=== PATIENT | female | born 1985 | race Caucasian/White ===

== ENCOUNTER 2017-11-14 22:22 | Emergency (ER) | payer MEDICAID, SELFPAY ==
[2017-11-14 22:23] VITALS: BP 112/62; PULSE 97; RESP 15; TEMP 37.1; BMI 22.1
--- NOTE | 2017-11-14 22:36 | RAD_ITS ---
STUDY: X-RAY - LEFT RADIUS AND ULNA REASON FOR EXAM: Female, 32 years old. Possible foreign body. TECHNIQUE: 2 view(s) of the forearm. COMPARISON: None. FINDINGS: There is a linear 6 mm foreign body in the dorsal soft tissues at approximately the level of the distal third of the ulna. Normal visualized radius. Normal visualized ulna. RAD/Forearm 2 Views IMPRESSION: 6 mm foreign body consistent with a broken needle in the dorsal distal soft tissues. Electronically Signed: Alejandro Carlos MD at 23:27 EDT , Service support ,
--- NOTE | 2017-11-14 22:44 | ED.VISSUMM ---
- ER Visit Summary Date of Service: 11/14/17 Chief Complaint: Metallic foreign body left forearm History of Present Illness: The patient is a 32 F who is right-hand dominant presents because of concern for metallic foreign body left forearm. She states she was injecting methamphetamine yesterday. She believes the needle broke. She complains of pain and swelling. She denies fever, chills night sweats. Denies a traumatic fever, murmur, SPE or being immune suppressed. She states she does not have HIV. Patient states she has hepatitis C. Mother states she was in a six-month rehab program. She is only been out for a couple of weeks. Physical Examination: Vital signs are unremarkable. He is afebrile. There is slight erythema and fluctuance mid dorsal ulnar side left forearm. There is no lymphangitis. There is no epitrochlear extra lymphadenopathy. Heart is regular without murmur, gallop or rub. Lungs are clear auscultation. There is no splinter hemorrhages noted. No Janeway or Osler nodes noted. Test Results: Two-view x-ray of the left forearm was obtained. There is no metallic foreign body noted. Emergency Department Course and Treatment: X-ray of the left forearm was obtained to evaluate for retained metallic foreign body. Patient will need I&D of subcutaneous abscess. Patient was prepped in sterile manner. The area was anesthetized 1% lidocaine. Incision was made. There is purulent material freely flowed from the incision. Blunt dissection was undertaken. Wick was placed. Since there is mild erythema of the skin and she admits to IV drug use she was prescribed cephalexin and Bactrim. She received first dose in the emergency department. Treatment Plan: Since she has no Dr. she was referred to [facility] [address] [place], [place] [address] for follow-up in 2 days for wound check and removal of wick Disposition: Discharged home in stable and improved condition Impression: 1. Subcutaneous left forearm abscess with cellulitis 2. IV drug use 3. History of hepatitis C This note was generated with [employer] dictation software. It may contain incorrect words, spelling, and punctuation that were not noted in review of the chart prior to signing ED Disposition - Plan for ED Patient: Disposition: Home or Assisted Living Chief Complaint: Upper Extremity Injury Instructions: ED Abscess IandD Prescriptions: Smz/Tmp Ds [Bactrim Ds] 1 tab PO BID #14 tab Cephalexin 500 mg PO 4X/DAY #28 cap Referrals: Care Physician,No Primary [Primary Care Provider] - Gracie Medina [NON-STAFF] - 2 Days for wound check
--- NOTE | 2017-11-14 22:47 | ED.DCSUM_ITS ---
- ER Visit Summary Date of Service: 11/14/17 Chief Complaint: Metallic foreign body left forearm History of Present Illness: The patient is a 32 F who is right-hand dominant presents because of concern for metallic foreign body left forearm. She states she was injecting methamphetamine yesterday. She believes the needle broke. She complains of pain and swelling. She denies fever, chills night sweats. Denies a traumatic fever, murmur, SPE or being immune suppressed. She states she does not have HIV. Patient states she has hepatitis C. Mother states she was in a six-month rehab program. She is only been out for a couple of weeks. Physical Examination: Vital signs are unremarkable. He is afebrile. There is slight erythema and fluctuance mid dorsal ulnar side left forearm. There is no lymphangitis. There is no epitrochlear extra lymphadenopathy. Heart is regular without murmur, gallop or rub. Lungs are clear auscultation. There is no splinter hemorrhages noted. No Janeway or Osler nodes noted. Test Results: Two-view x-ray of the left forearm was obtained. There is no metallic foreign body noted. Emergency Department Course and Treatment: X-ray of the left forearm was obtained to evaluate for retained metallic foreign body. Patient will need I&D of subcutaneous abscess. Patient was prepped in sterile manner. The area was anesthetized 1% lidocaine. Incision was made. There is purulent material freely flowed from the incision. Blunt dissection was undertaken. Wick was placed. Since there is mild erythema of the skin and she admits to IV drug use she was prescribed cephalexin and Bactrim. She received first dose in the emergency department. Treatment Plan: Since she has no Dr. she was referred to [facility] [address] [place], [place] [id number] for follow-up in 2 days for wound check and removal of wick Disposition: Discharged home in stable and improved condition Impression: 1. Subcutaneous left forearm abscess with cellulitis 2. IV drug use 3. History of hepatitis C This note was generated with [employer] dictation software. It may contain incorrect words, spelling, and punctuation that were not noted in review of the chart prior to signing ED Disposition - Plan for ED Patient: Disposition: Home or Assisted Living Chief Complaint: Upper Extremity Injury Instructions: ED Abscess IandD Prescriptions: Smz/Tmp Ds [Bactrim Ds] 1 tab PO BID #14 tab Cephalexin 500 mg PO 4X/DAY #28 cap Referrals: Care Physician,No Primary [Primary Care Provider] - Gracie Medina [NON-STAFF] - 2 Days for wound check
[2017-11-14] MEDS: Diphth,Pertuss(Acell),Tet Vac 0.5 ML Vial IM (22:56)
[2017-11-14 23:39] VITALS: RESP 18
[2017-11-14] MEDS: Cephalexin 500 MG Capsule PO (23:39)
[2017-11-14] MEDS: Smz/Tmp Ds Tablet 1 TABLET PO (23:39)
== END 2017-11-14 23:40 | disposition home or self-care (01) ==
PROVIDERS: Emergency Provider Emergency Medicine
DX: L02.414 Cutaneous abscess of left upper limb (principal); L03.114 Cellulitis of left upper limb; B96.89 Other specified bacterial agents as the cause of diseases classified elsewhere; B19.20 Unspecified viral hepatitis C without hepatic coma; F15.90 Other stimulant use, unspecified, uncomplicated; Z72.0 Tobacco use
CPT/HCPCS: 10061; 10060; 73090; 90471; 90715; 99283

== ENCOUNTER 2018-04-24 03:47 | Emergency (ER) | payer MEDICAID, SELFPAY ==
[2018-04-24 03:48] VITALS: BP 117/80; PULSE 98; RESP 12; TEMP 35.9; O2SAT 100; BMI 22.6
[2018-04-24 03:57] VITALS: BP 122/88; RESP 14
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
[2018-04-24 04:57] VITALS: BP 122/88; PULSE 91; RESP 14; O2SAT 98
[2018-04-24 05:00] VITALS: RESP 16
[2018-04-24 06:00] VITALS: RESP 14
[2018-04-24 07:17] VITALS: BP 125/80; PULSE 110; RESP 16; O2SAT 100
== END 2018-04-24 07:18 | disposition home or self-care (01) ==
PROVIDERS: Emergency Provider Emergency Medicine
DX: S06.0X0A Concussion without loss of consciousness, initial encounter (principal); S16.1XXA Strain of muscle, fascia and tendon at neck level, initial encounter; R40.2410 Glasgow coma scale score 13-15, unspecified time; V47.6XXA Car passenger injured in collision with fixed or stationary object in traffic accident, initial encounter; Y93.9 Activity, unspecified; Y92.9 Unspecified place or not applicable; F17.200 Nicotine dependence, unspecified, uncomplicated
CPT/HCPCS: 70450; 72125; 99284

== ENCOUNTER 2018-05-01 06:42 | Emergency (ER) | payer MEDICAID, SELFPAY ==
[2018-05-01 06:43] VITALS: BP 118/68; PULSE 120; RESP 16; TEMP 37.1; O2SAT 97; BMI 22.8
[2018-05-01] MEDS: morphine 8 MG/ML Syringe IM (07:32)
--- NOTE | 2018-05-01 07:33 | ED.VISSUMM ---
- ER Visit Summary Date of Service: 05/01/18 Chief Complaint: Abscess History of Present Illness: The patient is a 32 F with no primary care physician. She has an abscess to the right side of her face that she states began approximately a week ago. She states that she believes that this is due to picking on it while I was taking meth. States the area feels tight and she has pain is 510 when she touches it. She denies any pain otherwise. No constitutional symptoms. No fever, chills, nausea, or vomiting. She denies any dental pain. No sensitivity to hot or cold temperatures. Physical Examination: Vitals: 98.7, 118/68, 120, 16, 98% on room air which is not hypoxic. General: Well-nourished and well-developed. Patient appears to be under the influence of methamphetamine at this time. Head: Normocephalic atraumatic. Neck: Supple, no lymphadenopathy. No JVD. Nontender. Cardiovascular: Regular rate and rhythm. No murmurs. Respiratory: No respiratory distress. Clear to auscultation bilaterally. Abdominal: Soft, nontender, nondistended, normal bowel sounds. No guarding, rebound, or peritoneal signs. Back: Nontender. Extremities: Nontender, no edema. Track zavala to her antecubital fossa and forearms bilaterally. There is no evidence of infection. No erythema or abscess. Skin: 3 cm x 2 cm abscess at the angle of her mandible on the right. There is minimal overlying erythema. Neurologic: Alert and oriented ?3. Cranial nerves II through XII are intact. Normal strength and sensation. Psych: Normal affect. Emergency Department Course and Treatment: Patient was given a dose of morphine IM. She is given doxycycline p.o. She had an I&D performed. She tolerated this well. Treatment Plan: Patient will be discharged on doxycycline. She reports that she has a long-standing relationship with Dr. Kilo Olivas. She will be discharged instructions to follow-up with them in 2 days for a wound check. Return to the emergency department for any worsening symptoms. Disposition: To home in improved and stable condition. Impression: 1. Abscess to right mandible. 2. Incision and drainage. Procedure Note: Abscess was cleansed with chlorhexidine soap. Anesthetized with 1% lidocaine without epinephrine. An incision was made with an 11 scalpel blade. A moderate amount of pus was drained. Curved hemostats were used to break up loculations. The wound was copiously irrigated with normal saline. The patient tolerated it well. This note was generated with [employer] dictation software. It may contain incorrect words, spelling, and punctuation that were not noted in review of the chart prior to signing ED Disposition - Plan for ED Patient: Disposition: Home or Assisted Living Chief Complaint: Abscess Instructions: ED Abscess IandD Prescriptions: Doxycycline 100 mg PO BID #20 capsule Ibuprofen [Motrin] 400 mg PO Q6H PRN #30 tablet PRN Reason: Pain Mupirocin [Bactroban] 1 applic TOPICAL TID #1 tube Referrals: Kilo Olivas MD [STAFF PHYSICIAN] - 2 Days for wound check
[2018-05-01] MEDS: Doxycycline 100 MG CAPSULE PO (08:30)
[2018-05-01 08:31] VITALS: PULSE 115; RESP 17; O2SAT 95
== END 2018-05-01 08:33 | disposition home or self-care (01) ==
PROVIDERS: Emergency Provider Emergency Medicine
DX: L02.01 Cutaneous abscess of face (principal); J45.909 Unspecified asthma, uncomplicated; Z72.0 Tobacco use; Z86.19 Personal history of other infectious and parasitic diseases
CPT/HCPCS: 10060; 96372; 99283

== ENCOUNTER 2018-06-13 20:13 | Emergency (ER) | payer MEDICAID, SELFPAY ==
[2018-06-13 20:13] VITALS: BP 112/75; PULSE 115; RESP 14; TEMP 36.7; O2SAT 98; BMI 20.3
[2018-06-13] MEDS: Smz/Tmp Ds Tablet 1 TABLET PO (20:48)
--- NOTE | 2018-06-13 20:56 | ED.DCSUM_ITS ---
- ER Visit Summary Date of Service: 06/13/18 Chief Complaint: Abscess History of Present Illness: The patient is a 32 F presents to the emergency department with abscess. The patient has a history of MRSA. She has a history of methamphetamine and heroin abuse. She states over the past 4 days, she had an area of redness in the upper outer aspect of her labia. She states that she thought was an ingrown hair and pulled 2 hairs out but it did not drain. She states she tried to squeeze it and it seemed to make it worse. She denies any fevers or chills. She has not tried anything else for it. Physical Examination: Exam is relatively unremarkable. The patient does have a 1 cm ovoid area of abscess with mild surrounding cellulitis in the upper outer aspect of the upper portion of the right labia. It is not a Bartholin's gland cyst. It does not communicate with the introitus. Test Results: [] Emergency Department Course and Treatment: Exam was done with female nurse manufacturing engineer automotive. I do feel the patient is going require incision and drainage. The area was prepped. It was anesthetized with lidocaine with epinephrine. Small incision was made and loculations were expressed. The pocket was shallow and would not tolerate packing. Patient will continue warm compresses. She will be placed on Bactrim. She was counseled concerning symptoms and reasons to return. I do want her to follow-up in 48 hours for wound check. She is comfortable with this plan of care. Treatment Plan: [] Disposition: Discharge Impression: Pelvic abscess with incision and drainage This note was generated with [employer] dictation software. It may contain incorrect words, spelling, and punctuation that were not noted in review of the chart prior to signing ED Disposition - Plan for ED Patient: Chief Complaint: Abscess Instructions: ED Abscess IandD Prescriptions: Smz/Tmp Ds [Bactrim Ds] 1 tab PO BID #14 tab Referrals: Gracie Medina [NON-STAFF] - 2 Days for wound check
[2018-06-13 21:29] VITALS: PULSE 80; RESP 15; O2SAT 95
== END 2018-06-13 21:29 | disposition home or self-care (01) ==
LOC: ED 20:40
PROVIDERS: Emergency Provider Emergency Medicine
DX: N76.4 Abscess of vulva (principal); Z86.14 Personal history of Methicillin resistant Staphylococcus aureus infection
CPT/HCPCS: 56405; 99282

== ENCOUNTER 2018-07-12 10:34 | Day surgery (SDC) | payer MEDICAID, SELFPAY ==
[2018-07-12 10:54] VITALS: BP 110/70; PULSE 108; RESP 18; TEMP 36.9; O2SAT 100; BMI 21.7
--- NOTE | 2018-07-12 12:05 | PCM.DC ---
You will use the following diet at home:: Regular Discharge Activity: Return to Normal Activity, - - Keep dressing dry Additional Activity Instructions:: Call [facility] to make an appointment for dressing removal Allergies/Adverse Reactions: Allergies No Known Allergies Allergy (Verified 06/13/18 20:16) Medications to take at Discharge Smz/Tmp Ds [Bactrim Ds] 1 tab PO BID #14 tab 06/13/18 Primary Care Physician: Care Physician,No Primary [Primary Care Provider] - Test Results: Test results from this visit will be discussed in further detail at your follow-up appointment, if applicable.
--- NOTE | 2018-07-12 12:48 | OP.PCM_ITS ---
Report of Operation Date of Procedure: 07/12/18 Pre-Operative Diagnosis: left auricular hematoma Post-Operative Diagnosis: same Surgery/Procedure Performed:: incision and drainage left auricular hematoma with bolster placement Type of Anesthesia:: Local Specimen's removed: none Estimated Blood Loss (mL): minimal Description of Procedure: The patient was taken to the OR on 05/11/19. She was placed in the supine position on the OR table. The left ear was prepped and draped steriley. I injected 1% lidocaine into the skin medially and laterally in the ear. I then made a stab incision in the conchal bowl skin with a 15 blade. An iris scissors was placed into the hematoma cavity and the hematoma was then evacuated with suction and pressure. Next, I closed the incision with 6-0 fast absorbing gut. A bolster was created with dental rolls. A roll was placed in the conchal bowl and another was placed posteriorly. This was sewn through and through with 3-0 Prolene. A Graham dressing was then applied. She was removed from the OR and brought to the holding area in stable condition. Blood loss minimal, replacement none. Sponge, needle and instrument count were correct at the end of the procedure.
[2018-07-12] MEDS: Acetaminophen 325 MG Tablet 650 MG PO (13:01)
[2018-07-12 13:02] VITALS: BP 104/78; BP 110/70; PULSE 70; RESP 18; TEMP 37.1; O2SAT 99
== END 2018-07-12 13:08 | disposition home or self-care (01) ==
LOC: SDC 10:36 → AC 10:37
PROVIDERS: Referring Provider Otolaryngology; Visit Provider Otolaryngology
PROC: (CPT 120; principal; 2018-07-12 11:40)
DX: H61.122 Hematoma of pinna, left ear (principal); F17.210 Nicotine dependence, cigarettes, uncomplicated
CPT/HCPCS: 69000

== ENCOUNTER 2018-07-26 22:23 | Emergency (ER) | payer MEDICAID, SELFPAY ==
[2018-07-26 22:24] VITALS: BP 153/60; PULSE 63; RESP 14; TEMP 36.4; O2SAT 93; BMI 21.5
--- NOTE | 2018-07-26 23:46 | ED.DCSUM_ITS ---
History of Present Illness Chief Complaint: Ear Problem Informant: Patient Narrative: Patient presenting for evaluation of her left ear, which is sore and swollen. She had a cauliflower ear and had surgical drainage [address] Olivas. She states that after half a week or so, she decided to cut out the sutures holding the bolsters herself, and removed everything. Subsequently, her auricular hematoma recurred. She went to an emergency department in [place] 4-5 days ago, had it aspirated and wrapped with gauze, and placed on Cipro, but subsequently it gradually became worse again. She saw ENT earlier today, Dr. Vincent covering for Dr. Olivas in the office, who advised her to return tomorrow morning to see her doctor and that she could come to the ER if it got worse. She states it is a little more swollen now than it was earlier today, but admits that it has been swollen for about a week as it is now, to some degree or another. She denies any fevers, drainage, or significant increase in her pain. Past Medical History - Allergies and Home Meds Allergies/Adverse Reactions: Allergies No Known Allergies Allergy (Verified 07/26/18 22:24) Primary Care Physician: Omkar Olivas MD [STAFF PHYSICIAN] - 07/27/18 (as scheduled) Care Physician,No Primary [Primary Care Provider] - Lives: Spouse/ Significant Other Smoking Status: Current every day smoker Drugs: - - frequent methamphetamine use Review of Systems General: Denies: Chills, Fever ENT: Reports: Left ear pain Physical Exam Vital Signs/Narrative: Vital Signs Temp Pulse Resp BP Pulse Ox 07/26/18 22:24 97.5 F L 63 14 153/60 H 93 Inital Vital Signs reviewed: Yes General: Well nourished, Well developed, No Acute Distress - Sitting in the bed, using nail georgian, painting her nails Head: Normocephalic, Atraumatic Eyes: Perrl, EOMI ENT: No rhinorrhea, TM's clear, - - large, mildly tender, auricular hematoma left pinna. no erythema/cellulitis. no discharge expressible from otherwise unremarkable recent aspiration site anteriorly. not fluctuant. no mastoid swelling/tenderness/erythema.. Negative for: Nasal congestion, Sinus tenderness Neck: Supple, Nontender, No lymphadenopathy Respiratory: No distress Skin: Normal color, No rash Neurological: Alert, Oriented x3, Cranial nerves II-XII grossly intact, Normal Strength, Normal Sensation Psychological: Normal affect, Normal Mood Diagnostic/Tx/Re-eval - Medical Decision Making I discussed with Dr. Olivas, who happened to be on-call for ENT tonight. He knows the patient, and states she will need the surgery repeated, in the operating room. He states it will not be harmful for the patient to wait to have this done. I discussed with the patient that she presents when the emergency department is full, and I am the only physician here. I offered to open her auricle and drain the hematoma, but there is no point in doing that at this time, given her recent history, unless I am able to suture bolsters in. That will take some time, I offered to do it for her. I advised her that there may be a wait before I am able to perform the procedure. She states she does not want to wait, states she has an appointment at 0945 with ENT, and prefers to do that. Given her recent history, I do not think that simply aspirating the blood and having it recur again would be helpful here, although it would be faster and less complicated, since it would increase the risk for infection. ED Disposition - Plan for ED Patient: Disposition: Home or Assisted Living Diagnosis: Hematoma of auricle Instructions: ED Wound Check Post Op No Infec Referrals: Care Physician,No Primary [Primary Care Provider] - Omkar Olivas MD [STAFF PHYSICIAN] - 07/27/18 (as scheduled) Additional Instructions: Continue taking your Cipro.
== END 2018-07-26 23:56 | disposition home or self-care (01) ==
PROVIDERS: Emergency Provider Emergency Medicine
DX: H61.122 Hematoma of pinna, left ear (principal); F15.90 Other stimulant use, unspecified, uncomplicated; F17.200 Nicotine dependence, unspecified, uncomplicated
CPT/HCPCS: 99282

== ENCOUNTER 2018-08-04 20:24 | Emergency (ER) | payer MEDICAID, SELFPAY ==
[2018-08-04 20:25] VITALS: BP 120/84; PULSE 120; RESP 16; TEMP 36.7; O2SAT 98; BMI 21.4
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
== END 2018-08-04 21:38 | disposition left against medical advice (07) ==
LOC: ED 21:53
PROVIDERS: Emergency Provider Emergency Medicine
DX: R69 Illness, unspecified (principal); Z53.21 Procedure and treatment not carried out due to patient leaving prior to being seen by health care provider

== ENCOUNTER 2018-10-28 01:20 | Emergency (ER) | payer MEDICAID, SELFPAY ==
[2018-10-28 01:22] VITALS: BP 119/82; PULSE 108; RESP 16; TEMP 37.1; O2SAT 97; BMI 21.9
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
== END 2018-10-28 02:11 | disposition home or self-care (01) ==
LOC: ED 02:02
PROVIDERS: Emergency Provider Emergency Medicine
DX: S09.90XA Unspecified injury of head, initial encounter (principal); Y04.2XXA Assault by strike against or bumped into by another person, initial encounter; Y93.89 Activity, other specified; Y92.9 Unspecified place or not applicable; F17.200 Nicotine dependence, unspecified, uncomplicated
CPT/HCPCS: 99284

== ENCOUNTER 2018-11-25 13:56 | Emergency (ER) | payer MEDICAID, SELFPAY ==
[2018-11-25 13:57] VITALS: BP 137/68; PULSE 105; RESP 16; TEMP 36.7; O2SAT 99; BMI 21.3
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
[2018-11-25 16:10] VITALS: BP 113/70; PULSE 83; RESP 15
== END 2018-11-25 16:16 | disposition home or self-care (01) ==
PROVIDERS: Emergency Provider Emergency Medicine
DX: S00.431A Contusion of right ear, initial encounter (principal); Y04.0XXA Assault by unarmed brawl or fight, initial encounter; Y93.89 Activity, other specified; Y92.9 Unspecified place or not applicable; F17.200 Nicotine dependence, unspecified, uncomplicated
CPT/HCPCS: 70450; 99284

== ENCOUNTER 2019-02-18 21:17 | Emergency (ER) | payer MEDICAID, SELFPAY ==
[2019-02-18 21:18] VITALS: BP 128/80; PULSE 120; RESP 16; TEMP 36.8; O2SAT 98; BMI 21.3
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
[2019-02-18 21:27] VITALS: BP 130/85; PULSE 116; RESP 18; O2SAT 99
[2019-02-18 22:06] VITALS: BP 127/85; PULSE 111; RESP 18; O2SAT 100
== END 2019-02-18 22:07 | disposition home or self-care (01) ==
PROVIDERS: Emergency Provider Emergency Medicine
DX: T40.1X1A Poisoning by heroin, accidental (unintentional), initial encounter (principal); J96.90 Respiratory failure, unspecified, unspecified whether with hypoxia or hypercapnia; Y92.009 Unspecified place in unspecified non-institutional (private) residence as the place of occurrence of the external cause; F15.10 Other stimulant abuse, uncomplicated; F17.200 Nicotine dependence, unspecified, uncomplicated
CPT/HCPCS: 99285

== ENCOUNTER 2019-03-15 19:01 | Inpatient (IN) | payer MEDICAID, SELFPAY ==
[2019-03-10 00:11] VITALS: BMI 20.6
[2019-03-15 19:01] VITALS: BP 100/78; PULSE 109; RESP 16; TEMP 36.6; O2SAT 96; BMI 19.8
[2019-03-15] MEDS: 0.9% Normal Saline 1,000 ML 1000 ML IV (19:40)
[2019-03-15] MEDS: Ondansetron 4 MG/2 ML Vial IV (19:41)
--- NOTE | 2019-03-15 19:49 | ED.DCSUM_ITS ---
- ER Visit Summary Date of Service: 03/15/19 Chief Complaint: Vomiting and diarrhea History of Present Illness: The patient is a 33 F presenting with vomiting and diarrhea. She states this started yesterday. She states she is trying to stop using heroin and fentanyl. She is transitioning to methamphetamine in attempt to stop heroin and fentanyl. Today she thought she may be in withdrawal from heroin and used again this afternoon. She states her symptoms improved but did not resolve. She continued to have vomiting and diarrhea. Denies abdominal pain. Denies fever. Denies other complaints. Physical Examination: Vitals are stable. Patient is afebrile. Alert no acute distress. HEENT exam is unremarkable. Multiple abrasions Neck is supple. Lungs are clear and equal bilaterally. Heart is regular rate and rhythm. Abdomen is soft nontender nondistended. No guarding or rebound Extremities are unremarkable. Skin is warm and dry. No focal neurologic deficit. Remainder of exam is unremarkable. Emergency Department Course and Treatment: Patient was given IV fluids, Zofran. CBC shows white count 11.5. Chemistries show sodium 131, potassium 5.3, BUN 24, creatinine 1.88. Total bili 3.4, alk phos 413, ALT 1760, AST 1771, lipase is normal. Urinalysis shows 0-5 white blood cells, 0 red blood cells. hCG negative. Gallbladder ultrasound shows normal right upper quadrant ultrasound examination. Due to elevated liver enzymes, discussed with the hospitalist for admission. Disposition: Admission Impression: Elevated liver enzymes, opiate withdrawal, vomiting and diarrhea This note was generated with [employer] dictation software. It may contain incorrect words, spelling, and punctuation that were not noted in review of the chart prior to signing ED Disposition - Plan for ED Patient: Referrals: Care Physician,No Primary [Primary Care Provider] -
[2019-03-15 19:53] LABS: Absolute Lymphocyte Count 2.43 X10^3/uL (0.83-4.51); Absolute Neutrophil Count 8.1 X10^3/uL (2.0-7.7); Basophil# 0.06 X10^3/uL; Basophil% 0.5 % (0-1); Hematocrit 48.1 % (37-47); Hemoglobin 14.7 g/dL (12.0-15.0); Lymphocyte # 2.43 X10^3/ul (4.0); Lymphocyte % 21.1 % (19-41); Mean Corp Hgb Conc 30.6 g/dL (32-36); Mean Corpuscular Hgb 26.2 pg (27.0-32.0); Mean Corpuscular Volume 85.7 fL (81-99); Mean Platelet Vol. 10.8 fl (6.2-12.0); Monocyte# 0.87 X10^3/uL; Monocyte% 7.6 % (0-10); NRBC Flagged by Analyzer 0 % (0-5); Neutrophil # 8.07 X10^3/uL (2.7-7.7); Neutrophil % 70.3 % (47-70); POSITIVE MORPHOLOGY YES; Platelet Count 337 K/mm3 (150-450); RBC Distribution Width CV 14.9 % (11.6-14.6); Red Blood Count 5.61 M/mm3 (4.2-5.4); White Blood Count 11.5 K/mm3 (4.4-11.0)
[2019-03-15 19:54] LABS: Differential Indicated SCAN CRITERIA MET
[2019-03-15 20:00] LABS: Internal QC Validated? YES +Cl - CLEAR BKGD
[2019-03-15 20:02] LABS: Pregnancy, Serum, hCG Quali. NEGATIVE Negative
[2019-03-15 20:06] LABS: Color, Urine Amber (Yellow); Glucose, Dipstick Normal (Normal); Ketone-Dipstick 5 mg/dl (Negative); Leukocyte Esterase-Dipstick 100 /ul (Negative); Nitrite-Dipstick Positive (Negative); Occult Blood-Urine 25 /ul (Negative); Protein-Dipstick 100 mg/dl (Negative); Red Blood Cells-Urine 0 SEEN /hpf (0-5); Specific Gravity, Urine 1.025 (1.002-1.030); Urine Clarity Cloudy (Clear); Urine Urobilinogen 8 mg/dl (Normal)
[2019-03-15 20:11] LABS: Urine Bilirubin Dipstick 6 mg/dL (Negative)
[2019-03-15 20:14] LABS: Bacteria 4+ /hpf (None Seen)
[2019-03-15 20:16] LABS: Calcium Oxalate Crystals Ur 1+ /hpf (<or=2+); Squamous Epithelial Cells - UA 0-5 SEEN /hpf (5-10); White Blood Cells 0-5 SEEN /hpf (0-5)
[2019-03-15 20:17] LABS: Renal Epithelial Cells 0-5 SEEN /hpf (0-5)
[2019-03-15 20:20] LABS: Fine Granular Cast- Urine 0-5 SEEN /lpf (0-5); Mucous, Urine 1+ /hpf (<or=2+)
[2019-03-15 20:24] LABS: Hyaline Cast 5-10 SEEN /lpf (0-5)
[2019-03-15 20:32] LABS: ALB/GLOB Ratio 0.6 RATIO (0.9-2.4); AST(SGOT) 1771 U/L (15-37); Alanine Aminotransfer ALT/SGPT 1760 U/L (13-56); Albumin, Serum 3.8 g/dL (3.2-5.0); Alkaline Phosphatase 413 U/L (45-117); Anion Gap 10 (5-15); BUN 24 mg/dL (7-18); BUN/Creat Ratio 12.8 RATIO (10-20); Calcium,Total 9.7 mg/dL (8.5-10.1); Chloride 100 mmol/L (98-107); Creatinine, Serum 1.88 mg/dL (0.55-1.02); EST Glomerular Filtration Rate 32 mL/min (>60); Est Glom Filt Rate - Afr Amer 39 mL/min (>60); Globulin 6.2 g/dL (2.2-4.2); Glucose 97 mg/dL (74-106); Lipase 199 U/L (73-393); Potassium 5.3 mmol/L (3.5-5.1); Sodium Level 131 mmol/L (136-145)
[2019-03-15 20:33] LABS: Transitional Epithelial - Ur 5-10 SEEN /hpf (0-5)
[2019-03-15 20:34] LABS: Amorphous Sediment 1+
[2019-03-15 20:41] LABS: Platelet Estimate ADEQUATE (ADEQ)
[2019-03-15 20:42] LABS: Red Cell Morphology NORM C+C NORMAL (NORM C&C)
[2019-03-15] MEDS: 0.9% Normal Saline 1,000 ML 999 ML IV (21:02)
--- NOTE | 2019-03-15 21:19 | US_ITS ---
STUDY: ABDOMINAL ULTRASOUND - RIGHT UPPER QUADRANT REASON FOR VISIT: Female, 33 years old abdominal pain. TECHNIQUE: Ultrasound evaluation of the right upper quadrant was performed with real-time and static plascencia-scale imaging. TECHNICAL QUALITY: Adequate. COMPARISON: None. FINDINGS: Liver: The liver measures 16.2 cm. There is normal echogenicity of the liver. The bile ducts are within normal limits. There is hepatic color flow. The direction of portal flow is hepatopetal. There is no demonstrated mass lesion. Gallbladder: Contracted. The gallbladder wall measures 2 mm. There is a negative sonographic Montero's sign. There is no pericholecystic fluid. There are no gallstones. Common Bile Duct (C.B.D.): The common bile duct measures 3 mm. Pancreas: Normal size of the head, body and tail of the pancreas. There is normal echogenicity of the pancreas. There is no demonstrated pancreatic mass or cyst. Right Kidney: Normal size of the right kidney. The right kidney measures 10.4 x 4.7 x 5.2 cm. Normal renal cortex. The right cortex measures 1.6 cm. There is no demonstrated renal mass or cyst. There is no right hydronephrosis. US/Gallbladder IMPRESSION: Normal right upper quadrant ultrasound examination. Electronically Signed: Anh Mcmullen MD at 22:16 EDT Tel , Service support ,
--- NOTE | 2019-03-15 23:06 | HP.PCM_ITS ---
Problem List (1) History of hepatitis C Status: Chronic (2) History of heroin use Status: Chronic (3) History of methamphetamine use Status: Chronic (4) Hepatitis Status: Acute History of Present Illness Date of Admission: 03/15/19 Chief Complaint: NAUSEA; VOMITING AND DIARRHEA The patient is a 33 year old F with a significant history of hepatitis; tobacco abuse and drug use (heroin; fentanyl and methamphetamine) who presented to the emergency department with nausea; vomiting and diarrhea. Her symptoms started a day before presentation. She reports about 8 loose stools in the past 24 hours. At times her stool looked greenish. Patient thought she was withdrawing from heroin and fentanyl since she was trying to quit these medications by increasing her intake of methamphetamine. Accordingly, she resumed shooting heroin and fentanyl. Although her symptoms of nausea; vomiting and diarrhea improved with going back to heroin and fentanyl use her symptoms did not completely resolve. Also she reports heartburn that started about 3 days prior to presentation. At the emergency department she was found to have severely elevated liver enzymes as well as creatinine. Past Medical History Past Medical History (Chronic Problems): Chronic Problems History of hepatitis C (Chronic) History of heroin use (Chronic) History of methamphetamine use (Chronic) Allergies No Known Allergies Allergy (Verified 03/15/19 19:05) Home Medications: Ambulatory Orders Medication Instructions Recorded NK 02/18/19 Surgical History: - - Right ear hematoma drained 3 days ago. Lives: With Family Smoking Status: Current every day smoker Tobacco Use: Cigarettes Alcohol: None - *Family History Maternal History Items: Cancer - Lung cancer, Diabetes, Heart Disease, Hypertension, Renal Disease Paternal History Items: Cancer - colon; and lung, Diabetes, Heart Disease Review of Systems Constitutional: Denies: Chills, Fever, Weight Change HEENT: Denies: Head Aches, Sinus Congestion, Sinus Drainage Cardiovascular: Denies: Chest Pain, Palpitations Respiratory: Denies: Cough, Shortness of breath at rest, Sputum production Gastrointestinal: Reports: Abdominal Pain, Diarrhea, Nausea, Vomiting Genitourinary: Reports: Dysuria Musculoskeletal: Denies: Joint Pain, Joint Tenderness Skin: Reports: - - Diffuse excoriations Neurological: Denies: Numbness, Tingling, Focal weakness Psychiatric: Reports: Anxiety, Depression. Denies: Homicidal Ideations, Suicidal Ideations Hematologic/ Lymphatic: Denies: Easy Bruising, Easy Bleeding VTE Information - Inpt Only VTE Present on Admission: No VTE Mechan Device Prophylaxis: None VTE Pharm Prophylaxis ordered?: No Reason prophylaxis not ordered:: Treatment Not Indicated - Low risk Patient Problems: Active and Suspected Problems Hepatitis (Acute) - Physical Exam Vitals/I&O's: Vital Signs Temp Pulse Resp BP Pulse Ox 98 F 109 H 16 100/78 96 03/15/19 19:01 03/15/19 19:01 03/15/19 19:01 03/15/19 19:01 03/15/19 19:01 Oxygen Delivery Method Room Air Weight: 47.627 kg Body Mass Index (BMI) 19.8 Intake and Output for Last 24 Hours 03/13/19 03/14/19 03/15/19 23:59 23:59 23:59 Intake Total 1000 / 1000 Balance 1000 / 1000 General: Alert, Oriented x3, Cooperative HEENT: Atraumatic, PERRLA, EOMI, Normocephalic Neck: Supple, No JVD, Negative Carotid Bruits Lungs: Clear to auscultation, Normal air movement Cardiovascular: Regular rate, No murmurs Abdomen: Bowel Sounds Present, Soft, - - Mildly tender suprapubic area. Extremities: No edema, Capillary Refill Less than 3 Seconds Skin: - - Diffuse excoriations on nasal bridge and rest of body. Musculoskeletal: No Tenderness to Palpation of Joints or Extremities Neurological: Cranial nerves II-XII grossly intact Psych/Mental Status: Normal Affect, Appropriate Laboratory Results 03/15/19 19:45: WBC 11.5 H, RBC 5.61 H, Hgb 14.7, Hct 48.1 H, MCV 85.7, MCH 26.2 L, MCHC 30.6 L, RDW Std Deviation 47.0 H, RDW Coeff of Owen 14.9 H, Plt Count 337, MPV 10.8, Immature Gran % (Auto) 0.500, Neut % (Auto) 70.3 H, Lymph % (Auto) 21.1, [place] % (Auto) 7.6, Eos % (Auto) 0.0, Baso % (Auto) 0.5, Absolute Neuts (auto) 8.1 H, Absolute Lymphs (auto) 2.43, Nucleated RBC % 0, Diff Path Review May , Platelet Estimate ADEQUATE, RBC Morphology NORM C+C 03/15/19 19:45: Sodium 131 L, Potassium 5.3 H, Chloride 100, Carbon Dioxide 21.0, Anion Gap 10, BUN 24 H, Creatinine 1.88 H, Estim Creat Clear Calc 31.70, Est GFR (MDRD) Af Amer 39 L, Est GFR (MDRD) Non-Af 32 L, BUN/Creatinine Ratio 12.8, Glucose 97, Calcium 9.7, Total Bilirubin 3.40 H, AST 1771 H, ALT 1760 H, Alkaline Phosphatase 413 H, Total Protein 10.0 H, Albumin 3.8, Globulin 6.2 H, Albumin/Globulin Ratio 0.6 L, Lipase 199 03/15/19 19:45: Serum , Qual NEGATIVE 03/15/19 19:50: Urine Color [place], Urine Clarity Cloudy, Urine pH 5.0, Ur Specific [place] 1.025, Urine Protein 100 H, Urine Glucose (UA) Normal, Urine Ketones 5 H, Urine Occult Blood 25 H, Urine Nitrite Positive H, Urine Bilirubin 6 H, Urine Urobilinogen 8 H, Ur Leukocyte Esterase 100 H, Urine RBC 0 SEEN, Urine WBC 0-5 SEEN, Ur Squamous Epith Cells 0-5 SEEN, Ur Transition Epith Cell 5-10 SEEN, Ur Renal Epithelial Cell 0-5 SEEN, Calcium Oxalate Crystal 1+, Amorphous Sediment 1+, Urine Bacteria 4+, Hyaline Casts 5-10 SEEN, Fine Granular Casts 0-5 SEEN, Urine Mucus 1+ Assessment/Plan All Active Problems Hepatitis (Acute) The patient is a 33 year old F with a significant history of hepatitis; tobacco abuse and drug use (heroin; fentanyl and methamphetamine) who presented to the emergency department with nausea; vomiting and diarrhea; and found to have severely elevated liver enzymes and creatinine consistent with acute on chronic hepatitis. Acute on chronic hepatitis Ultrasound of the gallbladder emergency department was unremarkable. Noted to have severely elevated liver enzymes. Her AST was 1771; her ALT was 1760; her alkaline phosphatase was 413. She reports that she was diagnosed with hepatitis C around 2015 but she has to be 6 months clean before she can begin therapy for hepatitis C. On 09/17/2016 her AST was 68;and her ALT was 31. Will check acute hepatitis panel. Check Tylenol level. Check PT/INR. Trend CMP. Zofran as needed for nausea and vomiting. Supportive treatment with IV fluids. FAWN Patient's creatinine was 1.88 Review of records shows highest creatinine in 2017 was 1.11. All other creatinine level was less than 1. BUN is 24. BUN over creatinine is 12.8. Likely intrinsic renal from progression of prerenal FAWN. IV hydration. Avoid nephrotoxins. Trend BMP. Probable acute cystitis Patient can complain of suprapubic pain Her urine looks grossly brown. Her urinalysis is abnormal. Will start patient on ceftriaxone. Neutrophilic leukocytosis This could be due to hepatitis; cystitis; or other Trend CBC. Opiate dependence with risk of withdrawal We will put on buprenorphine taper Hyperkalemia On presentation her potassium was 5.3. Likely due to FAWN. IV fluids as above. Trend CMP Hyponatremia Likely secondary to vomiting. IV hydration as above Trend CMP DVT Prophylaxis Low risk; ambulate. Code Visit Inpatient E&M: 94517 Init Hosp L3
[2019-03-15 23:07] VITALS: BP 103/64; PULSE 88; RESP 16; O2SAT 99
[2019-03-15 23:46] VITALS: BP 103/64; PULSE 88; RESP 15; O2SAT 98
[2019-03-15 23:52] VITALS: BMI 19.5
[2019-03-15 23:56] VITALS: BP 112/69; PULSE 76; RESP 18; TEMP 36.7; O2SAT 99
[2019-03-15 23:57] VITALS: BP 108/62
[2019-03-16] VITALS: BMI 19.5
[2019-03-16] MEDS: 0.9% Normal Saline 1,000 ML 100 ML IV ×2 (00:38→10:08)
[2019-03-16] MEDS: Dicyclomine 10 MG Capsule 20 MG PO ×2 (00:38→08:32)
[2019-03-16] MEDS: Ceftriaxone 1 GM/50 ML BAG IV ×2 (01:03→22:45)
[2019-03-16] MEDS: Buprenorphine HCl 2 MG TAB.SUBL SL ×2 (01:03→08:32)
[2019-03-16] MEDS: 0.9% Saline Lock 10 ML Syringe IV ×2 (01:11→22:44)
[2019-03-16 01:40] LABS: Acetaminophen (Tylenol) Level < 2.0 ug/mL (10.0-30.0)
[2019-03-16 05:00] VITALS: BP 93/53; PULSE 81; RESP 16; TEMP 37.6; O2SAT 98
[2019-03-16 05:57] LABS: Absolute Lymphocyte Count 1.98 X10^3/uL (0.83-4.51); Basophil# 0.02 X10^3/uL; Basophil% 0.3 % (0-1); Eosinophil# 0.07 X10^3/uL; Hematocrit 34.6 % (37-47); Hemoglobin 10.8 g/dL (12.0-15.0); Lymphocyte # 1.98 X10^3/ul (4.0); Lymphocyte % 29.2 % (19-41); Mean Corp Hgb Conc 31.2 g/dL (32-36); Mean Corpuscular Hgb 26.6 pg (27.0-32.0); Mean Corpuscular Volume 85.2 fL (81-99); Mean Platelet Vol. 10.9 fl (6.2-12.0); Monocyte# 0.66 X10^3/uL; Monocyte% 9.7 % (0-10); NRBC Flagged by Analyzer 0 % (0-5); Neutrophil # 4.03 X10^3/uL (2.7-7.7); Neutrophil % 59.5 % (47-70); POSITIVE MORPHOLOGY YES; Platelet Count 264 K/mm3 (150-450); RBC Distribution Width CV 14.8 % (11.6-14.6); RBC Distribution Width SD 46.2 fl (35.1-43.9); Red Blood Count 4.06 M/mm3 (4.2-5.4); White Blood Count 6.8 K/mm3 (4.4-11.0)
[2019-03-16 05:59] LABS: International Normalized Ratio 1.2; Prothrombin Time (Protime)PT. 14.5 SECONDS (11.7-14.9)
[2019-03-16 06:13] LABS: Differential Indicated SCAN CRITERIA MET
[2019-03-16 06:38] LABS: ALB/GLOB Ratio 0.6 RATIO (0.9-2.4); AST(SGOT) 1365 U/L (15-37); Alanine Aminotransfer ALT/SGPT 1275 U/L (13-56); Albumin, Serum 2.5 g/dL (3.2-5.0); Alkaline Phosphatase 294 U/L (45-117); Anion Gap 5 (5-15); BUN 16 mg/dL (7-18); BUN/Creat Ratio 19.4 RATIO (10-20); Calcium,Total 8.1 mg/dL (8.5-10.1); Chloride 108 mmol/L (98-107); Creatinine, Serum 0.83 mg/dL (0.55-1.02); EST Glomerular Filtration Rate 84 mL/min (>60); Est Glom Filt Rate - Afr Amer 101 mL/min (>60); Estimated Creatinine Clearance 70.71 ml/min; Globulin 4.3 g/dL (2.2-4.2); Glucose 105 mg/dL (74-106); Potassium 3.7 mmol/L (3.5-5.1); Protein, Total 6.8 g/dL (6.4-8.2); Sodium Level 138 mmol/L (136-145)
[2019-03-16 06:41] LABS: Differential Comment SCANNED; Reactive Lymphocyte 1+
[2019-03-16 07:50] VITALS: O2SAT 94
[2019-03-16 08:24] VITALS: BP 100/50; PULSE 78; RESP 16; TEMP 36.9; O2SAT 95
--- NOTE | 2019-03-16 10:28 | CASEMGMT ---
JULIEN met with patient per her request. Introduced self and role at [facility]. She said she has a child support hearing today at 1030 and she is not going to be able to make it. She called her mom who is at the Child Support Agency and obtained a fax number for a letter. JULIEN faxed a letter indicating patient is a patient here at the hospital and d/c is unknown at this time. JULIEN faxed this letter to the number patient gave to JULIEN. (fax [phone]). Nataliia HOWE MSW
--- NOTE | 2019-03-16 10:59 | CASEMGMT ---
SW spoke with patient and asked if she would like resources for substance abuse treatment. She was dozing off and on during conversation. She said she had tried going to [facility] a few times, but ended up not going, because she was not ready. She said she does have an appt at [facility] next Thursday. JULIEN also gave her a list of primary care doctors. Nataliia HOWE MSW
[2019-03-16] MEDS: Mag Hydrox/Al Hydrox/Simeth 30 ML UDC PO (12:00)
[2019-03-16 12:50] LABS: Pathologist Review Reviewed
[2019-03-16] MEDS: hydrOXYzine PAM 25 MG Capsule 50 MG PO (13:28)
[2019-03-16] MEDS: Pramipexole Di-HCl 0.25 MG Tablet PO (13:28)
--- NOTE | 2019-03-16 14:20 | PCM.PROGNOTE ---
<Simba Almonte - Last Filed: 03/16/19 14:20> Patient Problems: Active and Suspected Problems Hepatitis (Acute) Subjective: Nausea and vomiting resolved. Has suprapubic pain. Denies dysuria. No fever/chills. No LLYOD/Dizziness/LH. Also complains of heartburn and requesting medication. Worse after eating and laying down. Denies bloody or coffee ground emesis. - Physical Exam Vitals/I&O's: Vital Signs Temp Pulse Resp BP Pulse Ox 98.4 F 78 16 100/50 L 95 03/16/19 08:24 03/16/19 08:24 03/16/19 08:24 03/16/19 08:24 03/16/19 08:24 Oxygen Delivery Method Room Air Weight: 103 lb 6.349 oz Body Mass Index (BMI) 19.5 Intake and Output for Last 24 Hours 03/14/19 03/15/19 03/16/19 23:59 23:59 23:59 Intake Total 1999 1641.75 / 1641.75 Balance 1999 1641.75 / 1641.75 General: Alert, Oriented x3, Cooperative HEENT: Atraumatic, PERRLA, EOMI, Normocephalic, - - nasal abrasion. nonbleeding noninfected. Neck: Supple, No JVD, Negative Carotid Bruits Lungs: Clear to auscultation, Normal air movement Cardiovascular: Regular rate, No murmurs Abdomen: Bowel Sounds Present, Soft, Non Tender Extremities: No edema, Capillary Refill Less than 3 Seconds Skin: No rashes, No breakdown, - - track zavala BL arms. No evidence of cellulitis or abscess. Musculoskeletal: No Tenderness to Palpation of Joints or Extremities Neurological: Cranial nerves II-XII grossly intact Psych/Mental Status: Normal Affect, Appropriate, Alert and oriented to time, place, person, mood and affect Laboratory Results 03/15/19 19:45: WBC 11.5 H, RBC 5.61 H, Hgb 14.7, Hct 48.1 H, MCV 85.7, MCH 26.2 L, MCHC 30.6 L, RDW Std Deviation 47.0 H, RDW Coeff of Owen 14.9 H, Plt Count 337, MPV 10.8, Immature Gran % (Auto) 0.500, Neut % (Auto) 70.3 H, Lymph % (Auto) 21.1, [place] % (Auto) 7.6, Eos % (Auto) 0.0, Baso % (Auto) 0.5, Absolute Neuts (auto) 8.1 H, Absolute Lymphs (auto) 2.43, Nucleated RBC % 0, Diff Path Review Reviewed, Platelet Estimate ADEQUATE, RBC Morphology NORM C+C 03/15/19 19:45: Sodium 131 L, Potassium 5.3 H, Chloride 100, Carbon Dioxide 21.0, Anion Gap 10, BUN 24 H, Creatinine 1.88 H, Estim Creat Clear Calc 31.70, Est GFR (MDRD) Af Amer 39 L, Est GFR (MDRD) Non-Af 32 L, BUN/Creatinine Ratio 12.8, Glucose 97, Calcium 9.7, Total Bilirubin 3.40 H, AST 1771 H, ALT 1760 H, Alkaline Phosphatase 413 H, Total Protein 10.0 H, Albumin 3.8, Globulin 6.2 H, Albumin/Globulin Ratio 0.6 L, Lipase 199 03/15/19 19:45: Serum , Qual NEGATIVE 03/15/19 19:50: Urine Color [place], Urine Clarity Cloudy, Urine pH 5.0, Ur Specific [place] 1.025, Urine Protein 100 H, Urine Glucose (UA) Normal, Urine Ketones 5 H, Urine Occult Blood 25 H, Urine Nitrite Positive H, Urine Bilirubin 6 H, Urine Urobilinogen 8 H, Ur Leukocyte Esterase 100 H, Urine RBC 0 SEEN, Urine WBC 0-5 SEEN, Ur Squamous Epith Cells 0-5 SEEN, Ur Transition Epith Cell 5-10 SEEN, Ur Renal Epithelial Cell 0-5 SEEN, Calcium Oxalate Crystal 1+, Amorphous Sediment 1+, Urine Bacteria 4+, Hyaline Casts 5-10 SEEN, Fine Granular Casts 0-5 SEEN, Urine Mucus 1+ 03/16/19 00:43: Acetaminophen < 2.0 L 03/16/19 05:20: Hepatitis A IgM Ab Pending, Hep Bs Antigen Pending, Hep B Core IgM Ab Pending, Hepatitis C Ab (EIA) Pending 03/16/19 05:20: WBC 6.8, RBC 4.06 L, Hgb 10.8 L, Hct 34.6 L, MCV 85.2, MCH 26.6 L, MCHC 31.2 L, RDW Std Deviation 46.2 H, RDW Coeff of Owen 14.8 H, Plt Count 264, MPV 10.9, Immature Gran % (Auto) 0.300, Neut % (Auto) 59.5, Lymph % (Auto) 29.2, [place] % (Auto) 9.7, Eos % (Auto) 1.0, Baso % (Auto) 0.3, Absolute Neuts (auto) 4.0, Absolute Lymphs (auto) 1.98, Nucleated RBC % 0, Differential Comment SCANNED, Reactive Lymphocytes 1+ 03/16/19 05:20: PT 14.5, INR 1.2 03/16/19 05:20: Sodium 138, Potassium 3.7, Chloride 108 H, Carbon Dioxide 25.0, Anion Gap 5, BUN 16, Creatinine 0.83, Estim Creat Clear Calc 70.71, Est GFR (MDRD) Af Amer 101, Est GFR (MDRD) Non-Af 84, BUN/Creatinine Ratio 19.4, Glucose 105, Calcium 8.1 L, Total Bilirubin 2.50 H, AST 1365 H, ALT 1275 H, Alkaline Phosphatase 294 H, Total Protein 6.8, Albumin 2.5 L, Globulin 4.3 H, Albumin/Globulin Ratio 0.6 L Current Medications Buprenorphine HCl (Buprenorphine Hcl) 4 mg SL Q8H GWEN; Taper Stop: 03/19/19 04:59 Last Admin: 03/16/19 08:32 Dose: 4 mg Documented by: Clonidine (Catapres) 0.1 mg PO Q2H PRN PRN PRN Reason: Hot/Cold Sweats or Anxiety Dextrose (D50w Syringe) 0 gm IV X1 PRN; Protocol PRN Reason: Hypoglycemia Dicyclomine HCl (Bentyl) 20 mg PO Q6H PRN PRN PRN Reason: Abdomnial Discomfort Last Admin: 03/16/19 08:32 Dose: 20 mg Documented by: Glucagon () 1 mg IM .X1 PRN PRN Reason: Hypoglycemia Hydroxyzine HCl (Vistaril Vial) 50 mg IM Q6H PRN PRN PRN Reason: Breakthrough Anxiety Hydroxyzine Pamoate (Vistaril Pamoate Capsule) 50 mg PO Q6H PRN PRN PRN Reason: Mild Anxiety Last Admin: 03/16/19 13:28 Dose: 50 mg Documented by: Sodium Chloride () 1,000 mls @ 100 mls/hr IV .Q10H GWEN Stop: 03/16/19 20:14 Last Admin: 03/16/19 10:08 Dose: 100 mls/hr Documented by: Ceftriaxone Sodium (Rocephin) 1 gm in 50 mls @ 100 mls/hr IV Q24@2200 GWEN Last Infusion: 03/16/19 01:33 Dose: Infused Documented by: Sodium Chloride () 250 mls @ 15 mls/hr IV .[id number] PRN PRN Reason: Saline Flush Last Infusion: 03/16/19 04:59 Dose: 0 mls/hr Documented by: Methocarbamol (Methocarbamol) 750 mg PO Q6H PRN PRN PRN Reason: Muscle Aches Ondansetron HCl (Zofran) 4 mg IV Q8H PRN PRN PRN Reason: NAUSEA/VOMITING Pramipexole Dihydrochloride (Mirapex) 0.25 mg PO Q12H PRN PRN PRN Reason: Restless Legs Last Admin: 03/16/19 13:28 Dose: 0.25 mg Documented by: Sodium Chloride () 10 ml IV UD PRN PRN Reason: SALINE FLUSH Last Admin: 03/16/19 01:11 Dose: 10 ml Documented by: Medical Necessity - Tobacco Use Smoking Status: Current every day smoker Tobacco Use: Cigarettes Assessment/Plan All Active Problems Hepatitis (Acute) 1. Acute hepatitis - hx Hep C. Hep panel pending. IV drug abuser - meth/heroin. LFTs/Bili improved. RUQ US negative. Tylenol level negative. HCG neg. 2. Acute UTI - suprapubic pain. + UA. Cultures sent. WBC improved. Continue rocephin. 3. FAWN - resolved. 4. Polysubstance abuse - IV meth, IV heroin, nicotine abuse. No alcohol use at all. 5. GERD - PPI, GI cocktail. 6. hyponatremia/hyperkalemia - resolved. DVT ppx: early ambulation DC planning: await Hep panel. Outpatient referral to ID. This patient was seen by Simba Almonte PA-C under the supervision of Doctor Julian. <Jarocho Jordan - Last Filed: 03/16/19 15:34> - Physical Exam Vitals/I&O's: Vital Signs Temp Pulse Resp BP Pulse Ox 98.4 F 78 16 100/50 L 95 03/16/19 08:24 03/16/19 08:24 03/16/19 08:24 03/16/19 08:24 03/16/19 08:24 Oxygen Delivery Method Room Air Weight: 46.9 kg Body Mass Index (BMI) 19.5 Intake and Output for Last 24 Hours 03/14/19 03/15/19 03/16/19 23:59 23:59 23:59 Intake Total 1999.75 / 2120.75 Balance 1999 / Laboratory Results 03/15/19 19:45: WBC 11.5 H, RBC 5.61 H, Hgb 14.7, Hct 48.1 H, MCV 85.7, MCH 26.2 L, MCHC 30.6 L, RDW Std Deviation 47.0 H, RDW Coeff of Owen 14.9 H, Plt Count 337, MPV 10.8, Immature Gran % (Auto) 0.500, Neut % (Auto) 70.3 H, Lymph % (Auto) 21.1, [place] % (Auto) 7.6, Eos % (Auto) 0.0, Baso % (Auto) 0.5, Absolute Neuts (auto) 8.1 H, Absolute Lymphs (auto) 2.43, Nucleated RBC % 0, Diff Path Review Reviewed, Platelet Estimate ADEQUATE, RBC Morphology NORM C+C 03/15/19 19:45: Sodium 131 L, Potassium 5.3 H, Chloride 100, Carbon Dioxide 21.0, Anion Gap 10, BUN 24 H, Creatinine 1.88 H, Estim Creat Clear Calc 31.70, Est GFR (MDRD) Af Amer 39 L, Est GFR (MDRD) Non-Af 32 L, BUN/Creatinine Ratio 12.8, Glucose 97, Calcium 9.7, Total Bilirubin 3.40 H, AST 1771 H, ALT 1760 H, Alkaline Phosphatase 413 H, Total Protein 10.0 H, Albumin 3.8, Globulin 6.2 H, Albumin/Globulin Ratio 0.6 L, Lipase 199 03/15/19 19:45: Serum , Qual NEGATIVE 03/15/19 19:50: Urine Color [place], Urine Clarity Cloudy, Urine pH 5.0, Ur Specific [place] 1.025, Urine Protein 100 H, Urine Glucose (UA) Normal, Urine Ketones 5 H, Urine Occult Blood 25 H, Urine Nitrite Positive H, Urine Bilirubin 6 H, Urine Urobilinogen 8 H, Ur Leukocyte Esterase 100 H, Urine RBC 0 SEEN, Urine WBC 0-5 SEEN, Ur Squamous Epith Cells 0-5 SEEN, Ur Transition Epith Cell 5-10 SEEN, Ur Renal Epithelial Cell 0-5 SEEN, Calcium Oxalate Crystal 1+, Amorphous Sediment 1+, Urine Bacteria 4+, Hyaline Casts 5-10 SEEN, Fine Granular Casts 0-5 SEEN, Urine Mucus 1+ 03/16/19 00:43: Acetaminophen < 2.0 L 03/16/19 05:20: Hepatitis A IgM Ab Pending, Hep Bs Antigen Pending, Hep B Core IgM Ab Pending, Hepatitis C Ab (EIA) Pending 03/16/19 05:20: WBC 6.8, RBC 4.06 L, Hgb 10.8 L, Hct 34.6 L, MCV 85.2, MCH 26.6 L, MCHC 31.2 L, RDW Std Deviation 46.2 H, RDW Coeff of Owen 14.8 H, Plt Count 264, MPV 10.9, Immature Gran % (Auto) 0.300, Neut % (Auto) 59.5, Lymph % (Auto) 29.2, [place] % (Auto) 9.7, Eos % (Auto) 1.0, Baso % (Auto) 0.3, Absolute Neuts (auto) 4.0, Absolute Lymphs (auto) 1.98, Nucleated RBC % 0, Differential Comment SCANNED, Reactive Lymphocytes 1+ 03/16/19 05:20: PT 14.5, INR 1.2 03/16/19 05:20: Sodium 138, Potassium 3.7, Chloride 108 H, Carbon Dioxide 25.0, Anion Gap 5, BUN 16, Creatinine 0.83, Estim Creat Clear Calc 70.71, Est GFR (MDRD) Af Amer 101, Est GFR (MDRD) Non-Af 84, BUN/Creatinine Ratio 19.4, Glucose 105, Calcium 8.1 L, Total Bilirubin 2.50 H, AST 1365 H, ALT 1275 H, Alkaline Phosphatase 294 H, Total Protein 6.8, Albumin 2.5 L, Globulin 4.3 H, Albumin/Globulin Ratio 0.6 L Current Medications Buprenorphine HCl (Buprenorphine Hcl) 4 mg SL Q8H GWEN; Taper Stop: 03/19/19 04:59 Last Admin: 03/16/19 08:32 Dose: 4 mg Documented by: Clonidine (Catapres) 0.1 mg PO Q2H PRN PRN PRN Reason: Hot/Cold Sweats or Anxiety Dextrose (D50w Syringe) 0 gm IV X1 PRN; Protocol PRN Reason: Hypoglycemia Dicyclomine HCl (Bentyl) 20 mg PO Q6H PRN PRN PRN Reason: Abdomnial Discomfort Last Admin: 03/16/19 08:32 Dose: 20 mg Documented by: Glucagon () 1 mg IM .X1 PRN PRN Reason: Hypoglycemia Hydroxyzine HCl (Vistaril Vial) 50 mg IM Q6H PRN PRN PRN Reason: Breakthrough Anxiety Hydroxyzine Pamoate (Vistaril Pamoate Capsule) 50 mg PO Q6H PRN PRN PRN Reason: Mild Anxiety Last Admin: 03/16/19 13:28 Dose: 50 mg Documented by: Sodium Chloride () 1,000 mls @ 100 mls/hr IV .Q10H GWEN Stop: 03/16/19 20:14 Last Infusion: 03/16/19 14:56 Dose: 100 mls/hr Documented by: Ceftriaxone Sodium (Rocephin) 1 gm in 50 mls @ 100 mls/hr IV Q24@2200 GWEN Last Infusion: 03/16/19 01:33 Dose: Infused Documented by: Sodium Chloride () 250 mls @ 15 mls/hr IV .[id number] PRN PRN Reason: Saline Flush Last Infusion: 03/16/19 04:59 Dose: 0 mls/hr Documented by: Methocarbamol (Methocarbamol) 750 mg PO Q6H PRN PRN PRN Reason: Muscle Aches Nutritional Formula (Lactose Free) (Ensure Enlive) 120 ml PO 4X/DAY GWEN Ondansetron HCl (Zofran) 4 mg IV Q8H PRN PRN PRN Reason: NAUSEA/VOMITING Pramipexole Dihydrochloride (Mirapex) 0.25 mg PO Q12H PRN PRN PRN Reason: Restless Legs Last Admin: 03/16/19 13:28 Dose: 0.25 mg Documented by: Sodium Chloride () 10 ml IV UD PRN PRN Reason: SALINE FLUSH Last Admin: 03/16/19 01:11 Dose: 10 ml Documented by: Assessment/Plan This patient was seen in conjunction with Simba Almonte PA-C . I have independently interviewed and examined the patient and reviewed pertinent historical, laboratory, and other data. Please refer to Simba Almonte PA-C note for details of this patient's presentation, findings, and recommendations. I have reviewed Simba Almonte PA-C note and concur with documented findings. In brief, patient is a 33-year-old lady with history of polysubstance abuse who presented with nausea vomiting and diarrhea patient was found to have markedly elevated liver function tests consistent with hepatitis admitted to regular nursing floor for further management after an acute hepatitis panel have been sent Physical Examination: GENERAL: restless HEENT: Atraumatic; EYES;Icteric, NECK; supple, normal thyroid, RESPIRATORY: Diminished to auscultation CARDIOVASCULAR: Regular S1 S2, GI: soft, normoactive bowel sounds, : No Renal angle tenderness; NEURO: Awake; no lateralizing signs. PSYCH; Flat affect Assessment: 1. Acute hepatitis 2. Chronic hep C 3. Acute kidney injury resolved 4. Polysubstance abuse including IV meth and heroin counseled on cessation 5. Hyperkalemia resolved 6. Hyponatremia resolved Recommendations: 1. I have discussed the results of my overview and impressions with the patient 2. Options for management were reviewed Code Visit Inpatient E&M: 21950 Subs Hosp L2
[2019-03-16 14:30] VITALS: BP 113/70; PULSE 88; RESP 16; TEMP 36.7; O2SAT 97
[2019-03-16] MEDS: Pantoprazole Sodium 40 MG Tablet PO (14:55)
--- NOTE | 2019-03-16 15:04 | CASEMGMT ---
Patient asked the RN to have SW fax the letter to [employer]. (with Child Support?) JULIEN faxed the letter to [phone] per patient's request. Nataliia HOWE MSW
[2019-03-16 20:30] VITALS: BP 108/61; PULSE 94; RESP 16; TEMP 37.6; O2SAT 97
[2019-03-16 22:48] VITALS: BP 123/61; PULSE 96; RESP 16; TEMP 37; O2SAT 96
--- NOTE | 2019-03-17 04:03 | NURSING ---
Report given to Amanda RICHMOND RN
[2019-03-17 04:26] VITALS: BP 119/73; PULSE 83; RESP 18; TEMP 36.7; O2SAT 96
[2019-03-17 05:06] LABS: HEPATITIS B SURFACE AG Negative (Negative); Hepatitis A IgM Antibody Positive (Negative); Hepatitis B Core AB IgM Negative (Negative)
[2019-03-17 06:16] LABS: Absolute Lymphocyte Count 2.45 X10^3/uL (0.83-4.51); Absolute Neutrophil Count 3.8 X10^3/uL (2.0-7.7); Basophil# 0.02 X10^3/uL; Basophil% 0.3 % (0-1); Eosinophil# 0.13 X10^3/uL; Eosinophils% 1.8 % (0-5); Hematocrit 35.7 % (37-47); Hemoglobin 11.3 g/dL (12.0-15.0); Lymphocyte # 2.45 X10^3/ul (4.0); Lymphocyte % 33.4 % (19-41); Mean Corp Hgb Conc 31.7 g/dL (32-36); Mean Corpuscular Hgb 26.4 pg (27.0-32.0); Mean Corpuscular Volume 83.4 fL (81-99); Mean Platelet Vol. 10.8 fl (6.2-12.0); Monocyte# 0.95 X10^3/uL; Monocyte% 12.9 % (0-10); NRBC Flagged by Analyzer 0 % (0-5); Neutrophil # 3.77 X10^3/uL (2.7-7.7); Neutrophil % 51.3 % (47-70); POSITIVE MORPHOLOGY YES; Platelet Count 264 K/mm3 (150-450); RBC Distribution Width CV 15.2 % (11.6-14.6); RBC Distribution Width SD 45.6 fl (35.1-43.9); Red Blood Count 4.28 M/mm3 (4.2-5.4); White Blood Count 7.3 K/mm3 (4.4-11.0)
[2019-03-17 06:30] LABS: Differential Indicated SCAN CRITERIA MET
[2019-03-17 06:49] LABS: ALB/GLOB Ratio 0.5 RATIO (0.9-2.4); AST(SGOT) 1968 U/L (15-37); Alanine Aminotransfer ALT/SGPT 1667 U/L (13-56); Albumin, Serum 2.4 g/dL (3.2-5.0); Alkaline Phosphatase 312 U/L (45-117); Anion Gap 7 (5-15); BUN 10 mg/dL (7-18); BUN/Creat Ratio 16.5 RATIO (10-20); Calcium,Total 7.8 mg/dL (8.5-10.1); Chloride 104 mmol/L (98-107); Creatinine, Serum 0.61 mg/dL (0.55-1.02); EST Glomerular Filtration Rate 120 mL/min (>60); Est Glom Filt Rate - Afr Amer 145 mL/min (>60); Estimated Creatinine Clearance 96.21 ml/min; Globulin 4.4 g/dL (2.2-4.2); Glucose 80 mg/dL (74-106); Potassium 3.9 mmol/L (3.5-5.1); Protein, Total 6.8 g/dL (6.4-8.2); Sodium Level 135 mmol/L (136-145)
[2019-03-17 07:12] LABS: Atypical Lymphocyte 2+ %; Differential Comment SCANNED
[2019-03-17 07:40] VITALS: O2SAT 97
[2019-03-17] MEDS: Buprenorphine HCl 2 MG TAB.SUBL SL ×2 (10:03→16:34)
[2019-03-17 10:04] VITALS: BP 116/68; PULSE 83; RESP 18; TEMP 36.6; O2SAT 98
--- NOTE | 2019-03-17 11:01 | PN_ITS ---
<Aruna García - Last Filed: 03/17/19 11:25> Patient Problems: Active and Suspected Problems Hepatitis (Acute) Subjective: Patient seen and examined. Drowsy during assessment. Denies current complaints. Hepatitis panel still pending. - Physical Exam Vitals/I&O's: Vital Signs Temp Pulse Resp BP Pulse Ox 98 F 83 18 116/68 98 03/17/19 10:04 03/17/19 10:04 03/17/19 10:04 03/17/19 10:04 03/17/19 10:04 Oxygen Delivery Method Room Air Weight: 103 lb 6.349 oz Body Mass Index (BMI) 19.5 Intake and Output for Last 24 Hours 03/15/19 03/16/19 03/17/19 23:59 23:59 23:59 Intake Total 1999 2691.75 / 2691.75 60 / 60 Balance 1999 2691.75 / 2691.75 60 / 60 General: Oriented x3, Cooperative, No apparent distress HEENT: Atraumatic, PERRLA, EOMI, Normocephalic Oral: Moist Mucosa Neck: Supple, No JVD, Negative Carotid Bruits Lungs: Clear to auscultation, Normal air movement Cardiovascular: Regular rate, No murmurs Abdomen: Bowel Sounds Present, Soft, Non Tender, Non-Distended Extremities: No clubbing, No cyanosis, No edema, Capillary Refill Less than 3 Seconds Skin: - - Facial/nasal abrasions, scabbed. Musculoskeletal: No Tenderness to Palpation of Joints or Extremities Neurological: Cranial nerves II-XII grossly intact, Neuro grossly intact Psych/Mental Status: Flat Affect Laboratory Results 03/15/19 19:45: Diff Path Review Reviewed 03/17/19 05:40: WBC 7.3, RBC 4.28, Hgb 11.3 L, Hct 35.7 L, MCV 83.4, MCH 26.4 L, MCHC 31.7 L, RDW Std Deviation 45.6 H, RDW Coeff of Owen 15.2 H, Plt Count 264, MPV 10.8, Immature Gran % (Auto) 0.300, Neut % (Auto) 51.3, Lymph % (Auto) 33.4, [place] % (Auto) 12.9 H, Eos % (Auto) 1.8, Baso % (Auto) 0.3, Absolute Neuts (auto) 3.8, Absolute Lymphs (auto) 2.45, Nucleated RBC % 0, Differential Comment SCANNED, Atypical Lymphocytes 2+ 03/17/19 05:40: Sodium 135 L, Potassium 3.9, Chloride 104, Carbon Dioxide 24.0, Anion Gap 7, BUN 10, Creatinine 0.61, Estim Creat Clear Calc 96.21, Est GFR (MDRD) Af Amer 145, Est GFR (MDRD) Non-Af 120, BUN/Creatinine Ratio 16.5, Glucose 80, Calcium 7.8 L, Total Bilirubin 3.90 H, AST 1968 H, ALT 1667 H, Alkaline Phosphatase 312 H, Total Protein 6.8, Albumin 2.4 L, Globulin 4.4 H, Albumin/Globulin Ratio 0.5 L Current Medications Buprenorphine HCl (Buprenorphine Hcl) 2 mg SL Q8H GWEN; Taper Stop: 03/19/19 04:59 Last Admin: 03/17/19 10:03 Dose: 2 mg Documented by: Clonidine (Catapres) 0.1 mg PO Q2H PRN PRN PRN Reason: Hot/Cold Sweats or Anxiety Dextrose (D50w Syringe) 0 gm IV X1 PRN; Protocol PRN Reason: Hypoglycemia Dicyclomine HCl (Bentyl) 20 mg PO Q6H PRN PRN PRN Reason: Abdomnial Discomfort Last Admin: 03/16/19 08:32 Dose: 20 mg Documented by: Glucagon () 1 mg IM .X1 PRN PRN Reason: Hypoglycemia Hydroxyzine HCl (Vistaril Vial) 50 mg IM Q6H PRN PRN PRN Reason: Breakthrough Anxiety Hydroxyzine Pamoate (Vistaril Pamoate Capsule) 50 mg PO Q6H PRN PRN PRN Reason: Mild Anxiety Last Admin: 03/16/19 13:28 Dose: 50 mg Documented by: Ceftriaxone Sodium (Rocephin) 1 gm in 50 mls @ 100 mls/hr IV Q24@2200 GWEN Last Infusion: 03/16/19 23:15 Dose: Infused Documented by: Sodium Chloride () 250 mls @ 15 mls/hr IV .[id number] PRN PRN Reason: Saline Flush Last Infusion: 03/16/19 04:59 Dose: 0 mls/hr Documented by: Methocarbamol (Methocarbamol) 750 mg PO Q6H PRN PRN PRN Reason: Muscle Aches Nutritional Formula (Lactose Free) (Ensure Enlive) 120 ml PO 4X/DAY GWEN Last Admin: 03/17/19 10:03 Dose: Not Given Documented by: Ondansetron HCl (Zofran) 4 mg IV Q8H PRN PRN PRN Reason: NAUSEA/VOMITING Pramipexole Dihydrochloride (Mirapex) 0.25 mg PO Q12H PRN PRN PRN Reason: Restless Legs Last Admin: 03/16/19 13:28 Dose: 0.25 mg Documented by: Sodium Chloride () 10 ml IV UD PRN PRN Reason: SALINE FLUSH Last Admin: 03/16/19 22:44 Dose: 10 ml Documented by: Medical Necessity - Tobacco Use Smoking Status: Current every day smoker Tobacco Use: Cigarettes Assessment/Plan All Active Problems Hepatitis (Acute) 1. Acute hepatitis, unclear etiology-history of hepatitis C. Hep panel pending. Known IV drug user. Right upper quadrant ultrasound unremarkable. Awaiting hep panel, plan for ID referral as outpatient. Repeat CMP in a.m. 2. Acute UTI-positive UA. Urine culture ordered. Continue IV Rocephin. 3. Acute kidney injury, secondary to dehydration from GI losses-resolved. 4. Hyponatremia/hyperkalemia-resolved. 5. Polysubstance abuse-admits to IV heroin and IV methamphetamine. Denies alcohol use. Continue Subutex taper and PRN regimen for somatic complaints. Add on tox screen to prior UA. 6. GERD-continue PPI. 7. Tobacco dependence-encourage cessation. DVT prophylaxis-not indicated, early ambulation. This patient was seen by JAREN Terry under the supervision of Dr. Jordan. <Jarocho Jordan - Last Filed: 03/17/19 12:59> - Physical Exam Vitals/I&O's: Vital Signs Temp Pulse Resp BP Pulse Ox 98 F 83 18 116/68 98 03/17/19 10:04 03/17/19 10:04 03/17/19 10:04 03/17/19 10:04 03/17/19 10:04 Oxygen Delivery Method Room Air Weight: 46.9 kg Body Mass Index (BMI) 19.5 Intake and Output for Last 24 Hours 03/15/19 03/16/19 03/17/19 23:59 23:59 23:59 Intake Total 1999 2691.75 / 2691.75 260 / 260 Balance 1999 2691.75 / 2691.75 260 / 260 Laboratory Results 03/16/19 05:20: Hepatitis A IgM Ab Positive H, Hep Bs Antigen Negative, Hep B Core IgM Ab Negative, Hepatitis C Ab (EIA) >11.0 H 03/17/19 05:40: WBC 7.3, RBC 4.28, Hgb 11.3 L, Hct 35.7 L, MCV 83.4, MCH 26.4 L, MCHC 31.7 L, RDW Std Deviation 45.6 H, RDW Coeff of Owen 15.2 H, Plt Count 264, MPV 10.8, Immature Gran % (Auto) 0.300, Neut % (Auto) 51.3, Lymph % (Auto) 33.4, [place] % (Auto) 12.9 H, Eos % (Auto) 1.8, Baso % (Auto) 0.3, Absolute Neuts (auto) 3.8, Absolute Lymphs (auto) 2.45, Nucleated RBC % 0, Differential Comment SCANNED, Atypical Lymphocytes 2+ 03/17/19 05:40: Sodium 135 L, Potassium 3.9, Chloride 104, Carbon Dioxide 24.0, Anion Gap 7, BUN 10, Creatinine 0.61, Estim Creat Clear Calc 96.21, Est GFR (MDRD) Af Amer 145, Est GFR (MDRD) Non-Af 120, BUN/Creatinine Ratio 16.5, Glucose 80, Calcium 7.8 L, Total Bilirubin 3.90 H, AST 1968 H, ALT 1667 H, Alkaline Phosphatase 312 H, Total Protein 6.8, Albumin 2.4 L, Globulin 4.4 H, Albumin/Globulin Ratio 0.5 L Current Medications Buprenorphine HCl (Buprenorphine Hcl) 2 mg SL Q8H GWEN; Taper Stop: 03/19/19 04:59 Last Admin: 03/17/19 10:03 Dose: 2 mg Documented by: Clonidine (Catapres) 0.1 mg PO Q2H PRN PRN PRN Reason: Hot/Cold Sweats or Anxiety Dextrose (D50w Syringe) 0 gm IV X1 PRN; Protocol PRN Reason: Hypoglycemia Dicyclomine HCl (Bentyl) 20 mg PO Q6H PRN PRN PRN Reason: Abdomnial Discomfort Last Admin: 03/16/19 08:32 Dose: 20 mg Documented by: Glucagon () 1 mg IM .X1 PRN PRN Reason: Hypoglycemia Hydroxyzine HCl (Vistaril Vial) 50 mg IM Q6H PRN PRN PRN Reason: Breakthrough Anxiety Hydroxyzine Pamoate (Vistaril Pamoate Capsule) 50 mg PO Q6H PRN PRN PRN Reason: Mild Anxiety Last Admin: 03/16/19 13:28 Dose: 50 mg Documented by: Ceftriaxone Sodium (Rocephin) 1 gm in 50 mls @ 100 mls/hr IV Q24@2200 GWEN Last Infusion: 03/16/19 23:15 Dose: Infused Documented by: Sodium Chloride () 250 mls @ 15 mls/hr IV .[id number] PRN PRN Reason: Saline Flush Last Infusion: 03/16/19 04:59 Dose: 0 mls/hr Documented by: Methocarbamol (Methocarbamol) 750 mg PO Q6H PRN PRN PRN Reason: Muscle Aches Nutritional Formula (Lactose Free) (Ensure Enlive) 120 ml PO 4X/DAY GWEN Last Admin: 03/17/19 10:03 Dose: Not Given Documented by: Ondansetron HCl (Zofran) 4 mg IV Q8H PRN PRN PRN Reason: NAUSEA/VOMITING Pramipexole Dihydrochloride (Mirapex) 0.25 mg PO Q12H PRN PRN PRN Reason: Restless Legs Last Admin: 03/16/19 13:28 Dose: 0.25 mg Documented by: Sodium Chloride () 10 ml IV UD PRN PRN Reason: SALINE FLUSH Last Admin: 03/16/19 22:44 Dose: 10 ml Documented by: Assessment/Plan This patient was seen in conjunction with JAREN Terry . I have independently interviewed and examined the patient and reviewed pertinent historical, laboratory, and other data. Please refer to JAREN Terry note for details of this patient's presentation, findings, and recommendations. I have reviewed JAREN Terry note and concur with documented findings. In brief, patient is a 33-year-old lady with history of polysubstance abuse who presented with nausea vomiting and diarrhea patient was found to have markedly elevated liver function tests consistent with hepatitis admitted to regular nursing floor for further management after an acute hepatitis panel have been sent 03/17/2019: Patient seen denies any back pain. Less anxious compared to the day prior. Her liver function tests however did worsen. Still awaiting results of acute hepatitis panel. She is tolerated the medical stabilization protocol using Subutex so far Physical Examination: GENERAL: restless HEENT: Atraumatic; EYES;Icteric, NECK; supple, normal thyroid, RESPIRATORY: Diminished to auscultation CARDIOVASCULAR: Regular S1 S2, GI: soft, normoactive bowel sounds, : No Renal angle tenderness; NEURO: Awake; no lateralizing signs. PSYCH; Flat affect Assessment: 1. Acute hepatitis 2. Chronic hep C 3. Acute kidney injury resolved 4. Polysubstance abuse including IV meth and heroin counseled on cessation 5. Hyperkalemia resolved 6. Hyponatremia resolved Recommendations: 1. I have discussed the results of my overview and impressions with the patient 2. Options for management were reviewed Code Visit Inpatient E&M: 77855 Subs Hosp L2
--- NOTE | 2019-03-17 11:22 | NURSING ---
Patient verbalizes understanding of need for urine sample. Patient states she does not need to void at this time, will monitor.
[2019-03-17 11:41] LABS: Hep C Antibodies >11.0 s/co ratio (0.0-0.9)
[2019-03-17 14:22] LABS: Amphetamine Urine VISTA NEGATIVE (<1000 ng/mL); Barbiturate Urine VISTA NEGATIVE (< 200 ng/mL); Benzodiazepine Urine VISTA NEGATIVE (< 200 ng/mL); Cocaine Urine VISTA NEGATIVE (< 300 ng/mL); Ecstacy Urine VISTA NEGATIVE (< 500 ng/mL); Methadone Urine VISTA NEGATIVE (< 300 ng/mL); PCP Urine VISTA NEGATIVE (< 25 ng/mL); THC Urine VISTA NEGATIVE (< 50 ng/mL); Vista UDS pH Range 6
--- NOTE | 2019-03-17 16:08 | CHAPLAIN ---
Type of Pastoral Visit _x__ Initial Visit ___ Follow-up Visit ___ On-call Visit ___ General Patient Visit ___ Spiritual Assessment ___ Family Conference ___ Bereavement ___ Rapid Response ___ Code Blue ___ Other (describe below) Pastoral Care Referral From _x__ Patient ___ Family ___ Nurse ___ Physician ___ Senior Analytical Chemist ___ Lining Closer ___ Other (describe below) Sacrament/Intervention ___ Active listening ___ Anointing ___ Caodaism ___ Bereavement ___ Communion ___ Thuy exploration ___ ___ Life review _x__ Prayer ___ Reconciliation ___ Sacrament of Sick _x__ Supportive presence ___ Wedding ___ Other (describe below) Pastoral Comments
[2019-03-17 16:24] VITALS: BP 101/65; PULSE 70; RESP 16; TEMP 36.6; O2SAT 95
[2019-03-17] MEDS: Ceftriaxone 1 GM/50 ML BAG IV (20:49)
[2019-03-17] MEDS: 0.9% Saline Lock 10 ML Syringe IV (20:50)
--- NOTE | 2019-03-17 20:59 | NURSING ---
pt expressed anger about where her boyfriend has been all day and why he didnt call her, boyfriend had been in room with another male and is now in kitchen area getting food. asked pt if she would like her boyfriend to leave pt states no. finished assessment and boyfriend and other male returned to room, pt and boyfriend are arguing and swearing loudly asked them to quiet down or visitors would need to leave. security and zinc furnace charger notified.
[2019-03-17 21:02] VITALS: BP 116/58; PULSE 77; RESP 16; TEMP 36.6; O2SAT 96
--- NOTE | 2019-03-17 23:40 | NURSING ---
pt sleeping no further incidents of arguing with boyfriend
[2019-03-18] MEDS: Buprenorphine HCl 2 MG TAB.SUBL SL (04:31)
[2019-03-18 04:33] VITALS: BP 100/55; PULSE 74; RESP 16; TEMP 36.8; O2SAT 94
[2019-03-18 06:55] LABS: ALB/GLOB Ratio 0.5 RATIO (0.9-2.4); AST(SGOT) 1104 U/L (15-37); Alanine Aminotransfer ALT/SGPT 1253 U/L (13-56); Albumin, Serum 2.3 g/dL (3.2-5.0); Alkaline Phosphatase 312 U/L (45-117); Anion Gap 2 (5-15); BUN 9 mg/dL (7-18); BUN/Creat Ratio 15.1 RATIO (10-20); Calcium,Total 8.1 mg/dL (8.5-10.1); Chloride 103 mmol/L (98-107); EST Glomerular Filtration Rate 122 mL/min (>60); Est Glom Filt Rate - Afr Amer 147 mL/min (>60); Estimated Creatinine Clearance 97.82 ml/min; Globulin 4.5 g/dL (2.2-4.2); Glucose 100 mg/dL (74-106); Potassium 3.5 mmol/L (3.5-5.1); Protein, Total 6.8 g/dL (6.4-8.2); Sodium Level 137 mmol/L (136-145)
[2019-03-18 07:53] VITALS: BP 115/67; PULSE 82; RESP 18; TEMP 36.6; O2SAT 99
--- NOTE | 2019-03-18 09:57 | DCINST_ITS ---
- Discharge Diagnoses Current Active Problems: Current Active and Chronic Problems Acute hepatitis A Chronic hepatitis C Polysubstance abuse You will use the following diet at home:: No restrictions Discharge Activity: Return to Normal Activity Call your doctor if you observe: Fever of 101 or Higher, - - Increased nausea, vomiting. Allergies/Adverse Reactions: Allergies No Known Allergies Allergy (Verified 03/15/19 19:05) Medications to take at Discharge NK 02/18/19 Primary Care Physician: Care Physician,No Primary [Primary Care Provider] - Please follow up with your Primary Care Physician in: 1 Week Test Results: Test results from this visit will be discussed in further detail at your follow- up appointment, if applicable. [facility]2 We[facility] to establish Proposed Discharge Date: 03/18/19
--- NOTE | 2019-03-18 10:00 | DS.PCM_ITS ---
<Aruna García - Last Filed: 03/18/19 10:08> Discharge Date and Diagnosis Date of Admission: 03/15/19 Date of Discharge: 03/18/19 - Primary Discharge Diagnosis Active and Suspected Problems 1. Acute hepatitis A 2. Chronic hepatitis C 3. Acute UTI 4. Acute kidney injury, resolved 5. Hyponatremia/hyperkalemia, resolved 6. Polysubstance abuse 7. GERD 8. Tobacco dependence - Secondary Discharge Diagnosis Chronic Problems History of hepatitis C (Chronic) History of heroin use (Chronic) History of methamphetamine use (Chronic) Hospital Course and Treatment Imaging Results: Diagnostic Data Gallbladder Ultrasound 03/15/19 21:19 IMPRESSION: Normal right upper quadrant ultrasound examination. Electronically Signed: Anh Mcmullen MD at 22:16 EDT Tel , Service support , Operations: None Procedures: None Summary of Care Provided: The patient is a 33 year old F admitted 03/15/2019 due to nausea, vomiting and diarrhea. 1. Acute hepatitis A, chronic hepatitis C. Known IV drug user. Right upper quadrant ultrasound unremarkable. Liver enzymes trending down. Discussed with patient she may receive treatment for hepatitis C if she continues sobriety for 6 months. Follow-up with Dr. jones, infectious disease at [facility] in 1-2 Weeks to establish. Follow-up with primary care provider 1 week. 2. Acute UTI-positive UA. Patient received IV Rocephin x4 doses. 3. Acute kidney injury, secondary to dehydration from GI losses-resolved. 4. Hyponatremia/hyperkalemia-resolved. 5. Polysubstance abuse-admits to IV heroin and IV methamphetamine. Denies alcohol use. Patient received Subutex taper and PRN regimen for somatic complaints. Recommend outpatient counseling/follow-up. 6. GERD-resolved. 7. Tobacco dependence-encourage cessation. General: Oriented x3, Cooperative, No apparent distress HEENT: Atraumatic, PERRLA, EOMI, Normocephalic Oral: Moist Mucosa Neck: Supple, No JVD, Negative Carotid Bruits Lungs: Clear to auscultation, Normal air movement Cardiovascular: Regular rate, No murmurs Abdomen: Bowel Sounds Present, Soft, Non Tender, Non-Distended Extremities: No clubbing, No cyanosis, No edema, Capillary Refill Less than 3 Seconds Skin: - - Facial/nasal abrasions, scabbed. Musculoskeletal: No Tenderness to Palpation of Joints or Extremities Neurological: Cranial nerves II-XII grossly intact, Neuro grossly intact Psych/Mental Status: Flat Affect Patient seen and examined prior to discharge. Physical assessment as noted above. Patient is stable for discharge with follow up recommendations as noted above. This patient was seen by JAREN Terry under the supervision of Dr. Jordan. - Physical Exam Vitals/I&O's: Vital Signs Temp Pulse Resp BP Pulse Ox 97.9 F 82 18 115/67 99 03/18/19 07:53 03/18/19 07:53 03/18/19 07:53 03/18/19 07:53 03/18/19 07:53 Oxygen Delivery Method Room Air Weight: 103 lb 6.349 oz Body Mass Index (BMI) 19.5 Intake and Output for Last 24 Hours 03/16/19 03/17/19 03/18/19 23:59 23:59 23:59 Intake Total 2691.75 / 2691.75 978.25 / 978.25 Balance 2691.75 / 2691.75 978.25 / 978.25 Laboratory Results 03/16/19 05:20: Hepatitis A IgM Ab Positive H, Hep Bs Antigen Negative, Hep B Core IgM Ab Negative, Hepatitis C Ab (EIA) >11.0 H 03/17/19 13:47: Urine Opiates Screen NEGATIVE, Urine Methadone Screen NEGATIVE, Ur Barbiturates Screen NEGATIVE, Ur Phencyclidine Scrn NEGATIVE, Ur Amphetamines Screen NEGATIVE, U Methamphetamin-MDMA NEGATIVE, U Benzodiazepines Scrn NEGATIVE, Urine Cocaine Screen NEGATIVE, U Cannabinoids Screen NEGATIVE, Ur Drug Screen Comment 03/18/19 06:00: Sodium 137, Potassium 3.5, Chloride 103, Carbon Dioxide 32.0, Anion Gap 2 L, BUN 9, Creatinine 0.60, Estim Creat Clear Calc 97.82, Est GFR (MDRD) Af Amer 147, Est GFR (MDRD) Non-Af 122, BUN/Creatinine Ratio 15.1, Glucose 100, Calcium 8.1 L, Total Bilirubin 2.90 H, AST 1104 H, ALT 1253 H, Alkaline Phosphatase 312 H, Total Protein 6.8, Albumin 2.3 L, Globulin 4.5 H, Albumin/Globulin Ratio 0.5 L Current Medications Buprenorphine HCl (Buprenorphine Hcl) 2 mg SL Q12H GWEN; Taper Stop: 03/19/19 04:59 Last Admin: 03/18/19 04:31 Dose: 2 mg Documented by: Clonidine (Catapres) 0.1 mg PO Q2H PRN PRN PRN Reason: Hot/Cold Sweats or Anxiety Dextrose (D50w Syringe) 0 gm IV X1 PRN; Protocol PRN Reason: Hypoglycemia Dicyclomine HCl (Bentyl) 20 mg PO Q6H PRN PRN PRN Reason: Abdomnial Discomfort Last Admin: 03/16/19 08:32 Dose: 20 mg Documented by: Glucagon () 1 mg IM .X1 PRN PRN Reason: Hypoglycemia Hydroxyzine HCl (Vistaril Vial) 50 mg IM Q6H PRN PRN PRN Reason: Breakthrough Anxiety Hydroxyzine Pamoate (Vistaril Pamoate Capsule) 50 mg PO Q6H PRN PRN PRN Reason: Mild Anxiety Last Admin: 03/16/19 13:28 Dose: 50 mg Documented by: Ceftriaxone Sodium (Rocephin) 1 gm in 50 mls @ 100 mls/hr IV Q24@2200 GWEN Last Infusion: 03/17/19 21:19 Dose: Infused Documented by: Sodium Chloride () 250 mls @ 15 mls/hr IV .[id number] PRN PRN Reason: Saline Flush Last Infusion: 03/17/19 22:32 Dose: 0 mls/hr Documented by: Methocarbamol (Methocarbamol) 750 mg PO Q6H PRN PRN PRN Reason: Muscle Aches Nutritional Formula (Lactose Free) (Ensure Enlive) 120 ml PO 4X/DAY [facility] Last Admin: 03/17/19 21:17 Dose: Not Given Documented by: Ondansetron HCl (Zofran) 4 mg IV Q8H PRN PRN PRN Reason: NAUSEA/VOMITING Pramipexole Dihydrochloride (Mirapex) 0.25 mg PO Q12H PRN PRN PRN Reason: Restless Legs Last Admin: 03/16/19 13:28 Dose: 0.25 mg Documented by: Sodium Chloride () 10 ml IV UD PRN PRN Reason: SALINE FLUSH Last Admin: 03/17/19 20:50 Dose: 10 ml Documented by: Discharge Diet: No Restrictions Discharge Activity: Return to Normal Activity Call your doctor if you observe: Fever of 101 or Higher, - - Increased nausea, vomiting. Home Medications: Medications to take at Discharge NK 02/18/19 Primary Care Physician: Care Physician,No Primary [Primary Care Provider] - Please follow up with your Primary Care Physician in: 1 Week Please Follow Up With: Melinda Jones MD - [facility] When: 1-2 Weeks to establish Disposition: Home Minutes spent on discharge:: 35 Patient Condition:: Stable Medical Necessity - Tobacco Use Smoking Status: Current every day smoker Tobacco Use: Cigarettes Meaningful Use Info Meaningful Use Diagnoses (Choose all that apply): None applicable <Jarocho Jordan - Last Filed: 03/18/19 13:04> Discharge Date and Diagnosis - Secondary Discharge Diagnosis Chronic Problems History of hepatitis C (Chronic) History of heroin use (Chronic) History of methamphetamine use (Chronic) Hospital Course and Treatment Summary of Care Provided: This patient was seen in conjunction with JAREN Terry . I have independently interviewed and examined the patient and reviewed pertinent histor ical, laboratory, and other data. Please refer to JAREN Terry note for details of this patient's presentation, findings, and recommendations. I have reviewed JAREN Terry note and concur with documented findings. In brief, patient is a 33-year-old lady with history of polysubstance abuse who presented with nausea vomiting and diarrhea patient was found to have markedly elevated liver function tests consistent with hepatitis admitted to regular nursing floor for further management after an acute hepatitis panel have been sent Assessment: 1. Acute hepatitis A 2. Chronic hep C 3. Acute kidney injury resolved 4. Polysubstance abuse including IV meth and heroin counseled on cessation 5. Hyperkalemia resolved 6. Hyponatremia resolved Hospital course: As documented above - Physical Exam Vitals/I&O's: Vital Signs Temp Pulse Resp BP Pulse Ox 97.9 F 82 18 115/67 99 03/18/19 10:45 03/18/19 10:45 03/18/19 10:45 03/18/19 10:45 03/18/19 10:45 Oxygen Delivery Method Room Air Weight: 46.9 kg Body Mass Index (BMI) 19.5 Intake and Output for Last 24 Hours 03/16/19 03/17/19 03/18/19 23:59 23:59 23:59 Intake Total 2691.75 / 2691.75 978.25 / 978.25 Balance 2691.75 / 2691.75 978.25 / 978.25 Laboratory Results 03/17/19 13:47: Urine Opiates Screen NEGATIVE, Urine Methadone Screen NEGATIVE, Ur Barbiturates Screen NEGATIVE, Ur Phencyclidine Scrn NEGATIVE, Ur Amphetamines Screen NEGATIVE, U Methamphetamin-MDMA NEGATIVE, U Benzodiazepines Scrn NEGAT KORI, Urine Cocaine Screen NEGATIVE, U Cannabinoids Screen NEGATIVE, Ur Drug Screen Comment 03/18/19 06:00: Sodium 137, Potassium 3.5, Chloride 103, Carbon Dioxide 32.0, Anion Gap 2 L, BUN 9, Creatinine 0.60, Estim Creat Clear Calc 97.82, Est GFR (MDRD) Af Amer 147, Est GFR (MDRD) Non-Af 122, BUN/Creatinine Ratio 15.1, Glucose 100, Calcium 8.1 L, Total Bilirubin 2.90 H, AST 1104 H, ALT 1253 H, Alkaline Phosphatase 312 H, Total Protein 6.8, Albumin 2.3 L, Globulin 4.5 H, Albumin/Globulin Ratio 0.5 L Code Visit Inpatient E&M: 91531 Disch Hosp
[2019-03-18 10:45] VITALS: BP 115/67; PULSE 82; RESP 18; TEMP 36.6; O2SAT 99
--- NOTE | 2019-03-18 11:05 | CASEMGMT ---
JULIEN faxed a letter to Bakari at [facility] per patient's request. The letter indicated when patient came to [facility] and her d/c date. RN passed this message along to JULIEN. Nataliia HOWE MSW
== END 2019-03-18 10:38 | disposition home or self-care (01) ==
LOC: ED 19:29 → PCU 23:44
PROVIDERS: Nurse Practitioner Family; Physician Assistant; Admitting Provider Hospitalist; Emergency Provider Emergency Medicine; Visit Provider Internal Medicine
DX: B15.9 Hepatitis A without hepatic coma (principal); N17.9 Acute kidney failure, unspecified; E87.5 Hyperkalemia; E87.1 Hypo-osmolality and hyponatremia; F11.10 Opioid abuse, uncomplicated; F15.10 Other stimulant abuse, uncomplicated; F17.210 Nicotine dependence, cigarettes, uncomplicated; B18.2 Chronic viral hepatitis C; K21.9 Gastro-esophageal reflux disease without esophagitis; N39.0 Urinary tract infection, site not specified
CPT/HCPCS: 36415; 76705; 80053; 80074; 80307; 80329; 81001; 83690; 84703; 85025; 85610; 87086; 87088; 99284; 99406; J7030; J7050; A4216; G0480; J2405

== ENCOUNTER 2019-04-20 10:47 | Emergency (ER) | payer MEDICAID, SELFPAY ==
[2019-04-20 10:48] VITALS: BP 135/73; PULSE 134; RESP 16; TEMP 36.7; O2SAT 96; BMI 21.6
--- NOTE | 2019-04-20 10:50 | ED.DCSUM_ITS ---
- ER Visit Summary Date of Service: 04/20/19 Chief Complaint: Overdose History of Present Illness: The patient is a 33 F who was brought in by EMS after an apparent opioid overdose. She is accompanied by her significant other who is also a patient. She was noted to have decreased level of consciousness, pinpoint pupils. She was treated with Narcan 2 mg intranasal. She woke up and her symptoms improved. No other complaints. Physical Examination: Vitals reviewed. Patient has multiple abrasions to her face and arms. Head and neck atraumatic. Heart regular. Lungs clear. Abdomen soft. Extremities otherwise unremarkable. Test Results: None indicated Emergency Department Course and Treatment: Patient was placed on a equipment monitor phototypesetting. Will monitor for rebound symptoms. After observation, the patient will be discharged home. Treatment Plan: As above Disposition: Discharge Impression: 1. Opioid overdose This note was generated with [employer] dictation software. It may contain incorrect words, spelling, and punctuation that were not noted in review of the chart prior to signing ED Disposition - Plan for ED Patient: Referrals: Care Physician,No Primary [Primary Care Provider] -
--- NOTE | 2019-04-20 10:53 | ED.DEP ---
ED Disposition - Plan for ED Patient: Instructions: OVERDOSE, Opiate Referrals: [facility] [NON-STAFF] -
[2019-04-20 11:55] VITALS: BP 128/72; PULSE 124; RESP 18; O2SAT 97
== END 2019-04-20 11:56 | disposition home or self-care (01) ==
LOC: ED 11:44
PROVIDERS: Emergency Provider Emergency Medicine
DX: T40.2X1A Poisoning by other opioids, accidental (unintentional), initial encounter (principal); R41.82 Altered mental status, unspecified; Y92.9 Unspecified place or not applicable; F11.90 Opioid use, unspecified, uncomplicated
CPT/HCPCS: 99285

== ENCOUNTER 2019-04-24 22:09 | Emergency (ER) | payer MEDICAID, SELFPAY ==
[2019-04-24 22:10] VITALS: BP 126/80; PULSE 136; RESP 18; TEMP 36.7; O2SAT 94; BMI 22.6
[2019-04-24 22:15] VITALS: RESP 18
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
[2019-04-24 22:58] VITALS: PULSE 124; RESP 16; O2SAT 96
[2019-04-25] MEDS: Smz/Tmp Ds Tablet 1 TABLET PO (00:06)
[2019-04-25 00:07] VITALS: PULSE 118; RESP 16; O2SAT 98
== END 2019-04-25 00:10 | disposition home or self-care (01) ==
PROVIDERS: Emergency Provider Emergency Medicine
DX: T40.1X1A Poisoning by heroin, accidental (unintentional), initial encounter (principal); F11.90 Opioid use, unspecified, uncomplicated; Y92.511 Restaurant or cafe as the place of occurrence of the external cause; L02.412 Cutaneous abscess of left axilla; B18.2 Chronic viral hepatitis C; F15.90 Other stimulant use, unspecified, uncomplicated; F17.200 Nicotine dependence, unspecified, uncomplicated
CPT/HCPCS: 10060; 99284

== ENCOUNTER 2019-08-02 03:48 | Emergency (ER) | payer MEDICAID, SELFPAY ==
[2019-08-02 03:55] VITALS: BP 136/84; PULSE 72; RESP 18; TEMP 36.8; O2SAT 95; BMI 20.3
[2019-08-02 04:36] LABS: Absolute Lymphocyte Count 2.75 X10^3/uL (0.83-4.51); Absolute Neutrophil Count 8.7 X10^3/uL (2.0-7.7); Basophil# 0.06 X10^3/uL; Basophil% 0.5 % (0-1); Eosinophil# 0.06 X10^3/uL; Eosinophils% 0.5 % (0-5); Hemoglobin 9.9 g/dL (12.0-15.0); Lymphocyte # 2.75 X10^3/ul (4.0); Lymphocyte % 21.9 % (19-41); Mean Corp Hgb Conc 30.9 g/dL (32-36); Mean Corpuscular Hgb 24.9 pg (27.0-32.0); Mean Corpuscular Volume 80.6 fL (81-99); Mean Platelet Vol. 9.1 fl (6.2-12.0); Monocyte# 0.89 X10^3/uL; Monocyte% 7.1 % (0-10); NRBC Flagged by Analyzer 0 % (0-5); Neutrophil # 8.73 X10^3/uL (2.7-7.7); Neutrophil % 69.6 % (47-70); Platelet Count 364 K/mm3 (150-450); RBC Distribution Width CV 14.4 % (11.6-14.6); RBC Distribution Width SD 41.8 fl (35.1-43.9); Red Blood Count 3.97 M/mm3 (4.2-5.4); White Blood Count 12.5 K/mm3 (4.4-11.0)
[2019-08-02 04:48] LABS: Internal QC Validated? YES +Cl - CLEAR BKGD; Pregnancy, Serum, hCG Quali. NEGATIVE Negative
[2019-08-02 04:51] LABS: Anion Gap 7 (5-15); BUN 16 mg/dL (7-18); BUN/Creat Ratio 18.8 RATIO (10-20); Calcium,Total 8.6 mg/dL (8.5-10.1); Chloride 108 mmol/L (98-107); Creatinine, Serum 0.85 mg/dL (0.55-1.02); EST Glomerular Filtration Rate 81 mL/min (>60); Est Glom Filt Rate - Afr Amer 98 mL/min (>60); Estimated Creatinine Clearance 70.37 ml/min; Glucose 90 mg/dL (74-106); Sodium Level 139 mmol/L (136-145)
[2019-08-02 04:55] LABS: Alcohol, Blood (Medical)-Serum < 3.0 mg/dL
[2019-08-02 05:00] LABS: CPK Total, Creatine Kinase 594 U/L (26-192)
[2019-08-02 05:09] LABS: Amphetamine Urine VISTA POSITIVE (<1000 ng/mL); Barbiturate Urine VISTA NEGATIVE (< 200 ng/mL); Benzodiazepine Urine VISTA NEGATIVE (< 200 ng/mL); Cocaine Urine VISTA NEGATIVE (< 300 ng/mL); Ecstacy Urine VISTA POSITIVE (< 500 ng/mL); Methadone Urine VISTA NEGATIVE (< 300 ng/mL); PCP Urine VISTA NEGATIVE (< 25 ng/mL); THC Urine VISTA NEGATIVE (< 50 ng/mL); Vista UDS pH Range 5
--- NOTE | 2019-08-02 05:17 | ED.RN ---
CALLED CRISIS PER REQUEST OF TI [place] [employer]
--- NOTE | 2019-08-02 05:18 | ED.DCSUM_ITS ---
History of Present Illness Chief Complaint: Substance Abuse Narrative: Patient presenting because I want to talk to crisis. Patient has a underlying history of polysubstance abuse. Patient reports that she last used methamphetamine at 10 AM, but did use some stimulants at 10 PM that she states are like water. Patient denies being suicidal homicidal or hallucinating but with much coaching is able to say that she wants to talk to crisis because she was kicked out of her house because my mom thinks I am crazy additional history was really unable to be obtained as the patient was speaking with pressured speech and flight of ideas. Past Medical History - Allergies and Home Meds Allergies/Adverse Reactions: Allergies No Known Allergies Allergy (Verified 08/02/19 03:50) Primary Care Physician: Care Physician,No Primary [Primary Care Provider] - Past Medical History: - - Polysubstance abuse Surgical History: - - Right ear hematoma drained 3 days ago. Lives: With Family Smoking Status: Current every day smoker Alcohol: None Drugs: - - Methamphetamine - Family History Maternal Family History: Reports: Cancer - Lung cancer, Diabetes, Heart Disease, Hypertension, Renal Disease Paternal Family History: Reports: Cancer - colon; and lung, Diabetes, Heart Disease Review of Systems ROS: Unable to Obtain Physical Exam Vital Signs/Narrative: Vital Signs Temp Pulse Resp BP Pulse Ox 08/02/19 03:55 98.3 F 72 18 136/84 H 95 General: Unkempt Head: Normocephalic, Atraumatic Eyes: Perrl, EOMI, - - Dilated pupils ENT: - - Dry cracked lips Neck: Supple Cardiovascular: Regular rate, Regular rhythm, No murmurs Respiratory: No distress, CTA bilaterally, Chest nontender Abdomen: Soft, Nontender, Nondistended, Normal bowel sounds Extremities: Nontender, No Edema Skin: Normal color Neurological: Alert, Normal Strength, Normal Sensation Psych: Pressured Speech, Flight of Ideas, Incoherent thoughts, Poor Insight, Limited Judgement. Negative for: Suicidal thoughts, Homicidal thoughts, Hallucinations Diagnostic/Tx/Re-eval Laboratory Data 08/02/19 08/02/19 08/02/19 04:30 04:30 04:30 WBC 12.5 H RBC 3.97 L Hgb 9.9 L Hct 32.0 L MCV 80.6 L MCH 24.9 L MCHC 30.9 L RDW Std Deviation 41.8 RDW Coeff of Owen 14.4 Plt Count 364 MPV 9.1 Immature Gran % (Auto) 0.400 Neut % (Auto) 69.6 Lymph % (Auto) 21.9 Mitchell % (Auto) 7.1 Eos % (Auto) 0.5 Baso % (Auto) 0.5 Absolute Neuts (auto) 8.7 H Absolute Lymphs (auto) 2.75 Nucleated RBC % 0 Sodium 139 Potassium 4.0 Chloride 108 H Carbon Dioxide 24.0 Anion Gap 7 BUN 16 Creatinine 0.85 Estim Creat Clear Calc 70.37 Est GFR (MDRD) Af Amer 98 Est GFR (MDRD) Non-Af 81 BUN/Creatinine Ratio 18.8 Glucose 90 Calcium 8.6 Total Creatine Kinase Serum , Qual Urine Opiates Screen Urine Methadone Screen Ur Barbiturates Screen Ur Phencyclidine Scrn Ur Amphetamines Screen U Methamphetamin-MDMA U Benzodiazepines Scrn Urine Cocaine Screen U Cannabinoids Screen Ur Drug Screen Comment Ethyl Alcohol < 3.0 08/02/19 08/02/19 08/02/19 04:30 04:30 04:45 WBC RBC Hgb Hct MCV MCH MCHC RDW Std Deviation RDW Coeff of Owen Plt Count MPV Immature Gran % (Auto) Neut % (Auto) Lymph % (Auto) Mitchell % (Auto) Eos % (Auto) Baso % (Auto) Absolute Neuts (auto) Absolute Lymphs (auto) Nucleated RBC % Sodium Potassium Chloride Carbon Dioxide Anion Gap BUN Creatinine Estim Creat Clear Calc Est GFR (MDRD) Af Amer Est GFR (MDRD) Non-Af BUN/Creatinine Ratio Glucose Calcium Total Creatine Kinase 594 H Serum , Qual NEGATIVE Urine Opiates Screen NEGATIVE Urine Methadone Screen NEGATIVE Ur Barbiturates Screen NEGATIVE Ur Phencyclidine Scrn NEGATIVE Ur Amphetamines Screen POSITIVE H U Methamphetamin-MDMA POSITIVE H U Benzodiazepines Scrn NEGATIVE Urine Cocaine Screen NEGATIVE U Cannabinoids Screen NEGATIVE Ur Drug Screen Comment Ethyl Alcohol Patient presented for evaluation for psych. Patient is very clearly hyper stimulated, either potentially from a manic episode or from drugs. Screening labs were obtained, patient's creatinine kinase was found to be indeterminately elevated I do not feel that this is a presentation of rhabdomyolysis secondary to stimulant use. Patient's toxicology screen was positive for amphetamines and MDMA. Crisis was contacted for evaluation. Crisis evaluated the patient, and she was actually resting much more comfortably and no longer had pressured speech. She likely is no longer intoxicated by stimulants at this point. She is not suicidal homicidal hallucinating or having any signs of bipolar or navarro. Patient was recommended to discontinue use of methamphetamine. She was discharged in improved condition. ED Disposition - Plan for ED Patient: Disposition: Home or Assisted Living Diagnosis: Methamphetamine abuse Referrals: Counseling,Center [GROUP OF PHYSICIANS] - As soon as possible
--- NOTE | 2019-08-02 06:25 | ED.RN ---
CRISIS ON SITE
[2019-08-02 06:46] VITALS: RESP 16
--- NOTE | 2019-08-02 06:54 | ED.DEP ---
ED Disposition - Plan for ED Patient: Disposition: Home or Assisted Living Diagnosis: Methamphetamine abuse Instructions: Understanding Methamphetamine Abuse and Addiction Referrals: Counseling,Center [GROUP OF PHYSICIANS] - As soon as possible
== END 2019-08-02 10:38 | disposition home or self-care (01) ==
PROVIDERS: Emergency Provider Emergency Medicine
DX: F15.10 Other stimulant abuse, uncomplicated (principal); Z72.0 Tobacco use
CPT/HCPCS: 36415; 80048; 80307; 80320; 82550; 84703; 85025; 99285; G0480

== ENCOUNTER 2019-08-03 19:02 | Emergency (ER) | payer MEDICAID, SELFPAY ==
[2019-08-02 03:55] VITALS: BMI 20.3
[2019-08-03 19:02] VITALS: BP 116/72; PULSE 103; RESP 20; TEMP 37.2; O2SAT 95; BMI 20.3
--- NOTE | 2019-08-03 20:30 | ED.RN ---
PT REPORTS THAT SHE DOES NOT WANT TO WAIT TO BE SEEN. LWBS AT 1925. AMBULATES OUT OF DEPT WITH BOYFRIEND.
== END 2019-08-03 19:25 | disposition left against medical advice (07) ==
LOC: ED 19:44
PROVIDERS: Emergency Provider Emergency Medicine
DX: Z53.21 Procedure and treatment not carried out due to patient leaving prior to being seen by health care provider (principal)
CPT/HCPCS: 99281

== ENCOUNTER 2019-10-05 18:49 | Emergency (ER) | payer MEDICAID, SELFPAY ==
[2019-10-05 18:50] VITALS: BP 131/113; PULSE 134; RESP 20; TEMP 38.2; O2SAT 92; BMI 20.3
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
[2019-10-05] MEDS: 0.9% Normal Saline 1,000 ML 150 ML IV (19:23)
[2019-10-05] MEDS: Acetaminophen 325 MG Tablet 650 MG PO (19:23)
[2019-10-05 19:35] LABS: Absolute Lymphocyte Count 1.48 X10^3/uL (0.83-4.51); Absolute Neutrophil Count 11.5 X10^3/uL (2.0-7.7); Basophil# 0.03 X10^3/uL; Basophil% 0.2 % (0-1); Eosinophil# 0.21 X10^3/uL; Eosinophils% 1.5 % (0-5); Hematocrit 33.5 % (37-47); Hemoglobin 10.4 g/dL (12.0-15.0); Lymphocyte # 1.48 X10^3/ul (4.0); Lymphocyte % 10.3 % (19-41); Mean Corpuscular Hgb 25.1 pg (27.0-32.0); Mean Corpuscular Volume 80.9 fL (81-99); Mean Platelet Vol. 9.2 fl (6.2-12.0); Monocyte% 6.3 % (0-10); NRBC Flagged by Analyzer 0 % (0-5); Neutrophil # 11.53 X10^3/uL (2.7-7.7); Neutrophil % 80.3 % (47-70); Platelet Count 398 K/mm3 (150-450); RBC Distribution Width CV 15.4 % (11.6-14.6); RBC Distribution Width SD 44.6 fl (35.1-43.9); Red Blood Count 4.14 M/mm3 (4.2-5.4); White Blood Count 14.4 K/mm3 (4.4-11.0)
[2019-10-05 19:51] LABS: Mucous, Urine 0 SEEN /hpf (<or=2+)
[2019-10-05 20:00] LABS: Color, Urine Yellow (Yellow); Glucose, Dipstick Normal (Normal); Ketone-Dipstick 5 mg/dl (Negative); Leukocyte Esterase-Dipstick 25 /ul (Negative); Nitrite-Dipstick Negative (Negative); Occult Blood-Urine 150 /ul (Negative); Protein-Dipstick 100 mg/dl (Negative); Urine Bilirubin Dipstick Negative (Negative); Urine Clarity Sl. Cloudy (Clear); Urine Urobilinogen Normal (Normal)
[2019-10-05 20:00] LABS: Alcohol, Blood (Medical)-Serum < 3.0 mg/dL
[2019-10-05 20:01] VITALS: BP 102/70; PULSE 117; RESP 16; TEMP 36.8; O2SAT 100
[2019-10-05 20:01] LABS: Internal QC Validated? YES +Cl - CLEAR BKGD; Pregnancy, Serum, hCG Quali. NEGATIVE Negative
[2019-10-05 20:06] LABS: AST(SGOT) 93 U/L (15-37); Alanine Aminotransfer ALT/SGPT 99 U/L (13-56); Albumin, Serum 3.5 g/dL (3.2-5.0); Alkaline Phosphatase 117 U/L (45-117); Anion Gap 9 (5-15); BUN 15 mg/dL (7-18); BUN/Creat Ratio 13.8 RATIO (10-20); Bilirubin, Direct 0.11 mg/dL (0.00-0.30); Calcium,Total 8.6 mg/dL (8.5-10.1); Chloride 107 mmol/L (98-107); Creatinine, Serum 1.09 mg/dL (0.55-1.02); EST Glomerular Filtration Rate 61 mL/min (>60); Est Glom Filt Rate - Afr Amer 73 mL/min (>60); Estimated Creatinine Clearance 54.36 ml/min; Globulin 4.4 g/dL (2.2-4.2); Glucose 92 mg/dL (74-106); Protein, Total 7.9 g/dL (6.4-8.2); Sodium Level 140 mmol/L (136-145)
[2019-10-05 20:15] LABS: Red Blood Cells-Urine 5-10 SEEN /hpf (0-5)
[2019-10-05 20:16] LABS: Bacteria RARE /hpf (None Seen); Squamous Epithelial Cells - UA 0-5 SEEN /hpf (5-10); White Blood Cells 0-5 SEEN /hpf (0-5)
[2019-10-05 20:18] LABS: Amphetamine Urine VISTA POSITIVE (<1000 ng/mL); Barbiturate Urine VISTA NEGATIVE (< 200 ng/mL); Benzodiazepine Urine VISTA NEGATIVE (< 200 ng/mL); Cocaine Urine VISTA NEGATIVE (< 300 ng/mL); Ecstacy Urine VISTA POSITIVE (< 500 ng/mL); Methadone Urine VISTA NEGATIVE (< 300 ng/mL); PCP Urine VISTA NEGATIVE (< 25 ng/mL); THC Urine VISTA NEGATIVE (< 50 ng/mL); Vista UDS pH Range 6
[2019-10-05 20:41] VITALS: BP 101/68; PULSE 117; RESP 16; O2SAT 99
== END 2019-10-05 20:59 | disposition home or self-care (01) ==
PROVIDERS: Emergency Provider Emergency Medicine
DX: F15.10 Other stimulant abuse, uncomplicated (principal)
CPT/HCPCS: 70450; 80048; 80076; 80307; 80320; 81001; 84703; 85025; 96360; 99285; J7030; A4216; G0480

== ENCOUNTER 2019-10-17 11:09 | Emergency (ER) | payer MEDICAID, SELFPAY ==
[2019-10-17 11:10] VITALS: BP 143/102; PULSE 133; RESP 19; TEMP 38; O2SAT 95; BMI 19.4
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
[2019-10-17] MEDS: Acetaminophen 500 MG Tablet 1000 MG PO (11:38)
--- NOTE | 2019-10-17 12:00 | RAD_ITS ---
STUDY: X-RAY CHEST REASON FOR EXAM: Female, 34 years old. COMPLAINS OF DRY COUGH AND SORE THROAT FOR THE LAST COUPLE OF DAYS. TECHNIQUE: Single AP portable upright view of the chest. COMPARISON: Portable AP upright chest x-ray September 17, 2016. FINDINGS: The lungs are clear and expanded. There is no demonstrated pleural abnormality. Normal size heart. Normal mediastinum and elijah. Normal visualized pulmonary arteries. Normal visualized aortic arch and descending thoracic aorta. Normal visualized thoracic spine. Normal visualized ribs, clavicles, and shoulders. There is no demonstrated abnormality of the visualized soft tissue structures of the upper abdomen. RAD/Chest 1 View (Portable) IMPRESSION: Normal x-ray examination of the chest, unchanged. Electronically Signed: Nathaniel Garner MD at 13:22 EDT , Service support ,
[2019-10-17 12:06] LABS: Red Blood Cells-Urine 0 SEEN /hpf (0-5)
[2019-10-17 12:24] LABS: Color, Urine Yellow (Yellow); Glucose, Dipstick Normal (Normal); Ketone-Dipstick Negative (Negative); Leukocyte Esterase-Dipstick 100 /ul (Negative); Nitrite-Dipstick Negative (Negative); Occult Blood-Urine 25 /ul (Negative); Protein-Dipstick 100 mg/dl (Negative); Specific Gravity, Urine 1.025 (1.002-1.030); Urine Bilirubin Dipstick Negative (Negative); Urine Clarity Cloudy (Clear); Urine Urobilinogen Normal (Normal)
[2019-10-17 12:32] LABS: Bacteria 1+ /hpf (None Seen); Hyaline Cast 0-5 SEEN /lpf (0-5); Mucous, Urine RARE /hpf (<or=2+); Squamous Epithelial Cells - UA 0-5 SEEN /hpf (5-10); White Blood Cells 5-10 SEEN /hpf (0-5)
[2019-10-17] MEDS: Smz/Tmp Ds Tablet 1 TABLET PO (13:49)
[2019-10-17 13:51] VITALS: BP 113/80; PULSE 103; RESP 19; O2SAT 100
== END 2019-10-17 13:52 | disposition home or self-care (01) ==
PROVIDERS: Emergency Provider Emergency Medicine
DX: S09.90XA Unspecified injury of head, initial encounter (principal); N39.0 Urinary tract infection, site not specified; Y09 Assault by unspecified means
CPT/HCPCS: 70450; 71045; 81001

== ENCOUNTER 2019-10-17 19:37 | Emergency (ER) | payer MEDICAID, SELFPAY ==
[2019-10-17 11:10] VITALS: BMI 19.4
[2019-10-17 19:38] VITALS: BP 167/87; PULSE 152; RESP 16; TEMP 37.4; O2SAT 100; BMI 18.8
[2019-10-17 19:49] VITALS: BP 137/120; PULSE 149; RESP 31; TEMP 37.3; O2SAT 100
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
--- NOTE | 2019-10-17 19:50 | EKG12_ITS ---
Test Reason : DYSRHYTHMIA Blood Pressure : / mmHG Vent. Rate : 133 BPM Atrial Rate : 133 BPM P-R Int : 112 ms QRS Dur : 070 ms QT Int : 292 ms P-R-T Axes : 077 089 022 degrees QTc Int : 434 ms Sinus tachycardia Otherwise normal ECG Confirmed by JIMENA AUSTIN ([id number]), map editor PAULO GOFF ([id number]) on 10/20/2019 2:33:45 PM Referred By: TL Confirmed By:JIMENA AUSTIN
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
[2019-10-17] MEDS: LORazepam 2 MG/ML Syringe IM (20:12)
[2019-10-17 20:17] LABS: Internal QC Validated? YES +Cl - CLEAR BKGD; Pregnancy, Urine Negative Negative
[2019-10-17 20:47] LABS: Absolute Lymphocyte Count 1.76 X10^3/uL (0.83-4.51); Basophil# 0.08 X10^3/uL; Basophil% 0.5 % (0-1); Eosinophil# 0.05 X10^3/uL; Eosinophils% 0.3 % (0-5); Hematocrit 34.4 % (37-47); Hemoglobin 10.5 g/dL (12.0-15.0); Lymphocyte # 1.76 X10^3/ul (4.0); Lymphocyte % 10.3 % (19-41); Mean Corp Hgb Conc 30.5 g/dL (32-36); Mean Corpuscular Hgb 24.2 pg (27.0-32.0); Mean Corpuscular Volume 79.4 fL (81-99); Mean Platelet Vol. 9.5 fl (6.2-12.0); Monocyte# 0.44 X10^3/uL; Monocyte% 2.6 % (0-10); NRBC Flagged by Analyzer 0 % (0-5); Neutrophil # 13.97 X10^3/uL (2.7-7.7); Platelet Count 340 K/mm3 (150-450); RBC Distribution Width CV 15.2 % (11.6-14.6); RBC Distribution Width SD 43.8 fl (35.1-43.9); Red Blood Count 4.33 M/mm3 (4.2-5.4)
[2019-10-17 20:56] VITALS: BP 116/74; PULSE 123; RESP 20; O2SAT 97
[2019-10-17 21:02] LABS: International Normalized Ratio 1.3; Prothrombin Time (Protime)PT. 15.5 SECONDS (11.7-14.9)
[2019-10-17 21:03] LABS: Partial Thromboplast Time 32.3 Seconds (24.1-36.2)
[2019-10-17 21:05] LABS: ALB/GLOB Ratio 0.6 RATIO (0.9-2.4); AST(SGOT) 179 U/L (15-37); Alanine Aminotransfer ALT/SGPT 77 U/L (13-56); Albumin, Serum 3.3 g/dL (3.2-5.0); Alkaline Phosphatase 170 U/L (45-117); Anion Gap 13 (5-15); BUN 21 mg/dL (7-18); BUN/Creat Ratio 13.7 RATIO (10-20); Calcium,Total 8.6 mg/dL (8.5-10.1); Chloride 107 mmol/L (98-107); Creatinine, Serum 1.53 mg/dL (0.55-1.02); EST Glomerular Filtration Rate 41 mL/min (>60); Est Glom Filt Rate - Afr Amer 50 mL/min (>60); Globulin 5.4 g/dL (2.2-4.2); Glucose 76 mg/dL (74-106); Lipase 134 U/L (73-393); Potassium 3.2 mmol/L (3.5-5.1); Protein, Total 8.7 g/dL (6.4-8.2); Sodium Level 138 mmol/L (136-145)
[2019-10-17 21:11] VITALS: BP 134/74; PULSE 121; RESP 28; TEMP 37.1; O2SAT 98
[2019-10-17] MEDS: 0.9% Normal Saline 1,000 ML 1000 ML IV (21:12)
[2019-10-17 21:28] LABS: Alcohol, Blood (Medical)-Serum < 3.0 mg/dL
[2019-10-17 22:02] VITALS: BP 128/73; PULSE 119; RESP 20; TEMP 37.1; O2SAT 98
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
[2019-10-17 22:32] LABS: Amphetamine Urine VISTA POSITIVE (<1000 ng/mL); Barbiturate Urine VISTA NEGATIVE (< 200 ng/mL); Benzodiazepine Urine VISTA NEGATIVE (< 200 ng/mL); Cocaine Urine VISTA NEGATIVE (< 300 ng/mL); Ecstacy Urine VISTA POSITIVE (< 500 ng/mL); Methadone Urine VISTA NEGATIVE (< 300 ng/mL); PCP Urine VISTA NEGATIVE (< 25 ng/mL); THC Urine VISTA NEGATIVE (< 50 ng/mL); Vista UDS pH Range 6
[2019-10-17 23:38] VITALS: BP 113/70; PULSE 116; RESP 18; O2SAT 98
[2019-10-18] VITALS (8 sets, daily range): BP systolic 111–122; BP diastolic 68–83; PULSE 87–114; RESP 16–18; O2SAT 98–100
--- NOTE | 2019-10-18 20:52 | DCINST.ED_ITS ---
ED Disposition - Plan for ED Patient: Disposition: Home or Assisted Living Prescriptions: Smz/Tmp Ds [Bactrim Ds] 1 tab PO BID #10 tab Transmission Status: Pending to [facility] #30 Referrals: Care Physician,No Primary [Primary Care Provider] - Additional Instructions: Patient apparently lost her prescription for Bactrim from previous visits. I am going to send it electronically to her pharmacy
--- NOTE | 2019-10-18 20:59 | ED.RN ---
pt called into er today to report that their prescription for bactrim was missing and they needed a new one. dr osman sent an electronic prescription to [facility] in [place]. i attempted to call pt and inform them but was unable to talk to them and left a message to call back.
== END 2019-10-18 09:09 | disposition home or self-care (01) ==
LOC: ED 20:55
PROVIDERS: Emergency Provider Emergency Medicine
DX: F15.20 Other stimulant dependence, uncomplicated (principal); F17.200 Nicotine dependence, unspecified, uncomplicated; N39.0 Urinary tract infection, site not specified; H92.01 Otalgia, right ear; S09.90XA Unspecified injury of head, initial encounter; Y09 Assault by unspecified means
CPT/HCPCS: 70450; 71045; 71260; 72125; 74177; 80053; 80307; 80320; 81001; 81025; 83690; 85025; 85610; 85730; 93005; 99285; J7030; P9612; Q9967; A4216; G0480

== ENCOUNTER 2019-10-23 21:46 | Emergency (ER) | payer MEDICAID, SELFPAY ==
[2019-10-23 21:48] VITALS: BP 129/90; PULSE 112; RESP 15; TEMP 36.9; O2SAT 98; BMI 19.8
--- NOTE | 2019-10-23 22:15 | ED.DCSUM_ITS ---
History of Present Illness Chief Complaint: Substance Abuse Informant: Patient Narrative: Patient presents with open sores. She stated she is hoping to get some antibiotic ointment for her open sores. She is a methamphetamine user and frequently picks at her wounds. She has had multiple visits here. Recently diagnosed with urinary tract infection. She has had some injuries in the past with negative CAT scans. Patient also stated she lost her antibiotic for Bactrim for her UTI. She is requesting a new prescription for this. She does not have any urinary symptoms however. Denies any other problems at this time - Past Medical History (1) Hepatitis Status: Chronic (2) History of hepatitis C Status: Chronic (3) History of heroin use Status: Chronic (4) History of methamphetamine use Status: Chronic (5) Ear hematoma, right Status: Inactive Past Medical History - Allergies and Home Meds Allergies/Adverse Reactions: Allergies No Known Allergies Allergy (Verified 10/23/19 21:53) Primary Care Physician: Care Physician,No Primary [Primary Care Provider] - Prior records reviewed: Yes Past Medical History: - - See problem list Surgical History: - - Right ear hematoma drained 3 days ago. Lives: With Family Smoking Status: Current every day smoker Drugs: - - Heroin and methamphetamines - Family History Maternal Family History: Reports: Cancer - Lung cancer, Diabetes, Heart Disease, Hypertension, Renal Disease Paternal Family History: Reports: Cancer - colon; and lung, Diabetes, Heart Disease Review of Systems General: Denies: Chills, Fever, Sweats Eyes: Denies: Visual changes - bilaterally, Diplopia ENT: Denies: Rhinorrhea, Sore throat Cardiovascular: Denies: Chest pain, Palpitations Respiratory: Denies: Dyspnea, Cough, Dyspnea on exertion Gastrointestinal: Denies: Abdominal pain, Nausea, Vomiting, Diarrhea, Melena, Hematochezia Genitourinary: Denies: Dysuria, Hematuria, Frequency Musculoskeletal: Denies: Back pain, Extremity Pain Skin: Reports: Wounds. Denies: Rash Neurological: Denies: Headache, Weakness, Numbness Physical Exam Vital Signs/Narrative: Vital Signs Temp Pulse Resp BP Pulse Ox 10/23/19 21:48 98.4 F 112 H 15 129/90 H 98 General: Well nourished, Well developed, No Acute Distress Head: Normocephalic, Atraumatic Eyes: Perrl, EOMI ENT: Moist mucous membranes, No rhinorrhea Neck: Supple, Nontender Cardiovascular: Regular rate, Regular rhythm, No murmurs Respiratory: No distress, CTA bilaterally, Chest nontender Abdomen: Soft, Nontender, Nondistended, Normal bowel sounds Back: Nontender, Normal Inspection Extremities: Nontender, No edema Skin: No rash, - - Patient has multiple open sores throughout her whole body. They are on her face extremities chest and back. There is no evidence of cellulitis or infection of the sores. She gets these from picking Neurological: Alert, Oriented x3, Cranial nerves II-XII grossly intact, Normal Strength, Normal Sensation Psychological: Normal affect, Normal Mood Diagnostic/Tx/Re-eval - Medical Decision Making Her sores are not infected at this time. Given bacitracin and told to try to stop picking. Will be given a follow-up with 180 as well as a family doctor. I will rewrite her for Bactrim antibiotic for her urinary tract infection she will follow-up as an outpatient ED Disposition - Plan for ED Patient: Disposition: Home or Assisted Living Diagnosis: Skin sore Instructions: ED AMPHETAMINE ABUSE Prescriptions: Smz/Tmp Ds [Bactrim Ds] 1 tab PO BID #14 tab Transmission Status: Pending to [facility] #30 Referrals: [facility] [STAFF PHYSICIAN] - Angel Damon MD [STAFF PHYSICIAN] -
== END 2019-10-23 22:40 | disposition home or self-care (01) ==
LOC: ED 22:29
PROVIDERS: Emergency Provider Emergency Medicine
DX: L98.9 Disorder of the skin and subcutaneous tissue, unspecified (principal); F17.200 Nicotine dependence, unspecified, uncomplicated; F19.10 Other psychoactive substance abuse, uncomplicated
CPT/HCPCS: 99282

== ENCOUNTER 2020-07-22 16:42 | Emergency (ER) | payer MEDICAID, SELFPAY ==
[2020-07-22 16:43] VITALS: BP 178/103; PULSE 144; RESP 21; TEMP 36.3; O2SAT 95; BMI 23.7
--- NOTE | 2020-07-22 17:09 | ED.VISSUMM ---
- ER Visit Summary Date of Service: 07/22/20 Chief Complaint: Overdose on methamphetamine and heroin History of Present Illness: The patient is a 34 F who presents after an overdose on methamphetamine and heroin. Patient is very agitated. Patient has pressured speech. Patient has tangential thoughts. Patient admits to having some scratching of her face and chest. Patient denies any fevers or chills. Patient denies any chest pain or shortness of breath. Patient denies any nausea or vomiting. Patient is a very poor historian. Physical Examination: Vital signs are stable except for tachycardia of 144. Patient is afebrile. Patient is in no acute distress but is agitated on examination. Oral mucosa is pink and moist. Neck is supple. Trachea is midline. There is no JVD. Heart was regular and tachycardic. Lungs are clear and equal bilaterally. Abdomen is soft. Bowel sounds are normal. There is no tenderness. Cranial nerves II through XII are grossly intact. There are no focal motor or sensory deficits. Remedies are intact. There is no calf tenderness or edema. Emergency Department Course and Treatment: Patient was given a dose of IM Ativan and Benadryl. Patient is somewhat more calm and cooperative on reevaluation. Patient was instructed to follow-up with 180 in 3 to 5 days. Patient was instructed return if worse in any way. Patient understood and was agreeable with the plan. All questions were answered. Disposition: Discharge home Impression: 1. Methamphetamine abuse 2. Opiate abuse This note was generated with PreViser dictation software. It may contain incorrect words, spelling, and punctuation that were not noted in review of the chart prior to signing ED Disposition - Plan for ED Patient: Disposition: Home or Assisted Living Diagnosis: History of heroin use, History of methamphetamine use Instructions: ED Drug Abuse, ED Opiate Abuse Referrals: Care Physician,No Primary [NON-STAFF] - [facility] [STAFF PHYSICIAN] - 1-2 Days if not improving
[2020-07-22] MEDS: DiphenhydrAMINE 50 MG/ML Syringe IM (17:15)
[2020-07-22] MEDS: LORazepam 2 MG/ML Syringe IM (17:15)
--- NOTE | 2020-07-22 18:33 | ED.RN ---
Pt was trying to insert handle in her vagina when this nurse entered the room. pt was dressed and escorted out of department
== END 2020-07-22 18:34 | disposition home or self-care (01) ==
PROVIDERS: Emergency Provider Emergency Medicine; PCP Nurse Practitioner Family
DX: F15.10 Other stimulant abuse, uncomplicated (principal); F11.10 Opioid abuse, uncomplicated; F17.200 Nicotine dependence, unspecified, uncomplicated
CPT/HCPCS: 96372; 99284

== ENCOUNTER 2020-08-29 11:56 | Observation (INO) | payer MEDICAID, SELFPAY ==
[2020-08-29 11:57] VITALS: BP 149/98; PULSE 148; RESP 16; TEMP 36.6; O2SAT 97; BMI 17.7
[2020-08-29 12:39] LABS: Absolute Lymphocyte Count 7.04 X10^3/uL (0.83-4.51); Basophil# 0.07 X10^3/uL; Basophil% 0.5 % (0-1); Eosinophil# 0.49 X10^3/uL; Eosinophils% 3.4 % (0-5); Hematocrit 32.9 % (37-47); Hemoglobin 9.8 g/dL (12.0-15.0); Lymphocyte # 7.04 X10^3/ul (4.0); Lymphocyte % 49.1 % (19-41); Mean Corp Hgb Conc 29.8 g/dL (32-36); Mean Corpuscular Hgb 23.8 pg (27.0-32.0); Mean Platelet Vol. 9.4 fl (6.2-12.0); Monocyte% 11.2 % (0-10); NRBC Flagged by Analyzer 0 % (0-5); Neutrophil # 5.03 X10^3/uL (2.7-7.7); POSITIVE DIFFERENTIAL YES; POSITIVE MORPHOLOGY YES; Platelet Count 557 K/mm3 (150-450); RBC Distribution Width CV 14.9 % (11.6-14.6); RBC Distribution Width SD 43.6 fl (35.1-43.9); Red Blood Count 4.11 M/mm3 (4.2-5.4); White Blood Count 14.3 K/mm3 (4.4-11.0)
[2020-08-29 12:41] LABS: Differential Indicated SCAN CRITERIA MET
[2020-08-29 12:49] LABS: ALB/GLOB Ratio 0.7 RATIO (0.9-2.4); AST(SGOT) 148 U/L (15-37); Alanine Aminotransfer ALT/SGPT 184 U/L (13-56); Albumin, Serum 3.4 g/dL (3.2-5.0); Alkaline Phosphatase 116 U/L (45-117); Anion Gap 9 (5-15); BUN 14 mg/dL (7-18); BUN/Creat Ratio 12.3 RATIO (10-20); Chloride 103 mmol/L (98-107); Creatinine, Serum 1.14 mg/dL (0.55-1.02); EST Glomerular Filtration Rate 57 mL/min (>60); Est Glom Filt Rate - Afr Amer 69 mL/min (>60); Estimated Creatinine Clearance 53.74 ml/min; Globulin 4.7 g/dL (2.2-4.2); Glucose 120 mg/dL (74-106); Potassium 3.4 mmol/L (3.5-5.1); Protein, Total 8.1 g/dL (6.4-8.2); Sodium Level 136 mmol/L (136-145)
[2020-08-29 13:33] LABS: Amphetamine Urine VISTA POSITIVE (<1000 ng/mL); Barbiturate Urine VISTA NEGATIVE (< 200 ng/mL); Benzodiazepine Urine VISTA NEGATIVE (< 200 ng/mL); Cocaine Urine VISTA NEGATIVE (< 300 ng/mL); Ecstacy Urine VISTA POSITIVE (< 500 ng/mL); Methadone Urine VISTA NEGATIVE (< 300 ng/mL); PCP Urine VISTA NEGATIVE (< 25 ng/mL); THC Urine VISTA POSITIVE (< 50 ng/mL); Vista UDS pH Range 5
--- NOTE | 2020-08-29 14:15 | ED.VIS.GEN ---
History of Present Illness Chief Complaint: Substance Abuse Detail of Chief Complaint: Requesting detox from heroin Informant: Patient Narrative: Patient presents stating that she has a history of drug abuse and is requesting detox. She states she uses meth and heroin every day. I did advise her that we do not have a detox program available for meth, however detox program from heroin is available. Patient is very animated and anxious but does reiterate to me multiple times that she wishes to get help and get off of drugs. - Past Medical History (1) Hepatitis Status: Chronic (2) History of heroin use Status: Chronic (3) History of methamphetamine use Status: Chronic Past Medical History - Allergies and Home Meds Allergies/Adverse Reactions: Allergies No Known Allergies Allergy (Verified 08/29/20 12:01) Primary Care Physician: Melinda Monge NP, MEDICAL CLAIMS ASSISTANT-C [Primary Care Provider] - Prior records reviewed: Yes Surgical History: - - Right ear hematoma drained 3 days ago. Smoking Status: Never smoker - Family History Maternal Family History: Reports: Cancer - Lung cancer, Diabetes, Heart Disease, Hypertension, Renal Disease Paternal Family History: Reports: Cancer - colon; and lung, Diabetes, Heart Disease Review of Systems General: Denies: Chills, Fever Eyes: Denies: Visual changes - bilaterally ENT: Denies: Bilateral ear pain Cardiovascular: Denies: Chest pain Respiratory: Denies: Dyspnea Musculoskeletal: Denies: Extremity Pain Skin: Reports: Abrasions, Wounds Psych: Reports: Anxiety Hematologic: Denies: Easy bruising, Easy bleeding Allergy: Denies: Uticaria Physical Exam Vital Signs/Narrative: Vital Signs Temp Pulse Resp BP Pulse Ox 08/29/20 11:57 97.8 F 148 H 16 149/98 H 97 Inital Vital Signs reviewed: Yes General: Well nourished, Well developed Head: Normocephalic ENT: Moist mucous membranes Cardiovascular: Tachycardia Respiratory: No distress, CTA bilaterally Abdomen: Soft, Nontender Skin: Pallor, - - Patient has multiple scabs over her face, extremities. No sign of secondary infection at this time. Neurological: Alert, Hyperalert Psychological: - - Anxious Diagnostic/Tx/Re-eval Laboratory Results 08/29/20 08/29/20 08/29/20 12:20 12:20 12:20 WBC 14.3 H RBC 4.11 L Hgb 9.8 L Hct 32.9 L MCV 80.0 L MCH 23.8 L MCHC 29.8 L RDW Std Deviation 43.6 RDW Coeff of Owen 14.9 H Plt Count 557 H MPV 9.4 Immature Gran % (Auto) 0.800 Neut % (Auto) 35.0 L Lymph % (Auto) 49.1 H [place] % (Auto) 11.2 H Eos % (Auto) 3.4 Baso % (Auto) 0.5 Absolute Neuts (auto) 5.0 Absolute Lymphs (auto) 7.04 H Nucleated RBC % 0 Differential Comment COMMENT Diff Path Review May foll Sodium 136 Potassium 3.4 L Chloride 103 Carbon Dioxide 24.0 Anion Gap 9 BUN 14 Creatinine 1.14 H Estim Creat Clear Calc 53.74 Est GFR (MDRD) Af Amer 69 Est GFR (MDRD) Non-Af 57 L BUN/Creatinine Ratio 12.3 Glucose 120 H Calcium 9.0 Total Bilirubin 0.40 AST 148 H ALT 184 H Alkaline Phosphatase 116 Total Protein 8.1 Albumin 3.4 Globulin 4.7 H Albumin/Globulin Ratio 0.7 L Urine Opiates Screen Urine Methadone Screen Ur Barbiturates Screen Ur Phencyclidine Scrn Ur Amphetamines Screen U Methamphetamin-MDMA U Benzodiazepines Scrn Urine Cocaine Screen U Cannabinoids Screen Ur Drug Screen Comment Ethyl Alcohol 4.0 08/29/20 12:45 WBC RBC Hgb Hct MCV MCH MCHC RDW Std Deviation RDW Coeff of Owen Plt Count MPV Immature Gran % (Auto) Neut % (Auto) Lymph % (Auto) [place] % (Auto) Eos % (Auto) Baso % (Auto) Absolute Neuts (auto) Absolute Lymphs (auto) Nucleated RBC % Differential Comment Diff Path Review Sodium Potassium Chloride Carbon Dioxide Anion Gap BUN Creatinine Estim Creat Clear Calc Est GFR (MDRD) Af Amer Est GFR (MDRD) Non-Af BUN/Creatinine Ratio Glucose Calcium Total Bilirubin AST ALT Alkaline Phosphatase Total Protein Albumin Globulin Albumin/Globulin Ratio Urine Opiates Screen NEGATIVE Urine Methadone Screen NEGATIVE Ur Barbiturates Screen NEGATIVE Ur Phencyclidine Scrn NEGATIVE Ur Amphetamines Screen POSITIVE H U Methamphetamin-MDMA POSITIVE H U Benzodiazepines Scrn NEGATIVE Urine Cocaine Screen NEGATIVE U Cannabinoids Screen POSITIVE H Ur Drug Screen Comment Ethyl Alcohol - Medical Decision Making Patient was observed on sales operations manager secondary to her tachycardia. Blood work is largely unremarkable. Tox screen is positive for meth and marijuana. Patient continues to voice desire for detox. I spoke with hospitalist and patient will be admitted. ED Disposition - Plan for ED Patient: Disposition[facility] Diagnosis: Desire for detoxification Referrals: Melinda Monge NP, MEDICAL CLAIMS ASSISTANT-C [Primary Care Provider] -
[2020-08-29 14:32] LABS: Internal QC Validated? YES +Cl - CLEAR BKGD; Pregnancy, Serum, hCG Quali. NEGATIVE Negative
--- NOTE | 2020-08-29 14:32 | HP.PCM_ITS ---
Problem List (1) Desire for detoxification Status: Acute (2) Opiate withdrawal Status: Chronic (3) Tobacco use Status: Chronic (4) Elevated LFTs Status: Chronic (5) Anemia Status: Chronic Qualifiers: Anemia type: unspecified type Qualified Code(s): D64.9 - Anemia, unspecified (6) Severe protein-calorie malnutrition Status: Chronic (7) History of hepatitis C Status: Chronic History of Present Illness Date of Admission: 08/29/20 Chief Complaint: Acute Opiate Withdrawal The patient is a 35 y/o F w/ PMHx: Tobacco use, Anxiety and Depression, Polysubstance abuse (Heroin, Meth, Cocaine, Cannabis, currently using IV, usually 1.5-2 gm heroin daily), Known Hepatitis C who presents to the [facility] ED on 08/29/20, noted to be homeless, warrants for her arrest current per discussion with her both locally and out of state w/ noted acute opiate withdrawal onset starting prior to ED arrival following last dose IV heroin earlier in the day with abdominal pain/cramping, generalized body aches and pains, fatigue, restless leg, sweating. Patient interested in attaining clean status noting she can longer live like this. She also discussed having 3 children, 17, 15 and 13, all in their father's custody. She notes having missed a recent birthday secondary to her abuse. Work-up in the ED included T 97.8, heart rate 148, BP 149/98, respiratory rate 16, 97% room air, CBC with WC 14.3, hemoglobin 9.8, platelet 557 with elevated lymphs CMP with potassium 3.4, BUN/creatinine 14/1.14, glucose 120, elevated AST/LT 148/184, negative urine testing, UDS with positive amphetamine, methamphetamine, cannabis, ethyl alcohol level 4. Past Medical History Past Medical History (Chronic Problems): Chronic Problems Opiate withdrawal (Chronic) Tobacco use (Chronic) Elevated LFTs (Chronic) Anemia (Chronic) Severe protein-calorie malnutrition (Chronic) History of hepatitis C (Chronic) History of heroin use (Chronic) History of methamphetamine use (Chronic) Hepatitis (Chronic) Allergies No Known Allergies Allergy (Verified 08/29/20 12:01) Home Medications: Ambulatory Orders Medication Instructions Recorded NK 08/29/20 Surgical History: - - Intervention for right ear hematoma, x3, tonsillectomy, x1, bilateral tubal ligation. Psychiatric History: Anxiety, Depression COLLECTIONS CURATOR History: No pertinent COLLECTIONS CURATOR history Lives: Homeless Smoking Status: Current every day smoker - Patient has ongoing 1/2 pack to 1 pack/day cigarette tobacco usage since youth. Tobacco Use: Cigarettes Alcohol: None Drugs: Cocaine, Heroin, Marijuana - *Family History Maternal History Items: Cancer - Lung cancer, Diabetes, Heart Disease, Hypertension, Renal Disease Paternal History Items: Cancer - colon; and lung, Diabetes, Heart Disease Review of Systems Constitutional: Reports: Anorexia, Malaise, Weakness, Weight Change, Fatigue. Denies: Chills, Fever HEENT: Reports: Nasal Congestion, Post Nasal Drip. Denies: Head Aches, Sinus Congestion, Sinus Drainage Cardiovascular: Denies: Chest Pain, Palpitations Respiratory: Denies: Cough, Shortness of Breath, Shortness of breath at rest, Shortness of breath upon exertion, Sputum production Gastrointestinal: Reports: Abdominal Pain, Nausea. Denies: Vomiting Genitourinary: Denies: Dysuria Musculoskeletal: Reports: Back Pain, Joint Pain, Muscle pain. Denies: Joint Tenderness Skin: Reports: Skin Changes, Wounds. Denies: Rash Neurological: Denies: Focal weakness, Numbness, Tingling Psychiatric: Reports: Anxiety, Depression. Denies: Homicidal Ideations, Suicidal Ideations Hematologic/ Lymphatic: Reports: Anemia. Denies: Easy Bruising, Easy Bleeding VTE Information - Inpt Only VTE Present on Admission: No VTE Mechan Device Prophylaxis: None VTE Pharm Prophylaxis ordered?: No Reason prophylaxis not ordered:: Treatment Not Indicated Patient Problems: Active and Suspected Problems Desire for detoxification (Acute) Subjective: Patient laying in the ED bed, very restless, moving frequently, complaining of back pain, generalized body aches. Objective: Physical Examination: General: awake, alert, oriented x 3 and cooperative, laying in the ED bed, frequently moving, noting generalized body aches, restless. Skin: normal color, turgor, no icterus, cyanosis except significant various staged ecchymoses, track zavala, diffuse excoriations and PICC skin regions no obvious infection. HEENT: AT/NC, EOMI, PERRLA, dry MM, no carotid bruits or JVD noted, mild rhinorrhea evident. Lungs: Diminished breath sounds, greater bases, no obvious evidence of any respiratory distress, no rales, ronchi or wheezing. Heart: Tachycardic with regular rhythm; no gallop, rub audible. Abdomen: soft, thin cachectic habitus, NTTP, ND, normal BS, mild HM. Extremities: no cyanosis, clubbing, or edema. See skin. Neurological: patient awake, alert, oriented as noted; cognitive function intact; pupils equally reactive to light and accomodation; cranial nerves II-XII grossly normal, moving all 4 extremities, no focal deficits, strength preserved, extremely restless, moving frequently, complaining of generalized body aches. Psychiatric: affect appears restless, anxious, no acute evidence of depressive feelings. - Physical Exam Vitals/I&O's: Vital Signs Temp Pulse Resp BP Pulse Ox 97.8 F 148 H 16 149/98 H 97 08/29/20 11:57 08/29/20 11:57 08/29/20 11:57 08/29/20 11:57 08/29/20 11:57 Weight: 110 lb Body Mass Index (BMI) 17.7 Laboratory Results 08/29/20 12:20: WBC 14.3 H, RBC 4.11 L, Hgb 9.8 L, Hct 32.9 L, MCV 80.0 L, MCH 23.8 L, MCHC 29.8 L, RDW Std Deviation 43.6, RDW Coeff of Owen 14.9 H, Plt Count 557 H, MPV 9.4, Immature Gran % (Auto) 0.800, Neut % (Auto) 35.0 L, Lymph % (Auto) 49.1 H, [place] % (Auto) 11.2 H, Eos % (Auto) 3.4, Baso % (Auto) 0.5, Absolute Neuts (auto) 5.0, Absolute Lymphs (auto) 7.04 H, Nucleated RBC % 0, Differential Comment COMMENT, Diff Path Review September08/29/20 12:20: Sodium 136, Potassium 3.4 L, Chloride 103, Carbon Dioxide 24.0, Anion Gap 9, BUN 14, Creatinine 1.14 H, Estim Creat Clear Calc 53.74, Est GFR (MDRD) Af Amer 69, Est GFR (MDRD) Non-Af 57 L, BUN/Creatinine Ratio 12.3, Glucose 120 H, Calcium 9.0, Total Bilirubin 0.40, AST 148 H, ALT 184 H, Alkaline Phosphatase 116, Total Protein 8.1, Albumin 3.4, Globulin 4.7 H, Albumin/Globulin Ratio 0.7 L 08/29/20 12:20: Ethyl Alcohol 4.0 08/29/20 12:20: Serum , Qual Pending 08/29/20 12:45: Urine Opiates Screen NEGATIVE, Urine Methadone Screen NEGATIVE, Ur Barbiturates Screen NEGATIVE, Ur Phencyclidine Scrn NEGATIVE, Ur Amphetamines Screen POSITIVE H, U Methamphetamin-MDMA POSITIVE H, U Benzodiazepines Scrn NEGATIVE, Urine Cocaine Screen NEGATIVE, U Cannabinoids Screen POSITIVE H, Ur Drug Screen Comment Assessment/Plan All Active Problems Desire for detoxification (Acute) The patient is a 35 y/o F w/ PMHx: Tobacco use, Anxiety and Depression, Polysubstance abuse (Heroin, Meth, Cocaine, Cannabis, currently using IV, usually 1.5-2 gm heroin daily), Known Hepatitis C who presents to the [facility] ED on 08/29/20, noted to be homeless, warrants for her arrest current per discussion with her both locally and out of state w/ noted acute opiate withdrawal onset starting prior to ED arrival following last dose IV heroin earlier in the day. 1. Acute Opiate Withdrawal: Will admit to [facility], routine labs including CBC, CMP, urine for drug screen obtained in the ED, will initiate and continue on protocol with tapering course of Subutex, as needed tylenol, ibuprofen, bowel regimen, gabapentin, Bentyl, Vistaril, methocarbamol, clonidine, PRN nightly trazodone for insomnia, IV fluids, IV antiemetics. Once patient clinically improved and completion of taper nearing will plan consultation with case management for transition to next level of rehabilitation care. 2. Polysubstance Abuse, IVDA Hx, History of Hepatitis C, Chronic: Patient currently not candidate for hep C treatment currently as needs to be clean, sober x 6 months, documented attendance NA or AA meetings, counseling and ongoing negative drug screens. Once appropriate GI, ID to initiate. HIV, hepatitis panel to assess for co-infection pending. 3. Hypokalemia: Admission K+ 3.4, magnesium level pending, supplementation given, repeat level in AM. 4. Chronic microcytic anemia: Admission hemoglobin 9.8, similar to prior, MCV 80, iron panel, ferritin, vitamin B12 and folic acid pending given poor follow- up likelihood. 5. Chronic LFT elevations: Admission AST/LT 148/184, alk phos 116, total bilirubin 0.40, this elevations noted in [facility] 08/11/2018, likely secondary to underlying history of hepatitis C, hepatitis panel pending for co-infection, repeat CMP in AM. 6. Protein calorie malnutrition: Evidenced by habitus, reduced BMI, obvious muscle and fat loss, nutrition consulted. 7. Diffuse extremity excoriations, picked regions: We will utilize mupirocin 3 times daily application to these regions, strongly encouraged picking avoidance, as needed Vistaril if itching. 8. Tobacco Abuse: Encouraged cessation, inpatient consultation per RT, NR if desired. 9. DVT prophylaxis: Low risk, encourage ambulation. Inpatient E&M: 88896 Init Hosp L3
--- NOTE | 2020-08-29 14:33 | NURSING ---
MED SURG WHITE DETOX HEROIN
[2020-08-29 15:09] VITALS: BP 135/82; PULSE 75; RESP 16; TEMP 36.6; O2SAT 98
--- NOTE | 2020-08-29 15:17 | CM.ED ---
Social Work Consult: Substance Abuse Referral source: Self referral due to reason for visit Met with patient in room. Introduced self and social service liaison role. Patient agreeable to speaking with this social service liaison. Patient seeking medical management of withdrawal symptoms, [facility] ([facility] Patient reports substance of choice as meth and heroin. Patient verbally agreeing to [facility] contract while speaking with this social service liaison. Patient unsure of follow up plans after completion of [facility], history of [facility] updated on patient [facility]. Esha VILLASEÑOR, SHYAM-Danyell
[2020-08-29 15:22] LABS: Magnesium 2.1 mg/dL (1.6-2.6)
[2020-08-29 15:28] VITALS: BP 133/80; PULSE 114; RESP 18; TEMP 36.7; O2SAT 100
[2020-08-29 15:30] VITALS: BMI 18.5
[2020-08-29 15:37] VITALS: BMI 18.5
--- NOTE | 2020-08-29 15:44 | NURSING ---
pt with extensive scabs, various sizes all over body/face/extremities- pt will be placed in contact precautions. bottom of her feet are very dirty, pt agreeable to shower.
[2020-08-29 16:20] LABS: HIV - WCH Non-Reactive (Nonreactive)
[2020-08-29] MEDS: cloNIDine HCl 0.1 MG Tablet PO (17:01)
[2020-08-29] MEDS: hydrOXYzine PAM 25 MG Capsule 50 MG PO (17:01)
[2020-08-29] MEDS: Potassium Chloride Oral Tablet 20 MEQ 40 MEQ PO (17:02)
[2020-08-29] MEDS: Dicyclomine 10 MG Capsule 20 MG PO (17:02)
[2020-08-29] MEDS: Buprenorphine HCl 2 MG TAB.SUBL SL (17:02)
[2020-08-29] MEDS: Methocarbamol 750 MG Tablet 1500 MG PO (17:02)
[2020-08-29 18:35] VITALS: BP 118/68; PULSE 103; RESP 16; TEMP 36.8; O2SAT 100
[2020-08-29] MEDS: FLUCONAZOLE 150 MG TABLET PO (18:38)
[2020-08-29 21:27] VITALS: BP 127/89; PULSE 80; RESP 16; TEMP 37; O2SAT 100
[2020-08-29] MEDS: Mupirocin Ointment 22gm Tube 1 APPLIC TOPICAL (21:30)
[2020-08-29] MEDS: Gabapentin 300 MG Capsule PO (21:32)
[2020-08-30] MEDS: hydrOXYzine PAM 25 MG Capsule 50 MG PO (00:06)
[2020-08-30] MEDS: Buprenorphine HCl 2 MG TAB.SUBL SL ×2 (00:07→15:47)
[2020-08-30] MEDS: traZODone 100 MG Tablet PO (00:07)
[2020-08-30 04:51] VITALS: BP 101/40; PULSE 110; RESP 16; TEMP 36.2; O2SAT 100
[2020-08-30] MEDS: Mupirocin Ointment 22gm Tube 1 APPLIC TOPICAL ×3 (04:54→20:42)
[2020-08-30 07:34] VITALS: O2SAT 96
[2020-08-30 07:36] LABS: ALB/GLOB Ratio 0.7 RATIO (0.9-2.4); AST(SGOT) 139 U/L (15-37); Alanine Aminotransfer ALT/SGPT 159 U/L (13-56); Alkaline Phosphatase 105 U/L (45-117); Anion Gap 2 (5-15); BUN 11 mg/dL (7-18); BUN/Creat Ratio 17.8 RATIO (10-20); Calcium,Total 8.8 mg/dL (8.5-10.1); Chloride 104 mmol/L (98-107); Creatinine, Serum 0.62 mg/dL (0.55-1.02); EST Glomerular Filtration Rate 116 mL/min (>60); Est Glom Filt Rate - Afr Amer 141 mL/min (>60); Estimated Creatinine Clearance 103.03 ml/min; Ferritin 15 ng/mL (8-252); Globulin 4.4 g/dL (2.2-4.2); Glucose 89 mg/dL (74-106); Iron 34 ug/dL (50-170); Iron Binding Capacity,Total 536 ug/dL (250-450); PERCENT IRON SATURATION 6.3 % (15.0-55.0); Protein, Total 7.4 g/dL (6.4-8.2); Sodium Level 135 mmol/L (136-145)
[2020-08-30 08:30] LABS: Vitamin B12 1053 pg/mL (211-911)
[2020-08-30 09:53] VITALS: BP 95/51; PULSE 108; RESP 16; TEMP 37.3; O2SAT 100
--- NOTE | 2020-08-30 10:54 | CASEMGMT ---
Social Work Note SW reviewed chart, pt is homeless. SW in to speak with pt. Pt soundly sleeping. SW placed housing resources on pt's table. Ngozi Ram ASSISTANT WOMEN'S TENNIS COACH, CAPABILITY LEAD
--- NOTE | 2020-08-30 10:57 | PCM.PROGNOTE ---
Patient Problems: Active and Suspected Problems Desire for detoxification (Acute) Subjective: Patient seen and examined. Lethargic during assessment. Resting comfortably in bed. - Physical Exam Vitals/I&O's: Vital Signs Temp Pulse Resp BP Pulse Ox 99.1 F 108 H 16 95/51 L 100 08/30/20 09:53 08/30/20 09:53 08/30/20 09:53 08/30/20 09:53 08/30/20 09:53 Oxygen Delivery Method Room Air Weight: 114 lb 11.2 oz Body Mass Index (BMI) 18.5 General: No apparent distress, Lethargic, - - Unkempt HEENT: Atraumatic, PERRLA, EOMI, Normocephalic Neck: Supple, No JVD, Negative Carotid Bruits Lungs: Clear to auscultation, Normal air movement Cardiovascular: Regular rate, No murmurs Abdomen: Bowel Sounds Present, Soft, Non Tender, Non-Distended Extremities: No clubbing, No cyanosis, No edema, Capillary Refill Less than 3 Seconds Skin: No rashes, No breakdown, - - Diffuse scabbing and excoriations, picking behavior. Musculoskeletal: No Tenderness to Palpation of Joints or Extremities Neurological: Cranial nerves II-XII grossly intact, Neuro grossly intact Psych/Mental Status: - - Unable to assess due to lethargy Laboratory Results 08/29/20 12:20: WBC 14.3 H, RBC 4.11 L, Hgb 9.8 L, Hct 32.9 L, MCV 80.0 L, MCH 23.8 L, MCHC 29.8 L, RDW Std Deviation 43.6, RDW Coeff of Owen 14.9 H, Plt Count 557 H, MPV 9.4, Immature Gran % (Auto) 0.800, Neut % (Auto) 35.0 L, Lymph % (Auto) 49.1 H, [place] % (Auto) 11.2 H, Eos % (Auto) 3.4, Baso % (Auto) 0.5, Absolute Neuts (auto) 5.0, Absolute Lymphs (auto) 7.04 H, Nucleated RBC % 0, Differential Comment COMMENT, Diff Path Review September08/29/20 12:20: Sodium 136, Potassium 3.4 L, Chloride 103, Carbon Dioxide 24.0, Anion Gap 9, BUN 14, Creatinine 1.14 H, Estim Creat Clear Calc 53.74, Est GFR (MDRD) Af Amer 69, Est GFR (MDRD) Non-Af 57 L, BUN/Creatinine Ratio 12.3, Glucose 120 H, Calcium 9.0, Total Bilirubin 0.40, AST 148 H, ALT 184 H, Alkaline Phosphatase 116, Total Protein 8.1, Albumin 3.4, Globulin 4.7 H, Albumin/Globulin Ratio 0.7 L 08/29/20 12:20: Ethyl Alcohol 4.0 08/29/20 12:20: Serum , Qual NEGATIVE 08/29/20 12:20: Magnesium 2.1 08/29/20 12:20: Hepatitis A IgM Ab Pending, Hepatitis A Ab Total Pending, Hep Bs Antigen Pending, Hep B Core Total Ab Pending, Hep B Core IgM Ab Pending 08/29/20 12:20: HIV 1&2 Antibody Non-Reactive 08/29/20 12:45: Urine Opiates Screen NEGATIVE, Urine Methadone Screen NEGATIVE, Ur Barbiturates Screen NEGATIVE, Ur Phencyclidine Scrn NEGATIVE, Ur Amphetamines Screen POSITIVE H, U Methamphetamin-MDMA POSITIVE H, U Benzodiazepines Scrn NEGATIVE, Urine Cocaine Screen NEGATIVE, U Cannabinoids Screen POSITIVE H, Ur Drug Screen Comment 08/30/20 06:26: Sodium 135 L, Potassium 4.0, Chloride 104, Carbon Dioxide 29.0, Anion Gap 2 L, BUN 11, Creatinine 0.62, Estim Creat Clear Calc 103.03, Est GFR (MDRD) Af Amer 141, Est GFR (MDRD) Non-Af 116, BUN/Creatinine Ratio 17.8, Glucose 89, Calcium 8.8, Iron 34 L, TIBC 536 H, Iron Saturation 6.3 L, Ferritin 15, Total Bilirubin 0.70, AST 139 H, ALT 159 H, Alkaline Phosphatase 105, Total Protein 7.4, Albumin 3.0 L, Globulin 4.4 H, Albumin/Globulin Ratio 0.7 L, Folate 19.60 08/30/20 06:26: Vitamin B12 1053 H Current Medications Acetaminophen (Acetaminophen 500 Mg Tablet) 500 mg PO Q4H PRN PRN PRN Reason: Temp > 100.4 F, pain 1-10/10 Al Hydroxide/Mg Hydroxide (Mag Hydrox/Al Hydrox/Simeth 30 Ml Udc) 30 ml PO Q6H PRN PRN PRN Reason: dyspesia Albuterol Sulfate (Albuterol 2.5 Mg/3 Ml Vial.Neb.) 2.5 mg INHALATION Q2H PRN PRN PRN Reason: Dyspnea, wheezing Bisacodyl (Bisacodyl 10 Mg Suppository) 10 mg RC DAILY PRN PRN Reason: Constipation Buprenorphine HCl (Buprenorphine Hcl 2 Mg Tab.Subl) 4 mg SL Q8H GWEN; Taper Stop: 09/01/20 15:59 Last Admin: 08/30/20 09:18 Dose: Not Given Documented by: Clonidine (Clonidine Hcl 0.1 Mg Tablet) 0.1 mg PO Q8H PRN PRN PRN Reason: RESTLESSNESS Last Admin: 08/29/20 17:01 Dose: 0.1 mg Documented by: Dicyclomine HCl (Dicyclomine 10 Mg Capsule) 20 mg PO Q6H PRN PRN PRN Reason: Abdominal Discomfort Last Admin: 08/29/20 17:02 Dose: 20 mg Documented by: Gabapentin (Gabapentin 300 Mg Capsule) 300 mg PO Q8H PRN PRN PRN Reason: moderate to severe anxiety Last Admin: 08/29/20 21:32 Dose: 300 mg Documented by: Hydralazine HCl (Hydralazine 20 Mg/Ml Vial) 10 mg IV Q4H PRN PRN PRN Reason: SBP > 160 Hydroxyzine Pamoate (Hydroxyzine Jaymie 25 Mg Capsule) 50 mg PO Q6H PRN PRN PRN Reason: mild anxiety Last Admin: 08/30/20 00:06 Dose: 50 mg Documented by: Ibuprofen (Ibuprofen 600 Mg Tablet) 600 mg PO Q8H PRN PRN PRN Reason: PAIN 1-10 Loperamide HCl (Loperamide 2 Mg Capsule) 2 mg PO Q4H PRN PRN PRN Reason: LOOSE STOOLS Methocarbamol (Methocarbamol 750 Mg Tablet) 1,500 mg PO Q6H PRN PRN PRN Reason: MUSCLE SPASM Last Admin: 08/29/20 17:02 Dose: 1,500 mg Documented by: Mupirocin (Mupirocin Ointment 22gm Tube) 1 applic TOPICAL TID GWEN; Protocol Last Admin: 08/30/20 04:54 Dose: 1 applic Documented by: Nicotine (Nicotine 21 Mg Patch) 21 mg TD DAILY [facility] Last Admin: 08/30/20 10:19 Dose: 21 mg Documented by: Nutritional Formula (Lactose Free) (Ensure Enlive 120 Ml Liquid) 120 ml PO 4X/DAY [facility] Last Admin: 08/30/20 09:20 Dose: Not Given Documented by: Ondansetron HCl (Ondansetron 8 Mg Tablet) 8 mg PO Q8H PRN PRN PRN Reason: NAUSEA Senna (Senna Tablet) 2 tablet PO QHS PRN PRN Reason: Constipation Sodium Chloride (0.9% Saline Lock 10 Ml Syringe) 10 - 40 ml IV UD PRN PRN Reason: SALINE FLUSH Trazodone HCl (Trazodone 100 Mg Tablet) 100 mg PO QHS PRN PRN PRN Reason: INSOMNIA Last Admin: 08/30/20 00:07 Dose: 100 mg Documented by: Medical Necessity - Tobacco Use Smoking Status: Current every day smoker Tobacco Use: Cigarettes Assessment/Plan All Active Problems Desire for detoxification (Acute) 1. Acute opioid withdrawal-medical stabilization per protocol. Buprenorphine taper. As needed regimen for somatic complaints. [employer] consult. 2. Polysubstance abuse with history of IV drug use-tox screen positive for amphetamines, methamphetamine and cannabinoids. Plan per above. 3. History of hepatitis C, chronic-outpatient follow-up following 6 months sobriety. 4. Chronic microcytic anemia, iron deficiency-stable. Begin oral iron supplementation. 5. Chronic elevated LFT- trending down. Hep panel pending. History of hep A and hep C. 6. Moderate protein calorie malnutrition-dietitian consult. 7. Picking behavior, diffuse scabbing/excoriation-Bactroban to affected areas. Wound RN consulted for right hand skin tear. 8. Tobacco dependence-encouraged cessation. Nicotine replacement patch. DVT prophylaxis-low risk, not indicated This patient was seen by AJREN Terry under the supervision of Dr. Jain.
[2020-08-30] MEDS: Ferrous Sulfate 325 MG Tablet PO ×2 (12:23→15:55)
[2020-08-30] MEDS: Methocarbamol 750 MG Tablet 1500 MG PO (12:41)
[2020-08-30 14:15] LABS: Pathologist Review Reviewed
--- NOTE | 2020-08-30 14:59 | NT.THERAPY_ITS ---
Nutrition Therapy Report - History Nutrition Services has been consulted to:: Manage nutrient details of diet order Current diet / nutrition support order:: Regular diet. Ensure Enlive w/ meals and medpass - Anthropometric Measurements Height:: 5 ft 2 in Weight:: 52 kg Body Mass Index (BMI):: 20.9 - Relevant Labs Relevant Labs:: WBC 14.3 K/mm3 (4.4-11.0) H 08/29/20 12:20 RBC 4.11 M/mm3 (4.2-5.4) L 08/29/20 12:20 Hgb 9.8 g/dL (12.0-15.0) L 08/29/20 12:20 Hct 32.9 % (37-47) L 08/29/20 12:20 MCV 80.0 fL (81-99) L 08/29/20 12:20 MCH 23.8 pg (27.0-32.0) L 08/29/20 12:20 MCHC 29.8 g/dL (32-36) L 08/29/20 12:20 RDW Coeff of Owen 14.9 % (11.6-14.6) H 08/29/20 12:20 Plt Count 557 K/mm3 (150-450) H 08/29/20 12:20 Neut % (Auto) 35.0 % (47-70) L 08/29/20 12:20 Lymph % (Auto) 49.1 % (19-41) H 08/29/20 12:20 [place] % (Auto) 11.2 % (0-10) H 08/29/20 12:20 Absolute Lymphs (auto) 7.04 X10^3/uL (0.83-4.51) H 08/29/20 12:20 Sodium 135 mmol/L (136-145) L 08/30/20 06:26 Potassium 3.4 mmol/L (3.5-5.1) L 08/29/20 12:20 Anion Gap 2 (5-15) L 08/30/20 06:26 Creatinine 1.14 mg/dL (0.55-1.02) H 08/29/20 12:20 Est GFR (MDRD) Non-Af 57 mL/min (>60) L 08/29/20 12:20 Glucose 120 mg/dL (74-106) H 08/29/20 12:20 Iron 34 ug/dL (50-170) L 08/30/20 06:26 TIBC 536 ug/dL (250-450) H 08/30/20 06:26 Iron Saturation 6.3 % (15.0-55.0) L 08/30/20 06:26 AST 139 U/L (15-37) H 08/30/20 06:26 ALT 159 U/L (13-56) H 08/30/20 06:26 Albumin 3.0 g/dL (3.2-5.0) L 08/30/20 06:26 Globulin 4.4 g/dL (2.2-4.2) H 08/30/20 06:26 Albumin/Globulin Ratio 0.7 RATIO (0.9-2.4) L 08/30/20 06:26 Vitamin B12 1053 pg/mL (211-911) H 08/30/20 06:26 - Assessment Food / Nutrition-Related History:: Pt very difficult to awaken but, noted breakfast and lunch tray in room untouched. Pt reports UBW~130 lbs and verified in EMR with wt about 5-6 weeks ago 59 Kg, calculated~10-12% wt loss which is significant for severe malnutrition especially given poor PO and +NFPA with obvious muscle and fat wasting in the face, clavicle and upper body. Very poor appetite and intake x past 1-2 months--meeting less than 50% of estimated nutrition needs, muscle/fat wasting evident. Pt has not consumed anything since admit. Will adjust ONS to help optimize intake when pt more awake and starts taking PO. - Nutrition Diagnosis Problem / Etiology / Signs & Symptoms (PES):: Severe pro/anita malnutrition in the context of social circumstance related to drug abuse and inadequate energy intake as evidenced by as evidenced by ~12% wt loss x past 4-6 weeks, severe muscle/fat wasting in clavicle, face, arms and upper body in addition to ongoing poor PO/inadequate PO meeting less than 50% estimated nutrition needs. Evidence of Malnutrition Exists:: Yes Severe PCM:: Social & Environmental circumstances - Nutrition Intervention Nutrition Prescription:: Estimated nutrition needs for repletion~9378-5601 kcal (35 kcal/Kg) and ~60-70 gm pro (1.3 gm pro/kg) per day. Estimated fluid needs~6105-3527 ml/day (36 ml/Kg). - Food / Nutrient Delivery Interventions Summary of nutrition intervention:: Will continue regular diet. Will continue 120ml ensure enlive w/ medpass 4 times per day to provide. 700 kcal & 40 gm protein. Will change ONS w/ meals from ensure enlive to carnation instant breakfast and magic cup BID to provide 820 kcal & 28 gm protein. Nutrition education provided?: No - MNT Monitoring Further MNT monitoring and evaluation required?: Yes MNT Follow-up in:: 3-5 days
[2020-08-30 15:01] VITALS: BMI 20.9
[2020-08-30] MEDS: Ibuprofen 600 MG Tablet PO (15:55)
[2020-08-30 16:14] VITALS: BP 97/55; PULSE 105; RESP 18; TEMP 37.2; O2SAT 99
--- NOTE | 2020-08-30 16:42 | CHAPLAIN ---
Type of Pastoral Visit _x__ Initial Visit ___ Follow-up Visit ___ On-call Visit ___ General Patient Visit ___ Spiritual Assessment ___ Family Conference ___ Bereavement ___ Rapid Response ___ Code Blue ___ Other (describe below) Pastoral Care Referral From _x__ Patient ___ Family ___ Nurse ___ Physician ___ Doper ___ Spike Machine Heater ___ Other (describe below) Sacrament/Intervention _x__ Active listening ___ Anointing ___ Restorationism ___ Bereavement ___ Communion _x__ Thuy exploration ___ _x__ Life review _x__ Prayer ___ Reconciliation ___ Sacrament of Sick _x__ Supportive presence ___ Wedding ___ Other (describe below) Pastoral Comments patient is willing to talk about her life; pt says she is really tired but would like prayer for her addictions and for her family; pt states she knows Home Comfort Advisor Juaquin of the local [facility] and of [facility] [employer] and would like phone numbers; pt says her parents knows about them too and has their information; phone numbers given
[2020-08-30 20:40] VITALS: BP 112/68; PULSE 101; RESP 16; TEMP 37.1; O2SAT 96
[2020-08-31] MEDS: Buprenorphine HCl 2 MG TAB.SUBL SL ×3 (00:20→17:39)
[2020-08-31 02:33] VITALS: BP 99/52; PULSE 88; RESP 16; TEMP 36.9; O2SAT 95
[2020-08-31] MEDS: Mupirocin Ointment 22gm Tube 1 APPLIC TOPICAL ×3 (05:13→21:58)
[2020-08-31 06:48] LABS: Hematocrit 34.3 % (37-47); Hemoglobin 10.1 g/dL (12.0-15.0); Mean Corp Hgb Conc 29.4 g/dL (32-36); Mean Corpuscular Hgb 23.7 pg (27.0-32.0); Mean Corpuscular Volume 80.3 fL (81-99); Mean Platelet Vol. 9.7 fl (6.2-12.0); Platelet Count 437 K/mm3 (150-450); RBC Distribution Width CV 15.1 % (11.6-14.6); RBC Distribution Width SD 44.3 fl (35.1-43.9); Red Blood Count 4.27 M/mm3 (4.2-5.4); White Blood Count 7.3 K/mm3 (4.4-11.0)
[2020-08-31 07:07] LABS: HEPATITIS B SURFACE AG Negative (Negative); Hepatitis A AB, Total Positive (Negative); Hepatitis A IgM Antibody Negative (Negative); Hepatitis B Core AB IgM Negative (Negative); Hepatitis B Core Ab Total Positive (Negative); Hepatitis C Ab >11.0 s/co ratio (0.0-0.9)
[2020-08-31 07:16] LABS: ALB/GLOB Ratio 0.6 RATIO (0.9-2.4); AST(SGOT) 118 U/L (15-37); Alanine Aminotransfer ALT/SGPT 134 U/L (13-56); Albumin, Serum 2.5 g/dL (3.2-5.0); Alkaline Phosphatase 92 U/L (45-117); Anion Gap 5 (5-15); BUN 15 mg/dL (7-18); BUN/Creat Ratio 25.8 RATIO (10-20); Calcium,Total 8.5 mg/dL (8.5-10.1); Chloride 103 mmol/L (98-107); Creatinine, Serum 0.58 mg/dL (0.55-1.02); EST Glomerular Filtration Rate 125 mL/min (>60); Est Glom Filt Rate - Afr Amer 151 mL/min (>60); Estimated Creatinine Clearance 106.05 ml/min; Globulin 4.4 g/dL (2.2-4.2); Glucose 120 mg/dL (74-106); Potassium 4.1 mmol/L (3.5-5.1); Protein, Total 6.9 g/dL (6.4-8.2); Sodium Level 135 mmol/L (136-145)
[2020-08-31 07:41] VITALS: O2SAT 95
[2020-08-31 08:25] VITALS: BP 111/61; PULSE 89; RESP 18; TEMP 36.5; O2SAT 98
[2020-08-31] MEDS: Gabapentin 300 MG Capsule PO (08:35)
[2020-08-31] MEDS: Acetaminophen 500 MG Tablet PO (08:36)
[2020-08-31] MEDS: Methocarbamol 750 MG Tablet 1500 MG PO ×2 (08:36→21:52)
[2020-08-31] MEDS: Ferrous Sulfate 325 MG Tablet PO ×2 (11:36→17:41)
--- NOTE | 2020-08-31 12:34 | PCM.PROGNOTE ---
Patient Problems: Active and Suspected Problems Desire for detoxification (Acute) Subjective: Patient more alert today. Reports pressure feeling with urination and urinary urgency. Reports some dysuria. Denies other symptoms or complaints. - Physical Exam Vitals/I&O's: Vital Signs Temp Pulse Resp BP Pulse Ox 97.7 F L 89 18 111/61 98 08/31/20 08:25 08/31/20 08:25 08/31/20 08:25 08/31/20 08:25 08/31/20 08:25 Oxygen Delivery Method Room Air Weight: 114 lb 10.246 oz Body Mass Index (BMI) 20.9 General: Alert, Oriented x3, Cooperative HEENT: Atraumatic, PERRLA, EOMI, Normocephalic Neck: Supple, No JVD, Negative Carotid Bruits Lungs: Clear to auscultation, Normal air movement Cardiovascular: Regular rate, No murmurs Abdomen: Bowel Sounds Present, Soft, Non Tender Extremities: No clubbing, No cyanosis, No edema, Capillary Refill Less than 3 Seconds Skin: No rashes, No breakdown, - - Diffuse scabbing and excoriations, picking behavior. Musculoskeletal: No Tenderness to Palpation of Joints or Extremities Neurological: Cranial nerves II-XII grossly intact, Neuro grossly intact Psych/Mental Status: Normal Affect, Appropriate Laboratory Results 08/29/20 12:20: Diff Path Review Reviewed 08/31/20 06:01: WBC 7.3, RBC 4.27, Hgb 10.1 L, Hct 34.3 L, MCV 80.3 L, MCH 23.7 L, MCHC 29.4 L, RDW Std Deviation 44.3 H, RDW Coeff of Owen 15.1 H, Plt Count 437, MPV 9.7 08/31/20 06:01: Sodium 135 L, Potassium 4.1, Chloride 103, Carbon Dioxide 27.0, Anion Gap 5, BUN 15, Creatinine 0.58, Estim Creat Clear Calc 106.05, Est GFR (MDRD) Af Amer 151, Est GFR (MDRD) Non-Af 125, BUN/Creatinine Ratio 25.8 H, Glucose 120 H, Calcium 8.5, Total Bilirubin 0.20, AST 118 H, ALT 134 H, Alkaline Phosphatase 92, Total Protein 6.9, Albumin 2.5 L, Globulin 4.4 H, Albumin/Globulin Ratio 0.6 L Current Medications Acetaminophen (Acetaminophen 500 Mg Tablet) 500 mg PO Q4H PRN PRN PRN Reason: Temp > 100.4 F, pain 1-03/03 Last Admin: 08/31/20 08:36 Dose: 500 mg Documented by: Al Hydroxide/Mg Hydroxide (Mag Hydrox/Al Hydrox/Simeth 30 Ml Udc) 30 ml PO Q6H PRN PRN PRN Reason: dyspesia Albuterol Sulfate (Albuterol 2.5 Mg/3 Ml Vial.Neb.) 2.5 mg INHALATION Q2H PRN PRN PRN Reason: Dyspnea, wheezing Aripiprazole (Aripiprazole 10 Mg Tablet) 10 mg PO DAILY GWEN Bisacodyl (Bisacodyl 10 Mg Suppository) 10 mg RC DAILY PRN PRN Reason: Constipation Buprenorphine HCl (Buprenorphine Hcl 2 Mg Tab.Subl) 2 mg SL Q8H GWEN; Taper Stop: 09/01/20 15:59 Last Admin: 08/31/20 08:35 Dose: 2 mg Documented by: Clonidine (Clonidine Hcl 0.1 Mg Tablet) 0.1 mg PO Q8H PRN PRN PRN Reason: RESTLESSNESS Last Admin: 08/29/20 17:01 Dose: 0.1 mg Documented by: Dicyclomine HCl (Dicyclomine 10 Mg Capsule) 20 mg PO Q6H PRN PRN PRN Reason: Abdominal Discomfort Last Admin: 08/29/20 17:02 Dose: 20 mg Documented by: Ferrous Sulfate (Ferrous Sulfate 325 Mg Tablet) 325 mg PO 1200,1700 GWEN Last Admin: 08/31/20 11:36 Dose: 325 mg Documented by: Hydralazine HCl (Hydralazine 20 Mg/Ml Vial) 10 mg IV Q4H PRN PRN PRN Reason: SBP > 160 Hydroxyzine Pamoate (Hydroxyzine Jaymie 25 Mg Capsule) 50 mg PO Q6H PRN PRN PRN Reason: mild anxiety Last Admin: 08/30/20 00:06 Dose: 50 mg Documented by: Ibuprofen (Ibuprofen 600 Mg Tablet) 600 mg PO Q8H PRN PRN PRN Reason: PAIN 1-10 Last Admin: 08/30/20 15:55 Dose: 600 mg Documented by: Loperamide HCl (Loperamide 2 Mg Capsule) 2 mg PO Q4H PRN PRN PRN Reason: LOOSE STOOLS Methocarbamol (Methocarbamol 750 Mg Tablet) 1,500 mg PO Q6H PRN PRN PRN Reason: MUSCLE SPASM Last Admin: 08/31/20 08:36 Dose: 1,500 mg Documented by: Mupirocin (Mupirocin Ointment 22gm Tube) 1 applic TOPICAL TID [facility]; Protocol Last Admin: 08/31/20 05:13 Dose: 1 applic Documented by: Nicotine (Nicotine 21 Mg Patch) 21 mg TD DAILY [facility] Last Admin: 08/31/20 08:37 Dose: 21 mg Documented by: Nutritional Formula (Lactose Free) (Ensure Enlive 120 Ml Liquid) 120 ml PO 4X/DAY [facility] Last Admin: 08/31/20 08:30 Dose: 120 ml Documented by: Ondansetron HCl (Ondansetron 8 Mg Tablet) 8 mg PO Q8H PRN PRN PRN Reason: NAUSEA Senna (Senna Tablet) 2 tablet PO QHS PRN PRN Reason: Constipation Sodium Chloride (0.9% Saline Lock 10 Ml Syringe) 10 - 40 ml IV UD PRN PRN Reason: SALINE FLUSH Trazodone HCl (Trazodone 100 Mg Tablet) 100 mg PO QHS PRN PRN PRN Reason: INSOMNIA Last Admin: 08/30/20 00:07 Dose: 100 mg Documented by: Medical Necessity - Tobacco Use Smoking Status: Current every day smoker Tobacco Use: Cigarettes Assessment/Plan All Active Problems Desire for detoxification (Acute) 1. Acute opioid withdrawal-medical stabilization per protocol. Buprenorphine taper. As needed regimen for somatic complaints. [facility] consult. 2. Polysubstance abuse with history of IV drug use-tox screen positive for amphetamines, methamphetamine and cannabinoids. Plan per above. 3. History of hepatitis C, chronic-outpatient follow-up following 6 months sobriety. 4. Chronic microcytic anemia, iron deficiency-stable. Begin oral iron supplementation. 5. Chronic elevated LFT- trending down. Hep panel pending. History of hep A and hep C. 6. Moderate protein calorie malnutrition-dietitian consult. 7. Picking behavior, diffuse scabbing/excoriation-Bactroban to affected areas. Wound RN consulted for right hand skin tear. 8. Tobacco dependence-encouraged cessation. Nicotine replacement patch. DVT prophylaxis-low risk, not indicated This patient was seen by JAREN Terry under the supervision of Dr. Jain.
[2020-08-31 14:40] VITALS: BP 111/67; PULSE 91; RESP 16; TEMP 36.5; O2SAT 98
[2020-08-31] MEDS: ARIPiprazole 5 MG Tablet 10 MG PO (14:40)
[2020-08-31 15:27] LABS: Hep B Surface Antibodies Reactive (.)
[2020-08-31 18:18] LABS: Mucous, Urine 0 SEEN /hpf (<or=2+)
[2020-08-31 18:51] LABS: Color, Urine Straw (Yellow); Glucose, Dipstick Normal (Normal); Ketone-Dipstick Negative (Negative); Leukocyte Esterase-Dipstick 500 /ul (Negative); Nitrite-Dipstick Negative (Negative); Occult Blood-Urine 10 /ul (Negative); Protein-Dipstick Negative (Negative); Specific Gravity, Urine 1.015 (1.002-1.030); Urine Bilirubin Dipstick Negative (Negative); Urine Clarity Cloudy (Clear); Urine Urobilinogen Normal (Normal)
[2020-08-31 19:14] LABS: Bacteria 2+ /hpf (None Seen); Red Blood Cells-Urine 0-5 SEEN /hpf (0-5); Renal Epithelial Cells 0-5 SEEN /hpf (0-5); Squamous Epithelial Cells - UA 5-10 SEEN /hpf (5-10); White Blood Cells >100 SEEN /hpf (0-5)
[2020-08-31 19:15] LABS: Calcium Oxalate Crystals Ur RARE /hpf (<or=2+)
[2020-08-31 21:05] VITALS: BP 115/73; PULSE 101; RESP 16; TEMP 36.6; O2SAT 98
[2020-08-31] MEDS: Ibuprofen 600 MG Tablet PO (21:52)
[2020-08-31] MEDS: hydrOXYzine PAM 25 MG Capsule 50 MG PO (21:52)
[2020-08-31] MEDS: Ceftriaxone 1 GM/50 ML BAG IV (21:52)
[2020-09-01 03:18] VITALS: BP 109/75; PULSE 93; RESP 16; TEMP 36.6; O2SAT 99
[2020-09-01] MEDS: Acetaminophen 500 MG Tablet PO (03:27)
[2020-09-01] MEDS: Buprenorphine HCl 2 MG TAB.SUBL SL (03:27)
[2020-09-01] MEDS: 0.9% Saline Lock 10 ML Syringe IV (05:48)
[2020-09-01] MEDS: Mupirocin Ointment 22gm Tube 1 APPLIC TOPICAL (05:49)
[2020-09-01 07:43] VITALS: O2SAT 98
[2020-09-01 09:24] VITALS: BP 118/69; PULSE 89; RESP 16; TEMP 36.5; O2SAT 95
--- NOTE | 2020-09-01 10:10 | DCINST_ITS ---
- Discharge Diagnoses Current Active Problems: Current Active and Chronic Problems Desire for detoxification (Acute) Opiate withdrawal (Chronic) Tobacco use (Chronic) Elevated LFTs (Chronic) Anemia (Chronic) Severe protein-calorie malnutrition (Chronic) History of hepatitis C (Chronic) History of heroin use (Chronic) History of methamphetamine use (Chronic) Hepatitis (Chronic) You will use the following diet at home:: No restrictions Discharge Activity: Return to Normal Activity Allergies/Adverse Reactions: Allergies No Known Allergies Allergy (Verified 08/29/20 12:01) Medications to take at Discharge Aripiprazole [Abilify] 10 mg PO DAILY #30 tablet 09/01/20 Cephalexin [Keflex] 500 mg PO Q8 #21 capsule 09/01/20 Ferrous Sulfate 325 mg PO 1200,1700 #60 tablet 09/01/20 The following prescriptions were given: Aripiprazole [Abilify] 10 mg PO DAILY #30 tablet Transmission Status: Pending to [employer] #30 Ferrous Sulfate 325 mg PO 1200,1700 #60 tablet Transmission Status: Pending to [employer] #30 Cephalexin [Keflex] 500 mg PO Q8 #21 capsule Transmission Status: Pending to [employer] #30 Primary Care Physician: Melinda Monge NP, RO[employer] GENERAL MANAGER-C [Primary Care Provider] - Please follow up with your Primary Care Physician in: 1 Week Test Results: Test results from this visit will be discussed in further detail at your follow- up appointment, if applicable. Proposed Discharge Date: 09/01/20
--- NOTE | 2020-09-01 10:12 | DS.PCM_ITS ---
Discharge Date and Diagnosis - Problem List Patient Problems: Active and Suspected Problems Desire for detoxification (Acute) Date of Admission: 08/29/20 Date of Discharge: 09/01/20 - Primary Discharge Diagnosis Acute Problems: Active Problems 1. Acute opioid withdrawal 2. Polysubstance abuse with history of IV drug use 3. Acute UTI 4. History of hepatitis C, chronic-outpatient follow 5. Chronic microcytic anemia, iron deficiency 6. Chronic elevated LFT 7. Severe protein calorie malnutrition 8. Picking behavior, diffuse scabbing/excoriation 9. Tobacco dependence 10. Bipolar disorder - Secondary Discharge Diagnosis Chronic Problems: Chronic Problems Opiate withdrawal (Chronic) Tobacco use (Chronic) Elevated LFTs (Chronic) Anemia (Chronic) Severe protein-calorie malnutrition (Chronic) History of hepatitis C (Chronic) History of heroin use (Chronic) History of methamphetamine use (Chronic) Hepatitis (Chronic) [facility] None Procedures: None Summary of Care Provided: The patient is a 35 year old F admitted 08/29/20 due to acute opioid withdrawal. 1. Acute opioid withdrawal-medical stabilization per protocol. Completed Buprenorphine taper. [facility] consulted. Patient currently has a warrant out for her arrest and therefore unable to admit to [facility] for residential treatment. Outpatient follow up. 2. Polysubstance abuse with history of IV drug use-tox screen positive for amphetamines, methamphetamine and cannabinoids. Plan per above. 3. Acute UTI-discharged on Keflex to complete course. 4. History of hepatitis C, chronic-outpatient follow-up following 6 months sobriety. 5. Chronic microcytic anemia, iron deficiency-stable. Continue iron supplementation. 6. Chronic elevated LFT-trended down. Hepatitis panel completed. Hepatitis a and B antibody positive indicating prior infection, IgM negative. Hepatitis C Ab elevated indicating chronic hep C. Outpatient follow-up as noted above. 7. Severe protein calorie malnutrition-dietitian consulted during admission, continue dietary supplement per dietitian recommendation. 8. Picking behavior, diffuse scabbing/excoriation-Bactroban to affected areas. 9. Tobacco dependence-encouraged cessation. 10. Bipolar disorder-discharged on Abilify with further outpatient follow-up. General: Alert, Oriented x3, Cooperative HEENT: Atraumatic, PERRLA, EOMI, Normocephalic Neck: Supple, No JVD, Negative Carotid Bruits Lungs: Clear to auscultation, Normal air movement Cardiovascular: Regular rate, No murmurs Abdomen: Bowel Sounds Present, Soft, Non Tender Extremities: No clubbing, No cyanosis, No edema, Capillary Refill Less than 3 Seconds Skin: No rashes, No breakdown, - - Diffuse scabbing and excoriations, picking behavior. Musculoskeletal: No Tenderness to Palpation of Joints or Extremities Neurological: Cranial nerves II-XII grossly intact, Neuro grossly intact Psych/Mental Status: Normal Affect, Appropriate Patient seen and examined prior to discharge. Physical assessment as noted above. Patient is stable for discharge with follow up recommendations as noted above. This patient was seen by JAREN Terry under the supervision of Dr. Jain. Patient Problems: Active and Suspected Problems Desire for detoxification (Acute) - Physical Exam Vitals/I&O's: Vital Signs Temp Pulse Resp BP Pulse Ox 97.7 F L 89 16 118/69 95 09/01/20 09:24 09/01/20 09:24 09/01/20 09:24 09/01/20 09:24 09/01/20 09:24 Oxygen Delivery Method Room Air Weight: 114 lb 10.246 oz Body Mass Index (BMI) 20.9 Intake and Output for Last 24 Hours 08/30/20 08/31/20 09/01/20 23:59 23:59 23:59 Intake Total 50 / 50 Balance 50 / 50 Laboratory Results 08/29/20 12:20: Hepatitis A IgM Ab Negative, Hepatitis A Ab Total Positive H, Hep Bs Antigen Negative, Hep B Core Total Ab Positive H, Hep B Core IgM Ab Negative, Hepatitis C Ab Confirm >11.0 H 08/31/20 18:05: Urine Color Straw, Urine Clarity Cloudy, Urine pH 7.0, Ur Specific [place] 1.015, Urine Protein Negative, Urine Glucose (UA) Normal, Urine Ketones Negative, Urine Occult Blood 10 H, Urine Nitrite Negative, Urine Bilirubin Negative, Urine Urobilinogen Normal, Ur Leukocyte Esterase 500 H, Urine RBC 0-5 SEEN, Urine WBC >100 SEEN, Ur Squamous Epith Cells 5-10 SEEN, Ur Renal Epithelial Cell 0-5 SEEN, Calcium Oxalate Crystal RARE, Urine Bacteria 2+, Urine Mucus 0 SEEN Current Medications Acetaminophen (Acetaminophen 500 Mg Tablet) 500 mg PO Q4H PRN PRN PRN Reason: Temp > 100.4 F, pain -03/03 Last Admin: 09/01/20 03:27 Dose: 500 mg Documented by: Al Hydroxide/Mg Hydroxide (Mag Hydrox/Al Hydrox/Simeth 30 Ml Udc) 30 ml PO Q6H PRN PRN PRN Reason: dyspesia Albuterol Sulfate (Albuterol 2.5 Mg/3 Ml Vial.Neb.) 2.5 mg INHALATION Q2H PRN PRN PRN Reason: Dyspnea, wheezing Aripiprazole (Aripiprazole 10 Mg Tablet) 10 mg PO DAILY GWEN Bisacodyl (Bisacodyl 10 Mg Suppository) 10 mg RC DAILY PRN PRN Reason: Constipation Buprenorphine HCl (Buprenorphine Hcl 2 Mg Tab.Subl) 2 mg SL Q12H GWEN; Taper Stop: 09/01/20 15:59 Last Admin: 09/01/20 03:27 Dose: 2 mg Documented by: Clonidine (Clonidine Hcl 0.1 Mg Tablet) 0.1 mg PO Q8H PRN PRN PRN Reason: RESTLESSNESS Last Admin: 08/29/20 17:01 Dose: 0.1 mg Documented by: Dicyclomine HCl (Dicyclomine 10 Mg Capsule) 20 mg PO Q6H PRN PRN PRN Reason: Abdominal Discomfort Last Admin: 08/29/20 17:02 Dose: 20 mg Documented by: Ferrous Sulfate (Ferrous Sulfate 325 Mg Tablet) 325 mg PO 1200,1700 [facility] Last Admin: 08/31/20 17:41 Dose: 325 mg Documented by: Hydralazine HCl (Hydralazine 20 Mg/Ml Vial) 10 mg IV Q4H PRN PRN PRN Reason: SBP > 160 Hydroxyzine Pamoate (Hydroxyzine Jaymie 25 Mg Capsule) 50 mg PO Q6H PRN PRN PRN Reason: mild anxiety Last Admin: 08/31/20 21:52 Dose: 50 mg Documented by: Ceftriaxone Sodium (Rocephin) 1 gm in 50 mls @ 100 mls/hr IV Q24H [facility] Last Infusion: 08/31/20 22:35 Dose: Infused Documented by: Sodium Chloride () 250 mls @ 15 mls/hr IV .[id number] PRN PRN Reason: Saline Flush Last Admin: 09/01/20 05:48 Dose: 15 mls/hr Documented by: Sodium Chloride () 250 mls @ 15 mls/hr IV .[id number] PRN PRN Reason: Additional IVPB Infusion Ibuprofen (Ibuprofen 600 Mg Tablet) 600 mg PO Q8H PRN PRN PRN Reason: PAIN 1-10 Last Admin: 08/31/20 21:52 Dose: 600 mg Documented by: Loperamide HCl (Loperamide 2 Mg Capsule) 2 mg PO Q4H PRN PRN PRN Reason: LOOSE STOOLS Methocarbamol (Methocarbamol 750 Mg Tablet) 1,500 mg PO Q6H PRN PRN PRN Reason: MUSCLE SPASM Last Admin: 08/31/20 21:52 Dose: 1,500 mg Documented by: Mupirocin (Mupirocin Ointment 22gm Tube) 1 applic TOPICAL TID [facility]; Protocol Last Admin: 09/01/20 05:49 Dose: 1 applic Documented by: Nicotine (Nicotine 21 Mg Patch) 21 mg TD DAILY [facility] Last Admin: 09/01/20 09:41 Dose: 21 mg Documented by: Nutritional Formula (Lactose Free) (Ensure Enlive 120 Ml Liquid) 120 ml PO 4X/DAY [facility] Last Admin: 09/01/20 09:40 Dose: 120 ml Documented by: Ondansetron HCl (Ondansetron 8 Mg Tablet) 8 mg PO Q8H PRN PRN PRN Reason: NAUSEA Senna (Senna Tablet) 2 tablet PO QHS PRN PRN Reason: Constipation Sodium Chloride (0.9% Saline Lock 10 Ml Syringe) 10 - 40 ml IV UD PRN PRN Reason: SALINE FLUSH Last Admin: 09/01/20 05:48 Dose: 20 ml Documented by: Sodium Chloride (0.9% Saline Lock 10 Ml Syringe) 10 - 40 ml IV UD PRN PRN Reason: SALINE FLUSH Trazodone HCl (Trazodone 100 Mg Tablet) 100 mg PO QHS PRN PRN PRN Reason: INSOMNIA Last Admin: 08/30/20 00:07 Dose: 100 mg Documented by: Discharge Diet: No Restrictions Discharge Activity: Return to Normal Activity Home Medications: Medications to take at Discharge Aripiprazole [Abilify] 10 mg PO DAILY #30 tablet 09/01/20 Cephalexin [Keflex] 500 mg PO Q8 #21 capsule 09/01/20 Ferrous Sulfate 325 mg PO 1200,1700 #60 tablet 09/01/20 Following Prescriptions Were Given to Patient: Aripiprazole [Abilify] 10 mg PO DAILY #30 tablet Transmission Status: Pending to [facility] #30 Ferrous Sulfate 325 mg PO 1200,1700 #60 tablet Transmission Status: Pending to [facility] #30 Cephalexin [Keflex] 500 mg PO Q8 #21 capsule Transmission Status: Pending to [facility] #30 Primary Care Physician: Melinda Monge NP, VIS[employer] MERCHANDISING MANAGER-C [Primary Care Provider] - Please follow up with your Primary Care Physician in: 1 Week Disposition: Home Minutes spent on discharge:: 35 Patient Condition:: Stable Medical Necessity - Tobacco Use Smoking Status: Current every day smoker Tobacco Use: Cigarettes Meaningful Use Info Meaningful Use Diagnoses (Choose all that apply): None applicable
[2020-09-01] MEDS: ARIPiprazole 10 MG Tablet PO (11:06)
[2020-09-01] MEDS: Ferrous Sulfate 325 MG Tablet PO (11:07)
--- NOTE | 2020-09-03 14:31 | CASEMGMT ---
Social Work Note SW received message from Vikki at [facility] requesting H+P and Discharge instructions be faxed to [facility]. JULIEN faxed requested documents to [facility]. Ngozi Ram [employer], [employer]
== END 2020-09-01 11:20 | disposition home or self-care (01) ==
LOC: ED 14:27 → MS3 08-30 07:15
PROVIDERS: Nurse Practitioner Family; Admitting Provider Family Medicine; Emergency Provider Emergency Medicine; PCP Nurse Practitioner Family; Visit Provider Internal Medicine
DX: F11.23 Opioid dependence with withdrawal (principal); E43 Unspecified severe protein-calorie malnutrition; F14.10 Cocaine abuse, uncomplicated; F15.90 Other stimulant use, unspecified, uncomplicated; F12.90 Cannabis use, unspecified, uncomplicated; F17.210 Nicotine dependence, cigarettes, uncomplicated; D50.9 Iron deficiency anemia, unspecified; E87.6 Hypokalemia; F31.9 Bipolar disorder, unspecified; R79.89 Other specified abnormal findings of blood chemistry; N39.0 Urinary tract infection, site not specified; Z68.21 Body mass index [BMI] 21.0-21.9, adult; Z86.19 Personal history of other infectious and parasitic diseases; Z59.0 Homelessness; F42.4 Excoriation (skin-picking) disorder
CPT/HCPCS: 36415; 80053; 80307; 81001; 82077; 82607; 82728; 82746; 83540; 83550; 83735; 84703; 85025; 85027; 86703; 86704; 86705; 86706; 86708; 86709; 86803; 87077; 87086; 87088; 87186; 87340; 97802; 99283; H0012; J7050; A4216

== ENCOUNTER 2020-10-27 14:10 | Emergency (ER) | payer MEDICAID, SELFPAY ==
[2020-10-27 14:12] VITALS: BP 134/85; PULSE 136; RESP 20; TEMP 36; O2SAT 96; BMI 20.7
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
[2020-10-27] MEDS: Cefazolin 1 GM/5 ML Vial IM (15:13)
--- NOTE | 2020-10-27 19:25 | ED.RN ---
PATIENT CALLED IN STAYING THAT SHE LEFT HER PRESCRIPTION IN A FRIENDS CAR AND NOT ABLE TO GET THEM BACK. SPOKE TO DR. KEYS NEW ORDER TO BE GIVEN AT THIS TIME [facility] TO [facility] TO BE F[facility]
== END 2020-10-27 15:45 | disposition home or self-care (01) ==
LOC: ED 14:46
PROVIDERS: Emergency Provider Emergency Medicine
DX: L30.9 Dermatitis, unspecified (principal); F17.200 Nicotine dependence, unspecified, uncomplicated
CPT/HCPCS: 96372; 99282

== ENCOUNTER 2020-12-09 01:19 | Observation (INO) | payer MEDICAID, SELFPAY ==
[2020-12-09] VITALS (11 sets, daily range): BP systolic 98–147; BP diastolic 54–85; PULSE 79–148; RESP 16–18; TEMP 36.6–37.3; O2SAT 98; BMI 20.2; BMI 19.3
--- NOTE | 2020-12-09 01:34 | EX.ED.SAOD ---
HPI History of Present Illness Chief Complaint: Substance Abuse Detail of Chief Complaint: Requesting detox Informant: patient Onset/Context/Timing Onset: Month(s) Context: Gradual Onset Timing: Continuous Narrative Narrative: 35-year-old female history of drug abuse including methamphetamines and heroin. She does shoot up heroin. And did tonight. She also has a history hepatitis C. She has been through detox within the last 6 months. Tonight police and paramedics were called to a reported drug house on the patient. She did not need Narcan. She is requesting detox. She denies any complaints. Prior similar symptoms: Yes Recent Illness/Hospitalization: No [facility] Medical History Anemia History of hepatitis C History of heroin use History of methamphetamine use Severe protein-calorie malnutrition Home Medications aripiprazole 10 mg PO DAILY #30 tablet 09/01/20 [Rx Last Taken Unknown] cephalexin 500 mg PO Q8 #21 capsule 09/01/20 [Rx Last Taken Unknown] ferrous sulfate 325 mg PO 1200,1700 #60 tablet 09/01/20 [Rx Last Taken Unknown] cephalexin 500 mg PO Q6 #40 capsule 10/27/20 [Rx Last Taken Unknown] cephalexin 500 mg PO Q6H 10 Days #40 cap 10/27/20 [Rx Last Taken Unknown] mupirocin 1 applic TOPICAL TID PRN 10 Days #1 tube 10/27/20 [Rx Last Taken Unknown] sulfamethoxazole-trimethoprim 1 tab PO BID #20 tablet 10/27/20 [Rx Last Taken Unknown] sulfamethoxazole-trimethoprim [Bactrim] 1 tab PO BID 10 Days #20 tab 10/27/20 [Rx Last Taken Unknown] Allergy/AdvReac Type Severity Reaction Status Date / Time No Known Allergies Allergy Verified 12/09/20 01:28 no surgical history Social History Smoking Status: Current every day smoker tobacco type: cigarettes substance use type: crack/cocaine, IV drugs and methamphetamine ROS ROS ED ROS Narrative Denies recent illness. Review of Systems ROS Unobtainable: Denies due to encephalopathy Constitutional Constitutional ED: Denies chills or fever(s) Eyes Eyes: Denies change in vision ENT ENT ED: Denies ear pain or sore throat Cardiovascular Cardiovascular: Denies chest pain Respiratory/Chest Respiratory/Chest: Denies dyspnea Gastrointestinal Gastrointestinal: Denies abdominal pain, diarrhea, nausea or vomiting Genitourinary Genitourinary ED: Denies dysuria Musculoskeletal Musculoskeletal: Denies myalgias Integumentary Denies rash Neurologic Neurologic: Denies headache(s) Psychiatric Psychiatric: Denies depression Endocrine Endocrinology: Denies polyuria Hematologic/Lymphatic Hematologic/Lymphatic: Denies easy bruising Allergic/Immunologic Allergic/Immunologic ED: Denies urticaria EXAM Physical Exam Narrative Exam Narrative: Vital signs stable afebrile. Patient is crying and emotionally upset. She is in no distress. H EENT exam unremarkable. Poor dentition. Neck nontender no lymphadenopathy. Lungs clear to auscultation bilaterally. Heart regular rhythm no murmur appreciated. Abdomen soft nontender normal bowel sounds no peritoneal signs. Moving all four extremities. Nontender. No edema. Track zavala both upper extremities. No cellulitis. No abscess. Back nontender. Neurologically she is awake alert with no focal motor deficits. Const Vital Signs: 12/09/20 01:21 Temperature 99.1 F Temperature Source Oral Pulse Rate 148 H Respiratory Rate 18 Blood Pressure 147/85 H Blood Pressure Mean 105 Pulse Ox 98 Oxygen Delivery Method Room Air Positive well nourished and well developed General Appearance ED: well developed and NAD HEENT Denies moist mucous membranes atraumatic; Negative for trauma or tenderness Eyes PERRL and EOMs intact bilaterally Neck no lymphadenopathy, supple and no JVD Thyroid: Negative for tender Lymph Lymphatic: no lymphadenopathy noted Chest Wall inspection of chest normal and palpation of chest normal Resp normal respiratory effort and clear to auscultation bilaterally Cardio regular rhythm, S1 normal heart sound, S2 normal heart sound and no murmurs Rate: tachycardic GI soft to palpation, non-tender, non-distended and no masses Inspection: Negative for abdominal distention Palpation: Negative for tender, guarding or rigid Back/Spine no CVA tenderness Extremity Extremity Narrative: Bilateral upper extremity track zavala but no acute infection. Moving all four extremities. No edema. General Extremety ED: Negative for edema, tenderness or other findings General Extremity: Negative for edema or other findings Neuro oriented x3 and CN's II-XII intact bilaterally Sensorium / Orientation: alert, oriented to person, oriented to place and oriented to time Motor Exam: strength 5/5 throughout Psych Mood & Affect: depressed, anxious and tearful Skin Skin Narrative: Track zavala. Lesions: no lesions Rashes: no rashes MDM MDM MDM Narrative Medical decision making narrative: 35-year-old female history of drug abuse. Requesting detox. Exam unremarkable. Discharge Plan Triage Chief Complaint: Substance Abuse ED Provider: Shaheen Rapp Dx/Rx/DC Orders Clinical Impression: Desire for detoxification, Active intravenous drug use Instructions: ED Drug Abuse, ED Opiate Abuse Prescriptions: No Action ferrous sulfate 325 MG tablet 325 mg PO 1200,1700 Qty: 60 RF: 0 aripiprazole 10 MG tablet 10 mg PO DAILY Qty: 30 RF: 0 cephalexin 500 MG capsule 500 mg PO Q8 Qty: 21 RF: 0 sulfamethoxazole-trimethoprim 800-160 mg tablet 1 tab PO BID Qty: 20 RF: 0 cephalexin 500 mg capsule 500 mg PO Q6 Qty: 40 RF: 0 mupirocin 2 % ointment 1 applic topical TID PRN (Reason: rash) 10 Days Qty: 1 RF: 0 cephalexin 500 mg capsule 500 mg PO Q6H 10 Days Qty: 40 RF: 0 sulfamethoxazole-trimethoprim [Bactrim] 400-80 mg tablet 1 tab PO BID 10 Days Qty: 20 RF: 0 Primary Care Provider: Care Physician,No Primary Referrals: Care Physician,No Primary [Primary Care Provider] - Disposition Disposition: Acute Care [facility]
--- NOTE | 2020-12-09 01:40 | HP.PCM.HOS_ITS ---
HPI - General General Date of Admission: 12/09/20 HPI Narrative SACHI BRADFORD, is a 35 F with a PMH as outlined who presents via the ED on 12/09/2020 for acute heroin withdrawal. She uses methamphetamines and heroin and uses it IV. She last used it the night before admission. She also a history of hepatitis C. She had no active complaints and denied any fever, chills, cough, chest pain, nausea, vomiting or diarrhea. Review of systems is otherwise negative. Vitals in the ED were BP of 147/85, HI of148, RR of 18 and temperature of 99.1F. No labs were ordered in the ED. She is being admitted to be managed for acute opioid withdrawal. [facility] Medical History Anemia History of hepatitis C History of heroin use History of methamphetamine use Severe protein-calorie malnutrition Home Medications aripiprazole 10 mg PO DAILY #30 tablet 09/01/20 [Rx Last Taken Unknown] cephalexin 500 mg PO Q8 #21 capsule 09/01/20 [Rx Last Taken Unknown] ferrous sulfate 325 mg PO 1200,1700 #60 tablet 09/01/20 [Rx Last Taken Unknown] cephalexin 500 mg PO Q6 #40 capsule 10/27/20 [Rx Last Taken Unknown] cephalexin 500 mg PO Q6H 10 Days #40 cap 10/27/20 [Rx Last Taken Unknown] mupirocin 1 applic TOPICAL TID PRN 10 Days #1 tube 10/27/20 [Rx Last Taken Unknown] sulfamethoxazole-trimethoprim 1 tab PO BID #20 tablet 10/27/20 [Rx Last Taken Unknown] sulfamethoxazole-trimethoprim [Bactrim] 1 tab PO BID 10 Days #20 tab 10/27/20 [Rx Last Taken Unknown] Allergy/AdvReac Type Severity Reaction Status Date / Time No Known Allergies Allergy Verified 12/09/20 01:28 Social History Smoking Status: Current every day smoker tobacco type: cigarettes substance use type: crack/cocaine, IV drugs and methamphetamine ROS Constitutional Constitutional: Denies anorexia, chills, fatigue, malaise or weakness Eyes Eyes: Denies blurry vision or double vision ENT HEENT: Denies headache(s) or sore throat Cardiovascular Cardiovascular: Denies chest pain, dyspnea on exertion, edema, lightheadedness, orthopnea or palpitations Respiratory/Chest Respiratory/Chest: Denies cough, dyspnea, productive cough or shortness of breath at rest Gastrointestinal Gastrointestinal: Denies abdominal pain, constipation, diarrhea, nausea or vomiting Genitourinary Genitourinary: Denies burning urination, nocturia or urinary incontinence Musculoskeletal Musculoskeletal: Denies arthralgias or joint stiffness Neurologic Neurologic: Denies confusion, dizziness, focal weakness, numbness, seizures or syncope Psychiatric Psychiatric: Denies anxiety Endocrine Endocrinology: Denies change in body appearance Hematologic/Lymphatic Hematologic/Lymphatic: Denies anemia Vital Signs Vital Signs Vital Signs: 12/09/20 01:21 Temperature 99.1 F Temperature Source Oral Pulse Rate 148 H Respiratory Rate 18 Blood Pressure 147/85 H Blood Pressure Mean 105 Pulse Ox 98 Oxygen Delivery Method Room Air Weight Weight: 110 lb 7.225 oz Body Mass Index (BMI) 20.2 Physical Exam Const alert and oriented x3 General Appearance: cooperative Orientation / Consciousness: lethargic HEENT normocephalic, head/scalp atraumatic, hearing grossly normal bilaterally and moist oral mucous membranes Eyes PERRL, EOMs intact bilaterally and conjunctivae normal Neck no lymphadenopathy and supple Resp normal respiratory effort, no retractions, no use of accessory muscles and clear to auscultation bilaterally Cardio regular rhythm, S1 normal heart sound, S2 normal heart sound and no murmurs Cardio Narrative: tachycardic GI normal to inspection, nondistended, normoactive bowel sounds, soft to palpation, non-tender and non-distended Extremity normal to inspection, full ROM and no clubbing, cyanosis or edema Peripheral Pulses: Yes pulses 2+ throughout Skin Skin Narrative: has multiple healing superficial ulcerations over her face, ears and upper as well as lower extremities Neuro oriented x3 Neuro Narrative: lethargic Sensorium / Orientation: awake and alert Psych affect normal Results Lab / Micro Data Result Diagrams: 12/09/20 01:56 12/09/20 01:56 Assessment & Plan Assessment/Plan (1) Opiate withdrawal: (2) Desire for detoxification: PLAN: #Acute opioid withdrawal * admit to med surg * CBC, CMP and urine tox are pending * start on opiate withdrawal protocol with buprenorphine * monitor CINA score * adjunctive medication for symptomatic relief * #Sinus tachycardia * this is likely due to methamphetamine intake. Patient says she took IV methamphetamine just before coming to e ED * will get EKG * IV labetalol prn for tachycardia; this will also help with elevated BP as her BP was up at 147/85 * #Nicotine dependence: counseled to quit #History of hepatitis C: treatment naive. Counseled that she would need to be clean for at least 6 months to qualify for treatment DVT prophylaxis: low risk. encourage to ambulate Charges/Coding Visit Charges Inpatient E&M: 68756 Init Hosp L3
[2020-12-09 02:03] LABS: Absolute Lymphocyte Count 2.92 X10^3/uL (0.83-4.51); Absolute Neutrophil Count 10.1 X10^3/uL (2.0-7.7); Basophil# 0.06 X10^3/uL; Basophil% 0.4 % (0-1); Differential Indicated SCAN CRITERIA MET; Eosinophil# 0.11 X10^3/uL; Eosinophils% 0.7 % (0-5); Hematocrit 33.3 % (37-47); Hemoglobin 10.6 g/dL (12.0-15.0); Lymphocyte # 2.92 X10^3/ul (0.83-4.51); Lymphocyte % 19.6 % (19-41); Mean Corp Hgb Conc 31.8 g/dL (32-36); Mean Corpuscular Hgb 26.5 pg (27.0-32.0); Mean Corpuscular Volume 83.3 fL (81-99); Mean Platelet Vol. 9.3 fl (6.2-12.0); Monocyte# 1.49 X10^3/uL; NRBC Flagged by Analyzer 0 % (0-5); Neutrophil # 10.12 X10^3/uL (2.7-7.7); POSITIVE MORPHOLOGY YES; Platelet Count 347 K/mm3 (150-450); RBC Distribution Width CV 15.3 % (11.6-14.6); RBC Distribution Width SD 46.9 fl (35.1-43.9); White Blood Count 14.9 K/mm3 (4.4-11.0)
--- NOTE | 2020-12-09 02:17 | EKG12_ITS ---
Test Reason : SUBSTANCE ABUSE Blood Pressure : / mmHG Vent. Rate : 110 BPM Atrial Rate : 110 BPM P-R Int : 128 ms QRS Dur : 074 ms QT Int : 318 ms P-R-T Axes : 056 076 038 degrees QTc Int : 430 ms Sinus tachycardia Possible Left atrial enlargement Borderline ECG When compared with ECG of 17-OCT-2019 20:08, Nonspecific T wave abnormality has replaced inverted T waves in Inferior leads Confirmed by BILL SEVERINO, DEBORA ([id number]), editor school photograph BERNICE STOVALL ([id number]) on 12/14/2020 10:35:36 AM Referred By: YADIEL Confirmed By:DEBORA KHAN MD
[2020-12-09 02:19] LABS: ALB/GLOB Ratio 0.5 RATIO (0.9-2.4); AST(SGOT) 42 U/L (15-37); Alanine Aminotransfer ALT/SGPT 53 U/L (13-56); Albumin, Serum 2.7 g/dL (3.2-5.0); Alkaline Phosphatase 112 U/L (45-117); Anion Gap 8 (5-15); BUN 11 mg/dL (7-18); BUN/Creat Ratio 12.9 RATIO (10-20); Calcium,Total 8.3 mg/dL (8.5-10.1); Chloride 103 mmol/L (98-107); Creatinine, Serum 0.85 mg/dL (0.55-1.02); EST Glomerular Filtration Rate 80 mL/min (>60); Est Glom Filt Rate - Afr Amer 97 mL/min (>60); Estimated Creatinine Clearance 72.37 ml/min; Globulin 5.3 g/dL (2.2-4.2); Glucose 127 mg/dL (74-106); Potassium 3.5 mmol/L (3.5-5.1); Sodium Level 135 mmol/L (136-145)
[2020-12-09] MEDS: Buprenorphine HCl 2 MG TAB.SUBL SL ×3 (04:36→20:21)
[2020-12-09] MEDS: Dicyclomine 10 MG Capsule 20 MG PO ×2 (04:36→20:21)
--- NOTE | 2020-12-09 13:10 | PN.HOSP_ITS ---
Hospitalist Note Patient is a 35-year-old female who presented to the emergency department [facility] on the a.m. of 12/09/2020 requesting detox for opiate abuse. She admitted to a history of heroin and methamphetamine use. She states that her last use was the night before admission and her use is typically IV. She has known history of hepatitis C. She was admitted and placed on a Suboxone taper. HIV status is pending. 180 to evaluate.
[2020-12-09] MEDS: Ondansetron 8 MG Tablet PO (17:30)
[2020-12-09] MEDS: Acetaminophen 325 MG Tablet 650 MG PO (20:21)
[2020-12-09] MEDS: Gabapentin 300 MG Capsule PO (20:22)
[2020-12-10] VITALS (9 sets, daily range): BP systolic 98–110; BP diastolic 49–76; PULSE 73–99; RESP 12–18; TEMP 36.4–36.8; O2SAT 95–97
[2020-12-10] MEDS: Ondansetron 8 MG Tablet PO (04:13)
[2020-12-10] MEDS: Buprenorphine HCl 2 MG TAB.SUBL SL ×3 (04:13→20:40)
[2020-12-10 08:17] LABS: HIV - WCH Non-Reactive (Nonreactive)
--- NOTE | 2020-12-10 09:23 | ADDICTION ---
This report writer met with PT to conduct ASAM, MSE, DUDIT assessments and to plan for d/c. All assessments completed. PT plans to d/c to a friends house who is taking her to a treatment facility called [facility] in [place]. No transportation needs identified.
--- NOTE | 2020-12-10 12:34 | PN.HOSP_ITS ---
Documented by User: Aruna García GAS DISTRIBUTION SUPERVISOR, GAS DISTRIBUTION SUPERVISOR-C 12/10/20 12:46 Subjective Subjective Patient seen and examined. Drowsy during exam however awakens briefly, asking for pain medication. Denies withdrawal symptoms or other complaints. Objective Data Objective Data Vital Signs: Vital Signs Temp Pulse Resp BP Pulse Ox 97.6 F L 99 18 101/64 97 12/10/20 08:10 12/10/20 11:00 12/10/20 08:10 12/10/20 08:10 12/10/20 08:10 Oxygen Delivery Method Room Air Weight: 105 lb 13.15 oz Body Mass Index (BMI) 19.3 Intake & Output: Intake and Output for Last 24 Hours 12/08/20 12/09/20 12/10/20 23:59 23:59 23:59 Intake Total 600 / 600 240 / 240 Output Total 0 / 0 Balance 600 / 600 240 / 240 Lab / Micro Data Result Diagrams: 12/09/20 01:56 12/09/20 01:56 Labs: Laboratory Results - last 24 hr 12/09/20 01:56: HIV 1&2 Antibody Non-Reactive Physical Exam Const Constitutional Narrative: Drowsy, unkempt HEENT normocephalic and moist oral mucous membranes Eyes PERRL, EOMs intact bilaterally and conjunctivae normal Neck no lymphadenopathy Resp normal respiratory effort and clear to auscultation bilaterally Cardio regular rate, regular rhythm and no murmurs Peripheral Pulses: pulses 2+ throughout GI normal to inspection, nondistended, normoactive bowel sounds, non-tender and non-distended Extremity normal to inspection Skin no rashes or lesions noted Skin Narrative: Diffuse scabbing and excoriations, picking behavior. Lesions: no lesions Rashes: no rashes Trauma: no lacerations or abrasions Neuro CN's II-XII intact bilaterally, no focal motor deficits, no sensory deficits noted and deep tendon reflexes 2+ bilaterally Psych mental status grossly normal and affect normal Assessment & Plan Assessment/Plan (1) Opiate withdrawal: PLAN: 1. Acute opioid withdrawal-medical stabilization per protocol. Buprenorphine taper. [employer] consulted. Per [employer] personal financial representative, plan for discharge to friend's house who is taking her to a treatment facility in [place] at discharge. 2. Polysubstance abuse with history of IV drug use- Plan per above. 3. Bipolar disorder-on Abilify, needs further outpatient follow up. 4. History of hepatitis C, chronic-outpatient follow-up following 6 months sobriety. 5. Chronic microcytic anemia, iron deficiency-stable. Continue iron supplementation. 6. Chronic elevated LFT-trended down. Hepatitis panel completed during recent admission. Hepatitis a and B antibody positive indicating prior infection, IgM negative. Hepatitis C Ab elevated indicating chronic hep C. Outpatient follow- up as noted above. 7. Severe protein calorie malnutrition-dietitian consulted. 8. Picking behavior, diffuse scabbing/excoriation-no evidence of infection, may apply Bactroban to areas of concern. 9. Tobacco dependence-encouraged cessation. DVT prophylaxis- low risk, not indicated This patient was seen by JAREN Terry under the supervision of Dr. Lizarraga. Documented by User: Dr. Jaimee Lizarraga MD 12/10/20 18:02 Objective Data Lab / Micro Data Result Diagrams: 12/09/20 01:56 12/09/20 01:56 Charges/Coding Addendum Addendum: This patient was seen in conjunction with Aruna García. I have independently interviewed and examined the patient and reviewed pertinent historical, laboratory, and other data. I have reviewed her note and concur with her documentation Patient was seen and examined. No new complaints. Physical Exam: Gen: Appears unkempt, not pale, not jaundiced, diffuse scabbing and excoriations CVS:HS I +II, regular, no murmurs RESP: Diminished at lung bases GI: BS present and normal, soft, nontender, no palpable organs EXT:No edema ASSESSMENT: 1. Acute opioid withdrawal 2. Polysubstance abuse 3. Bipolar disorder 4. Chronic hep C 5. Chronic anemia 6. Severe protein Calorie malnutrition Plan: Continue on buprenorphine withdrawal protocol Visit Charges Inpatient E&M: 31108 Subs Hosp L2
[2020-12-10] MEDS: Dicyclomine 10 MG Capsule 20 MG PO (12:46)
--- NOTE | 2020-12-10 15:01 | CHAPLAIN ---
Type of Pastoral Visit _x__ Initial Visit ___ Follow-up Visit ___ On-call Visit ___ General Patient Visit ___ Spiritual Assessment ___ Family Conference ___ Bereavement ___ Rapid Response ___ Code Blue ___ Other (describe below) Pastoral Care Referral From _x__ Patient ___ Family ___ Nurse ___ Physician ___ Clinical Outcomes Manager ___ Inclusion Teacher ___ Other (describe below) Sacrament/Intervention _x__ Active listening ___ Anointing ___ Anabaptism ___ Bereavement ___ Communion ___ Thuy exploration ___ ___ Life review _x__ Prayer ___ Reconciliation ___ Sacrament of Sick _x__ Supportive presence ___ Wedding ___ Other (describe below) Pastoral Comments patient requests support for necessary life changes; prayer welcomed;
[2020-12-10] MEDS: Acetaminophen 325 MG Tablet 650 MG PO (20:40)
[2020-12-10 21:44] LABS: Mucous, Urine 0 SEEN /hpf (<or=2+)
[2020-12-10 21:46] LABS: Color, Urine Yellow (Yellow); Glucose, Dipstick Normal (Normal); Ketone-Dipstick Negative (Negative); Leukocyte Esterase-Dipstick 500 /ul (Negative); Nitrite-Dipstick Positive (Negative); Occult Blood-Urine 10 /ul (Negative); Protein-Dipstick 15 mg/dl (Negative); Urine Bilirubin Dipstick Negative (Negative); Urine Clarity Sl. Cloudy (Clear); Urine Urobilinogen Normal (Normal)
[2020-12-10 21:52] LABS: Amorphous Sediment 2+ PHOS; Bacteria 2+ /hpf (None Seen); Red Blood Cells-Urine 0-5 SEEN /hpf (0-5); Squamous Epithelial Cells - UA 0-5 SEEN /hpf (5-10); White Blood Cells 50-100 SEEN /hpf (0-5)
[2020-12-10] MEDS: Cephalexin 500 MG Capsule PO (21:57)
[2020-12-11 02:35] VITALS: BP 94/57; PULSE 75; RESP 12; TEMP 37.1; O2SAT 98
[2020-12-11 02:58] VITALS: PULSE 79
[2020-12-11] MEDS: Buprenorphine HCl 2 MG TAB.SUBL SL ×2 (04:45→17:18)
[2020-12-11] MEDS: Cephalexin 500 MG Capsule PO (06:23)
[2020-12-11 07:15] VITALS: PULSE 86
[2020-12-11 08:40] VITALS: BP 109/62; PULSE 93; RESP 18; TEMP 36.6; O2SAT 97
[2020-12-11] MEDS: Ondansetron 8 MG Tablet PO (10:13)
--- NOTE | 2020-12-11 11:04 | PN.HOSP_ITS ---
Documented by User: Aruna García NP, RUBBER CURER-C 12/11/20 11:33 Subjective Subjective Patient seen and examined. Reports dysuria is improved. Remains drowsy however answers questions during assessment. Objective Data Objective Data Vital Signs: Vital Signs Temp Pulse Resp BP Pulse Ox 97.9 F 93 18 109/62 97 12/11/20 08:40 12/11/20 08:40 12/11/20 08:40 12/11/20 08:40 12/11/20 08:40 Oxygen Delivery Method Room Air Weight: 105 lb 13.15 oz Body Mass Index (BMI) 19.3 Intake & Output: Intake and Output for Last 24 Hours 12/09/20 12/10/20 12/11/20 23:59 23:59 23:59 Intake Total 600 / 600 720 / 720 Output Total 0 / 0 Balance 600 / 600 720 / 720 Lab / Micro Data Result Diagrams: 12/09/20 01:56 12/09/20 01:56 Labs: Laboratory Results - last 24 hr 12/10/20 21:36: Urine Color Yellow, Urine Clarity Sl. Cloudy, Urine pH 7.0, Ur Specific [place] 1.010, Urine Protein 15 H, Urine Glucose (UA) Normal, Urine Ketones Negative, Urine Occult Blood 10 H, Urine Nitrite Positive H, Urine Bilirubin Negative, Urine Urobilinogen Normal, Ur Leukocyte Esterase 500 H, Urine RBC 0-5 SEEN, Urine WBC 50-100 SEEN, Ur Squamous Epith Cells 0-5 SEEN, Amorphous Sediment 2+ PHOS, Urine Bacteria 2+, Urine Mucus 0 SEEN Physical Exam Const oriented x3 and no apparent distress Constitutional Narrative: Drowsy Orientation / Consciousness: oriented to person, oriented to place and oriented to time HEENT normocephalic and moist oral mucous membranes Eyes PERRL, EOMs intact bilaterally and conjunctivae normal Neck no lymphadenopathy Resp normal respiratory effort and clear to auscultation bilaterally Cardio regular rate, regular rhythm and no murmurs Peripheral Pulses: pulses 2+ throughout GI normal to inspection, nondistended, normoactive bowel sounds, non-tender and non-distended Extremity normal to inspection Skin no rashes or lesions noted Skin Narrative: Diffuse scabbing and excoriations, picking behavior. Lesions: no lesions Rashes: no rashes Trauma: no lacerations or abrasions Neuro CN's II-XII intact bilaterally, no focal motor deficits, no sensory deficits noted and deep tendon reflexes 2+ bilaterally Psych mental status grossly normal and affect normal Assessment & Plan Assessment/Plan (1) Opiate withdrawal: PLAN: 1. Acute opioid withdrawal-medical stabilization per protocol. Buprenorphine taper. [employer] [facility], plan for discharge to friend's house who is taking her to a treatment facility in [place] at discharge. 2. Polysubstance abuse with history of IV drug use- Plan per above. 3. Acute UTI-prior urine culture grew staph aureus. Nitrofurantoin based on pr ior cultures, repeat culture pending. 4. Bipolar disorder-on Abilify, needs further outpatient follow up. 5. History of hepatitis C, chronic-outpatient follow-up following 6 months sobriety. 6. Chronic microcytic anemia, iron deficiency-stable. Continue iron supplementation. 7. Chronic elevated LFT-trended down. Hepatitis panel completed during recent admission. Hepatitis a and B antibody positive indicating prior infection, IgM negative. Hepatitis C Ab elevated indicating chronic hep C. Outpatient follow- up as noted above. 8. Severe protein calorie malnutrition-dietitian consulted. 9. Picking behavior, diffuse scabbing/excoriation-no evidence of infection, may apply Bactroban to areas of concern. 10. Tobacco dependence-encouraged cessation. DVT prophylaxis- low risk, not indicated This patient was seen by JAREN Terry under the supervision of Dr. Lizarraga. Documented by User: Dr. Jaimee Lizarraga MD 12/11/20 16:26 Objective Data Lab / Micro Data Result Diagrams: 12/09/20 01:56 12/09/20 01:56
[2020-12-11 14:44] VITALS: BP 103/59; PULSE 92; RESP 16; TEMP 36.1; O2SAT 98
--- NOTE | 2020-12-11 15:48 | PCM.DC ---
Discharge Instructions Diet Discharge Diet: No restrictions Activity Discharge Activity: Return to Normal Activity Dressing / Incision Call your doctor if you observe: Shortness of breath, Dizziness and Chest pain Follow Up Care Test Results: Test results from this visit will be discussed in further detail at your follow-up appointment, if applicable. Discharge Plan Admission Admit Date/Time: 12/09/20 01:51 Primary Reason for Your Visit: Opioid detox Attending Provider: Jaimee Lizarraga Primary Care Provider: Care Physician,No Primary Instructions Additional Instructions / Restrictions: Patient Problems: Altered Health Status related to Hospitalization Patient Goals: *Optimal Level of Health *Keep Appointments *Medication Compliance *Remain Safe Discharge Orders/Prescriptions Prescriptions: New cephalexin 500 mg capsule 500 mg PO Q8H Qty: 15 RF: 0 Continued ferrous sulfate 325 MG tablet 325 mg PO 1200,1700 Qty: 60 RF: 0 aripiprazole 10 MG tablet 10 mg PO DAILY Qty: 30 RF: 0 mupirocin 2 % ointment 1 applic topical TID PRN (Reason: rash) 10 Days Qty: 1 RF: 0 Discontinued cephalexin 500 MG capsule 500 mg PO Q8 Qty: 21 RF: 0 sulfamethoxazole-trimethoprim 800-160 mg tablet 1 tab PO BID Qty: 20 RF: 0 cephalexin 500 mg capsule 500 mg PO Q6 Qty: 40 RF: 0 cephalexin 500 mg capsule 500 mg PO Q6H 10 Days Qty: 40 RF: 0 sulfamethoxazole-trimethoprim [Bactrim] 400-80 mg tablet 1 tab PO BID 10 Days Qty: 20 RF: 0 Referrals / Follow Up: Care Physician,No Primary [Primary Care Provider] - In 1 Week Disposition Disposition (needs filled in before D/C Order can be placed): Home, Self Care
--- NOTE | 2020-12-11 16:04 | PCM.DC.SUM ---
Documented by User: Aruna García NP, PRIMING MACHINE OPERATOR-C 12/11/20 16:08 Providers Date of Admission: 12/09/20 Date of Discharge: 12/11/20 Primary Care Physician: No Primary Care Phys Reason For Visit: ACUTE OPIOID WITHDRAWL Diagnosis Discharge Diagnosis (1) Opiate withdrawal: Status: Chronic Code(s): F11.23 - Opioid dependence with withdrawal Medications at Discharge Home Medications aripiprazole 10 mg PO DAILY #30 tablet 09/01/20 ferrous sulfate 325 mg PO 1200,1700 #60 tablet 09/01/20 mupirocin 1 applic TOPICAL TID PRN 10 Days #1 tube 10/27/20 cephalexin 500 mg PO Q8H #15 cap 12/11/20 Hospital Course Operations None Summary of Care Provided Minutes Spent on Discharge: 35 Hospital Course: Patient is a 35-year-old female admitted 12/09/2020 requesting opioid detox. 1. Acute opioid withdrawal-medical stabilization per protocol. Buprenorphine taper completed. [facility], plan for discharge to friend's house who is taking her to a treatment facility in [place] at discharge. 2. Polysubstance abuse with history of IV drug use- Plan per above. 3. Acute E.coli UTI-discharged on Keflex to complete course. 4. Bipolar disorder-on Abilify, needs further outpatient follow up. 5. History of hepatitis C, chronic-outpatient follow-up following 6 months sobriety. 6. Chronic microcytic anemia, iron deficiency-stable. Continue iron supplementation. 7. Chronic elevated LFT-trended down. Hepatitis panel completed during recent admission. Hepatitis a and B antibody positive indicating prior infection, IgM negative. Hepatitis C Ab elevated indicating chronic hep C. Outpatient follow-up as noted above. 8. Severe protein calorie malnutrition-dietitian consulted. Evident by muscle and fat loss, recent significant weight loss, poor oral intake and cachectic appearance. 9. Picking behavior, diffuse scabbing/excoriation-no evidence of infection, may apply Bactroban to areas of concern. 10. Tobacco dependence-encouraged cessation. Physical Exam Const oriented x3 and no apparent distress Constitutional Narrative: Drowsy Orientation / Consciousness: oriented to person, oriented to place and oriented to time HEENT normocephalic and moist oral mucous membranes Eyes PERRL, EOMs intact bilaterally and conjunctivae normal Neck no lymphadenopathy Resp normal respiratory effort and clear to auscultation bilaterally Cardio regular rate, regular rhythm and no murmurs Peripheral Pulses: pulses 2+ throughout GI normal to inspection, nondistended, normoactive bowel sounds, non-tender and non-distended Extremity normal to inspection Skin no rashes or lesions noted Skin Narrative: Diffuse scabbing and excoriations, picking behavior. Lesions: no lesions Rashes: no rashes Trauma: no lacerations or abrasions Neuro CN's II-XII intact bilaterally, no focal motor deficits, no sensory deficits noted and deep tendon reflexes 2+ bilaterally Psych mental status grossly normal and affect normal Patient seen and examined prior to discharge. Physical assessment as noted above. Patient is stable for discharge with follow up recommendations as noted above. This patient was seen by JAREN Terry under the supervision of Dr. Lizarraga. Weight / BMI Weight Weight: 105 lb 13.15 oz Body Mass Index (BMI) 19.3 ABG / Lab / Microbiology Data Result Diagrams: 12/09/20 01:56 12/09/20 01:56 Laboratory: Laboratory Results - last 24 hr 12/10/20 21:36: Urine Color Yellow, Urine Clarity Sl. Cloudy, Urine pH 7.0, Ur Specific [place] 1.010, Urine Protein 15 H, Urine Glucose (UA) Normal, Urine Ketones Negative, Urine Occult Blood 10 H, Urine Nitrite Positive H, Urine Bilirubin Negative, Urine Urobilinogen Normal, Ur Leukocyte Esterase 500 H, Urine RBC 0-5 SEEN, Urine WBC 50-100 SEEN, Ur Squamous Epith Cells 0-5 SEEN, Amorphous Sediment 2+ PHOS, Urine Bacteria 2+, Urine Mucus 0 SEEN Microbiology: Microbiology 12/10/20 21:36 Urine, Clean Catch Urine Culture - Preliminary Presumptive E. coli D/C Instructions Discharge Diet: No restrictions Call your doctor if you observe: Shortness of breath, Dizziness and Chest pain Meaningful Use Info Meaningful Use Diagnoses (Choose all that apply): None applicable Discharge Plan Admission Admit Date/Time: 12/09/20 01:51 Primary Reason for Your Visit: Opioid detox Attending Provider: Jaimee Lizarraga Primary Care Provider: Care Physician,No Primary Instructions Additional Instructions / Restrictions: Patient Problems: Altered Health Status related to Hospitalization Patient Goals: *Optimal Level of Health *Keep Appointments *Medication Compliance *Remain Safe Discharge Orders/Prescriptions Prescriptions: New cephalexin 500 mg capsule 500 mg PO Q8H Qty: 15 RF: 0 Continued ferrous sulfate 325 MG tablet 325 mg PO 1200,1700 Qty: 60 RF: 0 aripiprazole 10 MG tablet 10 mg PO DAILY Qty: 30 RF: 0 mupirocin 2 % ointment 1 applic topical TID PRN (Reason: rash) 10 Days Qty: 1 RF: 0 Discontinued cephalexin 500 MG capsule 500 mg PO Q8 Qty: 21 RF: 0 sulfamethoxazole-trimethoprim 800-160 mg tablet 1 tab PO BID Qty: 20 RF: 0 cephalexin 500 mg capsule 500 mg PO Q6 Qty: 40 RF: 0 cephalexin 500 mg capsule 500 mg PO Q6H 10 Days Qty: 40 RF: 0 sulfamethoxazole-trimethoprim [Bactrim] 400-80 mg tablet 1 tab PO BID 10 Days Qty: 20 RF: 0 Referrals / Follow Up: Care Physician,No Primary [Primary Care Provider] - In 1 Week Disposition Disposition (needs filled in before D/C Order can be placed): Home, Self Care Documented by User: Dr. Jaimee Lizarraga MD 12/11/20 16:24 Providers Date of Admission: 12/09/20 Reason For Visit: ACUTE OPIOID WITHDRAWL Medications at Discharge Home Medications aripiprazole 10 mg PO DAILY #30 tablet 09/01/20 ferrous sulfate 325 mg PO 1200,1700 #60 tablet 09/01/20 mupirocin 1 applic TOPICAL TID PRN 10 Days #1 tube 10/27/20 cephalexin 500 mg PO Q8H #15 cap 12/11/20 ABG / Lab / Microbiology Data Result Diagrams: 12/09/20 01:56 12/09/20 01:56 Discharge Plan Admission Admit Date/Time: 12/09/20 01:51 Primary Reason for Your Visit: Opioid detox Attending Provider: Jaimee Lizarraga Primary Care Provider: Care Physician,No Primary Instructions Additional Instructions / Restrictions: Patient Problems: Altered Health Status related to Hospitalization Patient Goals: *Optimal Level of Health *Keep Appointments *Medication Compliance *Remain Safe Discharge Orders/Prescriptions Prescriptions: New cephalexin 500 mg capsule 500 mg PO Q8H Qty: 15 RF: 0 Continued ferrous sulfate 325 MG tablet 325 mg PO 1200,1700 Qty: 60 RF: 0 aripiprazole 10 MG tablet 10 mg PO DAILY Qty: 30 RF: 0 mupirocin 2 % ointment 1 applic topical TID PRN (Reason: rash) 10 Days Qty: 1 RF: 0 Discontinued cephalexin 500 MG capsule 500 mg PO Q8 Qty: 21 RF: 0 sulfamethoxazole-trimethoprim 800-160 mg tablet 1 tab PO BID Qty: 20 RF: 0 cephalexin 500 mg capsule 500 mg PO Q6 Qty: 40 RF: 0 cephalexin 500 mg capsule 500 mg PO Q6H 10 Days Qty: 40 RF: 0 sulfamethoxazole-trimethoprim [Bactrim] 400-80 mg tablet 1 tab PO BID 10 Days Qty: 20 RF: 0 Referrals / Follow Up: Care Physician,No Primary [Primary Care Provider] - In 1 Week Disposition Disposition (needs filled in before D/C Order can be placed): Home, Self Care Charges/Coding Addendum Addendum: This patient was seen in conjunction with Aruna García. I have independently interviewed and examined the patient and reviewed pertinent historical, laboratory, and other data. I have reviewed her note and concur with her documentation 35-year-old female who was admitted for acute opioid withdrawal and managed on the buprenorphine withdrawal protocol with improvement. Patient was seen and examined day of discharge. No acute events overnight. Physical Exam: Gen: Appears unkempt, not pale, not jaundiced, diffuse scabbing and excoriations CVS:HS I +II, regular, no murmurs RESP: Diminished at lung bases GI: BS present and normal, soft, nontender, no palpable organs EXT:No edema Visit Charges Inpatient E&M: 38460 Disch Hosp
--- NOTE | 2020-12-11 16:08 | PHA.DC.MR ---
Pharmacy Service has performed discharge medication reconciliation for this patient. The patient's discharge medication list was reviewed for discrepancies and discrepancies were resolved. Home Medications aripiprazole 10 mg PO DAILY #30 tablet 09/01/20 ferrous sulfate 325 mg PO 1200,1700 #60 tablet 09/01/20 mupirocin 1 applic TOPICAL TID PRN 10 Days #1 tube 10/27/20 cephalexin 500 mg PO Q8H #15 cap 12/11/20
== END 2020-12-11 17:40 | disposition home or self-care (01) ==
LOC: ED 01:39 → PCU 06:58
PROVIDERS: Internal Medicine; Nurse Practitioner Family; Admitting Provider Student in an Organized Health Care Education/Training Program; Emergency Provider Emergency Medicine; Visit Provider Internal Medicine
DX: F11.23 Opioid dependence with withdrawal (principal); B96.20 Unspecified Escherichia coli [E. coli] as the cause of diseases classified elsewhere; F31.9 Bipolar disorder, unspecified; B18.2 Chronic viral hepatitis C; D50.9 Iron deficiency anemia, unspecified; E43 Unspecified severe protein-calorie malnutrition; Z68.1 Body mass index [BMI] 19.9 or less, adult; R79.89 Other specified abnormal findings of blood chemistry; Z79.899 Other long term (current) drug therapy; F15.10 Other stimulant abuse, uncomplicated; F17.210 Nicotine dependence, cigarettes, uncomplicated; F14.90 Cocaine use, unspecified, uncomplicated; R23.4 Changes in skin texture
CPT/HCPCS: 80053; 81001; 85025; 86703; 87086; 87088; 87186; 93005; 97802; 99285; H0012; J2405

== ENCOUNTER 2020-12-30 01:20 | Emergency (ER) | payer MEDICAID, SELFPAY ==
[2020-12-09 03:54] VITALS: BMI 19.3
[2020-12-30 01:21] VITALS: BP 145/83; PULSE 131; RESP 16; TEMP 36.7; O2SAT 97; BMI 19.1
--- NOTE | 2020-12-30 01:31 | EKG12_ITS ---
Test Reason : SUBSTANCE Blood Pressure : / mmHG Vent. Rate : 127 BPM Atrial Rate : 127 BPM P-R Int : 132 ms QRS Dur : 074 ms QT Int : 296 ms P-R-T Axes : 071 087 057 degrees QTc Int : 430 ms Sinus tachycardia Otherwise normal ECG Confirmed by STEVAN SEVERINO, EMANUEL ([id number]), book or script editor BERNICE STOVALL ([id number]) on 01/02/2021 9:47:41 AM Referred By: HEIKE Confirmed By:EMANUEL CALLES MD
--- NOTE | 2020-12-30 01:32 | EDS_ITS ---
HPI History of Present Illness Chief Complaint: Substance Abuse Informant: patient and EMS Narrative Narrative: I talked to EMS and the patient. Evidently she was using heroin and methamphetamines which are common for her. In some fashion the police got involved. They called EMS to check her out and she was brought in. No Narcan was given. Patient tells me she wants to sleep. I cannot get any real details from her. I have no report of her being suicidal. She has been through detox including recently. I cannot get from her if she is interested in this now. History is very limited. [facility] Medical History Active intravenous drug use Anemia History of hepatitis C History of heroin use History of methamphetamine use Opiate withdrawal Severe protein-calorie malnutrition Home Medications NK 12/30/20 [History Last Taken Unknown] Allergy/AdvReac Type Severity Reaction Status Date / Time No Known Allergies Allergy Verified 12/09/20 01:28 Social History Smoking Status: Current every day smoker tobacco type: cigarettes substance use type: crack/cocaine, IV drugs and methamphetamine ROS ROS ED ROS Narrative Unable to really obtain a review of systems. Patient mumbles. She is very hard to understand. I will asked her to speak clearly and she will say 1 or 2 words clearly and then her voice mumbles again. Some of this may be due to a dry mouth. I get no indication of expressive aphasia. But I am not able to get what I would feel is a consistent good review of systems. EXAM Physical Exam Const Vital Signs: 12/30/20 01:21 Temperature 98.1 F Temperature Source Oral Pulse Rate 131 H Respiratory Rate 16 Blood Pressure 145/83 H Blood Pressure Mean 103 Pulse Ox 97 Oxygen Delivery Method Room Air Constitutional Narrative: Patient is thin. She has multiple excoriations all over her body. None of these look to be acutely infected. HEENT HEENT Narrative: I see no sign of trauma to her head or face but she does have excoriations diffusely. Negative for trauma Eyes EOMs intact bilaterally General Eye ED: Negative for scleral icterus Resp normal respiratory effort and clear to auscultation bilaterally Cardio regular rhythm Rate: tachycardic GI normal to inspection, nondistended, normoactive bowel sounds and non-tender Palpation: soft Back/Spine no CVA tenderness Extremity Extremity Narrative: Excoriations and track zavala. No sign of acute abscess. Neuro Neuro Narrative: Patient is awake and alert. She talks to me when I ask her questions. She will tell me 1 or 2 words clearly and then she starts mumbling is very hard to understand her. Each time I correct her she will say a few words again clear. Sensorium / Orientation: alert Skin Skin Narrative: Diffuse excoriations. MDM MDM MDM Narrative Medical decision making narrative: Patient's been watched during the night. There have been no issues. She is more awake alert. She states she does not know who called the police or EMS. She thinks they called because she was on the sidewalk. She denies hurting herself. She admits to doing both meth and heroin last night. Her only complaint is that she is tired. I discussed options. She is comfortable going home. She has to sort out how to get a ride. It sounds like at this time she is not interested in detox. EKG Initial EKG: Comments: EKG done for tachycardia and read by me showed sinus rhythm with tachycardic rate of 127. No ventricular ectopy. No acute ST elevation or depression. VA interval, QRS duration and QTc are normal. Discharge Plan Triage Chief Complaint: Substance Abuse ED Provider: Dionicio Gimenez Dx/Rx/DC Orders Clinical Impression: Drug abuse Instructions: ED Drug Abuse Prescriptions: No Action NK RF: 0 Primary Care Provider: Care Physician,No Primary Referrals: Juan Alberto Wu DO [STAFF PHYSICIAN] - 3-5 Days Care Physician,No Primary [Primary Care Provider] - Disposition Disposition: Home, Self Care
[2020-12-30 06:17] VITALS: RESP 14
== END 2020-12-30 07:50 | disposition home or self-care (01) ==
PROVIDERS: Emergency Provider Emergency Medicine
DX: F11.10 Opioid abuse, uncomplicated (principal); F17.210 Nicotine dependence, cigarettes, uncomplicated
CPT/HCPCS: 93005; 99283

== ENCOUNTER 2021-01-22 10:30 | Observation (INO) | payer MEDICAID, SELFPAY ==
[2021-01-22 10:32] VITALS: BP 132/90; PULSE 117; RESP 18; TEMP 35; O2SAT 98; BMI 19.6
--- NOTE | 2021-01-22 10:48 | EX.ED.DYSGE1 ---
HPI History of Present Illness Chief Complaint: Overdose Informant: patient Narrative Narrative: Patient is a 35-year-old female with a past medical history of drug abuse, hepatitis who presents to the emergency department for overdose. She states that she did use fentanyl this morning. She also used methamphetamine. She did receive Narcan and became more responsive. Upon arrival to the emergency department she is sleeping but is easily arousable. She has no complaints. She does want to detox at this time. Patient states she does inject the methamphetamine and snorts the fentanyl. She denies any alcohol use or other drug use. She does not take medications on a regular basis. She has any chest pain, shortness of breath or heart palpitations. No headache or neck pain. [facility] Medical History Active intravenous drug use Anemia History of hepatitis C History of heroin use History of methamphetamine use Opiate withdrawal Severe protein-calorie malnutrition Home Medications NK 12/30/20 [History Last Taken Unknown] Allergy/AdvReac Type Severity Reaction Status Date / Time No Known Allergies Allergy Verified 12/09/20 01:28 Social History Smoking Status: Current every day smoker tobacco type: cigarettes substance use type: crack/cocaine, IV drugs and methamphetamine ROS ROS ED Constitutional Constitutional ED: Denies chills or fever(s) Eyes Eyes: Denies change in vision ENT ENT ED: Denies epistaxis or rhinorrhea Cardiovascular Cardiovascular: Denies chest pain or palpitations Respiratory/Chest Respiratory/Chest: Denies cough or dyspnea Gastrointestinal Gastrointestinal: Denies abdominal pain, diarrhea, nausea or vomiting Genitourinary Genitourinary ED: Denies dysuria, hematuria or urinary frequency Musculoskeletal Musculoskeletal: Denies back pain or neck pain Integumentary Denies rash Neurologic Neurologic: Denies dizziness, headache(s) or weakness EXAM Physical Exam Const Vital Signs: 01/22/21 10:32 01/22/21 12:24 Temperature 95.0 F L Temperature Source Temporal Pulse Rate 117 H 81 Respiratory Rate 18 14 Blood Pressure 132/90 H 116/91 H Blood Pressure Mean 104 99 Pulse Ox 98 98 Oxygen Delivery Method Room Air Room Air Positive well nourished and well developed Constitutional Narrative: Patient is sleeping but easily arousable. She does answer questions appropriately. General Appearance ED: well developed and NAD HEENT Reports normocephalic, head/scalp atraumatic and moist mucous membranes Eyes PERRL and EOMs intact bilaterally Neck supple General: Negative for tenderness Chest Wall inspection of chest normal Resp normal respiratory effort and clear to auscultation bilaterally Auscultation: Negative for rales, rhonchi or wheezes Cardio regular rhythm and no murmurs Rate: tachycardic GI normal to inspection, nondistended, normoactive bowel sounds and non-tender Palpation: soft; Negative for guarding or rebound tenderness present Extremity normal to inspection General Extremety ED: Negative for edema or tenderness General Extremity: Negative for edema Neuro Sensorium / Orientation: alert Motor Exam: strength 5/5 throughout Psych mental status grossly normal Skin no rashes or lesions noted MDM MDM MDM Narrative Medical decision making narrative: Patient presents the ED after overdosing on fentanyl. She did respond to Narcan given by EMS. On arrival to the ED she is mildly tachycardic and hypothermic. She otherwise has no complaints. She is requesting to detox at this time. Will check basic lab work. On reexamination patient is more difficult to arouse so she is given a dose of Narcan. She is arousable now but very sleepy. Patient still wants to detox at this time so will be brought in the hospital for further evaluation and management. Her lab work did not reveal significant acute abnormality. Alcohol level is negative. Case was discussed with the hospitalist who is going to admit her. Lab Data Labs: Laboratory Results - last 24 hr 01/22/21 01/22/21 01/22/21 10:50 10:50 10:50 WBC 6.1 RBC 4.13 L Hgb 11.0 L Hct 35.0 L MCV 84.7 MCH 26.6 L MCHC 31.4 L RDW Std Deviation 42.9 RDW Coeff of Owen 13.7 Plt Count 306 MPV 9.7 Immature Gran % (Auto) 0.300 Neut % (Auto) 39.5 L Lymph % (Auto) 49.5 H Teller % (Auto) 8.7 Eos % (Auto) 1.8 Baso % (Auto) 0.2 Absolute Neuts (auto) 2.4 Absolute Lymphs (auto) 3.00 Nucleated RBC % 0 Reactive Lymphocytes RARE Sodium 140 Potassium 3.4 L Chloride 108 H Carbon Dioxide 28.0 Anion Gap 4 L BUN 12 Creatinine 0.74 Estim Creat Clear Calc 80.97 Est GFR (MDRD) Af Amer 115 Est GFR (MDRD) Non-Af 95 BUN/Creatinine Ratio 16.3 Glucose 98 Calcium 8.9 Total Bilirubin 0.20 AST 26 ALT 35 Alkaline Phosphatase 94 Total Protein 8.3 H Albumin 3.2 Globulin 5.1 H Albumin/Globulin Ratio 0.6 L Serum , Qual Ethyl Alcohol 5.0 01/22/21 10:50 WBC RBC Hgb Hct MCV MCH MCHC RDW Std Deviation RDW Coeff of [place] Plt Count MPV Immature Gran % (Auto) Neut % (Auto) Lymph % (Auto) Teller % (Auto) Eos % (Auto) Baso % (Auto) Absolute Neuts (auto) Absolute Lymphs (auto) Nucleated RBC % Reactive Lymphocytes Sodium Potassium Chloride Carbon Dioxide Anion Gap BUN Creatinine Estim Creat Clear Calc Est GFR (MDRD) Af Amer Est GFR (MDRD) Non-Af BUN/Creatinine Ratio Glucose Calcium Total Bilirubin AST ALT Alkaline Phosphatase Total Protein Albumin Globulin Albumin/Globulin Ratio Serum , Qual NEGATIVE Ethyl Alcohol Discharge Plan Dx/Rx/DC Orders Clinical Impression: Drug abuse, Accidental overdose Disposition Disposition: Acute Care Hospital [facility] Discharge Date/Time: 01/22/21 13:25
[2021-01-22 11:03] LABS: Absolute Neutrophil Count 2.4 X10^3/uL (2.0-7.7); Basophil# 0.01 X10^3/uL; Basophil% 0.2 % (0-1); Eosinophil# 0.11 X10^3/uL; Eosinophils% 1.8 % (0-5); Lymphocyte % 49.5 % (19-41); Mean Corp Hgb Conc 31.4 g/dL (32-36); Mean Corpuscular Hgb 26.6 pg (27.0-32.0); Mean Corpuscular Volume 84.7 fL (81-99); Mean Platelet Vol. 9.7 fl (6.2-12.0); Monocyte# 0.53 X10^3/uL; Monocyte% 8.7 % (0-10); NRBC Flagged by Analyzer 0 % (0-5); Neutrophil # 2.39 X10^3/uL (2.7-7.7); Neutrophil % 39.5 % (47-70); POSITIVE MORPHOLOGY YES; Platelet Count 306 K/mm3 (150-450); RBC Distribution Width CV 13.7 % (11.6-14.6); RBC Distribution Width SD 42.9 fl (35.1-43.9); Red Blood Count 4.13 M/mm3 (4.2-5.4); White Blood Count 6.1 K/mm3 (4.4-11.0)
[2021-01-22 11:05] LABS: Differential Indicated SCAN CRITERIA MET
[2021-01-22 11:06] LABS: Internal QC Validated? YES +Cl - CLEAR BKGD; Pregnancy, Serum, hCG Quali. NEGATIVE Negative
[2021-01-22 11:14] LABS: ALB/GLOB Ratio 0.6 RATIO (0.9-2.4); AST(SGOT) 26 U/L (15-37); Alanine Aminotransfer ALT/SGPT 35 U/L (13-56); Albumin, Serum 3.2 g/dL (3.2-5.0); Alkaline Phosphatase 94 U/L (45-117); Anion Gap 4 (5-15); BUN 12 mg/dL (7-18); BUN/Creat Ratio 16.3 RATIO (10-20); Calcium,Total 8.9 mg/dL (8.5-10.1); Chloride 108 mmol/L (98-107); Creatinine, Serum 0.74 mg/dL (0.55-1.02); EST Glomerular Filtration Rate 95 mL/min (>60); Est Glom Filt Rate - Afr Amer 115 mL/min (>60); Estimated Creatinine Clearance 80.97 ml/min; Globulin 5.1 g/dL (2.2-4.2); Glucose 98 mg/dL (74-106); Potassium 3.4 mmol/L (3.5-5.1); Protein, Total 8.3 g/dL (6.4-8.2); Sodium Level 140 mmol/L (136-145)
[2021-01-22 11:47] LABS: Reactive Lymphocyte RARE
[2021-01-22 12:24] VITALS: BP 116/91; PULSE 81; RESP 14; O2SAT 98
[2021-01-22] MEDS: Naloxone 2 MG/2 ML Syringe 1 MG IV (12:40)
--- NOTE | 2021-01-22 13:01 | CM.ED ---
JULIEN Note Referral Source: Case Find Referral Reason: No primary care doctor, Drug detox JULIEN reviewed patient's chart. Patient as no listed PCP. SW provided patient with PCP list but patient was asleep so SW put it in her belongings. Per CHRISTI Negron patient wants [facility]. JULIEN called [facility] and spoke to Harshil. Harshil reports she is familiar with patient and needs no other information. Harshil will follow up with patient. No further ED social work services needed at this time. Plan: [facility] admit and patient provided with PCP list. Jennifer DELVALLE
[2021-01-22 13:17] VITALS: BP 153/104; PULSE 83; RESP 18; TEMP 36.9; O2SAT 97
--- NOTE | 2021-01-22 13:44 | PCS.PANDOC ---
PANDEMIC DOCUMENTATION INITIATED: Date: 01/07/2021 Time: 190
[2021-01-22 13:48] VITALS: BMI 19.4
[2021-01-22 13:49] VITALS: BP 121/89; PULSE 77; RESP 18; TEMP 36.6; O2SAT 99
--- NOTE | 2021-01-22 18:11 | HP.PCM.HOS_ITS ---
HPI - General General Date of Admission: 01/22/21 HPI Narrative SACHI BRADFORD, is a 35 F who presents to the ED after an overdose. She used fentanyl this morning was also methamphetamines and became unresponsive. EMS was called and gave her a dose of Narcan which made her more responsive. She is still very lethargic the risk for a rate is adequate. She did express to the ED physician that she wants detox and that she injects amphetamines and snorts fentanyl. She denies any alcohol or other drug use. FOR[facility]LY [facility] Medical History (Updated 01/23/21 @ 13:[address] Solo Petty MD) Active intravenous drug use Anemia History of hepatitis C History of heroin use History of methamphetamine use Opiate withdrawal Severe protein-calorie malnutrition Status post elective Home Medications NK 12/30/20 [History Last Taken Unknown] Allergy/AdvReac Type Severity Reaction Status Date / Time No Known Allergies Allergy Verified 12/09/20 01:28 Family History (Updated 01/23/21 @ 13:[address] Solo Petty MD) Other Cancer Colon cancer Diabetes Heart disease Surgical History (Updated 01/23/21 @ 13:[address] Solo Petty MD) Status post Status post tonsillectomy Status post tubal ligation Social History Smoking Status: Current every day smoker tobacco type: cigarettes substance use type: crack/cocaine, IV drugs and methamphetamine ROS Constitutional Constitutional: Denies chills, fatigue, fever(s) or malaise Eyes Eyes: Denies blurry vision ENT HEENT: Denies headache(s) or nasal discharge Cardiovascular Cardiovascular: Denies chest pain, dyspnea on exertion or syncope Respiratory/Chest Respiratory/Chest: Denies cough, shortness of breath at rest or shortness of breath with exertion Gastrointestinal Gastrointestinal: Denies constipation, diarrhea, nausea or vomiting Genitourinary Genitourinary: Denies dysuria Neurologic Neurologic: Denies focal weakness, numbness or tremor(s) Psychiatric Psychiatric: Denies anxiety or depression Vital Signs Vital Signs Vital Signs: 01/22/21 10:32 01/22/21 12:24 01/22/21 13:17 Temperature 95.0 F L 98.5 F Temperature Source Temporal Oral Pulse Rate 117 H 81 83 Respiratory Rate 18 14 18 Respiratory Effort Respiratory Depth Respiratory Pattern Blood Pressure 132/90 H 116/91 H 153/104 H Blood Pressure Mean 104 99 120 Blood Pressure Source Blood Pressure Position Blood Pressure Location Pulse Ox 98 98 97 Oxygen Delivery Method Room Air Room Air Room Air 01/22/21 13:49 01/22/21 13:58 Temperature 97.8 F Temperature Source Oral Pulse Rate 77 Respiratory Rate 18 Respiratory Effort Normal Non-Labored Respiratory Depth Normal Respiratory Pattern Normal Blood Pressure 121/89 H Blood Pressure Mean 99 Blood Pressure Source Monitor Blood Pressure Position Semi-Fowlers Blood Pressure Location Right Arm Pulse Ox 99 Oxygen Delivery Method Room Air Room Air Weight Weight: 106 lb 4.205 oz Body Mass Index (BMI) 19.4 Physical Exam Const oriented x3 and no apparent distress Constitutional Narrative: Sleeping but easily arousable General Appearance: cooperative HEENT normocephalic Mouth: dry mucous membranes Eyes PERRL, EOMs intact bilaterally and conjunctivae normal Neck supple and no JVD Resp normal respiratory effort, no retractions, no use of accessory muscles and clear to auscultation bilaterally Auscultation: Negative for crackles, rales, rhonchi or wheezes Cardio regular rate, regular rhythm, S1 normal heart sound, S2 normal heart sound and no murmurs GI soft to palpation, non-tender and non-distended; Negative for hepatosplenomegaly Extremity no clubbing, cyanosis or edema Skin no rashes or lesions noted Neuro no focal motor deficits and no sensory deficits noted Psych affect normal Appearance: appropriate Results Lab / Micro Data Result Diagrams: 01/22/21 10:50 01/22/21 10:50 Labs: Laboratory Results - last 24 hr 01/22/21 10:50: WBC 6.1, RBC 4.13 L, Hgb 11.0 L, Hct 35.0 L, MCV 84.7, MCH 26.6 L, MCHC 31.4 L, RDW Std Deviation 42.9, RDW Coeff of Owen 13.7, Plt Count 306, MPV 9.7, Immature Gran % (Auto) 0.300, Neut % (Auto) 39.5 L, Lymph % (Auto) 49.5 H, [place] % (Auto) 8.7, Eos % (Auto) 1.8, Baso % (Auto) 0.2, Absolute Neuts (auto) 2.4, Absolute Lymphs (auto) 3.00, Nucleated RBC % 0, Reactive Lymphocytes RARE 01/22/21 10:50: Sodium 140, Potassium 3.4 L, Chloride 108 H, Carbon Dioxide 28.0, Anion Gap 4 L, BUN 12, Creatinine 0.74, Estim Creat Clear Calc 80.97, Est GFR (MDRD) Af Amer 115, Est GFR (MDRD) Non-Af 95, BUN/Creatinine Ratio 16.3, Glucose 98, Calcium 8.9, Total Bilirubin 0.20, AST 26, ALT 35, Alkaline Phospha tase 94, Total Protein 8.3 H, Albumin 3.2, Globulin 5.1 H, Albumin/Globulin Ratio 0.6 L 01/22/21 10:50: Ethyl Alcohol 5.0 01/22/21 10:50: Serum , Qual NEGATIVE Assessment & Plan Assessment/Plan (1) Drug abuse: PLAN: 1. Acute opiate overdose requesting detox/hepatitis C -Continue with the opiate withdrawal protocol -We will have her follow-up with [facility] as an outpatient -Discussed that she cannot receive treatment for hepatitis C until she undergoes detox and stays clean -She was tested for HIV in November and this was negative will not retest at this time DVT: Ambulation Charges/Coding Visit Charges Inpatient E&M: 55678 Init Hosp L2
[2021-01-22 18:43] VITALS: BP 120/76; PULSE 80; RESP 18; TEMP 36.4; O2SAT 97
[2021-01-22] MEDS: Buprenorphine HCl 2 MG TAB.SUBL SL (20:15)
[2021-01-23 00:18] VITALS: BP 128/89; PULSE 87; RESP 18; TEMP 36.4; O2SAT 99
[2021-01-23 00:35] LABS: Amphetamine Urine VISTA POSITIVE (<1000 ng/mL); Barbiturate Urine VISTA NEGATIVE (< 200 ng/mL); Benzodiazepine Urine VISTA NEGATIVE (< 200 ng/mL); Cocaine Urine VISTA NEGATIVE (< 300 ng/mL); Ecstacy Urine VISTA POSITIVE (< 500 ng/mL); Methadone Urine VISTA NEGATIVE (< 300 ng/mL); PCP Urine VISTA NEGATIVE (< 25 ng/mL); THC Urine VISTA NEGATIVE (< 50 ng/mL); Vista UDS pH Range 6
[2021-01-23 04:11] VITALS: BP 142/85; PULSE 78; RESP 18; TEMP 36.5; O2SAT 97
[2021-01-23] MEDS: Buprenorphine HCl 2 MG TAB.SUBL SL ×3 (04:14→20:05)
--- NOTE | 2021-01-23 06:00 | NURSING ---
Mother called this am looking for her daughter. She is aware that she is an addict and has been here several times for it in the past. I told her yes she is here and she has been sleeping and vitals are stable. Mother just asked that we tell her that she called and she is aware that pt is not able to call her until she has been released.
[2021-01-23 07:44] VITALS: BP 121/81; PULSE 100; RESP 16; TEMP 36.9; O2SAT 95
--- NOTE | 2021-01-23 11:15 | ADDICTION ---
TW met with pt to complete ASAM, AUDIT, DUDIT, and MSE. PT was asleep and answered questions when asked but was not alert and oriented. TW will need to return 01/24/21 to complete further documentation and work on discharge planning with pt.
[2021-01-23 11:35] VITALS: BP 116/68
[2021-01-23] MEDS: Gabapentin 300 MG Capsule PO (11:38)
[2021-01-23] MEDS: cloNIDine HCl 0.1 MG Tablet PO (11:38)
[2021-01-23] MEDS: hydrOXYzine PAM 25 MG Capsule 50 MG PO (11:38)
--- NOTE | 2021-01-23 13:13 | PCM.PN.HOSP ---
Subjective Subjective Doing well, no issues overnight. Sleeping Objective Data Objective Data Vital Signs: Vital Signs Temp Pulse Resp BP Pulse Ox 98.5 F 100 16 116/68 95 01/23/21 07:44 01/23/21 07:44 01/23/21 07:44 01/23/21 11:35 01/23/21 07:44 Oxygen Delivery Method Room Air Weight: 106 lb 4.205 oz Body Mass Index (BMI) 19.4 Intake & Output: Intake and Output for Last 24 Hours 01/22/21 01/23/21 01/24/21 03:59 03:59 03:59 Intake Total 0 / 0 0 / 0 Output Total 900 / 900 0 / 0 Balance -900 / -900 0 / 0 Lab / Micro Data Result Diagrams: 01/22/21 10:50 01/22/21 10:50 Labs: Laboratory Results - last 24 hr 01/22/21 20:30: Urine Opiates Screen NEGATIVE, Urine Methadone Screen NEGATIVE, Ur Barbiturates Screen NEGATIVE, Ur Phencyclidine Scrn NEGATIVE, Ur Amphetamines Screen POSITIVE H, U Methamphetamin-MDMA POSITIVE H, U Benzodiazepines Scrn NEGATIVE, Urine Cocaine Screen NEGATIVE, U Cannabinoids Screen NEGATIVE, Ur Drug Screen Comment Physical Exam Const oriented x3 and no apparent distress Constitutional Narrative: Sleeping but easily arousable General Appearance: cooperative HEENT normocephalic Eyes PERRL, EOMs intact bilaterally and conjunctivae normal Neck supple and no JVD Resp normal respiratory effort, no retractions, no use of accessory muscles and clear to auscultation bilaterally Auscultation: Negative for crackles, rales, rhonchi or wheezes Cardio regular rate, regular rhythm, S1 normal heart sound, S2 normal heart sound and no murmurs GI soft to palpation, non-tender and non-distended; Negative for hepatosplenomegaly Extremity no clubbing, cyanosis or edema Skin no rashes or lesions noted Neuro no focal motor deficits and no sensory deficits noted Psych affect normal Appearance: appropriate Assessment & Plan Assessment/Plan (1) Drug abuse: PLAN: 1. Acute opiate overdose requesting detox/hepatitis C -Continue with the opiate withdrawal protocol -We will have her follow-up with [facility] as an outpatient -Discussed that she cannot receive treatment for hepatitis C until she undergoes detox and stays clean -She was tested for HIV in November and this was negative will not retest at this time DVT: Ambulation Charges/Coding Visit Charges Inpatient E&M: 10018 Subs Hosp L2
[2021-01-23 14:46] VITALS: BP 119/73; PULSE 95; RESP 18; TEMP 37.1; O2SAT 95
[2021-01-23 19:54] VITALS: BP 122/83; PULSE 102; RESP 18; TEMP 36.8; O2SAT 95
[2021-01-24 02:00] VITALS: BP 116/76; PULSE 115; RESP 20; TEMP 36.9; O2SAT 94
[2021-01-24] MEDS: Buprenorphine HCl 2 MG TAB.SUBL SL ×3 (04:18→20:05)
[2021-01-24 08:15] VITALS: BP 116/69; PULSE 120; RESP 16; TEMP 37.3; O2SAT 93
--- NOTE | 2021-01-24 10:07 | PCM.PN.HOSP ---
Subjective Subjective Resting comfortably, no issues overnight Objective Data Objective Data Vital Signs: Vital Signs Temp Pulse Resp BP Pulse Ox 99.1 F 120 H 16 116/69 93 01/24/21 08:15 01/24/21 08:15 01/24/21 08:15 01/24/21 08:15 01/24/21 08:15 Oxygen Delivery Method Room Air Weight: 106 lb 4.205 oz Body Mass Index (BMI) 19.4 Intake & Output: Intake and Output for Last 24 Hours 01/23/21 01/24/21 01/25/21 03:59 03:59 03:59 Intake Total 0 / 0 220 / 220 50 / 50 Output Total 900 / 900 0 / 0 Balance -900 / -900 220 / 220 50 / 50 Lab / Micro Data Result Diagrams: 01/22/21 10:50 01/22/21 10:50 Physical Exam Const oriented x3 and no apparent distress Constitutional Narrative: Sleeping but easily arousable General Appearance: cooperative HEENT normocephalic Eyes PERRL, EOMs intact bilaterally and conjunctivae normal Neck supple and no JVD Resp normal respiratory effort, no retractions, no use of accessory muscles and clear to auscultation bilaterally Auscultation: Negative for crackles, rales, rhonchi or wheezes Cardio regular rate, regular rhythm, S1 normal heart sound, S2 normal heart sound and no murmurs GI soft to palpation, non-tender and non-distended; Negative for hepatosplenomegaly Extremity no clubbing, cyanosis or edema Skin no rashes or lesions noted Neuro no focal motor deficits and no sensory deficits noted Psych affect normal Appearance: appropriate Assessment & Plan Assessment/Plan (1) Drug abuse: PLAN: 1. Acute opiate overdose requesting detox/hepatitis C -Continue with the opiate withdrawal protocol -We will have her follow-up with [facility] as an outpatient -Discussed that she cannot receive treatment for hepatitis C until she undergoes detox and stays clean -She was tested for HIV in November and this was negative will not retest at this time DVT: Ambulation Charges/Coding Visit Charges Inpatient E&M: 26286 Subs Hosp L2
--- NOTE | 2021-01-24 11:49 | ADDICTION ---
TW met with PT to discuss discharge planning. PT was requesting an assessment appointment at [facility] upon discharge. TW discussed d/c with nurse Zuleyka Silver who stated she would be d/c on Thursday. TW set up assessment appointment with PT for 1PM 01/25/21 at [facility]. Pt was informed. PT still had difficulty staying awake during the meeting and often fell asleep mid-sentence.
[2021-01-24 12:10] VITALS: BP 122/72; PULSE 117; RESP 16; TEMP 36.7; O2SAT 94
[2021-01-24 16:39] VITALS: BP 112/63; PULSE 120; RESP 18; TEMP 37; O2SAT 94
[2021-01-24] MEDS: cloNIDine HCl 0.1 MG Tablet PO (17:18)
[2021-01-24 20:00] VITALS: BP 114/68; PULSE 124; RESP 18; TEMP 37.6; O2SAT 94
[2021-01-24 23:13] VITALS: BP 109/72; PULSE 112; RESP 18; TEMP 37; O2SAT 95
[2021-01-25] VITALS (8 sets, daily range): BP systolic 103–142; BP diastolic 61–72; PULSE 111–124; RESP 16–18; TEMP 36.8–38.3; O2SAT 94–97
[2021-01-25] MEDS: Buprenorphine HCl 2 MG TAB.SUBL SL (07:42)
[2021-01-25] MEDS: 0.9% Normal Saline 1,000 ML 500 ML IV (11:07)
[2021-01-25] MEDS: 0.9% Normal Saline 1,000 ML 100 ML IV ×2 (14:53→22:57)
--- NOTE | 2021-01-25 14:55 | NURSING ---
Pt is lethargic and sleeping through assessment. New orders per Dr. Petty to continue IV hydration and pt will nt be discharged today. Message left for [facility] personnel that Pt will not be coming to meeting today. Pt mom is also updated.
--- NOTE | 2021-01-25 15:09 | PCM.PN.HOSP ---
Subjective Subjective Still very lethargic, did not want to go anywhere today. In discussing with nursing, they state that she is not eating or drinking anything. Objective Data Objective Data Vital Signs: Vital Signs Temp Pulse Resp BP Pulse Ox 98.9 F 113 H 16 116/69 97 01/25/21 13:15 01/25/21 13:15 01/25/21 13:15 01/25/21 13:15 01/25/21 13:15 Oxygen Delivery Method Room Air Weight: 106 lb 4.205 oz Body Mass Index (BMI) 19.4 Intake & Output: Intake and Output for Last 24 Hours 01/24/21 01/25/21 01/26/21 03:59 03:59 03:59 Intake Total 220 / 220 410 / 410 1350 / 1350 Output Total 0 / 0 Balance 220 / 220 410 / 410 1350 / 1350 Medical Nutrition Assessment Dietitian: Malnutrition Criteria Met Start: 01/25/21 13:30 Freq: Status: Active Protocol: Document 01/25/21 13:30 AG (Rec: 01/25/21 13:30 [id number]) Nutrition Malnutrition Evidence of Malnutrition Exists Yes Malnutrition (moderate): Social/Behavioral/ Environmental Evidenced By Suboptimal Energy Intake ( Moderate),Weight Loss ( Moderate),Physical Changes ( Mild) Clinical Problem Chronic Disease or Condition Related Malnutrition Etiology moderate malnutrition in context of social/ environmental circumstances r/ t inadequate energy intake d/t drug abuse Signs/Symptoms as evidenced by unintentional wt loss of 23.7#/18% x 9 months, estimated PO intake meeting <75% of estimated energy requirements >3 months, mild muscle wasting/fat loss per physical exam Status Active Problem Recommendation Dietitian Recommendations/Changes continue regular diet; will add 120mL ensure enlive w/ meals d/t signs/symptoms of malnutrition. Recommend close monitoring of electrolytes when pt resumes PO diet- suspect risk for refeeding syndrome. Lab / Micro Data Result Diagrams: 01/22/21 10:50 01/22/21 10:50 Physical Exam Const oriented x3 and no apparent distress Constitutional Narrative: Sleeping but easily arousable General Appearance: cooperative HEENT normocephalic Eyes PERRL, EOMs intact bilaterally and conjunctivae normal Neck supple and no JVD Resp normal respiratory effort, no retractions, no use of accessory muscles and clear to auscultation bilaterally Auscultation: Negative for crackles, rales, rhonchi or wheezes Cardio regular rate, regular rhythm, S1 normal heart sound, S2 normal heart sound and no murmurs GI soft to palpation, non-tender and non-distended; Negative for hepatosplenomegaly Extremity no clubbing, cyanosis or edema Skin no rashes or lesions noted Neuro no focal motor deficits and no sensory deficits noted Psych affect normal Appearance: appropriate Assessment & Plan Assessment/Plan (1) Drug abuse: PLAN: 1. Acute opiate overdose requesting detox/hepatitis C -Continue with the opiate withdrawal protocol -We will have her follow-up with [facility] as an outpatient -Discussed that she cannot receive treatment for hepatitis C until she undergoes detox and stays clean -She was tested for HIV in November and this was negative will not retest at this time 2. Dehydrated -Not sure why she is refusing to take any p.o. intake, she denies any abdominal pain, or nausea. -She has completed her opiate withdrawal protocol -She got a 1 L bolus today and will start her on IV fluids and check labs in the morning hopefully with hydration she will feel better DVT: Ambulation Charges/Coding Visit Charges Inpatient E&M: 38733 Subs Hosp L2
[2021-01-25 20:15] LABS: Absolute Lymphocyte Count 2.37 X10^3/uL (0.83-4.51); Absolute Neutrophil Count 13.3 X10^3/uL (2.0-7.7); Basophil# 0.04 X10^3/uL; Basophil% 0.2 % (0-1); Eosinophil# 0.03 X10^3/uL; Eosinophils% 0.2 % (0-5); Hematocrit 36.9 % (37-47); Hemoglobin 11.7 g/dL (12.0-15.0); Lymphocyte # 2.37 X10^3/ul (0.83-4.51); Lymphocyte % 13.9 % (19-41); Mean Corp Hgb Conc 31.7 g/dL (32-36); Mean Corpuscular Hgb 26.7 pg (27.0-32.0); Mean Corpuscular Volume 84.2 fL (81-99); Mean Platelet Vol. 9.6 fl (6.2-12.0); NRBC Flagged by Analyzer 0 % (0-5); Neutrophil # 13.33 X10^3/uL (2.7-7.7); Neutrophil % 78.1 % (47-70); Platelet Count 349 K/mm3 (150-450); RBC Distribution Width CV 13.6 % (11.6-14.6); RBC Distribution Width SD 42.3 fl (35.1-43.9); Red Blood Count 4.38 M/mm3 (4.2-5.4); White Blood Count 17.1 K/mm3 (4.4-11.0)
--- NOTE | 2021-01-25 20:53 | RAD_ITS ---
EXAM: XR CHEST, 1 VIEW : 1985 CLINICAL INDICATION: malaise TECHNIQUE: Frontal view of the chest. This report was created using [employer] report generation technology. COMPARISON: 10/16/20 FINDINGS: LUNGS AND PLEURAL SPACES: Mild retrocardiac opacity in the left lower lobe. No pneumothorax. No effusion. HEART: Unremarkable. Cardiac silhouette not enlarged. MEDIASTINUM: Central airways and mediastinal contour are unremarkable. BONES/JOINTS: Unremarkable. SOFT TISSUES: Unremarkable. RAD/Chest 1 View (Portable) IMPRESSION: Mild retrocardiac opacity in the left lower lobe. This could indicate atelectasis or a focal pneumonia. at 2331 Reported and signed by: Yamil Stevens MD Electronically Signed: Yamil Stevens MD at 23:30 EDT Tel , Service support ,
--- NOTE | 2021-01-25 21:44 | PCM.PN.BLA ---
Progress Note Patient has a fever. Her temp is 100.9F. Also patient with tachycardia with heart rate 110-120s. CBC showed leukocytosis. Reports dark urine which is clearing. Reportedly there is a question of patient reporting that previously she had endocarditis. Now patient states that she does not know why she told provider that she had endocarditis since she never had endocarditis. Denies dental pain. Patient was seen at the bedside. Alert and oriented x3. Poor dentition. Heart sounds S1-S2 with no murmur gallop or rub. Lungs with faint Rales at left base. Abdomen bowel sounds present soft nontender nondistended Integumentary: Face with open areas. Also abdomen with open areas. Extremities edema SIRS check Covid screen Check lactic acid. Blood culture x2 ordered. Chest x-ray ordered. Urine culture ordered.
--- NOTE | 2021-01-25 21:59 | PN.HOSP_ITS ---
Hospitalist Note Notified by Yisel BARRAZA at 752 patient had elevated temperature was tachycardic and still very lethargic. CBC ordered at that time which showed a white blood cell count 17.1, elevated from 6.1 on admission 01/22/2021. Upon discussion with Dr. Rowe chest x-ray, blood cultures x2, urine culture, lactic acid, Covid antigen ordered. Upon evaluation of patient patient is noted to be diaphoretic, tachycardic, lethargic. Patient unable to stay awake to answer multiple questions in a row. Covid positive, remaining test pending. Patient not c urrently hypoxic. Discussed with Dr. Rowe, will not start remdesivir or Decadron at this time.
[2021-01-25 22:28] LABS: Lactic Acid 0.8 mmol/L (0.4-1.9)
[2021-01-26 03:04] VITALS: BP 107/57; PULSE 100; RESP 18; TEMP 36.8; O2SAT 97
[2021-01-26 03:06] VITALS: RESP 18
[2021-01-26 06:57] LABS: Absolute Lymphocyte Count 2.99 X10^3/uL (0.83-4.51); Absolute Neutrophil Count 8.7 X10^3/uL (2.0-7.7); Basophil# 0.02 X10^3/uL; Basophil% 0.2 % (0-1); Eosinophil# 0.08 X10^3/uL; Eosinophils% 0.6 % (0-5); Hematocrit 34.9 % (37-47); Hemoglobin 10.8 g/dL (12.0-15.0); Lymphocyte # 2.99 X10^3/ul (0.83-4.51); Lymphocyte % 22.7 % (19-41); Mean Corp Hgb Conc 30.9 g/dL (32-36); Mean Corpuscular Hgb 26.7 pg (27.0-32.0); Mean Corpuscular Volume 86.4 fL (81-99); Mean Platelet Vol. 9.9 fl (6.2-12.0); Monocyte# 1.28 X10^3/uL; Monocyte% 9.7 % (0-10); NRBC Flagged by Analyzer 0 % (0-5); Neutrophil # 8.71 X10^3/uL (2.7-7.7); Neutrophil % 66.2 % (47-70); Platelet Count 319 K/mm3 (150-450); RBC Distribution Width CV 13.8 % (11.6-14.6); RBC Distribution Width SD 43.7 fl (35.1-43.9); Red Blood Count 4.04 M/mm3 (4.2-5.4); White Blood Count 13.2 K/mm3 (4.4-11.0)
[2021-01-26 07:35] LABS: Anion Gap 5 (5-15); BUN 10 mg/dL (7-18); BUN/Creat Ratio 20.4 RATIO (10-20); Calcium,Total 8.1 mg/dL (8.5-10.1); Chloride 102 mmol/L (98-107); Creatinine, Serum 0.49 mg/dL (0.55-1.02); EST Glomerular Filtration Rate 152 mL/min (>60); Est Glom Filt Rate - Afr Amer 183 mL/min (>60); Estimated Creatinine Clearance 120.77 ml/min; Glucose 92 mg/dL (74-106); Magnesium 1.9 mg/dL (1.6-2.6); Potassium 3.8 mmol/L (3.5-5.1); Sodium Level 134 mmol/L (136-145)
[2021-01-26 07:37] LABS: Phosphorus 3.2 mg/dL (2.5-4.9)
[2021-01-26] MEDS: 0.9% Normal Saline 1,000 ML 100 ML IV ×2 (09:37→16:39)
[2021-01-26 09:38] VITALS: BP 116/59; PULSE 101; RESP 18; TEMP 37; O2SAT 95
--- NOTE | 2021-01-26 14:09 | PN.HOSP_ITS ---
Subjective Subjective More alert today, less fatigued. She still states that she feels tired. Denies any hypoxia or shortness of breath. No chest pain or signs of Covid however overnight she did strike fever and therefore they tested her and she came back positive with the antigen. Will confirm with the PCR Objective Data Objective Data Vital Signs: Vital Signs Temp Pulse Resp BP Pulse Ox 98.6 F 101 H 18 116/59 L 95 01/26/21 09:38 01/26/21 09:38 01/26/21 09:38 01/26/21 09:38 01/26/21 09:38 Oxygen Delivery Method Room Air Weight: 106 lb 4.205 oz Body Mass Index (BMI) 19.4 Intake & Output: Intake and Output for Last 24 Hours 01/25/21 01/26/21 01/27/21 03:59 03:59 03:59 Intake Total 410 / 410 2875 / 2875 1610 / 1610 Balance 410 / 410 2875 / 2875 1610 / 1610 Medical Nutrition Assessment Dietitian: Malnutrition Criteria Met Start: 01/25/21 13:30 Freq: Status: Active Protocol: Document 01/25/21 13:30 AG (Rec: 01/25/21 13:30 AG [id number]) Nutrition Malnutrition Evidence of Malnutrition Exists Yes Malnutrition (moderate): Social/Behavioral/ Environmental Evidenced By Suboptimal Energy Intake ( Moderate),Weight Loss ( Moderate),Physical Changes ( Mild) Clinical Problem Chronic Disease or Condition Related Malnutrition Etiology moderate malnutrition in context of social/ environmental circumstances r/ t inadequate energy intake d/t drug abuse Signs/Symptoms as evidenced by unintentional wt loss of 23.7#/18% x 9 months, estimated PO intake meeting <75% of estimated energy requirements >3 months, mild muscle wasting/fat loss per physical exam Status Active Problem Recommendation Dietitian Recommendations/Changes continue regular diet; will add 120mL ensure enlive w/ meals d/t signs/symptoms of malnutrition. Recommend close monitoring of electrolytes when pt resumes PO diet- suspect risk for refeeding syndrome. Lab / Micro Data Result Diagrams: 01/26/21 06:16 01/26/21 06:16 Labs: Laboratory Results - last 24 hr 01/25/21 20:10: WBC 17.1 H, RBC 4.38, Hgb 11.7 L, Hct 36.9 L, MCV 84.2, MCH 26.7 L, MCHC 31.7 L, RDW Std Deviation 42.3, RDW Coeff of [place] 13.6, Plt Count 349, MPV 9.6, Immature Gran % (Auto) 0.600, Neut % (Auto) 78.1 H, Lymph % (Auto) 13.9 L, [place] % (Auto) 7.0, Eos % (Auto) 0.2, Baso % (Auto) 0.2, Absolute Neuts (auto) 13.3 H, Absolute Lymphs (auto) 2.37, Nucleated RBC % 0 01/25/21 21:15: Lactic Acid 0.8 01/26/21 06:16: WBC 13.2 H, RBC 4.04 L, Hgb 10.8 L, Hct 34.9 L, MCV 86.4, MCH 26.7 L, MCHC 30.9 L, RDW Std Deviation 43.7, RDW Coeff of [place] 13.8, Plt Count 319, MPV 9.9, Immature Gran % (Auto) 0.600, Neut % (Auto) 66.2, Lymph % (Auto) 22.7, [place] % (Auto) 9.7, Eos % (Auto) 0.6, Baso % (Auto) 0.2, Absolute Neuts (auto) 8.7 H, Absolute Lymphs (auto) 2.99, Nucleated RBC % 0 01/26/21 06:16: Sodium 134 L, Potassium 3.8, Chloride 102, Carbon Dioxide 27.0, Anion Gap 5, BUN 10, Creatinine 0.49 L, Estim Creat Clear Calc 120.77, Est GFR (MDRD) Af Amer 183, Est GFR (MDRD) Non-Af 152, BUN/Creatinine Ratio 20.4 H, Glucose 92, Calcium 8.1 L, Magnesium 1.9 01/26/21 06:16: Phosphorus 3.2 Micro: Microbiology 01/25/21 21:55 Urine, Clean Catch 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 This could indicate atelectasis or a focal pneumonia. at 2331 Reported and signed by: Yamil Stevens MD Electronically Signed: Yamil Stevens MD at 23:30 EDT Tel , Service support , Physical Exam Const alert, oriented x3 and no apparent distress Constitutional Narrative: Sleeping but easily arousable General Appearance: cooperative HEENT normocephalic and moist oral mucous membranes Eyes PERRL, EOMs intact bilaterally and conjunctivae normal Neck supple and no JVD Resp normal respiratory effort, no retractions, no use of accessory muscles and clear to auscultation bilaterally Auscultation: Negative for crackles, rales, rhonchi or wheezes Cardio regular rate, regular rhythm, S1 normal heart sound, S2 normal heart sound and no murmurs GI soft to palpation, non-tender and non-distended; Negative for hepatosplenomegaly Extremity no clubbing, cyanosis or edema Skin no rashes or lesions noted Neuro no focal motor deficits and no sensory deficits noted Psych affect normal Appearance: appropriate Assessment & Plan Assessment/Plan (1) Drug abuse: PLAN: 1. Acute opiate overdose requesting detox/hepatitis C -Continue with the opiate withdrawal protocol -We will have her follow-up with [facility] as an outpatient -Discussed that she cannot receive treatment for hepatitis C until she undergoes detox and stays clean -She was tested for HIV in November and this was negative will not retest at this time 2. Dehydrated/COVID-19 -Not sure why she is refusing to take any p.o. intake, she denies any abdominal pain, or nausea. -She has completed her opiate withdrawal protocol -She got a 1 L bolus today and will start her on IV fluids and check labs in the morning hopefully with hydration she will feel better -Cultures are pending, antigen was positive for COVID-19 will confirm with the PCR. She is not hypoxic or symptomatic therefore no need for remdesivir or Decadron at this time leukocytosis has resolved with no intervention DVT: Ambulation Charges/Coding Visit Charges Inpatient E&M: 07568 Subs Hosp L2
--- NOTE | 2021-01-26 14:38 | CM.ED ---
Addendum entered by Jennifer Benavides 01/26/21 17:07: SW called Treatment Navigator and she said that patient is still on [facility] caseload. JULIEN is unaware of any resources for covid + housing placements . Original Note: JULIEN Note Referral Source: Director Speech And Hearing Referral Reason: opiate OD, + covid and homeless SW called patient 4 times ( 11:54am, 12:18am, 1:43 pm and 2:10pm) and went to voice mail. SW spoke to [place]. He said that patients phone might not be in the room as patient was a [facility] patient. Plan: To be determined Jennifer DELVALLE
[2021-01-26 16:42] VITALS: BP 118/66; PULSE 100; RESP 18; TEMP 37.5; O2SAT 97
--- NOTE | 2021-01-26 17:23 | CASEMGMT ---
SW Note JULIEN spoke to Mikki, patient's RN. She said that patient has been sleeping. Mikki said that patient's plan is to follow up with [facility] at discharge. Mikki said that they are doing the PCR to ensure the accuracy of the rapid test. Patient's mother is unable to have patient stay there as patient's mother cares for 6 grandchildren and does not allow patient there when using. Waiting on the PCR test result to confirm the accuracy of covid test. Plan: To be determined Jennifer DELVALLE
[2021-01-26 21:18] VITALS: BP 113/63; PULSE 93; RESP 18; TEMP 37.2; O2SAT 95
[2021-01-27] MEDS: 0.9% Normal Saline 1,000 ML 100 ML IV ×2 (02:11→15:02)
[2021-01-27 02:15] VITALS: BP 118/68; PULSE 80; RESP 14; TEMP 36.7; O2SAT 98
[2021-01-27 06:37] LABS: Absolute Lymphocyte Count 2.79 X10^3/uL (0.83-4.51); Absolute Neutrophil Count 4.4 X10^3/uL (2.0-7.7); Basophil# 0.02 X10^3/uL; Basophil% 0.2 % (0-1); Eosinophil# 0.19 X10^3/uL; Eosinophils% 2.3 % (0-5); Hematocrit 34.6 % (37-47); Hemoglobin 10.7 g/dL (12.0-15.0); Lymphocyte # 2.79 X10^3/ul (0.83-4.51); Lymphocyte % 33.5 % (19-41); Mean Corp Hgb Conc 30.9 g/dL (32-36); Mean Corpuscular Hgb 26.4 pg (27.0-32.0); Mean Corpuscular Volume 85.4 fL (81-99); Mean Platelet Vol. 9.7 fl (6.2-12.0); Monocyte# 0.93 X10^3/uL; Monocyte% 11.2 % (0-10); NRBC Flagged by Analyzer 0 % (0-5); Neutrophil # 4.36 X10^3/uL (2.7-7.7); Neutrophil % 52.2 % (47-70); Platelet Count 375 K/mm3 (150-450); RBC Distribution Width CV 13.5 % (11.6-14.6); RBC Distribution Width SD 42.7 fl (35.1-43.9); Red Blood Count 4.05 M/mm3 (4.2-5.4); White Blood Count 8.3 K/mm3 (4.4-11.0)
[2021-01-27 07:10] LABS: Anion Gap 2 (5-15); BUN 9 mg/dL (7-18); Calcium,Total 8.7 mg/dL (8.5-10.1); Chloride 107 mmol/L (98-107); Creatinine, Serum 0.45 mg/dL (0.55-1.02); EST Glomerular Filtration Rate 167 mL/min (>60); Est Glom Filt Rate - Afr Amer 202 mL/min (>60); Estimated Creatinine Clearance 131.51 ml/min; Glucose 87 mg/dL (74-106); Potassium 4.3 mmol/L (3.5-5.1); Sodium Level 137 mmol/L (136-145)
[2021-01-27 08:15] VITALS: BP 122/73; PULSE 86; RESP 16; TEMP 36.2; O2SAT 98
[2021-01-27] MEDS: Cephalexin 500 MG Capsule PO ×3 (10:23→21:49)
--- NOTE | 2021-01-27 12:55 | PCM.PN.HOSP ---
Subjective Subjective Much better today, more alert. Confirmatory PCR did come back positive we will have to discuss with 180 discharge plan given that she is homeless and still needs outpatient rehab. Objective Data Objective Data Vital Signs: Vital Signs Temp Pulse Resp BP Pulse Ox 97.1 F L 86 16 122/73 H 98 01/27/21 08:15 01/27/21 08:15 01/27/21 08:15 01/27/21 08:15 01/27/21 08:15 Oxygen Delivery Method Room Air Weight: 106 lb 4.205 oz Body Mass Index (BMI) 19.4 Intake & Output: Intake and Output for Last 24 Hours 01/26/21 01/27/21 01/28/21 03:59 03:59 03:59 Intake Total 2875 / 2875 4266.66 / 4266.66 Balance 2875 / 2875 4266.66 / 4266.66 Medical Nutrition Assessment Dietitian: Malnutrition Criteria Met Start: 01/25/21 13:30 Freq: Status: Active Protocol: Document 01/25/21 13:30 AG (Rec: 01/25/21 13:30 AG [id number]) Nutrition Malnutrition Evidence of Malnutrition Exists Yes Malnutrition (moderate): Social/Behavioral/ Environmental Evidenced By Suboptimal Energy Intake ( Moderate),Weight Loss ( Moderate),Physical Changes ( Mild) Clinical Problem Chronic Disease or Condition Related Malnutrition Etiology moderate malnutrition in context of social/ environmental circumstances r/ t inadequate energy intake d/t drug abuse Signs/Symptoms as evidenced by unintentional wt loss of 23.7#/18% x 9 months, estimated PO intake meeting <75% of estimated energy requirements >3 months, mild muscle wasting/fat loss per physical exam Status Active Problem Recommendation Dietitian Recommendations/Changes continue regular diet; will add 120mL ensure enlive w/ meals d/t signs/symptoms of malnutrition. Recommend close monitoring of electrolytes when pt resumes PO diet- suspect risk for refeeding syndrome. Lab / Micro Data Result Diagrams: 01/27/21 06:24 01/27/21 06:24 Labs: Laboratory Results - last 24 hr 01/26/21 15:31: COVID-19 ([facility]) Detected 01/27/21 06:24: WBC 8.3, RBC 4.05 L, Hgb 10.7 L, Hct 34.6 L, MCV 85.4, MCH 26.4 L, MCHC 30.9 L, RDW Std Deviation 42.7, RDW Coeff of Owen 13.5, Plt Count 375, MPV 9.7, Immature Gran % (Auto) 0.600, Neut % (Auto) 52.2, Lymph % (Auto) 33.5, [place] % (Auto) 11.2 H, Eos % (Auto) 2.3, Baso % (Auto) 0.2, Absolute Neuts (auto) 4.4, Absolute Lymphs (auto) 2.79, Nucleated RBC % 0 01/27/21 06:24: Sodium 137, Potassium 4.3, Chloride 107, Carbon Dioxide 28.0, Anion Gap 2 L, BUN 9, Creatinine 0.45 L, Estim Creat Clear Calc 131.51, Est GFR (MDRD) Af Amer 202, Est GFR (MDRD) Non-Af 167, BUN/Creatinine Ratio 20.0, Glucose 87, Calcium 8.7 Micro: Microbiology 01/25/21 21:55 Urine, Clean Catch Urine Culture - Final Escherichia coli 01/25/21 21:25 Nasal Secretion SARS-CoV-2 Antigen (Rapid) - Final SARS-CoV-2 (COVID 19) Physical Exam Const alert, oriented x3 and no apparent distress General Appearance: cooperative HEENT normocephalic and moist oral mucous membranes Eyes PERRL, EOMs intact bilaterally and conjunctivae normal Neck supple and no JVD Resp normal respiratory effort, no retractions, no use of accessory muscles and clear to auscultation bilaterally Auscultation: Negative for crackles, rales, rhonchi or wheezes Cardio regular rate, regular rhythm, S1 normal heart sound, S2 normal heart sound and no murmurs GI soft to palpation, non-tender and non-distended; Negative for hepatosplenomegaly Extremity no clubbing, cyanosis or edema Skin no rashes or lesions noted Neuro no focal motor deficits and no sensory deficits noted Psych affect normal Appearance: appropriate Assessment & Plan Assessment/Plan (1) Drug abuse: PLAN: 1. Acute opiate overdose requesting detox/hepatitis C -Continue with the opiate withdrawal protocol -We will have her follow-up with 180 as an outpatient -Discussed that she cannot receive treatment for hepatitis C until she undergoes detox and stays clean -She was tested for HIV in November and this was negative will not retest at this time -Trying to decide on disposition secondary to her positive PCR test for outpatient rehab 2. Dehydrated/COVID-19/UTI -Not sure why she is refusing to take any p.o. intake, she denies any abdominal pain, or nausea. -She has completed her opiate withdrawal protocol -She got a 1 L bolus today and will start her on IV fluids and check labs in the morning hopefully with hydration she will feel better -Covid antigen and PCR positive, she remains asymptomatic from the standpoint therefore we will hold off on any remdesivir Decadron. Urine culture shows E. coli that is pansensitive, will continue with Keflex. DVT: Ambulation Charges/Coding Visit Charges Inpatient E&M: 42600 Subs Hosp L2
[2021-01-27 14:15] VITALS: BP 130/62; PULSE 80; RESP 16; TEMP 36.1; O2SAT 100
[2021-01-27 21:52] VITALS: BP 130/75; PULSE 89; RESP 15; TEMP 37.3; O2SAT 100
[2021-01-28] MEDS: 0.9% Normal Saline 1,000 ML 100 ML IV ×2 (01:05→08:43)
[2021-01-28 03:58] VITALS: BP 123/66; PULSE 86; RESP 15; TEMP 37.2; O2SAT 97
[2021-01-28] MEDS: Cephalexin 500 MG Capsule PO ×2 (06:22→13:34)
[2021-01-28 08:45] VITALS: BP 116/71; PULSE 85; RESP 14; TEMP 36.9; O2SAT 98
--- NOTE | 2021-01-28 12:20 | DS.PCM_ITS ---
Providers Date of Admission: 01/22/21 Primary Care Physician: No Primary Care Phys Reason For Visit: OPIATE OVERDOSE Diagnosis Discharge Diagnosis (1) Drug abuse: Status: Acute Code(s): F19.10 - Other psychoactive substance abuse, uncomplicated Medications at Discharge Home Medications cephalexin 500 mg PO Q8 #6 cap 01/28/21 Hospital Course Operations None Summary of Care Provided Minutes Spent on Discharge: 38 Hospital Course: Genesis Diaz is a 35-year-old female who presented to the emergency department on 01/22/2021 after an opiate overdose. She was evidently using fentanyl on the morning of admission in combination with methamphetamines and became unresponsive. The EMS was called and gave her a dose of Narcan which did improve her responsiveness but she remained lethargic. She expressed to the emergency department physician that she wanted detox. She was admitted to the hospitalist service and placed on buprenorphine as a taper with supportive medications for symptoms. She had a negative HIV test in November of this year. She was doing well with her taper but ended up with a fever of 100.9 on the evening of 01/25/2021 and blood cultures were obtained which were negative, a Covid test was performed which was positive, and a urine culture was performed and showed a sensitive E. coli urinary tract infection. She was placed on Keflex and has had 1 day of antibiotics at the time of discharge. She was discharged to continue a 3-day course of antibiotics for urinary tract infection. She is to follow-up with 180. She had an appointment on the third but given her fever was not discharged. Per discussion with case management she is to call tomorrow morning and make an appointment. She will require 14 days of isolation for Covid after discharge. This was discussed with the patient. The patient acknowledged the fact that she had 180s phone number and will call tomorrow and that she is aware she may not be able to follow-up immediately give n her Covid positivity status. Discharge diagnoses: Acute opiate overdose Opiate abuse Methamphetamine abuse COVID-19 infection Urinary tract infection-E. coli Chronic hepatitis C Active IVDU Tobacco abuse Physical Exam Narrative Patient states her abdominal pain is improved and she is eating and drinking well. Const alert, oriented x3, no apparent distress and average body habitus Constitutional Narrative: Thin white middle-aged female, lying in bed, appears much older than stated age, appears nontoxic, on room air General Appearance: cooperative, comfortable, well developed and disheveled Orientation / Consciousness: awake Exam Limitations: no limitations HEENT normocephalic, head/scalp atraumatic, hearing grossly normal bilaterally and moist oral mucous membranes Eyes PERRL, EOMs intact bilaterally and conjunctivae normal Neck no lymphadenopathy, supple and no JVD Neck Narrative: Trachea midline, no thyroid enlargement noted Resp normal respiratory effort, no retractions, no use of accessory muscles and clear to auscultation bilaterally Auscultation: Negative for crackles, rales, rhonchi or wheezes Cardio regular rate, regular rhythm, S1 normal heart sound, S2 normal heart sound, no murmurs, no rub, no gallops, no clicks and no JVD GI normal to inspection, nondistended, normoactive bowel sounds, soft to palpation, non-tender and non-distended Extremity no clubbing, cyanosis or edema Skin no rashes or lesions noted, skin turgor normal and no jaundice Skin Narrative: Few scattered lesions from picking but no signs of infection Neuro oriented x3, CN's II-XII intact bilaterally, moves all extremities and no focal motor deficits Sensorium / Orientation: awake, alert, oriented to person, oriented to place and oriented to time Speech: speech normal Psych Psych Narrative: Affect is flat eye contact is fair Medical Records Data Medical Nutrition Assessment Dietitian: Malnutrition Criteria Met Start: 01/25/21 13:30 Freq: Status: Active Protocol: Document 01/25/21 13:30 (Rec: 01/25/21 13:30 [id number]) Nutrition Malnutrition Evidence of Malnutrition Exists Yes Malnutrition (moderate): Social/Behavioral/ Environmental Evidenced By Suboptimal Energy Intake ( Moderate),Weight Loss ( Moderate),Physical Changes ( Mild) Clinical Problem Chronic Disease or Condition Related Malnutrition Etiology moderate malnutrition in context of social/ environmental circumstances r/ t inadequate energy intake d/t drug abuse Signs/Symptoms as evidenced by unintentional wt loss of 23.7#/18% x 9 months, estimated PO intake meeting <75% of estimated energy requirements >3 months, mild muscle wasting/fat loss per physical exam Status Active Problem Recommendation Dietitian Recommendations/Changes continue regular diet; will add 120mL ensure enlive w/ meals d/t signs/symptoms of malnutrition. Recommend close monitoring of electrolytes when pt resumes PO diet- suspect risk for refeeding syndrome. Weight / BMI Weight Weight: 48.2 kg Body Mass Index (BMI) 19.4 ABG / Lab / Microbiology Data Result Diagrams: 01/27/21 06:24 01/27/21 06:24 Microbiology: Microbiology 01/25/21 21:32 Blood Culture (Wb) - Left Hand Blood Culture - Preliminary No growth in 48 hours. 01/25/21 21:15 Blood Culture (Wb) - Anticubital Right Blood Culture - Preliminary No growth in 48 hours. 01/25/21 21:55 Urine, Clean Catch Urine Culture - Final Escherichia coli 01/25/21 21:25 Nasal Secretion SARS-CoV-2 Antigen (Rapid) - Final SARS-CoV-2 (COVID 19) D/C Instructions Discharge Diet: No restrictions Discharge Activity: Return to Normal Activity Meaningful Use Info Meaningful Use Diagnoses (Choose all that apply): None applicable Discharge Plan Admission Admit Date/Time: 01/22/21 12:57 Primary Reason for Your Visit: Opiate overdose Attending Provider: Leida Ellis Primary Care Provider: Care Physician,No Primary Instructions Additional Instructions / Restrictions: 1.Please call 180 tomorrow morning for a follow-up appointment as directed per our conversation on the day of discharge 01/28/2021 2. Please self quarantine for total of 14 days from diagnosis--> quarantine stop date 02/07/2021 Discharge Orders/Prescriptions Prescriptions: New cephalexin 500 mg Capsule 500 mg PO Q8 Qty: 6 RF: 0 Referrals / Follow Up: Gracie Medina [NON-STAFF] - Within 2 Weeks Care Physician,No Primary [Primary Care Provider] - Disposition Disposition (needs filled in before D/C Order can be placed): Home, Self Care Charges/Coding Visit Charges Inpatient E&M: 81108 Disch Hosp
--- NOTE | 2021-01-28 12:40 | PCM.DC ---
Discharge Instructions Diet Discharge Diet: No restrictions Follow Up Care Test Results: Test results from this visit will be discussed in further detail at your follow-up appointment, if applicable. Discharge Plan Admission Admit Date/Time: 01/22/21 12:57 Primary Reason for Your Visit: Opiate overdose Attending Provider: Leida Ellis Primary Care Provider: Care Physician,No Primary Instructions Additional Instructions / Restrictions: 1.Please call 180 tomorrow morning for a follow-up appointment as directed per our conversation on the day of discharge 01/28/2021 2. Please self quarantine for total of 14 days from diagnosis--> quarantine stop date 02/07/2021 Discharge Orders/Prescriptions Prescriptions: New cephalexin 500 mg Capsule 500 mg PO Q8 Qty: 6 RF: 0 Referrals / Follow Up: Gracie Medina [NON-STAFF] - Within 2 Weeks Care Physician,No Primary [Primary Care Provider] - Disposition Disposition (needs filled in before D/C Order can be placed): Home, Self Care
[2021-01-28 13:39] VITALS: BP 110/70; PULSE 98; RESP 16; O2SAT 100
--- NOTE | 2021-01-29 14:31 | CASEMGMT ---
CHRISTI STOCKTON Discharge Follow-up Phone Call: SUDHAKAR: Baudilio Strata: 3 Call Date: 01/29/21 Discharge Date: 01/28/21 Time of Call: 1430 Duration:4 Admitting Diagnosis: Covid, Opiate overdose CHRISTI STOCKTON completed follow-up phone call after recent hospitalization. Number listed on chart is for patient's mother. Mother states that patient is being setup with [facility] through [facility]. Mother filled patient's prescriptions without any issues. Mother had no further questions or concerns at this time.
== END 2021-01-28 14:45 | disposition home or self-care (01) | DRG 812 ==
LOC: ED 11:19 → PCU 01-23 08:06
PROVIDERS: Nurse Practitioner Family; Admitting Provider Family Medicine; Emergency Provider Emergency Medicine; Visit Provider Internal Medicine
DX: T40.411A Poisoning by fentanyl or fentanyl analogs, accidental (unintentional), initial encounter (principal); T43.621A Poisoning by amphetamines, accidental (unintentional), initial encounter; U07.1 COVID-19; Z68.1 Body mass index [BMI] 19.9 or less, adult; F17.210 Nicotine dependence, cigarettes, uncomplicated; F11.23 Opioid dependence with withdrawal; F15.10 Other stimulant abuse, uncomplicated; B18.2 Chronic viral hepatitis C; N39.0 Urinary tract infection, site not specified; B96.20 Unspecified Escherichia coli [E. coli] as the cause of diseases classified elsewhere; F14.90 Cocaine use, unspecified, uncomplicated; E86.0 Dehydration
CPT/HCPCS: 36415; 71045; 80048; 80053; 80307; 82077; 83605; 83735; 84100; 84703; 85025; 87040; 87077; 87086; 87088; 87186; 87426; 87635; 99285; H0012; J7030; U0005; A4216; U0003

== ENCOUNTER 2021-03-12 13:05 | Emergency (ER) | payer MEDICAID, SELFPAY ==
[2021-03-12 13:11] VITALS: BP 125/76; PULSE 126; RESP 20; TEMP 36.1; O2SAT 100; BMI 19.8
--- NOTE | 2021-03-12 13:40 | ED.RN ---
PATIENT REQUESTING TO LEAVE. PATIENT IS ALERT, ORIENTED AND ACTING APPROPRIATELY.
== END 2021-03-12 13:35 | disposition left against medical advice (07) ==
LOC: ED 14:12
DX: Z53.21 Procedure and treatment not carried out due to patient leaving prior to being seen by health care provider (principal)

== ENCOUNTER 2021-03-18 22:13 | Observation (INO) | payer MEDICAID, SELFPAY ==
[2021-03-18 22:14] VITALS: BP 115/72; PULSE 125; RESP 12; TEMP 36.2; O2SAT 97
[2021-03-18 22:18] VITALS: BP 115/72; PULSE 121; PULSE 125; RESP 12; TEMP 36.2; O2SAT 96; O2SAT 97
[2021-03-18 22:40] VITALS: RESP 10; O2SAT 92
--- NOTE | 2021-03-18 22:40 | EX.ED.SAOD ---
HPI History of Present Illness Chief Complaint: Overdose Narrative Narrative: Patient presenting for evaluation secondary to an overdose. Patient has an underlying history of polysubstance abuse. Patient was injecting methamphetamine and fentanyl tonight and suffered an overdose situation. Patient was administered Narcan by a friend, EMS was contacted the patient was brought to the emergency department. Patient states that she was just trying to get high, she denies any self injury. She denies any other complaints at this time. [facility] Medical History Accidental overdose Active intravenous drug use Anemia History of hepatitis C History of heroin use History of methamphetamine use Opiate withdrawal Severe protein-calorie malnutrition Status post elective Substance abuse Home Medications NK 03/18/21 [History Last Taken Unknown] Allergy/AdvReac Type Severity Reaction Status Date / Time No Known Allergies Allergy Verified 03/12/21 13:22 Family History Other Cancer Colon cancer Diabetes Heart disease Surgical History Status post Status post tonsillectomy Status post tubal ligation Social History Smoking Status: Current every day smoker tobacco type: cigarettes substance use type: crack/cocaine, IV drugs and methamphetamine ROS ROS ED Constitutional Constitutional ED: Denies chills, fever(s) or weight loss Eyes Eyes: Denies change in vision ENT ENT ED: Denies rhinorrhea or sore throat Cardiovascular Cardiovascular: Denies chest pain Respiratory/Chest Respiratory/Chest: Denies cough Gastrointestinal Gastrointestinal: Denies abdominal pain, constipation, diarrhea, nausea or vomiting Genitourinary Genitourinary ED: Denies dysuria Musculoskeletal Musculoskeletal: Denies myalgias Integumentary Denies rash Neurologic Neurologic: Denies paresthesias or weakness Psychiatric Psychiatric: Denies suicidal ideation Endocrine Endocrinology: Denies polydipsia or polyuria Hematologic/Lymphatic Hematologic/Lymphatic: Denies easy bleeding or easy bruising Allergic/Immunologic Allergic/Immunologic ED: Denies urticaria EXAM Physical Exam Const Vital Signs: 03/18/21 22:14 03/18/21 22:18 03/18/21 22:40 Temperature 97.1 F L 97.1 F L Temperature Source Temporal Temporal Pulse Rate 125 H 125 H Respiratory Rate 12 12 10 L Blood Pressure 115/72 115/72 Blood Pressure Mean 86 86 Pulse Ox 97 97 92 Oxygen Delivery Method Room Air Room Air Room Air 03/18/21 22:48 03/18/21 23:11 03/19/21 00:03 Temperature Temperature Source Pulse Rate 120 H Respiratory Rate 12 18 Blood Pressure 115/64 113/57 L Blood Pressure Mean 81 75 Pulse Ox 95 97 Oxygen Delivery Method Room Air Room Air Positive well nourished and well developed Constitutional Narrative: Patient is thin in build, not acutely distressed General Appearance ED: well developed HEENT atraumatic; Negative for tenderness Eyes EOMs intact bilaterally Eyes Narrative: Pupils are pinpoint bilaterally General Eye ED: Negative for pale conjunctiva or scleral icterus Neck no lymphadenopathy and supple Chest Wall inspection of chest normal Resp normal respiratory effort and clear to auscultation bilaterally Cardio regular rhythm, no murmurs and peripheral pulses 2+ throughout Rate: tachycardic GI soft to palpation, non-tender, non-distended and no masses Extremity General Extremety ED: Negative for edema or tenderness General Extremity: Negative for edema Neuro oriented x3 and no sensory deficits noted Sensorium / Orientation: alert Motor Exam: strength 5/5 throughout Psych Psych Narrative: No suicidal homicidal ideations, no signs of hallucinations Patient is mildly somnolent but easily aroused, follows commands Skin Lesions: no lesions Rashes: no rashes MDM MDM MDM Narrative Medical decision making narrative: Patient presented secondary to an accidental opiate and methamphetamine overdose. She received Narcan prior to arrival. In the emergency department she became somnolent and required a subsequent intranasal dose of Narcan. She was placed on continuous monitoring Repeat evaluation of the patient at 0115 shows her to continue to be resting comfortably. She arouses to stimuli, is not hypoxic, but does still seem somewhat somnolent. We will continue to observe the patient until morning until she is more clinically awake. I do not believe that further work-up or intervention is indicated currently. Patient will be discharged when she is more sober in the later morning hours. Discharge Plan Triage Chief Complaint: Overdose ED Provider: Omero Herndon Dx/Rx/DC Orders Clinical Impression: Opiate overdose Instructions: ED Overdose, Opiate Prescriptions: No Action NK RF: 0 Primary Care Provider: Care Physician,No Primary Referrals: Gracie Medina [NON-STAFF] - Care Physician,No Primary [Primary Care Provider] - Disposition Disposition: Home, Self Care
[2021-03-18] MEDS: Naloxone 2 MG/2 ML Syringe NASAL (22:46)
[2021-03-18 22:48] VITALS: RESP 12; O2SAT 95
[2021-03-18 23:11] VITALS: BP 115/64; PULSE 120; RESP 18; O2SAT 97
[2021-03-19] VITALS (12 sets, daily range): BP systolic 103–114; BP diastolic 57–82; PULSE 72–107; RESP 14–18; TEMP 36.2–36.9; O2SAT 97–100; BMI 19.5
--- NOTE | 2021-03-19 07:05 | NURSING ---
DR LISA FOR DR ALVARADO
[2021-03-19 07:07] LABS: Amphetamine Urine VISTA POSITIVE (<1000 ng/mL); Barbiturate Urine VISTA NEGATIVE (< 200 ng/mL); Benzodiazepine Urine VISTA NEGATIVE (< 200 ng/mL); Cocaine Urine VISTA POSITIVE (< 300 ng/mL); Ecstacy Urine VISTA POSITIVE (< 500 ng/mL); Methadone Urine VISTA NEGATIVE (< 300 ng/mL); PCP Urine VISTA NEGATIVE (< 25 ng/mL); THC Urine VISTA NEGATIVE (< 50 ng/mL); Vista UDS pH Range 5
--- NOTE | 2021-03-19 07:10 | NURSING ---
MED SURG [place]OT[place]IS OPIATE AND AMPHETAMINE DEPENDENCE
[2021-03-19 07:11] LABS: Absolute Lymphocyte Count 3.61 X10^3/uL (0.83-4.51); Absolute Neutrophil Count 7.9 X10^3/uL (2.0-7.7); Basophil# 0.06 X10^3/uL; Basophil% 0.5 % (0-1); Eosinophil# 0.23 X10^3/uL; Eosinophils% 1.8 % (0-5); Hematocrit 37.6 % (37-47); Hemoglobin 11.7 g/dL (12.0-15.0); Lymphocyte # 3.61 X10^3/ul (0.83-4.51); Lymphocyte % 27.9 % (19-41); Mean Corp Hgb Conc 31.1 g/dL (32-36); Mean Corpuscular Hgb 25.8 pg (27.0-32.0); Mean Corpuscular Volume 82.8 fL (81-99); Mean Platelet Vol. 9.1 fl (6.2-12.0); Monocyte# 1.12 X10^3/uL; Monocyte% 8.7 % (0-10); NRBC Flagged by Analyzer 0 % (0-5); Neutrophil # 7.88 X10^3/uL (2.7-7.7); Neutrophil % 60.8 % (47-70); Platelet Count 405 K/mm3 (150-450); RBC Distribution Width CV 13.3 % (11.6-14.6); RBC Distribution Width SD 40.4 fl (35.1-43.9); Red Blood Count 4.54 M/mm3 (4.2-5.4); White Blood Count 12.9 K/mm3 (4.4-11.0)
[2021-03-19 07:28] LABS: ALB/GLOB Ratio 0.6 RATIO (0.9-2.4); AST(SGOT) 34 U/L (15-37); Alanine Aminotransfer ALT/SGPT 44 U/L (13-56); Albumin, Serum 3.1 g/dL (3.2-5.0); Alkaline Phosphatase 99 U/L (45-117); Anion Gap 9 (5-15); BUN 14 mg/dL (7-18); BUN/Creat Ratio 21.5 RATIO (10-20); Chloride 102 mmol/L (98-107); Creatinine, Serum 0.65 mg/dL (0.55-1.02); EST Glomerular Filtration Rate 109 mL/min (>60); Est Glom Filt Rate - Afr Amer 132 mL/min (>60); Estimated Creatinine Clearance 90.29 ml/min; Globulin 5.2 g/dL (2.2-4.2); Glucose 88 mg/dL (74-106); Potassium 3.9 mmol/L (3.5-5.1); Protein, Total 8.3 g/dL (6.4-8.2); Sodium Level 136 mmol/L (136-145)
[2021-03-19 07:41] LABS: Internal QC Validated? YES +Cl - CLEAR BKGD; Pregnancy, Serum, hCG Quali. NEGATIVE Negative
[2021-03-19 07:46] LABS: Alcohol, Blood (Medical)-Serum < 3.0 mg/dL
--- NOTE | 2021-03-19 13:36 | NURSING ---
Pandemic Documentation Initiated Emergency Documentation Start: 03/19/21 0740 Freq: ONCE Status: Active Protocol:
--- NOTE | 2021-03-19 13:53 | ADDICTION ---
This fiction and nonfiction prose writer attempted to meet with PT. PT was asleep and did not rouse to verbal queuing. This fiction and nonfiction prose writer will attempt to meet with PT at next visit on 03/20/21.
--- NOTE | 2021-03-19 18:25 | HP.PCM.HOS_ITS ---
HPI - General General Date of Admission: 03/19/21 HPI Narrative SACHI BRADFORD, is a 35 F who presents to the hospital with an overdose. She became alert enough and requesting detox though it is difficult to evaluate her intent to actually complete rehab. She does have a very cavalier attitude as to her overdose and also how many times she has gone through withdrawal in rehab and also how helpful she finds rehab. She seems to say the right answers to stay in the hospital. When asked her directly how much heroin she used she stated apparently enough to overdose. [facility] Medical History (Updated 03/20/21 @ 10:[address] Solo Petty MD) Accidental overdose Active intravenous drug use Anemia Elevated LFTs History of hepatitis C History of heroin use History of methamphetamine use Opiate withdrawal Severe protein-calorie malnutrition Status post elective Substance abuse Home Medications NK 03/18/21 [History Last Taken Unknown] Allergy/AdvReac Type Severity Reaction Status Date / Time No Known Allergies Allergy Verified 03/12/21 13:22 Family History Other Cancer Colon cancer Diabetes Heart disease Surgical History Status post Status post tonsillectomy Status post tubal ligation Social History Smoking Status: Current every day smoker tobacco type: cigarettes substance use type: crack/cocaine, IV drugs and methamphetamine ROS Constitutional Constitutional: Denies chills, fatigue, fever(s) or malaise Eyes Eyes: Denies blurry vision ENT HEENT: Denies headache(s) or nasal discharge Cardiovascular Cardiovascular: Denies chest pain, dyspnea on exertion or syncope Respiratory/Chest Respiratory/Chest: Denies cough, shortness of breath at rest or shortness of breath with exertion Gastrointestinal Gastrointestinal: Denies constipation, diarrhea, nausea or vomiting Genitourinary Genitourinary: Denies dysuria Neurologic Neurologic: Denies focal weakness, numbness or tremor(s) Psychiatric Psychiatric: Denies anxiety or depression Vital Signs Vital Signs Vital Signs: 03/18/21 22:14 03/18/21 22:18 03/18/21 22:40 Temperature 97.1 F L 97.1 F L Temperature Source Temporal Temporal Pulse Rate 125 H 125 H Respiratory Rate 12 12 10 L Blood Pressure 115/72 115/72 Blood Pressure [BP] Blood Pressure Mean 86 86 Blood Pressure Mean [BP] Blood Pressure Source Blood Pressure Source [BP] Blood Pressure Position Blood Pressure Position [BP] Blood Pressure Location Blood Pressure Location [BP] Pulse Ox 97 97 92 Oxygen Delivery Method Room Air Room Air Room Air 03/18/21 22:48 03/18/21 23:11 03/19/21 00:03 Temperature Temperature Source Pulse Rate 120 H Respiratory Rate 12 18 Blood Pressure 115/64 113/57 L Blood Pressure [BP] Blood Pressure Mean 81 75 Blood Pressure Mean [BP] Blood Pressure Source Blood Pressure Source [BP] Blood Pressure Position Blood Pressure Position [BP] Blood Pressure Location Blood Pressure Location [BP] Pulse Ox 95 97 Oxygen Delivery Method Room Air Room Air 03/19/21 02:22 03/19/21 03:15 03/19/21 04:25 Temperature Temperature Source Pulse Rate 97 107 H Respiratory Rate 18 18 Blood Pressure 107/70 107/72 107/76 Blood Pressure [BP] Blood Pressure Mean 82 83 86 Blood Pressure Mean [BP] Blood Pressure Source Blood Pressure Source [BP] Blood Pressure Position Blood Pressure Position [BP] Blood Pressure Location Blood Pressure Location [BP] Pulse Ox 97 97 Oxygen Delivery Method Room Air Room Air 03/19/21 05:14 03/19/21 06:05 03/19/21 07:06 Temperature Temperature Source Pulse Rate 95 97 97 Respiratory Rate 16 18 18 Blood Pressure 111/78 103/80 111/82 H Blood Pressure [BP] Blood Pressure Mean 89 87 91 Blood Pressure Mean [BP] Blood Pressure Source Blood Pressure Source [BP] Blood Pressure Position Blood Pressure Position [BP] Blood Pressure Location Blood Pressure Location [BP] Pulse Ox 97 97 Oxygen Delivery Method Room Air Room Air 03/19/21 07:13 03/19/21 08:10 03/19/21 13:16 Temperature 97.1 F L 97.5 F L 98.4 F Temperature Source Temporal Oral Temporal Pulse Rate 72 80 84 Respiratory Rate 14 16 16 Blood Pressure 111/82 H 107/68 114/67 Blood Pressure [BP] Blood Pressure Mean 91 81 82 Blood Pressure Mean [BP] Blood Pressure Source Monitor Monitor Blood Pressure Source [BP] Blood Pressure Position Semi-Fowlers Semi-Fowlers Blood Pressure Position [BP] Blood Pressure Location Left Arm Right Arm Blood Pressure Location [BP] Pulse Ox 100 97 99 Oxygen Delivery Method Room Air Room Air Room Air 03/19/21 18:09 Temperature 97.7 F L Temperature Source Oral Pulse Rate 100 Respiratory Rate 14 Blood Pressure Blood Pressure [BP] 106/62 Blood Pressure Mean Blood Pressure Mean [BP] 76 Blood Pressure Source Blood Pressure Source [BP] Monitor Blood Pressure Position Blood Pressure Position [BP] Left Lateral Blood Pressure Location Blood Pressure Location [BP] Right Arm Pulse Ox 99 Oxygen Delivery Method Room Air Weight Weight: 103 lb 9.876 oz Body Mass Index (BMI) 19.5 Physical Exam Const alert, oriented x3 and no apparent distress General Appearance: cooperative HEENT normocephalic and moist oral mucous membranes Eyes PERRL, EOMs intact bilaterally and conjunctivae normal Neck supple and no JVD Resp normal respiratory effort, no retractions, no use of accessory muscles and clear to auscultation bilaterally Auscultation: Negative for crackles, rales, rhonchi or wheezes Cardio regular rate, regular rhythm, S1 normal heart sound, S2 normal heart sound and no murmurs GI soft to palpation, non-tender and non-distended; Negative for hepatosplenomegaly Extremity no clubbing, cyanosis or edema Skin Skin Narrative: Multiple track zavala present Neuro no focal motor deficits and no sensory deficits noted Psych affect normal Appearance: appropriate Results Lab / Micro Data Result Diagrams: 03/19/21 07:05 03/19/21 07:05 Labs: Laboratory Results - last 24 hr 03/19/21 06:45: Urine Opiates Screen NEGATIVE, Urine Methadone Screen NEGATIVE, Ur Barbiturates Screen NEGATIVE, Ur Phencyclidine Scrn NEGATIVE, Ur Amphetamines Screen POSITIVE H, U Methamphetamin-MDMA POSITIVE H, U Benzodiazepines Scrn NEGATIVE, Urine Cocaine Screen POSITIVE H, U Cannabinoids Screen NEGATIVE, Ur Drug Screen Comment 03/19/21 07:05: WBC 12.9 H, RBC 4.54, Hgb 11.7 L, Hct 37.6, MCV 82.8, MCH 25.8 L , MCHC 31.1 L, RDW Std Deviation 40.4, RDW Coeff of Owen 13.3, Plt Count 405, MPV 9.1, Immature Gran % (Auto) 0.300, Neut % (Auto) 60.8, Lymph % (Auto) 27.9, [place] % (Auto) 8.7, Eos % (Auto) 1.8, Baso % (Auto) 0.5, Absolute Neuts (auto) 7.9 H, Absolute Lymphs (auto) 3.61, Nucleated RBC % 0 03/19/21 07:05: Serum , Qual NEGATIVE 03/19/21 07:05: Sodium 136, Potassium 3.9, Chloride 102, Carbon Dioxide 25.0, Anion Gap 9, BUN 14, Creatinine 0.65, Estim Creat Clear Calc 90.29, Est GFR (MDRD) Af Amer 132, Est GFR (MDRD) Non-Af 109, BUN/Creatinine Ratio 21.5 H, Glucose 88, Calcium 9.0, Total Bilirubin 0.30, AST 34, ALT 44, Alkaline Mendez sphatase 99, Total Protein 8.3 H, Albumin 3.1 L, Globulin 5.2 H, Albumin/Globulin Ratio 0.6 L 03/19/21 07:05: Ethyl Alcohol < 3.0 Assessment & Plan Assessment/Plan (1) Opiate overdose: (2) Desire for detoxification: PLAN: 1. Acute opiate overdose requesting detox/hepatitis C -Continue with the opiate withdrawal protocol -We will have her follow-up with 180 as an outpatient -Discussed that she cannot receive treatment for hepatitis C until she undergoes detox and stays clean -She was tested for HIV in November and this was negative will not retest at this time DVT: Ambulation Charges/Coding Visit Charges Inpatient E&M: 76476 Init Hosp L2
[2021-03-19] MEDS: cloNIDine HCl 0.1 MG Tablet PO (20:20)
[2021-03-19] MEDS: Gabapentin 300 MG Capsule PO (20:20)
[2021-03-19] MEDS: Buprenorphine HCl 2 MG TAB.SUBL SL (20:49)
[2021-03-20 00:39] VITALS: BP 100/63; PULSE 82; RESP 15; TEMP 36.6; O2SAT 97
[2021-03-20 04:00] VITALS: O2SAT 96
[2021-03-20 04:39] VITALS: BP 111/62; PULSE 78; RESP 16; TEMP 36.7; O2SAT 96
--- NOTE | 2021-03-20 10:46 | PCM.PN.HOSP ---
Subjective Subjective No issues overnight Objective Data Objective Data Vital Signs: Vital Signs Temp Pulse Resp BP Pulse Ox 98.0 F 78 16 111/62 96 03/20/21 04:39 03/20/21 04:39 03/20/21 04:39 03/20/21 04:39 03/20/21 04:39 Oxygen Flow Rate (L/min) 2 Oxygen Delivery Method Nasal Cannula Weight: 103 lb 9.876 oz Body Mass Index (BMI) 19.5 Lab / Micro Data Result Diagrams: 03/19/21 07:05 03/19/21 07:05 Physical Exam Const alert, oriented x3 and no apparent distress General Appearance: cooperative HEENT normocephalic and moist oral mucous membranes Eyes PERRL, EOMs intact bilaterally and conjunctivae normal Neck supple and no JVD Resp normal respiratory effort, no retractions, no use of accessory muscles and clear to auscultation bilaterally Auscultation: Negative for crackles, rales, rhonchi or wheezes Cardio regular rate, regular rhythm, S1 normal heart sound, S2 normal heart sound and no murmurs GI soft to palpation, non-tender and non-distended; Negative for hepatosplenomegaly Extremity no clubbing, cyanosis or edema Skin Skin Narrative: Multiple track zavala present Neuro no focal motor deficits and no sensory deficits noted Psych affect normal Appearance: appropriate Assessment & Plan Assessment/Plan (1) Opiate overdose: (2) Desire for detoxification: PLAN: 1. Acute opiate overdose requesting detox/hepatitis C -Continue with the opiate withdrawal protocol -We will have her follow-up with 180 as an outpatient -Discussed that she cannot receive treatment for hepatitis C until she undergoes detox and stays clean -She was tested for HIV in November and this was negative will not retest at this time DVT: Ambulation Charges/Coding Visit Charges Inpatient E&M: 94611 Subs Hosp L2
--- NOTE | 2021-03-20 11:17 | ADDICTION ---
This publicity writer met with PT to conduct ASAM, MSE, DUDIT assessments and to plan for d/c. PT A+Ox4 and participated actively. All assessments completed, faxed to [facility] and placed in PT's chart. PT plans to f/u with individual counselor at [facility] for follow-up counseling services. PT did not indicate a need for transportation post d/c from [facility].
[2021-03-20] MEDS: Buprenorphine HCl 2 MG TAB.SUBL SL ×2 (12:22→20:24)
[2021-03-20 12:23] VITALS: BP 101/65; PULSE 81; RESP 16; TEMP 36.7; O2SAT 97
[2021-03-20 16:56] VITALS: BP 102/57; PULSE 92; RESP 14; TEMP 36.5; O2SAT 94
[2021-03-20] MEDS: hydrOXYzine PAM 25 MG Capsule 50 MG PO (20:25)
[2021-03-20] MEDS: traZODone 100 MG Tablet PO (20:25)
[2021-03-20 20:33] VITALS: BP 115/72; PULSE 92; RESP 16; TEMP 36.4; O2SAT 95
[2021-03-21] MEDS: Buprenorphine HCl 2 MG TAB.SUBL SL ×3 (05:00→20:43)
[2021-03-21 05:05] VITALS: BP 114/73; PULSE 85; RESP 16; TEMP 36.3; O2SAT 93
--- NOTE | 2021-03-21 11:15 | PCM.PN.HOSP ---
Subjective Subjective No issues overnight. Continue with opiate withdrawal protocol Objective Data Objective Data Vital Signs: Vital Signs Temp Pulse Resp BP Pulse Ox 97.3 F L 85 16 114/73 93 03/21/21 05:05 03/21/21 05:05 03/21/21 05:05 03/21/21 05:05 03/21/21 05:05 Oxygen Flow Rate (L/min) 2 Oxygen Delivery Method Room Air Weight: 103 lb 9.876 oz Body Mass Index (BMI) 19.5 Medical Nutrition Assessment Dietitian: Malnutrition Criteria Met Start: 03/20/21 14:22 Freq: Status: Active Protocol: Document 03/20/21 14:22 FOUZIA (Rec: 03/20/21 14:22 [facility] [id number]) Nutrition Malnutrition Evidence of Malnutrition Exists Yes Malnutrition (severe): Social/Behavioral/ Environmental Evidenced By Weight Loss (Severe),Physical Changes (Severe) Clinical Problem Chronic Disease or Condition Related Malnutrition Etiology related to drug abuse and inability to consume adequate nutrition to meet estimated nutritional needs Signs/Symptoms as evidenced by 23.5% wt loss in 6 mo and fat/muscle loss in arms/legs/clavicle/orbitals/ temporal areas Status Active Problem Recommendation Dietitian Recommendations/Changes Will continue Regular diet Will provide 8 oz strawberry ensure enlive w/ meals for increased nutrition if consumed. Lab / Micro Data Result Diagrams: 03/19/21 07:05 03/19/21 07:05 Physical Exam Const alert, oriented x3 and no apparent distress General Appearance: cooperative HEENT normocephalic and moist oral mucous membranes Eyes PERRL, EOMs intact bilaterally and conjunctivae normal Neck supple and no JVD Resp normal respiratory effort, no retractions, no use of accessory muscles and clear to auscultation bilaterally Auscultation: Negative for crackles, rales, rhonchi or wheezes Cardio regular rate, regular rhythm, S1 normal heart sound, S2 normal heart sound and no murmurs GI soft to palpation, non-tender and non-distended; Negative for hepatosplenomegaly Extremity no clubbing, cyanosis or edema Skin Skin Narrative: Multiple track zavala present Neuro no focal motor deficits and no sensory deficits noted Psych affect normal Appearance: appropriate Assessment & Plan Assessment/Plan (1) Opiate overdose: (2) Desire for detoxification: PLAN: 1. Acute opiate overdose requesting detox/hepatitis C -Continue with the opiate withdrawal protocol -We will have her follow-up with 180 as an outpatient -Discussed that she cannot receive treatment for hepatitis C until she undergoes detox and stays clean -She was tested for HIV in November and this was negative will not retest at this time DVT: Ambulation Charges/Coding Visit Charges Inpatient E&M: 10341 Subs Hosp L2
[2021-03-21 12:36] VITALS: BP 98/59; PULSE 54; RESP 14; TEMP 36.6; O2SAT 92
--- NOTE | 2021-03-21 12:38 | CASEMGMT ---
Social Work Note SW updated that pt is homeless. SW in to speak with pt. Pt sleeping. SW left housing resources in pt's room. Ngozi Ram ROOF FOREMAN, TRANSPORTATION LOGISTICS [employer]
[2021-03-21 17:54] VITALS: BP 109/74; PULSE 100; RESP 16; TEMP 36.7; O2SAT 98
[2021-03-21] MEDS: Gabapentin 300 MG Capsule PO (18:02)
--- NOTE | 2021-03-21 18:48 | NURSING ---
PER PTS REQUEST, CALLED HER MOM, ERNST, AND REQUESTED HER TO BRING CLOTHES. ERNST WOULD LIKE TO TALK W/CORINE FIRST
[2021-03-21] MEDS: traZODone 100 MG Tablet PO (20:43)
[2021-03-21 20:50] VITALS: BP 119/67; PULSE 100; RESP 18; TEMP 36.1; O2SAT 96
[2021-03-22 08:04] VITALS: BP 106/57; PULSE 95; RESP 18; TEMP 36.5; O2SAT 98
[2021-03-22] MEDS: Buprenorphine HCl 2 MG TAB.SUBL SL (08:23)
--- NOTE | 2021-03-22 11:18 | PCM.DC ---
Discharge Instructions Diet Discharge Diet: No restrictions Activity Discharge Activity: Return to Normal Activity Dressing / Incision Call your doctor if you observe: Fever of 101 or Higher, Shortness of breath, Dizziness, Fainting spells, Swelling in the ankles, Chest pain and Increased palpitations (irregular heartbeat) Follow Up Care Test Results: Test results from this visit will be discussed in further detail at your follow-up appointment, if applicable. Discharge Plan Admission Admit Date/Time: 03/19/21 07:07 Attending Provider: Solo Petty Primary Care Provider: Care Physician,No Primary Discharge Orders/Prescriptions Prescriptions: No Action NK RF: 0 Referrals / Follow Up: Gracie Medina [NON-STAFF] - Care Physician,No Primary [Primary Care Provider] - Disposition Disposition (needs filled in before D/C Order can be placed): Home, Self Care
--- NOTE | 2021-03-22 11:20 | DS.PCM_ITS ---
Providers Date of Admission: 03/19/21 Primary Care Physician: No Primary Care Phys Reason For Visit: OPIATE OVERDOSE Diagnosis Discharge Diagnosis (1) Opiate overdose: Status: Acute Code(s): T40.601A - Poisoning by unspecified narcotics, accidental (unintentional), initial encounter (2) Desire for detoxification: Status: Acute Medications at Discharge Home Medications NK 03/18/21 Hospital Course Operations None Procedures None Summary of Care Provided Minutes Spent on Discharge: 35 Hospital Course: Per HPI: SACHI BRADFORD, is a 35 F who presents to the hospital with an overdose. She became alert enough and requesting detox though it is difficult to evaluate her intent to actually complete rehab. She does have a very cavalier attitude as to her overdose and also how many times she has gone through withdrawal in rehab and also how helpful she finds rehab. She seems to say the right answers to stay in the hospital. When asked her directly how much heroin she used she stated apparently enough to overdose. Hospital Course: 1. Acute opiate overdose requesting detox/hepatitis C -Continue with the opiate withdrawal protocol -We will have her follow-up with 180 as an outpatient -Discussed that she cannot receive treatment for hepatitis C until she undergoes detox and stays clean -She was tested for HIV in November and this was negative will not retest at this time -She completed the opiate withdrawal protocol, I discussed with her the plan for discharge and she expressed understanding of this benefits going home and would like to go home today. Physical Exam Const alert, oriented x3 and no apparent distress General Appearance: cooperative HEENT normocephalic and moist oral mucous membranes Eyes PERRL, EOMs intact bilaterally and conjunctivae normal Neck supple and no JVD Resp normal respiratory effort, no retractions, no use of accessory muscles and clear to auscultation bilaterally Auscultation: Negative for crackles, rales, rhonchi or wheezes Cardio regular rate, regular rhythm, S1 normal heart sound, S2 normal heart sound and no murmurs GI soft to palpation, non-tender and non-distended; Negative for hepatosplenomegaly Extremity no clubbing, cyanosis or edema Skin Skin Narrative: Multiple track zavala present Neuro no focal motor deficits and no sensory deficits noted Psych affect normal Appearance: appropriate Medical Records Data Medical Nutrition Assessment Dietitian: Malnutrition Criteria Met Start: 03/20/21 14:22 Freq: Status: Active Protocol: Document 03/20/21 14:22 FOUZIA (Rec: 03/20/21 14:22 [facility] [id number]) Nutrition Malnutrition Evidence of Malnutrition Exists Yes Malnutrition (severe): Social/Behavioral/ Environmental Evidenced By Weight Loss (Severe),Physical Changes (Severe) Clinical Problem Chronic Disease or Condition Related Malnutrition Etiology related to drug abuse and inability to consume adequate nutrition to meet estimated nutritional needs Signs/Symptoms as evidenced by 23.5% wt loss in 6 mo and fat/muscle loss in arms/legs/clavicle/orbitals/ temporal areas Status Active Problem Recommendation Dietitian Recommendations/Changes Will continue Regular diet Will provide 8 oz strawberry ensure enlive w/ meals for increased nutrition if consumed. Weight / BMI Weight Weight: 103 lb 9.876 oz Body Mass Index (BMI) 19.5 ABG / Lab / Microbiology Data Result Diagrams: 03/19/21 07:05 03/19/21 07:05 D/C Instructions Discharge Diet: No restrictions Call your doctor if you observe: Fever of 101 or Higher, Shortness of breath, Dizziness, Fainting spells, Swelling in the ankles, Chest pain and Increased palpitations (irregular heartbeat) Meaningful Use Info Meaningful Use Diagnoses (Choose all that apply): None applicable Discharge Plan Admission Admit Date/Time: 03/19/21 07:07 Attending Provider: Solo Petty Primary Care Provider: Care Physician,No Primary Discharge Orders/Prescriptions Prescriptions: No Action NK RF: 0 Referrals / Follow Up: Gracie Medina [NON-STAFF] - Care Physician,No Primary [Primary Care Provider] - Disposition Disposition (needs filled in before D/C Order can be placed): Home, Self Care Charges/Coding Visit Charges Inpatient E&M: 27369 Disch Hosp
--- NOTE | 2021-03-22 12:08 | CASEMGMT ---
Social Work Note JULIEN spoke with [place], Addiction Therapist. Pt's mom is picking pt up from [facility]. JULIEN updated RN. Ngozi Ram TOUR BUS DRIVER/GUIDE, SECURITY SYSTEMS INTEGRATOR
[2021-03-22 15:00] VITALS: BP 130/71; PULSE 105; RESP 18; TEMP 36.8; O2SAT 98
== END 2021-03-22 15:04 | disposition home or self-care (01) | DRG 816 ==
LOC: ED 03-19 06:40 → MS3 03-20 07:23
PROVIDERS: Admitting Provider Family Medicine; Emergency Provider Emergency Medicine; Visit Provider Family Medicine
DX: T40.1X1A Poisoning by heroin, accidental (unintentional), initial encounter (principal); T43.621A Poisoning by amphetamines, accidental (unintentional), initial encounter; F11.23 Opioid dependence with withdrawal; B19.20 Unspecified viral hepatitis C without hepatic coma; F17.210 Nicotine dependence, cigarettes, uncomplicated; F14.10 Cocaine abuse, uncomplicated; F15.10 Other stimulant abuse, uncomplicated
CPT/HCPCS: 36415; 80053; 80307; 82077; 84703; 85025; 99285; H0012

== ENCOUNTER 2021-04-06 03:24 | Emergency (ER) | payer MEDICAID, SELFPAY ==
[2021-04-06 03:25] VITALS: PULSE 83; RESP 20; TEMP 36.4; O2SAT 95; BMI 20.7
[2021-04-06 03:30] VITALS: BP 132/103
--- NOTE | 2021-04-06 03:39 | EX.ED.SAOD ---
HPI History of Present Illness Chief Complaint: Substance Abuse Informant: parent Limited: intoxicated and uncooperative Onset/Context/Timing Onset: Today Narrative Narrative: Patient presents after using methamphetamine and heroin tonight. Patient is sleeping on exam and will not give any further history. Patient was found in an alley tonight. Mother brought the patient to the emergency department because she is high. [facility] Medical History Accidental overdose Active intravenous drug use Anemia Elevated LFTs History of hepatitis C History of heroin use History of methamphetamine use Methamphetamine dependence Opiate withdrawal Severe protein-calorie malnutrition Status post elective Substance abuse Home Medications NK 03/18/21 [History Last Taken Unknown] Allergy/AdvReac Type Severity Reaction Status Date / Time No Known Allergies Allergy Verified 04/06/21 03:28 Family History Other Cancer Colon cancer Diabetes Heart disease Surgical History Status post Status post tonsillectomy Status post tubal ligation Social History Smoking Status: Current every day smoker tobacco type: cigarettes substance use type: crack/cocaine, IV drugs and methamphetamine ROS ROS ED Review of Systems ROS Unobtainable: due to mental status EXAM Physical Exam Const Vital Signs: 04/06/21 03:25 04/06/21 03:30 Temperature 97.6 F L Temperature Source Temporal Pulse Rate 83 Respiratory Rate 20 H Blood Pressure 132/103 H Blood Pressure Mean 112 Pulse Ox 95 Positive unkempt General Appearance ED: unkempt and NAD HEENT Reports moist mucous membranes atraumatic Eyes PERRL Eyes Narrative: Pupils are 2 mm bilaterally but reactive. Neck supple and no JVD Resp normal respiratory effort Auscultation: diminished lung sounds Cardio regular rate and regular rhythm GI soft to palpation and non-distended Neuro Neuro Narrative: Patient is sleeping on exam but moves all extremities. There are no apparent sensory deficits. Motor Exam: strength 5/5 throughout Psych Appearance: unkempt MDM MDM MDM Narrative Medical decision making narrative: Patient was given a dose of naloxone intranasally here. Patient is awake and alert. Patient is eating a sandwich. Patient was given a referral for 180. Patient was instructed to follow-up in 3 to 5 days. Patient was instructed to return if worse in any way. Patient understood and was agreeable with the plan. All questions were answered. Discharge Plan Triage Chief Complaint: Substance Abuse ED Provider: Jerry Albright Dx/Rx/DC Orders Clinical Impression: Opiate overdose, Drug abuse Instructions: ED Drug Abuse, ED Opiate Abuse Prescriptions: No Action NK RF: 0 Primary Care Provider: Care Physician,No Primary Referrals: Care Physician,No Primary [Primary Care Provider] - [facility] [STAFF PHYSICIAN] - 3-5 Days Disposition Disposition: Home, Self Care
[2021-04-06] MEDS: Naloxone 2 MG/2 ML Syringe NASAL (03:48)
--- NOTE | 2021-04-06 04:15 | ED.RN ---
DURING VISIT, PT WAS AWAKE AND TALKING TO STAFF. SHE ASKED FOR CRACKERS AND WATER, GIVEN. PT EATS AND DRINKS WITHOUT DIFFICULTY. CALLED MOM, SHE WILL COME TO GET. MOM UPSET ER IS NOT DOING MORE. ADVISED NARCAN WAS GIVEN AND PT WAS ALERT AND EATING. ENCOURAGED PT TO GET DRESSED HER MOTHER WAS COMING TO PICK HER UP. PT IS REFUSING TO GET UP. INFORMED PT AGAIN THAT HER MOTHER WAS COMING AND THAT SHE NEEDED TO GET UP. OFFERED ASSISTANCE AND SHE DECLINED. SHE IS LEAVING DEPARTMENT, SHE BEGINS YELLING AND CUSSING AT STAFF, UPSET SHE DID NOT GET A DRUG TEST, AFTER SHE ADMITTED SHE TOOK HEROIN AND METH. AFTER PT LEAVES, HER MOTHER CALLS BACK IN UPSET THAT ER DID NOT KEEP AND HELP HER. VERBALIZES SHE THINKS THE ER SHOULD HELP HER CURE HER ADDICTION. ENCOURAGED PT WAS ALERT, EATING AND DRINKING. MOM REPORTS SHE IS GOING TO CALL ADMINISTRATION THURSDAY MORNING AND SEE WHAT HER OPTIONS ARE FOR MAKING THE HOSPITAL HELP HER DAUGHTER. INFORMED MOTHER PT DID NOT WANT HELP FOR ADDICTION. PT CAN BE HEARD YELLING IN THE BACKGROUND. MOM THANKS NURSE FOR TIME AND HANGS UP.
== END 2021-04-06 03:56 | disposition home or self-care (01) ==
LOC: ED 03:54
PROVIDERS: Emergency Provider Emergency Medicine
DX: T40.601A Poisoning by unspecified narcotics, accidental (unintentional), initial encounter (principal); F17.210 Nicotine dependence, cigarettes, uncomplicated
CPT/HCPCS: 96374; 99283

== ENCOUNTER → 2022-03-04 | Outpatient (CLI) | payer MEDICAID, SELFPAY ==
[2022-03-04 13:37] LABS: Hematocrit 37.7 % (37-47); Hemoglobin 11.6 g/dL (12.0-15.0); Mean Corp Hgb Conc 30.8 g/dL (32-36); Mean Corpuscular Hgb 25.4 pg (27.0-32.0); Mean Corpuscular Volume 82.7 fL (81-99); Mean Platelet Vol. 10.1 fl (6.2-12.0); Platelet Count 339 K/mm3 (150-450); RBC Distribution Width CV 15.2 % (11.6-14.6); RBC Distribution Width SD 46.1 fl (35.1-43.9); Red Blood Count 4.56 M/mm3 (4.2-5.4); White Blood Count 8.7 K/mm3 (4.4-11.0)
== END | disposition home or self-care (01) ==
LOC: LAB 12:12
PROVIDERS: Referring Provider Family Medicine; Visit Provider Family Medicine
DX: B18.2 Chronic viral hepatitis C (principal)
CPT/HCPCS: 36415; 85027

== ENCOUNTER → 2022-04-07 | Outpatient (CLI) | payer MEDICAID, SELFPAY | END | disposition home or self-care (01) | PROVIDERS: Visit Provider Family Medicine | DX: B18.2 Chronic viral hepatitis C (principal) | CPT/HCPCS: 36415 ==

== ENCOUNTER → 2022-06-09 | Outpatient (CLI) | payer MEDICAID, SELFPAY ==
[2022-06-09 13:38] LABS: Absolute Lymphocyte Count 3.63 X10^3/uL (0.83-4.51); Basophil# 0.08 X10^3/uL; Basophil% 0.9 % (0-1); Eosinophil# 0.53 X10^3/uL; Eosinophils% 5.9 % (0-5); Hematocrit 41.1 % (37-47); Hemoglobin 12.5 g/dL (12.0-15.0); Lymphocyte # 3.63 X10^3/ul (0.83-4.51); Lymphocyte % 40.3 % (19-41); Mean Corp Hgb Conc 30.4 g/dL (32-36); Mean Corpuscular Volume 82.2 fL (81-99); Mean Platelet Vol. 10.3 fl (6.2-12.0); Monocyte# 0.76 X10^3/uL; Monocyte% 8.4 % (0-10); NRBC Flagged by Analyzer 0 % (0-5); Neutrophil # 3.98 X10^3/uL (2.7-7.7); Neutrophil % 44.3 % (47-70); Platelet Count 443 K/mm3 (150-450); RBC Distribution Width CV 13.3 % (11.6-14.6); RBC Distribution Width SD 39.7 fl (35.1-43.9)
[2022-06-09 14:11] LABS: Vitamin B12 749 pg/mL (211-911); Vitamin D,25 Hydroxy 18.1 ng/mL
[2022-06-09 14:16] LABS: Hemoglobin A1c 5.6 % (3.8-5.6)
[2022-06-09 14:24] LABS: ALB/GLOB Ratio 0.9 RATIO (0.9-2.4); AST(SGOT) 19 U/L (15-37); Alanine Aminotransfer ALT/SGPT 21 U/L (13-56); Alkaline Phosphatase 69 U/L (45-117); Anion Gap 9 (5-15); BUN 11 mg/dL (7-18); BUN/Creat Ratio 13.8 RATIO (10-20); Calcium,Total 8.9 mg/dL (8.5-10.1); Chloride 101 mmol/L (98-107); Cholesterol 230 mg/dL (200); EST Glomerular Filtration Rate 86 mL/min (>60); Est Glom Filt Rate - Afr Amer 104 mL/min (>60); Globulin 4.5 g/dL (2.2-4.2); Glucose 82 mg/dL (74-106); High Density Lipoprotein 86 mg/dL; Potassium 4.4 mmol/L (3.5-5.1); Protein, Total 8.5 g/dL (6.4-8.2); Sodium Level 135 mmol/L (136-145); T4 Free Direct 1.08 ng/dL (0.76-1.46); Thyroid Stim Hormone (TSH) 1.59 uIU/mL (0.358-3.74); Triglycerides 88 mg/dL; Very Low Density Lipoprotein 18 mg/dL (5-40)
[2022-06-11 22:18] LABS: HCV Quant. RNA PCR <15 IU/mL (.)
== END | disposition home or self-care (01) ==
LOC: LAB 12:16
PROVIDERS: Referring Provider Registered Nurse; Visit Provider Registered Nurse
DX: F41.1 Generalized anxiety disorder (principal); B18.2 Chronic viral hepatitis C; F43.12 Post-traumatic stress disorder, chronic
CPT/HCPCS: 36415; 80053; 80061; 82306; 82607; 82746; 83036; 84439; 84443; 85025; 87522

== ENCOUNTER 2022-10-27 22:39 | Emergency (ER) | payer MEDICAID, SELFPAY ==
[2022-10-27 22:40] VITALS: BP 142/105; PULSE 124; RESP 15; TEMP 36.4; O2SAT 98; BMI 24.4
--- NOTE | 2022-10-27 23:00 | EKG12_ITS ---
Test Reason : DYSRHYTHMIA Blood Pressure : / mmHG Vent. Rate : 093 BPM Atrial Rate : 093 BPM P-R Int : 154 ms QRS Dur : 072 ms QT Int : 344 ms P-R-T Axes : 061 074 040 degrees QTc Int : 427 ms Normal sinus rhythm Normal ECG Confirmed by BILL SEVERINO, DEBORA ([id number]), writer editor BERNICE STOVALL ([id number]) on 10/29/2022 9:04:19 AM Referred By: MINERVA Confirmed By:DEBORA KHAN MD
[2022-10-27 23:25] LABS: Internal QC Validated? YES +Cl - CLEAR BKGD; Pregnancy, Serum, hCG Quali. NEGATIVE Negative
[2022-10-27 23:33] LABS: AST(SGOT) 47 U/L (15-37); Alanine Aminotransfer ALT/SGPT 32 U/L (13-56); Albumin, Serum 4.2 g/dL (3.2-5.0); Alkaline Phosphatase 62 U/L (45-117); Anion Gap 7 (5-15); BUN 16 mg/dL (7-18); BUN/Creat Ratio 19.1 RATIO (10-20); Calcium,Total 9.2 mg/dL (8.5-10.1); Chloride 107 mmol/L (98-107); Creatinine, Serum 0.84 mg/dL (0.55-1.02); EST Glomerular Filtration Rate 81 mL/min (>60); Est Glom Filt Rate - Afr Amer 98 mL/min (>60); Estimated Creatinine Clearance 71.82 ml/min; Glucose 87 mg/dL (74-106); Potassium 3.5 mmol/L (3.5-5.1); Protein, Total 8.2 g/dL (6.4-8.2); Sodium Level 139 mmol/L (136-145)
[2022-10-27 23:40] LABS: Amphetamine Urine VISTA POSITIVE (<1000 ng/mL); Barbiturate Urine VISTA NEGATIVE (< 200 ng/mL); Benzodiazepine Urine VISTA NEGATIVE (< 200 ng/mL); Cocaine Urine VISTA NEGATIVE (< 300 ng/mL); Ecstacy Urine VISTA POSITIVE (< 500 ng/mL); Methadone Urine VISTA NEGATIVE (< 300 ng/mL); PCP Urine VISTA NEGATIVE (< 25 ng/mL); THC Urine VISTA NEGATIVE (< 50 ng/mL); Vista UDS pH Range 4
[2022-10-27 23:57] LABS: White Blood Cells 0 SEEN /hpf (0-5)
[2022-10-28] LABS: Color, Urine Yellow (Yellow); Glucose, Dipstick Normal (Normal); Ketone-Dipstick 15 mg/dl (Negative); Leukocyte Esterase-Dipstick Negative /ul (Negative); Nitrite-Dipstick Negative (Negative); Occult Blood-Urine 150 /ul (Negative); Protein-Dipstick 15 mg/dl (Negative); Urine Bilirubin Dipstick Negative (Negative); Urine Clarity Clear (Clear); Urine Urobilinogen Normal (Normal)
[2022-10-28] MEDS: FLUCONAZOLE 150 MG TABLET PO (00:17)
[2022-10-28 00:33] LABS: CPK Total, Creatine Kinase 1150 U/L (26-192)
[2022-10-28 00:47] LABS: Bacteria 2+ /hpf (None Seen); Mucous, Urine 2+ /hpf (<or=2+); Red Blood Cells-Urine 10-25 SEEN /hpf (0-5); Squamous Epithelial Cells - UA 5-10 SEEN /hpf (5-10)
--- NOTE | 2022-10-28 01:04 | EDS_ITS ---
HPI History of Present Illness
--- NOTE | 2022-10-28 01:04 | EX.ED.SAOD ---
HPI History of Present Illness Chief Complaint: Substance Abuse Informant: patient Narrative Narrative: Patient is a 37-year-old female with history of polysubstance abuse presenting for detox. Patient initially told triage that she was presenting for heroin detox. She tells me that she has not used heroin in months if not a year and did recently relapse with methamphetamine. She states she first used on , 5 days ago. Patient states she spoke with [facility] as she is also trying to get help with housing she is currently with her parents. Her parents want her to detox. [facility] is not able to help her with housing because she does have a job. Patient states that she is following regularly with her motorcycle police officer and is in an IOP which she has not missed any meetings where. She does not think she needs inpatient detox from meth. She denies any other complaints at this time. She notes she does feel safe at home. Denies any suicidal homicidal ideations. Patient states she was triggered by her cousin who overdosed Patient does mention to me that she is worried she has yeast infection [facility] Medical History Accidental overdose Active intravenous drug use Anemia Elevated LFTs History of hepatitis C History of heroin use History of methamphetamine use Methamphetamine dependence Opiate withdrawal Severe protein-calorie malnutrition Status post elective Substance abuse Home Medications NK 03/18/21 [History Last Taken Unknown] Allergy/AdvReac Type Severity Reaction Status Date / Time No Known Allergies Allergy Verified 10/27/22 22:43 Family History Other Cancer Colon cancer Diabetes Heart disease Surgical History Status post Status post tonsillectomy Status post tubal ligation Social History Smoking Status: Current every day smoker tobacco type: cigarettes substance use type: crack/cocaine, IV drugs and methamphetamine ROS ROS ED Constitutional Constitutional ED: Denies chills or fever(s) Cardiovascular Cardiovascular: Denies chest pain or palpitations Respiratory/Chest Respiratory/Chest: Denies cough Gastrointestinal Gastrointestinal: Denies abdominal pain, nausea or vomiting Genitourinary Genitourinary ED: Reports other Details: concern for yeast infection ; Denies dysuria Musculoskeletal Musculoskeletal: Denies arthralgias or myalgias Integumentary Denies abscess Neurologic Neurologic: Denies headache(s) or weakness Psychiatric Psychiatric: Reports anxiety; Denies suicidal ideation or suicidal thoughts Hematologic/Lymphatic Hematologic/Lymphatic: Denies easy bleeding or easy bruising EXAM Physical Exam Const Vital Signs: 10/27/22 22:40 10/28/22 01:09 10/28/22 02:28 Temperature 97.6 F L Temperature Source Temporal Pulse Rate 124 H 103 H 85 Respiratory Rate 15 15 15 Blood Pressure 142/105 H 129/89 H 112/44 L Blood Pressure Mean 117 102 66 Pulse Ox 98 98 96 Oxygen Delivery Method Room Air Room Air Room Air 10/28/22 04:44 10/28/22 05:01 Temperature Temperature Source Pulse Rate 85 Respiratory Rate 15 Blood Pressure 118/54 L 118/54 L Blood Pressure Mean 75 Pulse Ox 96 Oxygen Delivery Method Positive well nourished and well developed General Appearance ED: well developed and NAD HEENT Reports dry mucous membranes Mouth ED: Yes dry mucous membranes Mouth: dry mucous membranes Eyes PERRL and EOMs intact bilaterally Neck supple Chest Wall inspection of chest normal and palpation of chest normal Resp normal respiratory effort and clear to auscultation bilaterally Cardio regular rate, regular rhythm and no murmurs GI non-distended Extremity General Extremety ED: Negative for edema or tenderness General Extremity: Negative for edema Neuro oriented x3 Sensorium / Orientation: alert Psych Psych Narrative: Patient is internally stimulated and has rapid speech. Skin Skin Narrative: Some healing scabbed over abrasions of the right latter-day and face present MDM MDM MDM Narrative Medical decision making narrative: Patient checked in for request of heroin detox. Protocol orders were placed for heroin detox however it turns out patient is not using heroin she has been using methamphetamines. Patient's physical exam is more consistent with methamphetamine intoxication she is internally stimulated. She has rapid speech. She is otherwise acting appropriately. She was tachycardic upon arrival but this has improved. Because of report of methamphetamine use I did check a CK level which is elevated. Decision is made to give patient IV fluids to help the patient cleared. She has normal kidney function. I do not think she has true rhabdomyolysis at this time. Patient denies any homicidal suicidal ideations. Patient counseled that at this time the rehab program does not provide inpatient methamphetamine detox and patient states she does not think she needs it anyway. Patient is discharged home. Patient encouraged to abstain from illicit drug use, continue to follow-up with her IOP and with her motorcycle police officer. Patient did voice concern she had a yeast infection. She was treated with a dose of Diflucan in the emergency room. Lab Data Attestation: I reviewed the patient's lab results. Labs: Laboratory Results - last 24 hr 10/27/22 10/27/22 10/27/22 23:05 23:05 23:05 Sodium 139 Potassium 3.5 Chloride 107 Carbon Dioxide 25.0 Anion Gap 7 BUN 16 Creatinine 0.84 Estim Creat Clear Calc 71.82 Est GFR (MDRD) Af Amer 98 Est GFR (MDRD) Non-Af 81 BUN/Creatinine Ratio 19.1 Glucose 87 Calcium 9.2 Total Bilirubin 0.40 AST 47 H ALT 32 Alkaline Phosphatase 62 Total Creatine Kinase Total Protein 8.2 Albumin 4.2 Globulin 4.0 Albumin/Globulin Ratio 1.0 Serum , Qual NEGATIVE Urine Color Urine Clarity Urine pH Ur Specific [place] Urine Protein Urine Glucose (UA) Urine Ketones Urine Occult Blood Urine Nitrite Urine Bilirubin Urine Urobilinogen Ur Leukocyte Esterase Urine RBC Urine WBC Ur Squamous Epith Cells Urine Bacteria Urine Mucus Urine Opiates Screen Urine Methadone Screen Ur Barbiturates Screen Ur Phencyclidine Scrn Ur Amphetamines Screen MDMA (Ecstasy) Screen U Benzodiazepines Scrn Urine Cocaine Screen U Cannabinoids Screen Ur Drug Screen Comment Ethyl Alcohol 4.0 10/27/22 10/27/22 10/27/22 23:15 23:15 23:25 Sodium Potassium Chloride Carbon Dioxide Anion Gap BUN Creatinine Estim Creat Clear Calc Est GFR (MDRD) Af Amer Est GFR (MDRD) Non-Af BUN/Creatinine Ratio Glucose Calcium Total Bilirubin AST ALT Alkaline Phosphatase Total Creatine Kinase 1150 H Total Protein Albumin Globulin Albumin/Globulin Ratio Serum , Qual Urine Color Yellow Urine Clarity Clear Urine pH 5.0 Ur Specific [place] 1.030 Urine Protein 15 H Urine Glucose (UA) Normal Urine Ketones 15 H Urine Occult Blood 150 H Urine Nitrite Negative Urine Bilirubin Negative Urine Urobilinogen Normal Ur Leukocyte Esterase Negative Urine RBC 10-25 SEEN Urine WBC 0 SEEN Ur Squamous Epith Cells 5-10 SEEN Urine Bacteria 2+ Urine Mucus 2+ Urine Opiates Screen NEGATIVE Urine Methadone Screen NEGATIVE Ur Barbiturates Screen NEGATIVE Ur Phencyclidine Scrn NEGATIVE Ur Amphetamines Screen POSITIVE H MDMA (Ecstasy) Screen POSITIVE H U Benzodiazepines Scrn NEGATIVE Urine Cocaine Screen NEGATIVE U Cannabinoids Screen NEGATIVE Ur Drug Screen Comment Ethyl Alcohol Rhythm Strip Rhythm Strip: Sinus Rhythm Rate: 93 Ectopy: None EKG Initial EKG: Attestation: I personally reviewed and interpreted this EKG as follows: Interpretation: Sinus Rhythm Comments: Normal sinus rhythm at a rate of 93 bpm Normal axis Normal intervals Normal ST segments Discharge Plan Triage Chief Complaint: Substance Abuse ED Provider: Carmen Fletcher Dx/Rx/DC Orders Clinical Impression: Drug abuse, Elevated CPK Instructions: CK, ED Drug Abuse Prescriptions: No Action NK Stand Alone Forms: ED Work / School Excuse Primary Care Provider: Care Physician,No Primary Referrals: Care Physician,No Primary [Primary Care Provider] - [facility] [Non-Staff] - As soon as possible Disposition Disposition: Home, Self Care Discharge Date/Time: 10/28/22 05:03
[2022-10-28] MEDS: 0.9% Normal Saline 1,000 ML 999 ML IV (01:07)
[2022-10-28 01:09] VITALS: BP 129/89; PULSE 103; RESP 15; O2SAT 98
[2022-10-28 02:28] VITALS: BP 112/44; PULSE 85; RESP 15; O2SAT 96
[2022-10-28 04:44] VITALS: BP 118/54
[2022-10-28 05:01] VITALS: BP 118/54; PULSE 85; RESP 15; O2SAT 96
== END 2022-10-28 05:03 | disposition home or self-care (01) ==
PROVIDERS: Emergency Provider Emergency Medicine; Visit Provider Emergency Medicine
DX: F11.10 Opioid abuse, uncomplicated (principal); F17.210 Nicotine dependence, cigarettes, uncomplicated; R74.8 Abnormal levels of other serum enzymes
CPT/HCPCS: 80053; 80307; 81001; 82077; 82550; 84703; 93005; 96360; 99283; J7030

== ENCOUNTER → 2022-11-04 | Outpatient (CLI) | payer MEDICAID, SELFPAY ==
[2022-11-05 15:08] LABS: HCV Quant. RNA PCR HCV Not Detected IU/mL (.)
== END | disposition home or self-care (01) ==
LOC: LAB 12:05
PROVIDERS: Referring Provider Family Medicine; Visit Provider Family Medicine
DX: B19.20 Unspecified viral hepatitis C without hepatic coma (principal)
CPT/HCPCS: 36415; 87522

== ENCOUNTER 2023-03-10 14:08 | Emergency (ER) | payer MEDICAID, SELFPAY ==
[2023-03-10 14:09] VITALS: BP 96/70; PULSE 85; RESP 18; TEMP -12.4; TEMP 9.6; O2SAT 100; BMI 25.2
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
[2023-03-10 16:02] VITALS: O2SAT 99
== END 2023-03-10 17:00 | disposition home or self-care (01) ==
PROVIDERS: Emergency Provider Emergency Medicine; Visit Provider Emergency Medicine
DX: M79.651 Pain in right thigh (principal); M25.521 Pain in right elbow; F17.210 Nicotine dependence, cigarettes, uncomplicated; V49.9XXA Car occupant (driver) (passenger) injured in unspecified traffic accident, initial encounter
CPT/HCPCS: 72100; 73080; 99282

== ENCOUNTER → 2024-07-07 | Outpatient (CLI) | payer MEDICAID, SELFPAY ==
[2024-07-07 16:46] LABS: Absolute Lymphocyte Count 1.88 X10^3/uL (0.83-4.51); Absolute Neutrophil Count 3.5 X10^3/uL (2.0-7.7); Basophil# 0.08 X10^3/uL; Basophil% 1.1 % (0-1); Eosinophil# 0.61 X10^3/uL; Eosinophils% 8.7 % (0-5); Hematocrit 36.8 % (37-47); Hemoglobin 11.5 g/dL (12.0-15.0); Lymphocyte # 1.88 X10^3/ul (0.83-4.51); Lymphocyte % 26.9 % (19-41); Mean Corp Hgb Conc 31.3 g/dL (32-36); Mean Corpuscular Hgb 25.5 pg (27.0-32.0); Mean Corpuscular Volume 81.6 fL (81-99); Mean Platelet Vol. 9.3 fl (6.2-12.0); Monocyte# 0.92 X10^3/uL; Monocyte% 13.1 % (0-10); NRBC Flagged by Analyzer 0 % (0-5); Neutrophil # 3.49 X10^3/uL (2.7-7.7); Neutrophil % 49.9 % (47-70); Platelet Count 371 K/mm3 (150-450); RBC Distribution Width CV 14.9 % (11.6-14.6); RBC Distribution Width SD 44.6 fl (35.1-43.9); Red Blood Count 4.51 M/mm3 (4.2-5.4)
[2024-07-07 17:16] LABS: ALB/GLOB Ratio 0.9 RATIO (0.9-2.4); AST(SGOT) 26 U/L (15-37); Alanine Aminotransfer ALT/SGPT 25 U/L (13-56); Albumin, Serum 3.7 g/dL (3.2-5.0); Alkaline Phosphatase 65 U/L (45-117); Anion Gap 6 (5-15); BUN 10 mg/dL (7-18); BUN/Creat Ratio 11.6 RATIO (10-20); Calcium,Total 8.9 mg/dL (8.5-10.1); Chloride 106 mmol/L (98-107); Cholesterol 172 mg/dL (200); Creatinine, Serum 0.86 mg/dL (0.55-1.02); EST Glomerular Filtration Rate 78 mL/min (>60); Est Glom Filt Rate - Afr Amer 94 mL/min (>60); Globulin 4.1 g/dL (2.2-4.2); Glucose 85 mg/dL (74-106); High Density Lipoprotein 79 mg/dL; Potassium 4.4 mmol/L (3.5-5.1); Protein, Total 7.8 g/dL (6.4-8.2); Sodium Level 138 mmol/L (136-145); Triglycerides 99 mg/dL; Very Low Density Lipoprotein 20 mg/dL (5-40)
[2024-07-07 18:20] LABS: Hemoglobin A1c 5.7 % (3.8-5.6)
[2024-07-11 18:08] LABS: HEPATITIS B SURFACE AG Negative (Negative); Hep B Surface Antibodies Reactive (.); Hepatitis B Core Ab Total Positive (Negative); Hepatitis C Ab Reactive (Non Reactive)
[2024-07-12 14:42] LABS: HIV - WCH Non-Reactive (Nonreactive); Syphilis Antibodies Non-reactive
== END | disposition home or self-care (01) ==
LOC: VSLAB 14:26
PROVIDERS: PCP Nurse Practitioner Family; Visit Provider Nurse Practitioner Family
DX: F19.10 Other psychoactive substance abuse, uncomplicated (principal); Z11.3 Encounter for screening for infections with a predominantly sexual mode of transmission; Z13.6 Encounter for screening for cardiovascular disorders; Z13.228 Encounter for screening for other metabolic disorders
CPT/HCPCS: 36415; 80053; 80061; 83036; 84443; 85025; 86703; 86704; 86705; 86706; 86707; 86780; 86803; 87340; 87350; 87491; 87591

== ENCOUNTER → 2024-08-11 | Outpatient (CLI) | payer MEDICAID, SELFPAY ==
--- NOTE | 2024-08-11 14:08 | BI_ITS ---
EXAM: SCRN MAMM (CAD)W/ESTEVAN BILAT DATE: 08/11/2024 CLINICAL HISTORY: F, Age 39 y/o , SCREENING. BREAST CANCER RISK ASSESSMENT: Not assessed TECHNIQUE: Bilateral screening digital breast tomosynthesis with 2D and 3D images. Computer aided detection. COMPARISON: Baseline study FINDINGS: TISSUE DENSITY: The breast tissue is extremely dense which lowers the sensitivity of mammography. Bilateral Breast Mammographic Findings: No significant masses, calcifications or other abnormalities are identified. BI/SCRN MAMM (CAD)W/ESTEVAN BILAT IMPRESSION: Right Breast: BIRADS 1 NEGATIVE. Left Breast: BIRADS 1 NEGATIVE. OVERALL FINAL ASSESSMENT: BIRADS 1 NEGATIVE RECOMMENDATION: Routine annual follow-up in 1 Year A letter with findings and recommendations will be mailed to the patient. Reading Location: [place] [id number]
[2024-08-13 20:07] LABS: HCV Quant. RNA PCR HCV Not Detected IU/mL (.)
== END | disposition home or self-care (01) ==
PROVIDERS: PCP Nurse Practitioner Family; Referring Provider Nurse Practitioner Family; Visit Provider Nurse Practitioner Family
DX: Z12.31 Encounter for screening mammogram for malignant neoplasm of breast (principal)
CPT/HCPCS: 36415; 77063; 77067; 87522

== ENCOUNTER 2024-11-07 21:32 | Emergency (ER) | payer MEDICAID, SELFPAY ==
[2024-11-07 21:34] VITALS: BP 108/63; PULSE 91; RESP 18; TEMP 36.2; O2SAT 98; BMI 27.9
[2024-11-07] MEDS: 0.9% Normal Saline (1000mL) 1,000 ML 999 ML IV (23:40)
[2024-11-07] MEDS: Ketorolac 30 MG/ML Syringe IV (23:40)
[2024-11-07] MEDS: Metoclopramide 10 MG/2 ML Vial IV (23:40)
[2024-11-07] MEDS: DiphenhydrAMINE 50 MG/ML Syringe 25 MG IV (23:40)
--- OUTSIDE RECORDS SUMMARY | 2024-11-07 23:52 | XMS RPT_ITS | CCD ---
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 complication] Onset: 09-17-2006 Resolved: 03-01-2012 03-01-2012 Episodic Hepatitis (18 sources) Viral hepatitis C; Translations: [Unspecified viral hepatitis C without hepatic coma] Onset: 08-06-2021 08-06-2021 Episodic Other connective tissue disease (18 sources) Non-traumatic rhabdomyolysis; Translations: [Rhabdomyolysis] Onset: 09-13-2021 Episodic Other connective tissue disease (18 sources) Rhabdomyolysis; Translations: [Rhabdomyolysis] Onset: 09-13-2021 Episodic Other and delivery including normal (12 sources) Normal ; Translations: [Encounter for supervision of other normal , unspecified trimester] Onset: 03-02-2006 Resolved: 03-01-2012 03-01-2012 Episodic Residual codes; unclassified (2 sources) History of uterine cervix surgery; Translations: [Other specified postprocedural states] Onset: 03-01-2012 03-01-2012 Episodic Residual codes; unclassified (16 sources) History of loop electrosurgical excision procedure; Translations: [Other specified postprocedural states] Onset: 03-01-2012 03-01-2012 Episodic Unclassified (7 sources) Readiness finding; Translations: [Desire for detoxification] 03-30-2021 Results Test Name Value Interpretation Reference Range Facility [facility] 09-03-2024 CNOV Office Visit (UCWSTR ) GENESIS BRADFORD ([id number]) 1985 F Date Time Provider Department 09/03/24 2:45 PM MARCO ANTONIO ARDON [facility] During your visit today, we recorded the following information about you: Temperature Pulse Respiration Blood pressure 98.5 degrees 87/minute 16/minute 102/68 Weight 65.1 kg Marco Antonio Ardon, WARREN.SCANNER OPERATOR 09/03/2024 3:30 PM Signed Subjective HPI Nontoxic-appearing 39-year-old female presents urgent care chief complaint cough chest congestion sinus pressure fatigue. Duration of symptoms 1 week. Associated symptoms listed above. Presents today for evaluation. OTC medications none. Sick contact similar signs symptoms. Denies any chest pain hemoptysis or pleuritic pain. No high fevers. Past medical history prescription medications and allergies reviewed. .Patient presents with: Cough: With chest congestion AND SOB with wheeze x1 week PAST MEDICAL HISTORY Diagnosis Date Abnormal glandular Papanicolaou smear of cervix Abn. Pap smear (cervix) Allergic rhinitis, cause unspecified Allergy, airborne subst Generalized anxiety disorder Anxiety, Generalized Hepatitis C PAST SURGICAL HISTORY Procedure Laterality Date DELIVERY ONLY , low cervical COLPOSCOPY CERVIX UPPER/ADJACENT VAGINA Colposcopy CONIZATION CERVIX W/WO DANDC RPR ELTRD EXC LEEP-Cervix DILATION AND CURETTAGE DXAND/THER NONOBSTETRIC Dilation AND curettage INDUCED HX TONSILLECTOMY PRIMARY/SECONDARY Tonsillectomy ALLERGIES Patient has no known allergies. MEDICATIONS hydrOXYzine pamoate (VISTARIL) 50 mg capsule Take 50 mg by mouth. rOPINIRole (REQUIP) 1 mg tablet Take 1 mg by mouth once daily. multivitamin tablet Take 1 tablet by mouth once daily. SUBOXONE 8-2 mg film 2 Film once daily. (Patient not taking: Reported on 09/03/2024) citalopram (CELEXA) 20 mg tablet Take 1 tablet by mouth every morning. (Patient not taking: Reported on 09/03/2024) pantoprazole DR (PROTONIX) 40 mg tablet Take 1 tablet by mouth once daily. (Patient not taking: Reported on 09/03/2024) FAMILY HISTORY Problem Relation Age of Onset Hypertension Mother Thyroid Mother Hypothyroid Diabetes Mother GI Father GB Hypertension Father Lipids Father GI Sister GB No Known Problems Brother Arthritis Maternal Grandmother Heart Maternal Grandmother BYPASS SURGERY Lipids Maternal Grandmother Thyroid Maternal Grandmother Hypothyroid Diabetes Maternal Grandmother COPD Maternal Grandmother Lung Cancer Maternal Grandmother Lipids Maternal Grandfather Heart Paternal Grandmother ID Lung Cancer Paternal Grandmother Colon Cancer Paternal Grandfather Prostate Cancer Paternal Grandfather Thyroid Other MATERNAL 1ST COUSIN BORN WITHOUT THYROID Social History Tobacco Use Smoking status: Every Day Current packs/day: 1.00 Types: Cigarettes Smokeless tobacco: Never Vaping Use Vaping status: current everyday user Substance Use Topics Alcohol use: Not Currently Comment: Occasionally Drug use: Not Currently Types: Cocaine, Crystal Meth, Heroin, IV, Marijuana, Opiates Review of Systems Constitutional: Positive for malaise/fatigue. Negative for chills and fever. HENT: Positive for congestion and sinus pain. Negative for ear discharge, ear pain and sore throat. Eyes: Negative for blurred vision, pain, discharge and redness. Respiratory: Positive for cough and wheezing. Negative for hemoptysis, sputum production, shortness of breath and stridor. Cardiovascular: Negative for chest pain. Gastrointestinal: Negative for abdominal pain, diarrhea, nausea and vomiting. Musculoskeletal: Positive for myalgias. Skin: Negative for itching and rash. Neurological: Positive for headaches. Negative for dizziness. Objective Physical Exam Constitutional: General: She is not in acute distress. Appearance: She is not diaphoretic. HENT: Head: Normocephalic. Jaw: No trismus, tenderness, swelling or pain on movement. Nose: No congestion. Mouth/Throat: Mouth: Mucous membranes are moist. Pharynx: Oropharynx is clear. Uvula midline. No pharyngeal swelling, oropharyngeal exudate, posterior oropharyngeal erythema or uvula swelling. Eyes: Conjunctiva/sclera: Conjunctivae normal. Pupils: Pupils are equal, round, and reactive to light. Cardiovascular: Rate and Rhythm: Normal rate and regular rhythm. Heart sounds: Normal heart sounds. Pulmonary: Effort: Pulmonary effort is normal. No tachypnea, accessory muscle usage or respiratory distress. Breath sounds: No stridor. Wheezing present. No rhonchi or rales. Abdominal: General: There is no distension. Palpations: Abdomen is soft. Tenderness: There is no abdominal tenderness. There is no guarding or rebound. Musculoskeletal: Cervical back: Normal range of motion and neck supple. No edema, erythema, ri (more content not included)... 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 [facility] Comment on above: Performed By: #### L 7000.7000 #### [facility] [address] [place], [address] HCV QT RNA PCR Not detected Normal . [facility] Comment on above: Performed By: #### L 7000.7000 #### [facility] [address] [place], [place], [address] TEST INFO: Comment Normal . [facility] Comment on above: Result Comment: The quantitative range of this assay is 15 IU/mL to 100 million IU/mL. Performed at: [address] [id number] Integrity Analyst: Coby De Los Santos MD, Phone: [phone] Performed By: #### L 7000.7000 #### [facility] [address] [place], [place], [address] Breast imaging reportOrdered By: Keith Chow on 08-12-2024 Study report [facility] Imaging Services [address] [place], [place] [address] SCRN MAMM (CAD)W/ESTEVAN BILAT MR#: [id number] Acct: [id number] Name: GENESIS BRADFORD Rep #: [id number] : 1985 F 39 From: Jassi Chow MD PCP: JEANETTE Terry, AUTOCUTTER-C Status: [facility] Study:SCRN MAMM (CAD)W/ESTEVAN BILAT Date of Exa m: 08/11/24 Exam# [id number] Ordering Dr: Aruna García AUTOCUTTER-C EXAM: SCRN MAMM (CAD)W/ESTEVAN BILAT DATE: 08/11/2024 CLINICAL HISTORY: F, Age 39 y/o , SCREENING. BREAST CANCER RISK ASSESSMENT: Not assessed TECHNIQUE: Bilateral screening digital breast tomosynthesis with 2D and 3D images. Computeraided detection. COMPARISON: Baseline study FINDINGS: TISSUE DENSITY: The breast tissue is extremely dense which lowers the sensitivity of mammography. Bilateral Breast Mammographic Findings: No significant masses, calcifications or other abnormalities are identified. BI/SCRN MAMM (CAD)W/ESTEVAN BILAT IMPRESSION: Right Breast: BIRADS 1 NEGATIVE. Left Breast: BIRADS 1 NEGATIVE. OVERALL FINAL ASSESSMENT: BIRADS 1 NEGATIVE RECOMMENDATION: Routine annual follow-up in 1 Year A letter with findings and recommendations will be mailed to the patient. Reading [facility] CC: [facility] AUTOCUTTER-C Aruna García ~ Membership Correspondent: Signed [facility] Addendum DocumentOrdered By: [facility] Aruna García on 08-11-2024 Hepatitis C RNA Qnt (PCR) Test Info Comment . [facility] Comment on above: The quantitative ran ge of this assay is 15 IU/mL to 100million IU/mL.Performed at: [address] [id number] Director: Coby De Los Santos MD, Phone: [phone] HCV RNA DARIO+probe QnOrdered By: [facility] Aruna García on 08-11-2024 Hepatitis C RNA Quantitative (PCR) Not detected . [facility] Hepatitis C viral load measu rementOrdered By: [facility] Aruna García on 08-11-2024 Hepatitis C RNA (PCR) IU log10 TNP [facility] Comment on above: Test not performed SCRN MAMM (CAD)W/ESTEVAN BILATo n 08-11-2024 SCRN MAMM (CAD)W/ESTEVAN BILAT [facility] Imaging Services [address] [place] [id number] SCRN MAMM (CAD)W/ESTEVAN BILAT MR#: [id number] Acct: [id number] Name: GENESIS BRADFORD Rep #: [id number] : 1985 F 39 From: Keith wakefield MD PCP: JEANETTE Terry, AUTOCUTTER-C Status: [facility] Study: SCRN MAMM (CAD)W/ESTEVAN BILAT Date of Exam: 07/24 Exam# [id number] Ordering Dr: Aruna García AUTOCUTTER-C EXAM: SCRN MAMM (CAD)W/ESTEVAN BILAT DATE: 08/11/2024 CLINICAL HISTORY: F, Age 39 y/o , SCREENING. BREAST CANCER RISK ASSESSMENT: Not assessed TECHNIQUE: Bilateral screening digital breast tomosynthesis with 2D and 3D images. Computer aided detection. COMPARISON: Baseline study FINDINGS: TISSUE DENSITY: The breast tissue is extremely dense which lowers the sensitivity of mammography. Bilateral Breast Mammographic Findings: No significant masses, calcifications or other abnormalities are identified. BI/SCRN MAMM (CAD)W/ESTEVAN BILAT IMPRESSION: Right Breast: BIRADS 1 NEGATIVE. Left Breast: BIRADS 1 NEGATIVE. OVERALL FINAL ASSESSMENT: BIRADS 1 NEGATIVE RECOMMENDATION: Routine annual follow-up in 1 Year A letter with findings and recommendations will be mailed to the patient. Reading Location: [place] [address] CC: [facility] JAREN Garíca Membership Correspondent: Signed Normal [facility] HIV - WCHon 07-12-2024 HIV Non-Reactive Normal Nonreactive [facility] Comment on above: Performed By: #### L 3890.6005, L509.8000 #### [facility] [address] [place], [address] L509.8000on 07-12-2024 Syphilis Abs Non-Reactive Normal [facility] Comment on above: Performed By: #### L 3890.6005, L509.8000 #### [facility] [address] [place], [address] Hepatitis B/C Profile VIIIon 07-11-2024 HEP B CORE,TOT Positive Abnormal Negative [facility] Comment on above: Performed By: #### L 500.4100, L100.0100, L501.9520, L501.9985, L500.4050, L3000.0800, M8200.2203 #### [facility] [address] [place], [address] Hep B Madelin AB Reactive Normal . [facility] Comment on above: Result Comment: Non Reactive: Not immune to HBV infection. Equivocal: Unable to determine if anti-HBs is present at levels consistent with immunity. Reactive: Anti-HBs concentration detected at greater than 10 mIU/mL. Individual is considered to be immune to infection with HBV. Performed By: #### L 500.4100, L100.0100, L501.9520, L501.9985, L500.4050, L3000.0800, M8200.2203 #### [facility] [address] [place], [place], [id number] HEP B SURF AG Negative Normal Negative [facility] Comment on above: Performed By: #### L 500.4100, L100.0100, L501.9520, L501.9985, L500.4050, L3000.0800, M8200.2203 #### [facility] [address] [place], [place], [address] HEP C Antibody Reactive Abnormal Non Reactive [facility] Comment on above: Performed By: #### L 500.4100, L100.0100, L501.9520, L501.9985, L500.4050, L3000.0800, M8200.2203 #### [facility] [address] [place], [place], [address] Absolute neutrophil countOrd ered By: [facility] Ricky on 07-07-2024 Neutrophils (Bld) [#/Vol] 3.5 10*3/uL 2.0-7.7 [facility] Albumin to globulin ratioOrd ered By: [facility] Ricky on 07-07-2024 Albumin/Globulin [Mass ratio] 0.9 {ratio} 0.9-2.4 [facility] Basophil percentageOrdered B y: [facility] Ricky on 07-07-2024 Basophils/100 WBC (Bld) 1.1 % High 0-1 [facility] Bilirubin, totalOrdered By: [facility] Ricky on 07-07-2024 Bilirubin [Mass/Vol] 0.10 mg/dL Low 0.20-1.00 [facility] Comment on above: For patients on eltr ombopag therapy, use of Dimension [place] TBIL is not recommended. Blood urea nitrogen (BUN)/cr eatinine ratioOrdered By: [facility]una[facility] Garc[facility] on 07-07-2024 Urea nitrogen/Creatinine [Mass ratio] 11.6 mg/mg 10-20 [facility] CBC W/Diff, Automatedon 02- Absolute Lymph 1.88 X10 3/uL Normal 0.83-4.51 [facility] Comment on above: Performed By: #### L 500.4100, L100.0100, L501.9520, L501.9985, L500.4050, L3000.0800, M8200.2203 #### [facility] [address] [place], [address] Absolute Neut 3.5 X10 3/uL Normal 2.0-7.7 [facility] Comment on above: Performed By: #### L 500.4100, L100.0100, L501.9520, L501.9985, L500.4050, L3000.0800, M8200.3 #### [facility] [address] [place], [address] Basophils/100 WBC (Bld) 1.1 % High 0-1 [facility] Comment on above: Performed By: #### L 500.4100, L100.0100, L501.9520, L501.9985, L500.4050, L3000.0800, M8200.3 #### [facility] [address] [place], [address] Eosinophils/100 WBC (Bld) 8.7 % High 0-5 [facility] Comment on above: Performed By: #### L 500.4100, L100.0100, L501.9520, L501.9985, L500.4050, L3000.0800, M8200.2203 #### [facility] [address] [place], [address] Erythrocyte distribution width (RBC) [Ratio] 14.9 % High 11.6-14.6 [facility] Comment on above: Performed By: #### L 500.4100, L100.0100, L501.9520, L501.9985, L500.4050, L3000.0800, M8200.2203 #### [facility] [address] [place], [address] Hematocrit (Bld) [Volume fraction] 36.8 % Low 37-47 [facility] Comment on above: Performed By: #### L 500.4100, L100.0100, L501.9520, L501.9985, L500.4050, L3000.0800, M8200.2203 #### [facility] [address] [place], [address] Hemoglobin (Bld) [Mass/Vol] 11.5 g/dL Low 12.0-15.0 [facility] Comment on above: Performed By: #### L 500.4100, L100.0100, L501.9520, L501.9985, L500.4050, L3000.0800, M8200.2203 #### [facility] [address] [place], [address] IG% 0.300 Normal 0.0-0.9 [facility] Comment on above: Result Comment: IG% - Immature Granulocytes (promyelocytes, myelocytes and metamyelocytes) > 1% indicates that a LEFT SHIFT is Present. Performed By: #### L 500.4100, L100.0100, L501.9520, L501.9985, L500.4050, L3000.0800, M8200.2203 #### [facility] [address] [place], [address] Lymphocytes/100 WBC (Bld) 26.9 % Normal 19-41 [facility] Comment on above: Performed By: #### L 500.4100, L100.0100, L501.9520, L501.9985, L500.4050, L3000.0800, M8200.2203 #### [facility] [address] [place], [address] MCH (RBC) [Entitic mass] 25.5 pg Low 27.0-32.0 [facility] Comment on above: Performed By: #### L 500.4100, L100.0100, L501.9520, L501.9985, L500.4050, L3000.0800, M8200.2203 #### [facility] [address] [place], [address] MCHC (RBC) [Mass/Vol] 31.3 g/dL Low 32-36 [facility] Comment on above: Performed By: #### L 500.4100, L100.0100, L501.9520, L501.9985, L500.4050, L3000.0800, M8200.2203 #### [facility] [address] [place], [address] MCV (RBC) [Entitic vol] 81.6 fL Normal 81-99 [facility] Comment on above: Performed By: #### L 500.4100, L100.0100, L501.9520, L501.9985, L500.4050, L3000.0800, M8200.2203 #### [facility] [address] [place], [address] Monocytes/100 WBC (Bld) 13.1 % High 0-10 [facility] Comment on above: Performed By: #### L 500.4100, L100.0100, L501.9520, L501.9985, L500.4050, L3000.0800, M8200.2203 #### [facility] [address] [place], [address] Neutrophils/100 WBC (Bld) 49.9 % Normal 47-70 [facility] Comment on above: Performed By: #### L 500.4100, L100.0100, L501.9520, L501.9985, L500.4050, L3000.0800, M8200.2203 #### [facility] [address] [place], [address] Nucleated RBC (Bld) [#/Vol] 0 10*3/uL Normal 0-5 [facility] Comment on above: Performed By: #### L 500.4100, L100.0100, L501.9520, L501.9985, L500.4050, L3000.0800, M8200.3 #### [facility] [address] [place], [address] Platelet mean volume (Bld) [Entitic vol] 9.3 fL Normal 6.2-12.0 [facility] Comment on above: Performed By: #### L 500.4100, L100.0100, L501.9520, L501.9985, L500.4050, L3000.0800, M8200.2202 #### [facility] [address] [place], [address] Platelets (Bld) [#/Vol] 371 10*3/uL Normal 150-450 [facility] Comment on above: Performed By: #### L 500.4100, L100.0100, L501.9520, L501.9985, L500.4050, L3000.0800, M8200.2202 #### [facility] [address] [place], [address] RBC (Bld) [#/Vol] 4.51 10*6/uL Normal 4.2-5.4 [facility] Comment on above: Performed By: #### L 500.4100, L100.0100, L501.9520, L501.9985, L500.4050, L3000.0800, M8200.2202 #### [facility] [address] [place], [address] RDW SD 44.6 fl High 35.1-43.9 [facility] Comment on above: Performed By: #### L 500.4100, L100.0100, L501.9520, L501.9985, L500.4050, L3000.0800, M8200.3 #### [facility] [address] [place], [place], [address] WBC (Bld) [#/Vol] 7.0 10*3/uL Normal 4.4-11.0 [facility] Comment on above: Performed By: #### L 500.4100, L100.0100, L501.9520, L501.9985, L500.4050, L3000.0800, M8200.2202 #### [facility] [address] [place], [address] Carbon dioxide measurementOr dered By: [facility] Aruna García on 07-07-2024 CO2 [Moles/Vol] 25.0 mmol/L 21.0-32.0 [facility] Chlamydia and Neisseria gono rrhoeae detection by PCROrdered By: [facility] Aruna García on 07-07-2024 Chlamydia/Neisseria (PCR) [facility] Chloride measurementOrdered By: [facility] Aruna García on 07-07-2024 Chloride [Moles/Vol] 106 mmol/L 98-107 [facility] Comprehensive Metabolic Prof ilon 07-07-2024 Albumin [Mass/Vol] 3.7 g/dL Normal 3.2-5.0 [facility] Comment on above: Performed By: #### L 500.4100, L100.0100, L501.9520, L501.9985, L500.4050, L3000.0800, M8200.3 #### [facility] [address] [place], [address] Albumin/Globulin [Mass ratio] 0.9 {ratio} Normal 0.9-2.4 [facility] Comment on above: Performed By: #### L 500.4100, L100.0100, L501.9520, L501.9985, L500.4050, L3000.0800, M8200.2203 #### [facility] [address] [place], [address] ALK P 65 U/L Normal 45-117 [facility] Comment on above: Performed By: #### L 500.4100, L100.0100, L501.9520, L501.9985, L500.4050, L3000.0800, M8200.2203 #### [facility] [address] [place], [address] ALT [Catalytic activity/Vol] 25 U/L Normal 13-56 [facility] Comment on above: Performed By: #### L 500.4100, L100.0100, L501.9520, L501.9985, L500.4050, L3000.0800, M8200.2203 #### [facility] [address] [place], [address] AST [Catalytic activity/Vol] 26 U/L Normal 15-37 [facility] Comment on above: Performed By: #### L 500.4100, L100.0100, L501.9520, L501.9985, L500.4050, L3000.0800, M8200.2203 #### [facility] [address] [place], [address] Bilirubin [Mass/Vol] 0.10 mg/dL Low 0.20-1.00 [facility] Comment on above: Result Comment: For patients on eltrombopag therapy, use of Dimension [place] TBIL is not recommended. Performed By: #### L 500.4100, L100.0100, L501.9520, L501.9985, L500.4050, L3000.0800, M8200.2203 #### [facility] [address] [place], [address] BUN/CRE 11.6 RATIO Normal 10-20 [facility] Comment on above: Performed By: #### L 500.4100, L100.0100, L501.9520, L501.9985, L500.4050, L3000.0800, M8200.2203 #### [facility] [address] [place], [address] CA,Total 8.9 mg/dL Normal 8.5-10.1 [facility] Comment on above: Performed By: #### L 500.4100, L100.0100, L501.9520, L501.9985, L500.4050, L3000.0800, M8200.2203 #### [facility] [address] [place], [address] Chloride [Moles/Vol] 106 mmol/L Normal 98-107 [facility] Comment on above: Performed By: #### L 500.4100, L100.0100, L501.9520, L501.9985, L500.4050, L3000.0800, M8200.3 #### [facility] [address] [place], [address] CO2 [Moles/Vol] 25.0 mmol/L Normal 21.0-32.0 [facility] Comment on above: Performed By: #### L 500.4100, L100.0100, L501.9520, L501.9985, L500.4050, L3000.0800, M8200.2203 #### [facility] [address] [place], [address] Creatinine [Mass/Vol] 0.86 mg/dL Normal 0.55-1.02 [facility] Comment on above: Result Comment: The validity of the calculated GFR GFRAA in patients over 70 years has not been determined. Clinical correlation is essential. Performed By: #### L 500.4100, L100.0100, L501.9520, L501.9985, L500.4050, L3000.0800, M8200.2203 #### [facility] [address] [place], [address] EST GFR - AA 94 mL/min Normal >60 [facility] Comment on above: Result Comment: Afri can [place] GFR Calc Performed By: #### L 500.4100, L100.0100, L501.9520, L501.9985, L500.4050, L3000.0800, M8200.2203 #### [facility] [address] [place], [address] GAP 6 Normal 5-15 [facility] Comment on above: Performed By: #### L 500.4100, L100.0100, L501.9520, L501.9985, L500.4050, L3000.0800, M8200.2203 #### [facility] [address] [place], [address] GFR/1.73 sq M.predicted among non-blacks MDRD (S/P/Bld) [Vol rate/Area] 78 mL/min/{1.73_m2} Normal >60 [facility] Comment on above: Result Comment: Non- GFR Calc Performed By: #### L 500.4100, L100.0100, L501.9520, L501.9985, L500.4050, L3000.0800, M8200.2203 #### [facility] [address] [place], [address] Globulin (S) [Mass/Vol] 4.1 g/dL Normal 2.2-4.2 [facility] Comment on above: Performed By: #### L 500.4100, L100.0100, L501.9520, L501.9985, L500.4050, L3000.0800, M8200.2203 #### [facility] [address] [place], [address] Glucose [Mass/Vol] 85 mg/dL Normal 74-106 [facility] Comment on above: Performed By: #### L 500.4100, L100.0100, L501.9520, L501.9985, L500.4050, L3000.0800, M8200.2203 #### [facility] [address] [place], [address] Potassium [Moles/Vol] 4.4 mmol/L Normal 3.5-5.1 [facility] Comment on above: Performed By: #### L 500.4100, L100.0100, L501.9520, L501.9985, L500.4050, L3000.0800, M8200.2203 #### [facility] [address] [place], [address] Sodium [Moles/Vol] 138 mmol/L Normal 136-145 [facility] Comment on above: Performed By: #### L 500.4100, L100.0100, L501.9520, L501.9985, L500.4050, L3000.0800, M8200.2203 #### [facility] [address] [place], [address] T PROT 7.8 g/dL Normal 6.4-8.2 [facility] Comment on above: Performed By: #### L 500.4100, L100.0100, L501.9520, L501.9985, L500.4050, L3000.0800, M8200.2203 #### [facility] [address] [place], [address] Urea nitrogen [Mass/Vol] 10 mg/dL Normal 7-18 [facility] Comment on above: Performed By: #### L 500.4100, L100.0100, L501.9520, L501.9985, L500.4050, L3000.0800, M8200.2203 #### [facility] [address] [place], [address] Eosinophil percentageOrdered By: [facility] Aruna García on 07-07-2024 Eosinophils/100 WBC (Bld) 8.7 % High 0-5 [facility] Erythrocyte distribution wid th ratioOrdered By: [facility] on 07-07-2024 Erythrocyte distribution width (RBC) [Ratio] 14.9 % High 11.6-14.6 [facility] Erythrocyte distribution wid th standard deviationOrdered By: [facility] on 07-07-2024 Erythrocyte distribution width (RBC) [Entitic vol] 44.6 fL High 35.1-43.9 [facility] Estimated glomerular filtrat ion rate (GFR) AmericanOrdered By: [facility] Aruna García on 07-07-2024 Estimated GFR (MDRD) Amer 94 mL/min >60 [facility] Comment on above: GFR Calc Glomerular filtration rate ( GFR) estimationOrdered By: [facility] Aruna García on 07-07-2024 Estimated GFR (MDRD) Non-Af Amer 78 mL/min >60 [facility] Comment on above: Non- GFR Calc Glucose measurementOrdered B y: [facility] Aruna García on 07-07-2024 Glucose [Mass/Vol] 85 mg/dL 74-106 [facility] HBV core Ab Ql (S)Ordered By : [facility] Aruna García on 07-07-2024 Hepatitis B Core Total Antibody Positive High Negative [facility] HBV surface Ag IA QlOrdered By: [facility] Aruna García on 07-07-2024 Hepatitis B Surface Antigen Negative Negative [facility] HIV 1+2 Ab+HIV1 p24 Ag IA Ql Ordered By: [facility] Aruna García on 07-07-2024 HIV (1&2) Antibody Non-Reactive Nonreactive [facility] Hematocrit Auto (Bld) [Volum e fraction]Ordered By: [facility] Aruna García on 07-07-2024 Hematocrit (Bld) [Volume fraction] 36.8 % Low 37-47 [facility] Hemoglobin A1con 07-07-2024 HbA1c (Bld) [Mass fraction] 5.7 % High 3.8-5.6 [facility] Comment on above: Result Comment: Norm al < 5.7 % Prediabetic 5.7 - 6.4 % Diabetic >or= 6.5 % Please note range changes. Performed By: #### L 500.4100, L100.0100, L501.9520, L501.9985, L500.4050, L3000.0800, M8200.2203 #### [facility] [address] [place], [address] Hemoglobin A1c percentageOrd ered By: [facility] Aruna García on 07-07-2024 HbA1c (Bld) [Mass fraction] 5.7 % High 3.8-5.6 [facility] Comment on above: Normal < 5.7 % Predi abetic 5.7 - 6.4 % Diabetic >or= 6.5 % Please note range changes. Hemoglobin measurementOrdere d By: [facility] Aruna García on 07-07-2024 Hemoglobin (Bld) [Mass/Vol] 11.5 g/dL Low 12.0-15.0 [facility] Hepatitis B surface antibody Ordered By: [facility] on 07-07-2024 Hepatitis B Surface Antibody Reactive . [facility] Comment on above: Non Reactive: Not im mune to HBV infection. Equivocal: Unable to determine if anti-HBs is present at levels consistent with immunity. Reactive: Anti-HBs concentration detected at greater than 10 mIU/mL. Individual is considered to be immune to infection with HBV. Hepatitis C virus antibody a ssay by recombinant immunoblot assayOrdered By: [facility] Aruna García on 07-07-2024 Hepatitis C Antibody Reactive High Non Reactive [facility] High density lipoprotein (HD L) measurementOrdered By: [facility] Aruna García on 07-07-2024 Cholesterol in HDL [Mass/Vol] 79 mg/dL >40 [facility] Comment on above: The drugs N-Acetylcy steine and Metamizole may falsely depress this assay. Reference Range HDL <40 mg/dL Low HDL Cholesterol HDL >or= 60 mg/dL High HDL Cholesterol Immature granulocytes/100 WB C Auto (Bld)Ordered By: [facility] Aruna García on 07-07-2024 Immature granulocytes/100 WBC (Bld) 0.300 % 0.0-0.9 [facility] Comment on above: IG% - Immature Granu locytes (promyelocytes, myelocytes and metamyelocytes) > 1% indicates that a LEFT SHIFT is Present. Laboratory - Chemistry and C hemistry - challengeOrdered By: [facility] Aruna García on 07-07-2024 AST [Catalytic activity/Vol] 26 U/L 15-37 [facility] Lipid Profileon 07-07-2024 Cholesterol [Mass/Vol] 172 mg/dL Normal 200 [facility] Comment on above: Result Comment: <200 mg/dL Desirable 200-240 mg/dL Borderline >240 mg/dL High Risk Performed By: #### L 500.4100, L100.0100, L501.9520, L501.9985, L500.4050, L3000.0800, M8200.2203 #### [facility] [address] [place], [address] Cholesterol in HDL [Mass/Vol] 79 mg/dL Normal [facility] Comment on above: Result Comment: The drugs N-Acetylcysteine and Metamizole may falsely depress this assay. Reference Range HDL <40 mg/dL Low HDL Cholesterol HDL >or= 60 mg/dL High HDL Cholesterol Performed By: #### L 500.4100, L100.0100, L501.9520, L501.9985, L500.4050, L3000.0800, M8200.2203 #### [facility] [address] [place], [address] Cholesterol in LDL [Mass/Vol] 73 mg/dL Normal 0-130 [facility] Comment on above: Performed By: #### L 500.4100, L100.0100, L501.9520, L501.9985, L500.4050, L3000.0800, M8200.2203 #### [facility] [address] [place], [address] Cholesterol in VLDL [Mass/Vol] 20 mg/dL Normal 5-40 [facility] Comment on above: Performed By: #### L 500.4100, L100.0100, L501.9520, L501.9985, L500.4050, L3000.0800, M8200.2203 #### [facility] [address] [place], [place], [address] Triglyceride [Mass/Vol] 99 mg/dL Normal [facility] Comment on above: Result Comment: The drugs N-Acetylcysteine and Metamizole may falsely depress this assay. Serum Triglycerides Reference Interval Normal <150 mg/dL Borderline high 150 - 199 mg/dL High 200 - 499 mg/dL Very High > or = 500 mg/dL Performed By: #### L 500.4100, L100.0100, L501.9520, L501.9985, L500.4050, L3000.0800, M8200.3 #### [facility] [address] [place], [address] Low density lipoprotein (LDL ) cholesterol measurementOrdered By: [facility] Aruna García on 07-07-2024 Cholesterol in LDL [Mass/Vol] 73 mg/dL 0-130 [facility] Lymphocytes Auto (Unsp spec) [#/Vol]Ordered By: [facility] Aruna García on 07-07-2024 Lymphocytes (Bld) [#/Vol] 1.88 10*3/uL 0.83-4.51 [facility] Lymphocytes/100 WBC Auto (Un sp spec)Ordered By: [facility] Aruna García on 07-07-2024 Lymphocytes/100 WBC (Bld) 26.9 % 19-41 [facility] [id number] 07-07-2024 M8200.2203 Chlamydia Trachomati s PCR NEGATIVE for Chlamydia trachomatis N. gonorrhoeae PCR Negative for N. gonorrhoeae Normal [facility] Comment on above: Performed By: #### L 500.4100, L100.0100, L501.9520, L501.9985, L500.4050, L3000.0800, M8200.2203 #### [facility] [address] [place], [address] MCV (mean corpuscular volume ) determinationOrdered By: [facility] Aruna García on 07-07-2024 MCV (RBC) [Entitic vol] 81.6 fL 81-99 [facility] Mean corpuscular hemoglobin (MCH) determinationOrdered By: [facility] Aruna García on 07-07-2024 MCH (RBC) [Entitic mass] 25.5 pg Low 27.0-32.0 [facility] Mean corpuscular hemoglobin concentration (MCHC) determinationOrdered By: [facility] Aruna García on 07-07-2024 MCHC (RBC) [Mass/Vol] 31.3 g/dL Low 32-36 [facility] Mean platelet volume determi nationOrdered By: [facility] Aruna García on 07-07-2024 Platelet mean volume (Bld) [Entitic vol] 9.3 fL 6.2-12.0 [facility] Monocyte percentageOrdered B y: [facility] Aruna García on 07-07-2024 Monocytes/100 WBC (Bld) 13.1 % High 0-10 [facility] Neutrophil percentageOrdered By: [facility] Aruna García on 07-07-2024 Neutrophils/100 WBC (Bld) 49.9 % 47-70 [facility] Nucleated red blood cell per centageOrdered By: [facility] Aruna García on 07-07-2024 Nucleated RBC/100 WBC (Bld) [Ratio] 0 % 0-5 [facility] Platelet countOrdered By: [facility] Aruna García on 07-07-2024 Platelets (Bld) [#/Vol] 371 10*3/uL 150-450 [facility] Potassium measurementOrdered By: [facility] Aruna García on 07-07-2024 Potassium [Moles/Vol] 4.4 mmol/L 3.5-5.1 [facility] RBC Auto (Bld) [#/Vol]Ordere d By: [facility] Aruna García on 07-07-2024 RBC (Bld) [#/Vol] 4.51 10*6/uL 4.2-5.4 [facility] Serum anion gap measurementO rdered By: [facility] Aruna García on 07-07-2024 Anion gap [Moles/Vol] 6 mmol/L 5-15 [facility] Serum globulin measurementOr dered By: VIKKI Aruna García on 07-07-2024 Globulin (S) [Mass/Vol] 4.1 g/dL 2.2-4.2 [facility] Serum or plasma alanine browning otransferase (ALT) measurementOrdered By: [facility] Aruna García on 07-07-2024 ALT [Catalytic activity/Vol] 25 U/L 13-56 [facility] Serum or plasma albumin vanessa urement (mass/volume)Ordered By: [facility] Aruna García on 07-07-2024 Albumin [Mass/Vol] 3.7 g/dL 3.2-5.0 [facility] Serum or plasma alkaline calli sphatase measurementOrdered By: VIKKI Aruna García on 07-07-2024 ALP [Catalytic activity/Vol] 65 U/L 45-117 [facility] Serum or plasma calcium vanessa urement (mass/volume)Ordered By: VIKKI Aruna García on 07-07-2024 Calcium [Mass/Vol] 8.9 mg/dL 8.5-10.1 [facility] Serum or plasma cholesterol measurement (mass/volume)Ordered By: [facility] Aruna García on 07-07-2024 Cholesterol [Mass/Vol] 172 mg/dL <200 [facility] Comment on above: <200 mg/dL Desirable 200-240 mg/dL Borderline >240 mg/dL High Risk Serum or plasma creatinine m easurement (mass/volume)Ordered By: JEANETTE García on 07-07-2024 Creatinine [Mass/Vol] 0.86 mg/dL 0.55-1.02 [facility] Comment on above: The validity of the calculated GFR & GFRAA in patients over 70 years has not been determined. Clinical correlation is essential. Serum or plasma urea nitroge n measurement (mass/volume)Ordered By: JEANETTE García on 07-07-2024 Urea nitrogen [Mass/Vol] 10 mg/dL 7-18 [facility] Sodium levelOrdered By: JEANETTE García on 07-07-2024 Sodium [Moles/Vol] 138 mmol/L 136-145 [facility] TSH QnOrdered By: [facility] Ethan García on 07-07-2024 Thyroid Stimulating Hormone (TSH) 1.370 uIU/mL 0.358-3.740 [facility] Thyroid Stim Hormone (TSH)on 07-07-2024 TSH 1.370 uIU/mL Normal 0.358-3.740 [facility] Comment on above: Performed By: #### L 500.4100, L100.0100, L501.9520, L501.9985, L500.4050, L3000.0800, M8200.2203 #### [facility] [address] [place], [address] Total proteinOrdered By: [facility] Aruna García on 07-07-2024 Protein [Mass/Vol] 7.8 g/dL 6.4-8.2 [facility] Treponema sp Ab Ql (S)Ordere d By: [facility] Aruna García on 07-07-2024 Syphilis Total Antibody Non-Reactive [facility] Triglycerides measurementOrd ered By: [facility] Aruna García on 07-07-2024 Triglyceride [Mass/Vol] 99 mg/dL <199 [facility] Comment on above: The drugs N-Acetylcy steine and Metamizole may falsely depress this assay.Serum Triglycerides Reference Interval Normal <150 mg/dL Borderline high 150 - 199 mg/dL High 200 - 499 mg/dL Very High > or = 500 mg/dL Very low density lipoprotein (VLDL) cholesterol measurementOrdered By: [facility] Aruna García on 07-07-2024 VLDL Cholesterol 20 mg/dL 5-40 [facility] White blood cell (WBC) count Ordered By: [facility] Aruna García on 07-07-2024 WBC (Bld) [#/Vol] 7.0 10*3/uL 4.4-11.0 [facility] Progress Noteon 06-07-2024 Progress Note Chief Complaint Patient presents with Drug / Alcohol Assessment I did spend --- minutes preparing for visit, counseling, providing discussion on recovery progress and treatment plan of patient, and management of prescription medications and future scheduling. Patient was seen today via Telehealth by agreement and consent. I used the following Telehealth technology: Audio and video capabilities. Patient location: [place] Patient Location: Home. This patient encounter is appropriate and reasonable under the circumstances: Behavioral Health . The patient has been advised of the potential risks and limitations of this mode of treatment (including but not limited to the absence of in-person examination) and has agreed to be treated in a remote fashion in spite of them. Any and all of the patient's/patient's family's questions on this issue have been answered and I have made no promises or guarantees to the patient. The patient has also been advised to contact this office for worsening conditions or problems, and seek emergency medical treatment and/or call 911 if the patient deems either necessary. The patient stated that they are currently in the [facility]. If the patient is a minor, permission has been obtained by the parent or guardian for the patient to receive medical care at this visit. HPI: Genesis Bradford, a 38 y.o. female, who returns for a follow-up MAT appointment. UDS 04/27 ok [facility] rx 05/14 Cravings : denied Sleep: denied Anxiety: denied Side effects: denied New medications : denied Recovery status Maintaining sobriety: yes Treatment status: Completed treatment Past Medical History: Diagnosis Date Hepatitis C Current Outpatient Medications on File Prior to Visit Medication Sig Dispense Refill buprenorphine-naloxone (Suboxone) 8-2 MG [address] film [address] 1 Film under the tongue 2 times daily. Do not start before May 14, 2024. 60 Film 0 No current facility-administered medications on file prior to visit. No Known Allergies Social History Socioeconomic History Marital status: Significant Other Spouse name: Not on file Number of children: Not on file Years of education: Not on file Highest education level: Not on file Occupational History Not on file Tobacco Use Smoking status: Every Day Smokeless tobacco: Not on file Substance and Sexual Activity Alcohol use: Not Currently Drug use: Yes Types: Methamphetamines Sexual activity: Not on file Other Topics Concern Not on file Social History Narrative Not on file Social Drivers of Health Financial Resource Strain: Not on File (05/14/2023) Received from [facility] Financial Resource Strain Financial Resource Strain: 0 Food Insecurity: Not on File (02/18/2024) Received from [facility] Food Insecurity Food: 0 Transportation Needs: Not on File (05/14/2023) Received from [facility] Transportation Needs Transportation: 0 Physical Activity: Not on File (05/14/2023) Received from [facility] Physical Activity Physical Activity: 0 Stress: Not on File (05/14/2023) Received from [facility] Stress Stress: 0 Social Connections: Not on File (02/17/2024) Received from [facility] Social Connections Connectedness: 0 Intimate Partner Violence: Not on file Housing Stability: Not on File (05/14/2023) Received from [facility] Housing Stability Housin No family history on file. Objective There were no vitals taken for this visit. Mental status Attitude: cooperative Orientation: oriented X 3 Mood: normal Affect: reactive, mood congruent, normal range Speech: clear, normal R/V/R Thought process: unremarkable Association: no loose associations Thought content: normal Psychotic thoughts: No hallucinations or suicidal ideation Impulse control: good Judgement and insight: good Memory recent, remote within normal limits Assessment: Opiate dependence in remission Plan Patient Goals: 1. Continue 12-step meeting attendance (goal of 2 per week). 2. Actively communicate with sponsor. 3. Take medication as directed and report any negative side effects or missed doses. 4. Report any illicit drug use to either the briefcase sewer or myself/my staff. 5. Keep medicine out of the reach of children. 6. Follow-up with recommended level of care. Interventions in Session: 1. Discussed patient's progress in their 12-step program. 2. Discussed progress in recovery and overall well-being. 3. Discussed stressors/triggers for a potential relapse & related coping mechanisms. Medication Management: Patient stable on current dose, will continue 16 mg Suboxone daily, reassess in 4 weeks. [] Suboxone film [] Buprenorphine/naloxone tabs [] Subutex No orders of the defined types were placed in this encounter. No orders of the defined types were placed in this encounter. No follow-ups on file. [facility] Progress Note This encounter was created in error - please disregard. [facility] 36on 05-12-2024 36 Name of caller: Genesis Frederick Contact phone number: [phone] Relationship to Patient: patient Provider: Dr. Miya Oconnell Practice: [facility] A[facility] Chief Complaint/Reason for Call: Pt request a return call. Pt. states she has to work the next two days and wanted to see if this script for Suboxone can be filled today so she is not sick at work. 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 Best time of day caller can be reached: any Patient advised that office/PCP has 24-48 business hours to return their call: Yes Normal [facility] Progress Noteon 05-11-2024 Progress Note Chief Complaint Patient presents with Drug / Alcohol Assessment I did spend ---31 minutes preparing for visit, counseling, providing discussion on recovery progress and treatment plan of patient, and management of prescription medications and future scheduling. Patient was seen today via Telehealth by agreement and consent. I used the following Telehealth technology: Audio and video capabilities. Patient location: Patient Location: Home. This patient encounter is appropriate and reasonable under the circumstances: Behavioral Health . The patient has been advised of the potential risks and limitations of this mode of treatment (including but not limited to the absence of in-person examination) and has agreed to be treated in a remote fashion in spite of them. Any and all of the patient's/patient's family's questions on this issue have been answered and I have made no promises or guarantees to the patient. The patient has also been advised to contact this office for worsening conditions or problems, and seek emergency medical treatment and/or call 911 if the patient deems either necessary. The patient stated that they are currently in the [facility]. If the patient is a minor, permission has been obtained by the parent or guardian for the patient to receive medical care at this visit. HPI: Lucitacherry Kathia Bradford, a 38 y.o. female, who returns for a follow-up MAT appointment. UDS 04/27 ok [facility] ok Tx pneumonia--on doxycyline Started on steroids Starting to feel better Picking up son First day back to work Cravings : denied Sleep: denied Anxiety: denied Side effects: denied New medications : denied Recovery status Maintaining sobriety: yes Treatment status: Completed treatment Past Medical History: Diagnosis Date Hepatitis C Current Outpatient Medications on File Prior to Visit Medication Sig Dispense Refill [DISCONTINUED] buprenorphine-naloxone (Suboxone) 8-[address] 1 Film under the tongue 2 times daily. 60 Film 0 No current facility-administered medications on file prior to visit. No Known Allergies Social History Socioeconomic History Marital status: Significant Other Spouse name: Not on file Number of children: Not on file Years of education: Not on file Highest education level: Not on file Occupational History Not on file Tobacco Use Smoking status: Every Day Smokeless tobacco: Not on file Substance and Sexual Activity Alcohol use: Not Currently Drug use: Yes Types: Methamphetamines Sexual activity: Not on file Other Topics Concern Not on file Social History Narrative Not on file Social Drivers of Health Financial Resource Strain: Not on File (05/14/2023) Received from [facility] Financial Resource Strain Financial Resource Strain: 0 Food Insecurity: Not on File (02/18/2024) Received from [facility] Food Insecurity Food: 0 Transportation Needs: Not on File (05/14/2023) Received from [facility] Transportation Needs Transportation: 0 Physical Activity: Not on File (05/14/2023) Received from [facility] Physical Activity Physical Activity: 0 Stress: Not on File (05/14/2023) Received from [facility] Stress Stress: 0 Social Connections: Not on File (02/17/2024) Received from [facility] Social Connections Connectedness: 0 Intimate Partner Violence: Not on file Housing Stability: Not on File (05/14/2023) Received from [facility] Housing Stability Housin No family history on file. Objective There were no vitals taken for this visit. Mental status Attitude: cooperative Orientation: oriented X 3 Mood: normal Affect: reactive, mood congruent, normal range Speech: clear, normal R/V/R Thought process: unremarkable Association: no loose associations Thought content: normal Psychotic thoughts: No hallucinations or suicidal ideation Impulse control: good Judgement and insight: good Memory recent, remote within normal limits Assessment: Opiate dependence in remission Plan Patient Goals: 1. Continue 12-step meeting attendance (goal of 2 per week). 2. Actively communicate with sponsor. 3. Take medication as directed and report any negative side effects or missed doses. 4. Report any illicit drug use to either the briefcase sewer or myself/my staff. 5. Keep medicine out of the reach of children. 6. Follow-up with recommended level of care. Interventions in Session: 1. Discussed patient's progress in their 12-step program. 2. Discussed progress in recovery and overall well-being. 3. Discussed stressors/triggers for a potential relapse & related coping mechanisms. Medication Management: Patient stable on current dose, will continue 16 mg Suboxone daily, reassess in 4 weeks. [x] Suboxone film [] Buprenorphine/naloxone tabs [] Subutex No orders of the defined types were placed in this encounter. New Medications Ordered This Visit Medications buprenorphine-naloxone (Suboxone) (more content not included)... [facility] CNOVon 05-10-2024 [facility] Office Visit (UCWSTR ) GENESIS BRADFORD ([id number]) 1985 F Date Time Provider Department 05/10/24 2:45 PM ARUNA SMILEY [facility] During your visit today, we recorded the following information about you: Temperature Pulse Respiration Blood pressure 97.9 degrees 79/minute 18/minute 110/72 Weight 58.6 kg Maura Harry APRN.SCANNER OPERATOR 05/10/2024 3:33 PM Signed CC: Patient presents with: Cough: Coughing x 4-5 days now and vomiting and not getting any better HPI: Genesis Bradford is a 38 year old female who presents to the office with complaint of respiratory symptoms and head congestion for a few days. Symptoms are worsening Associated symptoms includes vomiting . Denies fever, dyspnea, and diarrhea. Treatments tried include nothing so far. with no relief of symptoms. Sick contacts: unknown. History of asthma, frequent episodes of bronchitis, chronic bronchitis, bronchiectasis or COPD: No Smoker: smoker Seasonal/environmental allergies: No The ROS is otherwise negative. The patient's pmh, medications, allergies, and past visits are reviewed. PHYSICAL EXAM: BP 110/72 Pulse 79 Temp 36.6 ?C (97.9 ?F) (Tympanic) Resp 18 Wt 58.6 kg (129 lb 3 oz) LMP 12/17/2023 SpO2 96% BMI 22.89 kg/m? General appearance: alert, cooperative, pleasant, in no acute distress Head: Normocephalic Eyes: EOM's intact, conjunctiva pink and moist, no icterus, sclera white, non-injected Heart: Negative. RRR without obvious murmur, gallop, or rubs. No ectopy. Lungs: clear to auscultation, without rales or wheeze, good air exchange Abdomen: soft non tender PAST MEDICAL HISTORY Diagnosis Date Abnormal glandular Papanicolaou smear of cervix Abn. Pap smear (cervix) Allergic rhinitis, cause unspecified Allergy, airborne subst Generalized anxiety disorder Anxiety, Generalized Hepatitis C PAST SURGICAL HISTORY Procedure Laterality Date DELIVERY ONLY , low cervical COLPOSCOPY CERVIX UPPER/ADJACENT VAGINA Colposcopy CONIZATION CERVIX W/WO DANDC RPR ELTRD EXC LEEP-Cervix DILATION AND CURETTAGE DXAND/THER NONOBSTETRIC Dilation AND curettage INDUCED HX TONSILLECTOMY PRIMARY/SECONDARY Tonsillectomy ALLERGIES Patient has no known allergies. MEDICATIONS doxycycline (VIBRA-TABS) 100 mg tablet Take 1 tablet by mouth two times a day for 7 days. SUBOXONE 8-2 mg film 2 Film once daily. multivitamin tablet Take 1 tablet by mouth once daily. citalopram (CELEXA) 20 mg tablet Take 1 tablet by mouth every morning. pantoprazole DR (PROTONIX) 40 mg tablet Take 1 tablet by mouth once daily. FAMILY HISTORY Problem Relation Age of Onset Hypertension Mother Thyroid Mother Hypothyroid Diabetes Mother GI Father GB Hypertension Father Lipids Father GI Sister GB No Known Problems Brother Arthritis Maternal Grandmother Heart Maternal Grandmother BYPASS SURGERY Lipids Maternal Grandmother Thyroid Maternal Grandmother Hypothyroid Diabetes Maternal Grandmother COPD Maternal Grandmother Lung Cancer Maternal Grandmother Lipids Maternal Grandfather Heart Paternal Grandmother ID Lung Cancer Paternal Grandmother Colon Cancer Paternal Grandfather Prostate Cancer Paternal Grandfather Thyroid Other MATERNAL 1ST COUSIN BORN WITHOUT THYROID Social History Tobacco Use Smoking status: Every Day Current packs/day: 1.00 Types: Cigarettes Smokeless tobacco: Never Vaping Use Vaping status: current everyday user Substance Use Topics Alcohol use: Not Currently Comment: Occasionally Drug use: Not Currently Types: Cocaine, Crystal Meth, Heroin, IV, Marijuana, Opiates ASSESSMENT/PLAN: 1. Nausea - ICD9: 787.02, ICD10: R11.0 (primary diagnosis) 2. URI, acute - ICD9: 465.9, ICD10: J06.9 - COVID AND INFLUENZA A/B AND RSV PCR, ROUTINE 3. Acute cough - ICD9: 786.2, ICD10: R05.1 - XR CHEST 2V FRONTAL/LAT * * * * Physician Interpretation * * * * EXAMINATION: CHEST RADIOGRAPH (2 VIEW FRONTAL AND LATERAL) CLINICAL HISTORY: Acute cough MQ: XC2_6 EXAM DATE/TIME: 05/10/2024 3:24 PM COMPARISON: Chest x-ray dated 07/01/2013 RESULT: Lines, tubes, and devices: None. Lungs and pleura: No consolidation. No lung mass. No pleural effusion. No pneumothorax. Cardiomediastinal silhouette: Normal cardiomediastinal silhouette. Bones and soft tissues: Unremarkable. IMPRESSION IMPRESSION: No acute radiographic abnormality. Membership Correspondent: LINNETTE Transcribe Date/Time: May 10 2024 3:24P Dictated by : SALMA SINCLAIR MD Medrol dose pack for the cough . Potential red flag symptoms discussed with the patient. Reviewed appropriate action plan to take if red flag symptoms occur. Patient agreeable to treatment plan. Maura Harry APRN.SCANNER OPERATOR Allergies As of Date: 05/10/2024 (No Known Allergies) Date Reviewed: 05/10/2024 Reviewed by: Sa Lexy (more content not included)... Normal [facility] XR CHEST 2V FRONTAL/LATon XR CHEST 2V FRONTAL/LAT * * *Final Report* * * DATE OF EXAM: May 10 2024 3:24PM WOX [id number] - XR CHEST 2V FRONTAL/LAT / PROCEDURE REASON: Acute cough * * * * Physician Interpretation * * * * EXAMINATION: CHEST RADIOGRAPH (2 VIEW FRONTAL and LATERAL) CLINICAL HISTORY: Acute cough MQ: XC2_6 EXAM DATE/TIME: 05/10/2024 3:24 PM COMPARISON: Chest x-ray dated 07/01/2013 RESULT: Lines, tubes, and devices: None. Lungs and pleura: No consolidation. No lung mass. No pleural effusion. No pneumothorax. Cardiomediastinal silhouette: Normal cardiomediastinal silhouette. Bones and soft tissues: Unremarkable. IMPRESSION: No acute radiographic abnormality. Membership Correspondent: [facility]ITAL[facility]-Ann Transcribe Date/Time: May 10 2024 3:24P Dictated by : SALMA SINCLAIR MD This examination was interpreted and the report reviewed and electronically signed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 Mother GI Father GB Hypertension Father Lipids Father GI Sister GB No Known Problems Brother Arthritis Maternal Grandmother Heart Maternal Grandmother BYPASS SURGERY Lipids Maternal Grandmother Thyroid Maternal Grandmother Hypothyroid Diabetes Maternal Grandmother COPD Maternal Grandmother Lung Cancer Maternal Grandmother Lipids Maternal Grandfather Heart Paternal Grandmother ID Lung Cancer Paternal Grandmother Colon Cancer Paternal Grandfather Prostate Cancer Paternal Grandfather Thyroid Other MATERNAL 1ST COUSIN BORN WITHOUT THYROID Social History Tobacco Use Smoking status: Every Day Current packs/day: 1.00 Types: Cigarettes Smokeless tobacco: Never Vaping Use Vaping status: current everyday user Substance Use Topics Alcohol use: Not Currently Comment: Occasionally Drug use: Not Currently Types: Cocaine, Crystal Meth, Heroin, IV, Marijuana, Opiates Review of Systems Constitutional: Negative for chills and fever. HENT: Negative for congestion, ear pain and sore throat. Respiratory: Negative for cough and shortness of breath. Cardiovascular: Negative for chest pain. Gastrointestinal: Positive for diarrhea, nausea and vomiting. Negative for abdominal pain. Genitourinary: Negative for pelvic pain, urgency, vaginal bleeding, vaginal discharge and vaginal pain. Objective BP (!) 139/49 Pulse 110 Temp 36.4 ?C (97.6 ?F) Resp 18 Wt 58 kg (127 lb 13.9 oz) LMP 12/17/2023 SpO2 99% BMI 22.66 kg/m? Physical Exam Vitals and nursing note reviewed. Exam conducted with a launch operator present. Constitutional: General: She is not in acute distress. Appearance: Normal appearance. She is not toxic-appearing. HENT: Nose: Nose normal. Mouth/Throat: Mouth: Mucous membranes are moist. Eyes: Conjunctiva/sclera: Conjunctivae normal. Cardiovascular: Rate and Rhythm: Normal rate and regular rhythm. Pulmonary: Effort: Pulmonary effort is normal. Breath sounds: Normal breath sounds. Abdominal: General: Abdomen is flat. Palpations: Abdomen is soft. Tenderness: There is no abdominal tenderness. There is no guarding or rebound. Genitourinary: Pubic Area: No rash. Vagina: Vaginal discharge present. Cervix: No friability or erythema. Adnexa: Right: No tenderness. Left: No tenderness. Comments: Small amount of physiologic discharge in vaginal vault. No cervical erythema. No adnexal tenderness. Skin: General: Skin is warm and dry. Neurological: Mental Status: She is alert. Assessment and Plan ASSESSMENT/PLAN: 1. Screening for STD (sexually transmitted disease) - ICD9: V74.5, ICD10: Z11.3 (pr (more content not included)... Normal [facility] Progress Noteon 03-16-2024 Progress Note Chief Complaint Patient presents with Drug / Alcohol Assessment I did spend --31- minutes preparing for visit, counseling, providing discussion on recovery progress and treatment plan of patient, and management of prescription medications and future scheduling. Patient was seen today via Telehealth by agreement and consent. I used the following Telehealth technology: Audio and video capabilities. Patient location: Patient Location: Home. This patient encounter is appropriate and reasonable under the circumstances: Behavioral Health . The patient has been advised of the potential risks and limitations of this mode of treatment (including but not limited to the absence of in-person examination) and has agreed to be treated in a remote fashion in spite of them. Any and all of the patient's/patient's family's questions on this issue have been answered and I have made no promises or guarantees to the patient. The patient has also been advised to contact this office for worsening conditions or problems, and seek emergency medical treatment and/or call 911 if the patient deems either necessary. The patient stated that they are currently in the state [facility]. If the patient is a minor, permission has been obtained by the parent or guardian for the patient to receive medical care at this visit. HPI: Genesis Bradford, a 38 y.o. female, who returns for a follow-up MAT appointment. UDS 01/31 ok OARRS ok rx 02/27--03/30 RX 03/29-04/13 provided Busy at work--doing some overtime--did limit her overime hours Also going to school Seeing POs on regular basis Cravings : denied Sleep: denied Anxiety: denied Side effects: denied New medications : denied Recovery status Maintaining sobriety: yes Treatment status: Completed treatment Past Medical History: Diagnosis Date Hepatitis C Current Outpatient Medications on File Prior to Visit Medication Sig Dispense Refill [DISCONTINUED] buprenorphine-naloxone (Suboxone) 8-2 MG per sublingual film Place 1 Film under the tongue 2 times daily. 60 Film 0 No current facility-administered medications on file prior to visit. No Known Allergies Social History Socioeconomic History Marital status: Significant Other Spouse name: Not on file Number of children: Not on file Years of education: Not on file Highest education level: Not on file Occupational History Not on file Tobacco Use Smoking status: Every Day Smokeless tobacco: Not on file Substance and Sexual Activity Alcohol use: Not Currently Drug use: Yes Types: Methamphetamines Sexual activity: Not on file Other Topics Concern Not on file Social History Narrative Not on file Social Drivers of Health Financial Resource Strain: Not on File (05/14/2023) Received from [facility] Financial Resource Strain Financial Resource Strain: 0 Food Insecurity: Not on File (02/18/2024) Received from [facility] Food Insecurity Food: 0 Transportation Needs: Not on File (05/14/2023) Received from [facility] Transportation Needs Transportation: 0 Physical Activity: Not on File (05/14/2023) Received from [facility] Physical Activity Physical Activity: 0 Stress: Not on File (05/14/2023) Received from [facility] Stress Stress: 0 Social Connections: Not on File (02/17/2024) Received from [facility] Social Optimitive Connectedness: 0 Intimate Partner Violence: Not on file Housing Stability: Not on File (05/14/2023) Received from [facility] Housing Stability Housin No family history on file. Objective There were no vitals taken for this visit. Mental status Attitude: cooperative Orientation: oriented X 3 Mood: normal Affect: reactive, mood congruent, normal range Speech: clear, normal R/V/R Thought process: unremarkable Association: no loose associations Thought content: normal Psychotic thoughts: No hallucinations or suicidal ideation Impulse control: good Judgement and insight: good Memory recent, remote within normal limits Assessment: Opiate dependence in remission Plan Patient Goals: 1. Continue 12-step meeting attendance (goal of 2 per week). 2. Actively communicate with sponsor. 3. Take medication as directed and report any negative side effects or missed doses. 4. Report any illicit drug use to either the briefcase sewer or myself/my staff. 5. Keep medicine out of the reach of children. 6. Follow-up with recommended level of care. Interventions in Session: 1. Discussed patient's progress in their 12-step program. 2. Discussed progress in recovery and overall well-being. 3. Discussed stressors/triggers for a potential relapse & related coping mechanisms. Medication Management: Patient stable on current dose, will continue 16 mg Suboxone daily, reassess in 4 weeks. [x] Suboxone film [] Buprenorphine/naloxone tabs [] Subutex No orders of the defined types were placed in this encounter. New Medications Ordered This Visit Medications (more content not included)... Normal [facility] Progress Noteon 02-17-2024 Progress Note Chief Complaint Patient presents with Drug / Alcohol Assessment I did spend -31 minutes preparing for visit, counseling, providing discussion on recovery progress and treatment plan of patient, and management of prescription medications and future scheduling. Patient was seen today via Telehealth by agreement and consent. I used the following Telehealth technology: Audio and video capabilities. Patient location: work. This patient encounter is appropriate and reasonable under the circumstances: Behavioral Health . The patient has been advised of the potential risks and limitations of this mode of treatment (including but not limited to the absence of in-person examination) and has agreed to be treated in a remote fashion in spite of them. Any and all of the patient's/patient's family's questions on this issue have been answered and I have made no promises or guarantees to the patient. The patient has also been advised to contact this office for worsening conditions or problems, and seek emergency medical treatment and/or call 911 if the patient deems either necessary. The patient stated that they are currently in the state [facility]. If the patient is a minor, permission has been obtained by the parent or guardian for the patient to receive medical care at this visit. HPI: Genesis Bradford, a 38 y.o. female, who returns for a follow-up MAT appointment. 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 30 Film 0 No current facility-administered medications on file prior to visit. No Known Allergies Social History Socioeconomic History Marital status: Significant Other Spouse name: Not on file Number of children: Not on file Years of education: Not on file Highest education level: Not on file Occupational History Not on file Tobacco Use Smoking status: Every Day Smokeless tobacco: Not on file Substance and Sexual Activity Alcohol use: Not Currently Drug use: Yes Types: Methamphetamines Sexual activity: Not on file Other Topics Concern Not on file Social History Narrative Not on file Social Determinants of Health Financial Resource Strain: Not on File (05/14/2023) Received from [facility] Financial Resource Strain Financial Resource Strain: 0 Food Insecurity: Not on file (02/01/2024) Transportation Needs: Not on File (05/14/2023) Received from [facility] Transportation Needs Transportation: 0 Physical Activity: Not on File (05/14/2023) Received from [facility] Physical Activity Physical Activity: 0 Stress: Not on File (05/14/2023) Received from [facility] Stress Stress: 0 Social Connections: Not on File (05/14/2023) Received from [facility] Social Connections Social Connections and Isolation: 0 Intimate Partner Violence: Not on file Housing Stability: Not on File (05/14/2023) Received from [employer] Hous[place] No family history on file. Objective There were no vitals taken for this visit. Mental status Attitude: cooperative Orientation: oriented X 3 Mood: normal Affect: reactive, mood congruent, normal range Speech: clear, normal R/V/R Thought process: unremarkable Association: no loose associations Thought content: normal Psychotic thoughts: No hallucinations or suicidal ideation Impulse control: good Judgement and insight: good Memory recent, remote within normal limits Assessment: Opiate dependence in remission Plan Patient Goals: 1. Continue 12-step meeting attendance (goal of 2 per week). 2. Actively communicate with sponsor. 3. Take medication as directed and report any negative side effects or missed doses. 4. Report any illicit drug use to either the briefcase sewer or myself/my staff. 5. Keep medicine out of the reach of children. 6. Follow-up with recommended level of care. Interventions in Session: 1. Discussed patient's progress in their 12-step program. 2. Discussed progress in recovery and overall well-being. 3. Discussed stressors/triggers for a potential relapse & related coping mechanisms. Medication Management: Patient stable on current dose, will continue 16 mg Suboxone daily, reassess in 2 weeks. [x] Suboxone film [] Buprenorphine/naloxone tabs [] Subutex No orders of the defined types were placed in this encounter. New Medications Ordered This Visit Medications buprenorphine-naloxone (Suboxone) 8-2 MG per sublingual film Sig: Place 1 Film under the tongue (more content not included)... Normal [facility] Progress Noteon 02-02-2024 Progress Note Chief Complaint Patient presents with Drug / Alcohol Assessment I did spend --31- minutes preparing for visit, counseling, providing discussion on recovery progress and treatment plan of patient, and management of prescription medications and future scheduling. Patient was seen today via Telehealth by agreement and consent. I used the following Telehealth technology: Audio and video capabilities. Patient location: Patient Location: Home. This patient encounter is appropriate and reasonable under the circumstances: Behavioral Health . The patient has been advised of the potential risks and limitations of this mode of treatment (including but not limited to the absence of in-person examination) and has agreed to be treated in a remote fashion in spite of them. Any and all of the patient's/patient's family's questions on this issue have been answered and I have made no promises or guarantees to the patient. The patient has also been advised to contact this office for worsening conditions or problems, and seek emergency medical treatment and/or call 911 if the patient deems either necessary. The patient stated that they are currently in the state [facility]. If the patient is a minor, permission has been obtained by the parent or guardian for the patient to receive medical care at this visit. HPI: Genesis Bradford, a 38 y.o. female, who returns for a follow-up MAT appointment. 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 28 Film 0 No current facility-administered medications on file prior to visit. No Known Allergies Social History Socioeconomic History Marital status: Significant Other Spouse name: Not on file Number of children: Not on file Years of education: Not on file Highest education level: Not on file Occupational History Not on file Tobacco Use Smoking status: Every Day Smokeless tobacco: Not on file Substance and Sexual Activity Alcohol use: Not Currently Drug use: Yes Types: Methamphetamines Sexual activity: Not on file Other Topics Concern Not on file Social History Narrative Not on file Social Determinants of Health Financial Resource Strain: Not on File (05/14/2023) Received from [facility] Financial Resource Strain Financial Resource Strain: 0 Food Insecurity: Not on file (02/01/2024) Transportation Needs: Not on File (05/14/2023) Received from [facility] Transportation Needs Transportation: 0 Physical Activity: Not on File (05/14/2023) Received from [facility] Physical Activity Physical Activity: 0 Stress: Not on File (05/14/2023) Received from [facility] Stress Stress: 0 Social Connections: Not on File (05/14/2023) Received from [facility] Social Connections Social Connections and Isolation: 0 Intimate Partner Violence: Not on file Housing Stability: Not on File (05/14/2023) Received from [employer] [facility] [place] No family history on file. Objective There were no vitals taken for this visit. Mental status Attitude: cooperative Orientation: oriented X 3 Mood: normal Affect: reactive, mood congruent, normal range Speech: clear, normal R/V/R Thought process: unremarkable Association: no loose associations Thought content: normal Psychotic thoughts: No hallucinations or suicidal ideation Impulse control: good Judgement and insight: good Memory recent, remote within normal limits Assessment: Opiate dependence in remission Plan Patient Goals: 1. Continue 12-step meeting attendance (goal of 2 per week). 2. Actively communicate with sponsor. 3. Take medication as directed and report any negative side effects or missed doses. 4. Report any illicit drug use to either the briefcase sewer or myself/my staff. 5. Keep medicine out of the reach of children. 6. Follow-up with recommended level of care. Interventions in Session: 1. Discussed patient's progress in their 12-step program. 2. Discussed progress in recovery and overall well-being. 3. Discussed stressors/triggers for a potential relapse & related coping mechanisms. Medication Management: Patient stable on current dose, will continue 16 mg Suboxone daily, reassess in 2 weeks. [x] Suboxone film [] Buprenorphine/naloxone tabs [] Subutex No orders of the defined types were placed in this encounter. New Medications Ordered This Visit Medications buprenorphine-naloxone (Suboxone) 8-2 MG per subli (more content not included)... Normal [facility] MEDICATION ASSISTED TREATMEN T PANELOrdered By: Gwen Vigil on 02-01-2024 Amphetamines Ql (U) Negative Negative [facility] Barbiturates screen method Nom (U) Negative Negative [facility] Benzodiazepines screen method Nom (U) Negative Negative [facility] BUPRENORPHINE SCREEN Positive Negative [facility] Cocaine Ql (U) Negative Negative [facility] Ethanol [Mass/Vol] Negative Negative [facility] FENTANYL Negative Negative [facility] Methadone Ql (U) Negative Negative [facility] Opiates Screen Ql (U) Negative [facility] OXYCODONE/OXYMORPHONE Negative [facility] PCP Negative Negative [facility] THC Negative Negative [facility] The expected value f or the drugs listed above is Negative. The following drugs or drug groups have been screened for by Immunoassay at the following thresholds: Amphetamine class(1000ng/mL) Barbituates(200ng/mL) Benzodiazepines(200ng/m L) Cocaine(300ng/mL) Ethanol (50 ng/mL) Methadone(300ng/mL) Opiates(300ng/mL) Oxycodone(100ng/mL) PCP(25ng/mL) Buprenorphine(5ng/mL) THC(50ng/mL) Fentanyl(1ng/mL) Positive results are NOT confirmed by a more specific alternative method unless requested. If confirmation is needed, request confirmation under separate order. NOTE: These results are for medical treatment only. Analysis performed using non-forensic procedures. [facility] MEDICATION ASSISTED TREATMEN T PANELon 02-01-2024 Amphetamines Ql (U) Negative Normal Negative [facility] Comment on above: Performed By: #### L [id number] ####Consulting Manager: AMANDA PAK ([phone])[facility])[address] [place] [address] BARBITURATES Negative Normal Negative [facility] Comment on above: Performed By: #### L [id number] ####Consulting Manager: AMANDA PAK ([phone])[facility])[address] [place] [address] Benzodiazepines Ql (U) Negative Normal Negative [facility] Comment on above: Performed By: #### L [id number] ####Consulting Manager: AMANDA [phone])[facility])[address] [place] [address] BUPRENORPHINE SCREEN Positive Normal Negative [facility] Comment on above: Performed By: #### L [id number] ####Consulting Manager: AMANDA PAK ([phone])[facility])[address] [place] [address] Cocaine Ql (U) Negative Normal Negative [facility] Comment on above: Performed By: #### L [id number] ####Consulting Manager: AMANDA PAK ([phone])[facility])[address] [place] [address] ETHANOL-ETOHO Negative Normal Negative [facility] Comment on above: Result Comment: JOHNY David COMMENTS: The expected value for the drugs listed above is Negative. The following drugs or drug groups have been screened for by Immunoassay at the following thresholds: Amphetamine class(1000ng/mL) Barbituates(200ng/mL) Benzodiazepines(200ng/mL) Cocaine(300ng/mL) Ethanol (50 ng/mL) Methadone(300ng/mL) Opiates(300ng/mL) Oxycodone(100ng/mL) PCP(25ng/mL) Buprenorphine(5ng/mL) THC(50ng/mL) Fentanyl(1ng/mL) Positive results are NOT confirmed by a more specific alternative method unless requested. If confirmation is needed, request confirmation under separate order. NOTE: These results are for medical treatment only. Analysis performed using non-forensic procedures. Performed By: #### L [id number] ####Consulting Manager: AMANDA APK ([phone])[address] FENTANYL Negative Normal Negative [facility] Comment on above: Performed By: #### L [id number] ####Consulting Manager: AMANDA PAK ([phone])[address] Methadone Ql (U) Negative Normal Negative [facility] Comment on above: Performed By: #### L [id number] ####Consulting Manager: AMANDA PAK ([phone])[facility])[address] [place] [address] Opiates Ql (U) Negative Normal Negative [facility] Comment on above: Performed By: #### L [id number] ####Consulting Manager: AMANDA PAK ([phone])[facility])[address] [place] [address] OXYCODONE/OXYMORPHONE Negative Normal Negative [facility] Comment on above: Performed By: #### L [id number] ####Consulting Manager: AMANDA PAK ([phone])[facility])[address] [place] [address] PCP Negative Normal Negative [facility] Comment on above: Performed By: #### L [id number] ####Consulting Manager: AMANDA PAK ([phone])[facility])[address] [place] [address] THC-MTTHC Negative Normal Negative [facility] Comment on above: Performed By: #### L [id number] ####Consulting Manager: AMANDA PAK ([phone])[facility])[address] [place] [address] 36on 01-19-2024 36 Recent results, rout ed to you Normal [facility] Progress Noteon 01-19-2024 Progress Note Chief Complaint Patient presents with Drug / Alcohol Assessment I did spend --24- minutes preparing for visit, counseling, providing discussion on recovery progress and treatment plan of patient, and management of prescription medications and future scheduling. Patient was seen today via Telehealth by agreement and consent. I used the following Telehealth technology: Audio and video capabilities. Patient location: car. This patient encounter is appropriate and reasonable under the circumstances: Behavioral Health . The patient has been advised of the potential risks and limitations of this mode of treatment (including but not limited to the absence of in-person examination) and has agreed to be treated in a remote fashion in spite of them. Any and all of the patient's/patient's family's questions on this issue have been answered and I have made no promises or guarantees to the patient. The patient has also been advised to contact this office for worsening conditions or problems, and seek emergency medical treatment and/or call 911 if the patient deems either necessary. The patient stated that they are currently in the [facility]. If the patient is a minor, permission has been obtained by the parent or guardian for the patient to receive medical care at this visit. HPI: Genesis Bradford, a 38 y.o. female, who returns for a follow-up MAT appointment. UDS 12/07 ok--UDS 01/17 Buprenorphine negative OARRS ok In good spirits Staying clean Going to work Started another job at [employer] Cravings : denied Sleep: denied Anxiety: denied Side effects: denied New medications : denied Recovery status Maintaining sobriety: yes Treatment status: Completed treatment Past Medical History: Diagnosis Date Hepatitis C Current Outpatient Medications on File Prior to Visit Medication Sig Dispense Refill [DISCONTINUED] buprenorphine-naloxone (Suboxone) 8-2 MG per sublingual film Place 1 Film under the tongue 2 times daily for 14 days. 28 Film 0 No current facility-administered medications on file prior to visit. No Known Allergies Social History Socioeconomic History Marital status: Significant Other Spouse name: Not on file Number of children: Not on file Years of education: Not on file Highest education level: Not on file Occupational History Not on file Tobacco Use Smoking status: Every Day Smokeless tobacco: Not on file Substance and Sexual Activity Alcohol use: Not Currently Drug use: Yes Types: Methamphetamines Sexual activity: Not on file Other Topics Concern Not on file Social History Narrative Not on file Social Determinants of Health Financial Resource Strain: Not on File (05/14/2023) Received from [facility] Financial Resource Strain Financial Resource Strain: 0 Food Insecurity: Not on File (05/14/2023) Received from [facility] Food Insecurity Food: 0 Transportation Needs: Not on File (05/14/2023) Received from [facility] Transportation Needs Transportation: 0 Physical Activity: Not on File (05/14/2023) Received from [facility] Physical Activity Physical Activity: 0 Stress: Not on File (05/14/2023) Received from [facility] Stress Stress: 0 Social Connections: Not on File (05/14/2023) Received from [facility] Social Connections Social Connections and Isolation: 0 Intimate Partner Violence: Not on file Housing Stability: Not on File (05/14/2023) Received from [facility] Housing Stability Housin No family history on file. Objective There were no vitals taken for this visit. Mental status Attitude: cooperative Orientation: oriented X 3 Mood: normal Affect: reactive, mood congruent, normal range Speech: clear, normal R/V/R Thought process: unremarkable Association: no loose associations Thought content: normal Psychotic thoughts: No hallucinations or suicidal ideation Impulse control: good Judgement and insight: good Memory recent, remote within normal limits Assessment: Opiate dependence in remission Plan Patient Goals: 1. Continue 12-step meeting attendance (goal of 2 per week). 2. Actively communicate with sponsor. 3. Take medication as directed and report any negative side effects or missed doses. 4. Report any illicit drug use to either the briefcase sewer or myself/my staff. 5. Keep medicine out of the reach of children. 6. Follow-up with recommended level of care. Interventions in Session: 1. Discussed patient's progress in their 12-step program. 2. Discussed progress in recovery and overall well-being. 3. Discussed stressors/triggers for a potential relapse & related coping mechanisms. Medication Management: Patient stable on current dose, will continue 16 mg Suboxone daily, reassess in 2 weeks. [x] Suboxone film [] Buprenorphine/naloxone tabs [] Subutex Orders Placed This Encounter Procedures MEDICATION ASSISTED TREATMENT PANEL New Medications Ordered This Visit Medications (more content not included)... [facility] 36on 01-18-2024 36 Name of caller: Shey gusman Contact phone number: [phone] Relationship to Patient: patient Provider: Dr Oconnell Practice: Health Chief Complaint/Reason for Call: pt is calling in regards to her urine sample and is not able to come this week to leave a urine sample due to her finances and school. Her first paycheck is Thursday. She dropped a urine on with her PO. She is going this to leave a drop. She is asking if Dr Oconnell would like these results, before she is able to get to the office please advise. Best time of day caller can be reached: AM Patient advised that office/PCP has 24-48 business hours to return their call: Yes [facility] Progress Noteon 01-05-2024 Progress Note Chief Complaint Patient presents with Drug / Alcohol Assessment I did spend -31-- minutes preparing for visit, counseling, providing discussion on recovery progress and treatment plan of patient, and management of prescription medications and future scheduling. Patient was seen today via Telehealth by agreement and consent. I used the following Telehealth technology: Audio and video capabilities. Patient location: Patient Location: Home. This patient encounter is appropriate and reasonable under the circumstances: Behavioral Health . The patient has been advised of the potential risks and limitations of this mode of treatment (including but not limited to the absence of in-person examination) and has agreed to be treated in a remote fashion in spite of them. Any and all of the patient's/patient's family's questions on this issue have been answered and I have made no promises or guarantees to the patient. The patient has also been advised to contact this office for worsening conditions or problems, and seek emergency medical treatment and/or call 911 if the patient deems either necessary. The patient stated that they are currently in the state [facility]. If the patient is a minor, permission has been obtained by the parent or guardian for the patient to receive medical care at this visit. HPI: Genesis Bradford, a 38 y.o. female, who returns for a follow-up MAT appointment. 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 28 Film 0 No current facility-administered medications on file prior to visit. No Known Allergies Social History Socioeconomic History Marital status: Significant Other Spouse name: Not on file Number of children: Not on file Years of education: Not on file Highest education level: Not on file Occupational History Not on file Tobacco Use Smoking status: Every Day Smokeless tobacco: Not on file Substance and Sexual Activity Alcohol use: Not Currently Drug use: Yes Types: Methamphetamines Sexual activity: Not on file Other Topics Concern Not on file Social History Narrative Not on file Social Determinants of Health Financial Resource Strain: Not on File (05/14/2023) Received from [facility] Financial Resource Strain Financial Resource Strain: 0 Food Insecurity: Not on File (05/14/2023) Received from [facility] Food Insecurity Food: 0 Transportation Needs: Not on File (05/14/2023) Received from [facility] Transportation Needs Transportation: 0 Physical Activity: Not on File (05/14/2023) Received from [facility] Physical Activity Physical Activity: 0 Stress: Not on File (05/14/2023) Received from [facility] Stress Stress: 0 Social Connections: Not on File (05/14/2023) Received from [facility] Social Connections Social Connections and Isolation: 0 Intimate Partner Violence: Not on file Housing Stability: Not on File (05/14/2023) Received from [facility] Housing Stability Housin No family history on file. Objective There were no vitals taken for this visit. Mental status Attitude: cooperative Orientation: oriented X 3 Mood: normal Affect: reactive, mood congruent, normal range Speech: clear, normal R/V/R Thought process: unremarkable Association: no loose associations Thought content: normal Psychotic thoughts: No hallucinations or suicidal ideation Impulse control: good Judgement and insight: good Memory recent, remote within normal limits Assessment: Opiate dependence in remission Plan Patient Goals: 1. Continue 12-step meeting attendance (goal of 2 per week). 2. Actively communicate with sponsor. 3. Take medication as directed and report any negative side effects or missed doses. 4. Report any illicit drug use to either the briefcase sewer or myself/my staff. 5. Keep medicine out of the reach of children. 6. Follow-up with recommended level of care. Interventions in Session: 1. Discussed patient's progress in their 12-step program. 2. Discussed progress in recovery and overall well-being. 3. Discussed stressors/triggers for a potential relapse & related coping mechanisms. Medication Management: Patient stable on current dose, will continue 16 mg Suboxone daily, reassess in 2 weeks. [x] Suboxone film [] Buprenorphine/naloxone tabs [] Subutex Orders Placed This Encounter Procedures MEDICATION ASSISTED TREATMENT PANEL New Medications (more content not included)... Normal [facility] C. trachomatis+N. gonorrhoea e DNA DARIO+probe Ql (Unsp spec)on 01-04-2024 C. trachomatis rRNA DARIO+probe Ql (Unsp spec) Negative Normal Negative for Chlamydia trachomatis by amplificaton [facility] Comment on above: Order Comment: Speci men Type: SWABOrdering Facility: [facility] Address: [address] [place] [address] Performed By: #### 3 [id number] ####[facility] [id number] [place] [address] [place] N. gonorrhoeae rRNA DARIO+probe Ql (Unsp spec) Negative Normal Negative for Neisseria gonorrhoeae by amplification [facility] Comment on above: Order Comment: Speci men Type: SWABOrdering Facility: [facility] Address: [address] [place] [address] Performed By: #### 3 [id number] ####[facility] [id number] [address] [place] CNOVon 01-04-2024 CNOV Office Visit (OBGYWM ) GENESIS BRADFORD ([id number]) 1985 F Date Time Provider Department 01/04/24 2:00 PM RENA DOWNEY OBGYWM During your visit today, we recorded the following information about you: Blood pressure Weight Last Period 120/74 57.4 kg 12/17/23 Rena Downey MD 01/04/2024 1:53 PM Signed Genesis is a 38 year old Female who presents today for a colposcopy. The patient's last pap smear was ASCUS with positive HPV from October 2023. Patient has a history of abnormal pap: Yes. The patient has had prior treatment: LEEP. test: negative UNIVERSAL PROTOCOL / SAFETY CHECKLIST Procedure to be Performed: Colposcopy with Possible Biopsies Sign In: A Moment of CARE was completed. Personnel directly involved with the procedure wore the appropriate PPE (Personal Protective Equipment). Patient/Surrogate Stated/Verified: PATIENT VERIFIED(optional for EMERGENT procedures): Patient name, Date of , Relevant allergies, and The intended procedure Time Out Communication: Intended patient and procedure match the source documents. Consent documented and matches the intended procedure. Relevant labs, photos, and/or imaging studies have been reviewed. No implant(s) inserted. Sign Out: SIGN OUT (optional for EMERGENT procedures): All specimen containers correctly labeled. All instruments, equipment, possible retained foreign bodies accounted for. Post-procedure follow-up management communicated and Plan of Care Visit completed when applicable. PROCEDURE: EXTERNAL GENITALIA: Normal in appearance without lesions VAGINA: Normal in appearance without lesions CERVIX: Speculum placed in vagina and excellent visualization of cervix achieved. Cervix swabbed x 3 with 3% acetic acid solution. Cervix grossly normal. Squamocolumnar junction visualized. acetowhite changes noted -diffusely, punctations noted -none, whorled mosaicism (HPV changes) noted -none, mosaicism noted -none, and atypical vasculature noted -none. BIOPSY: Done at 6:00 and 12:00 ECC: done HEMOSTASIS: Obtained with silver nitrate and pressure Procedure Summary: Patient tolerated procedure well and colposcopy was adequate. ASSESSMENT: SCUS + HRHPV PLAN: Specimens labeled and sent to Pathology. Will notify patient of results in 1-2 weeks. Post-procedure instructions reviewed and written material given to the patient. patient prefers hyst if needs repeat excision and cervix is flush, would be concerned about being able to visualize cervix in future if repeat excisional procedure recommend HPV vaccines, she will consider requests STi screen MD Kaden Frazier, Rena Encinas MD 01/04/2024 1:42 PM Addendum Gardasil Gardasil is a vaccine to protect against Human Papillomavirus (HPV) types 6, 11, 16, 18, 31,33,45, 52, 58. These viruses cause cancer and precancerous lesions on the cervix (opening between vagina and uterus), in the vagina and on the vulva (skin around the outside of the vagina) as well as genital warts. The vaccine cannot cause these diseases and cannot treat them if already present. Gardasil works best if given before contact with HPV. Most people are exposed to HPV soon after starting sexual activity. The vaccine is recommended between the ages of 9 and 45. Gardasil does not protect against all strains of HPV. Women who receive the vaccine still need to have regular pelvic exams and cervical cancer screening with the pap smear. You should ask your doctor if Gardasil is right for you if you have a weakened immune system, a bleeding disorder, plan to become soon or have a current illness causing fever. Gardasil is not recommended for women. You should be sure your doctor is aware of any allergies you have and all medications and herbal supplements you take. Gardasil is given to those ages 9-14 in 2 doses at 0 and 8 months. In ages 15-45, three injections are given at 0,2,6 months. Common side effects include pain, redness, itching and swelling at the injection site, nausea, fever, dizziness and fainting. Rare but potentially serious reactions have been reported. These include allergic reaction, swollen glands, joint and muscle pain, weakness and Guillain-Trion syndrome. YOUR RECOVERY It may take a few weeks for your cervix to heal. While your cervix heals, you may have: - Vaginal bleeding (less than a normal menstrual period) - Mild cramping - A brown-black vaginal discharge (similar to coffee grounds) which is a result of the paste used to help stop bleeding from the procedure Do NOT put anything in the vagina for 1 week after your colposcopy if your doctor does a biopsy of your cervix. This includes sex, tampons, and douches. If you have any discomfort, you may take an over the counter pain medication (motrin, advil, ibuprofen, tylenol, etc). If this do (more content not included)... Normal [facility] SURGICAL PATHOLOGYon 024 CASE REPORT Normal [facility] Comment on above: Order Comment: Speci men Type: TISSUE SPECIMENOrdering Facility: [facility] Address: [address] [place] [address] Result Comment: Surg [facility] Pathology Report Case: [id number] Authorizing Provider: Rena Downey MD Collected: 01/04/2024 02:00 PM Ordering Location: OB/Gynecology Received: 01/04/2024 04:07 PM Pathologist: Amanda Ruiz MD Specimens: A) - Endocervix, Curettings B) - Cervix, Biopsy, 6 and 12 oclock Performed By: #### S ####[facility] [id number] [place] [address] [place] CLINICAL HISTORY ascus Normal [facility] Comment on above: Order Comment: Speci men Type: TISSUE SPECIMENOrdering Facility: [facility] Address: [address] [place] [address] Performed By: #### S ####[facility] [id number] [place] [address] [place] FINAL DIAGNOSIS Normal [facility] Comment on above: Order Comment: Speci men Type: TISSUE SPECIMENOrdering Facility: [facility] Address: [address] [place] [address] Result Comment: A. E ndocervix, curettage: -Predominantly squamous mucosa with inflammation and reactive changes. -Minute fragment of endocervical mucosa with no significant pathologic abnormality. B. Cervix, 6 o'clock and 12 o'clock, biopsies: -Squamous mucosa with inflammation and reactive changes. Performed By: #### S ####[facility] [id number] [address] [place] FINAL PERFORMING LAB Normal [facility] Comment on above: Order Comment: Speci men Type: TISSUE SPECIMENOrdering Facility: [facility] Address: [address] [place] [address] Result Comment: Diag nostic interpretation performed at [facility], [address] [place] [address] CLIA# [id number] Athletic Equipment Custodian: Gio Richardson M.D. Performed By: #### S ####[facility] [id number] [address] [facility] GROSS DESCRIPTION Normal [facility] Comment on above: Order Comment: Speci men Type: TISSUE SPECIMENOrdering Facility: [facility] Address: [address] [place] [address] Result Comment: A. E ndocervix, Curettings Received in formalin are multiple morgan-brown, soft feathery segments of tissue admixed with mucinous material aggregating to 0.7 x 0.2 x 0.1 cm. Totally submitted in one cassette. B. Cervix, Biopsy Received in formalin are two pieces of morgan-white to red, soft tissue aggregating to 1.0 x 0.2 x 0.2 cm. Totally submitted in one cassette. Gross examination performed at [facility], [address] [place] [address] January 04, 2024 9:51 PM Performed By: #### S ####[facility] [id number] [place] [address] [place] TRICHOMONAS VAGINALIS NAATon 01-04-2024 T. vaginalis DNA DARIO+probe Ql (Unsp spec) Negative Normal Negative for Trichomonas vaginalis by amplification [facility] Comment on above: Order Comment: Speci men Type: SWABOrdering Facility: [facility] Address: [address] [place] [address] Performed By: #### T RVAMP ####[facility] [id number] [place] [address] [place] UA DIP, URINE (POC)on 2023 BILIRUBIN UA (POCT) Negative Negative [facility] CLARITY UA (POCT) Clear [facility] COLOR UA (POCT) Yellow [facility] GLUCOSE UA (POCT) Negative Negative mg/dL [facility] Hemoglobin Ql (U) Negative Negative [facility] Interpretation and review of laboratory results Abnormal [facility] KETONE UA (POCT) Negative Negative mg/dL [facility] LEUKOCYTES UA (POCT) Moderate Abnormal Negative [facility] NITRITE UA (POCT) Negative Negative [facility] PH UA (POCT) 5.5 4.5 - 8.0 [facility] Protein Ql (U) Negative Negative mg/dL [facility] SPECIFIC GRAVITY UA (POCT) >=1.030 1.005 - 1.030 [facility] UROBILINOGEN UA (POCT) 0.2 Normal E.U./d L [facility] Location:[facility], [address], [place], [address] [facility] POINT OF CARE [facility] UA DIP,URINE HCG (POC)on Beta HCG ( test) Ql (U) Negative Negative [facility] Comment on above: Location:[facility], [address], [place], [address] Construction Executive (POCT) Internal QC OK [facility] Location:[facility], [address], [place], [address] [facility] POINT OF CARE [facility] Progress Noteon 12-22-2023 Progress Note Chief Complaint Patient presents with Drug / Alcohol Assessment I did spend --24- minutes preparing for visit, counseling, providing discussion on recovery progress and treatment plan of patient, and management of prescription medications and future scheduling. Patient was seen today via Telehealth by agreement and consent. I used the following Telehealth technology: Audio and video capabilities. Patient location: Patient Location: Home. This patient encounter is appropriate and reasonable under the circumstances: Behavioral Health . The patient has been advised of the potential risks and limitations of this mode of treatment (including but not limited to the absence of in-person examination) and has agreed to be treated in a remote fashion in spite of them. Any and all of the patient's/patient's family's questions on this issue have been answered and I have made no promises or guarantees to the patient. The patient has also been advised to contact this office for worsening conditions or problems, and seek emergency medical treatment and/or call 911 if the patient deems either necessary. The patient stated that they are currently in the [facility]. If the patient is a minor, permission has been obtained by the parent or guardian for the patient to receive medical care at this visit. HPI: Genesis Bradford, a 38 y.o. female, who returns for a follow-up MAT appointment. UDS 12/07 ok OARRS ok Looking for job Will start school in month Seeing PO on regular basis Cravings : denied Sleep: denied Anxiety: denied Side effects: denied New medications : denied Recovery status Maintaining sobriety: yes Treatment status: Completed treatment Past Medical History: Diagnosis Date Hepatitis C Current Outpatient Medications on File Prior to Visit Medication Sig Dispense Refill [DISCONTINUED] buprenorphine-naloxone (Suboxone) 8-2 MG per sublingual film Place 1 Film under the tongue 2 times daily for 14 days. 28 Film 0 No current facility-administered medications on file prior to visit. No Known Allergies Social History Socioeconomic History Marital status: Significant Other Spouse name: Not on file Number of children: Not on file Years of education: Not on file Highest education level: Not on file Occupational History Not on file Tobacco Use Smoking status: Every Day Smokeless tobacco: Not on file Substance and Sexual Activity Alcohol use: Not Currently Drug use: Yes Types: Methamphetamines Sexual activity: Not on file Other Topics Concern Not on file Social History Narrative Not on file Social Determinants of Health Financial Resource Strain: Not on File (05/14/2023) Received from [facility] Financial Resource Strain Financial Resource Strain: 0 Food Insecurity: Not on File (05/14/2023) Received from [facility] Food Insecurity Food: 0 Transportation Needs: Not on File (05/14/2023) Received from [employer] [facility] Transportation Needs Transportation: 0 Physical Activity: Not on File (05/14/2023) Received from [employer] [facility] [employer] Physical Activity Physical Activity: 0 Stress: Not on File (05/14/2023) Received from [facility] Stress Stress: 0 Social Connections: Not on File (05/14/2023) Received from [facility] Social Connections Social Connections and Isolation: 0 Intimate Partner Violence: Not on file Housing Stability: Not on File (05/14/2023) Received from [employer] Housing Stability Housin No family history on file. Objective There were no vitals taken for this visit. Mental status Attitude: cooperative Orientation: oriented X 3 Mood: normal Affect: reactive, mood congruent, normal range Speech: clear, normal R/V/R Thought process: unremarkable Association: no loose associations Thought content: normal Psychotic thoughts: No hallucinations or suicidal ideation Impulse control: good Judgement and insight: good Memory recent, remote within normal limits Assessment: Opiate dependence in remission Plan Patient Goals: 1. Continue 12-step meeting attendance (goal of 2 per week). 2. Actively communicate with sponsor. 3. Take medication as directed and report any negative side effects or missed doses. 4. Report any illicit drug use to either the briefcase sewer or myself/my staff. 5. Keep medicine out of the reach of children. 6. Follow-up with recommended level of care. Interventions in Session: 1. Discussed patient's progress in their 12-step program. 2. Discussed progress in recovery and overall well-being. 3. Discussed stressors/triggers for a potential relapse & related coping mechanisms. Medication Management: Patient stable on current dose, will continue 16 mg Suboxone daily, reassess in 2 weeks. [x] Suboxone film [] Buprenorphine/naloxone tabs [] Subutex No orders of the defined types were placed in this encounter. New Medications Ordered This Visit Medications buprenorphine-naloxone (Suboxone) 8-2 MG (more content not included)... Normal [facility] MEDICATION ASSISTED TREATMEN T PANELon 12-08-2023 Amphetamines Ql (U) Negative Normal Negative [facility] Comment on above: Performed By: #### L [id number] ####Consulting Manager: AMANDA PAK ([phone])[facility])[address] [place] [address] BARBITURATES Negative Normal Negative [facility] Comment on above: Performed By: #### L [id number] ####Consulting Manager: AMANDA PAK ([phone])[address] Benzodiazepines Ql (U) Negative Normal Negative [facility] Comment on above: Performed By: #### L [id number] ####Consulting Manager: AMANDA PAK ([phone])[facility])[address] [place] [address] BUPRENORPHINE SCREEN Positive Normal Negative [facility] Comment on above: Performed By: #### L [id number] ####Consulting Manager: AMANDA PAK ([phone])[facility])[address] [place] [address] Cocaine Ql (U) Negative Normal Negative [facility] Comment on above: Performed By: #### L [id number] ####Consulting Manager: AMANDA PAK ([phone])[address] ETHANOL-ETOHO Negative Normal Negative [facility] Comment on above: Result Comment: JOHNY Hernandez COMMENTS: The expected value for the drugs listed above is Negative. The following drugs or drug groups have been screened for by Immunoassay at the following thresholds: Amphetamine class(1000ng/mL) Barbituates(200ng/mL) Benzodiazepines(200ng/mL) Cocaine(300ng/mL) Ethanol (50 ng/mL) Methadone(300ng/mL) Opiates(300ng/mL) Oxycodone(100ng/mL) PCP(25ng/mL) Buprenorphine(5ng/mL) THC(50ng/mL) Fentanyl(1ng/mL) Positive results are NOT confirmed by a more specific alternative method unless requested. If confirmation is needed, request confirmation under separate order. NOTE: These results are for medical treatment only. Analysis performed using non-forensic procedures. Performed By: #### L [id number] ####Consulting Manager: AMANDA PAK ([phone])[facility] [place] [address] FENTANYL Negative Normal Negative [facility] Comment on above: Performed By: #### L [id number] ####Consulting Manager: AMANDA PAK ([phone])[facility] [place] [address] Methadone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 Reviewed by: Talia Landry APRN.SCANNER OPERATOR - Fully Assessed Reason for Visit: Well Woman [1463] (more content not included)... Normal [facility] HIGH RISK HUMAN PAPILLOMA BHARTI (HPV), PCR FOR DETECTION AND GENOTYPINGon 11-12-2023 HPV 16 Ag Ql (Unsp spec) Not detected Normal Not detected [facility] Comment on above: Order Comment: Speci men Type: FLUID SPECIMENOrdering Facility: [facility] Address: [address] [place] [address] Performed By: #### L [id number], HPVHRT ####[facility] [id number] [place] [address] [place] HPV 18 Ag Ql (Unsp spec) Not detected Normal Not detected [facility] Comment on above: Order Comment: Speci men Type: FLUID SPECIMENOrdering Facility: [facility] Address: [address] [place] [address] Performed By: #### L [id number], HPVHRT ####[facility] [id number] [place] [address] [place] HPV 31+33+35+39+45+51+52+5 6+58+59+66+68 DNA DARIO+probe Ql (Cvx) Detected Abnormal Not detected [facility] Comment on above: Order Comment: Speci men Type: FLUID SPECIMENOrdering Facility: [facility] Address: [address] [place] [address] Result Comment: High Risk HPV Other Type includes HPV types 31, 33, 35, 39, 45, 51, 52, 56, 58, 59, 66 and 68. Performed By: #### L [id number], HPVHRT ####[facility] [id number] [place] [address] [place] HbA1c (Bld)on 11-12-2023 Average glucose Estimated from glycated hemoglobin (Bld) [Mass/Vol] 123 mg/dL Normal [facility] Comment on above: Order Comment: Speci men Type: BLOOD SPECIMENOrdering Facility: [facility] Address: [address] [place] [address] Result Comment: eAG: (Estimated average glucose) is a calculated value from HgbA1c and is new accounts representative of the average blood glucose level in the last 2-3 month period. Performed By: #### 5 [id number] ####[facility] [id number] [place] [address] [place] HbA1c (Bld) [Mass fraction] 5.9 % High 4.3-5.6 [facility] Comment on above: Order Comment: Speci men Type: BLOOD SPECIMENOrdering Facility: [facility] Address: [address] [place] [address] Result Comment: Amer [place] Diabetes Association guidelines indicate that patients with HgbA1c in the range 5.7-6.4% are at increased risk for development of diabetes, and intervention by lifestyle modification may be beneficial. HgbA1c greater or equal to 6.5% is considered diagnostic of diabetes. Performed By: #### 5 5454-3 ####[facility] [id number] [place] [address] [place] MEDICATION ASSISTED TREATMEN T PANELOrdered By: Aruna Parson on 11-12-2023 Amphetamines Ql (U) Negative Negative [facility] Barbiturates screen method Nom (U) Negative Negative [facility] Benzodiazepines screen method Nom (U) Negative Negative [facility] BUPRENORPHINE SCREEN Positive Negative [facility] Cocaine Ql (U) Negative Negative [facility] Ethanol [Mass/Vol] Negative Negative [facility] FENTANYL Negative Negative [facility] Methadone Ql (U) Negative Negative [facility] Opiates Screen Ql (U) Negative Negative [facility] OXYCODONE/OXYMORPHONE Negative Negative [facility] PCP Negative Negative [facility] THC Negative Negative [facility] The expected value f or the drugs listed above is Negative. The following drugs or drug groups have been screened for by Immunoassay at the following thresholds: Amphetamine class(1000ng/mL) Barbituates(200ng/mL) Benzodiazepines(200ng/m L) Cocaine(300ng/mL) Ethanol (50 ng/mL) Methadone(300ng/mL) Opiates(300ng/mL) Oxycodone(100ng/mL) PCP(25ng/mL) Buprenorphine(5ng/mL) THC(50ng/mL) Fentanyl(1ng/mL) Positive results are NOT confirmed by a more specific alternative method unless requested. If confirmation is needed, request confirmation under separate order. NOTE: These results are for medical treatment only. Analysis performed using non-forensic procedures. [facility] PAP TESTon 11-12-2023 ADEQUACY Normal [facility] Comment on above: Order Comment: Speci men Type: FLUID SPECIMENOrdering Facility: [facility] Address: [address] [place] [address] Result Comment: Sati sfactory for interpretation. No endocervical component Performed By: #### L [id number], HPVHRT ####[facility] [id number] [facility] [address] [address] [place] CASE REPORT Normal [facility] Comment on above: Order Comment: Speci men Type: FLUID SPECIMENOrdering Facility: [facility] Address: [address] [place] [address] Result Comment: Gyne cologic Cytology Report Case: [id number] Authorizing Provider: Talia Landry APRN.SCANNER OPERATOR Collected: 11/12/2023 04:39 PM Ordering Location: OB/Gynecology Received: 11/13/2023 12:26 PM First Screen: Aruna Ball, CT, ASCP Rescreen: Lucia Tobar CT, ASCP Pathologist: Dee Archibald MD Specimen: Pap Test, ThinPrep, Cervix Performed By: #### L [id number], HPVHRT ####[facility] [id number] [place] [address] [place] CLINICAL HISTORY, CYTOLOGY, HOST/HOSTESS GROUND Routine Exam Normal [facility] Comment on above: Order Comment: Speci men Type: FLUID SPECIMENOrdering Facility: [facility] Address: [address] [place] [address] Performed By: #### L [id number], HPVHRT ####[facility] [id number] [place] [address] [place] FINAL PERFORMING LAB Normal [facility] Comment on above: Order Comment: Speci men Type: FLUID SPECIMENOrdering Facility: [facility] Address: [address] [place] [address] Result Comment: Tech nical component, visual display manager screening performed at [facility], [address] [place] [address] CLIA# [id number] Diagnostic interpretation performed at [facility], [address] [place] [address] CLIA# [id number] Athletic Equipment Custodian: Gio Richardson M.D. Performed By: #### L [id number], HPVHRT ####[facility] [id number] [place] [address] [place] HPV REFLEX Yes HPV Normal [facility] Comment on above: Order Comment: Speci men Type: FLUID SPECIMENOrdering Facility: [facility] Address: [address] [place] [address] Performed By: #### L [id number], HPVHRT ####[facility] [id number] [address] [address] [place] INTERPRETATION, CYTOLOGY, HOST/HOSTESS GROUND Abnormal [facility] Comment on above: Order Comment: Speci men Type: FLUID SPECIMENOrdering Facility: [facility] Address: [address] [place] [address] Result Comment: Epit helial cell abnormality. Atypical squamous cells of undetermined significance (ASC-US). Performed By: #### L [id number], HPVHRT ####[facility] [id number] [place] [address] [place] LMP 10/27/2023 Normal [facility] Comment on above: Order Comment: Speci men Type: FLUID SPECIMENOrdering Facility: [facility] Address: [address] [place] [address] Performed By: #### L [id number], HPVHRT ####[facility] [id number] [place] [address] [place] PAP DISCLAIMER COMMENT The Pap Smear is a screening test for cervical cancer. False negative results occur with all screening tests, emphasizing the need for rescreening at recommended intervals, and clinical correlation. Normal [facility] Comment on above: Order Comment: Speci men Type: FLUID SPECIMENOrdering Facility: [facility] Address: [address] [place] [address] Performed By: #### L [id number], HPVHRT ####[facility] [id number] [place] [id number] [place] PAP GENERAL CATEGORIZATION Epithelial Cell Abnormality Normal [facility] Comment on above: Order Comment: Speci men Type: FLUID SPECIMENOrdering Facility: [facility] Address: [address] [place] [address] Performed By: #### L [id number], HPVHRT ####[facility] [id number] [place] [address] [place] PAP MANAGED CARE PROVIDER COMMENT This specimen has be en analyzed by the ThinPrep Imaging System, an automated imaging and review system, which assists the laboratory in evaluating cells on ThinPrep Pap tests. Following automated imaging, selected bull from every slide are reviewed by a visual display manager. Normal [facility] Comment on above: Order Comment: Speci men Type: FLUID SPECIMENOrdering Facility: [facility] Address: [address] [place] [address] [place] [address] Performed By: #### L [id number], HPVHRT ####[facility] [id number] [place] [address] [place] MEDICATION ASSISTED TREATMEN T PANELon 11-11-2023 Amphetamines Ql (U) Negative Normal Negative [facility] Comment on above: Performed By: #### L [id number] ####Consulting Manager: AMANDA PAK ([phone])[facility])[address] [place] [address] BARBITURATES Negative Normal Negative [facility] Comment on above: Performed By: #### L [id number] ####Consulting Manager: AMANDA PAK ([phone])[facility])[address] [place] [address] Benzodiazepines Ql (U) Negative Normal Negative [facility] Comment on above: Performed By: #### L [id number] ####Consulting Manager: AMANDA PAK ([phone])[facility])[address] [place] [address] BUPRENORPHINE SCREEN Positive Normal Negative [facility] Comment on above: Performed By: #### L [id number] ####Consulting Manager: AMANDA PAK ([phone])[facility])[address] [place] [address] Cocaine Ql (U) Negative Normal Negative [facility] Comment on above: Performed By: #### L [id number] ####Consulting Manager: AMANDA PAK ([phone])[facility] [place] [address] ETHANOL-ETOHO Negative Normal Negative [facility] Comment on above: Result Comment: JOHNY Hernandez COMMENTS: The expected value for the drugs listed above is Negative. The following drugs or drug groups have been screened for by Immunoassay at the following thresholds: Amphetamine class(1000ng/mL) Barbituates(200ng/mL) Benzodiazepines(200ng/mL) Cocaine(300ng/mL) Ethanol (50 ng/mL) Methadone(300ng/mL) Opiates(300ng/mL) Oxycodone(100ng/mL) PCP(25ng/mL) Buprenorphine(5ng/mL) THC(50ng/mL) Fentanyl(1ng/mL) Positive results are NOT confirmed by a more specific alternative method unless requested. If confirmation is needed, request confirmation under separate order. NOTE: These results are for medical treatment only. Analysis performed using non-forensic procedures. Performed By: #### L [id number] ####Consulting Manager: AMANDA PAK ([phone])[facility])[address] [place] [address] FENTANYL Negative Normal Negative [facility] Comment on above: Performed By: #### L [id number] ####Consulting Manager: AMANDA PAK ([phone])[address] Methadone Ql (U) Negative Normal Negative [facility] Comment on above: Performed By: #### L [id number] ####Consulting Manager: AMANDA PAK ([id number])[facility])[address] [place] [address] Opiates Ql (U) Negative Normal Negative [facility] Comment on above: Performed By: #### L [id number] ####Consulting Manager: AMANDA PAK ([phone])[facility])[address] [place] [address] OXYCODONE/OXYMORPHONE Negative Normal Negative [facility] Comment on above: Performed By: #### L [id number] ####Consulting Manager: AMANDA [phone])[facility] ([facility])[address] [place] [address] [facility] PCP Negative Normal Negative [facility] Comment on above: Performed By: #### L [id number] ####Consulting Manager: AMANDA PAK ([phone])[facility] ([facility])[address] [facility] Negative Normal Negative [facility] Comment on above: Performed By: #### L [id number] ####Consulting Manager: AMANDA PAK ([phone])[facility] ([facility])[address] Office Visiton 11-11-2023 Follow-up visit [id number] Oksana Bradford fartun Bae 1985 F Date Provider Department Center 11/11/2023 [id number]-[facility]CIXMI[facility] ACD- None No family history on file Level of Service:09175 [place] OFFICE/OUTPATIENT NEW MODERATE MDM 45 MINUTES Reason for Visit and Comments: Drug / Alcohol Assessment [395423] Normal [facility] Progress Noteon 11-11-2023 Progress Note Chief Complaint Patient presents with Drug / Alcohol Assessment I did spend --45- minutes preparing for visit, counseling, providing discussion on recovery progress and treatment plan of patient, and management of prescription medications and future scheduling. HPI: Genesis Bradford, a 38 y.o. female, who returns for a follow-up MAT appointment. UDS provided [facility] rx buprenorphine 09/27-10/28 The patient is a 38-year-old female presenting to [facility] for treatment of opiate dependence, stimulant abuse There is an admitted history of problematic opiate, stimulant use dating back several years. Positive loss of control, increased tolerance, continued use despite adverse consequences, inability to abstain successfully on her own. Withdrawal from opiates positive for anxiety, nausea, chills, joint muscle pain. She also experienced auditory visual hallucinations secondary to stimulant use. Patient states that [facility],,-- was clean until August 2021. She was admitted in August to [facility] for rhabdomyolysis, auditory, visual hallucinations secondary to stimulant use. There was a period of questionable ensuing sobriety. In April, ,she required admission for overdose and stated that she was on life support. After this occurred, she engaged in treatment at [facility] and claims that she completed their program and continues with aftercare with this program. We are in process of trying to obtain information to confirm this. Since leaving [facility], she has not been able to find a provider to continue her on the Suboxone. Consequently, she has been tapering her medication down so that it would last longer. She is hopeful to get placed back on her therapeutic dose of Suboxone. As noted above, her most recent prescription was 28-day supply filled on September 27. Urine drug screen obtained. In meeting with the patient, she was hyperverbal, frequently needed to be redirected. Very restless, anxious, ill at ease. There were no auditory, tactile or visual disturbances. Based on my evaluation the patient, I have elected to obtain information from [facility] to confirm her engagement in treatment. Urine drug screen obtained, results pending. Will meet with patient next week. Cravings : denied Sleep: denied Anxiety: denied Side effects: denied New medications : denied Recovery status Maintaining sobriety: yes Treatment status: Completed treatment Past Medical History: Diagnosis Date Hepatitis C No current outpatient medications on file prior to visit. No current facility-administered medications on file prior to visit. Not on File Social History Socioeconomic History Marital status: Single Spouse name: Not on file Number of children: Not on file Years of education: Not on file Highest education level: Not on file Occupational History Not on file Tobacco Use Smoking status: Every Day Smokeless tobacco: Not on file Substance and Sexual Activity Alcohol use: Not Currently Drug use: Yes Types: Methamphetamines Sexual activity: Not on file Other Topics Concern Not on file Social History Narrative Not on file Social Determinants of Health Financial Resource Strain: Not on File (05/14/2023) Received from [facility] Financial Resource Strain Financial Resource Strain: 0 Food Insecurity: Not on File (05/14/2023) Received from [facility] Food Insecurity Food: 0 Transportation Needs: Not on File (05/14/2023) Received from [facility] Transportation Needs Transportation: 0 Physical Activity: Not on File (05/14/2023) Received from [facility] Physical Activity Physical Activity: 0 Stress: Not on File (05/14/2023) Received from [facility] Stress Stress: 0 Social Connections: Not on File (05/14/2023) Received from [facility] Social Connections Social Connections and Isolation: 0 Intimate Partner Violence: Not on file Housing Stability: Not on File (05/14/2023) Received from [facility] Housing Stability Housin No family history on file. Objective There were no vitals taken for this visit. Mental status Attitude: cooperative Orientation: oriented X 3 Mood: normal Affect: reactive, mood congruent, normal range Speech: clear, normal R/V/R Thought process: unremarkable Association: no loose associations Thought content: normal Psychotic thoughts: No hallucinations or suicidal ideation Impulse control: good Judgement and insight: good Memory recent, remote within normal limits Assessment: Opiate dependence in remission Plan Patient Goals: 1. Continue 12-step meeting attendance (goal of 2 per week). 2. Actively communicate with sponsor. 3. Take medication as directed and report any negative side effects or missed doses. 4. Report any illicit drug use to either the briefcase sewer or myself/my staff. 5. Keep medicine out of the reach of children. 6. Follow-up with recommended level of care. (more content not included)... [facility] Cult, [facility] 05-03-2023 Cult, Blood Specimen Description .BLOOD .ARM LEFT Special Requests Culture NO GROWTH 5 DAYS Report Status FINAL 05/02/2023 [facility] Comment on above: Performed By: #### C MPX, CK, CALLI, CBCWD, LACTIC, MG #### [place] [id number] Integrity Analyst: Nathan Arrieta MD [facility] 05-03-2023 Cult,Blood Specimen Description .BLOOD RIGHT .HAND Special Requests Culture NO GROWTH 5 DAYS Report Status FINAL 05/02/2023 [facility] Comment on above: Performed By: #### C MPX, CK, CALLI, CBCWD, LACTIC, MG #### [address] [place] [id number] Integrity Analyst: Nathan Arrieta MD, [facility] 05-01-2023 Cult, Blood Specimen Description .BLOOD RIGHT .HAND Special Requests Culture NO GROWTH 5 DAYS Report Status FINAL 05/01/2023 [facility] Comment on above: Performed By: #### C MPX, CK, CALLI, CBCWD, LACTIC, MG #### [address] [place] [address] Integrity Analyst: Nathan Arrieta MD Cult,Bloodon 05-01-2023 Cult,Blood Specimen Description .BLOOD .ARM LEFT Special Requests Culture NO GROWTH 5 DAYS Report Status FINAL 05/01/2023 Normal [facility] Comment on above: Performed By: #### C MPX, CK, CALLI, CBCWD, LACTIC, MG #### [address] [place] [address] Integrity Analyst: Nathan Arrieta MD Cult,Respiratoryon Cult,Respiratory Specimen Description .ENDOTRACHEAL Direct Exam FEW Polymorphonuclear leukocytes NO EPITHELIAL CELLS MODERATE GRAM POSITIVE COCCI IN CLUSTERS FEW GRAM POSITIVE COCCI IN PAIRS RARE GRAM POSITIVE RODS RESEMBLING DIPHTHEROIDS Culture METHICILLIN RESISTANT STAPHYLOCOCCUS AUREUS HEAVY GROWTH Most isolates are usually resistant to multiple antibiotics including other B lactams, Aminoglycosides, Macrolides, Clindamycin and Tetracycline. NORMAL RESPIRATORY CLAIRE Report Status FINAL 04/30/2023 SUSCEPTIBILITY Organism METHICILLIN RESISTANT STAPHYLOCOCCUS AUREUS Method SHIVAM Clindamycin <=0.12 SUSCEPTIBLE Daptomycin (DPA) 0.25 SUSCEPTIBLE Erythromycin >=8 RESISTANT Gentamicin <=0.5 SUSCEPTIBLE Gentamicin is used only in combination with other active agents that test susceptible. Induced Clind Resist NEGATIVE Oxacillin >=4 RESISTANT Rifampin <=0.5 SUSCEPTIBLE Tigecycline <=0.12 SUSCEPTIBLE Trimethoprim/Sulfa <=10 SUSCEPTIBLE Vancomycin <=0.5 SUSCEPTIBLE Doxycycline <=0.5 SUSCEPTIBLE Susceptible [facility] Comment on above: Performed By: #### C MPX, CK, CALLI, CBCWD, LACTIC, MG #### [address] [place] [address] Integrity Analyst: Nathan Arrieta MD Basic Metabolic Profon 04-29 Anion gap [Moles/Vol] 13 mmol/L Normal 7-16 [facility] Comment on above: Performed By: #### C MPX, CK, CALLI, CBCWD, LACTIC, MG #### [address] [place] [address] Integrity Analyst: Nathan Arrieta MD Calcium [Mass/Vol] 8.1 mg/dL Low 8.6-10.2 [facility] Comment on above: Performed By: #### C MPX, CK, CALLI, CBCWD, LACTIC, MG #### [address] [place] [address] Integrity Analyst: Nathan Arrieta MD Chloride [Moles/Vol] 107 mmol/L Normal 98-107 [facility] Comment on above: Performed By: #### C MPX, CK, CALLI, CBCWD, LACTIC, MG #### [address] [place] [address] Integrity Analyst: Nathan Arrieta MD CO2 [Moles/Vol] 23 mmol/L Normal 22-29 [facility] Comment on above: Performed By: #### C MPX, CK, CALLI, CBCWD, LACTIC, MG #### [address] [place] [address] Integrity Analyst: Nathan Arrieta MD Creatinine [Mass/Vol] 0.5 mg/dL Normal 0.50-1.00 [facility] Comment on above: Performed By: #### C MPX, CK, CALLI, CBCWD, LACTIC, MG #### [address] [place] [address] Integrity Analyst: Nathan Arrieta MD GFR/1.73 sq M.predicted among non-blacks MDRD (S/P/Bld) [Vol rate/Area] mL/min/{1.73_m2} Normal >60 [facility] Comment on above: Result Comment: These results are not intended for use in patients <18 years of age. eGFR results are calculated without a race factor using the 2020 CKD-EPI equation. Careful clinical correlation is recommended, particularly when comparing to results calculated using previous equations. The CKD-EPI equation is less accurate in patients with extremes of muscle mass, extra-renal metabolism of creatine, excessive creatine ingestion, or following therapy that affects renal tubular secretion. Performed By: #### C MPX, CK, CALLI, CBCWD, LACTIC, MG #### [address] [place] [address] Integrity Analyst: Nathan Arrieta MD Glucose [Mass/Vol] 85 mg/dL Normal 74-99 [facility] Comment on above: Performed By: #### C MPX, CK, CALLI, CBCWD, LACTIC, MG #### [place] [address] Integrity Analyst: Nathan Arrieta MD Potassium [Moles/Vol] 3.8 mmol/L Normal 3.5-5.0 [facility] Comment on above: Performed By: #### C MPX, CK, CALLI, CBCWD, LACTIC, MG #### [address] [place] [address] Integrity Analyst: Nathan Arrieta MD Sodium [Moles/Vol] 143 mmol/L Normal 132-146 [facility] Comment on above: Performed By: #### C MPX, CK, CALLI, CBCWD, LACTIC, MG #### [address] [place] [address] Integrity Analyst: Nathan Arrieta MD Urea nitrogen [Mass/Vol] 6 mg/dL Normal 6-20 [facility] Comment on above: Performed By: #### C MPX, CK, CALLI, CBCWD, LACTIC, MG #### [place] [address] Integrity Analyst: Nathan Arrieta MD CBC with Diffon 04-29-2023 Abs. Basophil 0.03 k/uL Normal 0.00-0.20 [facility] Comment on above: Performed By: #### C MPX, CK, CALLI, CBCWD, LACTIC, MG #### [place] [address] Integrity Analyst: Nathan Arrieta MD Abs.Imm.Granulocyte <0.03 Normal 0.00-0.58 [facility] Comment on above: Performed By: #### C MPX, CK, CALLI, CBCWD, LACTIC, MG #### [place] [address] Integrity Analyst: Nathan Arrieta MD Abs.Neutrophil (Seg) 4.02 k/uL Normal 1.80-7.30 [facility] Comment on above: Performed By: #### C MPX, CK, CALLI, CBCWD, LACTIC, MG #### [place] [address] Integrity Analyst: Nathan Arrieta MD Basophils/100 WBC (Bld) 0 % Normal 0.0-2.0 [facility] Comment on above: Performed By: #### C MPX, CK, CALLI, CBCWD, LACTIC, MG #### [place] [address] Integrity Analyst: Nathan Arrieta MD Eosinophils (Bld) [#/Vol] 0.74 10*3/uL High 0.05-0.50 [facility] Comment on above: Performed By: #### C MPX, CK, CALLI, CBCWD, LACTIC, MG #### [place] [address] Integrity Analyst: Nathan Arrieta MD Eosinophils/100 WBC (Bld) 8 % High 0-6 [facility] Comment on above: Performed By: #### C MPX, CK, CALLI, CBCWD, LACTIC, MG #### [address] [place] [address] Integrity Analyst: Nathan Arrieta MD Erythrocyte distribution width (RBC) [Ratio] 14.1 % Normal 11.5-15.0 [facility] Comment on above: Performed By: #### C MPX, CK, CALLI, CBCWD, LACTIC, MG #### [address] [place] [address] Integrity Analyst: Nathan Arrieta MD Hematocrit (Bld) [Volume fraction] 31.0 % Low 34.0-48.0 [facility] Comment on above: Performed By: #### C MPX, CK, CALLI, CBCWD, LACTIC, MG #### [address] [place] [address] Integrity Analyst: Nathan Arrieta MD Hemoglobin (Bld) [Mass/Vol] 9.7 g/dL Low 11.5-15.5 [facility] Comment on above: Performed By: #### C MPX, CK, CALLI, CBCWD, LACTIC, MG #### [address] [place] [address] Integrity Analyst: Nathan Arrieta MD Immature granulocytes/100 WBC (Bld) 0 % Normal 0.0-5.0 [facility] Comment on above: Performed By: #### C MPX, CK, CALLI, CBCWD, LACTIC, MG #### [address] [place] [address] Integrity Analyst: Nathan Arrieta MD Lymphocytes (Bld) [#/Vol] 3.22 10*3/uL Normal 1.50-4.00 [facility] Comment on above: Performed By: #### C MPX, CK, CALLI, CBCWD, LACTIC, MG #### [address] [place] [address] Integrity Analyst: Nathan Arrieta MD Lymphocytes/100 WBC (Bld) 36 % Normal 20.0-42.0 [facility] Comment on above: Performed By: #### C MPX, CK, CALLI, CBCWD, LACTIC, MG #### [address] [place] [address] Integrity Analyst: Nathan Arrieta MD MCH (RBC) [Entitic mass] 26.7 pg Normal 26.0-35.0 [facility] Comment on above: Performed By: #### C MPX, CK, CALLI, CBCWD, LACTIC, MG #### [address] [place] [address] Integrity Analyst: Nathan Arrieta MD MCHC (RBC) [Mass/Vol] 31.3 g/dL Low 32.0-34.5 [facility] Comment on above: Performed By: #### C MPX, CK, CALLI, CBCWD, LACTIC, MG #### [address] [place] [address] Integrity Analyst: Nathan Arrieta MD MCV (RBC) [Entitic vol] 85.4 fL Normal 80.0-99.9 [facility] Comment on above: Performed By: #### C MPX, CK, CALLI, CBCWD, LACTIC, MG #### [address] [place] [address] Integrity Analyst: Nathan Arrieta MD Monocytes (Bld) [#/Vol] 0.86 10*3/uL Normal 0.10-0.95 [facility] Comment on above: Performed By: #### C MPX, CK, CALLI, CBCWD, LACTIC, MG #### [place] [address] Integrity Analyst: Nathan Arrieta MD Monocytes/100 WBC (Bld) 10 % Normal 2.0-12.0 [facility] Comment on above: Performed By: #### C MPX, CK, CALLI, CBCWD, LACTIC, MG #### [address] [place] [address] Integrity Analyst: Nathan Arrieta MD Neutrophil (Seg) 45 % Normal 43.0-80.0 [facility] Comment on above: Performed By: #### C MPX, CK, CALLI, CBCWD, LACTIC, MG #### [address] [place] [address] Integrity Analyst: Nathan Arrieta MD Platelet mean volume (Bld) [Entitic vol] 10.8 fL Normal 7.0-12.0 [facility] Comment on above: Performed By: #### C MPX, CK, CALLI, CBCWD, LACTIC, MG #### [address] [place] [address] Integrity Analyst: Nathan Arrieta MD Platelets (Bld) [#/Vol] 280 10*3/uL Normal 130-450 [facility] Comment on above: Performed By: #### C MPX, CK, CALLI, CBCWD, LACTIC, MG #### [address] [place] [address] Integrity Analyst: Nathan Arrieta MD RBC (Bld) [#/Vol] 3.63 10*6/uL Normal 3.50-5.50 [facility] Comment on above: Performed By: #### C MPX, CK, CALLI, CBCWD, LACTIC, MG #### [place] [address] [facility] [place] [address] Integrity Analyst: Nathan Arrieta MD WBC (Bld) [#/Vol] 8.9 10*3/uL Normal 4.5-11.5 [facility] Comment on above: Performed By: #### C MPX, CK, CALLI, CBCWD, LACTIC, MG #### [place] [address] Integrity Analyst: Nathan Arrieta MD CBC with Diffon 04-28-2023 Abs. Basophil 0.03 k/uL Normal 0.00-0.20 [facility] Comment on above: Performed By: #### C MPX, CK, CALLI, CBCWD, LACTIC, MG #### [place] [address] Integrity Analyst: Nathan Arrieta MD Abs.Imm.Granulocyte 0.06 k/uL Normal 0.00-0.58 [facility] Comment on above: Performed By: #### C MPX, CK, CALLI, CBCWD, LACTIC, MG #### [place] [address] Integrity Analyst: Nathan Arrieta MD Abs.Neutrophil (Seg) 7.98 k/uL High 1.80-7.30 [facility] Comment on above: Performed By: #### C MPX, CK, CALLI, CBCWD, LACTIC, MG #### [place] [address] Integrity Analyst: Nathan Arrieta MD Basophils/100 WBC (Bld) 0 % Normal 0.0-2.0 [facility] Comment on above: Performed By: #### C MPX, CK, CALLI, CBCWD, LACTIC, MG #### [place] [address] Integrity Analyst: Nathan Arrieta MD Eosinophils (Bld) [#/Vol] 0.43 10*3/uL Normal 0.05-0.50 [facility] Comment on above: Performed By: #### C MPX, CK, CALLI, CBCWD, LACTIC, MG #### [place] [address] Integrity Analyst: Nathan Arrieta MD Eosinophils/100 WBC (Bld) 4 % Normal 0-6 [facility] Comment on above: Performed By: #### C MPX, CK, CALLI, CBCWD, LACTIC, MG #### [place] [address] Integrity Analyst: Nathan Arrieta MD Erythrocyte distribution width (RBC) [Ratio] 14.2 % Normal 11.5-15.0 [facility] Comment on above: Performed By: #### C MPX, CK, CALLI, CBCWD, LACTIC, MG #### [place] [address] Integrity Analyst: Nathan Arrieta MD Hematocrit (Bld) [Volume fraction] 30.8 % Low 34.0-48.0 [facility] Comment on above: Performed By: #### C MPX, CK, CALLI, CBCWD, LACTIC, MG #### [place] [address] Integrity Analyst: Nathan Arrieta MD Hemoglobin (Bld) [Mass/Vol] 9.7 g/dL Low 11.5-15.5 [facility] Comment on above: Performed By: #### C MPX, CK, CALLI, CBCWD, LACTIC, MG #### [place] [address] Integrity Analyst: Nathan Arrieta MD Immature granulocytes/100 WBC (Bld) 1 % Normal 0.0-5.0 [facility] Comment on above: Performed By: #### C MPX, CK, CALLI, CBCWD, LACTIC, MG #### [address] [place] [address] Integrity Analyst: Nathan Arrieta MD Lymphocytes (Bld) [#/Vol] 2.72 10*3/uL Normal 1.50-4.00 [facility] Comment on above: Performed By: #### C MPX, CK, CALLI, CBCWD, LACTIC, MG #### [address] [place] [address] Integrity Analyst: Nathan Arrieta MD Lymphocytes/100 WBC (Bld) 22 % Normal 20.0-42.0 [facility] Comment on above: Performed By: #### C MPX, CK, CALLI, CBCWD, LACTIC, MG #### [address] [place] [address] Integrity Analyst: Nathan Arrieta MD MCH (RBC) [Entitic mass] 26.9 pg Normal 26.0-35.0 [facility] Comment on above: Performed By: #### C MPX, CK, CALLI, CBCWD, LACTIC, MG #### [address] [place] [address] Integrity Analyst: Nathan Arrieta MD MCHC (RBC) [Mass/Vol] 31.5 g/dL Low 32.0-34.5 [facility] Comment on above: Performed By: #### C MPX, CK, CALLI, CBCWD, LACTIC, MG #### [address] [place] [address] Integrity Analyst: Nathan Arrieta MD MCV (RBC) [Entitic vol] 85.6 fL Normal 80.0-99.9 [facility] Comment on above: Performed By: #### C MPX, CK, CALLI, CBCWD, LACTIC, MG #### [place] [address] Integrity Analyst: Nathan Arrieta MD Monocytes (Bld) [#/Vol] 1.11 10*3/uL High 0.10-0.95 [facility] Comment on above: Performed By: #### C MPX, CK, CALLI, CBCWD, LACTIC, MG #### [address] [place] [address] Integrity Analyst: Nathan Arrieta MD Monocytes/100 WBC (Bld) 9 % Normal 2.0-12.0 [facility] Comment on above: Performed By: #### C MPX, CK, CALLI, CBCWD, LACTIC, MG #### [address] [place] [address] Integrity Analyst: Nathan Arrieta MD Neutrophil (Seg) 65 % Normal 43.0-80.0 [facility] Comment on above: Performed By: #### C MPX, CK, CALLI, CBCWD, LACTIC, MG #### [address] [place] [address] Integrity Analyst: Nathan Arrieta MD Platelet mean volume (Bld) [Entitic vol] 10.5 fL Normal 7.0-12.0 [facility] Comment on above: Performed By: #### C MPX, CK, CALLI, CBCWD, LACTIC, MG #### [address] [place] [address] Integrity Analyst: Nathan Arrieta MD Platelets (Bld) [#/Vol] 276 10*3/uL Normal 130-450 [facility] Comment on above: Performed By: #### C MPX, CK, CALLI, CBCWD, LACTIC, MG #### [address] [place] [address] Integrity Analyst: Nathan Arrieta MD RBC (Bld) [#/Vol] 3.60 10*6/uL Normal 3.50-5.50 [facility] Comment on above: Performed By: #### C MPX, CK, CALLI, CBCWD, LACTIC, MG #### [place] [id number] Integrity Analyst: Nathan Arrieta MD WBC (Bld) [#/Vol] 12.3 10*3/uL High 4.5-11.5 [facility] Comment on above: Performed By: #### C MPX, CK, CALLI, CBCWD, LACTIC, MG #### [place] [address] Integrity Analyst: Nathan Arrieta MD Comp Metabolic Pr/rfx MGon 1 - Albumin [Mass/Vol] 2.9 g/dL Low 3.5-5.2 [facility] Comment on above: Performed By: #### C MPX, CK, CALLI, CBCWD, LACTIC, MG #### [place] [address] Integrity Analyst: Nathan Arrieta MD Alkaline Phos 50 U/L Normal 35-104 [facility] Comment on above: Performed By: #### C MPX, CK, CALLI, CBCWD, LACTIC, MG #### [place] [address] Integrity Analyst: Nathan Arrieta MD ALT [Catalytic activity/Vol] 26 U/L Normal 0-32 [facility] Comment on above: Performed By: #### C MPX, CK, CALLI, CBCWD, LACTIC, MG #### [address] [address] Integrity Analyst: Nathan Arrieta MD Anion gap [Moles/Vol] 14 mmol/L Normal 7-16 [facility] Comment on above: Performed By: #### C MPX, CK, CALLI, CBCWD, LACTIC, MG #### [place] [address] Integrity Analyst: Nathan Arrieta MD AST [Catalytic activity/Vol] 40 U/L High 0-31 [facility] Comment on above: Performed By: #### C MPX, CK, CALLI, CBCWD, LACTIC, MG #### [place] [address] Integrity Analyst: Nathan Arrieta MD Bilirubin [Mass/Vol] 0.2 mg/dL Normal 0.0-1.2 [facility] Comment on above: Performed By: #### C MPX, CK, CALLI, CBCWD, LACTIC, MG #### [place] [address] Integrity Analyst: Nathan Arrieta MD Calcium [Mass/Vol] 7.9 mg/dL Low 8.6-10.2 [facility] Comment on above: Performed By: #### C MPX, CK, CALLI, CBCWD, LACTIC, MG #### [place] [address] Integrity Analyst: Nathan Arrieta MD Chloride [Moles/Vol] 107 mmol/L Normal 98-107 [facility] Comment on above: Performed By: #### C MPX, CK, CALLI, CBCWD, LACTIC, MG #### [place] [address] Integrity Analyst: Nathan Arrieta MD CO2 [Moles/Vol] 23 mmol/L Normal 22-29 [facility] Comment on above: Performed By: #### C MPX, CK, CALLI, CBCWD, LACTIC, MG #### [address] [place] [address] Integrity Analyst: Nathan Arrieta MD Creatinine [Mass/Vol] 0.5 mg/dL Normal 0.50-1.00 [facility] Comment on above: Performed By: #### C MPX, CK, CALLI, CBCWD, LACTIC, MG #### [address] [place] [address] Integrity Analyst: Nathan Arrieta MD GFR/1.73 sq M.predicted among non-blacks MDRD (S/P/Bld) [Vol rate/Area] mL/min/{1.73_m2} Normal >60 [facility] Comment on above: Result Comment: These results are not intended for use in patients <18 years of age. eGFR results are calculated without a race factor using the 2020 CKD-EPI equation. Careful clinical correlation is recommended, particularly when comparing to results calculated using previous equations. The CKD-EPI equation is less accurate in patients with extremes of muscle mass, extra-renal metabolism of creatine, excessive creatine ingestion, or following therapy that affects renal tubular secretion. Performed By: #### C MPX, CK, CALLI, CBCWD, LACTIC, MG #### [address] [place] [address] Integrity Analyst: Nathan Arrieta MD Glucose [Mass/Vol] 79 mg/dL Normal 74-99 [facility] Comment on above: Performed By: #### C MPX, CK, CALLI, CBCWD, LACTIC, MG #### [address] [place] [address] Integrity Analyst: Nathan Arrieta MD Potassium [Moles/Vol] 3.8 mmol/L Normal 3.5-5.0 [facility] Comment on above: Performed By: #### C MPX, CK, CALLI, CBCWD, LACTIC, MG #### [place] [address] Integrity Analyst: Nathan Arrieta MD Protein [Mass/Vol] 5.6 g/dL Low 6.4-8.3 [facility] Comment on above: Performed By: #### C MPX, CK, CALLI, CBCWD, LACTIC, MG #### [address] [place], [place] [id number] Integrity Analyst: Nathan Arrieta MD Sodium [Moles/Vol] 144 mmol/L Normal 132-146 [facility] Comment on above: Performed By: #### C MPX, CK, CALLI, CBCWD, LACTIC, MG #### [address] [place] [address] Integrity Analyst: Nathan Arrieta MD Urea nitrogen [Mass/Vol] 6 mg/dL Normal 6-20 [facility] Comment on above: Performed By: #### C MPX, CK, CALLI, CBCWD, LACTIC, MG #### [address] [place] [address] Integrity Analyst: Nathan Arrieta MD HCV Quant with Reflex to HCV Genotypeon 04-28-2023 HCV Qnt by NAAT (IU/mL) Not detected Normal [facility] Comment on above: Performed By: #### C MPX, CK, CALLI, CBCWD, LACTIC, MG #### [address] [place] [address] Integrity Analyst: Nathan Arrieta MD HCV Qnt by NAAT (log IU/mL) Not detected Normal [facility] Comment on above: Result Comment: (NOT E) Specimen submitted did not meet minimum volume required so it was diluted 1:3. The quantitative range at this dilution is 30 - 300,000,000 IU/mL (1.48 - 8.48 log IU/mL). A diagnostic interpretation should not be made from a Not Detected result for diluted specimens. Obtain a new, undiluted specimen and retest. Hepatitis C Virus (HCV) by Quantitative TMA result was less than 4,000 IU/mL (3.6 log IU/mL); therefore no further testing added. Performed By: #### C MPX, CK, CALLI, CBCWD, LACTIC, MG #### [address] [address] Integrity Analyst: Nathan Arrieta MD HCV Qnt by NAAT Interp Not detected Normal Not Detecte d [facility] Comment on above: Result Comment: (NOT E) INTERPRETIVE INFORMATION: HCV by Quantitative NAAT Normal range for this assay is Not Detected. The quantitative range of this assay is 10 - 100,000,000 IU/mL (1.0 - 8.0 log IU/mL). Lower limit of quantitation (LLoQ): 10 IU/mL (1.0 log IU/mL) LLoQ values do not apply to diluted specimens. A result of Not Detected does not rule out the presence of inhibitors in the patient specimen or hepatitis C virus RNA concentrations below the level of detection of the test. Care should be taken when interpreting any single viral load determination. This test should not be used for blood donor screening, associated re-entry protocols, or for screening Human Cell, Tissues and Cellular Tissue-Based Products (HCT/P). Performed By: [facility] [facility] [address] [place] [id number] [employer] Custodian: Aimee Bernardo MD, PhD CLIA Number: [id number] Performed By: #### C MPX, CK, CALLI, CBCWD, LACTIC, MG #### [address] [address] Integrity Analyst: Nathan Arrieta MD Magnesiumon 04-28-2023 Magnesium [Mass/Vol] 2.0 mg/dL Normal 1.6-2.6 [facility] Comment on above: Performed By: #### C MPX, CK, CALLI, CBCWD, LACTIC, MG #### [address] [address] Integrity Analyst: Nathan Arrieta MD Phosphorus, Inorg.on 023 Phosphorus, Inorg. 3.2 mg/dL Normal 2.5-4.5 [facility] Comment on above: Performed By: #### C MPX, CK, CALLI, CBCWD, LACTIC, MG #### [place] [address] Integrity Analyst: Nathan Arrieta MD CBC with Diffon 04-27-2023 Abs. Basophil 0.04 k/uL Normal 0.00-0.20 [facility] Comment on above: Performed By: #### C MPX, CK, CALLI, CBCWD, LACTIC, MG #### [place] [address] Integrity Analyst: Nathan Arrieta MD Abs.Imm.Granulocyte 0.07 k/uL Normal 0.00-0.58 [facility] Comment on above: Performed By: #### C MPX, CK, CALLI, CBCWD, LACTIC, MG #### [place] [address] Integrity Analyst: Nathan Arrieta MD Abs.Neutrophil (Seg) 10.96 k/uL High 1.80-7.30 [facility] Comment on above: Performed By: #### C MPX, CK, CALLI, CBCWD, LACTIC, MG #### [place] [address] Integrity Analyst: Nathan Arrieta MD Basophils/100 WBC (Bld) 0 % Normal 0.0-2.0 [facility] Comment on above: Performed By: #### C MPX, CK, CALLI, CBCWD, LACTIC, MG #### [place] [address] Integrity Analyst: Nathan Arrieta MD Eosinophils (Bld) [#/Vol] 0.46 10*3/uL Normal 0.05-0.50 [facility] Comment on above: Performed By: #### C MPX, CK, CALLI, CBCWD, LACTIC, MG #### [address] [place] [address] Integrity Analyst: Nathan Arrieta MD Eosinophils/100 WBC (Bld) 3 % Normal 0-6 [facility] Comment on above: Performed By: #### C MPX, CK, CALLI, CBCWD, LACTIC, MG #### [place] [address] Integrity Analyst: Nathan Arrieta MD Erythrocyte distribution width (RBC) [Ratio] 14.3 % Normal 11.5-15.0 [facility] Comment on above: Performed By: #### C MPX, CK, CALLI, CBCWD, LACTIC, MG #### [address] [place] [address] Integrity Analyst: Nathan Arrieta MD Hematocrit (Bld) [Volume fraction] 33.7 % Low 34.0-48.0 [facility] Comment on above: Performed By: #### C MPX, CK, CALLI, CBCWD, LACTIC, MG #### [address] [place] [address] Integrity Analyst: Nathan Arrieta MD Hemoglobin (Bld) [Mass/Vol] 10.4 g/dL Low 11.5-15.5 [facility] Comment on above: Performed By: #### C MPX, CK, CALLI, CBCWD, LACTIC, MG #### [address] [place] [address] Integrity Analyst: Nathan Arrieta MD Immature granulocytes/100 WBC (Bld) 1 % Normal 0.0-5.0 [facility] Comment on above: Performed By: #### C MPX, CK, CALLI, CBCWD, LACTIC, MG #### [address] [place] [address] Integrity Analyst: Nathan Arrieta MD Lymphocytes (Bld) [#/Vol] 2.05 10*3/uL Normal 1.50-4.00 [facility] Comment on above: Performed By: #### C MPX, CK, CALLI, CBCWD, LACTIC, MG #### [address] [place] [address] Integrity Analyst: Nathan Arrieta MD Lymphocytes/100 WBC (Bld) 14 % Low 20.0-42.0 [facility] Comment on above: Performed By: #### C MPX, CK, CALLI, CBCWD, LACTIC, MG #### [address] [place] [address] Integrity Analyst: Nathan Arrieta MD MCH (RBC) [Entitic mass] 26.7 pg Normal 26.0-35.0 [facility] Comment on above: Performed By: #### C MPX, CK, CALLI, CBCWD, LACTIC, MG #### [address] [place] [address] Integrity Analyst: Nathan Arrieta MD MCHC (RBC) [Mass/Vol] 30.9 g/dL Low 32.0-34.5 [facility] Comment on above: Performed By: #### C MPX, CK, CALLI, CBCWD, LACTIC, MG #### [address] [place] [address] Integrity Analyst: Nathan Arrieta MD MCV (RBC) [Entitic vol] 86.4 fL Normal 80.0-99.9 [facility] Comment on above: Performed By: #### C MPX, CK, CALLI, CBCWD, LACTIC, MG #### [address] [place] [address] Integrity Analyst: Nathan Arrieta MD Monocytes (Bld) [#/Vol] 1.11 10*3/uL High 0.10-0.95 [facility] Comment on above: Performed By: #### C MPX, CK, CALLI, CBCWD, LACTIC, MG #### [address] [place] [address] Integrity Analyst: Nathan Arrieta MD Monocytes/100 WBC (Bld) 8 % Normal 2.0-12.0 [facility] Comment on above: Performed By: #### C MPX, CK, CALLI, CBCWD, LACTIC, MG #### [place] [address] Integrity Analyst: Nathan Arrieta MD Neutrophil (Seg) 75 % Normal 43.0-80.0 [facility] Comment on above: Performed By: #### C MPX, CK, CALLI, CBCWD, LACTIC, MG #### [address] [place] [address] Integrity Analyst: Nathan Arrieta MD Platelet mean volume (Bld) [Entitic vol] 10.1 fL Normal 7.0-12.0 [facility] Comment on above: Performed By: #### C MPX, CK, CALLI, CBCWD, LACTIC, MG #### [address] [place] [address] Integrity Analyst: Nathan Arrieta MD Platelets (Bld) [#/Vol] 312 10*3/uL Normal 130-450 [facility] Comment on above: Performed By: #### C MPX, CK, CALLI, CBCWD, LACTIC, MG #### [address] [place] [address] Integrity Analyst: Nathan Arrieta MD RBC (Bld) [#/Vol] 3.90 10*6/uL Normal 3.50-5.50 [facility] Comment on above: Performed By: #### C MPX, CK, CALLI, CBCWD, LACTIC, MG #### [address] [id number] Integrity Analyst: Nathan Arrieta MD WBC (Bld) [#/Vol] 14.7 10*3/uL High 4.5-11.5 [facility] Comment on above: Performed By: #### C MPX, CK, CALLI, CBCWD, LACTIC, MG #### [place] [address] Integrity Analyst: Nathan Arrieta MD Comp Metabolic Pr/rfx MGon 1 06-28-2022 Albumin [Mass/Vol] 3.1 g/dL Low 3.5-5.2 [facility] Comment on above: Performed By: #### C MPX, CK, CALLI, CBCWD, LACTIC, MG #### [place] [address] Integrity Analyst: Nathan Arrieta MD Alkaline Phos 52 U/L Normal 35-104 [facility] Comment on above: Performed By: #### C MPX, CK, CALLI, CBCWD, LACTIC, MG #### [place] [address] Integrity Analyst: Nathan Arrieta MD ALT [Catalytic activity/Vol] 22 U/L Normal 0-32 [facility] Comment on above: Performed By: #### C MPX, CK, CALLI, CBCWD, LACTIC, MG #### [address] [id number] Integrity Analyst: Nathan Arrieta MD Anion gap [Moles/Vol] 13 mmol/L Normal 7-16 [facility] Comment on above: Performed By: #### C MPX, CK, CALLI, CBCWD, LACTIC, MG #### [address] [place] [address] Integrity Analyst: Nathan Arrieta MD AST [Catalytic activity/Vol] 26 U/L Normal 0-31 [facility] Comment on above: Performed By: #### C MPX, CK, CALLI, CBCWD, LACTIC, MG #### [place] [address] Integrity Analyst: Nathan Arrieta MD Bilirubin [Mass/Vol] 0.2 mg/dL Normal 0.0-1.2 [facility] Comment on above: Performed By: #### C MPX, CK, CALLI, CBCWD, LACTIC, MG #### [place] [address] Integrity Analyst: Nathan Arrieta MD Calcium [Mass/Vol] 8.1 mg/dL Low 8.6-10.2 [facility] Comment on above: Performed By: #### C MPX, CK, CALLI, CBCWD, LACTIC, MG #### [place] [address] Integrity Analyst: Nathan Arrieta MD Chloride [Moles/Vol] 108 mmol/L High 98-107 [facility] Comment on above: Performed By: #### C MPX, CK, CALLI, CBCWD, LACTIC, MG #### [address] [place] [address] Integrity Analyst: Nathan Arrieta MD CO2 [Moles/Vol] 20 mmol/L Low 22-29 [facility] Comment on above: Performed By: #### C MPX, CK, CALLI, CBCWD, LACTIC, MG #### [address] [place] [address] Integrity Analyst: Nathan Arrieta MD Creatinine [Mass/Vol] 0.7 mg/dL Normal 0.50-1.00 [facility] Comment on above: Performed By: #### C MPX, CK, CALLI, CBCWD, LACTIC, MG #### [address] [place] [address] Integrity Analyst: Nathan Arrieta MD GFR/1.73 sq M.predicted among non-blacks MDRD (S/P/Bld) [Vol rate/Area] mL/min/{1.73_m2} Normal >60 [facility] Comment on above: Result Comment: These results are not intended for use in patients <18 years of age. eGFR results are calculated without a race factor using the 2020 CKD-EPI equation. Careful clinical correlation is recommended, particularly when comparing to results calculated using previous equations. The CKD-EPI equation is less accurate in patients with extremes of muscle mass, extra-renal metabolism of creatine, excessive creatine ingestion, or following therapy that affects renal tubular secretion. Performed By: #### C MPX, CK, CALLI, CBCWD, LACTIC, MG #### [address] [place] [address] Integrity Analyst: Nathan Arrieta MD Glucose [Mass/Vol] 103 mg/dL High 74-99 [facility] Comment on above: Performed By: #### C MPX, CK, CALLI, CBCWD, LACTIC, MG #### [address] [place] [address] Integrity Analyst: Nathan Arrieta MD Potassium [Moles/Vol] 3.1 mmol/L Low 3.5-5.0 [facility] Comment on above: Performed By: #### C MPX, CK, CALLI, CBCWD, LACTIC, MG #### [place] [id number] Integrity Analyst: Nathan Arrieta MD Protein [Mass/Vol] 5.6 g/dL Low 6.4-8.3 [facility] Comment on above: Performed By: #### C MPX, CK, CALLI, CBCWD, LACTIC, MG #### [address] [place], [place] [id number] Integrity Analyst: Nathan Arrieta MD Sodium [Moles/Vol] 141 mmol/L Normal 132-146 [facility] Comment on above: Performed By: #### C MPX, CK, CALLI, CBCWD, LACTIC, MG #### [place] [address] Integrity Analyst: Nathan Arrieta MD Urea nitrogen [Mass/Vol] 6 mg/dL Normal 6-20 [facility] Comment on above: Performed By: #### C MPX, CK, CALLI, CBCWD, LACTIC, MG #### [address] [place] [id number] Integrity Analyst: Nathan Arrieta MD Creatine Kinaseon 04-27-2023 CK [Catalytic activity/Vol] 381 U/L High 20-180 [facility] Comment on above: Performed By: #### C MPX, CK, CALLI, CBCWD, LACTIC, MG #### [address] [place] [address] Integrity Analyst: Nathan Arrieta MD Glucose,Whole Bloodon 2022 Glucose [Mass/Vol] 93 mg/dL Normal 74-99 [facility] Glucose [Mass/Vol] 79 mg/dL Normal 74-99 [facility] HIV Ag/Abon 04-27-2023 HIV Ag/Ab Non-Reactive Normal NR [facility] Comment on above: Performed By: #### C MPX, CK, CALLI, CBCWD, LACTIC, MG #### [address] [place] [address] Integrity Analyst: Nathan Arrieta MD Hepatitis Acute Ashley 04-27 Hep A Ab,IgM Non-Reactive Normal [facility] Comment on above: Performed By: #### C MPX, CK, CALLI, CBCWD, LACTIC, MG #### [address] [place] [address] Integrity Analyst: Nathan Arrieta MD Hep B Core Ab,IgM Non-Reactive Normal [facility] Comment on above: Performed By: #### C MPX, CK, CALLI, CBCWD, LACTIC, MG #### [address] [place] [address] Integrity Analyst: Nathan Arrieta MD Hep B Surf Ag Non-Reactive Normal [facility] Comment on above: Performed By: #### C MPX, CK, CALLI, CBCWD, LACTIC, MG #### [address] [place] [address] Integrity Analyst: Nathan Arrieta MD Hep C Ab Reactive Abnormal [facility] Comment on above: Performed By: #### C MPX, CK, CALLI, CBCWD, LACTIC, MG #### [address] [place] [address] Integrity Analyst: Nathan Arrieta MD Magnesiumon 04-27-2023 Magnesium [Mass/Vol] 1.9 mg/dL Normal 1.6-2.6 [facility] Comment on above: Performed By: #### C MPX, CK, CALLI, CBCWD, LACTIC, MG #### [address] [place] [address] Integrity Analyst: Nathan Arrieta MD PTon 04-27-2023 INR Coag (PPP) [Relative time] 1.4 {INR} Normal [facility] Comment on above: Result Comment: Therapeutic Range: Moderate Anticoagulant Intensity: INR = 2.0-3.0 High Anticoagulant Intensity: INR = 2.5-3.5 Performed By: #### C MPX, CK, CALLI, CBCWD, LACTIC, MG #### [address] [place] [address] Integrity Analyst: Nathan Arrieta MD PT Coag (PPP) [Time] 15.1 s High 9.3-12.4 [facility] Comment on above: Performed By: #### C MPX, CK, CALLI, CBCWD, LACTIC, MG #### [address] [place] [address] Integrity Analyst: Nathan Arrieta MD Phosphorus, Inorg.on 023 Phosphorus, Inorg. 2.7 mg/dL Normal 2.5-4.5 [facility] Comment on above: Performed By: #### C MPX, CK, CLALI, CBCWD, LACTIC, MG #### [address] [place] [address] Integrity Analyst: Nathan Arrieta MD RPRon 04-27-2023 Reagin Ab RPR Ql (S) Non-Reactive Normal NR [facility] Comment on above: Performed By: #### C MPX, CK, CALLI, CBCWD, LACTIC, MG #### [address] [place] [address] Integrity Analyst: Nathan Arrieta MD Resp Viral Panelon 3 Adenovirus Not detected Normal [facility] Comment on above: Performed By: #### C MPX, CK, CALLI, CBCWD, LACTIC, MG #### [address] [place] [address] Integrity Analyst: Nathan Arrieta MD.parapertussis Not detected Normal [facility] Comment on above: Performed By: #### C MPX, CK, CALLI, CBCWD, LACTIC, MG #### [address] [place] [address] Integrity Analyst: Nathan Arrieta MD Bordetella pertussis Not detected Normal [facility] Comment on above: Performed By: #### C MPX, CK, CALLI, CBCWD, LACTIC, MG #### [address] [place] [address] Integrity Analyst: Nathan Arrieta MD Chlamyd.pneumoniae Not detected Normal [facility] Comment on above: Performed By: #### C MPX, CK, CALLI, CBCWD, LACTIC, MG #### [address] [place] [address] Integrity Analyst: Nathan Arrieta MD Coronavirus 229E Not detected Normal [facility] Comment on above: Performed By: #### C MPX, CK, CALLI, CBCWD, LACTIC, MG #### [address] [place] [address] Integrity Analyst: Nathan Arrieta MD Coronavirus HKU1 Not detected Normal [facility] Comment on above: Performed By: #### C MPX, CK, CALLI, CBCWD, LACTIC, MG #### [address] [place] [address] Integrity Analyst: Nathan Arrieta MD Coronavirus NL63 Not detected Normal [facility] Comment on above: Performed By: #### C MPX, CK, CALLI, CBCWD, LACTIC, MG #### [address] [place] [address] Integrity Analyst: Nathan Arrieta MD Coronavirus OC43 Not detected Normal [facility] Comment on above: Performed By: #### C MPX, CK, CALLI, CBCWD, LACTIC, MG #### [address] [place] [address] Integrity Analyst: Nathan Arrieta MD Human Metapneumo Not detected Normal [facility] Comment on above: Performed By: #### C MPX, CK, CALLI, CBCWD, LACTIC, MG #### [address] [place] [address] Integrity Analyst: Nathan Arrieta MD Influenza A Not detected [facility] Comment on above: Performed By: #### C MPX, CK, CALLI, CBCWD, LACTIC, MG #### [address] [place] [address] Integrity Analyst: Nathan Arrieta MD Influenza B Not detected Normal [facility] Comment on above: Performed By: #### C MPX, CK, CALLI, CBCWD, LACTIC, MG #### [address] [place] [address] Integrity Analyst: Nathan Arrieta MD Mycoplas.pneumoniae Not detected Normal [facility] Comment on above: Result Comment: Perf ormed by multiplexed nucleic acid assay. Performed By: #### C MPX, CK, CALLI, CBCWD, LACTIC, MG #### [address] [place] [address] Integrity Analyst: Nathan Arrieta MD Parainfluenza 1 Not detected Normal [facility] Comment on above: Performed By: #### C MPX, CK, CALLI, CBCWD, LACTIC, MG #### [address] [place] [address] Integrity Analyst: Nathan Arrieta MD Parainfluenza 2 Not detected Normal [facility] Comment on above: Performed By: #### C MPX, CK, CALLI, CBCWD, LACTIC, MG #### [address] [place] [address] Integrity Analyst: Nathan Arrieta MD Parainfluenza 3 Not detected Normal [facility] Comment on above: Performed By: #### C MPX, CK, CALLI, CBCWD, LACTIC, MG #### [address] [place] [address] Integrity Analyst: Nathan Arrieta MD Parainfluenza 4 Not detected Normal [facility] Comment on above: Performed By: #### C MPX, CK, CALLI, CBCWD, LACTIC, MG #### [address] [place] [address] Integrity Analyst: Nathan Arrieta MD Resp Syncytial Virus Not detected Normal [facility] Comment on above: Performed By: #### C MPX, CK, CALLI, CBCWD, LACTIC, MG #### [address] [place] [address] Integrity Analyst: Nathan Arrieta MD Rhino/Enterovirus Not detected Normal [facility] Comment on above: Performed By: #### C MPX, CK, CALLI, CBCWD, LACTIC, MG #### [address] [place] [address] Integrity Analyst: Nathan Arrieta MD SARS-CoV-2 (COVID-19) RNA DARIO+probe Ql (Unsp spec) Not detected Normal [facility] Comment on above: Performed By: #### C MPX, CK, CALLI, CBCWD, LACTIC, MG #### [address] [address] Integrity Analyst: Nathan Arrieta MD Source: .NASOPHARYNGEAL SWAB Normal [facility] Comment on above: Performed By: #### C MPX, CK, CALLI, CBCWD, LACTIC, MG #### [place] [address] Integrity Analyst: Nathan Arrieta MD Rule Out MRSAon 04-27-2023 Rule Out MRSA Specimen Description .NARES Culture POSITIVE FOR: METHICILLIN RESISTANT STAPHYLOCOCCUS AUREUS Report Status FINAL 04/27/2023 Normal [facility] Comment on above: Performed By: #### C MPX, CK, CALLI, CBCWD, LACTIC, MG #### [place] [address] Integrity Analyst: Nathan Arrieta MD B12/Folate Panelon 3 Cobalamin (Vitamin B12) [Mass/Vol] 1995 pg/mL High 211-946 [facility] Comment on above: Performed By: #### C MPX, CK, CALLI, CBCWD, LACTIC, MG #### [place] [address] Integrity Analyst: Nathan Arrieta MD Folic Acid 19.0 ng/mL Normal 4.8-24.2 [facility] Comment on above: Performed By: #### C MPX, CK, CALLI, CBCWD, LACTIC, MG #### [address] [id number] Integrity Analyst: Nathan Arrieta MD CBC with Diffon 04-26-2023 Abs. Basophil 0.05 k/uL Normal 0.00-0.20 [facility] Comment on above: Performed By: #### C MPX, CK, CALLI, CBCWD, LACTIC, MG #### [place] [address] Integrity Analyst: Nathan Arrieta MD Abs.Imm.Granulocyte 0.05 k/uL Normal 0.00-0.58 [facility] Comment on above: Performed By: #### C MPX, CK, CALLI, CBCWD, LACTIC, MG #### [place] [address] Integrity Analyst: Nathan Arrieta MD Abs.Neutrophil (Seg) 8.89 k/uL High 1.80-7.30 [facility] Comment on above: Performed By: #### C MPX, CK, CALLI, CBCWD, LACTIC, MG #### [place] [address] Integrity Analyst: Nathan Arrieta MD Basophils/100 WBC (Bld) 0 % Normal 0.0-2.0 [facility] Comment on above: Performed By: #### C MPX, CK, CALLI, CBCWD, LACTIC, MG #### [place] [address] Integrity Analyst: Nathan Arrieta MD Eosinophils (Bld) [#/Vol] 0.28 10*3/uL Normal 0.05-0.50 [facility] Comment on above: Performed By: #### C MPX, CK, CALLI, CBCWD, LACTIC, MG #### [place] [address] Integrity Analyst: Nathan Arrieta MD Eosinophils/100 WBC (Bld) 2 % Normal 0-6 [facility] Comment on above: Performed By: #### C MPX, CK, CALLI, CBCWD, LACTIC, MG #### [address] [address] Integrity Analyst: Nathan Arrieta MD Erythrocyte distribution width (RBC) [Ratio] 13.5 % Normal 11.5-15.0 [facility] Comment on above: Performed By: #### C MPX, CK, CALLI, CBCWD, LACTIC, MG #### [place] [address] Integrity Analyst: Nathan Arrieta MD Hematocrit (Bld) [Volume fraction] 33.6 % Low 34.0-48.0 [facility] Comment on above: Performed By: #### C MPX, CK, CALLI, CBCWD, LACTIC, MG #### [place] [address] Integrity Analyst: Nathan Arrieta MD Hemoglobin (Bld) [Mass/Vol] 10.6 g/dL Low 11.5-15.5 [facility] Comment on above: Performed By: #### C MPX, CK, CALLI, CBCWD, LACTIC, MG #### [place] [address] Integrity Analyst: Nathan Arrieta MD Immature granulocytes/100 WBC (Bld) 0 % Normal 0.0-5.0 [facility] Comment on above: Performed By: #### C MPX, CK, CALLI, CBCWD, LACTIC, MG #### [place] [address] Integrity Analyst: Nathan Arrieta MD Lymphocytes (Bld) [#/Vol] 2.77 10*3/uL Normal 1.50-4.00 [facility] Comment on above: Performed By: #### C MPX, CK, CALLI, CBCWD, LACTIC, MG #### [place] [address] Integrity Analyst: Nathan Arrieta MD Lymphocytes/100 WBC (Bld) 21 % Normal 20.0-42.0 [facility] Comment on above: Performed By: #### C MPX, CK, CALLI, CBCWD, LACTIC, MG #### [address] [place] [address] Integrity Analyst: Nathan Arrieta MD MCH (RBC) [Entitic mass] 26.8 pg Normal 26.0-35.0 [facility] Comment on above: Performed By: #### C MPX, CK, CALLI, CBCWD, LACTIC, MG #### [place] [address] Integrity Analyst: Nathan Arrieta MD MCHC (RBC) [Mass/Vol] 31.5 g/dL Low 32.0-34.5 [facility] Comment on above: Performed By: #### C MPX, CK, CALLI, CBCWD, LACTIC, MG #### [address] [place] [address] Integrity Analyst: Nathan Arrieta MD MCV (RBC) [Entitic vol] 84.8 fL Normal 80.0-99.9 [facility] Comment on above: Performed By: #### C MPX, CK, CALLI, CBCWD, LACTIC, MG #### [address] [place] [address] Integrity Analyst: Nathan Arrieta MD Monocytes (Bld) [#/Vol] 0.99 10*3/uL High 0.10-0.95 [facility] Comment on above: Performed By: #### C MPX, CK, CALLI, CBCWD, LACTIC, MG #### [place] [address] [facility] [place] [address] Integrity Analyst: Nathan Arrieta MD Monocytes/100 WBC (Bld) 8 % Normal 2.0-12.0 [facility] Comment on above: Performed By: #### C MPX, CK, CALLI, CBCWD, LACTIC, MG #### [address] [place] [address] Integrity Analyst: Nathan Arrieta MD Neutrophil (Seg) 68 % Normal 43.0-80.0 [facility] Comment on above: Performed By: #### C MPX, CK, CALLI, CBCWD, LACTIC, MG #### [address] [place] [address] Integrity Analyst: Nathan Arrieta MD Platelet mean volume (Bld) [Entitic vol] 10.4 fL Normal 7.0-12.0 [facility] Comment on above: Performed By: #### C MPX, CK, CALLI, CBCWD, LACTIC, MG #### [address] [place] [address] Integrity Analyst: Nathan Arrieta MD Platelets (Bld) [#/Vol] 314 10*3/uL Normal 130-450 [facility] Comment on above: Performed By: #### C MPX, CK, CALLI, CBCWD, LACTIC, MG #### [address] [place] [address] Integrity Analyst: Nathan Arrieta MD RBC (Bld) [#/Vol] 3.96 10*6/uL Normal 3.50-5.50 [facility] Comment on above: Performed By: #### C MPX, CK, CALLI, CBCWD, LACTIC, MG #### [address] [place] [address] Integrity Analyst: Nathan Arrieta MD WBC (Bld) [#/Vol] 13.0 10*3/uL High 4.5-11.5 [facility] Comment on above: Performed By: #### C MPX, CK, CALLI, CBCWD, LACTIC, MG #### [id number] [place] [address] Integrity Analyst: Nathan Arrieta MD CT HEAD WO CONTRASTon 2022 CT HEAD WO CONTRAST EXAMINATION: CT OF THE HEAD WITHOUT CONTRAST 04/26/2023 12:31 am TECHNIQUE: CT of the head was performed without the administration of intravenous contrast. Automated exposure control, iterative reconstruction, and/or weight based adjustment of the mA/kV was utilized to reduce the radiation dose to as low as reasonably achievable. COMPARISON: None. HISTORY: ORDERING SYSTEM PROVIDED HISTORY: Evaluate intracranial abnormality TECHNOLOGIST PROVIDED HISTORY: Has a code stroke or stroke alert been called?->No Reason for exam:->Evaluate intracranial abnormality Decision Support Exception - unselect if not a suspected or confirmed emergency medical condition->Emergency Medical Condition (MA) What reading provider will be dictating this exam?->CRC FINDINGS: BRAIN/VENTRICLES: There is no acute intracranial hemorrhage, mass effect or midline shift. No abnormal extra-axial fluid collection. The plascencia-white differentiation is maintained without evidence of an acute infarct. There is no evidence of hydrocephalus. ORBITS: The visualized portion of the orbits demonstrate no acute abnormality. SINUSES: Pansinus mucosal thickening. SOFT TISSUES/SKULL: No acute abnormality of the visualized skull or soft tissues. IMPRESSION: No acute intracranial abnormality. Pansinus mucosal thickening. Interpreted by: Jarocho Benton MD Signed by: Jarocho Benton MD 04/26/23 Final result Normal [facility] Comment on above: Order Comment: Has a code stroke or stroke alert been called?->NoReason for exam:->Evaluate intracranial abnormalityDecision Support Exception - unselect if not a suspected or confirmed emergency medical condition->Emergency Medical Condition (MA)What reading provider will be dictating this exam?->CRC Comp Metabolic Pr/rfx MGon 1 06-27-2022 Albumin [Mass/Vol] 3.4 g/dL Low 3.5-5.2 [facility] Comment on above: Performed By: #### C MPX, CK, CALLI, CBCWD, LACTIC, MG #### [id number] [place] [address] Integrity Analyst: Nathan Arrieta MD Alkaline Phos 57 U/L Normal 35-104 [facility] Comment on above: Performed By: #### C MPX, CK, CALLI, CBCWD, LACTIC, MG #### [facility] [address] [place], [place] [address]. [place] [address] Integrity Analyst: Nathan Arrieta MD ALT [Catalytic activity/Vol] 34 U/L High 0-32 [facility] Comment on above: Performed By: #### C MPX, CK, CALLI, CBCWD, LACTIC, MG #### [address] [place] [address] Integrity Analyst: Nathan Arrieta MD Anion gap [Moles/Vol] 17 mmol/L High 7-16 [facility] Comment on above: Performed By: #### C MPX, CK, CALLI, CBCWD, LACTIC, MG #### [address] [place] [address] Integrity Analyst: Nathan Arrieta MD AST [Catalytic activity/Vol] 54 U/L High 0-31 [facility] Comment on above: Performed By: #### C MPX, CK, CALLI, CBCWD, LACTIC, MG #### [address] [place] [address] Integrity Analyst: Nathan Arrieta MD Bilirubin [Mass/Vol] 0.3 mg/dL Normal 0.0-1.2 [facility] Comment on above: Performed By: #### C MPX, CK, CALLI, CBCWD, LACTIC, MG #### [address] [place] [address] Integrity Analyst: Nathan Arrieta MD Calcium [Mass/Vol] 8.1 mg/dL Low 8.6-10.2 [facility] Comment on above: Performed By: #### C MPX, CK, CALLI, CBCWD, LACTIC, MG #### [address] [place] [address] Integrity Analyst: Nathan Arrieta MD Chloride [Moles/Vol] 108 mmol/L High 98-107 [facility] Comment on above: Performed By: #### C MPX, CK, CALLI, CBCWD, LACTIC, MG #### [address] [place] [address] Integrity Analyst: Nathan Arrieta MD CO2 [Moles/Vol] 18 mmol/L Low 22-29 [facility] Comment on above: Performed By: #### C MPX, CK, CALLI, CBCWD, LACTIC, MG #### [address] [place] [address] Integrity Analyst: Nathan Arrieta MD Creatinine [Mass/Vol] 0.6 mg/dL Normal 0.50-1.00 [facility] Comment on above: Performed By: #### C MPX, CK, CALLI, CBCWD, LACTIC, MG #### [address] [place] [address] Integrity Analyst: Nathan Arrieta MD GFR/1.73 sq M.predicted among non-blacks MDRD (S/P/Bld) [Vol rate/Area] mL/min/{1.73_m2} Normal >60 [facility] Comment on above: Result Comment: These results are not intended for use in patients <18 years of age. eGFR results are calculated without a race factor using the 2020 CKD-EPI equation. Careful clinical correlation is recommended, particularly when comparing to results calculated using previous equations. The CKD-EPI equation is less accurate in patients with extremes of muscle mass, extra-renal metabolism of creatine, excessive creatine ingestion, or following therapy that affects renal tubular secretion. Performed By: #### C MPX, CK, CALLI, CBCWD, LACTIC, MG #### [address] [place] [address] Integrity Analyst: Nathan Arrieta MD Glucose [Mass/Vol] 72 mg/dL Low 74-99 [facility] Comment on above: Performed By: #### C MPX, CK, CALLI, CBCWD, LACTIC, MG #### [address] [place] [address] Integrity Analyst: Nathan Arrieta MD Potassium [Moles/Vol] 3.1 mmol/L Low 3.5-5.0 [facility] Comment on above: Performed By: #### C MPX, CK, CALLI, CBCWD, LACTIC, MG #### [address] [place] [address] Integrity Analyst: Nathan Arrieta MD Protein [Mass/Vol] 6.2 g/dL Low 6.4-8.3 [facility] Comment on above: Performed By: #### C MPX, CK, CALLI, CBCWD, LACTIC, MG #### [address] [place] [address] Integrity Analyst: Nathan Arrieta MD Sodium [Moles/Vol] 143 mmol/L Normal 132-146 [facility] Comment on above: Performed By: #### C MPX, CK, CALLI, CBCWD, LACTIC, MG #### [address] [place] [address] Integrity Analyst: Nathan Arrieta MD Urea nitrogen [Mass/Vol] 7 mg/dL Normal 6-20 [facility] Comment on above: Performed By: #### C MPX, CK, CALLI, CBCWD, LACTIC, MG #### [address] [place] [address] Integrity Analyst: Nathan Arrieta MD Creatine Kinaseon 04-26-2023 CK [Catalytic activity/Vol] 1372 U/L High 20-180 [facility] Comment on above: Performed By: #### C MPX, CK, CALLI, CBCWD, LACTIC, MG #### [address] [place] [address] Integrity Analyst: Nathan Arrieta MD Drug Scr, Abuse, Uron 2022 Amphetamine(s),Ur Positive Abnormal NEG [facility] Comment on above: Result Comment: Cuto ff: 1000 ng/mL High concentrations of ephedrine/pseudoephedrine or phenylpropanolamine may cause false positive results for amphetamine. Therefore, confirmatory testing for amphetamine should be considered if clinically indicated. Performed By: #### C MPX, CK, CALLI, CBCWD, LACTIC, MG #### [address] [place] [address] Integrity Analyst: Nathan Arrieta MD Barbiturate(s),Ur Negative Normal NEG [facility] Comment on above: Result Comment: Cuto ff: 200 ng/ml Performed By: #### C MPX, CK, CALLI, CBCWD, LACTIC, MG #### [address] [place] [address] Integrity Analyst: Nathan Arrieta MD Benzodiazepine(s) Positive Abnormal NEG [facility] Comment on above: Result Comment: Cuto ff: 200 ng/ml Performed By: #### C MPX, CK, CALLI, CBCWD, LACTIC, MG #### [address] [place] [address] Integrity Analyst: Nathan Arrieta MD Buprenorphrine, Ur Negative Normal NEG [facility] Comment on above: Result Comment: Cuto ff: 5 ng/ml Performed By: #### C MPX, CK, CALLI, CBCWD, LACTIC, MG #### [address] [place] [address] Integrity Analyst: Nathan Arrieta MD Cannabinoid(s),Ur Positive Abnormal NEG [facility] Comment on above: Result Comment: Cuto ff: 50 ng/ml Performed By: #### C MPX, CK, CALLI, CBCWD, LACTIC, MG #### [address] [place] [address] Integrity Analyst: Nathan Arrieta MD Cocaine Metabolite Positive Abnormal NEG [facility] Comment on above: Result Comment: Cuto ff: 300 ng/ml Performed By: #### C MPX, CK, CALLI, CBCWD, LACTIC, MG #### [address] [place] [address] Integrity Analyst: Nathan Arrieta MD Fentanyl, Urine Negative Normal NEG [facility] Comment on above: Result Comment: Cuto ff: 1.0 ng/ml Performed By: #### C MPX, CK, CALLI, CBCWD, LACTIC, MG #### [address] [place] [address] Integrity Analyst: Nathan Arrieta MD Interpretive Info These drug screen results are for medical purposes only and should not be Normal [facility] Comment on above: Result Comment: cons idered definitive or confirmed. The drug methodology concentration value must be greater than or equal to the cutoff to be reported as positive. Confirmtory testing orders and/or interpretive sceening questions can be directed to toxicology at [phone]. The absence of expected drug(s) and/or metabolite(s) may be due to inappropriate timing of specimen collection relative to drug administration, poor drug absorption, diluted/adulterated urine, or limitations of screening methodology. Performed By: #### C MPX, CK, CALLI, CBCWD, LACTIC, MG #### [address] [place] [address] Integrity Analyst: Nathan Arrieta MD Methadone Ql (U) Negative Normal NEG [facility] Comment on above: Result Comment: Cuto ff: 300 ng/ml Performed By: #### C MPX, CK, CALLI, CBCWD, LACTIC, MG #### [address] [place] [address] Integrity Analyst: Nathan Arrieta MD Opiate(s), Ur Negative Normal NEG [facility] Comment on above: Result Comment: Cuto ff: 300 ng/ml Note: The Opiate screen is not intended to detect Oxycodone. Performed By: #### C MPX, CK, CALLI, CBCWD, LACTIC, MG #### [address] [place] [address] Integrity Analyst: Nathan Arrieta MD Oxycodone, Urine Negative Normal NEG [facility] Comment on above: Result Comment: Cuto ff: 100 ng/ml Performed By: #### C MPX, CK, CALLI, CBCWD, LACTIC, MG #### [address] [place] [address] Integrity Analyst: Nathan Arrieta MD Phencyclidine, Ur Negative Normal NEG [facility] Comment on above: Result Comment: Cuto ff: 25 ng/ml Performed By: #### C MPX, CK, CALLI, CBCWD, LACTIC, MG #### [address] [place] [address] Integrity Analyst: Nathan Arrieta MD Glucose,Whole Bloodon 2022 Glucose [Mass/Vol] 83 mg/dL Normal 74-99 [facility] Glucose [Mass/Vol] 75 mg/dL Normal 74-99 [facility] Glucose [Mass/Vol] 76 mg/dL Normal 74-99 [facility] Glucose [Mass/Vol] 97 mg/dL Normal 74-99 [facility] Glucose [Mass/Vol] 139 mg/dL High 74-99 [facility] Glucose [Mass/Vol] 63 mg/dL Low 74-99 [facility] HCG Screen, Urineon 04-26-20 23 Beta HCG ( test) Ql (U) Negative Normal NEG [facility] Comment on above: Result Comment: Test results should always be evaluated with all available clinical data. If a urine sample is too dilute, it may not contain a new accounts representative urinary hCG concentration. If a negative result is obtained and is still suspected, a first morning sample should be obtained and tested. Performed By: #### H CGUB #### [address] [place] [address] Integrity Analyst: Nathan Arrieta MD Lactic Acidon 04-26-2023 Lactate [Moles/Vol] 0.8 mmol/L Normal 0.5-2.2 [facility] Comment on above: Performed By: #### C MPX, CK, CALLI, CBCWD, LACTIC, MG #### [address] [place] [address] Integrity Analyst: Nathan Arrieta MD Magnesiumon 04-26-2023 Magnesium [Mass/Vol] 2.2 mg/dL Normal 1.6-2.6 [facility] Comment on above: Performed By: #### C MPX, CK, CALLI, CBCWD, LACTIC, MG #### [address] [place] [address] Integrity Analyst: Nathan Arrieta MD Osmolalityon 04-26-2023 Osmolality [Osmolality] 290 mosm/kg Normal 285-310 [facility] Comment on above: Performed By: #### C MPX, CK, CALLI, CBCWD, LACTIC, MG #### [address] [place] [address] Integrity Analyst: Nathan Arrieta MD Phosphorus, Inorg.on 023 Phosphorus, Inorg. 3.1 mg/dL Normal 2.5-4.5 [facility] Comment on above: Performed By: #### C MPX, CK, CALLI, CBCWD, LACTIC, MG #### [address] [place] [address] Integrity Analyst: Nathan Arrieta MD Procalcitoninon 04-26-2023 Procalcitonin 0.05 ng/mL Normal 0.00-0.08 [facility] Comment on above: Performed By: #### C MPX, CK, CALLI, CBCWD, LACTIC, MG #### [place] [address] Integrity Analyst: Nathan Arrieta MD Thyroid Stim. Horm.on 2022 Thyroid Stim. Horm. 0.76 uIU/mL Normal 0.27-4.20 [facility] Comment on above: Performed By: #### C MPX, CK, CALLI, CBCWD, LACTIC, MG #### [place] [address] Integrity Analyst: Natahn Arrieta MD Thyroxine, Freeon 04-26-2023 Thyroxine, Free 1.6 ng/dL Normal 0.9-1.7 [facility] Comment on above: Performed By: #### C MPX, CK, CALLI, CBCWD, LACTIC, MG #### [address] [place] [address] Integrity Analyst: Nathan Arrieta MD XR CHEST PORTABLEon 04-26-20 23 XR CHEST PORTABLE EXAMINATION: ONE XRAY VIEW OF THE CHEST 04/25/2023 11:36 pm COMPARISON: 4:26 p.m. ET tube tip 2.0 cm from the alea. For HISTORY: ORDERING SYSTEM PROVIDED HISTORY: intubated TECHNOLOGIST PROVIDED HISTORY: Reason for exam:->intubated What reading provider will be dictating this exam?->CRC FINDINGS: The lungs are without acute focal process. There is no effusion or pneumothorax. The cardiomediastinal silhouette is without acute process. The osseous structures are without acute process. Enteric tube tip in the mid gastric body. IMPRESSION: ET tube tip 2.0 cm from the alea. Enteric tube tip in the mid gastric body. Interpreted by: Jarocho Benton MD Signed by: Jarocho Benton MD 04/25/23 Final result Normal [facility] Comment on above: Order Comment: Reaso n for exam:->intubatedWhat reading provider will be dictating this exam?->CRC CBC with Diffon 04-25-2023 Abs. Basophil 0 k/uL Normal 0.00-0.20 [facility] Comment on above: Performed By: #### C MPX, CK, CALLI, CBCWD, LACTIC, MG #### [address] [address] Integrity Analyst: Nathan Arrieta MD Abs.Neutrophil (Seg) 8.89 k/uL High 1.80-7.30 [facility] Comment on above: Performed By: #### C MPX, CK, CALLI, CBCWD, LACTIC, MG #### [address] [place] [address] Integrity Analyst: Nathan Arrieta MD Basophils/100 WBC (Bld) 0 % Normal 0.0-2.0 [facility] Comment on above: Performed By: #### C MPX, CK, CALLI, CBCWD, LACTIC, MG #### [address] [place] [address] Integrity Analyst: Nathan Arrieta MD Eosinophils (Bld) [#/Vol] 0.82 10*3/uL High 0.05-0.50 [facility] Comment on above: Performed By: #### C MPX, CK, CALLI, CBCWD, LACTIC, MG #### [address] [place] [address] Integrity Analyst: Nathan Arrieta MD Eosinophils/100 WBC (Bld) 5 % Normal 0-6 [facility] Comment on above: Performed By: #### C MPX, CK, CALLI, CBCWD, LACTIC, MG #### [place] [address] Integrity Analyst: Nathan Arrieta MD Lymphocytes (Bld) [#/Vol] 4.65 10*3/uL High 1.50-4.00 [facility] Comment on above: Performed By: #### C MPX, CK, CALLI, CBCWD, LACTIC, MG #### [place] [address] Integrity Analyst: Nathan Arrieta MD Lymphocytes/100 WBC (Bld) 30 % Normal 20.0-42.0 [facility] Comment on above: Performed By: #### C MPX, CK, CALLI, CBCWD, LACTIC, MG #### [place] [address] Integrity Analyst: Nathan Arrieta MD Monocytes (Bld) [#/Vol] 1.23 10*3/uL High 0.10-0.95 [facility] Comment on above: Performed By: #### C MPX, CK, CALLI, CBCWD, LACTIC, MG #### [place] [address] Integrity Analyst: Nathan Arrieta MD Monocytes/100 WBC (Bld) 8 % Normal 2.0-12.0 [facility] Comment on above: Performed By: #### C MPX, CK, CALLI, CBCWD, LACTIC, MG #### [place] [address] Integrity Analyst: Nahtan Arrieta MD Neutrophil (Seg) 57 % Normal 43.0-80.0 [facility] Comment on above: Performed By: #### C MPX, CK, CALLI, CBCWD, LACTIC, MG #### [address] [place] [address] Integrity Analyst: Nathan Arrieta MD RBC morphology finding Nom (Bld) 1+ Normal [facility] Comment on above: Result Comment: ANNA CELLS 1+ POLYCHROMASIA Performed By: #### C MPX, CK, CALLI, CBCWD, LACTIC, MG #### [place] [address] Integrity Analyst: Nathan Arrieta MD Erythrocyte distribution width (RBC) [Ratio] 13.3 % Normal 11.5-15.0 [facility] Comment on above: Performed By: #### C MPX, CK, CALLI, CBCWD, LACTIC, MG #### [address] [place] [address] Integrity Analyst: Nathan Arrieta MD Hematocrit (Bld) [Volume fraction] 34.9 % Normal 34.0-48.0 [facility] Comment on above: Performed By: #### C MPX, CK, CALLI, CBCWD, LACTIC, MG #### [address] [place] [address] Integrity Analyst: Nathan Arrieta MD Hemoglobin (Bld) [Mass/Vol] 11.2 g/dL Low 11.5-15.5 [facility] Comment on above: Performed By: #### C MPX, CK, CALLI, CBCWD, LACTIC, MG #### [place] [address] Integrity Analyst: Nathan Arrieta MD MCH (RBC) [Entitic mass] 26.5 pg Normal 26.0-35.0 [facility] Comment on above: Performed By: #### C MPX, CK, CALLI, CBCWD, LACTIC, MG #### [address] [place] [address] Integrity Analyst: Nathan Arrieta MD MCHC (RBC) [Mass/Vol] 32.1 g/dL Normal 32.0-34.5 [facility] Comment on above: Performed By: #### C MPX, CK, CALLI, CBCWD, LACTIC, MG #### [address] [place] [address] Integrity Analyst: Nathan Arrieta MD MCV (RBC) [Entitic vol] 82.5 fL Normal 80.0-99.9 [facility] Comment on above: Performed By: #### C MPX, CK, CALLI, CBCWD, LACTIC, MG #### [address] [place] [address] Integrity Analyst: Nathan Arrieta MD Platelet mean volume (Bld) [Entitic vol] 10.5 fL Normal 7.0-12.0 [facility] Comment on above: Performed By: #### C MPX, CK, CALLI, CBCWD, LACTIC, MG #### [address] [place] [address] Integrity Analyst: Nathan Arrieta MD Platelets (Bld) [#/Vol] 493 10*3/uL High 130-450 [facility] Comment on above: Performed By: #### C MPX, CK, CALLI, CBCWD, LACTIC, MG #### [address] [place] [address] Integrity Analyst: Nathan Arrieta MD RBC (Bld) [#/Vol] 4.23 10*6/uL Normal 3.50-5.50 [facility] Comment on above: Performed By: #### C MPX, CK, CALLI, CBCWD, LACTIC, MG #### [address], [place] [id number] Integrity Analyst: Nathan Arrieta MD WBC (Bld) [#/Vol] 15.6 10*3/uL High 4.5-11.5 [facility] Comment on above: Performed By: #### C MPX, CK, CALLI, CBCWD, LACTIC, MG #### [address] [place] [address] Integrity Analyst: Nathan Arrieta MD Comp Metabolic Profon 2022 Albumin [Mass/Vol] 4.4 g/dL Normal 3.5-5.2 [facility] Comment on above: Performed By: #### C MPX, CK, CALLI, CBCWD, LACTIC, MG #### [address] [address] Integrity Analyst: Nathan Arrieta MD Alkaline Phos 66 U/L Normal 35-104 [facility] Comment on above: Performed By: #### C MPX, CK, CALLI, CBCWD, LACTIC, MG #### [address] [place] [address] Integrity Analyst: Nathan Arrieta MD ALT [Catalytic activity/Vol] 45 U/L High 0-32 [facility] Comment on above: Performed By: #### C MPX, CK, CALLI, CBCWD, LACTIC, MG #### [address] [place] [address] Integrity Analyst: Nathan Arrieta MD Anion gap [Moles/Vol] 19 mmol/L High 7-16 [facility] Comment on above: Performed By: #### C MPX, CK, CALLI, CBCWD, LACTIC, MG #### [address] [id number] Integrity Analyst: Nathan Arrieta MD AST [Catalytic activity/Vol] 57 U/L High 0-31 [facility] Comment on above: Performed By: #### C MPX, CK, CALLI, CBCWD, LACTIC, MG #### [address] [address] Integrity Analyst: Nathan Arrieta MD Bilirubin [Mass/Vol] 0.5 mg/dL Normal 0.0-1.2 [facility] Comment on above: Performed By: #### C MPX, CK, CALLI, CBCWD, LACTIC, MG #### [place] [address] Integrity Analyst: Nathan Arrieta MD Calcium [Mass/Vol] 9.3 mg/dL Normal 8.6-10.2 [facility] Comment on above: Performed By: #### C MPX, CK, CALLI, CBCWD, LACTIC, MG #### [place] [address] Integrity Analyst: Nathan Arrieta MD Chloride [Moles/Vol] 102 mmol/L Normal 98-107 [facility] Comment on above: Performed By: #### C MPX, CK, CALLI, CBCWD, LACTIC, MG #### [place] [address] Integrity Analyst: Nathan Arrieta MD CO2 [Moles/Vol] 21 mmol/L Low 22-29 [facility] Comment on above: Performed By: #### C MPX, CK, CALLI, CBCWD, LACTIC, MG #### [address] [address] Integrity Analyst: Nathan Arrieta MD Creatinine [Mass/Vol] 0.8 mg/dL Normal 0.50-1.00 [facility] Comment on above: Performed By: #### C MPX, CK, CALLI, CBCWD, LACTIC, MG #### [place] [address] Integrity Analyst: Nathan Arrieta MD GFR/1.73 sq M.predicted among non-blacks MDRD (S/P/Bld) [Vol rate/Area] mL/min/{1.73_m2} Normal >60 [facility] Comment on above: Result Comment: These results are not intended for use in patients <18 years of age. eGFR results are calculated without a race factor using the 2020 CKD-EPI equation. Careful clinical correlation is recommended, particularly when comparing to results calculated using previous equations. The CKD-EPI equation is less accurate in patients with extremes of muscle mass, extra-renal metabolism of creatine, excessive creatine ingestion, or following therapy that affects renal tubular secretion. Performed By: #### C MPX, CK, CALLI, CBCWD, LACTIC, MG #### [address] [place] [address] Integrity Analyst: Nathan Arrieta MD Glucose [Mass/Vol] 141 mg/dL High 74-99 [facility] Comment on above: Performed By: #### C MPX, CK, CALLI, CBCWD, LACTIC, MG #### [address] [place] [address] Integrity Analyst: Nathan Arrieta MD Potassium [Moles/Vol] 3.3 mmol/L Low 3.5-5.0 [facility] Comment on above: Performed By: #### C MPX, CK, CALLI, CBCWD, LACTIC, MG #### [place] [address] Integrity Analyst: Nathan Arrieta MD Protein [Mass/Vol] 7.9 g/dL Normal 6.4-8.3 [facility] Comment on above: Performed By: #### C MPX, CK, CALLI, CBCWD, LACTIC, MG #### [address] [place], [place] [id number] Integrity Analyst: Nathan Arrieta MD Sodium [Moles/Vol] 142 mmol/L Normal 132-146 [facility] Comment on above: Performed By: #### C MPX, CK, CALLI, CBCWD, LACTIC, MG #### [address] [place] [address] Integrity Analyst: Nathan Arrieta MD Urea nitrogen [Mass/Vol] 13 mg/dL Normal 6-20 [facility] Comment on above: Performed By: #### C MPX, CK, CALLI, CBCWD, LACTIC, MG #### [address] [id number] Integrity Analyst: Nathan Arrieta MD Creatine Kinaseon 04-25-2023 CK [Catalytic activity/Vol] 866 U/L High 20-180 [facility] Comment on above: Performed By: #### C MPX, CK, CALLI, CBCWD, LACTIC, MG #### [place] [address] Integrity Analyst: Nathan Arrieta MD Glucose,Whole Bloodon 2022 Glucose [Mass/Vol] 96 mg/dL Normal 74-99 [facility] Tox Scr, Bld, EDon 3 Acetaminophen [Mass/Vol] ug/mL Low 10.0-30.0 [facility] Comment on above: Performed By: #### C MPX, CK, CALLI, CBCWD, LACTIC, MG #### [address] [place] [address] Integrity Analyst: Nathan Arrieta MD Ethanol [Mass/Vol] mg/dL Normal <10 [facility] Comment on above: Performed By: #### C MPX, CK, CALLI, CBCWD, LACTIC, MG #### [address] [place] [address] Integrity Analyst: Nathan Arrieta MD Salicylate <0.3 Normal 0.0-30.0 [facility] Comment on above: Performed By: #### C MPX, CK, CALLI, CBCWD, LACTIC, MG #### [address] [place] [address] Integrity Analyst: Nathan Arrieta MD Toxic Tricyclic Sc,Bl Negative Normal NEG [facility] Comment on above: Result Comment: Cuto ff: 300 ng/ml Performed By: #### C MPX, CK, CALLI, CBCWD, LACTIC, MG #### [address] [place] [address] Integrity Analyst: Nathan Arrieta MD Troponinon 04-25-2023 Troponin, High Sens 11 ng/L High 0-9 [facility] Comment on above: Result Comment: High Sensitivity Troponin values cannot be compared with other Troponin methodologies. Patients with high levels of Biotin oral intake (i.e >5mg/day) may have falsely decreased Troponin levels. Samples collected within 8 hours of biotin intake may require additional information for diagnosis. Performed By: #### T ROPI #### [address] [place] [address] Integrity Analyst: Nathan Arrieta MD Troponin, High Sens 11 ng/L High 0-9 [facility] Comment on above: Result Comment: High Sensitivity Troponin values cannot be compared with other Troponin methodologies. Patients with high levels of Biotin oral intake (i.e >5mg/day) may have falsely decreased Troponin levels. Samples collected within 8 hours of biotin intake may require additional information for diagnosis. Performed By: #### C MPX, CK, CALLI, CBCWD, LACTIC, MG #### [address] [place] [address] Integrity Analyst: Nathan Arrieta MD XR CHEST PORTABLEon 04-25-20 XR CHEST PORTABLE EXAMINATION: ONE XRAY VIEW OF THE CHEST 04/25/2023 4:35 pm COMPARISON: None. HISTORY: ORDERING SYSTEM PROVIDED HISTORY: Manic, tachycardia TECHNOLOGIST PROVIDED HISTORY: Reason for exam:->Manic, tachycardia What reading provider will be dictating this exam?->CRC FINDINGS: The lungs are clear, with no sign of any infiltrate or effusion. The heart is normal in size. The mediastinum is normal in appearance. The osseous structures are normal in appearance for the patient's age. IMPRESSION: Normal portable chest. Interpreted by: Etienne Nicholson MD Signed by: Etienne Nicholson MD 04/25/23 Final result Normal [facility] Comment on above: Order Comment: Reaso n for exam:->Mainic, tachycardiaWhat reading provider will be dictating this exam?->CRC Basophil percentageOrdered B y: Dr. Crisostomo on 11-04-2022 Basophil percentage TNP [facility] Comment on above: Test not performed No Panel InformationOrdered By: Dr. Crisostomo on 11-04-2022 Addendum Document Comment . [facility] Comment on above: The quantitative ran ge of this assay is 15 IU/mL to 100million IU/mL.Performed at: [address] [id number] Director: Coby De Los Santos MD, Phone: [phone] Serum or plasma hepatitis C virus RNA measurement by probe and target amplification mOrdered By: Dr. Crisostomo on 11-04-2022 HCV RNA DARIO+probe Qn Not detected . [facility] Basophil percentageOrdered B y: Dr. Fletcher on 10-27-2022 Basophil percentage 0 SEEN /hpf 0-5 [facility] Bilirubin [Mass/Vol] 0.40 mg/dL 0.20-1.00 [facility] Comment on above: For patients on eltr ombopag therapy, use of Dimension [place] TBIL is not recommended. Chloride [Moles/Vol] 107 mmol/L 98-107 [facility] Glucose [Mass/Vol] 87 mg/dL 74-106 [facility] Potassium [Moles/Vol] 3.5 mmol/L 3.5-5.1 [facility] Protein [Mass/Vol] 8.2 g/dL 6.4-8.2 [facility] Sodium [Moles/Vol] 139 mmol/L 136-145 [facility] Beta hCG serum qualOrdered B y: Dr. Fletcher on 10-27-2022 Beta HCG ( test) Ql Negative [facility] Bilirubin Test strip Ql (U)O rdered By: Dr. Fletcher on 10-27-2022 Bilirubin Ql (U) Negative Negative [facility] Ketones Test strip Ql (U)Ord ered By: Dr. Fletcher on 10-27-2022 Ketones Ql (U) 15 mg/dl Negative [facility] Laboratory - Chemistry and C hemistry - challengeOrdered By: Dr. Fletcher on 10-27-2022 CK [Catalytic activity/Vol] 1150 U/L 26-192 [facility] ALP [Catalytic activity/Vol] 62 U/L 45-117 [facility] ALT [Catalytic activity/Vol] 32 U/L 13-56 [facility] CO2 [Moles/Vol] 25.0 mmol/L 21.0-32.0 [facility] Globulin (S) [Mass/Vol] 4.0 g/dL 2.2-4.2 [facility] Urea nitrogen/Creatinine [Mass ratio] 19.1 mg/mg 10-20 [facility] Laboratory - Drug toxicology Ordered By: Dr. Fletcher on 10-27-2022 Amphetamines Ql (U) Positive <1000 ng/mL [facility] Benzodiazepines Ql (U) Negative < 200 ng/mL [facility] Cannabinoids Screen Ql (U) Negative < 50 ng/mL [facility] Cocaine Ql (U) Negative < 300 ng/mL [facility] Opiates Ql (U) Negative < 300 ng/mL [facility] Mucus LM Ql (Urine sed)Order ed By: Dr. Fletcher on 10-27-2022 Mucus Ql (Urine sed) 2+ /hpf [facility] Nitrite Test strip Ql (U)Ord ered By: Dr. Fletcher on 10-27-2022 Nitrite Ql (U) Negative Negative [facility] No Panel InformationOrdered By: Dr. Fletcher on 10-27-2022 MDMA (Ecstasy) Screen Positive < 500 ng/mL [facility] Urine Barbiturates Screen Negative < 200 ng/mL [facility] Urine Drug Screen Comment [facility] Comment on above: CONFIRMATORY TESTING FOR ALL POSITIVE URINE DRUG SCREENRESULTS WILL ONLY BE SENT OUT UPON PHYSICIAN ORDER. VISTA Urine Drug Screen methods provide only preliminaryanalytical test results. A more specific alternate chemicalmethod must be used in order to obtain a confirmedanalytical result. Gas chromatography/mass spectrometery(GC/MS) is the preferred confirmatory method. Clinicalconsideration and professional judgement should be appliedto any drug of abuse test result, particularly whenpreliminary positive results are used. URINE TCA TESTING MUST BE ORDERED SEPARATELY. USE TESTMNEMONIC: [facility] Urine Methadone Screen Negative < 300 ng/mL [facility] Estimated Creatinine Clearance Calc 71.82 ml/min [facility] Estimated GFR (MDRD) Amer 98 mL/min >60 [facility] Comment on above: GFR Calc Estimated GFR (MDRD) Non-Af Amer 81 mL/min >60 [facility] Comment on above: Non- GFR Calc Ethyl Alcohol Level 4.0 mg/dL [facility] Comment on above: The serum:whole bloo d ethanol ratio is approximately 1.14and varies slightly with hematocrit. Medical Alcohol reference interval and critical value innon-tolerant individuals; 50 - 100 Impairment 100 Intoxication 100 - 250 Severe Poisoning 250 - 400 Deep/possible fatal coma Protein Test strip Ql (U)Ord ered By: Dr. Fletcher on 10-27-2022 Protein Ql (U) 15 mg/dl Negative [facility] Serum or plasma albumin vanessa urement (mass/volume)Ordered By: Dr. Fletcher on 10-27-2022 Albumin [Mass/Vol] 4.2 g/dL 3.2-5.0 [facility] Serum or plasma albumin/glob ulin mass ratioOrdered By: Dr. Fletcher on 10-27-2022 Albumin/Globulin [Mass ratio] 1.0 {ratio} 0.9-2.4 [facility] Serum or plasma calcium vanessa urement (mass/volume)Ordered By: Dr. Fletcher on 10-27-2022 Calcium [Mass/Vol] 9.2 mg/dL 8.5-10.1 [facility] Serum or plasma creatinine m easurement (mass/volume)Ordered By: Dr. Fletcher on 10-27-2022 Creatinine [Mass/Vol] 0.84 mg/dL 0.55-1.02 [facility] Comment on above: The validity of the calculated GFR & GFRAA in patients over 70 years has not been determined. Clinical correlation is essential. Serum or plasma urea nitroge n measurement (mass/volume)Ordered By: Dr. Fletcher on 10-27-2022 Urea nitrogen [Mass/Vol] 16 mg/dL 7-18 [facility] Squamous epithelial cells de tection in urine sediment by light microscopyOrdered By: Dr. Fletcher on 10-27-2022 Epithelial cells.squamous LM Ql (Urine sed) 5-10 SEEN /hpf 5-10 [facility] Thin prep Papanicolaou smear with manual screeningOrdered By: Dr. Fletcher on 10-27-2022 Thin prep Papanicolaou smear with manual screening 47 U/L 15-37 [facility] Thin prep Papanicolaou smear with manual screening 7 5-15 [facility] Urine blood detectionOrdered By: Dr. Fletcher on 10-27-2022 RBC Ql (U) 150 /ul Negative [facility] RBC Ql (U) 10-25 SEEN /hpf 0-5 [facility] Urine clarityOrdered By: Dr. Fletcher on 10-27-2022 Clarity (U) Clear Clear [facility] Urine color determinationOrd ered By: Dr. Fletcher on 10-27-2022 Color (U) Yellow Yellow [facility] Urine glucose detectionOrder ed By: Dr. Fletcher on 10-27-2022 Glucose Ql (U) Normal mg/dl Normal [facility] Urine leukocyte esterase det ection by dipstickOrdered By: Dr. Fletcher on 10-27-2022 Leukocyte esterase Test strip Ql (U) Negative Negative [facility] Urine pHOrdered By: Dr. Sara osorio on 10-27-2022 pH (U) 5.0 [pH] 5.0 - 8.0 [facility] Urine phencyclidine (PCP) de tectionOrdered By: Dr. Fletcher on 10-27-2022 Phencyclidine Ql (U) Negative < 25 ng/mL [facility] Urine sediment bacteria coun t by microscopy (number/high power field)Ordered By: Dr. Fletcher on 10-27-2022 Bacteria LM.HPF (Urine sed) [#/Area] 2 /[HPF] None Seen [facility] Urine specific gravity measu rementOrdered By: Dr. Fletcher on 10-27-2022 Specific gravity (U) [Rel density] 1.030 1.002-1.030 [facility] Urobilinogen Auto test strip Ql (U)Ordered By: Dr. Fletcher on 10-27-2022 Urobilinogen Ql (U) Normal mg/dl Normal [facility] UA DIP, URINE (POC)on 2022 BILIRUBIN UA (POCT) Negative Negative [facility] CLARITY UA (POCT) Clear [facility] COLOR UA (POCT) Yellow [facility] GLUCOSE UA (POCT) Negative Negative mg/dL [facility] HEMOGLOBIN/BLOOD UA (POCT) Small Abnormal Negative [facility] KETONE UA (POCT) Negative Negative mg/dL [facility] LEUKOCYTES UA (POCT) Trace Abnormal Negative [facility] NITRITE UA (POCT) Negative Negative [facility] PH UA (POCT) 5.5 4.5 - 8.0 [facility] Protein Ql (U) Negative Negative mg/dL [facility] SPECIFIC GRAVITY UA (POCT) >=1.030 1.005 - 1.030 [facility] UROBILINOGEN UA (POCT) 0.2 E.U./dL Normal E.U./ dL [facility] Absolute lymphocyte countOrd ered By: ROBERTA BROWN on 06-09-2022 Lymphocytes Auto (Unsp spec) [#/Vol] 3.63 10*3/uL 0.83-4.51 [facility] Basophil percentageOrdered B y: ROBERTA BROWN on 06-09-2022 Basophil percentage TNP [facility] Comment on above: Test not performed Basophils/100 WBC (Bld) 0.9 % 0-1 [facility] Bilirubin [Mass/Vol] 0.40 mg/dL 0.20-1.00 [facility] Comment on above: For patients on eltr ombopag therapy, use of Dim[place] TBIL is not recommended. Chloride [Moles/Vol] 101 mmol/L 98-107 [facility] Cholesterol [Mass/Vol] 230 mg/dL <200 [facility] Comment on above: <200 mg/dL Desirable 200-240 mg/dL Borderline >240 mg/dL High Risk Eosinophils/100 WBC (Bld) 5.9 % 0-5 [facility] Glucose [Mass/Vol] 82 mg/dL 74-106 [facility] Neutrophils (Bld) [#/Vol] 4.0 10*3/uL 2.0-7.7 [facility] Neutrophils/100 WBC (Bld) 44.3 % 47-70 [facility] Potassium [Moles/Vol] 4.4 mmol/L 3.5-5.1 [facility] Protein [Mass/Vol] 8.5 g/dL 6.4-8.2 [facility] Sodium [Moles/Vol] 135 mmol/L 136-145 [facility] Triglyceride [Mass/Vol] 88 mg/dL <199 [facility] Comment on above: The drugs N-Acetylcy steine and Metamizole may falsely depress this assay.Serum Triglycerides Reference Interval Normal <150 mg/dL Borderline high 150 - 199 mg/dL High 200 - 499 mg/dL Very High > or = 500 mg/dL WBC (Bld) [#/Vol] 9.0 10*3/uL 4.4-11.0 [facility] Blood erythrocytes count (nu mber/volume)Ordered By: ROBERTA BROWN on 06-09-2022 RBC (Bld) [#/Vol] 5.00 10*6/uL 4.2-5.4 [facility] Blood hemoglobin measurement (mass/volume)Ordered By: ROBERTA BROWN on 06-09-2022 Hemoglobin (Bld) [Mass/Vol] 12.5 g/dL 12.0-15.0 [facility] Blood lymphocytes/100 leukoc ytesOrdered By: ROBERTA BROWN on 06-09-2022 Lymphocytes/100 WBC (Bld) 40.3 % 19-41 [facility] Blood monocytes/100 leukocyt esOrdered By: ROBERTA BROWN on 06-09-2022 Monocytes/100 WBC (Bld) 8.4 % 0-10 [facility] Blood platelet mean volumeOr dered By: ROBERTA BROWN on 06-09-2022 Platelet mean volume (Bld) [Entitic vol] 10.3 fL 6.2-12.0 [facility] Determination of erythrocyte mean corpuscular volume (MCV)Ordered By: ROBERTA BROWN on 06-09-2022 MCV (RBC) [Entitic vol] 82.2 fL 81-99 [facility] Hematocrit Auto (Bld) [Volum e fraction]Ordered By: ROBERTA BROWN on 06-09-2022 Hematocrit (Bld) [Volume fraction] 41.1 % 37-47 [facility] Laboratory - Chemistry and C hemistry - challengeOrdered By: ROBERTAFrank BROWN on 06-09-2022 ALP [Catalytic activity/Vol] 69 U/L 45-117 [facility] ALT [Catalytic activity/Vol] 21 U/L 13-56 [facility] CO2 [Moles/Vol] 25.0 mmol/L 21.0-32.0 [facility] Cobalamin (Vitamin B12) [Mass/Vol] 749 pg/mL 211-911 [facility] Free T4 [Mass/Vol] 1.08 ng/dL 0.76-1.46 [facility] Globulin (S) [Mass/Vol] 4.5 g/dL 2.2-4.2 [facility] Urea nitrogen/Creatinine [Mass ratio] 13.8 mg/mg 10-20 [facility] Laboratory - Hematology and Cell countsOrdered By: ROBERTA BROWN on 06-09-2022 Erythrocyte distribution width (RBC) [Entitic vol] 39.7 fL 35.1-43.9 [facility] Erythrocyte distribution width (RBC) [Ratio] 13.3 % 11.6-14.6 [facility] Immature granulocytes/100 WBC (Bld) 0.200 % 0.0-0.9 [facility] Comment on above: IG% - Immature Granu locytes (promyelocytes, myelocytes and metamyelocytes) > 1% indicates that a LEFT SHIFT is Present. MCH (RBC) [Entitic mass] 25.0 pg 27.0-32.0 [facility] Nucleated RBC/100 WBC (Bld) [Ratio] 0 % 0-5 [facility] MCHC Auto (RBC) [Mass/Vol]Or dered By: ROBERTA BROWN on 06-09-2022 MCHC (RBC) [Mass/Vol] 30.4 g/dL 32-36 [facility] No Panel InformationOrdered By: ROBERTA BROWN on 06-09-2022 Addendum Document Comment . [facility] Comment on above: The quantitative ran ge of this assay is 15 IU/mL to 100million IU/mL.Performed at: [employer] [id number] Director: Coby De Los Satnos MD, Phone: [phone] Estimated GFR (MDRD) Amer 104 mL/min >60 [facility] Comment on above: GFR Calc Estimated GFR (MDRD) Non-Af Amer 86 mL/min >60 [facility] Comment on above: Non- GFR Calc Thyroid Stimulating Hormone (TSH) 1.59 uIU/mL 0.358-3.74 [facility] Vitamin D 25-Hydroxy 18.1 ng/mL [facility] Comment on above: Vitamin D 25(OH) Sta tus Range Deficiency <20 ng/mL (50nmol/L) Insufficiency 20 - 30 ng/mL (50 - 75 nmol/L) Sufficiency 30 - 100 ng/mL (75 - 250 nmol/L) Toxicity >100 ng/mL (>250 nmol/L) Platelets bldOrdered By: ROBERT BROWN on 06-09-2022 Platelets (Bld) [#/Vol] 443 10*3/uL 150-450 [facility] Serum or plasma albumin vanessa urement (mass/volume)Ordered By: ROBERTA BROWN on 06-09-2022 Albumin [Mass/Vol] 4.0 g/dL 3.2-5.0 [facility] Serum or plasma albumin/glob ulin mass ratioOrdered By: ROBERTA BROWN on 06-09-2022 Albumin/Globulin [Mass ratio] 0.9 {ratio} 0.9-2.4 [facility] Serum or plasma calcium vanessa urement (mass/volume)Ordered By: ROBERTA BROWN on 06-09-2022 Calcium [Mass/Vol] 8.9 mg/dL 8.5-10.1 [facility] Serum or plasma cholesterol in HDL measurement (mass/volume)Ordered By: ROBERTA BROWN on 06-09-2022 Cholesterol in HDL [Mass/Vol] 86 mg/dL >40 [facility] Comment on above: The drugs N-Acetylcy steine and Metamizole may falsely depress this assay. Reference Range HDL <40 mg/dL Low HDL Cholesterol HDL >or= 60 mg/dL High HDL Cholesterol Serum or plasma cholesterol in VLDL measurement (mass/volume)Ordered By: ROBERTA BROWN on 06-09-2022 Cholesterol in VLDL [Mass/Vol] 18 mg/dL 5-40 [facility] Serum or plasma creatinine m easurement (mass/volume)Ordered By: ROBERTA BROWN on 06-09-2022 Creatinine [Mass/Vol] 0.80 mg/dL 0.55-1.02 [facility] Comment on above: The validity of the calculated GFR & GFRAA in patients over 70 years has not been determined. Clinical correlation is essential. Serum or plasma folate measu rement (mass/volume)Ordered By: ROBERTA BROWN on 06-09-2022 Folate [Mass/Vol] 17.30 ng/mL 3.1-55.4 [facility] Serum or plasma hepatitis C virus RNA measurement by probe and target amplification mOrdered By: ROBERTA BROWN on 06-09-2022 HCV RNA DARIO+probe Qn <15 IU/mL . [facility] Comment on above: HCV RNA detected Serum or plasma low density lipoprotein (LDL) cholesterol measurement (mass/volume)Ordered By: ROBERTA BROWN on 06-09-2022 Cholesterol in LDL [Mass/Vol] 126 mg/dL 0-130 [facility] Serum or plasma urea nitroge n measurement (mass/volume)Ordered By: ROBERTA BROWN on 06-09-2022 Urea nitrogen [Mass/Vol] 11 mg/dL 7-18 [facility] Thin prep Papanicolaou smear with manual screeningOrdered By: ROBERTA BROWN on 06-09-2022 Thin prep Papanicolaou smear with manual screening 19 U/L 15-37 [facility] Thin prep Papanicolaou smear with manual screening 9 5-15 [facility] Whole blood hemoglobin A1c/t otal hemoglobin ratio (mass fraction)Ordered By: ROBERTA BROWN on 06-09-2022 HbA1c (Bld) [Mass fraction] 5.6 % 3.8-5.6 [facility] Comment on above: Normal < 5.7 % Predi abetic 5.7 - 6.4 % Diabetic >or= 6.5 % Please note range changes. No Panel InformationOrdered By: Dr. Crisostomo on 04-07-2022 Miscellaneous Test See comment [facility] Comment on above: TEST RESULT LIMITSHC V FibroSure HCV FibroSURE Results: Fibrosis Score 0.06 0.00-0.21 Fibrosis Stage F0 - No fibrosis Necroinflammat Activity Score 0.25 High 0.00-0.17 Necroinflammat Activity Grade A0-A1 Analysis: Alpha 2-Macroglobulins, Qn 247 mg/dL 110-276 Haptoglobin 1 mg/dL 33-278 Apolipoprotein A-1 156 mg/dL 116-209 Bilirubin, Total 0.2 mg/dL 0.0-1.2 GGT 9 IU/L 0-60 ALT (SGPT) [id number] 55 High IU/L 0-40Interpretations: Quantitative results of 6 biochemical tests are analyzed using a computational algorithm to provide a quantitative surrogate marker (0.0-1.0) for liver fibrosis (METAVIR F0-F4) and for necroinflammatory activity (METAVIR A0-A3).Fibrosis Scoring: <=0.21 = Stage F0 - No fibrosis0.21 - 0.27 = Stage F0 - F10.27 - 0.31 = Stage F1 - Portal fibrosis0.31 - 0.48 = Stage F1 - F20.48 - 0.58 = Stage F2 - Bridging fibrosis with few septa0.58 - 0.72 = Stage F3 - Bridging fibrosis with many septa0.72 - 0.74 = Stage F3 - F4 >0.74 = Stage F4 - CirrhosisNecroinflamm ActivityScoring: <0.17 = Grade A0 - No Activity0.17 - 0.29 = Grade A0 - A10.29 - 0.36 = Grade A1 - Minimal activity0.36 - 0.52 = Grade A1 - A20.52 - 0.60 = Grade A2 - Moderate activity0.60 - 0.62 = Grade A2 - A3 >0.62 = Grade A3 - Severe activityLimitations:The negative predictive value of a Fibrotest score <0.31 (absence of clinically significant fibrosis) was 85% when compared to liver biopsy in 1,270 HCV infected patients with a 38% prevalence of significant liver fibrosis (F2, 3 or 4). The positive predictive value of a Fibro test score >0.48 (F2, 3, 4) was 61% in that same patient cohort. HCV FibroSURE is not recommended in patients with Gilbert Disease, acute hemolysis (e.g. HCV ribavirin therapy mediated hemolysis) acute hepatitis of the liver, extra-hepatic cholestasis, transplant patients, and/or renal insufficiency patients. Any of these clinical situations may lead to inaccurate quantitative predictions of fibrosis and necroinflammatory activity in the liver.Comment: This test was developed and its performance characteristics determined by [employer]. It has not been cleared or approved by the Food and Drug Administration. The FDA has determined that such clearance or approval is not necessary.For questions regarding this report please contact customer service at . TESTING PERFORMED AT [facility]. ORIGINAL REPORT ON FILE IN LAB CONTAINS ADDITIONAL TEST SITE INFORMATION. Basophil percentageOrdered B y: Dr. Crisostomo on 03-04-2022 WBC (Bld) [#/Vol] 8.7 10*3/uL 4.4-11.0 [facility] Blood erythrocytes count (nu mber/volume)Ordered By: Dr. Crisostomo on 03-04-2022 RBC (Bld) [#/Vol] 4.56 10*6/uL 4.2-5.4 [facility] Blood hemoglobin measurement (mass/volume)Ordered By: Dr. Crisostomo on 03-04-2022 Hemoglobin (Bld) [Mass/Vol] 11.6 g/dL 12.0-15.0 [facility] Blood platelet mean volumeOr dered By: Dr. Crisostomo on 03-04-2022 Platelet mean volume (Bld) [Entitic vol] 10.1 fL 6.2-12.0 [facility] Determination of erythrocyte mean corpuscular volume (MCV)Ordered By: Dr. Crisostomo on 03-04-2022 MCV (RBC) [Entitic vol] 82.7 fL 81-99 [facility] Hematocrit Auto (Bld) [Volum e fraction]Ordered By: Dr. Crisostomo on 03-04-2022 Hematocrit (Bld) [Volume fraction] 37.7 % 37-47 [facility] Laboratory - Hematology and Cell countsOrdered By: Dr. Crisostomo on 03-04-2022 Erythrocyte distribution width (RBC) [Entitic vol] 46.1 fL 35.1-43.9 [facility] Erythrocyte distribution width (RBC) [Ratio] 15.2 % 11.6-14.6 [facility] MCH (RBC) [Entitic mass] 25.4 pg 27.0-32.0 [facility] MCHC Auto (RBC) [Mass/Vol]Or dered By: Dr. Crisostomo on 03-04-2022 MCHC (RBC) [Mass/Vol] 30.8 g/dL 32-36 [facility] Platelets bldOrdered By: Dr. Crisostomo on 03-04-2022 Platelets (Bld) [#/Vol] 339 10*3/uL 150-450 [facility] Magnesiumon 09-17-2021 Magnesium [Mass/Vol] 1.5 mg/dL Low 1.6-2.3 [facility] Comment on above: Performed By: #### C K3, BMP3M, MG3 #### [facility] [address] [place] [address] Basic Metabolic Panelon - Anion gap [Moles/Vol] 3 mmol/L Normal 3-13 [facility] Comment on above: Performed By: #### Stevan K3, BMP3M, MG3 #### [facility] [address] [place] [address] CO2 [Moles/Vol] 28 mmol/L Normal 22-30 [facility] Comment on above: Performed By: #### Stevan K3, BMP3M, MG3 #### [facility] [address] [place] [address] Chloride [Moles/Vol] 103 mmol/L Normal 98-107 [facility] Comment on above: Performed By: #### C K3, BMP3M, MG3 #### [facility] [address] [place] [address] Potassium [Moles/Vol] 4.4 mmol/L Normal 3.5-5.1 [facility] Comment on above: Performed By: #### C K3, BMP3M, MG3 #### [facility] [address], [place] Sodium [Moles/Vol] 135 mmol/L Normal 135-145 [facility] Comment on above: Performed By: #### C K3, BMP3M, MG3 #### [facility] [address] [place] [address] Calcium [Mass/Vol] 8.2 mg/dL Low 8.4-10.4 [facility] Comment on above: Performed By: #### C K3, BMP3M, MG3 #### [facility] [address], [place] Glucose [Mass/Vol] 110 mg/dL High 70-100 [facility] Comment on above: Performed By: #### C K3, BMP3M, MG3 #### [facility] [address], [place] Urea nitrogen [Mass/Vol] 5 mg/dL Low 9-20 [facility] Comment on above: Performed By: #### C K3, BMP3M, MG3 #### [facility] [address], [place] Creatinine [Mass/Vol] 0.49 mg/dL Low 0.52-1.25 [facility] Comment on above: Performed By: #### C K3, BMP3M, MG3 #### [facility] [address], [place] eGFR OTHER > 90.0 Normal >60 [facility] Comment on above: Result Comment: KDIG O guidelines provide the following GFR categories: Stage GFR(ml/min/1.73 m2) Terms G1 >=90 Normal or high G2 60-89 Mildly decreased* G3a 45-59 Mildly to moderately decreased G3b 30-44 Moderately to severely decreased G4 15-29 Severely decreased G5 <15 Kidney failure *Relative to young adult level. In the absence of evidence of kidney damage, neither GFR category G1 nor G2 fulfill the criteria for CKD. The CKD-EPI equation is validated in individuals 18 years of age and older. Currently the best equation for estimating glomerular filtration rate (GFR) from serum creatinine in children is the Bedside Hyman equation. It is less accurate in patients with extremes of muscle mass, restriction of dietary protein, ingestion of creatine, extra-renal metabolism of creatinine, or treatment with medications that affect renal tubular creatinine secretion. Performed By: #### C K3, BMP3M, MG3 #### [address] GFR/1.73 sq M.predicted among blacks MDRD (S/P/Bld) [Vol rate/Area] mL/min/{1.73_m2} Normal >60 [facility] Comment on above: Performed By: #### C K3, BMP3M, MG3 #### [address] CKon 09-16-2021 CK [Catalytic activity/Vol] 161 U/L Normal 30-170 [facility] Comment on above: Performed By: #### C K3, BMP3M, MG3 #### [address] CR Chest PA/LATon 09-15-2021 CR Chest PA/LAT Patient Name: GENESIS BRADFORD Diagnostic Radiology ACCESSION EXAM DATE/TIME PROCEDURE ORDERING PROVIDER [id number] 09/15/2021 15:29 EDT CR Chest PA and LAT ANATOLY ORTEZ CHRISTINA CPT code 11178 Reason For Exam (CR Chest PA and LAT) sob Report CHEST X-RAY CLINICAL INDICATION: Shortness of breath Frontal and RPO views of the chest were obtained. COMPARISON: None FINDINGS: The cardiac silhouette is within normal limits. Low lung volumes are noted. No focal consolidation is seen within the lungs. There is no large pleural effusion or pneumothorax. The bony structures of the chest are unremarkable as visualized. IMPRESSION: Low lung volumes. No focal consolidation is seen. Report Dictated on Final Dictated: 09/15/2021 3:37 pm Dictating Physician: MD FANNY, AIMEE Hernandez Signed Date and Time: 09/15/2021 3:38 pm Signed by: MD ESCOBEDO JONATHAN R Transcribed Date and Time: 09/15/2021 3:37 Normal [facility] VL Venous Duplex US Upper Ex t Bilateralon 09-15-2021 VL Venous Duplex US Upper Ext Bilateral [facility]: [id number] ACCESSION EXAM DATE/TIME PROCEDURE ORDERING PROVIDER [id number] 09/15/2021 16:16 EDT VL Venous Duplex US ANATOLY ORTEZ, Upper Ext Bilateral CHIKA CPT code 45806 Reason For Exam (VL Venous Duplex US Upper Ext Bilateral) bilateral hand swelling Report [facility] -- Bilateral Upper Extremity Venous Duplex Report Patient Sanchez, : 1985 Study 09/15/2021 Name: Genesis Bae (36yrs) Date: Patient [id number] Age: 36 Account: [id number] ID: Gender: F Loc: 2705 BP: Ordering Physician: Chika Ortez [employer] Specialist: Loree Peraza RDMS, RVT Interpreting Physician: Lambert Traylor MD -- Location: [facility] -- Indications: Bilateral UE edema, including hands. -- Preliminary result was reported to Bre Ortez CNP , by Loree Peraza RVT.RDMO , on 09/15/2021 , at 04:25 PM. -- Conclusions 1. 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 2. There is no evidence of acute deep or superficial venous thrombosis noted in the veins of the left upper extremity. -- History: Risk factors: Polysubstance abuse. -- Study data: Bilateral upper extremity venous duplex. Grayscale 2D imaging, color Doppler imaging, and spectral Doppler analysis. Location: Bedside. Procedure: A vascular evaluation was performed Ultrasound Report with the patient in the supine position. Images were obtained using a [employer] USAs vascular ultrasound machine. -- Venous flow and imaging: + +------ -+--------+ -------+ -+ +Location +Overall+Thrombus+Prope rties +Comments + + +------ -+--------+ -------+ -+ +R internal +Patent +--------+Pulsatile flow; + + +jugular + + +spontaneous; + + + + + +compressible + + + +------ -+--------+ -------+ -+ +R innominate +Patent +--------+Pulsatile flow; + + + + + +spontaneous + + + +------ -+--------+ -------+ -+ +R subclavian +Patent +--------+Normal phasicity; + + + + + +spontaneous; normal+ + + + + +augmentation; + + + + + +compressible + + + +------ -+--------+ -------+ -+ +R axillary +Patent +--------+Normal phasicity; + + + + + +spontaneous; normal+ + + + + +augmentation; + + + + + +compressible + + + +------ -+--------+ -------+ -+ +R brachial +Patent +--------+Spontaneous; + + + + + +compressible + + + +------ -+--------+ -------+ -+ +R radial +Patent +--------+Compressible + + + +------ -+--------+ -------+ -+ +R ulnar +Patent +--------+Compressible + + + +------ -+--------+ -------+ -+ +R basilic +Patent +Chronic +Compressible +Localized + + + + + +chronic svt + + + + + +upper arm. + + +------ -+--------+ -------+ -+ +R cephalic +Patent +--------+Compressible + + + +------ -+--------+ -------+ -+ +L internal +Patent +--------+Normal phasicity; + + +jugular + + +spontaneous; + + + + + +compressible + + + +------ -+--------+ -------+ -+ +L innominate +Patent +--------+Pulsatile flow; + + + + + +spontaneous + + + +------ -+--------+ -------+ -+ +L subclavian +Patent +--------+Normal phasicity; + + + + + +spontaneous; normal+ + + + + +augmentation; + + + + + +compressible + + + +------ -+--------+ -------+ -+ +L axillary +Patent +--------+Normal phasicity; + + + + + +spontaneous; normal+ + + + + +augmentation; + + + + + +compressible + + + +------ -+--------+ -------+ -+ +L brachial +Patent +--------+Spontaneous; + + + + + +compressible + + + +------ -+--------+ -------+ -+ +L radial +Patent +------- (more content not included)... Normal [facility] Basic Metabolic Panelon 04-2 -2021 Anion gap [Moles/Vol] 2 mmol/L Low 3-13 [facility] Comment on above: Performed By: #### F ADA SY, HCGJAN, CUA2 #### [facility] [address] [address] Calcium [Mass/Vol] 7.7 mg/dL Low 8.4-10.4 [facility] Comment on above: Performed By: #### F LIZ SYA4, HCGUR, CUA2 #### [facility] [address], [place] CO2 [Moles/Vol] 25 mmol/L Normal 22-30 [facility] Comment on above: Performed By: #### F ENTU, DRGA4, HCGUR, CUA2 #### [facility] [address], [place] Glucose [Mass/Vol] 98 mg/dL Normal 70-100 [facility] Comment on above: Performed By: #### F ENTU, DRGA4, HCGUR, CUA2 #### [place], [place] Urea nitrogen [Mass/Vol] 8 mg/dL Low 9-20 [facility] Comment on above: Performed By: #### F ENTU, DRGA4, HCGUR, CUA2 #### [address] [place], [place] Creatinine [Mass/Vol] 0.51 mg/dL Low 0.52-1.25 [facility] Comment on above: Performed By: #### F ENTU, DRGA4, HCGUR, CUA2 #### [address] [place], [place] eGFR OTHER > 90.0 Normal >60 [facility] Comment on above: Result Comment: KDIG O guidelines provide the following GFR categories: Stage GFR(ml/min/1.73 m2) Terms G1 >=90 Normal or high G2 60-89 Mildly decreased* G3a 45-59 Mildly to moderately decreased G3b 30-44 Moderately to severely decreased G4 15-29 Severely decreased G5 <15 Kidney failure *Relative to young adult level. In the absence of evidence of kidney damage, neither GFR category G1 nor G2 fulfill the criteria for CKD. The CKD-EPI equation is validated in individuals 18 years of age and older. Currently the best equation for estimating glomerular filtration rate (GFR) from serum creatinine in children is the Bedside Hyman equation. It is less accurate in patients with extremes of muscle mass, restriction of dietary protein, ingestion of creatine, extra-renal metabolism of creatinine, or treatment with medications that affect renal tubular creatinine secretion. Performed By: #### F ENTU, DRGA4, HCGUR, CUA2 #### [address], [place] GFR/1.73 sq M.predicted among blacks MDRD (S/P/Bld) [Vol rate/Area] mL/min/{1.73_m2} Normal >60 [facility] Comment on above: Performed By: #### F ENTU, DRGA4, HCGUR, CUA2 #### [address], [place] Potassium [Moles/Vol] 3.1 mmol/L Low 3.5-5.1 [facility] Comment on above: Performed By: #### F ENTU, DRGA4, HCGUR, CUA2 #### [address], [place] Sodium [Moles/Vol] 135 mmol/L Normal 135-145 [facility] Comment on above: Performed By: #### F ENTU, DRGA4, HCGUR, CUA2 #### [address], [place] Chloride [Moles/Vol] 108 mmol/L High 98-107 [facility] Comment on above: Performed By: #### F ENTU, DRGA4, HCGUR, CUA2 #### [address], [place] Anion gap [Moles/Vol] 2 mmol/L Low 3 - 13 mmol/L [facility] Calcium [Mass/Vol] 7.7 mg/dL Low 8.4 - 10. 4 mg/dL [facility] Chloride [Moles/Vol] 108 mmol/L High 98 - 10 7 mmol/L [facility] CO2 [Moles/Vol] 25 mmol/L 22 - 30 mmol/L [facility] Creatinine [Mass/Vol] 0.51 mg/dL Low 0.52 - 1.25 mg/dL [facility] EGFR IF NonAfrican [place] >90.0 >60 mL/min [facility] Comment on above: KDIGO guidelines pro vide the following GFR categories: Stage GFR(ml/min/1.73 m2) Terms G1 >=90 Normal or high G2 60-89 Mildly decreased* G3a 45-59 Mildly to moderately decreased G3b 30-44 Moderately to severely decreased G4 15-29 Severely decreased G5 <15 Kidney failure *Relative to young adult level. In the absence of evidence of kidney damage, neither GFR category G1 nor G2 fulfill the criteria for CKD. The CKD-EPI equation is validated in individuals 18 years of age and older. Currently the best equation for estimating glomerular filtration rate (GFR) from serum creatinine in children is the Bedside Hyman equation. It is less accurate in patients with extremes of muscle mass, restriction of dietary protein, ingestion of creatine, extra-renal metabolism of creatinine, or treatment with medications that affect renal tubular creatinine secretion. GFR/1.73 sq M.predicted among blacks MDRD (S/P/Bld) [Vol rate/Area] mL/min/{1.73_m2} >60 mL/min [facility] Glucose [Mass/Vol] 98 mg/dL 70 - 100 mg/dL [facility] Potassium [Moles/Vol] 3.1 mmol/L Low 3.5 - 5.1 mmol/L [facility] Sodium [Moles/Vol] 135 mmol/L 135 - 145 mmol/L [facility] Urea nitrogen (BldV) [Mass/Vol] 8 mg/dL Low 9 - 20 mg/dL [facility] CBC auto differentialon 08-24 Absolute Baso # 0.0 10*3/uL 0.0 - 0.2 10*3/uL [facility] Absolute Neut # 5.1 10*3/uL 1.8 - 7.0 10*3/uL [facility] Basophils/100 WBC (Bld) 0.5 % 0.0 - 2.0 % [facility] Eosinophils (Bld) [#/Vol] 0.3 10*3/uL 0.0 - 0.5 10*3/uL [facility] Eosinophils/100 WBC (Bld) 3.6 % 1.0 - 6.0 % [facility] Granulocytes/100 WBC (Bld) 62.1 % 40.0 - 80.0 % [facility] Hematocrit (Bld) [Volume fraction] 28.9 % Low 35.0 - 47.0 % [facility] Hemoglobin.gastrointes tinal spec 1 Ql (Stl) 9.5 g/dL Low 11.7 - 16.0 g/dL [facility] Interpretation and review of laboratory results Abnormal [facility] Lymphocytes (Bld) [#/Vol] 1.8 10*3/uL 1.0 - 4.3 10*3/uL [facility] Lymphocytes/100 WBC (Bld) 21.7 % 20.0 - 40.0 % [facility] MCH (RBC) [Entitic mass] 26.7 pg 26.0 - 34.0 pg [facility] MCHC (RBC) [Mass/Vol] 32.8 % 32.0 - 36.0 % [facility] MCV (RBC) [Entitic vol] 81.4 fL 79.0 - 98.0 fL [facility] Monocytes (Bld) [#/Vol] 1.0 10*3/uL High 0.0 - 0.8 10*3/uL [facility] Monocytes/100 WBC (Bld) 12.1 % High 2.0 - 10.0 % [facility] Platelet distribution width (Bld) [Ratio] 15.3 % High 11.5 - 14.5 % [facility] Platelet mean volume (Bld) [Entitic vol] 8.4 fL 7.4 - 10.4 fL [facility] Platelets (Bld) [#/Vol] 257 10*3/uL 140 - 440 10*3/uL [facility] RBC (Bld) [#/Vol] 3.55 10*6/uL Low 3.80 - 5.2 0 10*6/uL [facility] WBC (Bld) [#/Vol] 8.3 10*3/uL 3.6 - 10.7 10*3/uL [facility] Test Performed by [id number] [place] [address] LAB [facility] EKG 12 Leadon 09-14-2021 [facility] Test Date: 2021-09-13 Pat Name: GENESIS BRADFORD Department: [facility] Room: 1740 Gender: F Cadd Drafter: HUAN : 1985 Requested By: JOÃO STACY Order Number: [id number] Reading MD: Madelin Calle Measurements Intervals [place] Rate: 124 P: 77 CA: 138 QRS: 81 QRSD: 74 T: 3 QT: 304 QTc: 439 Interpretive Statements Sinus tachycardia Left atrial enlargement Borderline T wave abnormalities Electronically Signed On 09-14-2021 5:34:27 EDT by Madelin Calle [facility] Madelin Calle MD - 09/14/2021 [facility] Test Date: 2021-09-13 Pat Name: GENESIS BRADFORD Department: [facility] Room: 1740 Gender: F Cadd Drafter: HUAN : 1985 Requested By: JOÃO STACY Order Number: [id number] Reading MD: Madelin Calle Measurements Intervals [place] Rate: 124 P: 77 CA: 138 QRS: 81 QRSD: 74 T: 3 QT: 304 QTc: 439 Interpretive Statements Sinus tachycardia Left atrial enlargement Borderline T wave abnormalities Electronically Signed On 09-14-2021 5:34:27 EDT by Madelin Calle [facility] Work Phone: EKG 12 LeadOrdered By: Best Calle on 09-14-2021 [facility] Work Phone: Hemogram w/ [employer]od[employer] 09-14 Abs Baso Cnt 0.0 10*3/uL Normal 0.0-0.2 [facility] Comment on above: Performed By: #### F ENTU, DRGA4, HCGUR, CUA2 #### [facility] [address] [place] [address] Abs Neutrophile Cnt 5.1 10*3/uL Normal 1.8-7.0 [facility] Comment on above: Performed By: #### F ENTU, DRGA4, HCGUR, CUA2 #### [facility] [address] [place] [address] Basophils/100 WBC (Bld) 0.5 % Normal 0.0-2.0 [facility] Comment on above: Performed By: #### F ENTU, DRGA4, HCGUR, CUA2 #### [facility] [address] [place] [address] Eosinophils (Bld) [#/Vol] 0.3 10*3/uL Normal 0.0-0.5 [facility] Comment on above: Performed By: #### F ENTU, DRGA4, HCGUR, CUA2 #### [facility] [address] [place] [address] Eosinophils/100 WBC (Bld) 3.6 % Normal 1.0-6.0 [facility] Comment on above: Performed By: #### F ENTU, DRGA4, HCGUR, CUA2 #### [place] [address], [place] Erythrocyte distribution width (RBC) [Ratio] 15.3 % High 11.5-14.5 [facility] Comment on above: Performed By: #### F ENTU, DRGA4, HCGUR, CUA2 #### [address], [place] Granulocytes/100 WBC (Bld) 62.1 % Normal 40.0-80.0 [facility] Comment on above: Performed By: #### F ENTU, DRGA4, HCGUR, CUA2 #### [address], [place] Hematocrit (Bld) [Volume fraction] 28.9 % Low 35.0-47.0 [facility] Comment on above: Performed By: #### F ENTU, DRGA4, HCGUR, CUA2 #### [address], [place] Hemoglobin (Bld) [Mass/Vol] 9.5 g/dL Low 11.7-16.0 [facility] Comment on above: Performed By: #### F ENTU, DRGA4, HCGUR, CUA2 #### [address], [place] Lymphocytes (Bld) [#/Vol] 1.8 10*3/uL Normal 1.0-4.3 [facility] Comment on above: Performed By: #### F ENTU, DRGA4, HCGUR, CUA2 #### [address] [place], [place] Lymphocytes/100 WBC (Bld) 21.7 % Normal 20.0-40.0 [facility] Comment on above: Performed By: #### F ENTU, DRGA4, HCGUR, CUA2 #### [address] [place], [place] MCH (RBC) [Entitic mass] 26.7 pg Normal 26.0-34.0 [facility] Comment on above: Performed By: #### F ENTU, DRGA4, HCGUR, CUA2 #### [facility] [address], [place] MCHC 32.8 % Normal 32.0-36.0 [facility] Comment on above: Performed By: #### F ENTU, DRGA4, HCGUR, CUA2 #### [address], [place] MCV (RBC) [Entitic vol] 81.4 fL Normal 79.0-98.0 [facility] Comment on above: Performed By: #### F ENTU, DRGA4, HCGUR, CUA2 #### [address], [place] Monocytes (Bld) [#/Vol] 1.0 10*3/uL High 0.0-0.8 [facility] Comment on above: Performed By: #### F ENTU, DRGA4, HCGUR, CUA2 #### [address], [place] Monocytes/100 WBC (Bld) 12.1 % High 2.0-10.0 [facility] Comment on above: Performed By: #### F ENTU, DRGA4, HCGUR, CUA2 #### [address] [place], [place] Platelet mean volume (Bld) [Entitic vol] 8.4 fL Normal 7.4-10.4 [facility] Comment on above: Performed By: #### F ENTU, DRGA4, HCGUR, CUA2 #### [address] [place], [place] Platelets (Bld) [#/Vol] 257 10*3/uL Normal 140-440 [facility] Comment on above: Performed By: #### F ENTU, DRGA4, HCGUR, CUA2 #### [address] [place], [place] RBC (Bld) [#/Vol] 3.55 10*6/uL Low 3.80-5.20 [facility] Comment on above: Performed By: #### F ENTU, DRGA4, HCGUR, CUA2 #### [facility] [address], [place] WBC (Bld) [#/Vol] 8.3 10*3/uL Normal 3.6-10.7 [facility] Comment on above: Performed By: #### F ENTU, DRGA4, HCGUR, CUA2 #### [facility] [address], [place] Hepatic Functionon 2 ALP [Catalytic activity/Vol] 55 U/L Normal 38-126 [facility] Comment on above: Performed By: #### F ENTU, DRGA4, HCGUR, CUA2 #### [place] [address], [place] ALT [Catalytic activity/Vol] 66 U/L High 0-34 [facility] Comment on above: Result Comment: The ALT test is performed by an updated assay method. Please note that the reference intervals have been changed and are now sex specific. Performed By: #### F ENTU, DRGA4, HCGUR, CUA2 #### [place] [address], [place] AST [Catalytic activity/Vol] 113 U/L High 15-46 [facility] Comment on above: Performed By: #### F ENTU, DRGA4, HCGUR, CUA2 #### [address], [place] Bilirubin [Mass/Vol] 0.5 mg/dL Normal 0.2-1.3 [facility] Comment on above: Performed By: #### F ENTU, DRGA4, HCGUR, CUA2 #### [address], [place] Protein [Mass/Vol] 5.6 g/dL Low 6.3-8.2 [facility] Comment on above: Performed By: #### F ENTU, DRGA4, HCGUR, CUA2 #### [address], [place] Bilirubin.indirect [Mass/Vol] 0.0 mg/dL Normal 0.0-0.3 [facility] Comment on above: Performed By: #### F ENTU, DRGA4, HCGUR, CUA2 #### [address] [place], [place] Albumin [Mass/Vol] 2.7 g/dL Low 3.5-5.0 [facility] Comment on above: Performed By: #### F ENTU, DRGA4, HCGUR, CUA2 #### [address] [place], [place] Hepatic function panelon Albumin [Mass/Vol] 2.7 g/dL Low 3.5 - 5.0 g/dL [facility] ALP (Bld) [Catalytic activity/Vol] 55 U/L 38 - 126 U/L [facility] ALT [Catalytic activity/Vol] 66 U/L High 0 - 34 U/L [facility] Comment on above: The ALT test is perf ormed by an updated assay method. Please note that the reference intervals have been changed and are now sex specific. AST [Catalytic activity/Vol] 113 U/L High 15 - 46 U/L [facility] Bilirubin [Mass/Vol] 0.5 mg/dL 0.2 - 1 .3 mg/dL [facility] Bilirubin.indirect [Mass/Vol] 0.0 mg/dL 0.0 - 0.3 mg/dL [facility] Free PSA/Total PSA [Mass fraction] 5.6 g/dL Low 6.3 - 8.2 g/dL [facility] Magnesiumon 09-14-2021 Magnesium [Mass/Vol] 1.4 mg/dL Low 1.6-2.3 [facility] Comment on above: Performed By: #### F ENTU, DRGA4, HCGUR, CUA2 #### [address] Interpretation and review of laboratory results Abnormal [facility] Magnesium [Mass/Vol] 1.4 mg/dL Low 1.6 - 2 .3 mg/dL [facility] Test Performed by [facility], [address] [place] [id number] [place] [address] LAB [facility] No Panel Informationon 09-14 Interpretation and review of laboratory results Abnormal [facility] Test Performed by [facility] [address] [address] [facility] Add On Lab Teston 09-13-2021 Add On Accepted [facility] Comment on above: Specimen available & acceptable for analysis. Test Performed by [address] [address] [facility] Add on test from HISon 09-13 Add on test from HIS Accepted Normal [facility] Comment on above: Result Comment: Spec imen available & acceptable for analysis. Performed By: #### F ENTU, DRGA4, HCGUR, CUA2 #### [address] Basic Metabolic Panelon 08-24 Calcium [Mass/Vol] 9.4 mg/dL Normal 8.4-10.4 [facility] Comment on above: Performed By: #### E TOH4, BMP3, LFT3, CK3, HEMDF #### [address] Glucose [Mass/Vol] 95 mg/dL Normal 70-100 [facility] Comment on above: Performed By: #### E TOH4, BMP3, LFT3, CK3, HEMDF #### [address] Anion gap [Moles/Vol] 12 mmol/L Normal 3-13 [facility] Comment on above: Performed By: #### E TOH4, BMP3, LFT3, CK3, HEMDF #### [address] CO2 [Moles/Vol] 22 mmol/L Normal 22-30 [facility] Comment on above: Performed By: #### E TOH4, BMP3, LFT3, CK3, HEMDF #### [address] Creatinine [Mass/Vol] 0.87 mg/dL Normal 0.52-1.25 [facility] Comment on above: Performed By: #### E TOH4, BMP3, LFT3, CK3, HEMDF #### [address] [place] [address] GFR/1.73 sq M.predicted among blacks MDRD (S/P/Bld) [Vol rate/Area] mL/min/{1.73_m2} Normal >60 [facility] Comment on above: Performed By: #### E TOH4, BMP3, LFT3, CK3, HEMDF #### [address] [place], [place] GFR/1.73 sq M.predicted among non-blacks MDRD (S/P/Bld) [Vol rate/Area] 85.0 mL/min/{1.73_m2} Normal >60 [facility] Comment on above: Result Comment: KDIG O guidelines provide the following GFR categories: Stage GFR(ml/min/1.73 m2) Terms G1 >=90 Normal or high G2 60-89 Mildly decreased* G3a 45-59 Mildly to moderately decreased G3b 30-44 Moderately to severely decreased G4 15-29 Severely decreased G5 <15 Kidney failure *Relative to young adult level. In the absence of evidence of kidney damage, neither GFR category G1 nor G2 fulfill the criteria for CKD. The CKD-EPI equation is validated in individuals 18 years of age and older. Currently the best equation for estimating glomerular filtration rate (GFR) from serum creatinine in children is the Bedside Hyman equation. It is less accurate in patients with extremes of muscle mass, restriction of dietary protein, ingestion of creatine, extra-renal metabolism of creatinine, or treatment with medications that affect renal tubular creatinine secretion. Performed By: #### E TOH4, BMP3, LFT3, CK3, HEMDF #### [address] Urea nitrogen [Mass/Vol] 26 mg/dL High 9-20 [facility] Comment on above: Performed By: #### E TOH4, BMP3, LFT3, CK3, HEMDF #### [address] Chloride [Moles/Vol] 97 mmol/L Low 98-107 [facility] Comment on above: Performed By: #### E TOH4, BMP3, LFT3, CK3, HEMDF #### [address] [place] [address] Potassium [Moles/Vol] 3.3 mmol/L Low 3.5-5.1 [facility] Comment on above: Performed By: #### E TOH4, BMP3, LFT3, CK3, HEMDF #### [facility] [address] [place] [address] Sodium [Moles/Vol] 131 mmol/L Low 135-145 [facility] Comment on above: Performed By: #### E TOH4, BMP3, LFT3, CK3, HEMDF #### [facility] [address] [place] [address] Anion gap [Moles/Vol] 12 mmol/L 3 - 13 mmol/L [facility] Calcium [Mass/Vol] 9.4 mg/dL 8.4 - 10. 4 mg/dL [facility] Chloride [Moles/Vol] 97 mmol/L Low 98 - 10 7 mmol/L [facility] CO2 [Moles/Vol] 22 mmol/L 22 - 30 mmol/L [facility] Creatinine [Mass/Vol] 0.87 mg/dL 0.52 - 1.25 mg/dL [facility] EGFR IF NonAfrican [place] 85.0 mL/min >[address] [facility] Comment on above: KDIGO guidelines pro vide the following GFR categories: Stage GFR(ml/min/1.73 m2) Terms G1 >=90 Normal or high G2 60-89 Mildly decreased* G3a 45-59 Mildly to moderately decreased G3b 30-44 Moderately to severely decreased G4 15-29 Severely decreased G5 <15 Kidney failure *Relative to young adult level. In the absence of evidence of kidney damage, neither GFR category G1 nor G2 fulfill the criteria for CKD. The CKD-EPI equation is validated in individuals 18 years of age and older. Currently the best equation for estimating glomerular filtration rate (GFR) from serum creatinine in children is the Bedside Hyman equation. It is less accurate in patients with extremes of muscle mass, restriction of dietary protein, ingestion of creatine, extra-renal metabolism of creatinine, or treatment with medications that affect renal tubular creatinine secretion. GFR/1.73 sq M.predicted among blacks MDRD (S/P/Bld) [Vol rate/Area] mL/min/{1.73_m2} >60 mL/min [facility] Glucose [Mass/Vol] 95 mg/dL 70 - 100 mg/dL [facility] Potassium [Moles/Vol] 3.3 mmol/L Low 3.5 - 5.1 mmol/L [facility] Sodium [Moles/Vol] 131 mmol/L Low 135 - 145 mmol/L [facility] Urea nitrogen (BldV) [Mass/Vol] 26 mg/dL High 9 - 20 mg/dL [facility] CBC with Auto Differentialon 09-13-2021 Absolute Baso # 0.0 10*3/uL 0.0 - 0.2 10*3/uL [facility] Absolute Neut # 11.0 10*3/uL High 1.8 - 7.0 10*3/uL [facility] Basophils/100 WBC (Bld) 0.3 % 0.0 - 2.0 % [facility] Eosinophils (Bld) [#/Vol] 0.1 10*3/uL 0.0 - 0.5 10*3/uL [facility] Eosinophils/100 WBC (Bld) 0.9 % Low 1.0 - 6.0 % [facility] Granulocytes/100 WBC (Bld) 72.3 % 40.0 - 80.0 % [facility] Hematocrit (Bld) [Volume fraction] 35.1 % 35.0 - 47.0 % [facility] Hemoglobin.gastrointes tinal spec 1 Ql (Stl) 11.8 g/dL 11.7 - 16.0 g/dL [facility] Interpretation and review of laboratory results Abnormal [facility] Lymphocytes (Bld) [#/Vol] 2.4 10*3/uL 1.0 - 4.3 10*3/uL [facility] Lymphocytes/100 WBC (Bld) 15.7 % Low 20.0 - 40.0 % [facility] MCH (RBC) [Entitic mass] 26.9 pg 26.0 - 34.0 pg [facility] MCHC (RBC) [Mass/Vol] 33.5 % 32.0 - 36.0 % [facility] MCV (RBC) [Entitic vol] 80.2 fL 79.0 - 98.0 fL [facility] Monocytes (Bld) [#/Vol] 1.6 10*3/uL High 0.0 - 0.8 10*3/uL [facility] Monocytes/100 WBC (Bld) 10.8 % High 2.0 - 10.0 % [facility] Platelet distribution width (Bld) [Ratio] 14.5 % 11.5 - 14.5 % [facility] Platelet mean volume (Bld) [Entitic vol] 8.6 fL 7.4 - 10.4 fL [facility] Platelets (Bld) [#/Vol] 340 10*3/uL 140 - 440 10*3/uL [facility] RBC (Bld) [#/Vol] 4.37 10*6/uL 3.80 - 5.2 0 10*6/uL [facility] WBC (Bld) [#/Vol] 15.2 10*3/uL High 3.6 - 10.7 10*3/uL [facility] Test Performed by [address] LAB [facility] CKon 09-13-2021 CK [Catalytic activity/Vol] 1414 U/L High 30-170 [facility] Comment on above: Performed By: #### F ENTU, DRGA4, HCGUR, CUA2 #### [address] [id number] CK [Catalytic activity/Vol] 1414 U/L High 30 - 170 U/L [facility] Interpretation and review of laboratory results Abnormal [facility] Test Performed by [id number] [place] [address] LAB [facility] CK [Catalytic activity/Vol] 2336 U/L High 30-170 [facility] Comment on above: Performed By: #### F ENTU, DRGA4, HCGUR, CUA2 #### [address] [id number] Interpretation and review of laboratory results Abnormal [facility] Test Performed by [id number] [place] [address] LAB [facility] CK [Catalytic activity/Vol] 2648 U/L High 30-170 [facility] Comment on above: Performed By: #### C K3 #### [address] [id number] CK [Catalytic activity/Vol] 2648 U/L High 30 - 170 U/L [facility] Interpretation and review of laboratory results Abnormal [facility] Test Performed by [facility], [address] [place] [id number] [facility] CK [Catalytic activity/Vol] 3545 U/L High 30-170 [facility] Comment on above: Performed By: #### F ENTU, DRGA4, HCGUR, CUA2 #### [place] [address] [place], [place] CK [Catalytic activity/Vol] 3545 U/L High 30 - 170 U/L [facility] Interpretation and review of laboratory results Abnormal [facility] Test Performed by [facility], [address] [place] [id number] [place] [address] LAB [facility] CK [Catalytic activity/Vol] 5725 U/L High 30-170 [facility] Comment on above: Performed By: #### F ENTU, DRGA4, HCGUR, CUA2 #### [place] [address] [place], [place] CK [Catalytic activity/Vol] 5725 U/L High 30 - 170 U/L [facility] Interpretation and review of laboratory results Abnormal [facility] Test Performed by [facility], [address] [place] [address] [facility] Complete Urinalysison 2021 Appearance (U) Clear Normal Clear [facility] Comment on above: Result Comment: . Performed By: #### F ENTU, DRGA4, HCGUR, CUA2 #### [place] [address] [place], [place] Bacteria LM.HPF (Urine sed) [#/Area] Negative Normal Negative [facility] Comment on above: Result Comment: . Performed By: #### F ENTU, DRGA4, HCGUR, CUA2 #### [place] [address] [place], [place] Bilirubin,Urine Negative Normal Negative [facility] Comment on above: Result Comment: . Performed By: #### F ENTU, DRGA4, HCGUR, CUA2 #### [place] [address] [place], [place] Cast, Hyaline Negative Normal Negative [facility] Comment on above: Result Comment: . Performed By: #### F ENTU, DRGA4, HCGUR, CUA2 #### [facility] [address], [place] Color (U) Yellow Normal Lt. Yellow [facility] Comment on above: Result Comment: . Performed By: #### F ENTU, DRGA4, HCGUR, CUA2 #### [facility] [address], [place] Glucose Ql (U) Normal Normal Normal (<70) [facility] Comment on above: Result Comment: . Performed By: #### F ENTU, DRGA4, HCGUR, CUA2 #### [facility] [address], [place] Ketone,Urine 80 mg/dL Abnormal Negative [facility] Comment on above: Result Comment: . Performed By: #### F ENTU, DRGA4, HCGUR, CUA2 #### [facility] [address], [place] Leukocytes,Urine Negative Normal Negative [facility] Comment on above: Result Comment: . Performed By: #### F ENTU, DRGA4, HCGUR, CUA2 #### [facility] [address], [place] Nitrites,Urine Negative Normal Negative [facility] Comment on above: Result Comment: . Performed By: #### F ENTU, DRGA4, HCGUR, CUA2 #### [facility] [address], [place] Occult Blood,Urine Negative Normal Negative [facility] Comment on above: Result Comment: . Performed By: #### F ENTU, DRGA4, HCGUR, CUA2 #### [facility] [address], [place] pH,Urine 5.5 Normal 5.0-8.0 [facility] Comment on above: Result Comment: . Performed By: #### F ENTU, DRGA4, HCGUR, CUA2 #### [facility] [address], [place] Protein (U) [Mass/Vol] 10 mg/dL Abnormal Negative [facility] Comment on above: Result Comment: . Performed By: #### F ENTU, DRGA4, HCGUR, CUA2 #### [place] [address] [place], [place] RBC, Urine 0 - 2 Normal 0-2 [facility] Comment on above: Result Comment: . Performed By: #### F ENTU, DRGA4, HCGUR, CUA2 #### [place] [address] [place], [place] Specific [place],Urine 1.019 Normal 1.005 - 1.030 [facility] Comment on above: Result Comment: . Performed By: #### F ENTU, DRGA4, HCGUR, CUA2 #### [place] [address] [place], [place] Squamous Epithelial 0 - 2 Normal 3-5 [facility] Comment on above: Result Comment: . Performed By: #### F ENTU, DRGA4, HCGUR, CUA2 #### [place] [address] [place], [place] Urobilinogen,Urine Normal Normal Normal (0-1) [facility] Comment on above: Result Comment: . Performed By: #### F ENTU, DRGA4, HCGUR, CUA2 #### [place] [address] [place], [place] WBC LM.HPF (Urine sed) [#/Area] Negative Normal 0-5 [facility] Comment on above: Result Comment: . Performed By: #### F ENTU, DRGA4, HCGUR, CUA2 #### [place] [address] [place], [place] Drugs of Abuseon 09-13-2021 Amphetamines, Ur Positive Normal [facility] Comment on above: Performed By: #### F ENTU, DRGA4, HCGUR, CUA2 #### [place] [address] [place], [place] Phencyclidine (PCP), Ur Negative Normal [facility] Comment on above: Result Comment: The expected value for all of the drugs listed above is Negative. The following drugs or drug groups have been screened for by Immunoassay at the following thresholds: Amphetamine class (1000 ng/mL), Barbiturates (200 ng/mL), Benzodiazepines (200 ng/mL), Cocaine (300 ng/mL), Methadone (300 ng/mL), Opiates (300 ng/mL), Oxycodone (100 ng/mL), and PCP (25 ng/mL). NOTE: These results are for medical treatment only. Analysis performed using non-forensic procedures. POSITIVE results are NOT confirmed by a more specific alternative method unless requested. If confirmation is needed, request confirmation under separate order. Performed By: #### F ENTU, DRGA4, HCGUR, CUA2 #### [place] [address] [place], [place] Opiates, Ur Negative Normal [facility] Comment on above: Performed By: #### F ENTU, DRGA4, HCGUR, CUA2 #### [place] [address] [place], [place] Cocaine, Ur Negative Normal [facility] Comment on above: Performed By: #### F ENTU, DRGA4, HCGUR, CUA2 #### [place] [address] [place], [place] Methadone, Ur Negative Normal [facility] Comment on above: Performed By: #### F ENTU, DRGA4, HCGUR, CUA2 #### [place] [address] [place], [place] Benzodiazepines, Ur Positive Normal [facility] Comment on above: Performed By: #### F ENTU, DRGA4, HCGUR, CUA2 #### [place] [address] [place], [place] Barbiturates, Ur Negative Normal [facility] Comment on above: Performed By: #### F ENTU, DRGA4, HCGUR, CUA2 #### [place] [address] [place], [place] Oxycodone/Oxymorphine, Ur Negative Normal [facility] Comment on above: Performed By: #### F ENTU, DRGA4, HCGUR, CUA2 #### [place] [address] [place], [place] ED Provider Noteon 2 ED Provider Note Found in hotel lobby on meth. W/ fentanyl in UDS. Sores on face and mouth from picking. - rabdo with ck of 5k - IVF down to ck of 2k - able to stand and walk - was sober for 5 months, went on 2 day 'prince' - wants help - spoke w/ detox Dr. Lim, will take if ck is < 2K page if ck < 2K Emergency Department Encounter Location: [facility] MED SURG Patient: Genesis Bradford : 1985 Date of evaluation: 09/12/2021 2:08 AM ED Provider: ERIN DAVID MD WORKUP, ED COURSE, PLAN Genesis Bradford was checked out to me by Jennifer Hurtado APRN. Please see his/her initial documentation for details of the patient's initial ED presentation, physical exam and completed studies. In brief, Genesis Bradford is a 36 y.o. female that presented to the emergency department intoxicated with methamphetamine, was tachycardic and having difficulties voiding with elevated CK and lethargic on exam. Patient wishes to go to detox however must be ambulatory, sober and with a CK less than 2000. Currently CK is pending I have reviewed and interpreted the currently available lab results and diagnostics from this visit: Vitals: 09/13/21 1503 09/13/21 1503 09/13/21 1737 09/13/21 1757 BP: (!) 99/52 (!) 143/80 136/80 Pulse: 133 133 124 120 Resp: 18 18 20 Temp: 96.2 ?F (35.7 ?C) 100 ?F (37.8 ?C) 98.8 ?F (37.1 ?C) TempSrc: Temporal Temporal Temporal Temporal SpO2: 96% 96% 96% 97% Results for orders placed or performed during the hospital encounter of 09/12/21 CBC with Auto Differential Result Value Ref Range WBC 15.2 (H) 3.6 - 10.7 10*3/uL RBC 4.37 3.80 - 5.20 10*6/uL Hemoglobin 11.8 11.7 - 16.0 g/dL Hematocrit 35.1 35.0 - 47.0 % MCV 80.2 79.0 - 98.0 fL MCH 26.9 26.0 - 34.0 pg MCHC 33.5 32.0 - 36.0 % RDW 14.5 11.5 - 14.5 % Platelets 340 140 - 440 10*3/uL MPV 8.6 7.4 - 10.4 fL Granulocytes % 72.3 40.0 - 80.0 % Lymphocyte % 15.7 (L) 20.0 - 40.0 % Monocytes 10.8 (H) 2.0 - 10.0 % Eosinophils 0.9 (L) 1.0 - 6.0 % Basophils 0.3 0.0 - 2.0 % Absolute Neut # 11.0 (H) 1.8 - 7.0 10*3/uL Absolute Lymph # 2.4 1.0 - 4.3 10*3/uL Absolute Dillon # 1.6 (H) 0.0 - 0.8 10*3/uL Absolute Eos # 0.1 0.0 - 0.5 10*3/uL Absolute Baso # 0.0 0.0 - 0.2 10*3/uL Basic Metabolic Panel Result Value Ref Range Sodium 131 (L) 135 - 145 mmol/L Potassium 3.3 (L) 3.5 - 5.1 mmol/L Chloride 97 (L) 98 - 107 mmol/L CO2 22 22 - 30 mmol/L Anion Gap 12 3 - 13 mmol/L Glucose 95 70 - 100 mg/dL BUN 26 (H) 9 - 20 mg/dL CREATININE 0.87 0.52 - 1.25 mg/dL eGFR >90.0 >60 mL/min EGFR IF NonAfrican [place] 85.0 >60 mL/min Calcium 9.4 8.4 - 10.4 mg/dL Hepatic Function Panel Result Value Ref Range Albumin,Serum 4.6 3.5 - 5.0 g/dL Total Protein 8.6 (H) 6.3 - 8.2 g/dL Total Bilirubin 1.1 0.2 - 1.3 mg/dL Bilirubin, Direct 0.0 0.0 - 0.3 mg/dL Alkaline Phosphatase 93 38 - 126 U/L ALT 108 (H) 0 - 34 U/L AST 253 (H) 15 - 46 U/L Urinalysis Result Value Ref Range Glucose, Ur Normal Normal (<70) mg/dL Total Protein, Urine 10 (A) Negative mg/dL Bilirubin Urine Negative Negative mg/dL Urobilinogen, Urine Normal Normal (0-1) mg/dL pH, Urine 5.5 5.0 - 8.0 NA Specific [place], Urine 1.019 1.005 - 1.030 NA Occult Blood,Urine Negative Negative mg/dL Ketones, Urine 80 (A) Negative mg/dL Nitrite, Urine Negative Negative NA LEUKOCYTES, UA Negative Negative Kw[place]/uL Appearance Clear Clear NA Color, Urine Yellow Lt. Yellow NA RBC, UA 0-2 0 - 2 /[HPF] WBC, UA Negative 0 - 5 /[HPF] Squam Epithel, UA 0-2 3 - 5 /[HPF] Bacteria, UA Negative Negative /[HPF] Hyaline Casts, UA Negative Negative /[LPF] FENTANYL, URINE Result Value Ref Range Fentanyl POSITIVE Negative NA , URINE Result Value Ref Range HCG Urine Negative Negative NA Ethanol Result Value Ref Range Ethanol Lvl <0.010 0.000 - 0.010 g/dL CK Result Value Ref Range Total CK 5,725 (H) 30 - 170 U/L CK Result Value Ref Range Total CK 3,545 (H) 30 - 170 U/L Add On Lab Test Result Value Ref Range Add On Accepted NA Urine Drug Screen Result Value Ref Range Amphetamines, urine Positive NA Barbiturates, Urine Negative NA Benzodiazepine Ur Qual Positive NA Cocaine Metabolites, Ur Negative NA Methadone, Urine Negative NA Opiates, Urine Negative NA Oxycodone Screen, Ur Negative NA PCP, Urine Negative NA CK Result Value Ref Range Total CK 2,648 (H) 30 - 170 U/L CK Result Value Ref Range Total CK 2,336 (H) 30 - 170 U/L CK Result Value Ref Range Total CK 1,414 (H) 30 - 170 U/L SARS-CoV-2 Antigen Result Value Ref Range SARS-CoV-2 Nucleocapsid Antigen Negative Negative NA No results found. ED Medication Orders (From admission, onward) Start Ordered Status Ordering Provider 09/15/210 09/13/21 180 traMADol (ULTRAM) tablet 100 mg EVERY 8 HOURS Followed by Linked Group Details Acknowledged SIMEON SMITH 09/14/21 18309/13/21 1806 traMADol (ULTRAM) tablet 100 mg EVERY (more content not included)... Normal [facility] ED Provider Note Emergency Department Encounter Location: [facility] EMERGENCY DEPT Patient: Genesis Bradford : 1985 Date of evaluation: 09/12/2021 ED Provider: Jennifer Hurtado, IRONER SOCK - SCANNER OPERATOR 0600 Genesis Bradford was checked out to me by Guillermo BANEGAS . Please see his/her initial documentation for details of the patient's initial ED presentation, physical exam and completed studies. In brief, Genesis Bradford is a 36 y.o. female that presented to the emergency department patient was signed out to me by the above nurse practitioner. The patient is intoxicated with methamphetamine was tachycardic and was having difficulties voiding when I assumed care of this patient. Currently there is a second liter of IV fluids running. The patient had to be straight cathed. Her CPK is elevated patient has denied verbally SI and HI however she has not slept for days. The patient remains lethargic. I contacted the admitting residents to come down and reevaluate the patient since she has been here for 12 hours. Her current CPK level is 2600. At 11:00. They came to the bedside the patient is still lethargic. She will open her eyes take a look around and appears to be still under the influence of her fentanyl, benzodiazepines and methamphetamine. The plan for this patient is to continue to evaluate her for sobriety and determine whether or not the patient wants to go to detox. Currently the detox physician states that she cannot come to his facility if she is not up and ambulatory. He also recommends sober reevaluation. I have reviewed and interpreted all of the currently available lab results and diagnostics from this visit: 1405 I have signed out Genesis Bradford's Emergency Department care to resident physician Dr. Erin David . We discussed the pertinent history, physical exam, completed/pending test results (if applicable) and current treatment plan. Please refer to his/her chart for the patients remaining Emergency Department course and final disposition. Results for orders placed or performed during the hospital encounter of 09/12/21 CBC with Auto Differential Result Value Ref Range WBC 15.2 (H) 3.6 - 10.7 10*3/uL RBC 4.37 3.80 - 5.20 10*6/uL Hemoglobin 11.8 11.7 - 16.0 g/dL Hematocrit 35.1 35.0 - 47.0 % MCV 80.2 79.0 - 98.0 fL MCH 26.9 26.0 - 34.0 pg MCHC 33.5 32.0 - 36.0 % RDW 14.5 11.5 - 14.5 % Platelets 340 140 - 440 10*3/uL MPV 8.6 7.4 - 10.4 fL Granulocytes % 72.3 40.0 - 80.0 % Lymphocyte % 15.7 (L) 20.0 - 40.0 % Monocytes 10.8 (H) 2.0 - 10.0 % Eosinophils 0.9 (L) 1.0 - 6.0 % Basophils 0.3 0.0 - 2.0 % Absolute Neut # 11.0 (H) 1.8 - 7.0 10*3/uL Absolute Lymph # 2.4 1.0 - 4.3 10*3/uL Absolute Dillon # 1.6 (H) 0.0 - 0.8 10*3/uL Absolute Eos # 0.1 0.0 - 0.5 10*3/uL Absolute Baso # 0.0 0.0 - 0.2 10*3/uL Basic Metabolic Panel Result Value Ref Range Sodium 131 (L) 135 - 145 mmol/L Potassium 3.3 (L) 3.5 - 5.1 mmol/L Chloride 97 (L) 98 - 107 mmol/L CO2 22 22 - 30 mmol/L Anion Gap 12 3 - 13 mmol/L Glucose 95 70 - 100 mg/dL BUN 26 (H) 9 - 20 mg/dL CREATININE 0.87 0.52 - 1.25 mg/dL eGFR >90.0 >60 mL/min EGFR IF NonAfrican [place] 85.0 >60 mL/min Calcium 9.4 8.4 - 10.4 mg/dL Hepatic Function Panel Result Value Ref Range Albumin,Serum 4.6 3.5 - 5.0 g/dL Total Protein 8.6 (H) 6.3 - 8.2 g/dL Total Bilirubin 1.1 0.2 - 1.3 mg/dL Bilirubin, Direct 0.0 0.0 - 0.3 mg/dL Alkaline Phosphatase 93 38 - 126 U/L ALT 108 (H) 0 - 34 U/L AST 253 (H) 15 - 46 U/L Urinalysis Result Value Ref Range Glucose, Ur Normal Normal (<70) mg/dL Total Protein, Urine 10 (A) Negative mg/dL Bilirubin Urine Negative Negative mg/dL Urobilinogen, Urine Normal Normal (0-1) mg/dL pH, Urine 5.5 5.0 - 8.0 NA Specific [place], Urine 1.019 1.005 - 1.030 NA Occult Blood,Urine Negative Negative mg/dL Ketones, Urine 80 (A) Negative mg/dL Nitrite, Urine Negative Negative NA LEUKOCYTES, UA Negative Negative [place]/uL Appearance Clear Clear NA Color, Urine Yellow Lt. Yellow NA RBC, UA 0-2 0 - 2 /[HPF] WBC, UA Negative 0 - 5 /[HPF] Squam Epithel, UA 0-2 3 - 5 /[HPF] Bacteria, UA Negative Negative /[HPF] Hyaline Casts, UA Negative Negative /[LPF] FENTANYL, URINE Result Value Ref Range Fentanyl POSITIVE Negative NA , URINE Result Value Ref Range HCG Urine Negative Negative NA Ethanol Result Value Ref Range Ethanol Lvl <0.010 0.000 - 0.010 g/dL CK Result Value Ref Range Total CK 5,725 (H) 30 - 170 U/L CK Result Value Ref Range Total CK 3,545 (H) 30 - 170 U/L Add On Lab Test Result Value Ref Range Add On Accepted NA Urine Drug Screen Result Value Ref Range Amphetamines, urine Positive NA Barbiturates, Urine Negative NA Benzodiazepine Ur Qual Positive NA Cocaine Metabolites, Ur Negative NA Methadone, Urine Negative NA Opiates, Urine Negative NA Oxycodone Screen, Ur Negative NA PCP, Urine Negative NA CK (more content not included)... Normal [facility] ED Provider Note Emergency Department Encounter [facility] MED SURG Patient: Genesis Bradford : 1985 Date of Evaluation: 09/12/2021 ED Supervising Physician: Madelin Calle MD I independently examined and evaluated Genesis Bradford. In brief, Genesis Bradford is a 36 y.o. female with a past medical history significant for and hepatitis C that presents to the emergency department for evaluation for hallucinations. Patient with erratic behavior and hallucinations. Patient however denies any suicidal homicidal ideation. She denies any pain. Focused exam: Blood pressure 136/80, pulse 120, temperature 98.8 ?F (37.1 ?C), temperature source Temporal, resp. rate 20, SpO2 97 %. Aoh-vjv-[id number] in no acute distress. Alert and oriented X 3. Lungs clear to auscultation bilaterally with no wheezes or crackles appreciated. Heart rate and rhythm regular with no murmurs. Abdomen soft nontender nondistended with positive bowel sounds. No edema appreciated on the lower extremities bilaterally. Brief ED course/MDM: ED Course as of 09/14/21 0535 ThuSep 13, [id number] SARS-CoV-2 Antigen: SARS-CoV-2 Nucleocapsid Antigen Negative [SC] 0149 Hepatic Function Panel(!): Albumin 4.6 Total Protein 8.6(!) Bilirubin 1.1 Bilirubin, Direct 0.0 Alk Phos 93 ALT 108(!) AST 253(!) [SC] 0149 Ethanol: Ethanol Lvl <0.010 [SC] 0149 Basic Metabolic Panel(!): Sodium 131(!) Potassium 3.3(!) Chloride 97(!) CO2 22 Anion Gap 12 GLUCOSE, FASTING,GF 95 BUN,BUNPL 26(!) Creatinine 0.87 eGFR >90.0 EGFR IF NonAfrican [place] 85.0 CALCIUM, SERUM, 984110 9.4 [SC] 0149 CBC with Auto Differential(!): WBC 15.2(!) RBC 4.37 Hemoglobin Quant 11.8 Hematocrit 35.1 MCV 80.2 MCH 26.9 MCHC 33.5 RDW 14.5 Platelet Count 340 MPV 8.6 [SC] 0149 BP: 116/78 [SC] [facility] Sep 14, 2021 0534 EKG with normal sinus rhythm with a rate of 89. Patient with no ST elevations or depressions concerning for STEMI. EKG with normal axis. Intervals within normal limits. No previous EKGs for comparison. EKG interpreted by myself in [facility]. [PK] ED Course User Index [PK] Madelin Calle MD [SC] João Stacy, IR[employer]ER SOCK - SCANNER OPERATOR Presentation is concerning for substance abuse side effects versus acute psychosis. Given presentation work-up in the emergency department with rhabdomyolysis with a CK in the 5000's, negative COVID test, drug screen positive for benzodiazepine, fentanyl and amphetamines, negative test, negative COVID test, leukocytosis with a white count of 15.2 which is likely reactive with a negative urinalysis. Patient with transaminitis with an AST of 253 and an ALT of 108 likely secondary to substance abuse, hypokalemia and hypomagnesemia appreciated, and EKG as noted above. Given these findings and patient's continued hallucinations we will plan admitting the patient for further medical management of rhabdomyolysis. Patient dialysis Elizabethkez not capable of making decisions for self at this time. Admitted in stable condition. All diagnostic, treatment, and disposition decisions were made by myself in conjunction with the Resident. I also supervised harris portions of any procedures performed by the Resident. For all further details of the patient's emergency department visit, please see their documentation. (Please note that portions of this note may have been completed with a voice recognition program. Efforts were made to edit the dictations but occasionally words are mis-transcribed.) Madelin Calle MD Acute Care [facility] Madelin Calle MD 09/14/21 0535 [facility] Patient: Genesis Bradford : 1985 Date of Evaluation: 09/12/2021 ED JONAH Provider: WARREN Underwood CNP EDcare was supervised by who independently examined and evaluated the patient. Please see their attestation note for further details. Chief Complaint Of methamphetamine abuse Chief Complaint Patient presents with ? Drug Problem Pt comes to ED via EMS, admits to use of fentanyl and Meth. Was picked up by Police, not currently combative but is displaying odd behavior. Pt states she has not slept in several days. Denies SI/HI. PUYALLUP I was wearing a N95 mask for the entirety of this encounter. Does this patient come from an ECF, SNF, Rehab, Mcfp or other Congregate setting: No (If yes to above patient needs a Covid-19 test) Genesis Bradford is a 36 y.o. female whopresents to the emergency department for evaluation and treatment patient was found in a hotel Police Department was called and they brought her into the emergency room. Patient upon arrival she denies any suicidal homicidal ideations although she is having some auditory or visual hallucinations. Patient does admit to me that she has used methamphetamines and fentanyl. Patient denies any chest pain or shortness of breath she speaking in full sentences able to swallow her own secretions. Patient is bizarre in her behavior she is moving around in the bed having flight of ideas and an audible speech. Patient has a history of hepatitis she has had numerous visits she states to me that she lives in [place] where her mother lives. Patient has a history of methamphetamine use as well as she smokes tobacco which she told me as well as drinks alcohol. Upon my examination she is in no distress she denies any chest pain abdominal pain nausea vomiting diarrheaconstipation fever chills or rashes. She denies any aggravating alleviating factors or any other injury or illness at this time. ROS: Review of Systems GENERAL: Denies weight change, fatigue, weakness, fever HEENT: Denies trauma, headache, dizziness, visual change, ear pain, hearing change, tinnitus, rhinorrhea CARDIAC: Denies hypertension, murmur, angina, palpations, dyspnea on exertion, edema RESPIRATORY: Denies shortness of breath, wheezing, cough, sputum, asthma, COPD GI: Denies nausea, vomiting, change in bowels, abdominal pain URINARY: Denies changes in frequency/urgency, hematuria, incontinence, flank pain MUSCULOSKELETAL: Denies weakness, pain, change in ROM, redness, swelling NEURO: Denies loss in sensation, tingling, tremors, weakness, fainting or seizures ENDO: Denies heat/cold intolerance, polyuria, polydipsia, or swelling around neck PSYCH: Denies changes in mood, anxiety, depression, tension, memory patient is having auditory hallucinations. Past History Past Medical History: Diagnosis Date ? Hepatitis C Past Surgical History: Procedure Laterality Date ? SECTION ? TONSILLECTOMY Social History Socioeconomic History ? Marital status: Single Spouse name: None ? Number of children: None ? Years of education: None ? Highest education level: None Occupational History ? None Tobacco Use ? Smoking status: Current Every Day Smoker ? Smokeless tobacco: None Substance and Sexual Activity ? Alcohol use: Not Currently ? Drug use: Yes Types: Methamphetamines (Crystal Meth) Comment: heroin ? Sexual activity: Yes Other Topics Concern ? None Social History Narrative ? None Social Determinants of Health Financial Resource Strain: ? Difficulty of Paying Living Expenses: Not on file Food Insecurity: ? Worried About Running Out of Food in the Last Year: Not on file ? Ran Out of Food in the Last Year: Not on file Transportation Needs: ? Lack of Transportation (Medical): Not on file ? Lack of Transportation (Non-Medical): Not on file Physical Activity: ? Days of Exercise per Week: Not on file ? Minutes of Exercise per Session: Not on file Stress: ? Feeling of Stress : Not on file Social Connections: ? Frequency of Communication with Friends and Family: Not on file ? Frequency of Social Gatherings with Friends and Family: Not on file ? Attends Mandaeism Services: Not on file ? Active Member of Clubs or Organizations: Not on file ? Attends Club or Organization Meetings: Not on file ? Marital Status: Not on file Intimate Partner Violence: ? Fear of Current or Ex-Partner: Not on file ? Emotionally Abused: Not on file ? Physically Abused: Not on file ? Sexually Abused: Not on file Housing Stability: ? Unable to Pay for Housing in the Last Year: Not on file ? Number of Places Lived in the Last Year: Not on file ? Unstable Housing in the Last Year: Not on file Medications/Allergies Previous Medications KETOROLAC (TORADOL) 10 MG TABLET Take 1 tablet by mouth every 6 hours as needed for Pain No Kn (more content not included)... Normal [facility] Ethanolon 09-13-2021 Ethanol Lvl <0.010 0.000 - 0.010 g/dL [facility] Comment on above: NOTE: This result is for medical treatment only. Analysis performed using non-forensic procedures. Ethanol Serum/Plasmaon 09-13 Ethanol-Serum/Plasma < 0.010 Normal 0.000-0.010 [facility] Comment on above: Result Comment: NOTE : This result is for medical treatment only. Analysis performed using non-forensic procedures. Performed By: #### F ENTU, DRGA4, HCGUR, CUA2 #### [address] [id number] FENTANYL, URINEon 09-13-2021 Fentanyl Positive Negative [facility] Comment on above: Fentanyl has been sc reened for by Immunoassay at a 1 ng/ml threshold. POSITIVE results are not confirmed by a more specific alternative method unless requested. If confirmation is needed, request confirmation under separate order. NOTE: These results are for medical treatment only. Analysis performed using non-forensic procedures. Test Performed by [facility], [facility] [place], [place] [id number] [place] [address] [facility] Fentanyl Screen, Urineon Fentanyl Screen, Urn Positive Normal Negative [facility] Comment on above: Result Comment: Fent anyl has been screened for by Immunoassay at a 1 ng/ml threshold. POSITIVE results are not confirmed by a more specific alternative method unless requested. If confirmation is needed, request confirmation under separate order. NOTE: These results are for medical treatment only. Analysis performed using non-forensic procedures. Performed By: #### F ENTU, DRGA4, HCGUR, CUA2 #### [place] [address] [address] [place], [place] HCG,Urine Qualon 09-13-2021 Beta HCG ( test) Ql (U) Negative Normal Negative [facility] Comment on above: Result Comment: Plea note: Very dilute urine specimens, as indicated by a low specific gravity, may not contain new accounts representative levels of hCG. If is still suspected, a first morning urine specimen should be collected 48 hours later and tested. is the most common reason for HCG in urine, although choriocarcinoma, hydatidiform mole, and certain nontropho- blastic malignancies also result in detectable urinary HCG levels. Sensitivity = 20mIU/mL. Performed By: #### F ENTU, DRGA4, HCGUR, CUA2 #### [place] [address] [place], [place] Hemogram w/ Autodiffon 09-13 Abs Baso Cnt 0.0 10*3/uL Normal 0.0-0.2 [facility] Comment on above: Performed By: #### F ENTU, DRGA4, HCGUR, CUA2 #### [address] Abs Neutrophile Cnt 11.0 10*3/uL High 1.8-7.0 [facility] Comment on above: Performed By: #### F ENTU, DRGA4, HCGUR, CUA2 #### [place] [address] [place], [place] Basophils/100 WBC (Bld) 0.3 % Normal 0.0-2.0 [facility] Comment on above: Performed By: #### F ENTU, DRGA4, HCGUR, CUA2 #### [place] [address] [place], [place] Eosinophils (Bld) [#/Vol] 0.1 10*3/uL Normal 0.0-0.5 [facility] Comment on above: Performed By: #### F ENTU, DRGA4, HCGUR, CUA2 #### [place] [address] [place], [place] Eosinophils/100 WBC (Bld) 0.9 % Low 1.0-6.0 [facility] Comment on above: Performed By: #### F ENTU, DRGA4, HCGUR, CUA2 #### [place] [address] [place], [place] Erythrocyte distribution width (RBC) [Ratio] 14.5 % Normal 11.5-14.5 [facility] Comment on above: Performed By: #### F ENTU, DRGA4, HCGUR, CUA2 #### [place] [address] [place], [place] Granulocytes/100 WBC (Bld) 72.3 % Normal 40.0-80.0 [facility] Comment on above: Performed By: #### F ENTU, DRGA4, HCGUR, CUA2 #### [place] [address] [place], [place] Hematocrit (Bld) [Volume fraction] 35.1 % Normal 35.0-47.0 [facility] Comment on above: Performed By: #### F ENTU, DRGA4, HCGUR, CUA2 #### [place] [address] [place], [place] Hemoglobin (Bld) [Mass/Vol] 11.8 g/dL Normal 11.7-16.0 [facility] Comment on above: Performed By: #### F ENTU, DRGA4, HCGUR, CUA2 #### [place] [address] [place], [place] Lymphocytes (Bld) [#/Vol] 2.4 10*3/uL Normal 1.0-4.3 [facility] Comment on above: Performed By: #### F ENTU, DRGA4, HCGUR, CUA2 #### [facility] [address], [place] Lymphocytes/100 WBC (Bld) 15.7 % Low 20.0-40.0 [facility] Comment on above: Performed By: #### F ENTU, DRGA4, HCGUR, CUA2 #### [facility] [address], [place] MCH (RBC) [Entitic mass] 26.9 pg Normal 26.0-34.0 [facility] Comment on above: Performed By: #### F ENTU, DRGA4, HCGUR, CUA2 #### [place] [address] [place], [place] MCHC 33.5 % Normal 32.0-36.0 [facility] Comment on above: Performed By: #### F ENTU, DRGA4, HCGUR, CUA2 #### [place] [address] [place], [place] MCV (RBC) [Entitic vol] 80.2 fL Normal 79.0-98.0 [facility] Comment on above: Performed By: #### F ENTU, DRGA4, HCGUR, CUA2 #### [place] [address] [place], [place] Monocytes (Bld) [#/Vol] 1.6 10*3/uL High 0.0-0.8 [facility] Comment on above: Performed By: #### F ENTU, DRGA4, HCGUR, CUA2 #### [place] [address] [place], [place] Monocytes/100 WBC (Bld) 10.8 % High 2.0-10.0 [facility] Comment on above: Performed By: #### F ENTU, DRGA4, HCGUR, CUA2 #### [place] [address] [place], [place] Platelet mean volume (Bld) [Entitic vol] 8.6 fL Normal 7.4-10.4 [facility] Comment on above: Performed By: #### F ENTU, DRGA4, HCGUR, CUA2 #### [place] [address] [place], [place] Platelets (Bld) [#/Vol] 340 10*3/uL Normal 140-440 [facility] Comment on above: Performed By: #### F ENTU, DRGA4, HCGUR, CUA2 #### [place] [address] [place], [place] RBC (Bld) [#/Vol] 4.37 10*6/uL Normal 3.80-5.20 [facility] Comment on above: Performed By: #### F ENTU, DRGA4, HCGUR, CUA2 #### [place] [address] [place], [place] WBC (Bld) [#/Vol] 15.2 10*3/uL High 3.6-10.7 [facility] Comment on above: Performed By: #### F ENTU, DRGA4, HCGUR, CUA2 #### [place] [address] [address] [place], [place] Hepatic Functionon 2 ALT [Catalytic activity/Vol] 108 U/L High 0-34 [facility] Comment on above: Result Comment: The ALT test is performed by an updated assay method. Please note that the reference intervals have been changed and are now sex specific. Performed By: #### E TOH4, BMP3, LFT3, CK3, HEMDF #### [place] [address] [place], [place] ALP [Catalytic activity/Vol] 93 U/L Normal 38-126 [facility] Comment on above: Performed By: #### E TOH4, BMP3, LFT3, CK3, HEMDF #### [place] [address] [place], [place] AST [Catalytic activity/Vol] 253 U/L High 15-46 [facility] Comment on above: Performed By: #### E TOH4, BMP3, LFT3, CK3, HEMDF #### [place] [address] [place], [place] Bilirubin [Mass/Vol] 1.1 mg/dL Normal 0.2-1.3 [facility] Comment on above: Performed By: #### E TOH4, BMP3, LFT3, CK3, HEMDF #### [address] Bilirubin.indirect [Mass/Vol] 0.0 mg/dL Normal 0.0-0.3 [facility] Comment on above: Performed By: #### E TOH4, BMP3, LFT3, CK3, HEMDF #### [address] Protein [Mass/Vol] 8.6 g/dL High 6.3-8.2 [facility] Comment on above: Performed By: #### E TOH4, BMP3, LFT3, CK3, HEMDF #### [address] Albumin [Mass/Vol] 4.6 g/dL Normal 3.5-5.0 [facility] Comment on above: Performed By: #### E TOH4, BMP3, LFT3, CK3, HEMDF #### [address] Hepatic Function Panelon Albumin [Mass/Vol] 4.6 g/dL 3.5 - 5.0 g/dL [facility] ALP (Bld) [Catalytic activity/Vol] 93 U/L 38 - 126 U/L [facility] ALT [Catalytic activity/Vol] 108 U/L High 0 - 34 U/L [facility] Comment on above: The ALT test is perf ormed by an updated assay method. Please note that the reference intervals have been changed and are now sex specific. AST [Catalytic activity/Vol] 253 U/L High 15 - 46 U/L [facility] Bilirubin [Mass/Vol] 1.1 mg/dL 0.2 - 1 .3 mg/dL [facility] Bilirubin.indirect [Mass/Vol] 0.0 mg/dL 0.0 - 0.3 mg/dL [facility] Free PSA/Total PSA [Mass fraction] 8.6 g/dL High 6.3 - 8.2 g/dL [facility] No Panel Informationon 09-13 Interpretation and review of laboratory results Abnormal [facility] Test Performed by [facility], [address] , URINEon 2 Beta HCG ( test) Ql (U) Negative Negative NA [facility] Comment on above: Please note: Very di lute urine specimens, as indicated by a low specific gravity, may not contain new accounts representative levels of hCG. If is still suspected, a first morning urine specimen should be collected 48 hours later and tested. is the most common reason for HCG in urine, although choriocarcinoma, hydatidiform mole, and certain nontropho- blastic malignancies also result in detectable urinary HCG levels. Sensitivity = 20mIU/mL. Test Performed by [facility], [address] [place], [place] [address]A SARS-CoV-2 Antigenon 022 SARS-CoV-2 Antigen Negative Normal Negative [facility] Comment on above: Result Comment: A negative result does not rule out the possibility of SARS-CoV-2 infection. NAAT-based methods should be considered for symptomatic patients presenting greater than seven days after onset of symptoms. Method: Lateral flow immunoassay. Fact sheets for healthcare providers and patients can be found at the following sites: https://www.Datadecision.gov/media/343378/download https://www.fda.gov/media/883698/download Performed By: #### F ENTU, DRGA4, HCGUR, CUA2 #### [address] [id number] SARS-CoV-2 Nucleocapsid Antigen Negative Negative [facility] Comment on above: A negative result does not rule out the possibility of SARS-CoV-2 infection. NAAT-based methods should be considered for symptomatic patients presenting greater than seven days after onset of symptoms. Method: Lateral flow immunoassay. Fact sheets for healthcare providers and patients can be found at the following sites: https://www.fda.gov/media/117892/download https://www.fda.gov/media/014383/download Test Performed by [facility], [address] [place] [id number] [place] [address] LAB [facility] Urinalysison 09-13-2021 Appearance (U) Clear Clear NA [facility] Comment on above: . Bacteria, UA Negative Negative /[HPF] [facility] Comment on above: . Bilirubin Urine Negative Negative mg/dL [facility] Comment on above: . Color (U) Yellow Lt. Yellow NA [facility] Comment on above: . Glucose, Ur Normal Normal (<70) mg/dL [facility] Comment on above: . Hyaline Casts, UA Negative Negative /[LPF] [facility] Comment on above: . Interpretation and review of laboratory results Abnormal [facility] Ketones Ql (U) 80 mg/dL Abnormal Negative [facility] Comment on above: . LEUKOCYTES, UA Negative Negative [place]/uL [facility] Comment on above: . Nitrite, Urine Negative Negative NA [facility] Comment on above: . Occult Blood,Urine Negative Negative mg/dL [facility] Comment on above: . pH (U) 5.5 [pH] [facility] Comment on above: . Protein (U) [Mass/Vol] 10 mg/dL Abnormal Negative [facility] Comment on above: . RBC, UA 0-2 0 - 2 /[HPF] [facility] Comment on above: . Specific [place], Urine 1.019 [facility] Comment on above: . Squam Epithel, UA 0-2 3 - 5 /[HPF] [facility] Comment on above: . Urobilinogen, Urine Normal Normal ( 0-1) mg/dL [facility] Comment on above: . WBC, UA Negative 0 - 5 /[HPF] [facility] Comment on above: . Test Performed by [facility], [address] [place] [id number] [place] [address] LAB [facility] Urine Drug Screenon 09-14-19 22 Amphetamines, urine Positive [facility] Barbiturates, Urine Negative [facility] Benzodiazepine Ur Qual Positive [facility] Cocaine Metabolites, Ur Negative [facility] Methadone, Urine Negative [facility] Opiates, Urine Negative [facility] Oxycodone Screen, Ur Negative [facility] A PCP, Urine Negative [facility] Comment on above: The expected value f or all of the drugs listed above is Negative. The following drugs or drug groups have been screened for by Immunoassay at the following thresholds: Amphetamine class (1000 ng/mL), Barbiturates (200 ng/mL), Benzodiazepines (200 ng/mL), Cocaine (300 ng/mL), Methadone (300 ng/mL), Opiates (300 ng/mL), Oxycodone (100 ng/mL), and PCP (25 ng/mL). NOTE: These results are for medical treatment only. Analysis performed using non-forensic procedures. POSITIVE results are NOT confirmed by a more specific alternative method unless requested. If confirmation is needed, request confirmation under separate order. Test Performed by [facility], [address] [place] [id number] [facility] LAB [facility] CNCOon 09-12-2021 CNCO Letter Text Normal [facility] CNPNon 09-12-2021 CNPN Telephone (AGINTMAC) SANCHEZDURGALORRAINE Bae ([id number]) 1985 F Date Time Provider Department 09/12/21 SANJU AN During your visit today, we recorded the following information about you: Luke Plascencia 09/12/2021 1:26 PM Signed No Show Documentation Genesis Kathia Sanchez no showed for an appointment on 09/12/21 with Sanju An DO at 9:40am. She was scheduled for follow up. I called and spoke with the patient regarding her missed appointment. Genesis stated the reason that she missed her appointment was because I called the patient left message to contact the office regarding missed appointment. Resources discussed/offered to patient: N/A No show determined to be fault of patient: Yes This is the patients first no show in the last 12 months. Patient was rescheduled for N/A. Letter mailed : Yes Is this the Third or Fourth No Show? No Luke Echeverriaos September 12, 2021 1:22 PM Allergies As of Date: 09/12/2021 Noted Allergy Reaction environmental [Other] 02/22/2009 5 - Intolerance Comments: Sinus infections/congestion Date Reviewed: 08/06/2021 Reviewed by: Toy Hay LPN - Fully Assessed Reason for Visit: No Show [1558] Cmt: 1st No Show Prescriptions as of 09/12/2021 - traZODone (DESYREL) 50 mg tablet Take 50 mg by mouth daily at bedtime. - hydrOXYzine pamoate (VISTARIL) 50 mg capsule - cloNIDine HCl (CATAPRES) 0.1 mg tablet - omeprazole (PRILOSEC) 40 mg capsule - citalopram (CELEXA) 20 mg tablet Take 20 mg by mouth every morning. - melatonin 10 mg tab Problem List As Of Date 09/12/2021 Noted Resolved Supervision of other normal [Z34.80] 03/02/2006 03/01/2012 Previous delivery, antepartum conditio*09/17/2006 03/01/2012 Threatened premature labor, antepartum [O47.00] 09/17/2006 03/01/2012 ANXIETY STATE NOS [F41.1] 04/13/2008 ALLERGIC RHINITIS NOS [J30.9] 04/13/2008 TOBACCO USE DISORDER [F17.200] 04/13/2008 S/P LEEP [Z98.890] 03/01/2012 History of drug dependence/abuse (HCC) [F19.21] 08/06/2021 Hepatitis C virus infection without hepatic com*08/06/2021 Encounter Status:Closed by LUKE PLASCENCIA on 09/12/21 [facility] Giovanny 08-22-2021 ROMMEL Telephone (JENNIFER) GENESIS BRADFORD ([id number]) 1985 F Date Time Provider Department 08/22/21 VIBHA RAMOS During your visit today, we recorded the following information about you: FAISAL Mccurdy 08/22/2021 10:32 AM Signed JULIEN phoned Pt to check on her wellbeing. Pt reported she went to [place]. Pt also stated no one called to schedule for her GI doctor. JULIEN gave Pt phone numbers for GI [phone] and Infectious Disease [phone] doctor. 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 - hydrOXYzine pamoate (VISTARIL) 50 mg capsule - cloNIDine HCl (CATAPRES) 0.1 mg tablet - omeprazole (PRILOSEC) 40 mg capsule - citalopram (CELEXA) 20 mg tablet Take 20 mg by mouth every morning. - melatonin 10 mg tab Problem List As Of Date 08/22/2021 Noted Resolved Supervision of other normal [Z34.80] 03/02/2006 03/01/2012 Previous delivery, antepartum conditio*09/17/2006 03/01/2012 Threatened premature labor, antepartum [O47.00] 09/17/2006 03/01/2012 ANXIETY STATE NOS [F41.1] 04/13/2008 ALLERGIC RHINITIS NOS [J30.9] 04/13/2008 TOBACCO USE DISORDER [F17.200] 04/13/2008 S/P LEEP [Z98.890] 03/01/2012 History of drug dependence/abuse (HCC) [F19.21] 08/06/2021 Hepatitis C virus infection without hepatic com*08/06/2021 Encounter Status:Closed by VIBHA RAMOS on 08/22/21 [facility] Giovanny 08-15-2021 ANATOLYN Telephone (PSYAGN) GENESIS BRADFORD ([id number]) 1985 F Date Time Provider Department 08/15/21 EMMETT CRYSTAL PSYAGN During your visit today, we recorded the following information about you: Sandy Meléndez 08/15/2021 3:24 PM Signed Called and spoke with patient regarding a referral request, she stated that she didn't not want to come here and found a different counselor. Allergies As of Date: 08/15/2021 Noted Allergy Reaction environmental [Other] 02/22/2009 5 - Intolerance Comments: Sinus infections/congestion Date Reviewed: 08/06/2021 Reviewed by: Toy Hay LPN - Fully Assessed Reason for Visit: Referral Request [124] Prescriptions as of 08/15/2021 - traZODone (DESYREL) 50 mg tablet Take 50 mg by mouth daily at bedtime. - hydrOXYzine pamoate (VISTARIL) 50 mg capsule - cloNIDine HCl (CATAPRES) 0.1 mg tablet - omeprazole (PRILOSEC) 40 mg capsule - citalopram (CELEXA) 20 mg tablet Take 20 mg by mouth every morning. - melatonin 10 mg tab Problem List As Of Date 08/15/2021 Noted Resolved Supervision of other normal [Z34.80] 03/02/2006 03/01/2012 Previous delivery, antepartum conditio*09/17/2006 03/01/2012 Threatened premature labor, antepartum [O47.00] 09/17/2006 03/01/2012 ANXIETY STATE NOS [F41.1] 04/13/2008 ALLERGIC RHINITIS NOS [J30.9] 04/13/2008 TOBACCO USE DISORDER [F17.200] 04/13/2008 S/P LEEP [Z98.890] 03/01/2012 History of drug dependence/abuse (HCC) [F19.21] 08/06/2021 Hepatitis C virus infection without hepatic com*08/06/2021 Encounter Status:Closed by SANDY MELÉNDEZ on 08/15/21 [facility] CNPN Telephone (MTNICK) LUCITA BRADFORDCherry Kathia ([id number]) 1985 F Date Time Provider Department 08/15/21 SANJU AN During your visit today, we recorded the following information about you: Sanju AnDO 08/15/2021 11:35 AM Signed Called the patient regarding her recent HCV quant RNA by PCR result 08/15/2021. Placed a consult for ID and GI. Answered pt's questions to the best of my ability. Pt agrees to follow up with the consults. Sanju An, DO August 15, 2021 11:33 AM Allergies As of Date: 08/15/2021 Noted Allergy Reaction environmental [Other] 02/22/2009 5 - Intolerance Comments: Sinus infections/congestion Date Reviewed: 08/06/2021 Reviewed by: Toy Hay LPN - Fully Assessed Reason for Visit: Results [95] Primary Visit Diagnosis:Hepatitis C virus infection without hepatic coma, unspecified chronicity [B19.20] Order(s):CONSULT TO GASTROENTEROLOGY [9010] Order #: [id number]: 1 FUTURE CONSULT TO INFECTIOUS DISEASES [9016] Order #: [id number]: 1 FUTURE Prescriptions as of 08/15/2021 - traZODone (DESYREL) 50 mg tablet Take 50 mg by mouth daily at bedtime. - hydrOXYzine pamoate (VISTARIL) 50 mg capsule - cloNIDine HCl (CATAPRES) 0.1 mg tablet - omeprazole (PRILOSEC) 40 mg capsule - citalopram (CELEXA) 20 mg tablet Take 20 mg by mouth every morning. - melatonin 10 mg tab Problem List As Of Date 08/15/2021 Noted Resolved Supervision of other normal [Z34.80] 03/02/2006 03/01/2012 Previous delivery, antepartum conditio*09/17/2006 03/01/2012 Threatened premature labor, antepartum [O47.00] 09/17/2006 03/01/2012 ANXIETY STATE NOS [F41.1] 04/13/2008 ALLERGIC RHINITIS NOS [J30.9] 04/13/2008 TOBACCO USE DISORDER [F17.200] 04/13/2008 S/P LEEP [Z98.890] 03/01/2012 History of drug dependence/abuse (HCC) [F19.21] 08/06/2021 Hepatitis C virus infection without hepatic com*08/06/2021 Encounter Status:Closed by SANJU AN on 08/15/21 Normal [facility] CBC panel Auto (Bld)on 08-14 Erythrocyte distribution width (RBC) [Ratio] 14.9 % Normal 11.5-15.0 [facility] Comment on above: Order Comment: Speci men Type: BLOOD SPECIMENOrdering Facility: [facility] Address: [address] [place] [address] Performed By: #### 5 8410-2 ####[facility] LABORATORYCLIA [id number] [address] STATES OF [facility] Hematocrit (Bld) [Volume fraction] 39.7 % Normal 36.0-46.0 [facility] Comment on above: Order Comment: Speci men Type: BLOOD SPECIMENOrdering Facility: [facility] Address: [address] [place] [address] Performed By: #### 5 8410-2 ####[facility] LABORATORYCLIA [id number] [address] [place] Hemoglobin (Bld) [Mass/Vol] 12.5 g/dL Normal 11.5-15.5 [facility] Comment on above: Order Comment: Speci men Type: BLOOD SPECIMENOrdering Facility: [facility] Address: [address] [place] [address] Performed By: #### 5 8410-2 ####[facility] LABORATORYCLIA [id number] [address] [place] MCH (RBC) [Entitic mass] 26.2 pg Normal 26.0-34.0 [facility] Comment on above: Order Comment: Speci men Type: BLOOD SPECIMENOrdering Facility: [facility] Address: [address] [place] [address] Performed By: #### 5 8410-2 ####[facility] LABORATORYCLIA [id number] [address] STATES [facility] MCHC (RBC) [Mass/Vol] 31.5 g/dL Normal 30.5-36.0 [facility] Comment on above: Order Comment: Speci men Type: BLOOD SPECIMENOrdering Facility: [facility] Address: [address] [place] [address] Performed By: #### 5 8410-2 ####[facility] LABORATORYCLIA [id number] [address] STATES [facility] MCV (RBC) [Entitic vol] 83.2 fL Normal 80.0-100.0 [facility] Comment on above: Order Comment: Speci men Type: BLOOD SPECIMENOrdering Facility: [facility] Address: [address] [place] [address] Performed By: #### 5 8410-2 ####[facility] LABORATORYCLIA [id number] [address] Nucleated RBC (Bld) [#/Vol] 10*3/uL Normal <0.01 [facility] Comment on above: Order Comment: Speci men Type: BLOOD SPECIMENOrdering Facility: [facility] Address: [address] [place] [address] Performed By: #### 5 8410-2 ####[facility] LABORATORYCLIA [id number] [address] STATES [facility] Platelet mean volume (Bld) [Entitic vol] 9.6 fL Normal 9.0-12.7 [facility] Comment on above: Order Comment: Speci men Type: BLOOD SPECIMENOrdering Facility: [facility] Address: [address] [place] [address] Performed By: #### 5 8410-2 ####[facility] LABORATORYCLIA [id number] [address] [place] Platelets (Bld) [#/Vol] 383 10*3/uL Normal 150-400 [facility] Comment on above: Order Comment: Speci men Type: BLOOD SPECIMENOrdering Facility: [facility] Address: [address] [place] [address] Performed By: #### 5 8410-2 ####[facility] LABORATORYCLIA [id number] [address] OF [facility] RBC (Bld) [#/Vol] 4.77 10*6/uL Normal 3.90-5.20 [facility] Comment on above: Order Comment: Speci men Type: BLOOD SPECIMENOrdering Facility: [facility] Address: [address] [place]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 Oconnell MD Work Phone: Start: 02-01-2024 MEDICATION ASSISTED TREATMENT PANEL Miya Oconnell MD Work Phone: Start: 01-04-2024 Urnls dip stick/tablet rgnt auto w/o microscopy Rena Downey MD Work Phone: Start: 01-04-2024 UA DIP,URINE HCG (POC) Rena Downey MD Work Phone: Start: 11-12-2023 Microscopic observation [Identifier] in Cervix by Cyto stain Miya Oconnell MD Work Phone: Start: 11-11-2023 MEDICATION ASSISTED TREATMENT PANEL Miya Oconnell MD Work Phone: Start: 03-10-2023 Plain x-ray of elbow Start: 03-10-2023 X-ray of lumbar spine, two or three views Start: 10-06-2022 Urnls dip stick/tablet rgnt auto w/o microscopy Myrtle Garciaava ARELLANON.CNM Work Phone: Start: 09-14-2021 Assay of magnesium Sunita Fuentes MD Work Phone: Start: 09-14-2021 BASIC METABOLIC PANEL W/ REFLEX TO MG FOR LOW K Sunita Fuentes MD Work Phone: Start: 09-14-2021 Hepatic function panel Sunita Fuentes MD Work Phone: Start: 09-13-2021 Creatine kinase total Sunita Fuentes MD Work Phone: Start: 09-13-2021 Creatine kinase total Jennifer LANDEROS RN - SCANNER OPERATOR Work Phone: Start: 09-13-2021 Creatine kinase total Jennifer LANDEROS RN - SCANNER OPERATOR Work Phone: Start: 09-13-2021 ADD ON LAB TEST João Stacy IRONER SOCK - SCANNER OPERATOR Work Phone: Start: 09-13-2021 Creatine kinase total João LANDEROS RN - SCANNER OPERATOR Work Phone: Start: 09-13-2021 POCT COVID-19, ANTIGEN João Carey PRN - SCANNER OPERATOR Work Phone: Start: 09-13-2021 Ecg routine ecg w/least 12 lds w/i&r João Stacy IRONER SOCK - SCANNER OPERATOR Work Phone: Start: 09-13-2021 Assay of ethanol João Stacy IRONER SOCK - SCANNER OPERATOR Work Phone: Start: 09-13-2021 Basic metabolic panel calcium total João Stacy IRONER SOCK - SCANNER OPERATOR Work Phone: Start: 09-13-2021 Drug screen class list a João Stacy IRONER SOCK - SCANNER OPERATOR Work Phone: Start: 09-13-2021 Hepatic function panel João Carey PRN - SCANNER OPERATOR Work Phone: Start: 09-13-2021 Urnls dip stick/tablet rgnt auto w/o microscopy João Stacy IRONER SOCK - SCANNER OPERATOR Work Phone: Start: 08-06-2021 Adult depression screening assessment Vibha Ramos FOLDER INSPECTOR Work Phone: Start: 09-25-2019 Ct cervical spine w/o contrast material Jarocho Figueredoh Work Phone: Start: 09-25-2019 Ct head/brain w/o contrast material Jarocho Camargo Zach Work Phone: Start: 09-25-2019 Ct maxillofacial w/o contrast material Jarocho Figueredoh Work Phone: Start: 09-17-2006 End: 03-01-2012 H/O: section Previous delivery, antepartum condition or complication Talia Landry IRONER SOCK.SCANNER OPERATOR Work Phone: Plan of Treatment Date Care Activity Detail Author Start: 08-09-2059 RSV Immunization for Adults (1 - 1-dose 75+ series) RSV Immunization for Adults (1 - 1-dose 75+ series) [facility] Start: 2044 RSV Immunization age d 60 or older (1 - 1-dose 60+ series) RSV Immunization aged 60 or older (1 - 1-dose 60+ series) [facility] Start: 2034 Zoster Vaccines (1 o f 2) Zoster Vaccines (1 of 2) [facility] Start: 11-15-2027 DTaP/Tdap/Td vaccine (3 - Td or Tdap) DTaP/Tdap/Td vaccine (3 - Td or Tdap) [facility] Start: 11-15-2027 DTaP/Tdap/Td Vaccine s (3 - Td or Tdap) DTaP/Tdap/Td Vaccines (3 - Td or Tdap) [facility] Start: 11-15-2027 Urine microalbumin profile [facility] Start: 06-09-2027 HPV TESTING HPV TESTING [facility] Start: 06-09-2027 PAP TESTING PAP TESTING [facility] Start: 11-11-2026 Screening for malign ant neoplasm of cervix [facility] Start: 11-11-2024 End: 11-11-2024 Patient encounter procedure 11/11/2024 4:00 PM EDT Office Visit OB/Gynecology [address] [place], [place] [id number] Talia Landry APRN.SCANNER OPERATOR [address] [place] [address] annual OB/Gynecology Comment on above: annual Start: 11-11-2024 Screening for malign ant neoplasm of cervix Cervical Cancer Screening [facility] Start: 2024 Screening for malign ant neoplasm of breast Mammogram Screening [facility] Start: 06-07-2024 End: 06-07-2024 Telemedicine consultation with patient 06/07/2024 3:15 PM EST Telemedicine [facility] [address] [place] [phone] Miya Oconnell MD [address] [place], [place] [phone] [facility] Start: 05-11-2024 End: 05-11-2024 Telemedicine consultation with patient 05/11/2024 2:45 PM EST Telemedicine [facility] [address] [place] [phone] Miya Oconnell MD [address] [place], [place] [phone] [facility] Start: 04-13-2024 End: 04-13-2024 Telemedicine consultation with patient 04/13/2024 3:00 PM EST Telemedicine [facility] [address] [place] [address] Miya Oconnell MD [address] [place], [place] [phone] [facility] Start: 04-13-2024 End: 04-13-2025 MEDICATION ASSISTED TREATMENT PANEL MEDICATION ASSISTED TREATMENT PANEL Lab Routine Uncomplicated opioid dependence (HCC) Expected: 04/13/2024 (Approximate), Expires: 04/13/2025 [facility] Work Phone: Comment on above: Expected: 04/13/2024 (Approximate), Expires: 04/13/2025 Start: 04-05-2024 End: 07-05-2024 Hepatitis B virus surface Ag [Presence] in Serum HEPATITIS B SURFACE ANTIGEN Lab Routine Screening for STD (sexually transmitted disease) Expected: 04/05/2024, Expires: 07/05/2024 [facility] Comment on above: Expected: 04/05/2024 , Expires: 07/05/2024 Start: 04-05-2024 End: 07-05-2024 Hepatitis C virus Ab [Presence] in Serum HEPATITIS C ANTIBODY IA WITH CONFIRMATION Lab Routine Screening for STD (sexually transmitted disease) Expected: 04/05/2024, Expires: 07/05/2024 [facility] Comment on above: Expected: 04/05/2024 , Expires: 07/05/2024 Start: 04-05-2024 End: 07-05-2024 HIV 1+2 Ab [Presence] in Serum or Plasma by Immunoassay HIV 1/2 COMBO WITH REFLEX TO DIFFERENTIATION Lab Routine Screening for STD (sexually transmitted disease) Expected: 04/05/2024, Expires: 07/05/2024 [facility] Comment on above: Expected: 04/05/2024 , Expires: 07/05/2024 Start: 04-05-2024 End: 07-05-2024 SYPHILIS TREPONEMAL W/REFLEX SYPHILIS TREPONEMAL W/REFLEX Lab Routine Screening for STD (sexually transmitted disease) Expected: 04/05/2024, Expires: 07/05/2024 [facility] Work Phone: Comment on above: Expected: 04/05/2024 , Expires: 07/05/2024 Start: 03-16-2024 End: 03-16-2024 Telemedicine consultation with patient 03/16/2024 2:45 PM EDT Telemedicine [facility] [address] [place] [phone] Miya Oconnell MD [address] [place] [address] [facility] Start: 02-17-2024 End: 02-17-2024 Telemedicine consultation with patient 02/17/2024 3:30 PM EDT Telemedicine [facility] [address] [place] [phone] Miya Oconnell MD [address] [place] [address] [facility] Start: 02-02-2024 End: 02-02-2024 Telemedicine consultation with patient 02/02/2024 3:45 PM EDT Telemedicine [facility] [address] [place] [phone] Miya Oconnell MD [address] [place] [address] [facility] Start: 01-24-2024 COVID-19 Vaccine ( season) COVID-19 Vaccine ( season) [facility] Start: 01-24-2024 COVID-19 Vaccine ( season) COVID-19 Vaccine ( season) [facility] Start: 01-24-2024 Influenza vaccination C [facility] Start: 01-19-2024 End: 01-19-2024 Telemedicine consultation with patient 01/19/2024 2:45 PM EDT Telemedicine [facility] [address] [place] [phone] Miya Oconnell MD [address] [place], [place] [phone] [facility] Start: 01-19-2024 End: 01-18-2025 MEDICATION ASSISTED TREATMENT PANEL MEDICATION ASSISTED TREATMENT PANEL Lab Routine Uncomplicated opioid dependence (HCC) Expected: 01/19/2024 (Approximate), Expires: 01/18/2025 [facility] Work Phone: Comment on above: Expected: 01/19/2024 (Approximate), Expires: 01/18/2025 Start: 01-05-2024 End: 01-05-2024 Telemedicine consultation with patient 01/05/2024 3:45 PM EDT Telemedicine [facility] [address] [place] [address] Miya Oconnell MD [address] [place], [place] [phone] [facility] Start: 01-05-2024 End: 01-04-2025 MEDICATION ASSISTED TREATMENT PANEL MEDICATION ASSISTED TREATMENT PANEL Lab Routine Uncomplicated opioid dependence (HCC) Expected: 01/05/2024 (Approximate), Expires: 01/04/[address] [facility] [employer] Work Phone: Comment on above: Expected: 01/05/2024 (Approximate), Expires: 01/04/2025 Start: 01-04-2024 End: 04-04-2024 Hepatitis B virus surface Ag [Presence] in Serum HEPATITIS B SURFACE ANTIGEN Lab Routine Screen for STD (sexually transmitted disease) Expected: 01/04/2024, Expires: 04/04/2024 [facility] Comment on above: Expected: 01/04/2024 , Expires: 04/04/2024 Start: 01-04-2024 End: 04-04-2024 Hepatitis C virus Ab [Presence] in Serum HEPATITIS C ANTIBODY IA WITH CONFIRMATION Lab Routine Screen for STD (sexually transmitted disease) Expected: 01/04/2024, Expires: 04/04/2024 [facility] Comment on above: Expected: 01/04/2024 , Expires: 04/04/2024 Start: 01-04-2024 End: 04-04-2024 HIV 1+2 Ab [Presence] in Serum or Plasma by Immunoassay HIV 1/2 COMBO WITH REFLEX TO DIFFERENTIATION Lab Routine Screen for STD (sexually transmitted disease) Expected: 01/04/2024, Expires: 04/04/2024 [facility] Comment on above: Expected: 01/04/2024 , Expires: 04/04/2024 Start: 01-04-2024 End: 01-04-2024 Patient encounter procedure 01/04/2024 2:00 PM EDT Office Visit OB/Gynecology [address] [place], [place] [phone] Rena Downey MD [address] [place], [place] [phone] [facility] HPV+ OB/Gynecology Comment on above: [facility]+ Start: 01-04-2024 End: 04-04-2024 SYPHILIS TOTAL W/REFLEX SYPHILIS TOTAL W/REFLEX Lab Routine Screen for STD (sexually transmitted disease) Expected: 01/04/2024, Expires: 04/04/2024 [facility] Work Phone: Comment on above: Expected: 01/04/2024 , Expires: 04/04/2024 Start: 12-22-2023 End: 12-22-2023 Telemedicine consultation with patient 12/22/2023 3:30 PM EDT Telemedicine [facility] [address] [place] [phone] Miya Oconnell MD [address] [place] [address] [facility] Start: 12-08-2023 End: 12-07-2024 MEDICATION ASSISTED TREATMENT PANEL MEDICATION ASSISTED TREATMENT PANEL Lab Routine Uncomplicated opioid dependence (HCC) Expected: 12/08/2023 (Approximate), Expires: 12/07/2024 [facility] Work Phone: Comment on above: Expected: 12/08/2023 (Approximate), Expires: 12/07/2024 Start: 12-01-2023 End: 12-01-2023 Patient encounter procedure 12/01/2023 2:45 PM EDT Office Visit [facility] [address] [place] [phone] Miya Oconnell MD [address] [place], [place] [phone] [facility] Start: 11-18-2023 End: 11-17-2024 MEDICATION ASSISTED TREATMENT PANEL MEDICATION ASSISTED TREATMENT PANEL Lab Routine Uncomplicated opioid dependence (HCC) Expected: 11/18/2023 (Approximate), Expires: 11/17/2024 [facility] Work Phone: Comment on above: Expected: 11/18/2023 (Approximate), Expires: 11/17/2024 Start: 11-12-2023 End: 02-11-2024 Hemoglobin A1c in Blood [facility] Comment on above: Expected: 11/12/2023 , Expires: 02/11/2024 Start: 06-09-2023 Screening for malign ant neoplasm of cervix Cervical Cancer Screening [facility] Start: 05-25-2023 Behavioral Health Screening Behavioral Health Screening [facility] Start: 03-10-2023 [facility] Start: 01-23-2023 Covid-19 Vaccine ( season) Covid-19 Vaccine ( season) [facility] Start: 01-23-2023 Influenza vaccination INFLUENZA (Sea son Ended) [facility] Start: 08-06-2022 Adult depression screening assessment DEPRESSION SCREENING [facility] Start: 06-09-2022 End: 08-09-2022 Hepatitis B virus surface Ag [Presence] in Serum [facility] Work Phone: Comment on above: Expected: 06/09/2022 , Expires: 08/09/2022 Start: 06-09-2022 End: 08-09-2022 HIV 1+2 Ab [Presence] in Serum or Plasma by Immunoassay [facility] Work Phone: Comment on above: Expected: 06/09/2022 , Expires: 08/09/2022 Start: 06-09-2022 End: 08-09-2022 SYPHILIS TOTAL W/REFLEX [facility] Work Phone: Comment on above: Expected: 06/09/2022 , Expires: 08/09/2022 Start: 05-25-2022 DEPRESSION ASSESSMENT DEPRESSION ASS ESSMENT [facility] Start: 04-07-2022 Procedure [facility] Work Phone: Start: 01-23-2022 Influenza vaccination [facility] Start: 03-11-2021 HPV TESTING HPV TESTING [facility] Start: 03-11-2021 PAP TESTING PAP TESTING [facility] Start: 01-23-2021 Influenza vaccination INFLUENZA (#1) [facility] Start: 01-24-2020 Influenza vaccination Flu vacc ine (Season Ended) [place], [place] Start: 2014 Screening for malign ant neoplasm of cervix [facility] Start: 2005 Screening for malign ant neoplasm of cervix Pap Smear [facility] Start: 08-09-2003 Hepatitis A Vaccines (1 of 2 - Risk 2-dose series) Hepatitis A Vaccines (1 of 2 - Risk 2-dose series) [facility] Start: 08-09-2003 Hepatitis B Vaccine (1 of 3 - 19+ 3-dose series) Hepatitis B Vaccine (1 of 3 - 19+ 3-dose series) [facility] Start: 08-09-2003 Hepatitis B Vaccines (1 of 3 - 19+ 3-dose series) Hepatitis B Vaccines (1 of 3 - 19+ 3-dose series) [facility] Start: 08-09-2003 ONE PNEUMOVAX PRIOR TO AGE 65 ONE PNEUMOVAX PRIOR TO AGE 65 [facility] Start: 08-09-2003 Pneumococcal vaccination Pneumococcal Vaccine (1 of 2 - PCV) [facility] Start: 08-09-2003 Pneumococcal Vaccine : Pediatrics (0 to 5 Years) and At-Risk Patients (6 to 49 Years) (1 of 2 - PCV) Pneumococcal Vaccine: Pediatrics (0 to 5 Years) and At-Risk Patients (6 to 49 Years) (1 of 2 - PCV) [facility] Start: 2002 Depression Screening Depression Scre ening [facility] Start: 1997 Varicella vaccination Varicell a Vaccines (1 of 2 - 13+ 2-dose series) [facility] Start: 1996 Depression Screening Depression Scre ening [facility] Start: 1990 PNEUMOCOCCAL (1 - PCV) PNEUMOCOCCAL (1 - PCV) [facility] Start: 1990 Pneumococcal vaccination Pneumococcal Vaccine (1 of 2 - PCV) [facility] Start: 1990 Pneumococcal Vaccine : Pediatrics (0 to 5 Years) and At-Risk Patients (6 to 64 Years) (1 of 2 - PCV) Pneumococcal Vaccine: Pediatrics (0 to 5 Years) and At-Risk Patients (6 to 64 Years) (1 of 2 - PCV) [facility] Start: 1989 COVID-19 VACCINE (1) COVID-19 VACCIN E (1) [facility] Start: 1985 MMR Vaccines (1 of 1 - Standard series) MMR Vaccines (1 of 1 - Standard series) [facility] Start: 02-08-1985 COVID-19 VACCINE (#1) COVID-19 VACCI NE (#1) [facility] Start: 1984 HEPATITIS B (1 of 3 - 3-dose series) HEPATITIS B (1 of 3 - 3-dose series) [facility] Start: 1984 HIV screening HIV Screening [facility] Bacteria identified in Urine by Culture URINE CULTURE Microbiology Routine Dysuria 10/06/2022 12:14 PM EDT [facility] Work Phone: BACTERIAL VAGINOSIS AMPLIFICATION BACTERIAL VAGINOSIS AMPLIFICATION Lab Routine Screen for STD (sexually transmitted disease) 06/09/2022 2:07 PM EST [facility] Work Phone: BACTERIAL VAGINOSIS AMPLIFICATION BACTERIAL VAGINOSIS AMPLIFICATION Lab Routine Vulvar irritation 10/06/2022 12:14 PM EDT [facility] Work Phone: BACTERIAL VAGINOSIS NAAT BACTERIAL VAGINOSIS NAAT Lab Routine Screening for STD (sexually transmitted disease) Ordered: 04/05/2024 [facility] Comment on above: Ordered: 04/05/2024 Basic metabolic 2000 panel - Serum or Plasma Basic Metabolic Panel Lab Routine Daily until discontinued starting 09/14/2021, [address] [facility] Work Phone: Comment on above: Daily until disconti nued starting 09/14/2021, 1 completed KEAGAN / TRICHOMONA S AMPLIFICATION KEAGAN / TRICHOMONAS AMPLIFICATION Microbiology Routine Screen for STD (sexually transmitted disease) 06/09/2022 2:07 PM [employer] [facility] Work Phone: KEAGAN / TRICHOMONA S AMPLIFICATION KEAGAN / TRICHOMONAS AMPLIFICATION Microbiology Routine Vulvar irritation 10/06/2022 12:14 PM EDT [facility] Work Phone: KEAGAN/TRICHOMONAS NAAT KEAGAN/TRICHOMONAS NAAT Lab Routine Screening for STD (sexually transmitted disease) Ordered: 04/05/2024 [facility] Comment on above: Ordered: 04/05/2024 CBC W Auto Different ial panel - Blood CBC auto differential Lab Routine Daily until discontinued starting 09/14/2021, 1 completed [facility] Work Phone: Comment on above: Daily until disconti nued starting 09/14/2021, 1 completed Chlamydia trachomatis+Neisseria gonorrhoeae DNA [Presence] in Unspecified specimen by DARIO with probe detection GC/CHLAMYDIA DNA DET Lab Routine Screen for STD (sexually transmitted disease) 06/09/2022 2:07 PM [facility] Work Phone: Chlamydia trachomatis+Neisseria gonorrhoeae DNA [Presence] in Unspecified specimen by DARIO with probe detection GC/CHLAMYDIA DNA DET Lab Routine Screen for STD (sexually transmitted disease) Vulvar irritation 10/06/2022 12:14 PM EDT [facility] Work Phone: Chlamydia trachomatis+Neisseria gonorrhoeae DNA [Presence] in Unspecified specimen by DARIO with probe detection GONORRHEA/CHLAMYDIA NAAT Lab Routine Screen for STD (sexually transmitted disease) 01/04/2024 2:00 PM T [facility] Chlamydia trachomatis+Neisseria gonorrhoeae DNA [Presence] in Unspecified specimen by DARIO with probe detection GONORRHEA/CHLAMYDIA NAAT Lab Routine Screening for STD (sexually transmitted disease) Ordered: 04/05/2024 [facility] Comment on above: Ordered: 04/05/2024 COLPOSCOPY COLPOSCOPY Proce dures Routine ASCUS with positive high risk HPV cervical Ordered: 11/30/2023 [facility] Work Phone: Comment on above: Ordered: 11/30/2023 Continuous pulse oximetry Pulse oximetry, continuous Respiratory Care Routine Every 4hr until discontinued starting 09/13/2021 [facility] Work Phone: Comment on above: Every 4hr until disc ontinued starting 09/13/2021 COVID & INFLUENZA A/ B & RSV PCR, ROUTINE COVID & INFLUENZA A/B & RSV PCR, ROUTINE Microbiology Routine URI, acute Ordered: 05/10/2024 [facility] Work Phone: Comment on above: Ordered: 05/10/2024 Hepatic function 200 0 panel - Serum or Plasma Hepatic function panel Lab Routine Daily until discontinued starting 09/14/2021, 1 completed [facility] Work Phone: Comment on above: Daily until disconti nued starting 09/14/2021, 1 completed Oxygen therapy [[facility] Data Set] Initiate Oxygen Therapy Protocol Respiratory Care Routine Daily until discontinued starting 09/13/2021 [facility] Work Phone: Comment on above: Daily until disconti nued starting 09/13/2021 PAP FLUID CERVICAL SCREENING PAP FLUID CERVICAL SCREENING Lab Routine Encounter for gynecological examination (general) (routine) without abnormal findings Screening for cervical cancer Encounter for screening for human papillomavirus (HPV) 06/09/2022 2:07 PM EST [facility] Work Phone: PAP TEST PAP TEST Lab [employer] Screening for cervical cancer Encounter for screening for human papillomavirus (HPV) Ordered: 11/12/2023 [facility] Work Phone: Comment on above: Ordered: 11/12/2023 Patient Education [facility] Work Phone: Patient referral [facility] Work Phone: Procedure [facility] Work Phone: SURGICAL PATHOLOGY SURGICAL PATH OLOGY Lab Routine ASCUS with positive high risk HPV cervical 01/04/2024 2:00 PM EDT [facility] TRICHOMONAS VAGINALI S NAAT TRICHOMONAS VAGINALIS NAAT Lab Routine Screen for STD (sexually transmitted disease) 01/04/2024 2:00 PM EDT [facility] End: 09-13-2021 URINE DRUG SCREEN URINE DRUG SCREEN Lab Add-On One Time for 1 Occurrences starting 09/13/2021 until 09/13/2021 [facility] Work Phone: Comment on above: One Time for 1 Occur rences starting 09/13/2021 until 09/13/2021 Urine test visual color cmprsn meths HCG QUAL UR B/O Lab Routine Encounter for test, result unknown Ordered: 09/03/2024 [facility] Work Phone: Comment on above: Ordered: 09/03/2024 End: 09-13-2021 Wound Consult Wound Consult Wound Ostomy Routine One Time for 1 Occurrences starting 09/13/2021 until 09/13/2021 [facility] Work Phone: Comment on above: One Time for 1 Occur rences starting 09/13/2021 until 09/13/2021 [facility] Immunizations Immunization Date Immunization Notes Care Provider Joey lindquist 11-14-2017 tetanus toxoid, redu kiki diphtheria toxoid, and acellular pertussis vaccine, adsorbed Vibha Raoms FOLDER INSPECTOR Work Phone: [facility] 03-03-2017 influenza, injectabl e, quadrivalent, contains preservative Vibha Ramos FOLDER INSPECTOR Work Phone: [facility] 03-03-2017 influenza virus vaccine, unspecified formulation Talia Landry APRN.SCANNER OPERATOR Work Phone: [facility] 03-11-2016 influenza, injectabl e, quadrivalent, contains preservative Vibha Ramos FOLDER INSPECTOR Work Phone: [facility] 03-11-2016 influenza, seasonal, injectable Vibha Ramos FOLDER INSPECTOR Work Phone: [facility] Work Phone: 02-26-2013 influenza virus vaccine, unspecified formulation Vibha Ramos FOLDER INSPECTOR Work Phone: [facility] Work Phone: 03-01-2011 influenza virus vaccine, unspecified formulation Vibha Ramos FOLDER INSPECTOR Work Phone: [facility] Work Phone: 03-14-2010 influenza virus vaccine, unspecified formulation Vibha Ramos FOLDER INSPECTOR Work Phone: [facility] Work Phone: 02-17-2009 influenza virus vaccine, unspecified formulation Vibha Ramos FOLDER INSPECTOR Work Phone: [facility] Work Phone: 10-20-2007 tetanus toxoid, redu kiki diphtheria toxoid, and acellular pertussis vaccine, adsorbed Vibha Ramos FOLDER INSPECTOR Work Phone: [facility] 03-30-2006 influenza virus vaccine, unspecified formulation Vibha Ramos FOLDER INSPECTOR Work Phone: [facility] Payers Date Payer Category Payer Self-pay [id number] 2022 Medicaid HMO [employer] ODM [id number] 2022 Unknown [id number] 2017 Medicaid [employer] [facility] [id number] 2017-Present [phone] [address] [place] [address] Medicaid [id number] 2017 Medicaid [id number] 1984 Unknown [id number] 1984 Unknown [id number] 1984 Unknown [id number] 1984 Unknown [id number] Unknown [id number] Unknown [id number] Unknown [id number] Unknown [id number] Social History Date Type Detail Facility Start: 09-25-2019 End: 04-05-2024 Tobacco smoking status NHIS Current every day smoker [facility] Work Phone: Start: 09-25-2019 End: 09-03-2024 Alcohol intake Ex-drinker (finding) [place], [place] Start: 1985 Sex Assigned At Not on file M [place], [place] Exposure to SARS-CoV -2 (event) Unable to assess [place], [place] History of tobacco use Cigarette Smoker C [facility] Work Phone: Start: 08-06-2021 Alcohol intake Current drinke r of alcohol (finding) [facility] Start: 03-11-2016 History SDOH Alcohol Comment Occasionally [facility] Start: 1985 Sex Assigned At Female C [facility] Start: 08-04-2021 End: 08-14-2021 Exposure to SARS-CoV-2 (event) Not sure [facility] Start: 09-03-2021 End: 09-13-2021 Exposure to SARS-CoV-2 (event) Yes [facility] Start: 04-06-2021 End: 03-10-2023 Tobacco smoking status NHIS Unknown if ever smoked [facility] Start: 08-29-2020 None [facility] Start: 08-29-2020 Cocaine;Heroin ;Marijua na [facility] Start: 08-29-2020 Homeless [facility] Start: 08-29-2020 Cigarettes [facility] Start: 06-09-2022 End: 06-11-2023 Cigarettes smoked current (pack per day) - Reported 1 [facility] Start: 06-09-2022 End: 04-05-2024 Tobacco use and exposure Smokeless tobacco non-user [facility] Start: 06-11-2023 End: 11-12-2023 Tobacco use panel [facility] Adult Depression Screening Assessment 0 [facility] Start: 07-23-2021 Gender identity Identifies as female gender (finding) [facility] Start: 07-23-2021 Sexual orientation Heterosexual (fin ding) [facility] Start: 12-23-2021 End: 08-18-2024 Sex Female (finding) [facility] NEGATED: Highlighted row [facility] Functional Status Date Assessment Result Facility 12-13-2014 Are you deaf, or do you have serious difficulty hearing No 12/13/2014 2:40 PM EDT Niki Sheikh Ma [facility] 12-13-2014 Are you blind, or do you have serious difficulty seeing, even when wearing glasses No 12/13/2014 2:40 PM Niki Ferreira Ma [facility] 12-13-2014 Do you have serious difficulty walking or climbing stairs No 12/13/2014 2:40 PM KARINAT Niki Sheikh Ma [facility] 12-13-2014 Do you have difficul ty dressing or bathing No 12/13/2014 2:40 PM Niki Ferreira Ma [facility] 12-13-2014 Because of a physica l, mental, or emotional condition, do you have difficulty doing errands alone such as visiting a physician's office or shopping No 12/13/2014 2:40 PM Niki Ferreira Ma [facility] Mental Status Date Assessment Result Facility 12-13-2014 Because of a physica l, mental, or emotional condition, do you have serious difficulty concentrating, remembering, or making decisions No 12/13/2014 2:40 PM EDT Niki Sheikh Ma [facility] Clinical Notes 09-17-2006 to 09-03-2024 Marco Antonio Ardon APRN.SCANNER OPERATOR - 09/03/2024 3:00 PM EDTTelephone Encounter - Manan Gardner Papi - 05/12/2024 3:54 PM ESTTelephone Encounter - Manan Gardner Papi - 05/12/2024 3:54 PM ESTPatient Instructions Note Date & Type Note Facility 09-03-2024 History of Presen t illness Narrative Subjective HPI Nontoxic-appearing 39-year-old female presents urgent care chief complaint cough chest congestion sinus pressure fatigue. Duration of symptoms 1 week. Associated symptoms listed above. Presents today for evaluation. OTC medications none. Sick contact similar signs symptoms. Denies any chest pain hemoptysis or pleuritic pain. No high fevers. Past medical history prescription medications and allergies reviewed. .Patient presents with: Cough: With chest congestion & SOB with wheeze x1 week PAST MEDICAL HISTORY Diagnosis Date Abnormal glandular Papanicolaou smear of cervix Abn. Pap smear (cervix) Allergic rhinitis, cause unspecified Allergy, airborne subst Generalized anxiety disorder Anxiety, Generalized Hepatitis C PAST SURGICAL HISTORY Procedure Laterality Date DELIVERY ONLY , low cervical COLPOSCOPY CERVIX UPPER/ADJACENT VAGINA Colposcopy CONIZATION CERVIX W/WO D&C RPR ELTRD EXC LEEP-Cervix DILATION & CURETTAGE DX&/THER NONOBSTETRIC Dilation & curettage INDUCED HX TONSILLECTOMY PRIMARY/SECONDARY <AGE 12 Tonsillectomy ALLERGIES Patient has no known allergies. MEDICATIONS hydrOXYzine pamoate (VISTARIL) 50 mg capsule Take 50 mg by mouth. rOPINIRole (REQUIP) 1 mg tablet Take 1 mg by mouth once daily. multivitamin tablet Take 1 tablet by mouth once daily. SUBOXONE 8-2 mg film 2 Film once daily. (Patient not taking: Reported on 09/03/2024) citalopram (CELEXA) 20 mg tablet Take 1 tablet by mouth every morning. (Patient not taking: Reported on 09/03/2024) pantoprazole DR (PROTONIX) 40 mg tablet Take 1 tablet by mouth once daily. (Patient not taking: Reported on 09/03/2024) FAMILY HISTORY Problem Relation Age of Onset Hypertension Mother Thyroid Mother Hypothyroid Diabetes Mother GI Father GB Hypertension Father Lipids Father GI Sister GB No Known Problems Brother Arthritis Maternal Grandmother Heart Maternal Grandmother BYPASS SURGERY Lipids Maternal Grandmother Thyroid Maternal Grandmother Hypothyroid Diabetes Maternal Grandmother COPD Maternal Grandmother Lung Cancer Maternal Grandmother Lipids Maternal Grandfather Heart Paternal Grandmother ID Lung Cancer Paternal Grandmother Colon Cancer Paternal Grandfather Prostate Cancer Paternal Grandfather Thyroid Other MATERNAL 1ST COUSIN BORN WITHOUT THYROID Social History Tobacco Use Smoking status: Every Day Current packs/day: 1.00 Types: Cigarettes Smokeless tobacco: Never Vaping Use Vaping status: current everyday user Substance Use Topics Alcohol use: Not Currently Comment: Occasionally Drug use: Not Currently Types: Cocaine, Crystal Meth, Heroin, IV, Marijuana, Opiates Review of Systems Constitutional: Positive for malaise/fatigue. Negative for chills and fever. HENT: Positive for congestion and sinus pain. Negative for ear discharge, ear pain and sore throat. Eyes: Negative for blurred vision, pain, discharge and redness. Respiratory: Positive for cough and wheezing. Negative for hemoptysis, sputum production, shortness of breath and stridor. Cardiovascular: Negative for chest pain. Gastrointestinal: Negative for abdominal pain, diarrhea, nausea and vomiting. Musculoskeletal: Positive for myalgias. Skin: Negative for itching and rash. Neurological: Positive for headaches. Negative for dizziness. Objective Physical Exam Constitutional: General: She is not in acute distress. Appearance: She is not diaphoretic. HENT: Head: Normocephalic. Jaw: No trismus, tenderness, swelling or pain on movement. Nose: No congestion. Mouth/Throat: Mouth: Mucous membranes are moist. Pharynx: Oropharynx is clear. Uvula midline. No pharyngeal swelling, oropharyngeal exudate, posterior oropharyngeal erythema or uvula swelling. Eyes: Conjunctiva/sclera: Conjunctivae normal. Pupils: Pupils are equal, round, and reactive to light. Cardiovascular: Rate and Rhythm: Normal rate and regular rhythm. Heart sounds: Normal heart sounds. Pulmonary: Effort: Pulmonary effort is normal. No tachypnea, accessory muscle usage or respiratory distress. Breath sounds: No stridor. Wheezing present. No rhonchi or rales. Abdominal: General: There is no distension. Palpations: Abdomen is soft. Tenderness: There is no abdominal tenderness. There is no guarding or rebound. Musculoskeletal: Cervical back: Normal range of motion and neck supple. No edema, erythema, rigidity or tenderness. No pain with movement. Normal range of motion. Lymphadenopathy: Cervical: No cervical adenopathy. Skin: General: Skin is warm and dry. Neurological: Mental Status: She is alert and oriented to person, place, and time. ASSESSMENT/PLAN: 1. Wheezing - ICD9: 786.07, ICD10: R06.2 (primary diagnosis) - IPRATROPIUM 0.5 MG-ALBUTEROL 3 MG (2.5 MG BASE)/3 ML NEBULIZATION SOLN 2. Viral illness - ICD9: 079.99, ICD10: B34.9 3. Encounter for test, result unknown - ICD9: V72.40, ICD10: Z32.00 - HCG QUAL UR B/O hCG negative. - Discussed viral etiology and rationale for treatment. - Symptomatic treatment with prn analgesia - Supportive care with fluids and rest Breath sounds and improve post DuoNeb. Treat as viral etiology. No evidence of bacterial infection. Patient was educated on supportive therapies. Patient will follow up with primary care provider as needed. Patient was instructed to immediately proceed to emergency room for any new, worsening, or symptoms lasting longer than anticipated. The patient's clinical presentation is otherwise unremarkable at this time. Based on exam and clinical finding, the patient is stable for discharge. Plan of care was discussed with patient. Patient verbalizes understanding and agrees to plan of care. This note was generated using [employer] software. It may contain errors in wording, punctuation, or spelling. Marco Antonio Ardon APRN.SCANNER OPERATOR documented in this encounter [facility] 09-03-2024 Note HNO ID: [id number] Author: MARCO ANTONIO ARDON APRN.ANATOLY Service: ? Author Type: Nurse Practitioner Type: Progress Notes Filed: 09/03/2024 15:30 Note Text: Subjective HPI Nontoxic-appearing 39-year-old female presents urgent care chief complaint cough chest congestion sinus pressure fatigue. Duration of symptoms 1 week. Associated symptoms listed above. Presents today for evaluation. OTC medications none. Sick contact similar signs symptoms. Denies any chest pain hemoptysis or pleuritic pain. No high fevers. Past medical history prescription medications and allergies reviewed. .Patient presents with: Cough: With chest congestion AND SOB with wheeze x1 week PAST MEDICAL HISTORY Diagnosis Date Abnormal glandular Papanicolaou smear of cervix Abn. Pap smear (cervix) Allergic rhinitis, cause unspecified Allergy, airborne subst Generalized anxiety disorder Anxiety, Generalized Hepatitis C PAST SURGICAL HISTORY Procedure Laterality Date DELIVERY ONLY , low cervical COLPOSCOPY CERVIX UPPER/ADJACENT VAGINA Colposcopy CONIZATION CERVIX W/WO DANDC RPR ELTRD EXC LEEP-Cervix DILATION AND CURETTAGE DXAND/THER NONOBSTETRIC Dilation AND curettage INDUCED HX TONSILLECTOMY PRIMARY/SECONDARY Tonsillectomy ALLERGIES Patient has no known allergies. MEDICATIONS hydrOXYzine pamoate (VISTARIL) 50 mg capsule Take 50 mg by mouth. rOPINIRole (REQUIP) 1 mg tablet Take 1 mg by mouth once daily. multivitamin tablet Take 1 tablet by mouth once daily. SUBOXONE 8-2 mg film 2 Film once daily. (Patient not taking: Reported on 09/03/2024) citalopram (CELEXA) 20 mg tablet Take 1 tablet by mouth every morning. (Patient not taking: Reported on 09/03/2024) pantoprazole DR (PROTONIX) 40 mg tablet Take 1 tablet by mouth once daily. (Patient not taking: Reported on 09/03/2024) FAMILY HISTORY Problem Relation Age of Onset Hypertension Mother Thyroid Mother Hypothyroid Diabetes Mother GI Father GB Hypertension Father Lipids Father GI Sister GB No Known Problems Brother Arthritis Maternal Grandmother Heart Maternal Grandmother BYPASS SURGERY Lipids Maternal Grandmother Thyroid Maternal Grandmother Hypothyroid Diabetes Maternal Grandmother COPD Maternal Grandmother Lung Cancer Maternal Grandmother Lipids Maternal Grandfather Heart Paternal Grandmother ID Lung Cancer Paternal Grandmother Colon Cancer Paternal Grandfather Prostate Cancer Paternal Grandfather Thyroid Other MATERNAL 1ST COUSIN BORN WITHOUT THYROID Social History Tobacco Use Smoking status: Every Day Current packs/day: 1.00 Types: Cigarettes Smokeless tobacco: Never Vaping Use Vaping status: current everyday user Substance Use Topics Alcohol use: Not Currently Comment: Occasionally Drug use: Not Currently Types: Cocaine, Crystal Meth, Heroin, IV, Marijuana, Opiates Review of Systems Constitutional: Positive for malaise/fatigue. Negative for chills and fever. HENT: Positive for congestion and sinus pain. Negative for ear discharge, ear pain and sore throat. Eyes: Negative for blurred vision, pain, discharge and redness. Respiratory: Positive for cough and wheezing. Negative for hemoptysis, sputum production, shortness of breath and stridor. Cardiovascular: Negative for chest pain. Gastrointestinal: Negative for abdominal pain, diarrhea, nausea and vomiting. Musculoskeletal: Positive for myalgias. Skin: Negative for itching and rash. Neurological: Positive for headaches. Negative for dizziness. Objective Physical Exam Constitutional: General: She is not in acute distress. Appearance: She is not diaphoretic. HENT: Head: Normocephalic. Jaw: No trismus, tenderness, swelling or pain on movement. Nose: No congestion. Mouth/Throat: Mouth: Mucous membranes are moist. Pharynx: Oropharynx is clear. Uvula midline. No pharyngeal swelling, oropharyngeal exudate, posterior oropharyngeal erythema or uvula swelling. Eyes: Conjunctiva/sclera: Conjunctivae normal. Pupils: Pupils are equal, round, and reactive to light. Cardiovascular: Rate and Rhythm: Normal rate and regular rhythm. Heart sounds: Normal heart sounds. Pulmonary: Effort: Pulmonary effort is normal. No tachypnea, accessory muscle usage or respiratory distress. Breath sounds: No stridor. Wheezing present. No rhonchi or rales. Abdominal: General: There is no distension. Palpations: Abdomen is soft. Tenderness: There is no abdominal tenderness. There is no guarding or rebound. Musculoskeletal: Cervical back: Normal range of motion and neck supple. No edema, erythema, rigidity or tenderness. No pain with movement. Normal range of motion. Lymphadenopathy: Cervical: No cervical adenopathy. Skin: General: Skin is warm and dry. Neurological: Mental Status: She is alert and oriented to person, place, and time. ASSESSMENT/PLAN: 1. Wheezing - ICD9: 786 (more content not included)... [facility] 05-12-2024 Telephone encounter Note Name of caller: Genesis Bradford Contact phone number: [phone] Relationship to Patient: patient Provider: Dr. Miya Oconnell Practice: [facility] Chief Complaint/Reason for Call: Pt request a return call. Pt. states she has to work the next two days and wanted to see if this script for Suboxone can be filled today so she is not sick at work. 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 Best time of day caller can be reached: any Patient advised that office/PCP has 24-48 business hours to return their call: Yes [facility] 05-12-2024 Miscellaneous Notes Name of caller: Genesis Bradford Contact phone number: [phone] Relationship to Patient: patient Provider: Dr. Miya Oconnell Practice: [facility] Chief Complaint/Reason for Call: Pt request a return call. Pt. states she has to work the next two days and wanted to see if this script for Suboxone can be filled today so she is not sick at work. 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 Best time of day caller can be reached: any Patient advised that office/PCP has 24-48 business hours to return their call: Yes documented in this encounter [facility] 05-11-2024 History of Presen t illness Narrative Chief Complaint Patient presents with Drug / Alcohol Assessment I did spend ---31 minutes preparing for visit, counseling, providing discussion on recovery progress and treatment plan of patient, and management of prescription medications and future scheduling. Patient was seen today via Telehealth by agreement and consent. I used the following Telehealth technology: Audio and video capabilities. Patient location: Patient Location: Home. This patient encounter is appropriate and reasonable under the circumstances: Behavioral Health . The patient has been advised of the potential risks and limitations of this mode of treatment (including but not limited to the absence of in-person examination) and has agreed to be treated in a remote fashion in spite of them. Any and all of the patient's/patient's family's questions on this issue have been answered and I have made no promises or guarantees to the patient. The patient has also been advised to contact this office for worsening conditions or problems, and seek emergency medical treatment and/or call 911 if the patient deems either necessary. The patient stated that they are currently in the state [facility]. If the patient is a minor, permission has been obtained by the parent or guardian for the patient to receive medical care at this visit. HPI: Genesis Bradford, a 38 y.o. female, who returns for a follow-up MAT appointment. UDS 04/27 ok OARRS ok Tx pneumonia--on doxycyline Started on steroids Starting to feel better Picking up son First day back to work Cravings : denied Sleep: denied Anxiety: denied Side effects: denied New medications : denied Recovery status Maintaining sobriety: yes Treatment status: Completed treatment Past Medical History: Diagnosis Date Hepatitis C Current Outpatient Medications on File Prior to Visit Medication Sig Dispense Refill [DISCONTINUED] buprenorphine-naloxone (Suboxone) 8-2 MG [address]lingual film Place 1 Film under the tongue 2 times daily. 60 Film 0 No current facility-administered medications on file prior to visit. No Known Allergies Social History Socioeconomic History Marital status: Significant Other Spouse name: Not on file Number of children: Not on file Years of education: Not on file Highest education level: Not on file Occupational History Not on file Tobacco Use Smoking status: Every Day Smokeless tobacco: Not on file Substance and Sexual Activity Alcohol use: Not Currently Drug use: Yes Types: Methamphetamines Sexual activity: Not on file Other Topics Concern Not on file Social History Narrative Not on file Social Drivers of Health Financial Resource Strain: Not on File (05/14/2023) Received from [facility] Financial Resource Strain Financial Resource Strain: 0 Food Insecurity: Not on File (02/18/2024) Received from [facility] Food Insecurity Food: 0 Transportation Needs: Not on File (05/14/2023) Received from [facility] Transportation Needs Transportation: 0 Physical Activity: Not on File (05/14/2023) Received from [facility] Physical Activity Physical Activity: 0 Stress: Not on File (05/14/2023) Received from [facility] Stress Stress: 0 Social Connections: Not on File (02/17/2024) Received from [facility] Social Connections Connectedness: 0 Intimate Partner Violence: Not on file Housing Stability: Not on File (05/14/2023) Received from [facility] Housing Stability Housin No family history on file. Objective There were no vitals taken for this visit. Mental status Attitude: cooperative Orientation: oriented X 3 Mood: normal Affect: reactive, mood congruent, normal range Speech: clear, normal R/V/R Thought process: unremarkable Association: no loose associations Thought content: normal Psychotic thoughts: No hallucinations or suicidal ideation Impulse control: good Judgement and insight: good Memory recent, remote within normal limits Assessment: Opiate dependence in remission Plan Patient Goals: 1. Continue 12-step meeting attendance (goal of 2 per week). 2. Actively communicate with sponsor. 3. Take medication as directed and report any negative side effects or missed doses. 4. Report any illicit drug use to either the briefcase sewer or myself/my staff. 5. Keep medicine out of the reach of children. 6. Follow-up with recommended level of care. Interventions in Session: 1. Discussed patient's progress in their 12-step program. 2. Discussed progress in recovery and overall well-being. 3. Discussed stressors/triggers for a potential relapse & related coping mechanisms. Medication Management: Patient stable on current dose, will continue 16 mg Suboxone daily, reassess in 4 weeks. [x] Suboxone film [] Buprenorphine/naloxone tabs [] Subutex No orders of the defined types were placed in this encounter. New Medications Ordered This Visit Medications buprenorphine-naloxone (Suboxone) 8-2 MG per sublingual film Sig: Place 1 Film under the tongue 2 times daily. Do not start before May 14, 2024. Dispense: 60 Film Refill: 0 Follow up in about 4 weeks (around 06/08/2024). documented in this encounter [facility] 05-10-2024 History of Presen t illness Narrative Radiology Service Progress Note PATIENT NAME: Genesis Bradford DATE OF SERVICE: May 10, 2024 TIME: 3:17 PM PATIENT IDENTITY VERIFICATION COMPLETED USING TWO (2) IDENTIFIERS: Name and Date of confirmed by patient verbally. FALL SCREENING: Has the patient had 2 falls in the last year or 1 fall with injury or currently using an Ambulatory Assistive Device (Walker, Cane, Wheelchair, Crutches, etc.)? No PATIENT GENDER DATA: Female. status: : No status: NO. PATIENT RELEVANT IMPLANT DATA REVIEWED: Yes PATIENT PRESENTS WITH AN IMPLANTABLE OR ATTACHED EXTENSION SPECIALIST: No RADIOLOGY DEPARTMENT: General X-ray: Exam(s) Completed: Chest X-Ray PERIPHERAL IV DATA: Not applicable SIGNED BY: RT Christoph(David) May 10, 2024 3:17 PM documented in this encounter [facility] 05-10-2024 Note HNO ID: [id number] Author: LARA BATES RT(R) Service: ? Author Type: Cadd Drafter Type: Progress Notes Filed: 05/10/2024 15:23 Note Text: Radiology Service Progress Note PATIENT NAME: Genesis Bradford DATE OF SERVICE: May 10, 2024 TIME: 3:17 PM PATIENT IDENTITY VERIFICATION COMPLETED USING TWO (2) IDENTIFIERS: Name and Date of confirmed by patient verbally. FALL SCREENING: Has the patient had 2 falls in the last year or 1 fall with injury or currently using an Ambulatory Assistive Device (Walker, Cane, Wheelchair, Crutches, etc.)? No PATIENT GENDER DATA: Female. status: : No status: NO. PATIENT RELEVANT IMPLANT DATA REVIEWED: Yes PATIENT PRESENTS WITH AN IMPLANTABLE OR ATTACHED EXTENSION SPECIALIST: No RADIOLOGY DEPARTMENT: General X-ray: Exam(s) Completed: Chest X-Ray PERIPHERAL IV DATA: Not applicable SIGNED BY: RT Christoph(R) May 10, 2024 3:17 PM [facility] 05-10-2024 Note HNO ID: [id number] Author: MAURA HARRY APRN.SCANNER OPERATOR Service: ? Author Type: Nurse Practitioner Type: Progress Notes Filed: 05/10/2024 15:33 Note Text: CC: Patient presents with: Cough: Coughing x 4-5 days now and vomiting and not getting any better HPI: Genesis Bradford is a 38 year old female who presents to the office with complaint of respiratory symptoms and head congestion for a few days. Symptoms are worsening Associated symptoms includes vomiting . Denies fever, dyspnea, and diarrhea. Treatments tried include nothing so far. with no relief of symptoms. Sick contacts: unknown. History of asthma, frequent episodes of bronchitis, chronic bronchitis, bronchiectasis or COPD: No Smoker: smoker Seasonal/environmental allergies: No The ROS is otherwise negative. The patient's pmh, medications, allergies, and past visits are reviewed. PHYSICAL EXAM: BP 110/72 Pulse 79 Temp 36.6 ?C (97.9 ?F) (Tympanic) Resp 18 Wt 58.6 kg (129 lb 3 oz) LMP 12/17/2023 SpO2 96% BMI 22.89 kg/m? General appearance: alert, cooperative, pleasant, in no acute distress Head: Normocephalic Eyes: EOM's intact, conjunctiva pink and moist, no icterus, sclera white, non-injected Heart: Negative. RRR without obvious murmur, gallop, or rubs. No ectopy. Lungs: clear to auscultation, without rales or wheeze, good air exchange Abdomen: soft non tender PAST MEDICAL HISTORY Diagnosis Date Abnormal glandular Papanicolaou smear of cervix Abn. Pap smear (cervix) Allergic rhinitis, cause unspecified Allergy, airborne subst Generalized anxiety disorder Anxiety, Generalized Hepatitis C PAST SURGICAL HISTORY Procedure Laterality Date DELIVERY ONLY , low cervical COLPOSCOPY CERVIX UPPER/ADJACENT VAGINA Colposcopy CONIZATION CERVIX W/WO DANDC RPR ELTRD EXC LEEP-Cervix DILATION AND CURETTAGE DXAND/THER NONOBSTETRIC Dilation AND curettage INDUCED HX TONSILLECTOMY PRIMARY/SECONDARY Tonsillectomy ALLERGIES Patient has no known allergies. MEDICATIONS doxycycline (VIBRA-TABS) 100 mg tablet Take 1 tablet by mouth two times a day for 7 days. SUBOXONE 8-2 mg film 2 Film once daily. multivitamin tablet Take 1 tablet by mouth once daily. citalopram (CELEXA) 20 mg tablet Take 1 tablet by mouth every morning. pantoprazole DR (PROTONIX) 40 mg tablet Take 1 tablet by mouth once daily. FAMILY HISTORY Problem Relation Age of Onset Hypertension Mother Thyroid Mother Hypothyroid Diabetes Mother GI Father GB Hypertension Father Lipids Father GI Sister GB No Known Problems Brother Arthritis Maternal Grandmother Heart Maternal Grandmother BYPASS SURGERY Lipids Maternal Grandmother Thyroid Maternal Grandmother Hypothyroid Diabetes Maternal Grandmother COPD Maternal Grandmother Lung Cancer Maternal Grandmother Lipids Maternal Grandfather Heart Paternal Grandmother ID Lung Cancer Paternal Grandmother Colon Cancer Paternal Grandfather Prostate Cancer Paternal Grandfather Thyroid Other MATERNAL 1ST COUSIN BORN WITHOUT THYROID Social History Tobacco Use Smoking status: Every Day Current packs/day: 1.00 Types: Cigarettes Smokeless tobacco: Never Vaping Use Vaping status: current everyday user Substance Use Topics Alcohol use: Not Currently Comment: Occasionally Drug use: Not Currently Types: Cocaine, Crystal Meth, Heroin, IV, Marijuana, Opiates ASSESSMENT/PLAN: 1. Nausea - ICD9: 787.02, ICD10: R11.0 (primary diagnosis) 2. URI, acute - ICD9: 465.9, ICD10: J06.9 - COVID AND INFLUENZA A/B AND RSV PCR, ROUTINE 3. Acute cough - ICD9: 786.2, ICD10: R05.1 - XR CHEST 2V FRONTAL/LAT * * * * Physician Interpretation * * * * EXAMINATION: CHEST RADIOGRAPH (2 VIEW FRONTAL AND LATERAL) CLINICAL HISTORY: Acute cough MQ: XC2_6 EXAM DATE/TIME: 05/10/2024 3:24 PM COMPARISON: Chest x-ray dated 07/01/2013 RESULT: Lines, tubes, and devices: None. Lungs and pleura: No consolidation. No lung mass. No pleural effusion. No pneumothorax. Cardiomediastinal silhouette: Normal cardiomediastinal silhouette. Bones and soft tissues: Unremarkable. IMPRESSION IMPRESSION: No acute radiographic abnormality. Membership Correspondent: LINNETTE Transcribe Date/Time: May 10 2024 3:24P Dictated by : SALMA SINCLAIR MD Medrol dose pack for the cough . Potential red flag symptoms discussed with the patient. Reviewed appropriate action plan to take if red flag symptoms occur. Patient agreeable to treatment plan. Maura Harry APRN.[facility] 05-10-2024 History of Presen t illness Narrative CC: Patient presents with: Cough: Coughing x 4-5 days now and vomiting and not getting any better HPI: Genesis Bradford is a 38 year old female who presents to the office with complaint of respiratory symptoms and head congestion for a few days. Symptoms are worsening Associated symptoms includes vomiting . Denies fever, dyspnea, and diarrhea. Treatments tried include nothing so far. with no relief of symptoms. Sick contacts: unknown. History of asthma, frequent episodes of bronchitis, chronic bronchitis, bronchiectasis or COPD: No Smoker: smoker Seasonal/environmental allergies: No The ROS is otherwise negative. The patient's pmh, medications, allergies, and past visits are reviewed. PHYSICAL EXAM: BP 110/72 Pulse 79 Temp 36.6 C (97.9 F) (Tympanic) Resp 18 Wt 58.6 kg (129 lb 3 oz) LMP 12/17/2023 SpO2 96% BMI 22.89 kg/m General appearance: alert, cooperative, pleasant, in no acute distress Head: Normocephalic Eyes: EOM's intact, conjunctiva pink and moist, no icterus, sclera white, non-injected Heart: Negative. RRR without obvious murmur, gallop, or rubs. No ectopy. Lungs: clear to auscultation, without rales or wheeze, good air exchange Abdomen: soft non tender PAST MEDICAL HISTORY Diagnosis Date Abnormal glandular Papanicolaou smear of cervix Abn. Pap smear (cervix) Allergic rhinitis, cause unspecified Allergy, airborne subst Generalized anxiety disorder Anxiety, Generalized Hepatitis C PAST SURGICAL HISTORY Procedure Laterality Date DELIVERY ONLY , low cervical COLPOSCOPY CERVIX UPPER/ADJACENT VAGINA Colposcopy CONIZATION CERVIX W/WO D&C RPR ELTRD EXC LEEP-Cervix DILATION & CURETTAGE DX&/THER NONOBSTETRIC Dilation & curettage INDUCED HX TONSILLECTOMY PRIMARY/SECONDARY <AGE 12 Tonsillectomy ALLERGIES Patient has no known allergies. MEDICATIONS doxycycline (VIBRA-TABS) 100 mg tablet Take 1 tablet by mouth two times a day for 7 days. SUBOXONE 8-2 mg film 2 Film once daily. multivitamin tablet Take 1 tablet by mouth once daily. citalopram (CELEXA) 20 mg tablet Take 1 tablet by mouth every morning. pantoprazole DR (PROTONIX) 40 mg tablet Take 1 tablet by mouth once daily. FAMILY HISTORY Problem Relation Age of Onset Hypertension Mother Thyroid Mother Hypothyroid Diabetes Mother GI Father GB Hypertension Father Lipids Father GI Sister GB No Known Problems Brother Arthritis Maternal Grandmother Heart Maternal Grandmother BYPASS SURGERY Lipids Maternal Grandmother Thyroid Maternal Grandmother Hypothyroid Diabetes Maternal Grandmother COPD Maternal Grandmother Lung Cancer Maternal Grandmother Lipids Maternal Grandfather Heart Paternal Grandmother ID Lung Cancer Paternal Grandmother Colon Cancer Paternal Grandfather Prostate Cancer Paternal Grandfather Thyroid Other MATERNAL 1ST COUSIN BORN WITHOUT THYROID Social History Tobacco Use Smoking status: Every Day Current packs/day: 1.00 Types: Cigarettes Smokeless tobacco: Never Vaping Use Vaping status: current everyday user Substance Use Topics Alcohol use: Not Currently Comment: Occasionally Drug use: Not Currently Types: Cocaine, Crystal Meth, Heroin, IV, Marijuana, Opiates ASSESSMENT/PLAN: 1. Nausea - ICD9: 787.02, ICD10: R11.0 (primary diagnosis) 2. URI, acute - ICD9: 465.9, ICD10: J06.9 - COVID & INFLUENZA A/B & RSV PCR, ROUTINE 3. Acute cough - ICD9: 786.2, ICD10: R05.1 - XR CHEST 2V FRONTAL/LAT * * * * Physician Interpretation * * * * EXAMINATION: CHEST RADIOGRAPH (2 VIEW FRONTAL & LATERAL) CLINICAL HISTORY: Acute cough MQ: XC2_6 EXAM DATE/TIME: 05/10/2024 3:24 PM COMPARISON: Chest x-ray dated 07/01/2013 RESULT: Lines, tubes, and devices: None. Lungs and pleura: No consolidation. No lung mass. No pleural effusion. No pneumothorax. Cardiomediastinal silhouette: Normal cardiomediastinal silhouette. Bones and soft tissues: Unremarkable. IMPRESSION IMPRESSION: No acute radiographic abnormality. Membership Correspondent: LINNETTE Transcribe Date/Time: May 10 2024 3:24P Dictated by : SALMA SINCLAIR MD Medrol dose pack for the cough . Potential red flag symptoms discussed with the patient. Reviewed appropriate action plan to take if red flag symptoms occur. Patient agreeable to treatment plan. Maura Harry APRN.CNP documented in this encounter [facility] 05-09-2024 Telephone encounter Note Reviewed chart and exam Reached out, No answer. VM message left Patient can take the Doxy as prescribed Follow up with PCP [facility] Work Phone: 05-09-2024 Miscellaneous Notes Reviewed chart and exam Reached out, No answer. VM message left Patient can take the Doxy as prescribed Follow up with PCP Pt reports she was prescribed doxycycline in [facility], and reports the reading on the Rx states talk to your doctor if you have hx of liver disease. Reports she has hx of hep C and hep A. 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 Please advise pt. documented in this encounter [facility] 05-09-2024 Telephone encounter Note Pt reports she was prescribed doxycycline in [facility], and reports the reading on the Rx states talk to your doctor if you have hx of liver disease. Reports she has hx of hep C and hep A. 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 Please advise pt. [facility] 05-07-2024 Note HNO ID: [id number] Author: MAURA HARRY APRN.ANATOLY Service: ? Author Type: Nurse Practitioner Type: Progress Notes Filed: 05/07/2024 14:26 Note Text: CC: Patient presents with: Sinus Problem: Sinus problems x 2 days HPI: Genesis Bradford is a 38 year old female who presents to the office with complaint of chest congestion, head congestion, and cough, productive for a few days. Symptoms are staying the same. Associated symptoms includes facial pain/pressure and cough. Denies fever, wheezing, dyspnea, fatigue, nausea, vomiting , and diarrhea. Treatments tried include nothing so far. with no relief of symptoms. Sick contacts: unknown. History of asthma, frequent episodes of bronchitis, chronic bronchitis, bronchiectasis or COPD: No Smoker: No Seasonal/environmental allergies: No The ROS is otherwise negative. The patient's pmh, medications, allergies, and past visits are reviewed. PHYSICAL EXAM: BP 130/82 Pulse 96 Temp 36.9 ?C (98.4 ?F) (Tympanic) Resp 18 Wt 58.4 kg (128 lb 12 oz) LMP 12/17/2023 SpO2 98% BMI 22.81 kg/m? General appearance: alert, cooperative, pleasant, in no acute distress Head: Normocephalic Eyes: EOM's intact, conjunctiva pink and moist, no icterus, sclera white, non-injected Ears: Right ear: External ear/canal- Normal, TM - clear with good landmarks. Left ear: External ear/canal- Normal, TM - clear with good landmarks Oropharynx:moist without lesions, No erythema, exudates or tonsillar hypertrophy. Heart: Negative. RRR without obvious murmur, gallop, or rubs. No ectopy. Lungs: clear to auscultation, without rales or wheeze, good air exchange PAST MEDICAL HISTORY Diagnosis Date Abnormal glandular Papanicolaou smear of cervix Abn. Pap smear (cervix) Allergic rhinitis, cause unspecified Allergy, airborne subst Generalized anxiety disorder Anxiety, Generalized Hepatitis C PAST SURGICAL HISTORY Procedure Laterality Date DELIVERY ONLY , low cervical COLPOSCOPY CERVIX UPPER/ADJACENT VAGINA Colposcopy CONIZATION CERVIX W/WO DANDC RPR ELTRD EXC LEEP-Cervix DILATION AND CURETTAGE DXAND/THER NONOBSTETRIC Dilation AND curettage INDUCED HX TONSILLECTOMY PRIMARY/SECONDARY Tonsillectomy ALLERGIES Patient has no known allergies. MEDICATIONS SUBOXONE 8-2 mg film 2 Film once daily. multivitamin tablet Take 1 tablet by mouth once daily. citalopram (CELEXA) 20 mg tablet Take 1 tablet by mouth every morning. pantoprazole DR (PROTONIX) 40 mg tablet Take 1 tablet by mouth once daily. doxycycline (VIBRA-TABS) 100 mg tablet Take 1 tablet by mouth two times a day for 7 days. FAMILY HISTORY Problem Relation Age of Onset Hypertension Mother Thyroid Mother Hypothyroid Diabetes Mother GI Father GB Hypertension Father Lipids Father GI Sister GB No Known Problems Brother Arthritis Maternal Grandmother Heart Maternal Grandmother BYPASS SURGERY Lipids Maternal Grandmother Thyroid Maternal Grandmother Hypothyroid Diabetes Maternal Grandmother COPD Maternal Grandmother Lung Cancer Maternal Grandmother Lipids Maternal Grandfather Heart Paternal Grandmother ID Lung Cancer Paternal Grandmother Colon Cancer Paternal Grandfather Prostate Cancer Paternal Grandfather Thyroid Other MATERNAL 1ST COUSIN BORN WITHOUT THYROID Social History Tobacco Use Smoking status: Every Day Current packs/day: 1.00 Types: Cigarettes Smokeless tobacco: Never Vaping Use Vaping status: current everyday user Substance Use Topics Alcohol use: Not Currently Comment: Occasionally Drug use: Not Currently Types: Cocaine, Crystal Meth, Heroin, IV, Marijuana, Opiates ASSESSMENT/PLAN: 1. Respiratory infection - ICD9: 519.8, ICD10: J98.8 - DOXYCYCLINE HYCLATE 100 MG TABLET Prescription instructions reviewed with patient as applicable. Potential red flag symptoms discussed with the patient. Reviewed appropriate action plan to take if red flag symptoms occur. Patient agreeable to treatment plan. Maura Harry APRN.[facility] 05-07-2024 History of Presen t illness Narrative CC: Patient presents with: Sinus Problem: Sinus problems x 2 days HPI: Genesis Bradford is a 38 year old female who presents to the office with complaint of chest congestion, head congestion, and cough, productive for a few days. Symptoms are staying the same. Associated symptoms includes facial pain/pressure and cough. Denies fever, wheezing, dyspnea, fatigue, nausea, vomiting , and diarrhea. Treatments tried include nothing so far. with no relief of symptoms. Sick contacts: unknown. History of asthma, frequent episodes of bronchitis, chronic bronchitis, bronchiectasis or COPD: No Smoker: No Seasonal/environmental allergies: No The ROS is otherwise negative. The patient's pmh, medications, allergies, and past visits are reviewed. PHYSICAL EXAM: BP 130/82 Pulse 96 Temp 36.9 C (98.4 F) (Tympanic) Resp 18 Wt 58.4 kg (128 lb 12 oz) LMP 12/17/2023 SpO2 98% BMI 22.81 kg/m General appearance: alert, cooperative, pleasant, in no acute distress Head: Normocephalic Eyes: EOM's intact, conjunctiva pink and moist, no icterus, sclera white, non-injected Ears: Right ear: External ear/canal- Normal, TM - clear with good landmarks. Left ear: External ear/canal- Normal, TM - clear with good landmarks Oropharynx:moist without lesions, No erythema, exudates or tonsillar hypertrophy. Heart: Negative. RRR without obvious murmur, gallop, or rubs. No ectopy. Lungs: clear to auscultation, without rales or wheeze, good air exchange PAST MEDICAL HISTORY Diagnosis Date Abnormal glandular Papanicolaou smear of cervix Abn. Pap smear (cervix) Allergic rhinitis, cause unspecified Allergy, airborne subst Generalized anxiety disorder Anxiety, Generalized Hepatitis C PAST SURGICAL HISTORY Procedure Laterality Date DELIVERY ONLY , low cervical COLPOSCOPY CERVIX UPPER/ADJACENT VAGINA Colposcopy CONIZATION CERVIX W/WO D&C RPR ELTRD EXC LEEP-Cervix DILATION & CURETTAGE DX&/THER NONOBSTETRIC Dilation & curettage INDUCED HX TONSILLECTOMY PRIMARY/SECONDARY <AGE 12 Tonsillectomy ALLERGIES Patient has no known allergies. MEDICATIONS SUBOXONE 8-2 mg film 2 Film once daily. multivitamin tablet Take 1 tablet by mouth once daily. citalopram (CELEXA) 20 mg tablet Take 1 tablet by mouth every morning. pantoprazole DR (PROTONIX) 40 mg tablet Take 1 tablet by mouth once daily. doxycycline (VIBRA-TABS) 100 mg tablet Take 1 tablet by mouth two times a day for 7 days. FAMILY HISTORY Problem Relation Age of Onset Hypertension Mother Thyroid Mother Hypothyroid Diabetes Mother GI Father GB Hypertension Father Lipids Father GI Sister GB No Known Problems Brother Arthritis Maternal Grandmother Heart Maternal Grandmother BYPASS SURGERY Lipids Maternal Grandmother Thyroid Maternal Grandmother Hypothyroid Diabetes Maternal Grandmother COPD Maternal Grandmother Lung Cancer Maternal Grandmother Lipids Maternal Grandfather Heart Paternal Grandmother ID Lung Cancer Paternal Grandmother Colon Cancer Paternal Grandfather Prostate Cancer Paternal Grandfather Thyroid Other MATERNAL 1ST COUSIN BORN WITHOUT THYROID Social History Tobacco Use Smoking status: Every Day Current packs/day: 1.00 Types: Cigarettes Smokeless tobacco: Never Vaping Use Vaping status: current everyday user Substance Use Topics Alcohol use: Not Currently Comment: Occasionally Drug use: Not Currently Types: Cocaine, Crystal Meth, Heroin, IV, Marijuana, Opiates ASSESSMENT/PLAN: 1. Respiratory infection - ICD9: 519.8, ICD10: J98.8 - DOXYCYCLINE HYCLATE 100 MG TABLET Prescription instructions reviewed with patient as applicable. Potential red flag symptoms discussed with the patient. Reviewed appropriate action plan to take if red flag symptoms occur. Patient agreeable to treatment plan. Maura Harry APRN.ANATOLY documented in this encounter [facility] 04-13-2024 History of Presen t illness Narrative Chief Complaint Patient presents with Drug / Alcohol Assessment I did spend -31-- minutes preparing for visit, counseling, providing discussion on recovery progress and treatment plan of patient, and management of prescription medications and future scheduling. Patient was seen today via Telehealth by agreement and consent. I used the following Telehealth technology: Audio and video capabilities. Patient location: Patient Location: Home. This patient encounter is appropriate and reasonable under the circumstances: Behavioral Health . The patient has been advised of the potential risks and limitations of this mode of treatment (including but not limited to the absence of in-person examination) and has agreed to be treated in a remote fashion in spite of them. Any and all of the patient's/patient's family's questions on this issue have been answered and I have made no promises or guarantees to the patient. The patient has also been advised to contact this office for worsening conditions or problems, and seek emergency medical treatment and/or call 911 if the patient deems either necessary. The patient stated that they are currently in the [facility]. If the patient is a minor, permission has been obtained by the parent or guardian for the patient to receive medical care at this visit. HPI: Lucitacherry Kathia Bradford, a 38 y.o. female, who returns for a follow-up MAT appointment. UDS/--ordered OARRS ok In good spirits Very busy with school Cut back schedule at work Seeing POs as required Seeing POs Cravings : denied Sleep: denied Anxiety: denied Side effects: denied New medications : denied Recovery status Maintaining sobriety: yes Treatment status: Completed treatment Past Medical History: Diagnosis Date Hepatitis C Current Outpatient Medications on File Prior to Visit Medication Sig Dispense Refill [DISCONTINUED] buprenorphine-naloxone (Suboxone) 8-2 MG per sublingual film Place 1 Film under the tongue 2 times daily for 15 days. Do not start before March 29, 2024. 30 Film 0 No current facility-administered medications on file prior to visit. No Known Allergies Social History Socioeconomic History Marital status: Significant Other Spouse name: Not on file Number of children: Not on file Years of education: Not on file Highest education level: Not on file Occupational History Not on file Tobacco Use Smoking status: Every Day Smokeless tobacco: Not on file Substance and Sexual Activity Alcohol use: Not Currently Drug use: Yes Types: Methamphetamines Sexual activity: Not on file Other Topics Concern Not on file Social History Narrative Not on file Social Drivers of Health Financial Resource Strain: Not on File (05/14/2023) Received from [facility] Financial Resource Strain Financial Resource Strain: 0 Food Insecurity: Not on File (02/18/2024) Received from [facility] Food Insecurity Food: 0 Transportation Needs: Not on File (05/14/2023) Received from [facility] Transportation Needs Transportation: 0 Physical Activity: Not on File (05/14/2023) Received from [facility] Physical Activity Physical Activity: 0 Stress: Not on File (05/14/2023) Received from [facility] Stress Stress: 0 Social Connections: Not on File (02/17/2024) Received from [facility] Social Connections Connectedness: 0 Intimate Partner Violence: Not on file Housing Stability: Not on File (05/14/2023) Received from [facility] Housing Stability Housin No family history on file. Objective There were no vitals taken for this visit. Mental status Attitude: cooperative Orientation: oriented X 3 Mood: normal Affect: reactive, mood congruent, normal range Speech: clear, normal R/V/R Thought process: unremarkable Association: no loose associations Thought content: normal Psychotic thoughts: No hallucinations or suicidal ideation Impulse control: good Judgement and insight: good Memory recent, remote within normal limits Assessment: Opiate dependence in remission Plan Patient Goals: 1. Continue 12-step meeting attendance (goal of 2 per week). 2. Actively communicate with sponsor. 3. Take medication as directed and report any negative side effects or missed doses. 4. Report any illicit drug use to either the briefcase sewer or myself/my staff. 5. Keep medicine out of the reach of children. 6. Follow-up with recommended level of care. Interventions in Session: 1. Discussed patient's progress in their 12-step program. 2. Discussed progress in recovery and overall well-being. 3. Discussed stressors/triggers for a potential relapse & related coping mechanisms. Medication Management: Patient stable on current dose, will continue 16 mg Suboxone daily, reassess in 4 weeks. [x] Suboxone film [] Buprenorphine/naloxone tabs [] Subutex Orders Placed This Encounter Procedures MEDICATION ASSISTED TREATMENT PANEL New Medications Ordered This Visit Medications buprenorphine-naloxone (Suboxone) 8-2 MG per sublingual film Sig: Place 1 Film under the tongue 2 times daily. Dispense: 60 Film Refill: 0 Follow up in about 4 weeks (around 05/11/2024). documented in this encounter [facility] 04-06-2024 Telephone encounter Note Pt was notified of results & instructions, pt voiced understanding. Roberta Ferrer LPN [facility] 04-06-2024 Miscellaneous Notes Pt was notified of results & instructions, pt voiced understanding. Roberta Ferrer LPN phone busy. Olga Lidia Kerr MA Please inform patient that positive for vaginosis bacterial vaginosis. Medication sent to drug [facility].. Other vaginal swabs and blood work are pending. Marco Antonio Ardon APRN.SCANNER OPERATOR documented in this encounter [facility] 04-06-2024 Telephone encounter Note phone busy. Olga Lidia Kerr MA [facility] 04-06-2024 Telephone encounter Note Please inform patient that positive for vaginosis bacterial vaginosis. Medication sent to drug [facility].. Other vaginal swabs and blood work are pending. Marco Antonio Ardon APRN.SCANNER OPERATOR [facility] 04-05-2024 Note HNO ID: [id number] Author: GEENA RANGEL PA Service: ? Author Type: Physician Heavy Equipment Field Mechanic Type: Progress Notes Filed: 04/05/2024 19:27 Note Text: This note was created using [email or web address]. Subjective Genesis Bradford is a 38 year old female. HPI 38-year-old female presents for vomiting and diarrhea. Patient states she has had vomiting and diarrhea for the past several days. She denies eating anything out of the ordinary. Nobody else sick at home. No fevers, cough, sore throat or URI symptoms. She states diarrhea is improving. She only had 1 episode of vomiting today. Still able to eat and drink. No abdominal pain. Patient states her work wanted her to come in to be evaluated before she can return. Patient also requesting STD testing. She states she had a new sexual partner and would like tested for all STDs. She denies any pelvic pain, vaginal discharge, dysuria. No concern for -history of tubal ligation. No other complaint. PAST MEDICAL HISTORY Diagnosis Date Abnormal glandular Papanicolaou smear of cervix Abn. Pap smear (cervix) Allergic rhinitis, cause unspecified Allergy, airborne subst Generalized anxiety disorder Anxiety, Generalized Hepatitis C PAST SURGICAL HISTORY Procedure Laterality Date DELIVERY ONLY , low cervical COLPOSCOPY CERVIX UPPER/ADJACENT VAGINA Colposcopy CONIZATION CERVIX W/WO DANDC RPR ELTRD EXC LEEP-Cervix DILATION AND CURETTAGE DXAND/THER NONOBSTETRIC Dilation AND curettage INDUCED HX TONSILLECTOMY PRIMARY/SECONDARY Tonsillectomy ALLERGIES Patient has no known allergies. MEDICATIONS SUBOXONE 8-2 mg film 2 Film once daily. multivitamin tablet Take 1 tablet by mouth once daily. citalopram (CELEXA) 20 mg tablet Take 1 tablet by mouth every morning. pantoprazole DR (PROTONIX) 40 mg tablet Take 1 tablet by mouth once daily. FAMILY HISTORY Problem Relation Age of Onset Hypertension Mother Thyroid Mother Hypothyroid Diabetes Mother GI Father GB Hypertension Father Lipids Father GI Sister GB No Known Problems Brother Arthritis Maternal Grandmother Heart Maternal Grandmother BYPASS SURGERY Lipids Maternal Grandmother Thyroid Maternal Grandmother Hypothyroid Diabetes Maternal Grandmother COPD Maternal Grandmother Lung Cancer Maternal Grandmother Lipids Maternal Grandfather Heart Paternal Grandmother ID Lung Cancer Paternal Grandmother Colon Cancer Paternal Grandfather Prostate Cancer Paternal Grandfather Thyroid Other MATERNAL 1ST COUSIN BORN WITHOUT THYROID Social History Tobacco Use Smoking status: Every Day Current packs/day: 1.00 Types: Cigarettes Smokeless tobacco: Never Vaping Use Vaping status: current everyday user Substance Use Topics Alcohol use: Not Currently Comment: Occasionally Drug use: Not Currently Types: Cocaine, Crystal Meth, Heroin, IV, Marijuana, Opiates Review of Systems Constitutional: Negative for chills and fever. HENT: Negative for congestion, ear pain and sore throat. Respiratory: Negative for cough and shortness of breath. Cardiovascular: Negative for chest pain. Gastrointestinal: Positive for diarrhea, nausea and vomiting. Negative for abdominal pain. Genitourinary: Negative for pelvic pain, urgency, vaginal bleeding, vaginal discharge and vaginal pain. Objective BP (!) 139/49 Pulse 110 Temp 36.4 ?C (97.6 ?F) Resp 18 Wt 58 kg (127 lb 13.9 oz) LMP 12/17/2023 SpO2 99% BMI 22.66 kg/m? Physical Exam Vitals and nursing note reviewed. Exam conducted with a launch operator present. Constitutional: General: She is not in acute distress. Appearance: Normal appearance. She is not toxic-appearing. HENT: Nose: Nose normal. Mouth/Throat: Mouth: Mucous membranes are moist. Eyes: Conjunctiva/sclera: Conjunctivae normal. Cardiovascular: Rate and Rhythm: Normal rate and regular rhythm. Pulmonary: Effort: Pulmonary effort is normal. Breath sounds: Normal breath sounds. Abdominal: General: Abdomen is flat. Palpations: Abdomen is soft. Tenderness: There is no abdominal tenderness. There is no guarding or rebound. Genitourinary: Pubic Area: No rash. Vagina: Vaginal discharge present. Cervix: No friability or erythema. Adnexa: Right: No tenderness. Left: No tenderness. Comments: Small amount of physiologic discharge in vaginal vault. No cervical erythema. No adnexal tenderness. Skin: General: Skin is warm and dry. Neurological: Mental Status: She is alert. Assessment and Plan ASSESSMENT/PLAN: 1. Screening for STD (sexually transmitted disease) - ICD9: V74.5, ICD10: Z11.3 (primary diagnosis) - SYPHILIS TREPONEMAL W/REFLEX - HIV 1/2 COMBO WITH REFLEX TO DIFFERENTIATION - HEPATITIS C ANTIBODY IA WITH CONFIRMATION - HEPATITIS B SURFACE ANTIGEN - GONORRHEA/CHLAMYDIA NAAT - KEAGAN/TRICHOMONAS NAAT - BACTERIAL VAGINOSIS NAAT 2. Vomiting and diarrhea - ICD9 (more content not included)... [facility] 04-05-2024 History of Presen t illness Narrative This note was created using [employer]. Subjective Genesis Bradford is a 38 year old female. HPI 38-year-old female presents for vomiting and diarrhea. Patient states she has had vomiting and diarrhea for the past several days. She denies eating anything out of the ordinary. Nobody else sick at home. No fevers, cough, sore throat or URI symptoms. She states diarrhea is improving. She only had 1 episode of vomiting today. Still able to eat and drink. No abdominal pain. Patient states her work wanted her to come in to be evaluated before she can return. Patient also requesting STD testing. She states she had a new sexual partner and would like tested for all STDs. She denies any pelvic pain, vaginal discharge, dysuria. No concern for -history of tubal ligation. No other complaint. PAST MEDICAL HISTORY Diagnosis Date Abnormal glandular Papanicolaou smear of cervix Abn. Pap smear (cervix) Allergic rhinitis, cause unspecified Allergy, airborne subst Generalized anxiety disorder Anxiety, Generalized Hepatitis C PAST SURGICAL HISTORY Procedure Laterality Date DELIVERY ONLY , low cervical COLPOSCOPY CERVIX UPPER/ADJACENT VAGINA Colposcopy CONIZATION CERVIX W/WO D&C RPR ELTRD EXC LEEP-Cervix DILATION & CURETTAGE DX&/THER NONOBSTETRIC Dilation & curettage INDUCED HX TONSILLECTOMY PRIMARY/SECONDARY <AGE 11 Tonsillectomy ALLERGIES Patient has no known allergies. MEDICATIONS SUBOXONE 8-2 mg film 2 Film once daily. multivitamin tablet Take 1 tablet by mouth once daily. citalopram (CELEXA) 20 mg tablet Take 1 tablet by mouth every morning. pantoprazole DR (PROTONIX) 40 mg tablet Take 1 tablet by mouth once daily. FAMILY HISTORY Problem Relation Age of Onset Hypertension Mother Thyroid Mother Hypothyroid Diabetes Mother GI Father GB Hypertension Father Lipids Father GI Sister GB No Known Problems Brother Arthritis Maternal Grandmother Heart Maternal Grandmother BYPASS SURGERY Lipids Maternal Grandmother Thyroid Maternal Grandmother Hypothyroid Diabetes Maternal Grandmother COPD Maternal Grandmother Lung Cancer Maternal Grandmother Lipids Maternal Grandfather Heart Paternal Grandmother ID Lung Cancer Paternal Grandmother Colon Cancer Paternal Grandfather Prostate Cancer Paternal Grandfather Thyroid Other MATERNAL 1ST COUSIN BORN WITHOUT THYROID Social History Tobacco Use Smoking status: Every Day Current packs/day: 1.00 Types: Cigarettes Smokeless tobacco: Never Vaping Use Vaping status: current everyday user Substance Use Topics Alcohol use: Not Currently Comment: Occasionally Drug use: Not Currently Types: Cocaine, Crystal Meth, Heroin, IV, Marijuana, Opiates Review of Systems Constitutional: Negative for chills and fever. HENT: Negative for congestion, ear pain and sore throat. Respiratory: Negative for cough and shortness of breath. Cardiovascular: Negative for chest pain. Gastrointestinal: Positive for diarrhea, nausea and vomiting. Negative for abdominal pain. Genitourinary: Negative for pelvic pain, urgency, vaginal bleeding, vaginal discharge and vaginal pain. Objective BP (!) 139/49 Pulse 110 Temp 36.4 C (97.6 F) Resp 18 Wt 58 kg (127 lb 13.9 oz) LMP 12/17/2023 SpO2 99% BMI 22.66 kg/m Physical Exam Vitals and nursing note reviewed. Exam conducted with a launch operator present. Constitutional: General: She is not in acute distress. Appearance: Normal appearance. She is not toxic-appearing. HENT: Nose: Nose normal. Mouth/Throat: Mouth: Mucous membranes are moist. Eyes: Conjunctiva/sclera: Conjunctivae normal. Cardiovascular: Rate and Rhythm: Normal rate and regular rhythm. Pulmonary: Effort: Pulmonary effort is normal. Breath sounds: Normal breath sounds. Abdominal: General: Abdomen is flat. Palpations: Abdomen is soft. Tenderness: There is no abdominal tenderness. There is no guarding or rebound. Genitourinary: Pubic Area: No rash. Vagina: Vaginal discharge present. Cervix: No friability or erythema. Adnexa: Right: No tenderness. Left: No tenderness. Comments: Small amount of physiologic discharge in vaginal vault. No cervical erythema. No adnexal tenderness. Skin: General: Skin is warm and dry. Neurological: Mental Status: She is alert. Assessment and Plan ASSESSMENT/PLAN: 1. Screening for STD (sexually transmitted disease) - ICD9: V74.5, ICD10: Z11.3 (primary diagnosis) - SYPHILIS TREPONEMAL W/REFLEX - HIV 1/2 COMBO WITH REFLEX TO DIFFERENTIATION - HEPATITIS C ANTIBODY IA WITH CONFIRMATION - HEPATITIS B SURFACE ANTIGEN - GONORRHEA/CHLAMYDIA NAAT - KEAGAN/TRICHOMONAS NAAT - BACTERIAL VAGINOSIS NAAT 2. Vomiting and diarrhea - ICD9: 787.03, 787.91, ICD10: R11.10, R19.7 -Suspect viral. -Recommend bland diet, fluids, rest. -Work note given. -Follow-up if no improvement Diagnosis and treatment plan were discussed and questions were answered to the patient's satisfaction. Pt acknowledged understanding of concepts and follow up plan. Specific signs and symptoms that would indicate the need for higher level of care were discussed in detail warranting prompt ER evaluation. MARY Copeland documented in this encounter [facility] 03-16-2024 History of Presen t illness Narrative Chief Complaint Patient presents with Drug / Alcohol Assessment I did spend --31- minutes preparing for visit, counseling, providing discussion on recovery progress and treatment plan of patient, and management of prescription medications and future scheduling. Patient was seen today via Telehealth by agreement and consent. I used the following Telehealth technology: Audio and video capabilities. Patient location: Patient Location: Home. This patient encounter is appropriate and reasonable under the circumstances: Behavioral Health . The patient has been advised of the potential risks and limitations of this mode of treatment (including but not limited to the absence of in-person examination) and has agreed to be treated in a remote fashion in spite of them. Any and all of the patient's/patient's family's questions on this issue have been answered and I have made no promises or guarantees to the patient. The patient has also been advised to contact this office for worsening conditions or problems, and seek emergency medical treatment and/or call 911 if the patient deems either necessary. The patient stated that they are currently in the state [facility]. If the patient is a minor, permission has been obtained by the parent or guardian for the patient to receive medical care at this visit. HPI: Genesis Bradford, a 38 y.o. female, who returns for a follow-up MAT appointment. UDS 01/31 ok OARRS ok rx 02/27--03/30 RX 03/29-04/13 provided Busy at work--doing some overtime--did limit her overime hours Also going to school Seeing POs on regular basis Cravings : denied Sleep: denied Anxiety: denied Side effects: denied New medications : denied Recovery status Maintaining sobriety: yes Treatment status: Completed treatment Past Medical History: Diagnosis Date Hepatitis C Current Outpatient Medications on File Prior to Visit Medication Sig Dispense Refill [DISCONTINUED] buprenorphine-naloxone (Suboxone) 8-2 MG per sublingual film Place 1 Film under the tongue 2 times daily. 60 Film 0 No current facility-administered medications on file prior to visit. No Known Allergies Social History Socioeconomic History Marital status: Significant Other Spouse name: Not on file Number of children: Not on file Years of education: Not on file Highest education level: Not on file Occupational History Not on file Tobacco Use Smoking status: Every Day Smokeless tobacco: Not on file Substance and Sexual Activity Alcohol use: Not Currently Drug use: Yes Types: Methamphetamines Sexual activity: Not on file Other Topics Concern Not on file Social History Narrative Not on file Social Drivers of Health Financial Resource Strain: Not on File (05/14/2023) Received from [facility] Financial Resource Strain Financial Resource Strain: 0 Food Insecurity: Not on File (02/18/2024) Received from [facility] Food Insecurity Food: 0 Transportation Needs: Not on File (05/14/2023) Received from [facility] Transportation Needs Transportation: 0 Physical Activity: Not on File (05/14/2023) Received from [facility] Physical Activity Physical Activity: 0 Stress: Not on File (05/14/2023) Received from [facility] Stress Stress: 0 Social Connections: Not on File (02/17/2024) Received from [facility] Social Connections Connectedness: 0 Intimate Partner Violence: Not on file Housing Stability: Not on File (05/14/2023) Received from [facility] Housing Stability Housin No family history on file. Objective There were no vitals taken for this visit. Mental status Attitude: cooperative Orientation: oriented X 3 Mood: normal Affect: reactive, mood congruent, normal range Speech: clear, normal R/V/R Thought process: unremarkable Association: no loose associations Thought content: normal Psychotic thoughts: No hallucinations or suicidal ideation Impulse control: good Judgement and insight: good Memory recent, remote within normal limits Assessment: Opiate dependence in remission Plan Patient Goals: 1. Continue 12-step meeting attendance (goal of 2 per week). 2. Actively communicate with sponsor. 3. Take medication as directed and report any negative side effects or missed doses. 4. Report any illicit drug use to either the briefcase sewer or myself/my staff. 5. Keep medicine out of the reach of children. 6. Follow-up with recommended level of care. Interventions in Session: 1. Discussed patient's progress in their 12-step program. 2. Discussed progress in recovery and overall well-being. 3. Discussed stressors/triggers for a potential relapse & related coping mechanisms. Medication Management: Patient stable on current dose, will continue 16 mg Suboxone daily, reassess in 4 weeks. [x] Suboxone film [] Buprenorphine/naloxone tabs [] Subutex No orders of the defined types were placed in this encounter. New Medications Ordered This Visit Medications buprenorphine-naloxone (Suboxone) 8-2 MG per sublingual film Sig: Place 1 Film under the tongue 2 times daily for 15 days. Do not start before March 29, 2024. Dispense: 30 Film Refill: 0 Follow up in about 4 weeks (around 04/13/2024). documented in this encounter [facility] 02-17-2024 History of Presen t illness Narrative Chief Complaint Patient presents with Drug / Alcohol Assessment I did spend -31 minutes preparing for visit, counseling, providing discussion on recovery progress and treatment plan of patient, and management of prescription medications and future scheduling. Patient was seen today via Telehealth by agreement and consent. I used the following Telehealth technology: Audio and video capabilities. Patient location: work. This patient encounter is appropriate and reasonable under the circumstances: Behavioral Health . The patient has been advised of the potential risks and limitations of this mode of treatment (including but not limited to the absence of in-person examination) and has agreed to be treated in a remote fashion in spite of them. Any and all of the patient's/patient's family's questions on this issue have been answered and I have made no promises or guarantees to the patient. The patient has also been advised to contact this office for worsening conditions or problems, and seek emergency medical treatment and/or call 911 if the patient deems either necessary. The patient stated that they are currently in the state [facility]. If the patient is a minor, permission has been obtained by the parent or guardian for the patient to receive medical care at this visit. HPI: Genesis Bradford, a 38 y.o. female, who returns for a follow-up MAT appointment. 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 30 Film 0 No current facility-administered medications on file prior to visit. No Known Allergies Social History Socioeconomic History Marital status: Significant Other Spouse name: Not on file Number of children: Not on file Years of education: Not on file Highest education level: Not on file Occupational History Not on file Tobacco Use Smoking status: Every Day Smokeless tobacco: Not on file Substance and Sexual Activity Alcohol use: Not Currently Drug use: Yes Types: Methamphetamines Sexual activity: Not on file Other Topics Concern Not on file Social History Narrative Not on file Social Determinants of Health Financial Resource Strain: Not on File (05/14/2023) Received from [facility] Financial Resource Strain Financial Resource Strain: 0 Food Insecurity: Not on file (02/01/2024) Transportation Needs: Not on File (05/14/2023) Received from [facility] Transportation Needs Transportation: 0 Physical Activity: Not on File (05/14/2023) Received from [facility] Physical Activity Physical Activity: 0 Stress: Not on File (05/14/2023) Received from [facility] Stress Stress: 0 Social Connections: Not on File (05/14/2023) Received from [facility] Social Connections Social Connections and Isolation: 0 Intimate Partner Violence: Not on file Housing Stability: Not on File (05/14/2023) Received from [facility] Housing Stability Housin No family history on file. Objective There were no vitals taken for this visit. Mental status Attitude: cooperative Orientation: oriented X 3 Mood: normal Affect: reactive, mood congruent, normal range Speech: clear, normal R/V/R Thought process: unremarkable Association: no loose associations Thought content: normal Psychotic thoughts: No hallucinations or suicidal ideation Impulse control: good Judgement and insight: good Memory recent, remote within normal limits Assessment: Opiate dependence in remission Plan Patient Goals: 1. Continue 12-step meeting attendance (goal of 2 per week). 2. Actively communicate with sponsor. 3. Take medication as directed and report any negative side effects or missed doses. 4. Report any illicit drug use to either the briefcase sewer or myself/my staff. 5. Keep medicine out of the reach of children. 6. Follow-up with recommended level of care. Interventions in Session: 1. Discussed patient's progress in their 12-step program. 2. Discussed progress in recovery and overall well-being. 3. Discussed stressors/triggers for a potential relapse & related coping mechanisms. Medication Management: Patient stable on current dose, will continue 16 mg Suboxone daily, reassess in 2 weeks. [x] Suboxone film [] Buprenorphine/naloxone tabs [] Subutex No orders of the defined types were placed in this encounter. New Medications Ordered This Visit Medications buprenorphine-naloxone (Suboxone) 8-2 MG per sublingual film Sig: Place 1 Film under the tongue 2 times daily. Dispense: 60 Film Refill: 0 Follow up in about 4 weeks (around 03/16/2024). documented in this encounter [facility] 02-02-2024 History of Presen t illness Narrative Chief Complaint Patient presents with Drug / Alcohol Assessment I did spend --31- minutes preparing for visit, counseling, providing discussion on recovery progress and treatment plan of patient, and management of prescription medications and future scheduling. Patient was seen today via Telehealth by agreement and consent. I used the following Telehealth technology: Audio and video capabilities. Patient location: Patient Location: Home. This patient encounter is appropriate and reasonable under the circumstances: Behavioral Health . The patient has been advised of the potential risks and limitations of this mode of treatment (including but not limited to the absence of in-person examination) and has agreed to be treated in a remote fashion in spite of them. Any and all of the patient's/patient's family's questions on this issue have been answered and I have made no promises or guarantees to the patient. The patient has also been advised to contact this office for worsening conditions or problems, and seek emergency medical treatment and/or call 911 if the patient deems either necessary. The patient stated that they are currently in the [facility]. If the patient is a minor, permission has been obtained by the parent or guardian for the patient to receive medical care at this visit. HPI: Genesis Bradford, a 38 y.o. female, who returns for a follow-up MAT appointment. 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 28 Film 0 No current facility-administered medications on file prior to visit. No Known Allergies Social History Socioeconomic History Marital status: Significant Other Spouse name: Not on file Number of children: Not on file Years of education: Not on file Highest education level: Not on file Occupational History Not on file Tobacco Use Smoking status: Every Day Smokeless tobacco: Not on file Substance and Sexual Activity Alcohol use: Not Currently Drug use: Yes Types: Methamphetamines Sexual activity: Not on file Other Topics Concern Not on file Social History Narrative Not on file Social Determinants of Health Financial Resource Strain: Not on File (05/14/2023) Received from [facility] Financial Resource Strain Financial Resource Strain: 0 Food Insecurity: Not on file (02/01/2024) Transportation Needs: Not on File (05/14/2023) Received from [facility] Transportation Needs Transportation: 0 Physical Activity: Not on File (05/14/2023) Received from [facility] Physical Activity Physical Activity: 0 Stress: Not on File (05/14/2023) Received from [facility] Stress Stress: 0 Social Connections: Not on File (05/14/2023) Received from [facility] Social Connections Social Connections and Isolation: 0 Intimate Partner Violence: Not on file Housing Stability: Not on File (05/14/2023) Received from [facility] Housing Stability Housin No family history on file. Objective There were no vitals taken for this visit. Mental status Attitude: cooperative Orientation: oriented X 3 Mood: normal Affect: reactive, mood congruent, normal range Speech: clear, normal R/V/R Thought process: unremarkable Association: no loose associations Thought content: normal Psychotic thoughts: No hallucinations or suicidal ideation Impulse control: good Judgement and insight: good Memory recent, remote within normal limits Assessment: Opiate dependence in remission Plan Patient Goals: 1. Continue 12-step meeting attendance (goal of 2 per week). 2. Actively communicate with sponsor. 3. Take medication as directed and report any negative side effects or missed doses. 4. Report any illicit drug use to either the briefcase sewer or myself/my staff. 5. Keep medicine out of the reach of children. 6. Follow-up with recommended level of care. Interventions in Session: 1. Discussed patient's progress in their 12-step program. 2. Discussed progress in recovery and overall well-being. 3. Discussed stressors/triggers for a potential relapse & related coping mechanisms. Medication Management: Patient stable on current dose, will continue 16 mg Suboxone daily, reassess in 2 weeks. [x] Suboxone film [] Buprenorphine/naloxone tabs [] Subutex No orders of the defined types were placed in this encounter. New Medications Ordered This Visit Medications buprenorphine-naloxone (Suboxone) 8-2 MG per sublingual film Sig: Place 1 Film under the tongue 2 times daily for 15 days. Dispense: 30 Film Refill: 0 Follow up in about 2 weeks (around 02/16/2024). documented in this encounter [facility] 01-19-2024 History of Presen t illness Narrative Chief Complaint Patient presents with Drug / Alcohol Assessment I did spend --24- minutes preparing for visit, counseling, providing discussion on recovery progress and treatment plan of patient, and management of prescription medications and future scheduling. Patient was seen today via Telehealth by agreement and consent. I used the following Telehealth technology: Audio and video capabilities. Patient location: car. This patient encounter is appropriate and reasonable under the circumstances: Behavioral Health . The patient has been advised of the potential risks and limitations of this mode of treatment (including but not limited to the absence of in-person examination) and has agreed to be treated in a remote fashion in spite of them. Any and all of the patient's/patient's family's questions on this issue have been answered and I have made no promises or guarantees to the patient. The patient has also been advised to contact this office for worsening conditions or problems, and seek emergency medical treatment and/or call 911 if the patient deems either necessary. The patient stated that they are currently in the [facility]. If the patient is a minor, permission has been obtained by the parent or guardian for the patient to receive medical care at this visit. HPI: Genesis Bae [place], a 38 y.o. female, who returns for a follow-up MAT appointment. UDS 12/07 ok--UDS 01/17 Buprenorphine negative OARRS ok In good spirits Staying clean Going to work Started another job at [employer] Cravings : denied Sleep: denied Anxiety: denied Side effects: denied New medications : denied Recovery status Maintaining sobriety: yes Treatment status: Completed treatment Past Medical History: Diagnosis Date Hepatitis C Current Outpatient Medications on File Prior to Visit Medication Sig Dispense Refill [DISCONTINUED] buprenorphine-naloxone (Suboxone) 8-[address]ual film [address] 1 Film under the tongue 2 times daily for 14 days. 28 Film 0 No current facility-administered medications on file prior to visit. No Known Allergies Social History Socioeconomic History Marital status: Significant Other Spouse name: Not on file Number of children: Not on file Years of education: Not on file Highest education level: Not on file Occupational History Not on file Tobacco Use Smoking status: Every Day Smokeless tobacco: Not on file Substance and Sexual Activity Alcohol use: Not Currently Drug use: Yes Types: Methamphetamines Sexual activity: Not on file Other Topics Concern Not on file Social History Narrative Not on file Social Determinants of Health Financial Resource Strain: Not on File (05/14/2023) Received from [facility] Financial Resource Strain Financial Resource Strain: 0 Food Insecurity: Not on File (05/14/2023) Received from [facility] Food Insecurity Food: 0 Transportation Needs: Not on File (05/14/2023) Received from [facility] Transportation Needs Transportation: 0 Physical Activity: Not on File (05/14/2023) Received from [facility] Physical Activity Physical Activity: 0 Stress: Not on File (05/14/2023) Received from [facility] Stress Stress: 0 Social Connections: Not on File (05/14/2023) Received from [facility] Social Connections Social Connections and Isolation: 0 Intimate Partner Violence: Not on file Housing Stability: Not on File (05/14/2023) Received from [facility] Housing Stability Housin No family history on file. Objective There were no vitals taken for this visit. Mental status Attitude: cooperative Orientation: oriented X 3 Mood: normal Affect: reactive, mood congruent, normal range Speech: clear, normal R/V/R Thought process: unremarkable Association: no loose associations Thought content: normal Psychotic thoughts: No hallucinations or suicidal ideation Impulse control: good Judgement and insight: good Memory recent, remote within normal limits Assessment: Opiate dependence in remission Plan Patient Goals: 1. Continue 12-step meeting attendance (goal of 2 per week). 2. Actively communicate with sponsor. 3. Take medication as directed and report any negative side effects or missed doses. 4. Report any illicit drug use to either the briefcase sewer or myself/my staff. 5. Keep medicine out of the reach of children. 6. Follow-up with recommended level of care. Interventions in Session: 1. Discussed patient's progress in their 12-step program. 2. Discussed progress in recovery and overall well-being. 3. Discussed stressors/triggers for a potential relapse & related coping mechanisms. Medication Management: Patient stable on current dose, will continue 16 mg Suboxone daily, reassess in 2 weeks. [x] Suboxone film [] Buprenorphine/naloxone tabs [] Subutex Orders Placed This Encounter Procedures MEDICATION ASSISTED TREATMENT PANEL New Medications Ordered This Visit Medications buprenorphine-naloxone (Suboxone) 8-2 MG per sublingual film Sig: Place 1 Film under the tongue 2 times daily for 14 days. Dispense: 28 Film Refill: 0 Follow up in about 2 weeks (around 02/02/2024). documented in this encounter [facility] 01-19-2024 Telephone encounter Note Recent results, routed to you [facility] 01-19-2024 Miscellaneous Notes Recent results, routed to you Name of caller: Genesis Contact phone number: [phone] Relationship to Patient: patient Provider: Dr Oconnell Practice: [facility] Chief Complaint/Reason for Call: pt is calling in regards to her urine sample and is not able to come this week to leave a urine sample due to her finances and school. Her first paycheck is Thursday. She dropped a urine on with her PO. She is going this to leave a drop. She is asking if Dr Oconnell would like these results, before she is able to get to the office please advise. Best time of day caller can be reached: AM Patient advised that office/PCP has 24-48 business hours to return their call: Yes documented in this encounter [facility] 01-18-2024 Telephone encounter Note Name of caller: Genesis Contact phone number: [phone] Relationship to Patient: patient Provider: Dr Oconnell Practice: [facility] Chief Complaint/Reason for Call: pt is calling in regards to her urine sample and is not able to come this week to leave a urine sample due to her finances and school. Her first paycheck is Thursday. She dropped a urine on with her PO. She is going this to leave a drop. She is asking if Dr Oconnell would like these results, before she is able to get to the office please advise. Best time of day caller can be reached: AM Patient advised that office/PCP has 24-48 business hours to return their call: Yes [facility] 01-05-2024 History of Presen t illness Narrative Chief Complaint Patient presents with Drug / Alcohol Assessment I did spend -31-- minutes preparing for visit, counseling, providing discussion on recovery progress and treatment plan of patient, and management of prescription medications and future scheduling. Patient was seen today via Telehealth by agreement and consent. I used the following Telehealth technology: Audio and video capabilities. Patient location: Patient Location: Home. This patient encounter is appropriate and reasonable under the circumstances: Behavioral Health . The patient has been advised of the potential risks and limitations of this mode of treatment (including but not limited to the absence of in-person examination) and has agreed to be treated in a remote fashion in spite of them. Any and all of the patient's/patient's family's questions on this issue have been answered and I have made no promises or guarantees to the patient. The patient has also been advised to contact this office for worsening conditions or problems, and seek emergency medical treatment and/or call 911 if the patient deems either necessary. The patient stated that they are currently in the state [facility]. If the patient is a minor, permission has been obtained by the parent or guardian for the patient to receive medical care at this visit. HPI: Genesis Bradford, a 38 y.o. female, who returns for a follow-up MAT appointment. 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 28 Film 0 No current facility-administered medications on file prior to visit. No Known Allergies Social History Socioeconomic History Marital status: Significant Other Spouse name: Not on file Number of children: Not on file Years of education: Not on file Highest education level: Not on file Occupational History Not on file Tobacco Use Smoking status: Every Day Smokeless tobacco: Not on file Substance and Sexual Activity Alcohol use: Not Currently Drug use: Yes Types: Methamphetamines Sexual activity: Not on file Other Topics Concern Not on file Social History Narrative Not on file Social Determinants of Health Financial Resource Strain: Not on File (05/14/2023) Received from [facility] Financial Resource Strain Financial Resource Strain: 0 Food Insecurity: Not on File (05/14/2023) Received from [facility] Food Insecurity Food: 0 Transportation Needs: Not on File (05/14/2023) Received from [facility] Transportation Needs Transportation: 0 Physical Activity: Not on File (05/14/2023) Received from [facility] Physical Activity Physical Activity: 0 Stress: Not on File (05/14/2023) Received from [facility] Stress Stress: 0 Social Connections: Not on File (05/14/2023) Received from [facility] Social Connections Social Connections and Isolation: 0 Intimate Partner Violence: Not on file Housing Stability: Not on File (05/14/2023) Received from [facility] Housing Stability Housin No family history on file. Objective There were no vitals taken for this visit. Mental status Attitude: cooperative Orientation: oriented X 3 Mood: normal Affect: reactive, mood congruent, normal range Speech: clear, normal R/V/R Thought process: unremarkable Association: no loose associations Thought content: normal Psychotic thoughts: No hallucinations or suicidal ideation Impulse control: good Judgement and insight: good Memory recent, remote within normal limits Assessment: Opiate dependence in remission Plan Patient Goals: 1. Continue 12-step meeting attendance (goal of 2 per week). 2. Actively communicate with sponsor. 3. Take medication as directed and report any negative side effects or missed doses. 4. Report any illicit drug use to either the briefcase sewer or myself/my staff. 5. Keep medicine out of the reach of children. 6. Follow-up with recommended level of care. Interventions in Session: 1. Discussed patient's progress in their 12-step program. 2. Discussed progress in recovery and overall well-being. 3. Discussed stressors/triggers for a potential relapse & related coping mechanisms. Medication Management: Patient stable on current dose, will continue 16 mg Suboxone daily, reassess in 2 weeks. [x] Suboxone film [] Buprenorphine/naloxone tabs [] Subutex Orders Placed This Encounter Procedures MEDICATION ASSISTED TREATMENT PANEL New Medications Ordered This Visit Medications buprenorphine-naloxone (Suboxone) 8-2 MG per sublingual film Sig: Place 1 Film under the tongue 2 times daily for 14 days. Dispense: 28 Film Refill: 0 Follow up in about 2 weeks (around 01/19/2024). documented in this encounter [facility] 01-04-2024 Note HNO ID: [id number] Author: RENA DOWNEY MD Service: ? Author Type: Physician Type: Progress Notes Filed: 01/04/2024 13:53 Note Text: Genesis is a 38 year old Female who presents today for a colposcopy. The patient's last pap smear was ASCUS with positive HPV from October 2023. Patient has a history of abnormal pap: Yes. The patient has had prior treatment: LEEP. test: negative UNIVERSAL PROTOCOL / SAFETY CHECKLIST Procedure to be Performed: Colposcopy with Possible Biopsies Sign In: A Moment of CARE was completed. Personnel directly involved with the procedure wore the appropriate PPE (Personal Protective Equipment). Patient/Surrogate Stated/Verified: PATIENT VERIFIED(optional for EMERGENT procedures): Patient name, Date of , Relevant allergies, and The intended procedure Time Out Communication: Intended patient and procedure match the source documents. Consent documented and matches the intended procedure. Relevant labs, photos, and/or imaging studies have been reviewed. No implant(s) inserted. Sign Out: SIGN OUT (optional for EMERGENT procedures): All specimen containers correctly labeled. All instruments, equipment, possible retained foreign bodies accounted for. Post-procedure follow-up management communicated and Plan of Care Visit completed when applicable. PROCEDURE: EXTERNAL GENITALIA: Normal in appearance without lesions VAGINA: Normal in appearance without lesions CERVIX: Speculum placed in vagina and excellent visualization of cervix achieved. Cervix swabbed x 3 with 3% acetic acid solution. Cervix grossly normal. Squamocolumnar junction visualized. acetowhite changes noted -diffusely, punctations noted -none, whorled mosaicism (HPV changes) noted -none, mosaicism noted -none, and atypical vasculature noted -none. BIOPSY: Done at 6:00 and 12:00 ECC: done HEMOSTASIS: Obtained with silver nitrate and pressure Procedure Summary: Patient tolerated procedure well and colposcopy was adequate. ASSESSMENT: SCUS + HRHPV PLAN: Specimens labeled and sent to Pathology. Will notify patient of results in 1-2 weeks. Post-procedure instructions reviewed and written material given to the patient. patient prefers hyst if needs repeat excision and cervix is flush, would be concerned about being able to visualize cervix in future if repeat excisional procedure recommend HPV vaccines, she will consider requests STi screen Rena Downey MD [facility] 01-04-2024 History of Presen t illness Narrative Genesis is a 38 year old Female who presents today for a colposcopy. The patient's last pap smear was ASCUS with positive HPV from October 2023. Patient has a history of abnormal pap: Yes. The patient has had prior treatment: LEEP. test: negative UNIVERSAL PROTOCOL / SAFETY CHECKLIST Procedure to be Performed: Colposcopy with Possible Biopsies Sign In: A Moment of CARE was completed. Personnel directly involved with the procedure wore the appropriate PPE (Personal Protective Equipment). Patient/Surrogate Stated/Verified: PATIENT VERIFIED(optional for EMERGENT procedures): Patient name, Date of , Relevant allergies, and The intended procedure Time Out Communication: Intended patient and procedure match the source documents. Consent documented and matches the intended procedure. Relevant labs, photos, and/or imaging studies have been reviewed. No implant(s) inserted. Sign Out: SIGN OUT (optional for EMERGENT procedures): All specimen containers correctly labeled. All instruments, equipment, possible retained foreign bodies accounted for. Post-procedure follow-up management communicated and Plan of Care Visit completed when applicable. PROCEDURE: EXTERNAL GENITALIA: Normal in appearance without lesions VAGINA: Normal in appearance without lesions CERVIX: Speculum placed in vagina and excellent visualization of cervix achieved. Cervix swabbed x 3 with 3% acetic acid solution. Cervix grossly normal. Squamocolumnar junction visualized. acetowhite changes noted -diffusely, punctations noted -none, whorled mosaicism (HPV changes) noted -none, mosaicism noted -none, and atypical vasculature noted -none. BIOPSY: Done at 6:00 and 12:00 ECC: done HEMOSTASIS: Obtained with silver nitrate and pressure Procedure Summary: Patient tolerated procedure well and colposcopy was adequate. ASSESSMENT: SCUS + HRHPV PLAN: Specimens labeled and sent to Pathology. Will notify patient of results in 1-2 weeks. Post-procedure instructions reviewed and written material given to the patient. patient prefers hyst if needs repeat excision and cervix is flush, would be concerned about being able to visualize cervix in future if repeat excisional procedure recommend HPV vaccines, she will consider requests STi screen Rena Downey MD documented in this encounter [facility] 01-04-2024 Instructions Rena Downey MD - 01/04/2024 1:29 PM EDT Gardasil Gardasil is a vaccine to protect against Human Papillomavirus (HPV) types 6, 11, 16, 18, 31,33,45, 52, 58. These viruses cause cancer and precancerous lesions on the cervix (opening between vagina and uterus), in the vagina and on the vulva (skin around the outside of the vagina) as well as genital warts. The vaccine cannot cause these diseases and cannot treat them if already present. Gardasil works best if given before contact with HPV. Most people are exposed to HPV soon after starting sexual activity. The vaccine is recommended between the ages of 9 and 45. Gardasil does not protect against all strains of HPV. Women who receive the vaccine still need to have regular pelvic exams and cervical cancer screening with the pap smear. You should ask your doctor if Gardasil is right for you if you have a weakened immune system, a bleeding disorder, plan to become soon or have a current illness causing fever. Gardasil is not recommended for women. You should be sure your doctor is aware of any allergies you have and all medications and herbal supplements you take. Gardasil is given to those ages 9-14 in 2 doses at 0 and 8 months. In ages 15-45, three injections are given at 0,2,6 months. Common side effects include pain, redness, itching and swelling at the injection site, nausea, fever, dizziness and fainting. Rare but potentially serious reactions have been reported. These include allergic reaction, swollen glands, joint and muscle pain, weakness and Guillain-Trion syndrome. YOUR RECOVERY It may take a few weeks for your cervix to heal. While your cervix heals, you may have: - Vaginal bleeding (less than a normal menstrual period) - Mild cramping - A brown-black vaginal discharge (similar to coffee grounds) which is a result of the paste used to help stop bleeding from the procedure Do NOT put anything in the vagina for 1 week after your colposcopy if your doctor does a biopsy of your cervix. This includes sex, tampons, and douches. If you have any discomfort, you may take an over the counter pain medication (motrin, advil, ibuprofen, tylenol, etc). If this does not relieve your discomfort, contact your doctor's office for a prescription strength pain medication. It is okay to wear a sanitary pad until the discharge and spotting stops. RISKS Although problems seldom occur with colposcopy, there can be some complications. You may feel faint during and shortly after the procedure as well as have some bleeding and vaginal discharge after the procedure. There is also a risk of infection after the procedure. These complications are rare and can be easily treated. You should contact you doctor is you have any of the following: - Heavy bleeding (more than your normal period) - Bleeding with clots - Severe abdominal pain - Fever (more than 100.4F) - Foul smelling vaginal discharge RESULTS If a biopsy was taken, we will have the results of your biopsy in 1-2 weeks. If you do not hear the results of your biopsy after 2 weeks, please contact your physicians office for the results. Depending on the biopsy results, your doctor will determine your follow up plan which may include further testing or treatments. STAYING HEALTHY After the procedure, you will need to see your doctor for follow up visits during the year. At these visits your doctor will check the health of your cervix with a pap smear. After three normal pap smears, your doctor will allow you to return to having exams once a year. If you have another abnormal pap smear, you may need closer follow up for longer or you may need additional treatment. By making a few lifestyle changes after the procedure, you can help protect the health of your cervix: - Have regular pelvic exams and pap smears as ordered by your doctor. - Stop smoking as smoking increases your risk of developing a cancer of the cervix - If you have more than one sexual partner, limit your number of partners and use condoms to reduce your risks of STDs. If you have any additional questions, please contact your doctor's office. documented in this encounter [facility] 12-22-2023 History of Presen t illness Narrative Chief Complaint Patient presents with Drug / Alcohol Assessment I did spend --24- minutes preparing for visit, counseling, providing discussion on recovery progress and treatment plan of patient, and management of prescription medications and future scheduling. Patient was seen today via Telehealth by agreement and consent. I used the following Telehealth technology: Audio and video capabilities. Patient location: Patient Location: Home. This patient encounter is appropriate and reasonable under the circumstances: Behavioral Health . The patient has been advised of the potential risks and limitations of this mode of treatment (including but not limited to the absence of in-person examination) and has agreed to be treated in a remote fashion in spite of them. Any and all of the patient's/patient's family's questions on this issue have been answered and I have made no promises or guarantees to the patient. The patient has also been advised to contact this office for worsening conditions or problems, and seek emergency medical treatment and/or call 911 if the patient deems either necessary. The patient stated that they are currently in the state [facility]. If the patient is a minor, permission has been obtained by the parent or guardian for the patient to receive medical care at this visit. HPI: Genesis Bradford, a 38 y.o. female, who returns for a follow-up MAT appointment. UDS 12/07 ok OARRS ok Looking for job Will start school in month Seeing PO on regular basis Cravings : denied Sleep: denied Anxiety: denied Side effects: denied New medications : denied Recovery status Maintaining sobriety: yes Treatment status: Completed treatment Past Medical History: Diagnosis Date Hepatitis C Current Outpatient Medications on File Prior to Visit Medication Sig Dispense Refill [DISCONTINUED] buprenorphine-naloxone (Suboxone) 8-2 MG [address]lingual film Place 1 Film under the tongue 2 times daily for 14 days. 28 Film 0 No current facility-administered medications on file prior to visit. No Known Allergies Social History Socioeconomic History Marital status: Significant Other Spouse name: Not on file Number of children: Not on file Years of education: Not on file Highest education level: Not on file Occupational History Not on file Tobacco Use Smoking status: Every Day Smokeless tobacco: Not on file Substance and Sexual Activity Alcohol use: Not Currently Drug use: Yes Types: Methamphetamines Sexual activity: Not on file Other Topics Concern Not on file Social History Narrative Not on file Social Determinants of Health Financial Resource Strain: Not on File (05/14/2023) Received from [facility] Financial Resource Strain Financial Resource Strain: 0 Food Insecurity: Not on File (05/14/2023) Received from [facility] Food Insecurity Food: 0 Transportation Needs: Not on File (05/14/2023) Received from [facility] Transportation Needs Transportation: 0 Physical Activity: Not on File (05/14/2023) Received from [facility] Physical Activity Physical Activity: 0 Stress: Not on File (05/14/2023) Received from [facility] Stress Stress: 0 Social Connections: Not on File (05/14/2023) Received from [facility] Social Connections Social Connections and Isolation: 0 Intimate Partner Violence: Not on file Housing Stability: Not on File (05/14/2023) Received from [facility] Housing Stability Housin No family history on file. Objective There were no vitals taken for this visit. Mental status Attitude: cooperative Orientation: oriented X 3 Mood: normal Affect: reactive, mood congruent, normal range Speech: clear, normal R/V/R Thought process: unremarkable Association: no loose associations Thought content: normal Psychotic thoughts: No hallucinations or suicidal ideation Impulse control: good Judgement and insight: good Memory recent, remote within normal limits Assessment: Opiate dependence in remission Plan Patient Goals: 1. Continue 12-step meeting attendance (goal of 2 per week). 2. Actively communicate with sponsor. 3. Take medication as directed and report any negative side effects or missed doses. 4. Report any illicit drug use to either the briefcase sewer or myself/my staff. 5. Keep medicine out of the reach of children. 6. Follow-up with recommended level of care. Interventions in Session: 1. Discussed patient's progress in their 12-step program. 2. Discussed progress in recovery and overall well-being. 3. Discussed stressors/triggers for a potential relapse & related coping mechanisms. Medication Management: Patient stable on current dose, will continue 16 mg Suboxone daily, reassess in 2 weeks. [x] Suboxone film [] Buprenorphine/naloxone tabs [] Subutex No orders of the defined types were placed in this encounter. New Medications Ordered This Visit Medications buprenorphine-naloxone (Suboxone) 8-2 MG per sublingual film Sig: Place 1 Film under the tongue 2 times daily for 14 days. Dispense: 28 Film Refill: 0 Follow up in about 2 weeks (around 01/05/2024). documented in this encounter [facility] 12-08-2023 History of Presen t illness Narrative Chief Complaint Patient presents with Drug / Alcohol Assessment I did spend -31-- minutes preparing for visit, counseling, providing discussion on recovery progress and treatment plan of patient, and management of prescription medications and future scheduling. Genesis Bae Sanchez, a 38 y.o. female, who returns for a follow-up MAT appointment. UDS6/ ok--provided OARRS ok Ill last week --missed appt Staying clean Remains in trauma therapy--may hold off for now Sees 2 POs weekly--provides UDS regulerly Looking for work Cravings : denied Sleep: denied Anxiety: denied Side effects: denied New medications : denied Recovery status Maintaining sobriety: yes Treatment status: Completed treatment Past Medical History: Diagnosis Date Hepatitis C Current Outpatient Medications on File Prior to Visit Medication Sig Dispense Refill [DISCONTINUED] buprenorphine-naloxone (Suboxone) 8-[address]lingual film Place 1 Film under the tongue 2 times daily for 14 days. 28 Film 0 No current facility-administered medications on file prior to visit. No Known Allergies Social History Socioeconomic History Marital status: Significant Other Spouse name: Not on file Number of children: Not on file Years of education: Not on file Highest education level: Not on file Occupational History Not on file Tobacco Use Smoking status: Every Day Smokeless tobacco: Not on file Substance and Sexual Activity Alcohol use: Not Currently Drug use: Yes Types: Methamphetamines Sexual activity: Not on file Other Topics Concern Not on file Social History Narrative Not on file Social Determinants of Health Financial Resource Strain: Not on File (05/14/2023) Received from [facility] Financial Resource Strain Financial Resource Strain: 0 Food Insecurity: Not on File (05/14/2023) Received from [facility] Food Insecurity Food: 0 Transportation Needs: Not on File (05/14/2023) Received from [facility] Transportation Needs Transportation: 0 Physical Activity: Not on File (05/14/2023) Received from [facility] Physical Activity Physical Activity: 0 Stress: Not on File (05/14/2023) Received from [facility] Stress Stress: 0 Social Connections: Not on File (05/14/2023) Received from [facility] Social Connections Social Connections and Isolation: 0 Intimate Partner Violence: Not on file Housing Stability: Not on File (05/14/2023) Received from [facility] Housing Stability Housin No family history on file. Objective There were no vitals taken for this visit. Mental status Attitude: cooperative Orientation: oriented X 3 Mood: normal Affect: reactive, mood congruent, normal range Speech: clear, normal R/V/R Thought process: unremarkable Association: no loose associations Thought content: normal Psychotic thoughts: No hallucinations or suicidal ideation Impulse control: good Judgement and insight: good Memory recent, remote within normal limits Assessment: Opiate dependence in remission Plan Patient Goals: 1. Continue 12-step meeting attendance (goal of 2 per week). 2. Actively communicate with sponsor. 3. Take medication as directed and report any negative side effects or missed doses. 4. Report any illicit drug use to either the briefcase sewer or myself/my staff. 5. Keep medicine out of the reach of children. 6. Follow-up with recommended level of care. Interventions in Session: 1. Discussed patient's progress in their 12-step program. 2. Discussed progress in recovery and overall well-being. 3. Discussed stressors/triggers for a potential relapse & related coping mechanisms. Medication Management: Patient stable on current dose, will continue 16 mg Suboxone daily, reassess in 2 weeks. [x] Suboxone film [] Buprenorphine/naloxone tabs [] Subutex Orders Placed This Encounter Procedures MEDICATION ASSISTED TREATMENT PANEL New Medications Ordered This Visit Medications buprenorphine-naloxone (Suboxone) 8-2 MG per sublingual film Sig: Place 1 Film under the tongue 2 times daily for 14 days. Dispense: 28 Film Refill: 0 Follow up in about 2 weeks (around 12/22/2023). documented in this encounter [facility] 11-30-2023 Telephone encounter Note Pt returned call and was given results and assisted to schedule colposcopy. Sandy Cortez LPN [facility] 11-30-2023 Miscellaneous Notes Pt returned call and was given results and assisted to schedule colposcopy. Sandy Cortez LPN Called and patient answered. States she will have to call back to discuss results. She is unaware of result at this time yet. [id number] message also sent. Sue Cotter, CHRISTI Pap ASCUS and HPV+, she will need a colp done. Talia Landry APRN.ANATOLY documented in this encounter [facility] 11-30-2023 Telephone encounter Note Called and patient answered. States she will have to call back to discuss results. She is unaware of result at this time yet. [employer] message also sent. Sue Cotter RN [facility] 11-30-2023 Telephone encounter Note Pap ASCUS and HPV+, she will need a colp done. Talia Landry APRN.ANATOLY [facility] 11-18-2023 History of Presen t illness Narrative Chief Complaint Patient presents with Drug / Alcohol Assessment I did spend --31- minutes preparing for visit, counseling, providing discussion on recovery progress and treatment plan of patient, and management of prescription medications and future scheduling. HPI: Durgalorraine Bradford, a 38 y.o. female, who returns for a follow-up MAT appointment. UDS 11/10 ok OARRS ok The patient is in good spirits. She states that she has been clean since meeting with me last week. She is hopeful that she can be placed back on Suboxone. She did provide verification of her treatment at [facility]. She was admitted to their program April 29 and discharged on October 06. She continues in counseling at [facility] She is currently living with her parents. She is attending [employer] [facility] [place]. There are legal issues pending with [facility] courts-she is currently on probation. At this point patient will be placed on Suboxone 8 mg twice daily for 14 days and will be reassessed at that point in time in the office. Cravings : denied Sleep: denied Anxiety: denied Side effects: denied New medications : denied Recovery status Maintaining sobriety: yes Treatment status: Completed treatment Past Medical History: Diagnosis Date Hepatitis C No current outpatient medications on file prior to visit. No current facility-administered medications on file prior to visit. No Known Allergies Social History Socioeconomic History Marital status: Single Spouse name: Not on file Number of children: Not on file Years of education: Not on file Highest education level: Not on file Occupational History Not on file Tobacco Use Smoking status: Every Day Smokeless tobacco: Not on file Substance and Sexual Activity Alcohol use: Not Currently Drug use: Yes Types: Methamphetamines Sexual activity: Not on file Other Topics Concern Not on file Social History Narrative Not on file Social Determinants of Health Financial Resource Strain: Not on File (05/14/2023) Received from [facility] Financial Resource Strain Financial Resource Strain: 0 Food Insecurity: Not on File (05/14/2023) Received from [facility] Food Insecurity Food: 0 Transportation Needs: Not on File (05/14/2023) Received from [facility] Transportation Needs Transportation: 0 Physical Activity: Not on File (05/14/2023) Received from [facility] Physical Activity Physical Activity: 0 Stress: Not on File (05/14/2023) Received from [facility] Stress Stress: 0 Social Connections: Not on File (05/14/2023) Received from [facility] Social Connections Social Connections and Isolation: 0 Intimate Partner Violence: Not on file Housing Stability: Not on File (05/14/2023) Received from [facility] Housing Stability Housin No family history on file. Objective There were no vitals taken for this visit. Mental status Attitude: cooperative Orientation: oriented X 3 Mood: normal Affect: reactive, mood congruent, normal range Speech: clear, normal R/V/R Thought process: unremarkable Association: no loose associations Thought content: normal Psychotic thoughts: No hallucinations or suicidal ideation Impulse control: good Judgement and insight: good Memory recent, remote within normal limits Assessment: Opiate dependence in remission Plan Patient Goals: 1. Continue 12-step meeting attendance (goal of 2 per week). 2. Actively communicate with sponsor. 3. Take medication as directed and report any negative side effects or missed doses. 4. Report any illicit drug use to either the briefcase sewer or myself/my staff. 5. Keep medicine out of the reach of children. 6. Follow-up with recommended level of care. Interventions in Session: 1. Discussed patient's progress in their 12-step program. 2. Discussed progress in recovery and overall well-being. 3. Discussed stressors/triggers for a potential relapse & related coping mechanisms. Medication Management: Patient stable on current dose, will continue 16 mg Suboxone daily, reassess in 1 weeks. [x] Suboxone film [] Buprenorphine/naloxone tabs [] Subutex Orders Placed This Encounter Procedures MEDICATION ASSISTED TREATMENT PANEL New Medications Ordered This Visit Medications buprenorphine-naloxone (Suboxone) 8-2 MG per sublingual film Sig: Place 1 Film under the tongue 2 times daily for 14 days. Dispense: 28 Film Refill: 0 Follow up in about 2 weeks (around 12/02/2023). documented in this encounter [facility] 11-12-2023 Note HNO ID: [id number] Author: TALIA ALNDRY APRN.SCANNER OPERATOR Service: ? Author Type: Nurse Practitioner Type: Progress Notes Filed: 11/12/2023 16:30 Note Text: Bruise Trimmer offered: Patient declinesDelores Hurtado is a 38 year old who presents for an annual gynecologic exam without complaints. Menses: cycles every 25-30 days and 3-4 days of flow. Contraception: tubal sterilization HPV vaccine: No Last Pap: 06/16/2022 normal HPV: 06/13/2022 positive History of abnormal pap: Yes h/o leep Last mammogram: never Sexually active: Yes OB History T1 L3 SAB0 IAB1 Ectopic0 Multiple0 Live Births3 Account Management Assistant History LMP: 10/27/2023, Having periods Age at Menarche: Age at First : Age at Menopause: Account Management Assistant History Comments: Sexual Activity: Yes; Male Contraception: Tubal Ligation PAST MEDICAL HISTORY Diagnosis Date Abnormal glandular Papanicolaou smear of cervix Abn. Pap smear (cervix) Allergic rhinitis, cause unspecified Allergy, airborne subst Generalized anxiety disorder Anxiety, Generalized Hepatitis C PAST SURGICAL HISTORY Procedure Laterality Date DELIVERY ONLY , low cervical COLPOSCOPY CERVIX UPPER/ADJACENT VAGINA Colposcopy CONIZATION CERVIX W/WO DANDC RPR ELTRD EXC LEEP-Cervix DILATION AND CURETTAGE DXAND/THER NONOBSTETRIC Dilation AND curettage INDUCED HX TONSILLECTOMY PRIMARY/SECONDARY Tonsillectomy FAMILY HISTORY Problem Relation Age of Onset Hypertension Mother Thyroid Mother Hypothyroid Diabetes Mother GI Father GB Hypertension Father Lipids Father GI Sister GB No Known Problems Brother Arthritis Maternal Grandmother Heart Maternal Grandmother BYPASS SURGERY Lipids Maternal Grandmother Thyroid Maternal Grandmother Hypothyroid Diabetes Maternal Grandmother COPD Maternal Grandmother Lung Cancer Maternal Grandmother Lipids Maternal Grandfather Heart Paternal Grandmother ID Lung Cancer Paternal Grandmother Colon Cancer Paternal Grandfather Prostate Cancer Paternal Grandfather Thyroid Other MATERNAL 1ST COUSIN BORN WITHOUT THYROID SOCIAL HISTORY Social History Tobacco Use Smoking status: Every Day Packs/day: 1 Types: Cigarettes Smokeless tobacco: Never Vaping Use Vaping Use: current everyday user Substance Use Topics Alcohol use: Not Currently Comment: Occasionally Drug use: Not Currently Types: Cocaine, Crystal Meth, Heroin, IV, Marijuana, Opiates REVIEW OF SYSTEMS Abdomen: No abdominal pain, nausea, vomiting, diarrhea, or constipation. No bloating, early satiety, indigestion, or increased flatulence. Bladder: No dysuria, gross hematuria, urinary frequency, urinary urgency, or incontinence. Breast: No breast lumps, nipple d/c, overlying skin changes, redness or skin retraction. Allergies and current medication updated:Yes EXAM: BP 100/58 Ht 5' 2.992 (1.60m) Wt 124 lb 6.4 oz (56.4kg) LMP 10/27/2023 BMI 22.04 kg/(m2). GENERAL: pleasant, female in no apparent distress HEENT: Normocephalic, atraumatic, mucus membranes moist, and no lesions NECK: Supple, full range of motion, no adenopathy, and thyroid normal DERMATOLOGY: Normal, without lesions, non-icteric, and non-hirsute BREAST: soft, non-tender, symmetric, no dominant mass, normal nipple-areolar complex, no lymphadenopathy, and no nipple discharge CHEST: Normal inspiratory effort ABDOMEN: soft, non-tender, and no masses PELVIC: external genitalia normal, normal Bartholin's glands, urethra, [place]'s glands, no vulvar lesions, no cervical lesions, good vaginal support, physiologic discharge present, normal appearing perineal body and perianal region BIMANUAL: uterus normal size, shape and consistency, no adnexal masses, and non-tender RECTOVAGINAL: deferred. NEURO: alert and oriented x3,exam grossly non-focal EXTREMITIES: normal ASSESSMENT/PLAN: 1) Health maintenance: Pap done with HPV. Mammogram starting age 40. Nutrition, exercise and routine health maintenance exams reviewed. Calcium/Vitamin D supplementation information provided. 2) Contraception: tubal sterilization. Contraceptive options reviewed and information provided. 3) STD screening: Declined STD check. 4) Follow up one year or sooner as needed 5) [facility] ordered- shai has a dx of diabetes on her record but pt states she has never been dx w/ that. Reorder her meds, she is trying to find a new PCP Talia Landry APRN.ANATOLY [facility] 11-12-2023 History of Presen t illness Narrative Bruise Trimmer offered: Patient declines. Genesis is a 38 year old who presents for an annual gynecologic exam without complaints. Menses: cycles every 25-30 days and 3-4 days of flow. Contraception: tubal sterilization HPV vaccine: No Last Pap: 06/16/2022 normal HPV: 06/13/2022 positive History of abnormal pap: Yes h/o leep Last mammogram: never Sexually active: Yes OB History T1 L3 SAB0 IAB1 Ectopic0 Multiple0 Live Births3 Account Management Assistant History LMP: 10/27/2023, Having periods Age at Menarche: Age at First : Age at Menopause: Account Management Assistant History Comments: Sexual Activity: Yes; Male Contraception: Tubal Ligation PAST MEDICAL HISTORY Diagnosis Date Abnormal glandular Papanicolaou smear of cervix Abn. Pap smear (cervix) Allergic rhinitis, cause unspecified Allergy, airborne subst Generalized anxiety disorder Anxiety, Generalized Hepatitis C PAST SURGICAL HISTORY Procedure Laterality Date DELIVERY ONLY , low cervical COLPOSCOPY CERVIX UPPER/ADJACENT VAGINA Colposcopy CONIZATION CERVIX W/WO D&C RPR ELTRD EXC LEEP-Cervix DILATION & CURETTAGE DX&/THER NONOBSTETRIC Dilation & curettage INDUCED HX TONSILLECTOMY PRIMARY/SECONDARY <AGE 12 Tonsillectomy FAMILY HISTORY Problem Relation Age of Onset Hypertension Mother Thyroid Mother Hypothyroid Diabetes Mother GI Father GB Hypertension Father Lipids Father GI Sister GB No Known Problems Brother Arthritis Maternal Grandmother Heart Maternal Grandmother BYPASS SURGERY Lipids Maternal Grandmother Thyroid Maternal Grandmother Hypothyroid Diabetes Maternal Grandmother COPD Maternal Grandmother Lung Cancer Maternal Grandmother Lipids Maternal Grandfather Heart Paternal Grandmother ID Lung Cancer Paternal Grandmother Colon Cancer Paternal Grandfather Prostate Cancer Paternal Grandfather Thyroid Other MATERNAL 1ST COUSIN BORN WITHOUT THYROID SOCIAL HISTORY Social History Tobacco Use Smoking status: Every Day Packs/day: 1 Types: Cigarettes Smokeless tobacco: Never Vaping Use Vaping Use: current everyday user Substance Use Topics Alcohol use: Not Currently Comment: Occasionally Drug use: Not Currently Types: Cocaine, Crystal Meth, Heroin, IV, Marijuana, Opiates REVIEW OF SYSTEMS Abdomen: No abdominal pain, nausea, vomiting, diarrhea, or constipation. No bloating, early satiety, indigestion, or increased flatulence. Bladder: No dysuria, gross hematuria, urinary frequency, urinary urgency, or incontinence. Breast: No breast lumps, nipple d/c, overlying skin changes, redness or skin retraction. Allergies and current medication updated:Yes EXAM: BP 100/58 Ht 5' 2.992 (1.60m) Wt 124 lb 6.4 oz (56.4kg) LMP 10/27/2023 BMI 22.04 kg/(m^2). GENERAL: pleasant, female in no apparent distress HEENT: Normocephalic, atraumatic, mucus membranes moist, and no lesions NECK: Supple, full range of motion, no adenopathy, and thyroid normal DERMATOLOGY: Normal, without lesions, non-icteric, and non-hirsute BREAST: soft, non-tender, symmetric, no dominant mass, normal nipple-areolar complex, no lymphadenopathy, and no nipple discharge CHEST: Normal inspiratory effort ABDOMEN: soft, non-tender, and no masses PELVIC: external genitalia normal, normal Bartholin's glands, urethra, [place]'s glands, no vulvar lesions, no cervical lesions, good vaginal support, physiologic discharge present, normal appearing perineal body and perianal region BIMANUAL: uterus normal size, shape and consistency, no adnexal masses, and non-tender RECTOVAGINAL: deferred. NEURO: alert and oriented x3,exam grossly non-focal EXTREMITIES: normal ASSESSMENT/PLAN: 1) Health maintenance: Pap done with HPV. Mammogram starting age 40. Nutrition, exercise and routine health maintenance exams reviewed. Calcium/Vitamin D supplementation information provided. 2) Contraception: tubal sterilization. Contraceptive options reviewed and information provided. 3) STD screening: Declined STD check. 4) Follow up one year or sooner as needed 5) [facility] ordered- shai has a dx of diabetes on her record but pt states she has never been dx w/ that. Reorder her meds, she is trying to find a new PCP Talia Landry APRN.SCANNER OPERATOR documented in this encounter [facility] 11-11-2023 History of Presen t illness Narrative Chief Complaint Patient presents with Drug / Alcohol Assessment I did spend --45- minutes preparing for visit, counseling, providing discussion on recovery progress and treatment plan of patient, and management of prescription medications and future scheduling. HPI: Genesis Bradford, a 38 y.o. female, who returns for a follow-up MAT appointment. UDS provided [facility] rx buprenorphine 09/27-10/28 The patient is a 38-year-old female presenting to [facility] for treatment of opiate dependence, stimulant abuse There is an admitted history of problematic opiate, stimulant use dating back several years. Positive loss of control, increased tolerance, continued use despite adverse consequences, inability to abstain successfully on her own. Withdrawal from opiates positive for anxiety, nausea, chills, joint muscle pain. She also experienced auditory visual hallucinations secondary to stimulant use. Patient states that she was treated at [facility] in March,,-- was clean until August 2021. She was admitted in August to [facility] for rhabdomyolysis, auditory, visual hallucinations secondary to stimulant use. There was a period of questionable ensuing sobriety. In April, ,she required admission for overdose and stated that she was on life support. After this occurred, she engaged in treatment at [facility] and claims that she completed their program and continues with aftercare with this program. We are in process of trying to obtain information to confirm this. Since leaving [facility], she has not been able to find a provider to continue her on the Suboxone. Consequently, she has been tapering her medication down so that it would last longer. She is hopeful to get placed back on her therapeutic dose of Suboxone. As noted above, her most recent prescription was 28-day supply filled on September 27. Urine drug screen obtained. In meeting with the patient, she was hyperverbal, frequently needed to be redirected. Very restless, anxious, ill at ease. There were no auditory, tactile or visual disturbances. Based on my evaluation the patient, I have elected to obtain information from [facility] to confirm her engagement in treatment. Urine drug screen obtained, results pending. Will meet with patient next week. Cravings : denied Sleep: denied Anxiety: denied Side effects: denied New medications : denied Recovery status Maintaining sobriety: yes Treatment status: Completed treatment Past Medical History: Diagnosis Date Hepatitis C No current outpatient medications on file prior to visit. No current facility-administered medications on file prior to visit. Not on File Social History Socioeconomic History Marital status: Single Spouse name: Not on file Number of children: Not on file Years of education: Not on file Highest education level: Not on file Occupational History Not on file Tobacco Use Smoking status: Every Day Smokeless tobacco: Not on file Substance and Sexual Activity Alcohol use: Not Currently Drug use: Yes Types: Methamphetamines Sexual activity: Not on file Other Topics Concern Not on file Social History Narrative Not on file Social Determinants of Health Financial Resource Strain: Not on File (05/14/2023) Received from [facility] Financial Resource Strain Financial Resource Strain: 0 Food Insecurity: Not on File (05/14/2023) Received from [facility] Food Insecurity Food: 0 Transportation Needs: Not on File (05/14/2023) Received from [facility] Transportation Needs Transportation: 0 Physical Activity: Not on File (05/14/2023) Received from [facility] Physical Activity Physical Activity: 0 Stress: Not on File (05/14/2023) Received from [facility] Stress Stress: 0 Social Connections: Not on File (05/14/2023) Received from [facility] Social Connections Social Connections and Isolation: 0 Intimate Partner Violence: Not on file Housing Stability: Not on File (05/14/2023) Received from [facility] Housing Stability Housin No family history on file. Objective There were no vitals taken for this visit. Mental status Attitude: cooperative Orientation: oriented X 3 Mood: normal Affect: reactive, mood congruent, normal range Speech: clear, normal R/V/R Thought process: unremarkable Association: no loose associations Thought content: normal Psychotic thoughts: No hallucinations or suicidal ideation Impulse control: good Judgement and insight: good Memory recent, remote within normal limits Assessment: Opiate dependence in remission Plan Patient Goals: 1. Continue 12-step meeting attendance (goal of 2 per week). 2. Actively communicate with sponsor. 3. Take medication as directed and report any negative side effects or missed doses. 4. Report any illicit drug use to either the briefcase sewer or myself/my staff. 5. Keep medicine out of the reach of children. 6. Follow-up with recommended level of care. Interventions in Session: 1. Discussed patient's progress in their 12-step program. 2. Discussed progress in recovery and overall well-being. 3. Discussed stressors/triggers for a potential relapse & related coping mechanisms. Orders Placed This Encounter Procedures MEDICATION ASSISTED TREATMENT PANEL No orders of the defined types were placed in this encounter. Follow up in about 1 week (around 11/18/2023). documented in this encounter [facility] 10-06-2022 History of Presen t illness Narrative Genesis Bradford is a 37 year old female who presents for vaginal irritation for 4 days. Vaginal discharge: scant amount, odorless, and white. Itching: YES Dyspareunia: No Fever/chills: No Abdominal pain: No Bladder: Negative for dysuria or frequency Bowel: No blood in stool, pain with BM, tarry stool, persistent diarrhea or constipation Any new sexual partners or concern for STD exposure: Yes: new partner Are you currently taking any medications to treat vaginitis: No Do you use feminine sprays, douches or deodorants: No Past medical, surgical, social history, medications and allergies reviewed and updated. OBJECTIVE: Wt 138 lb (62.6kg) LMP 09/23/2022 GENERAL: Well developed, well nourished in no apparent distress PELVIC: external genitalia normal, normal Bartholin's glands, urethra, [place]'s glands, no vulvar lesions, no cervical lesions, physiologic discharge present, normal appearing perineal body and perianal region, Clitoris area slight red BIMANUAL: uterus normal size, shape and consistency, no adnexal masses, non-tender, and no cervical motion tenderness. ASSESSMENT/PLAN: 1. Dysuria - ICD9: 788.1, ICD10: R30.0 (primary diagnosis) acute - UA positive for kwabena esterase and hematuria - Send urine for culture - Patient education for prevention given - URINE CULTURE 2. Screen for STD (sexually transmitted disease) - ICD9: V74.5, ICD10: Z11.3 - GC/CHLAMYDIA DNA DET 3. Vulvar irritation - ICD9: 624.8, ICD10: N90.89 - GC/CHLAMYDIA DNA DET - KEAGAN / TRICHOMONAS AMPLIFICATION - BACTERIAL VAGINOSIS AMPLIFICATION Will notify pt of results- okay to leave a voicemessage Talia Landry APRN.ANATOLY Medical Decision Making: Problems: Moderate: New problem with uncertain prognosis Data: Unique test(s) ordered: 3+ Risk: Low: Low risk from testing/treatment Medical Decision Making Level: 4 - Moderate documented in this encounter [facility] 06-23-2022 Miscellaneous Notes Patient notified. Colposcopy scheduled. Lissette Badillo RN Attempted to call patient. Phone rang and then cut out. Pt sent Fancy message to pt about needing appointment for colposcopy. Will await return message from pt. Sandy Cortez LPN ----- Message from Patsy Hyatt MD sent at 06/19/2022 1:31 PM EST ----- Recommend colposcopy given history documented in this encounter [facility] 06-13-2022 Miscellaneous Notes Patient called and notified of results and instructions. Verbalizes understanding. Sherice Michelle RN 3 attempts made to reach patient. Has not read Mychart message. Letter mailed. Lissette Badillo RN Attempted to call patient. No answer. Not able to leave a message Second attempt made to contact patient. Phone was answered and then hung up immediately . Will attempt to contact patient again later. Sherice Michelle RN Attempted to contact patient since she hasn't been on her Mychart since August 2021. No answer and unable to leave a voicemail. Lissette Badillo RN ----- Message from Amanda Mcclendon APRN.ANATOLY sent at 06/11/2022 7:55 AM EST ----- Bacterial vaginosis. Metronidazole sent to pharmacy. [employer] message sent. Amanda Mcclendon APRN.CNP documented in this encounter [facility] 06-09-2022 Instructions Patsy Hyatt MD - 06/09/2022 1:56 PM EST Gardasil Gardasil is a vaccine to protect against Human Papillomavirus (HPV) types 6, 11, 16, 18, 31,33,45, 52, 58. These viruses cause cancer and precancerous lesions on the cervix (opening between vagina and uterus), in the vagina and on the vulva (skin around the outside of the vagina) as well as genital warts. The vaccine cannot cause these diseases and cannot treat them if already present. Gardasil works best if given before contact with HPV. Most people are exposed to HPV soon after starting sexual activity. The vaccine is recommended between the ages of 9 and 45. Gardasil does not protect against all strains of HPV. Women who receive the vaccine still need to have regular pelvic exams and cervical cancer screening with the pap smear. You should ask your doctor if Gardasil is right for you if you have a weakened immune system, a bleeding disorder, plan to become soon or have a current illness causing fever. Gardasil is not recommended for women. You should be sure your doctor is aware of any allergies you have and all medications and herbal supplements you take. Gardasil is given to those ages 9-14 in 2 doses at 0 and 8 months. In ages 15-45, three injections are given at 0,2,6 months. Common side effects include pain, redness, itching and swelling at the injection site, nausea, fever, dizziness and fainting. Rare but potentially serious reactions have been reported. These include allergic reaction, swollen glands, joint and muscle pain, weakness and Guillain-Trion syndrome. documented in this encounter [facility] 06-09-2022 History of Presen t illness Narrative Bruise Trimmer offered: Patient declines. Hurtado is a 36 year old who presents for an annual gynecologic exam without complaints. Menses: Regular, monthly menstrual cycles. Had 1 heavy episode of bleeding with last cycle Contraception: tubal sterilization HPV vaccine: No Last Pap: 03/21/2016 abnormal, LSIL HPV: 03/17/2016 positive History of abnormal pap: Yes - h/o LEEP Last mammogram: never Sexually active: Yes - male partner Patient concerns for STD exposure: No. OB History T1 L3 SAB0 IAB1 Ectopic0 Multiple0 Live Births3 Account Management Assistant History LMP: 06/01/2022 (Approximate), Having periods Age at Menarche: Age at First : Age at Menopause: Account Management Assistant History Comments: Sexual Activity: Yes; Male Contraception: Tubal Ligation PAST MEDICAL HISTORY Diagnosis Date Abnormal glandular Papanicolaou smear of cervix Abn. Pap smear (cervix) Allergic rhinitis, cause unspecified Allergy, airborne subst Generalized anxiety disorder Anxiety, Generalized Hepatitis C PAST SURGICAL HISTORY Procedure Laterality Date DELIVERY ONLY , low cervical COLPOSCOPY CERVIX UPPER/ADJACENT VAGINA Colposcopy CONIZATION CERVIX W/WO D&C RPR ELTRD EXC LEEP-Cervix DILATION & CURETTAGE DX&/THER NONOBSTETRIC Dilation & curettage INDUCED HX TONSILLECTOMY PRIMARY/SECONDARY <AGE 12 Tonsillectomy FAMILY HISTORY Problem Relation Age of Onset Hypertension Mother Thyroid Mother Hypothyroid Diabetes Mother GI Father GB Hypertension Father Lipids Father GI Sister GB No Known Problems Brother Arthritis Maternal Grandmother Heart Maternal Grandmother BYPASS SURGERY Lipids Maternal Grandmother Thyroid Maternal Grandmother Hypothyroid Diabetes Maternal Grandmother COPD Maternal Grandmother Lung Cancer Maternal Grandmother Lipids Maternal Grandfather Heart Paternal Grandmother ID Lung Cancer Paternal Grandmother Colon Cancer Paternal Grandfather Prostate Cancer Paternal Grandfather Thyroid Other MATERNAL 1ST COUSIN BORN WITHOUT THYROID SOCIAL HISTORY Social History Tobacco Use Smoking status: Every Day Packs/day: 1.00 Types: Cigarettes Smokeless tobacco: Never Vaping Use Vaping Use: Former Substance Use Topics Alcohol use: Not Currently Comment: Occasionally Drug use: Not Currently Types: Cocaine, Crystal Meth, Heroin, IV, Marijuana, Opiates REVIEW OF SYSTEMS Abdomen: No abdominal pain, nausea, vomiting, diarrhea, or constipation. No bloating, early satiety, indigestion, or increased flatulence. Bladder: No dysuria, gross hematuria, urinary frequency, urinary urgency, or incontinence. Breast: No breast lumps, nipple d/c, overlying skin changes, redness or skin retraction. Allergies and current medication updated:Yes EXAM: BP 102/62 Ht 5' 2 (1.58m) Wt 139 lb 12.8 oz (63.4kg) LMP 06/01/2022 BMI 25.56 kg/(m^2). GENERAL: pleasant, female in no apparent distress HEENT: Normocephalic, atraumatic, mucus membranes moist, and no lesions NECK: full range of motion DERMATOLOGY: Normal, without lesions, non-icteric, and non-hirsute BREAST: soft, non-tender, symmetric, no dominant mass, normal nipple-areolar complex, no lymphadenopathy, and no nipple discharge CHEST: Normal inspiratory effort ABDOMEN: soft, non-tender, and no masses PELVIC: external genitalia normal, normal Bartholin's glands, urethra, [place]'s glands, no vulvar lesions, no cervical lesions, good vaginal support, physiologic discharge present, normal appearing perineal body and perianal region BIMANUAL: uterus normal size, shape and consistency, no adnexal masses, and non-tender RECTOVAGINAL: deferred. NEURO: exam grossly non-focal EXTREMITIES: normal ASSESSMENT/PLAN: 1) Health maintenance: Pap done with HPV. Nutrition, exercise and routine health maintenance exams reviewed. HPV vaccine: discussed and literature given. 2) Contraception: tubal sterilization. Contraceptive options reviewed and information provided. 3) STD screening: Accepts full STD screeening including HIV, Syphilis and Hepatitis. 4) Follow up one year or sooner as needed Patsy Hyatt DO documented in this encounter [facility] 09-14-2021 History of Presen t illness Narrative .Nutrition rescreen completed. Chart reviewed. Patient to be monitored and followed by the diet audiovisual aids technician.ESTUARDO Watts [facility] MEDICATION RECONCILIATION Date: 09/14/21 Room:[id number] Patient Name: Genesis Bradford Allergies: Patient has no known allergies. Age: 36 y.o. Sex: female Note: New information has been obtained regarding the patient s medications. The medication reconciliation has been updated to reflect this. Please consider making these changes/additions if appropriate: Recommendations: 1. Home medications to restart if there is not a current contraindication: a. Citalopram 20 mg daily b. Omeprazole 40 mg daily (auto-substitutes to pantoprazole 40 mg daily) c. Trazodone 50 mg nightly as needed for insomnia 2. Medications originally on the home list that patient does not take. Please stop unless new indication: a. Ketorolac 10 mg Please page/call with questions. Date: 09/14/21 Time: 9:59 AM Name: Savanna Mac RPH, PharmD Pager: [phone] Images from the original note were not included. Med Team Progress Note Genesis Bradford : 1985(36 y.o.) Date: September 14, 2021 Med Team: Jo-Ann Attending: Dr. Green Chief Complaint: meth abuse, rhabdomyolysis Subjective: Genesis Bradford is a 36 y.o. female with PMH methamphetamine abuse, fentanyl abuse that presented to [facility] on 09/12/2021 from hotel. Police department was called and they brought her to the ED. Upon arrival, pt admitted to using meth and fentanyl and was reporting auditory/visual hallucinations. In ED, pt tachycardic with HR in 110-120s, BP 130/80s, SpO2 97% on RA, temp 98.6 F. Labs significant for Na 131, K 3.3, Cl 97. Initial CK 5727. AST 253/ALT 108. UDS positive for amphetamines and benzos (given Ativan in ED), urine fentanyl positive. UA positive for ketones. Ethanol negative. Pt given 1L NS bolus x3 and started on continuous LR @200 cc/hr. CK continuing to trend down with maintenance fluids and fluid boluses (CK 5725 -> 1400). - No acute events overnight. Pt A&Ox4 this AM and more interactive. - Pt still agreeable to detox this AM. Discussed with ADM physician at [facility] - pt can be transferred [facility] once detox rule is signed. - Denies fevers, chills, chest pain, SOB, abdominal pain, N/V Review of Systems Constitutional: Negative for chills and fever. Eyes: Negative for visual disturbance. Respiratory: Negative for cough, shortness of breath and wheezing. Cardiovascular: Negative for chest pain and leg swelling. Gastrointestinal: Negative for abdominal pain, constipation, diarrhea, nausea and vomiting. Genitourinary: Negative. Musculoskeletal: Negative for arthralgias and myalgias. Neurological: Negative for dizziness, seizures, weakness, numbness and headaches. Scheduled Meds: magnesium sulfate 4,000 mg IntraVENous Once potassium chloride 40 mEq Oral Once gabapentin 300 mg Oral TID baclofen 10 mg Oral TID cloNIDine 0.1 mg Oral TID therapeutic multivitamin-minerals 1 tablet Oral Daily PHENobarbital 64.8 mg Oral Q4H traMADol 100 mg Oral Q4H Followed by traMADol 100 mg Oral Q6H Followed by [START ON 09/15/2021] traMADol 100 mg Oral Q8H sodium chloride flush 10 mL IntraVENous 2 times per day enoxaparin 40 mg SubCUTAneous Daily Continuous Infusions: lactated ringers 200 mL/hr at 09/13/212104 sodium chloride PRN meds used in last 24hrs: Objective: BP 125/85 Pulse 120 Temp 98.5 F (36.9 C) (Temporal) Resp 20 SpO2 97% Physical Exam Constitutional: General: She is not in acute distress. Appearance: She is normal weight. She is ill-appearing. HENT: Right Ear: External ear normal. Left Ear: External ear normal. Nose: Comments: Scab on nose (likely from picking) Mouth/Throat: Mouth: Mucous membranes are moist. Pharynx: Oropharynx is clear. Eyes: Extraocular Movements: Extraocular movements intact. Conjunctiva/sclera: Conjunctivae normal. Pupils: Pupils are equal, round, and reactive to light. Cardiovascular: Rate and Rhythm: Regular rhythm. Tachycardia present. Pulses: Normal pulses. Heart sounds: Normal heart sounds. Pulmonary: Effort: Pulmonary effort is normal. No respiratory distress. Breath sounds: Normal breath sounds. No wheezing, rhonchi or rales. Abdominal: General: Bowel sounds are normal. Palpations: Abdomen is soft. Tenderness: There is no abdominal tenderness. Musculoskeletal: General: No tenderness. Cervical back: Normal range of motion. Right lower leg: No edema. Left lower leg: No edema. Comments: Bilateral hands swollen Skin: General: Skin is warm and dry. Capillary Refill: Capillary refill takes less than 2 seconds. Neurological: General: No focal deficit present. Mental Status: She is oriented to person, place, and time. Cranial Nerves: No cranial nerve deficit. Motor: No weakness. [facility] within last 24 hours Lab Results Component Value Date/Time WBC 8.3 09/14/2021 12:54 AM Hemoglobin 9.5 (L) 09/14/2021 12:54 AM Hematocrit 28.9 (L) 09/14/2021 12:54 AM Platelets 257 09/14/2021 12:54 AM MCV 81.4 09/14/2021 12:54 AM Lab Results Component Value Date/Time Sodium 135 09/14/2021 12:54 AM Potassium 3.1 (L) 09/14/2021 12:54 AM Chloride 108 (H) 09/14/2021 12:54 AM CO2 25 09/14/2021 12:54 AM BUN 8 (L) 09/14/2021 12:54 AM CREATININE 0.51 (L) 09/14/2021 12:54 AM Glucose 98 09/14/2021 12:54 AM Calcium 7.7 (L) 09/14/2021 12:54 AM Magnesium 1.4 (L) 09/14/2021 12:54 AM Lab Results Component Value Date/Time AST 113 (H) 09/14/2021 12:54 AM ALT 66 (H) 09/14/2021 12:54 AM Total Protein 5.6 (L) 09/14/2021 12:54 AM Albumin,Serum 2.7 (L) 09/14/2021 12:54 AM Total Bilirubin 0.5 09/14/2021 12:54 AM Alkaline Phosphatase 55 09/14/2021 12:54 AM Lab Results Component Value Date/Time Total CK 1,414 (H) 09/13/2021 06:16 PM Total CK 2,336 (H) 09/13/2021 01:57 PM Total CK 2,648 (H) 09/13/2021 10:30 AM Assessment and Plan: Non-traumatic rhabdomyolysis - CK 5725 (initial)-> 1400 - Discontinued fluids Untreated hepatitis C Elevated LFTs - AST 113/ALT 66 - Last HCV viral load 2019042 (08/14/21) - Follow up outpatient for hep C treatment Anemia - Hgb 9.5 (11.8) - Likely dilutional; pt received multiple fluid boluses and was on maintenance fluids Auditory hallucinations 2/2 substance abuse Methamphetamine abuse Fentanyl abuse - Pt was sober for 5 months and had setback. Pt agreeable to going to detox. - Spoke with Dr. Lim -> can be transferred to [facility] for detox today. Pt is agreeable. Dispo: Transferred to [facility] for detox today. - Goals of Care: FULL CODE - DVT Prophylaxis: lovenox 40 q24h - creatinine clearance > 30 - GI Prophylaxis: Not Indicated - Diet: General Associated attestation - Sri Green MD - 09/14/2021 10:48 AM EDT Patient seen and evaluated personally by me and discussed with resident team. I have reviewed the harris elements of all parts of the encounter. I agree with the assessment, plan and orders as documented See below note w/ any additional comments and/or exceptions: Medically stable, CK continues trending downward. Patient interested in detox, transferring to [place] today. Sri Green MD Pt very lethargic and unable to complete questioning thoroughly. Pt states she takes celexa, clonidine and vistiral but does not know the doses. Pt unable to state which dr she see. Pt endorses ues of meth and fentanyl, smokes tobacco and denies alcohol. Pt ordered dinner and sitter is being obtained for bedside. This RN is sitting with pt til then. Pt resting in room with no complaints documented in this encounter [facility] Work Phone: 09-14-2021 Note Internal Medicine: M ed Team Discharge Summary Genesis Bradford : 1985 ADMIT DATE: 09/12/2021 DISCHARGE DATE: 09/14/21 PCP: No primary care provider on file. Visit Status: Observation Code Status: FULL CODE Primary Discharge Diagnosis: Polysubstance abuse (fentanyl, benzodiazepines, methamphetamine) Secondary Discharge Diagnoses: Elevated CK - rhabdomyolysis Auditory hallucinations Elevated transaminases Hypokalemia Hep C Reason for Admission & Hospital Course: Genesis Bradford is a 36 y.o. female that presented to [facility] on 09/12/2021 and was admitted for elevated CK secondary to polysubstance abuse. Pt brought in to ED by police after she was found in a hotel. She was endorsing auditory hallucinations, but denied SI and HI. She had reportedly not slept in days. UDS was positive for methamphetamine, fentanyl and benzodiazepines. Her CK was elevated at 5,725. Pt started on LR at 200 mL/hr with bolus of sodium chloride, was given ativan for agitation, and had her K repleted. Bacitracin ointment was applied to wounds to her face that were secondary to skin picking. ADM was contacted for recommendations and pt was started on baclofen, clonidine, gabapentin, phenobarbital, tramadol taper, and a multivitamin. PRN for diarrhea, constipation, insomnia, pain, anxiety, abdominal cramps, and indigestion were given. Fluids were continued and CK was trended. CK decreased to 1414. She no longer endorsed hallucinations. Pt medically clear and transferred to [facility] for detox. Disposition: Detox at [facility] Activity: No restriction. Diet: ADULT DIET; Regular Discharge Medications: Current Outpatient Medications Medication Instructions ? citalopram (CELEXA) 20 mg, Oral, DAILY ? omeprazole (PRILOSEC) 40 mg, Oral, DAILY ? traZODone (DESYREL) 50 mg, Oral, NIGHTLY PRN Notable Medication Changes & Reasoning: None Consultants None Procedures Performed None Significant Laboratory/Radiographic Data: K 3.3 ALT 108, AST 253 CK 5725 --> 3545 --> 2648 --> 2336 --> 1414 Ethanol unremarkable UDS positive for benzodiazepine, fentanyl, amphetamines WBC 15.2 Pending Results at Time of Discharge none Follow Up Appointment(s): N/a; upon dc from detox, will require f/u Items to Address at Followup Visit: BMP f/u with K decreased UE swelling AST/ALT level; 2:1 ratio, inquire of etoh habits again, though she initially denies abuse potential; etoh level since admission was negative hepatitis c viral load: 9,350,000 (08/14/21) IVDU active hx: please assess (fentanyl); meth use [facility] 09-14-2021 Hospital course Narrative Images from the original note were not included. Internal Medicine: Med Team Discharge Summary Genesis Bradford : 1985 ADMIT DATE: 09/12/2021 DISCHARGE DATE: 09/14/21 PCP: No primary care provider on file. Visit Status: Observation Code Status: FULL CODE Primary Discharge Diagnosis: Polysubstance abuse (fentanyl, benzodiazepines, methamphetamine) Secondary Discharge Diagnoses: Elevated CK - rhabdomyolysis Auditory hallucinations Elevated transaminases Hypokalemia Hep C Reason for Admission & Hospital Course: Genesis Bradford is a 36 y.o. female that presented to [facility] on 09/12/2021 and was admitted for elevated CK secondary to polysubstance abuse. Pt brought in to ED by police after she was found in a hotel. She was endorsing auditory hallucinations, but denied SI and HI. She had reportedly not slept in days. UDS was positive for methamphetamine, fentanyl and benzodiazepines. Her CK was elevated at 5,725. Pt started on LR at 200 mL/hr with bolus of sodium chloride, was given ativan for agitation, and had her K repleted. Bacitracin ointment was applied to wounds to her face that were secondary to skin picking. ADM was contacted for recommendations and pt was started on baclofen, clonidine, gabapentin, phenobarbital, tramadol taper, and a multivitamin. PRN for diarrhea, constipation, insomnia, pain, anxiety, abdominal cramps, and indigestion were given. Fluids were continued and CK was trended. CK decreased to 1414. She no longer endorsed hallucinations. Pt medically clear and transferred to [facility] for detox. Disposition: Detox at [facility] Activity: No restriction. Diet: ADULT DIET; Regular Discharge Medications: Current Outpatient Medications Medication Instructions citalopram (CELEXA) 20 mg, Oral, DAILY omeprazole (PRILOSEC) 40 mg, Oral, DAILY traZODone (DESYREL) 50 mg, Oral, NIGHTLY PRN Notable Medication Changes & Reasoning: None Consultants None Procedures Performed None Significant Laboratory/Radiographic Data: K 3.3 ALT 108, AST 253 CK 5725 --> 3545 --> 2648 --> 2336 --> 1414 Ethanol unremarkable UDS positive for benzodiazepine, fentanyl, amphetamines WBC 15.2 Pending Results at Time of Discharge none Follow Up Appointment(s): N/a; upon dc from detox, will require f/u Items to Address at Followup Visit: BMP f/u with K decreased UE swelling AST/ALT level; 2:1 ratio, inquire of etoh habits again, though she initially denies abuse potential; etoh level since admission was negative hepatitis c viral load: 9,350,000 (08/14/21) IVDU active hx: please assess (fentanyl); meth use documented in this encounter [facility] Work Phone: 09-12-2021 Miscellaneous Notes No Show Documentation Genesis Bradford no showed for an appointment on 09/12/21 with Sanju An DO at 9:40am. She was scheduled for follow up. I called and spoke with the patient regarding her missed appointment. Genesis stated the reason that she missed her appointment was because I called the patient left message to contact the office regarding missed appointment. Resources discussed/offered to patient: N/A No show determined to be fault of patient: Yes This is the patients first no show in the last 12 months. Patient was rescheduled for N/A. Letter mailed : Yes Is this the Third or Fourth No Show? No Luke Plascencia September 12, 2021 1:22 PM documented in this encounter [facility] 08-22-2021 Miscellaneous Notes Summary: Follow-up Call SW phoned Pt to check on her wellbeing. Pt reported she went to [facility]. Pt also stated no one called to schedule for her GI doctor. SW gave Pt phone numbers for GI [phone] and Infectious Disease [phone] doctor. 8 minutes documented in this encounter [facility] 08-06-2021 Note HNO ID: [id number] Author: Naveen Rodríguez MD Service: ? Author Type: Physician Type: Progress Notes Filed: 08/06/2021 11:05 AM Note Text: Attending Note I discussed with resident. The patient was not seen or examined by the attending. I reviewed the resident's note. I agree with the resident's assessment and plan unless otherwise noted. Signature: Naveen Rodríguez MD Date: 08/06/2021. Time: 10:13 AM [facility] 08-06-2021 Note HNO ID: [id number] Author: Sanju An DO Service: ? Author Type: Resident Type: Progress Notes Filed: 08/06/2021 11:05 AM Note Text: [facility] Sanju An DO ASSESSMENT/PLAN: 1. Dizziness - ICD9: 780.4, ICD10: R42 (primary diagnosis) - obtain orthostatic vitals -contact provider who prescribed anti HTN meds -likely polypharmacy related, given that she has been sober since 03/2021, needs to back off on clonidine and other meds - CBC - COMP METABOLIC PANEL - TSH BLD 2. Tobacco use disorder - ICD9: 305.1, ICD10: F17.200 - Cessation encouraged. - Physiologic and physical aspects of tobacco addiction as well as strategies for quitting were discussed. - Counseling was given focusing on the harmful effects of this addiction especially given the patient's medical condition(s) which will be worsened because of the chemicals in tobacco. - CBC - COMP METABOLIC PANEL 3. History of drug dependence/abuse (HCC) - ICD9: 304.63, ICD10: F19.21 - follows up with recovery program - CBC - COMP METABOLIC PANEL - CONSULT TO [facility] AD[facility] TV TECHNICIAN for grief management 4. Hepatitis C virus infection without hepatic coma, unspecified chronicity - ICD9: 070.70, ICD10: B19.20 - CBC - COMP METABOLIC PANEL - HCV QUANT RNA BY PCR -if positive consult GI 5. Encounter for health maintenance examination in adult - ICD9: V70.0, ICD10: Z00.00 - Counseled on healthy diet and regular exercise - Calcium intake with supplements or by diet of 1000 mg/day for under 50, 0310-5621 mg/day for 50+ - Smoking cessation encouraged; discussed risks to health and quitting strategies. Patient is not ready to quit - Follow up for annual exam in one year - Pt denied any flu, covid vaccine or any other health maintenance screening Sanju An DO SUBJECTIVE: HPI Genesis Bradford is a 35 year old year old female here today for establish care appointment. 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 She has moved from [place] as she was in [employer] there. She wants to get back on track with her life. She has been sober since apr 13, 2021. She admits to taking previously fentanyl, heroine, methamphetamine. [facility] Since [facility] has been at [facility]. Still smokes -0.5/day No alc or drug Stressors in life, lost family members, friends due to adddciction. Needs grief management support. Looking for behavioral health. Daughter 14, sons 15,18 yo sons This visit complaining of feeling lightheaded, dizzy. Her BP during this visit 108/50, her baseline from 2017 seems 90s/70s. Admits to taking celexa, vistral, clonidine, omeprazole in the morning. At night vitral, clonidine, trazadone and melatonin. Also admits to being tested positive for hepc in the past. Pt denied any flu, covid vaccine or any other health maintenance screening. PAST MEDICAL HISTORY Diagnosis Date - Abnormal glandular Papanicolaou smear of cervix Abn. Pap smear (cervix) - Allergic rhinitis, cause unspecified Allergy, airborne subst - Generalized anxiety disorder Anxiety, Generalized - Hepatitis C PAST SURGICAL HISTORY Procedure Laterality Date - DELIVERY ONLY , low cervical - COLPOSCOPY CERVIX UPPER/ADJACENT VAGINA Colposcopy - CONIZATION CERVIX W/WO DANDC RPR ELTRD EXC LEEP-Cervix - DILATION AND CURETTAGE DXAND/THER NONOBSTETRIC Dilation AND curettage - INDUCED HX - TONSILLECTOMY PRIMARY/SECONDARY Tonsillectomy Social History Tobacco Use - Smoking status: Current Every Day Smoker Packs/day: 1.00 Types: Cigarettes - Smokeless tobacco: Never Used Substance Use Topics - Alcohol use: Yes Comment: Occasionally - Drug use: Yes Types: Cocaine, Crystal Meth, Heroin, IV, Marijuana, Opiates FAMILY HISTORY Problem Relation Age of Onset - Arthritis Maternal Grandmother - Heart Maternal Grandmother BYPASS SURGERY - Lipids Maternal Grandmother - Lipids Maternal Grandfather - Hypertension Mother - Thyroid Maternal Grandmother Hypothyroid - Thyroid Other MATERNAL 1ST COUSIN BORN WITHOUT THYROID - Thyroid Mother Hypothyroid - GI Father GB - GI Sister GB - Diabetes Mother - Diabetes Maternal Grandmother - Colon Cancer Paternal Grandfather - Hypertension Father - Lipids Father - Heart Paternal Grandmother ID - COPD Maternal Grandmother There are no active hospital problems to display for this patient. PAIN EVALUATION No data found in the last 1 encounters. ALLERGIES Allergen Reactions - Environmental [Othe* Intolerance Sinus infections/congestion Current Outpatient Medications Medication Sig - traZODone (DESYREL) 50 mg tablet Take 50 mg by mouth daily at bedtime. - hydrOXYzine pamoate (VISTARIL) 50 mg capsule - cloNIDine HCl (CATAPRES) 0.1 mg tablet - o (more content not included)... [facility] 09-17-2006 History of Past i llness Narrative Problem Noted Date Resolved Date Previous delivery, antepartum condition or complication 09/17/2006 03/01/2012 Threatened premature labor, antepartum(644.03) 0 09/17/2006 03/01/2012 Supervision of other normal 03/02/2006 03/01/2012 documented as of this encounter (statuses as of 08/22/2021) [facility]04-26-2007 History of Past illness Narrative* Problem Noted Date Resolved Date Previous delivery, antepartum condition or complication 09/17/2006 03/01/2012 Threatened premature labor, antepartum(644.03) 0 09/17/2006 03/01/2012 Supervision of other normal 03/02/2006 03/01/2012 documented as of this encounter (statuses as of 09/12/2021) [facility] History of Past illness Narrative* Problem Noted Date Resolved Date Previous delivery, antepartum condition or complication 09/17/2006 03/01/2012 Threatened premature labor, antepartum(644.03) 0 09/17/2006 03/01/2012 Supervision of other normal 03/02/2006 03/01/2012 documented as of this encounter (statuses as of 06/09/2022) [address]26-2007 History of Past illness Narrative* Problem Noted Date Resolved Date Previous delivery, antepartum condition or complication 09/17/2006 03/01/2012 Threatened premature labor, antepartum(644.03) 0 09/17/2006 03/01/2012 Supervision of other normal 03/02/2006 03/01/2012 documented as of this encounter (statuses as of 06/13/2022) [address]26-2007 History of Past illness Narrative* Problem Noted Date Resolved Date Previous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 Discontinued, Hold for a systolic BP of 100 or below 2106 (Not Given - Provider: Rima Rene RN - Reason: Patient/family refused) 0811 (Given - Provider: Kath Finnegan RN)1400 (Due)2100 (Due) enoxaparin (LOVENOX) injection 40 mg 40 mg, SubCUTAneous, DAILY, First dose on Thu09/13/21 at 1845, Until Discontinued, Indication of Use: Prophylaxis-DVT/PE 1844 (Due) 08 (Given - Provider: Kath Finnegan RN) gabapentin (NEURONTIN) capsule 300 mg 300 mg, Oral, 3 TIMES DAILY, First dose on Thu09/13/21 at 2100, Until Discontinued, Hold for excessive sedation 210 (Not Given - Provider: Rima Rene RN - Reason: Patient/family refused) 08 (Given - Provider: Kath Finnegan RN)1400 (Due)2100 (Due) lactated ringers bolus (COMPLETED) 500 mL, IntraVENous, at 491.8 mL/hr, Administer over 61 Minutes, ONCE, On Thu09/13/21 at 1600, For 1 dose 1556 (New Bag - Provider: Manan Gagnon RN - Comment: bolus from [id number] MLs given)1632 (Stopped - Provider: Manan Gagnon RN) LORazepam (ATIVAN) injection 2 mg (COMPLETED) 2 mg, IntraMUSCular, ONCE, 1 dose, On Thu09/13/21 at 0100 0059 (Given - Provider: Vannesa Hooker RN) magnesium chloride (MAG DELAY) extended release tablet 128 mg (COMPLETED) 128 mg (2 tablet), Oral, ONCE, 1 dose, On Thu09/14/21 at 0930 0957 (Given - Provid er: Kath Finnegan RN) magnesium sulfate 4000 mg in 100 mL IVPB premix (CANCELED) 4,000 mg, IntraVENous, at 25 mL/hr, Administer over 4 Hours, ONCE, On Thu09/14/21 at 0730, For 1 dose, Recommended infusion rate not to exceed 1,000 mg (milligrams) per hour. 0812 (New Bag - Provider: Kath Finnegan RN)0917 (Stopped - Provider: Kath Finnegan RN) PHENobarbital (LUMINAL) tablet 64.8 mg 64.8 mg, Oral, EVERY 4 HOURS, First dose on Thu09/13/21 at 1830, Until Discontinued, Hold if patient unarousable 1829 (Due)2216 (Not Given - Provider: Rima Rene RN - Reason: Patient/family refused) 0140 (Given - Provider: Rima Rene RN)0641 (Given - Provider: Rima Rene RN)1054 (Held by provider - Provider: Sunita Fuentes MD - Reason: Other)1056 (Not Given - Provider: Kath Finnegan RN - Reason: Order parameters not met)1430 (Automatically Held - Provider: Sunita Fuentes MD)1830 (Automatically Held - Provider: Sunita Fuentes MD)2230 (Automatically Held - Provider: Sunita Fuentes MD) potassium chloride (KLOR-CON M) extended release tablet 40 mEq (COMPLETED) 40 mEq, Oral, ONCE, 1 dose, On Thu09/14/21 at 0730, Do not crush, chew, or suck on tablet. Tablet may also be broken in half and each half swallowed separately. 0811 (Given - Provid er: Kath Finnegan RN) potassium chloride (KLOR-CON M) extended release tablet 40 mEq (COMPLETED) 40 mEq, Oral, ONCE, 1 dose, On Thu09/13/21 at 0300, Do not crush, chew, or suck on tablet. Tablet may also be broken in half and each half swallowed separately. 0838 (Given - Provider: Manan Gagnon RN) sodium chloride flush 0.9 % injection 10 mL 10 mL, IntraVENous, EVERY 12 HOURS SCHEDULED (2 times per day), First dose on Thu09/13/21 at 2100, Until Discontinued 2105 (Not Given - Provider: Rima Rene RN - Reason: Patient/family refused) 0812 (Given - Provider: Kath Finnegan RN)2100 (Due) therapeutic multivitamin-minerals 1 tablet 1 tablet, Oral, DAILY, First dose on Thu09/13/21 at 1830, Until Discontinued 183 (Due) 0811 (Given - Provider: Kath Finnegan RN) traMADol (ULTRAM) tablet 100 mg(Linked Group 1) 100 mg, Oral, EVERY 4 HOURS, 6 doses, First dose on Thu09/13/21 at 1830, Last dose on 09/14/21 at 1430 1830 (Due)2220 (Not Given - Provider: Rima Rene RN - Reason: Patient/family refused) 0139 (Given - Provider: Rima Rene RN)0641 (Given - Provider: Rima Rene RN)1155 (Not Given - Provider: Kath Finnegan RN - Reason: Other - Comment: Physician wants held)1430 (Due) traMADol (ULTRAM) tablet 100 mg(Linked Group 1) 100 mg, Oral, EVERY 6 HOURS, 4 doses, First dose on 09/14/21 at 1830, Last dose on 09/15/21 at 1230 1830 (Due) traMADol (ULTRAM) tablet 100 mg(Linked Group 1) 100 mg, Oral, EVERY 8 HOURS, 3 doses, First dose on 09/15/21 at 1830, Last dose on 09/16/21 at 1030 Continuous Medication Order 09/12/2021 09/13/2021 09/14/2021 lactated ringers infusion (CANCELED) IntraVENous, at 200 mL/hr, CONTINUOUS, Starting on Thu09/13/21 at 0630 0818 (New Bag - Provider: Dick Gagnon RN)1245 (New Bag - Provider: Manan Gagnon RN)2105 (Rate/Dose Verify - Provider: Rima Rene RN) PRN Medication Order 09/12/2021 09/13/2021 09/14/2021 0.9 % sodium chloride infusion IntraVENous, at 5-250 mL/hr, PRN, if patient receiving piggyback infusions and maintenance fluids are not ordered OR KVO fluids to protect IV site / prevent frequent line interruptions/ long duration, Starting on Thu09/13/21 at 1816, For piggyback infusion, administer at same rate as piggyback for a total of 25 mL. Enter 25 mL into dose field and piggyback rate into rate field of order. If piggyback is infusing at a rate less than 100 mL/hr, enter 25 mL into dose field and 100 mL/hr into rate field of order. For KVO fluids, enter rate of 20 mL/hr or less into rate field of order. acetaminophen (TYLENOL) suppository 650 mg(Linked Group 2) 650 mg, Rectal, EVERY 6 HOURS PRN, Starting on Thu09/13/21 at 1816, Until Discontinued, Pain Mild (1-3), Fever, For temp greater than 100.4 F (38 C), Administer if oral route cannot be used. acetaminophen (TYLENOL) tablet 650 mg(Linked Group 2) 650 mg, Oral, EVERY 6 HOURS PRN, Starting on Thu09/13/21 at 1816, Until Discontinued, Pain Mild (1-3), Fever, For temp greater than 100.4 F (38 C), Maximum dose of acetaminophen is 4000 mg from all sources in 24 hours. aluminum & magnesium hydroxide-simethicone (MAALOX) 200-200-20 MG/5ML suspension 30 mL 30 mL, Oral, EVERY 6 HOURS PRN, Starting on Thu09/13/21 at 1805, Until Discontinued, Indigestion dicyclomine (BENTYL) tablet 20 mg 20 mg, Oral, EVERY 6 HOURS PRN, Starting on Thu09/13/21 at 1805, Until Discontinued, abdominal cramps hydrOXYzine (VISTARIL) capsule 50 mg 50 mg, Oral, EVERY 6 HOURS PRN, Starting on Thu09/13/21 at 1805, Until Discontinued, Itching, Anxiety ibuprofen (ADVIL;MOTRIN) tablet 400 mg 400 mg, Oral, EVERY 6 HOURS PRN, Starting on Thu09/13/21 at 1805, Until Discontinued, pain mild to severe (1-10), Do not crush or chew. loperamide (IMODIUM) capsule 2 mg 2 mg, Oral, 4 TIMES DAILY PRN, Starting on Thu09/13/21 at 1805, Until Discontinued, Diarrhea, After each loose stool. magnesium hydroxide (MILK OF MAGNESIA) 400 MG/5ML suspension 30 mL 30 mL, Oral, DAILY PRN, Starting on Thu09/13/21 at 1805, Until Discontinued, Constipation ondansetron (ZOFRAN) injection 4 mg(Linked Group 3) 4 mg, IntraVENous, EVERY 6 HOURS PRN, Starting on Thu09/13/21 at 1816, Until Discontinued, Nausea, Vomiting, Administer if oral route cannot be used. polyethylene glycol (GLYCOLAX) packet 17 g 17 g, Oral, DAILY PRN, Starting on Thu09/13/21 at 1816, Until Discontinued, Constipation, Second-line therapy for constipation. promethazine (PHENERGAN) tablet 12.5 mg(Linked Group 3) 12.5 mg, Oral, EVERY 6 HOURS PRN, Starting on Thu09/13/21 at 1816, Until Discontinued, Nausea, Vomiting, Per Duplicate PRN Medication policy #4027: Use ondansetron first; if not relieved after 30 minutes, then use promethazine. sennosides-docusate sodium (SENOKOT-S) 8.6-50 MG tablet 1 tablet 1 tablet, Oral, DAILY PRN, Starting on Thu09/13/21 at 1816, Until Discontinued, Constipation, First-line therapy for constipation. sodium chloride flush 0.9 % injection 10 mL 10 mL, IntraVENous, PRN, Starting on Thu09/13/21 at 1816, Until Discontinued, Line Care, After every IV line use traZODone (DESYREL) tablet 100 mg 100 mg, Oral, NIGHTLY PRN, Starting on Thu09/13/21 at 2100, Until Discontinued, Sleep Linked Groups Order Group 1: traMADol (ULTRAM) tablet 100 mgJump to med 100 mg, Oral, EVERY 4 HOURS, 6 doses, First dose on Thu09/13/21 at 1830, Last dose on 09/14/21 at 1430 Followed by traMADol (ULTRAM) tablet 100 mgJump to med 100 mg, Oral, EVERY 6 HOURS, 4 doses, First dose on 09/14/21 at 1830, Last dose on Thu09/15/21 at 1230 Followed by traMADol (ULTRAM) tablet 100 mgJump to med 100 mg, Oral, EVERY 8 HOURS, 3 doses, First dose on 09/15/21 at 1830, Last dose on 09/16/21 at 1030 Group 2: acetaminophen (TYLENOL) tablet 650 mgJump to med 650 mg, Oral, EVERY 6 HOURS PRN, Starting on Thu09/13/21 at 1816, Until Discontinued, Pain Mild (1-3), Fever, For temp greater than 100.4 F (38 C)
Maximum dose of acetaminophen is 4000 mg from all sources in 24 hours.
Or acetaminophen (TYLENOL) suppository 650 mgJump to med 650 mg, Rectal, EVERY 6 HOURS PRN, Starting on Thu09/13/21 at 1816, Until Discontinued, Pain Mild (1-3), Fever, For temp greater than 100.4 F (38 C)
Administer if oral route cannot be used.
Group 3: promethazine (PHENERGAN) tablet 12.5 mgJump to med 12.5 mg, Oral, EVERY 6 HOURS PRN, Starting on Thu09/13/21 at 1816, Until Discontinued, Nausea, Vomiting
Per Duplicate PRN Medication policy #4027: Use ondansetron first; if not relieved after 30 minutes, then use promethazine.
Or ondansetron (ZOFRAN) injection 4 mgJump to med 4 mg, IntraVENous, EVERY 6 HOURS PRN, Starting on Thu09/13/21 at 1816, Until Discontinued, Nausea, Vomiting
Administer if oral route cannot be used.
Goals (unrecognized section and content) Goals may be documented in a n alternate sectionGoals may be documented in an alternate sectionGoals may be documented in an alternate sectionGoals may be documented in an alternate sectionGoals may be documented in an alternate sectionGoals may be documented in an alternate sectionGoals may be documented in an alternate section FOR RECORDS PERTAINING TO PATIENTS WHO ARE OR HAVE BEEN ENROLLED IN A CHEMICAL DEPENDENCY/SUBSTANCEABUSE PROGRAM, SOME INFORMATION MAY BE OMITTED. This clinical summary was aggregated from multiple sources. Caution should be exercised in using it in the provision of clinical care. This summary normalizes information from multiple sources, and as a consequence, information in this document may materially change the coding, format and clinical context of patient data. In addition, data may be omitted in some cases. CLINICAL DECISIONS SHOULD BE BASED ON THE PRIMARY CLINICAL RECORDS. [facility]. provides no warranty or guarantee of the accuracy or completeness of information in this document.
[2024-11-08 00:07] LABS: Erythrocyte Sedimentation Rate < 1 mm/hr (0-30)
[2024-11-08 00:08] LABS: Absolute Neutrophil Count 3.2 X10^3/uL (2.0-7.7); Basophil# 0.05 X10^3/uL; Basophil% 0.6 % (0-1); Eosinophil# 0.31 X10^3/uL; Eosinophils% 3.8 % (0-5); Hematocrit 35.4 % (37-47); Lymphocyte % 48.1 % (19-41); Mean Corp Hgb Conc 31.1 g/dL (32-36); Mean Corpuscular Hgb 24.4 pg (27.0-32.0); Mean Corpuscular Volume 78.5 fL (81-99); Mean Platelet Vol. 10.5 fl (6.2-12.0); Monocyte# 0.61 X10^3/uL; Monocyte% 7.5 % (0-10); NRBC Flagged by Analyzer 0 % (0-5); Neutrophil # 3.19 X10^3/uL (2.7-7.7); Neutrophil % 39.5 % (47-70); Platelet Count 165 K/mm3 (150-450); RBC Distribution Width CV 14.9 % (11.6-14.6); RBC Distribution Width SD 42.9 fl (35.1-43.9); Red Blood Count 4.51 M/mm3 (4.2-5.4); White Blood Count 8.1 K/mm3 (4.4-11.0)
--- NOTE | 2024-11-08 00:15 | CT_ITS ---
PROCEDURE: BRAIN/HEAD WITHOUT CONTRAST 11/08/2024 REASON FOR EXAM: HEADACHE TECHNIQUE: BRAIN/HEAD WITHOUT CONTRAST Coronal and Sagittal reconstruction series were provided. One or more dose reduction techniques were used (e.g., Automated exposure control, adjustment of the mA and/or kV according to patient size, use of iterative reconstruction technique. RADIATION DOSE SUMMARY: CTDlvol: mGy DLP: mGycm COMPARISON: 10-16-2024 FINDINGS: The visualized brain parenchyma shows normal appearance. No focal parenchymal abnormalities are demonstrated. Danielle-white matter differentiation is maintained. Normal CT appearance of the posterior fossa structures. No intracerebral or extra-axial hematoma. No midline shifts or deformity. Normal size and configuration of the cerebral ventricles. No definite calvarial fractures. The osseous structures in the skull base are unremarkable. Paranasal sinuses are unremarkable. Resolution of the left frontal subcutaneous hematoma/edema. CT/Brain/Head without Contrast IMPRESSION: No intra or extra-axial hematomas. No acute cerebrovascular insult. If there is high clinical suspicion, correlate to MRI Unremarkable non-enhanced CT study for the brain. Reading [facility]
[2024-11-08 00:29] LABS: CRP < 3.00 mg/L (0.0-3.0)
[2024-11-08 01:32] VITALS: BP 96/65; PULSE 62; RESP 16; O2SAT 98
[2024-11-08 01:35] VITALS: BP 96/78; PULSE 67; RESP 12; TEMP 37.2; O2SAT 95
--- NOTE | 2024-11-08 02:02 | EX.ED.DYSGE1 ---
HPI History of Present Illness Chief Complaint: Headache Informant: patient Narrative Narrative: Patient is a 39-year-old female with past medical history of of polysubstance abuse and hepatitis C as well as occasional headache. She states that over the past week she has been having intermittent left-sided headache. She denies any trauma or sick symptoms. She states that the headache typically will be sharp in nature and last for a few minutes and then resolve. She denies any family history of brain tumor or aneurysm. She states that as a headache has been recurrent she was concerned there may be some type of infectious process or brain abnormality and therefore comes in for evaluation [facility] Medical History Accidental overdose Active intravenous drug use Anemia Elevated LFTs History of hepatitis C History of heroin use History of methamphetamine use Methamphetamine dependence Opiate withdrawal Severe protein-calorie malnutrition Status post elective Substance abuse Home Medications ?Medication ?Instructions ?Recorded ?Last Taken ?Type albuterol sulfate 90 mcg/actuation 2 puff inhalation Q6H PRN PRN 11/07/24 Unknown History aerosol inhaler wheezing multivitamin with folic acid 400 1 tab PO DAILY 11/07/24 Unknown History mcg tablet (Tab-A-Nasir) omeprazole 20 mg capsule,delayed 20 mg PO DAILY 11/07/24 Unknown History release ropinirole 1 mg tablet 1 mg PO QHS 11/07/24 Unknown History Allergy/AdvReac Type Severity Reaction Status Date / Time ropinirole (From Requip) Allergy Shortness Verified 11/07/24 21:33 of breath Family History Other Cancer Colon cancer Diabetes Heart disease Surgical History Status post Status post tonsillectomy Status post tubal ligation Social History Smoking Status: Current every day smoker tobacco type: cigarettes substance use type: crack/cocaine, IV drugs and methamphetamine ROS ROS ED Constitutional Constitutional ED: Denies chills or fever(s) Eyes Eyes: Denies blurry vision or change in vision ENT ENT ED: Denies rhinorrhea or sore throat Cardiovascular Cardiovascular: Denies chest pain Respiratory/Chest Respiratory/Chest: Denies cough or dyspnea Gastrointestinal Gastrointestinal: Denies abdominal pain, diarrhea, nausea or vomiting Genitourinary Genitourinary ED: Denies dysuria Musculoskeletal Musculoskeletal: Denies myalgias Integumentary Denies rash Neurologic Neurologic: Reports headache(s); Denies paresthesias or weakness Hematologic/Lymphatic Hematologic/Lymphatic: Denies easy bleeding or easy bruising EXAM Physical Exam Const Vital Signs: 11/07/24 21:34 11/08/24 01:32 11/08/24 01:35 Temperature 97.2 F L 98.9 F Temperature Source Temporal Pulse Rate 91 62 67 Respiratory Rate 18 16 12 Blood Pressure 108/63 96/65 96/78 Blood Pressure Mean 78 75 84 Pulse Ox 98 98 95 Oxygen Delivery Method Room Air Room Air Positive well nourished and well developed General Appearance ED: well developed; Negative for pallor HEENT Reports TM's clear HEENT Narrative: Normocephalic atraumatic No pain on palpation along the left temporal region No increased pain with palpation over top the maxillary frontal or ethmoid sinuses Tympanic Membrane ED: Yes TM's clear Eyes PERRL and EOMs intact bilaterally General Eye ED: Negative for scleral icterus Neck supple Neck Narrative: No nuchal rigidity or meningeal sign Resp normal respiratory effort and clear to auscultation bilaterally Cardio regular rate and regular rhythm Extremity normal to inspection Neuro oriented x3, CN's II-XII intact bilaterally and no sensory deficits noted Neuro Narrative: GCS of 15 Cranial nerves II through XII are grossly intact without focal neurologic deficit No pronator drift no dysmetria no truncal ataxia NIH stroke scale score of 0 Sensorium / Orientation: alert Motor Exam: strength 5/5 throughout Psych mental status grossly normal Skin no rashes or lesions noted and no wounds General Skin Exam: Negative for jaundice or pallor MDM MDM MDM Narrative Medical decision making narrative: The patient arrived with stable vitals and reported intermittent headache along the left temporal portion of her scalp over the past week. With pain in this region there is concern for potential temporal arteritis or sinus inflammation or sinusitis. Patient also could have a spontaneous subarachnoid or subdural hemorrhage or potential brain mass. Secondary to this I did like to perform basic laboratory studies and a head CT. Labs revealed no clinically significant findings going against temporal arteritis as there was no inflammatory marker elevation. Head CT revealed no acute brain pathology such as mass or bleed. After receiving IV fluids Toradol Benadryl and Reglan patient reported resolution of her headache and on reevaluation her neurologic exam remained normal. Therefore I do not feel there is need for further intervention and she is otherwise safe for discharge. History & Record Review Discussion w/independent historian: Patient Lab Data Attestation: I reviewed the patient's lab results. Labs: Laboratory Results - last 24 hr 11/07/24 23:45 WBC 8.1 RBC 4.51 Hgb 11.0 L Hct 35.4 L MCV 78.5 L MCH 24.4 L MCHC 31.1 L RDW Std Deviation 42.9 RDW Coeff of Owen 14.9 H Plt Count 165 MPV 10.5 Immature Gran % (Auto) 0.500 Neut % (Auto) 39.5 L Lymph % (Auto) 48.1 H [place] % (Auto) 7.5 Eos % (Auto) 3.8 Baso % (Auto) 0.6 Absolute Neuts (auto) 3.2 Absolute Lymphs (auto) 3.90 Nucleated RBC % 0 ESR < 1 C-React Prot Ext Range < 3.00 Radiography Diagnostic Testing: Clinical Impression(s) from Imaging Studies Brain CT 11/08/24 00:15 IMPRESSION: No intra or extra-axial hematomas. No acute cerebrovascular insult. If there is high clinical suspicion, correlate to MRI Unremarkable non-enhanced CT study for the brain. Reading Location: [place] [id number] Discharge Plan Triage Chief Complaint: Headache ED Provider: Christopher Fenton Dx/Rx/DC Orders Clinical Impression: Cephalgia, Tobacco use, History of drug abuse Instructions: ED Headache Unspecified Prescriptions: No Action ropinirole 1 mg tablet 1 mg PO QHS omeprazole 20 mg capsule,delayed release(DR/EC) 20 mg PO DAILY albuterol sulfate 90 mcg/actuation HFA aerosol inhaler 2 puff inhalation Q6H PRN PRN (Reason: wheezing) multivitamin with folic acid [Tab-A-Nasir] 400 mcg tablet 1 tab PO DAILY Primary Care Provider: Care Physician,No Primary Referrals: Angel Damon MD [Med Staff - Active Staff] - Care Physician,No Primary [Primary Care Provider] - Activity Restrictions/Additional Instructions: Your workup today showed no sign of brain bleed or mass or signs of infection as a cause of your headache. Please follow-up with your family doctor for repeat evaluation and to discuss potential neurology for referral to evaluate you for other causes of headache. Return to the ER should you have any further concerns Print Language: [place] Disposition Disposition: Home, Self Care Discharge Date/Time: 11/08/24 02:41
== END 2024-11-08 02:41 | disposition home or self-care (01) ==
PROVIDERS: Emergency Provider Emergency Medicine; Visit Provider Emergency Medicine
DX: R51.9 Headache, unspecified (principal); F17.210 Nicotine dependence, cigarettes, uncomplicated; Z79.51 Long term (current) use of inhaled steroids; Z79.899 Other long term (current) drug therapy
CPT/HCPCS: 70450; 85025; 85652; 86140; 96361; 96374; 96375; 96376; 99283; A4216

== ENCOUNTER → 2025-03-15 | Outpatient (CLI) | payer MEDICAID, SELFPAY | END | disposition home or self-care (01) | LOC: LABSPEC 15:06 | DX: J01.90 Acute sinusitis, unspecified (principal) | CPT/HCPCS: 87070; 87205 ==

== ENCOUNTER 2025-04-29 21:59 | Emergency (ER) | payer MEDICAID, SELFPAY ==
[2025-04-29 22:00] VITALS: BP 116/69; PULSE 107; RESP 18; TEMP 36.9; O2SAT 99; BMI 26.8
--- NOTE | 2025-04-29 22:14 | RAD_ITS ---
PROCEDURE: CHEST PA AND LATERAL 04/29/2025 REASON FOR EXAM: COUGH TECHNIQUE: Procedure Code: RADCXR Modality: DX Procedure: CHEST PA AND LATERAL FINDINGS: The heart is normal in size. The lungs are clear. No acute osseous abnormalities. RAD/Chest PA and Lateral IMPRESSION: NO ACUTE FINDINGS. Reading Location: [id number]
[2025-04-29] MEDS: Albuterol 2.5 MG/3 ML VIAL.NEB. INHALATION (22:28)
[2025-04-29 22:29] VITALS: PULSE 82; RESP 18
--- OUTSIDE RECORDS SUMMARY | 2025-04-29 22:32 | XMS RPT_ITS | CCD ---
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 allergies. MEDICATIONS naproxen (NAPROSYN) 500 mg tablet Take 1 tablet by mouth two times a day as needed (FOR PAIN - TAKE WITH FOOD.). predniSONE (DELTASONE) 20 mg tablet Take 2 tablets by mouth once daily for 5 days. benzonatate (TESSALON PERLE) 100 mg capsule Take 1 capsule by mouth three times a day as needed. albuterol HFA (PROVENTIL HFA, VENTOLIN HFA) 90 mcg/actuation inhaler Inhale 2 puffs as instructed every 4 hours as needed for wheezing/shortness of breath. fluticasone (FLONASE) 50 mcg/actuation nasal spray Use 2 sprays in each nostril once daily. Rinse mouth after use. FAMILY HISTORY Problem Relation Age of Onset Hypertension Mother Thyroid Mother Hypothyroid Diabetes Mother GI Father GB Hypertension Father Lipids Father GI Sister GB No Known Problems Brother Arthritis Maternal Grandmother Heart Maternal Grandmother BYPASS SURGERY Lipids Maternal Grandmother Thyroid Maternal Grandmother Hypothyroid Diabetes Maternal Grandmother COPD Maternal Grandmother Lung Cancer Maternal Grandmother Lipids Maternal Grandfather Heart Paternal Grandmother CA Lung Cancer Paternal Grandmother Colon Cancer Paternal Grandfather Prostate Cancer Paternal Grandfather Thyroid Other MATERNAL 1ST COUSIN BORN WITHOUT THYROID SOCIAL HISTORY[1] Review of Systems Constitutional: (+) subjective fever Ears/Nose/Mouth/Throat: (+) nasal congestion Cardiovascular: (+) chest pain Respiratory: (+) shortness of breath, (+) cough, (+) purulent sputum Musculoskeletal: (+) rib pain Objective BP 122/78 Pulse 100 Temp 36.9 ?C (98.5 ?F) (Tympanic) Resp 18 Wt 69.3 kg (152 lb 12.5 oz) LMP 01/24/2025 (Approximate) SpO2 96% BMI 28.40 kg/m? Physical Exam General: Not in acute distress, normal appearance, well-developed, not toxic-appearing HEENT - Eyes: Conjunctivae normal - Ears: Right ear: Tympanic membrane normal, ear canal normal; Left ear: Tympanic membrane normal, ear canal normal - Nose/Sinuses: Nose normal - Oropharynx: Mucous membranes moist, oropharynx clear, uvula midline Cardiovascular - Rate/Rhythm: Normal rate and regular rhythm - Heart Sounds: Normal heart sounds Pulmonary - Lung Sounds: Wheezing throughout - Respiratory Effort: Pulmonary effort normal Neurologic - Mental Status: Alert Skin: Skin warm and dry Lymphatic - Cervical: No cervical adenopathy { 1. Acute cough (R05.1) 2. Wheezing (R06.2) - Acute cough with wheezing and chest discomfort; exam notable for wheezing - Differential includes bronchitis vs. pneumonia. - Ordered chest X-ray to rule out pneumonia. - Rx for prednisone, refill inhaler, refill Flonase and Rx Tessalon Perles for suspected bronchitis. - Will call in antibiotic if chest x-ray positive for pneumonia - Refill inhaler as requested. - Will call patient with X-ray results and further management plan. - Provided work excuse as requested. 3. Smoker (F17.200) - Patient vapes and occasionally smokes cigarettes. - and Recording using [employer] software for [employer] (more content not included)... Normal [facility] XR CHEST 2V FRONTAL/LATon XR CHEST 2V FRONTAL/LAT * * *Final Report* * * DATE OF EXAM: Mar 14 2025 2:20PM WOX [id number] - XR CHEST 2V FRONTAL/LAT / PROCEDURE REASON: multiple diagnoses * * * * Physician Interpretation * * * * EXAMINATION: CHEST RADIOGRAPH (2 VIEW FRONTAL and LATERAL) CLINICAL HISTORY: Acute cough Wheezing MQ: [id number] EXAM DATE/TIME: 03/14/2025 2:20 PM COMPARISON: 05/10/2024 RESULT: Lines, tubes, and devices: None. Lungs and pleura: No consolidation. No lung mass. No pleural effusion. No pneumothorax. Cardiomediastinal silhouette: Normal cardiomediastinal silhouette. Bones and soft tissues: Unremarkable. IMPRESSION: No acute radiographic abnormality. Vacuum Pan Tender: PSCB Transcribe Date/Time: Mar 14 2025 2:21P Dictated by : KAMRYN MORLEY MD This examination was interpreted and the report reviewed and electronically signed by: KAMRYN MORLEY MD on Mar 14 2025 2:21PM EST [id number] Normal [facility] Bacteria Ur Culton 5 Bacteria identified Cx Nom (U) CULTURE, URINE: No growth (<1,000 CFU/ml) Normal [facility] Comment on above: Performed By: #### 6 30-4 ####[facility] LABCLIA [id number] [facility] [address] [address] [place] CNOVon 02-02-2025 CNOV Office Visit (WOUCA) GENESIS KLEIN ([id number]) 1985 F Date Time Provider Department 02/02/25 4:45 PM CONNOR ESCOBAR During your visit today, we recorded the following information about you: Temperature Pulse Respiration Blood pressure 98.7 degrees 103/minute 21/minute 102/68 Weight 66.9 kg Connor Escobar APRN.ANNUAL CAMPAIGN MANAGER 02/02/2025 5:27 PM Signed [facility] Subjective Genesis Klein is a 39 year old female c/o left lower abdominal pain and cramping with urinary frequency in last day, just started doxycycline for folliculitis in last 2 days, mild burning urination Patient presents with: Urinary Problem: Frequency, left side groin pain x 8 hours The history is provided by the patient. UTI This is a new problem. The current episode started 6 to 12 hours ago. The problem occurs intermittently. The problem has not changed since onset.The pain is mild. There has been no fever. Associated symptoms include frequency, urgency and flank pain. Pertinent negatives include no chills. Review of Systems Constitutional: Negative for chills, fatigue and fever. HENT: Negative. Respiratory: Negative for cough and shortness of breath. Gastrointestinal: Positive for abdominal pain. Genitourinary: Positive for dysuria, flank pain, frequency and urgency. Objective BP 102/68 Pulse 103 Temp 37.1 ?C (98.7 ?F) Resp 21 Wt 66.9 kg (147 lb 7.8 oz) LMP 01/24/2025 (Approximate) SpO2 96% BMI 27.42 kg/m? Physical Exam Vitals and nursing note reviewed. Constitutional: Appearance: Normal appearance. Pulmonary: Effort: Pulmonary effort is normal. Breath sounds: Normal breath sounds. Abdominal: General: Abdomen is flat. There is no distension. Palpations: Abdomen is soft. There is no mass. Tenderness: There is no abdominal tenderness (none significant per self palpatation). There is no right CVA tenderness, left CVA tenderness, guarding or rebound. Hernia: No hernia is present. Skin: General: Skin is dry. Neurological: General: No focal deficit present. Mental Status: She is alert. ASSESSMENT/PLAN: 1. Urinary frequency - ICD9: 788.41, ICD10: R35.0 (primary diagnosis) acute - UA negative, suspect lower abdominal pain/cramping from doxycycline, take with food to avoid upset stomach - Send urine for culture- Will call if any changes needed in antibiotic , stay on doxycycline and steroid, take naproxen if pain still not improving - Patient education for prevention given - UA DIP, URINE (POC) - BACTERIAL CULTURE, URINE 2. Antibiotic-induced yeast infection - ICD9: 112.9, E930.9, ICD10: B37.9, T36.95XA - take only if signs of yeast infection develop - FLUCONAZOLE 150 MG TABLET 3. Dysuria - ICD9: 788.1, ICD10: R30.0 acute - Send urine for culture - Patient education for prevention given - NAPROXEN 500 MG TABLET - supportive care with rest, hydration Connor Escobar APRN.ANATOLY -I have reviewed and updated with the patient: allergies, VS, current medications, Past Medical History,Past Surgical History,Past Family Medical History, Past Social History. - Patient education provided today - Discussed with patient medications that are indicated and how to use the medications and what the potential side effects are. - Warning signs of worsening condition explained to patient -Instructed to follow up with PCP if symptoms not improving in next 2-3 days - Patient left in stable condition after questions answered and patient verbalizes understanding - Instructed to go to Emergency Department right away with any severe worsening chest pain, shortness of breath, headache, dizziness, weakness, numbness,leg swelling , tingling, problems walking or speaking or any other concerning symptoms History and Record Review External record(s) reviewed: prior outpatient record. Differential Diagnoses - gi upset from doxycycline is more likely for the following reason(s): suggested by HANDP - uti is less likely for the following reason(s): laboratory studies not suggestive Disposition The patient was discharged. OTC Medications were advised: Procedures Connor Escobar APRN.ANNUAL CAMPAIGN MANAGER 02/02/2025 5:27 PM Addendum ASSESSMENT/PLAN: 1. Urinary frequency - ICD9: 788.41, ICD10: R35.0 (primary diagnosis) acute - UA negative, suspect lower abdominal pain/cramping from doxycycline, take with food to avoid upset stomach - Send urine for culture- Will call if any changes needed in antibiotic , stay on doxycycline and steroid, take naproxen if pain still not improving - Patient education for prevention given - UA DIP, URINE (POC) - BACTERIAL CULTURE, URINE 2. Antibiotic-induced yeast infection - ICD9: 112.9, E930.9, ICD10: B37.9, T36.95XA - take only if signs of yeast infection develop - FLUCONAZOLE 150 MG TABLET 3. Dysuria - ICD9: 788.1, ICD10: R30.0 acute (more content not included)... Normal [facility] UA DIP, URINE (POC)on 2024 BILIRUBIN UA (POCT) Negative Negative [facility] CLARITY UA (POCT) Clear [facility] COLOR UA (POCT) Yellow [facility] GLUCOSE UA (POCT) Negative Negative mg/dL [facility] Hemoglobin Ql (U) Negative Negative [facility] KETONE UA (POCT) Negative Negative mg/dL [facility] LEUKOCYTES UA (POCT) Negative Negative [facility] NITRITE UA (POCT) Negative Negative [facility] PH UA (POCT) 5.5 4.5 - 8.0 [facility] Protein Ql (U) Negative Negative mg/dL [facility] SPECIFIC GRAVITY UA (POCT) >=1.030 1.005 - 1.030 [facility] UROBILINOGEN UA (POCT) 0.2 Normal E.U./d L [facility] Location:[facility], [address] [place] [address], [place], [address] [facility] POINT OF CARE [facility] CNOVon 01-31-2025 CNOV Office Visit (WOUCA) GENESIS KLEIN ([id number]) 1985 F Date Time Provider Department 01/31/25 2:15 PM YAMILA LINDSAY During your visit today, we recorded the following information about you: Temperature Pulse Respiration Blood pressure 98.9 degrees 94/minute 22/minute 125/72 Weight Last Period 67 kg 01/24/25 Yamila Lindsay, WARREN.ANNUAL CAMPAIGN MANAGER 01/31/2025 2:23 PM Signed [facility] Subjective Genesis Klein is a 39 year old female. Patient presents with: Cough: Chest congestion, Shortness of Breath, wheeze, increased mucous, x 1.5 weeks Cough The patient is a 39-year-old female presenting with cough, wheezing, dyspnea, and concerns about armpit lesions. Cough and Dyspnea: - Cough and wheezing with dyspnea, worse at night, waking patient around 03:00-04:00. - Requires inhaler use during nocturnal episodes. - Productive cough, sometimes leading to gagging. - Denies fever or chills. - Using Flonase and inhaler for symptom management. - Recent exposure to allergens, including son's cat and dog. - Started allergy shots 3 weeks ago; missed 1 out of 3 doses. - No formal asthma diagnosis; awaiting primary care appointment in February. - Reports similar symptoms seasonally. Arm Lesions: - Noticed scratches on right armpit area, now presenting as painful nodules. - History of similar lesions due to past substance use. - Attempted to shave around scratches; now avoiding shaving. - Denies medication allergies. Review of Systems Respiratory: Positive for cough. Constitutional: (-) fever, (-) chills Ears/Nose/Mouth/Throat: (+) nasal congestion Cardiovascular: (+) chest pain Respiratory: (+) cough, (+) shortness of breath, (+) sputum production Gastrointestinal: (+) gagging Musculoskeletal: (+) back pain, (+) arm pain Skin: (+) painful arm nodules Objective BP 125/72 Pulse 94 Temp 37.2 ?C (98.9 ?F) Resp 22 Wt 67 kg (147 lb 11.3 oz) LMP 01/24/2025 (Approximate) SpO2 97% BMI 27.46 kg/m? PAST MEDICAL HISTORY Diagnosis Date - Abnormal glandular Papanicolaou smear of cervix Abn. Pap smear (cervix) - Allergic rhinitis, cause unspecified Allergy, airborne subst - Generalized anxiety disorder Anxiety, Generalized - Hepatitis C treated PAST SURGICAL HISTORY Procedure Laterality Date - DELIVERY ONLY , low cervical - COLPOSCOPY CERVIX UPPER/ADJACENT VAGINA Colposcopy - CONIZATION CERVIX W/WO DANDC RPR ELTRD EXC LEEP-Cervix - DILATION AND CURETTAGE DXAND/THER NONOBSTETRIC Dilation AND curettage - INDUCED HX - TONSILLECTOMY PRIMARY/SECONDARY Tonsillectomy ALLERGIES Patient has no known allergies. MEDICATIONS - fluticasone (FLONASE ALLERGY RELIEF) 50 mcg/actuation nasal spray Use 2 sprays in each nostril once daily. - doxycycline monohydrate 100 mg tablet Take 1 tablet by mouth two times a day for 7 days. - albuterol HFA (PROVENTIL HFA, VENTOLIN HFA) 90 mcg/actuation inhaler Inhale 2 puffs as instructed every 6 hours as needed for wheezing/shortness of breath. - predniSONE (DELTASONE) 10 mg tablet Take 4 tablets by mouth once daily for 3 days, THEN 3 tablets once daily for 3 days, THEN 1 tablet once daily for 3 days. FAMILY HISTORY Problem Relation Age of Onset - Hypertension Mother - Thyroid Mother Hypothyroid - Diabetes Mother - GI Father GB - Hypertension Father - Lipids Father - GI Sister GB - No Known Problems Brother - Arthritis Maternal Grandmother - Heart Maternal Grandmother BYPASS SURGERY - Lipids Maternal Grandmother - Thyroid Maternal Grandmother Hypothyroid - Diabetes Maternal Grandmother - COPD Maternal Grandmother - Lung Cancer Maternal Grandmother - Lipids Maternal Grandfather - Heart Paternal Grandmother CA - Lung Cancer Paternal Grandmother - Colon Cancer Paternal Grandfather - Prostate Cancer Paternal Grandfather - Thyroid Other MATERNAL 1ST COUSIN BORN WITHOUT THYROID SOCIAL HISTORY[1] Physical Exam Vitals and nursing note reviewed. Constitutional: General: She is not in acute distress. Appearance: Normal appearance. She is not ill-appearing. HENT: Right Ear: Tympanic membrane, ear canal and external ear normal. Left Ear: Tympanic membrane, ear canal and external ear normal. Nose: Nose normal. Mouth/Throat: Mouth: Mucous membranes are moist. Pharynx: Oropharynx is clear. No oropharyngeal exudate or posterior oropharyngeal erythema. Cardiovascular: Rate and Rhythm: Normal rate and regular rhythm. Heart sounds: Normal heart sounds. Pulmonary: Effort: Pulmonary effort is normal. No respiratory distress. Breath sounds: Examination of the right-upper field reveals wheezing. Examination of the left-upper field reveals wheezing. Examination of the right-lower field reveals wheezing. Examination of the left-lower field reve (more content not included)... Normal [facility]AD[facility] ([id number]) 1985 F Date Time Provider Department 12/29/24 AMANDA DE LA VEGA OBGYWKathia During your visit today, we recorded the following information about you: Lissette Badillo RN 12/29/2024 12:54 PM Signed Patient called asking about pap results. Please review. CHRISTI Umanzor Amy, APRN.ANNUAL CAMPAIGN MANAGER 12/29/2024 8:24 PM Signed See result note. Amanda De La Vega APRN.[facility] Allergies As of Date: 12/29/2024 (No Known Allergies) Date Reviewed: 12/22/2024 Reviewed by: Amanda De La Vega APRN.[facility] - Fully Assessed Reason for Visit: Results [95] Prescriptions as of 12/30/2024 - albuterol HFA (PROVENTIL HFA, VENTOLIN HFA) 90 mcg/actuation inhaler Inhale 2 puffs as instructed every 6 hours as needed for wheezing/shortness of breath. Problem List As Of Date 12/29/2024 Noted Resolved Supervision of other normal [Z34.80] [...] risk HPV cervical [R87*01/04/2024 Encounter Status:Closed by LISSETTE BADILLO on 12/30/24 Normal [facility] C. trachomatis+N. gonorrhoea e DNA DARIO+probe Ql (Unsp spec)on 12-22-2024 C. trachomatis rRNA DARIO+probe Ql (Unsp spec) Not detected Normal Not detected [facility] Comment on above: Order Comment: Speci men Type: SWABOrdering Facility: [facility] Address: [address] [place] [address] Performed By: #### 3 6902-5 ####[facility] LABIA [id number] [address] [place] N. gonorrhoeae rRNA DARIO+probe Ql (Unsp spec) Not detected Normal Not detected [facility] Comment on above: Order Comment: Speci men Type: SWABOrdering Facility: [facility] Address: [address] [place] [address] Performed By: #### 3 6902-5 ####[facility] [id number] [place] [address] [place] CNOVon 12-22-2024 CNOV Office Visit (OBGYWM ) GENESIS BRADFORD ([id number]) 1985 F Date Time Provider Department 12/22/24 2:30 PM AMANDA DE LA VEGA During your visit today, we recorded the following information about you: Blood pressure Weight Height Last Period 108/72 66.2 kg 1.562 m 12/02/24 Amanda De La Vega APRN.ANNUAL CAMPAIGN MANAGER 12/22/2024 3:24 PM Signed [employer] Consultant offered: Patient declines. Genesis is a 39 year old who presents for an annual gynecologic exam without complaints. Hepatitis C Exposure: - Patient was treated and cured of hepatitis C a few years ago. - Reports a relapse in April and is concerned about potential re-exposure. - Had testing done at a free clinic about 60 days after the relapse, which was negative. - Requests retesting for hepatitis C and other STDs to ensure no re-exposure. Menses: cycles every 28 days and 4-5 days of flow Sexually active: Yes Contraception: Tubal Ligation HPV: 11/12/2023 other HR positive Last pap smear: 11/12/2023 ASCUS positive. Colposcopy benign. Prior treatment: LEEP History of abnormal pap: Yes Last mammogram: 06/2024 normal at the free clinic OB History Gravida4 Para3 Term1 Preterm1 AB1 Living3 SAB0 IAB1 Ectopic0 Multiple0 Live Births3 Cable Respooler History LMP: 12/02/2024 (Approximate), Having periods Age at Menarche: 12 Age at First : Age at Menopause: Cable Respooler History Comments: Sexual Activity: Yes; Male Contraception: Tubal Ligation Menstrual Tracking History Flowsheet Row Appointment from 11/11/2024 in OB/Gynecology Period Cycle (Days) 28 Period Duration (Days) 4 Menstrual Flow Moderate PAST MEDICAL HISTORY Diagnosis Date Abnormal glandular Papanicolaou smear of cervix Abn. Pap smear (cervix) Allergic rhinitis, cause unspecified Allergy, airborne subst Generalized anxiety disorder Anxiety, Generalized Hepatitis C treated PAST SURGICAL HISTORY Procedure Laterality Date DELIVERY [...] Grandmother Lipids Maternal Grandfather Heart Paternal Grandmother CA Lung Cancer Paternal Grandmother Colon Cancer Paternal Grandfather Prostate Cancer Paternal Grandfather Thyroid Other MATERNAL 1ST COUSIN BORN WITHOUT THYROID SOCIAL HISTORY Social History Tobacco Use Smoking status: Some Days Current packs/day: 1.00 Types: Cigarettes Smokeless tobacco: Never Vaping Use Vaping status: current everyday user Substances: Nicotine Substance Use Topics Alcohol use: Not Currently [...] skin retraction. Allergies and current medication updated:Yes SENSITIVE EXAM: The sensitive examination was discussed with the Patient or Patient's Authorized Airline Mechanic. As applicable, any other physician, advance practice provider, medical student, or other health professional student that will be observing or involved in the sensitive examination for educational or training purposes was discussed with the Patient or Authorized Airline Mechanic. The Patient or Authorized Airline Mechanic has agreed to proceed with the sensitive examination. (Sensitive examination includes inspection and/or palpation of the breasts, pelvis, prostate and anorectal regions). EXAM: BP 108/72 Ht 5' 1.5 (1.56m) Wt 146 lb (66.2kg) LMP 12/02/2024 BMI 27.14 kg/(m2). GENERAL: pleasant, female in no apparent distress HEENT: Normocephalic, atraumatic, mucus membranes moist, and no lesions NECK: Supple, full range of motion, no adenopathy, and thyroid normal DERMATOLOGY: Normal, without lesions, non-icteric, and non-hirsute BREAST: soft, non-tender, symmetric, no dominant mass, normal nipple-areolar complex, no lymphadenopathy, and no nipple discharge CHEST: Normal inspiratory effort ABDOMEN: soft, non-tende (more content not included)... Normal [facility] HBV surface Ag Ser Qlon 11-24 HBV surface Ag Ql (S) Negative Normal Negative [facility] Comment on above: Order Comment: Speci men Type: BLOOD SPECIMENOrdering Facility: [facility] Address: [address] [place] [address] Performed By: #### 5 195-3, 47181-2, 61745-8 ####[facility] LABCLIA [id number] [place] [address] [place] HCV Ab Ser Qlon 12-22-2024 HCV Ab Ql (S) Positive Abnormal Negative [facility] Comment on above: Order Comment: Speci men Type: BLOOD SPECIMENOrdering Facility: [facility] Address: [address] [place] [address] Performed By: #### 1 6128-1, 91610-0 ####[facility] LABCLIA [id number] [place] [address] [place] HCV RNA DARIO+probe Qnon 12-22 HCV RNA DARIO+probe Ql Not detected Normal Not detected [facility] Comment on above: Order Comment: Speci men Type: BLOOD SPECIMENOrdering Facility: [facility] Address: [address] [place] [address] Performed By: #### 1 6128-1, 93999-2 ####[facility] LABCLIA [id number] [place] [address] [place] HIGH RISK HUMAN PAPILLOMA BHARTI (HPV), PCR FOR DETECTION AND GENOTYPINGon 12-22-2024 HPV 16 Ag Ql (Unsp spec) Not detected Normal Not detected [facility] Comment on above: Order Comment: Speci men Type: FLUID SPECIMENOrdering Facility: [facility] Address: [address] [place] [address] Performed By: #### H PVHRT ####[facility] LABCLIA [id number] [place] [address] [place] HPV 18 Ag Ql (Unsp spec) Not detected Normal Not detected [facility] Comment on above: Order Comment: Speci men Type: FLUID SPECIMENOrdering Facility: [facility] Address: [address] [place] [address] Performed By: #### H PVHRT ####[facility] LABIA [id number] [place] [address] [place] HPV 31+33+35+39+45+51+52+5 6+58+59+66+68 DNA DARIO+probe Ql (Cvx) Detected Abnormal Not detected [facility] Comment on above: Order Comment: Speci men Type: FLUID SPECIMENOrdering Facility: [facility] Address: [address] [place] [address] Result Comment: High Risk HPV Other Type includes HPV types 31, 33, 35, 39, 45, 51, 52, 56, 58, 59, 66 and 68. Performed By: #### H PVHRT ####[facility] LABIA [id number] [place] [address] [place] HIV 1+2 Ab IA Qlon 5 HIV 1 and 2 Ab IA.rapid Nom (S/P/Bld) Normal [facility] Comment on above: Order Comment: Speci men Type: BLOOD SPECIMENOrdering Facility: [facility] Address: [address] [place] [address] Result Comment: Test not indicated. Performed By: #### 5 195-3, 17878-2, 82486-0 ####[facility] LABCLIA [id number] [place] [address] [place] HIV 1+2 Ab+HIV1 p24 Ag IA Ql Non-Reactive Normal Nonreactive [facility] Comment on above: Order Comment: Speci men Type: BLOOD SPECIMENOrdering Facility: [facility] Address: [address] [place] [address] Performed By: #### 5 195-3, 50351-6, 81148-5 ####[facility] [facility] LABIA [id number] [address] [address] [place] HIV immunoassay testing algorithm interpretation (S/P/Bld) [Interp] Normal [facility] Comment on above: Order Comment: Speci men Type: BLOOD SPECIMENOrdering Facility: [facility] Address: [address] [place] [address] Result Comment: No e vidence of HIV-1 or HIV-2 infection. Should recent infection be suspected, repeat testing may be considered 2-3 weeks after this draw. [place] Rev. Code 3701.243(E): This information has been disclosed to you from confidential records protected from disclosure by state law. You shall make no further disclosure of this information without the specific, written, and informed release of the individual to whom it pertains or as otherwise permitted by state law. A general authorization for the release of medical or other information is not sufficient for the purpose of the release of HIV test results or diagnoses. Performed By: #### 5 195-3, 50549-9, 59259-8 ####[facility] LABIA [id number] [place] [id number] [place] PAP TESTon 12-22-2024 ADEQUACY Normal [facility] Comment on above: Order Comment: Speci men Type: FLUID SPECIMENOrdering Facility: [facility] Address: [address] [place] [address] Result Comment: Sati sfactory for interpretation. Transformation zone present Performed By: #### L [id number] ####[facility] LABIA [id number] [address] [address] [place] CASE REPORT Normal [facility] Comment on above: Order Comment: Speci men Type: FLUID SPECIMENOrdering Facility: [facility] Address: [address] [place] [address] Result Comment: Gyne cologic Cytology Report Case: [id number] Authorizing Provider: Amanda De La Vega APRN.ANNUAL CAMPAIGN MANAGER Collected: 12/22/2024 03:20 PM Ordering Location: OB/Gynecology Received: 12/22/2024 04:18 PM First Screen: April Person CT, ASCP Rescreen: Lissette Alfonso CT, ASCP Specimen: Pap Test, ThinPrep, Cervix Performed By: #### L [id number] ####[facility] LABCLIA [id number] [address] [address] [place] CLINICAL HISTORY, CYTOLOGY, FREIGHT AND PASSENGER AGENT Previous ASCUS Normal [facility] Comment on above: Order Comment: Speci men Type: FLUID SPECIMENOrdering Facility: [facility] Address: [address] [place] [address] Result Comment: Prev ious LEEP Positive HPV Performed By: #### L [id number] ####[facility] LABCLIA [id number] [place] [id number] [place] FINAL PERFORMING LAB Normal [facility] Comment on above: Order Comment: Speci men Type: FLUID SPECIMENOrdering Facility: [facility] Address: [address] [place] [address] Result Comment: Tech nical component, set decorator screening performed at: [facility], [address] [place] [address] CLIA: [id number] Diagnostic interpretation performed at: [facility], [address] [place] [address] CLIA# [id number] Harness Brusher: Gio Richardson MD Performed By: #### L [id number] ####[facility] LABCLIA [id number] [address] [address] [place] INTERPRETATION, CYTOLOGY, FREIGHT AND PASSENGER AGENT Normal [facility] Comment on above: Order Comment: Speci men Type: FLUID SPECIMENOrdering Facility: [facility] Address: [address] [place] [address] Result Comment: Nega tive for intraepithelial lesion or malignancy. at 1527 EDT Performed By: #### L [id number] ####[facility] LABCLIA [id number] [address] [address] [place] LMP 12/02/2024 Normal [facility] Comment on above: Order Comment: Speci men Type: FLUID SPECIMENOrdering Facility: [facility] Address: [address] [place] [address] Performed By: #### L [id number] ####[facility] LABCLIA [id number] [address] [place] [address] [place] PAP DISCLAIMER COMMENT The Pap Smear is a screening test for cervical cancer. False negative results occur with all screening tests, emphasizing the need for rescreening at recommended intervals, and clinical correlation. Normal [facility] Comment on above: Order Comment: Speci men Type: FLUID SPECIMENOrdering Facility: [facility] Address: [address] [place] [address] Performed By: #### L [id number] ####[facility] LABIA [id number] [address] [place] [address] [place] PAP SKIP TENDER COMMENT This specimen has be en analyzed by the FDA-approved Bitex.laTM System, which uses digital imaging and an enhanced artificial intelligence image analysis algorithm to identify bull of interest on the microscopic slide, to assist the gas system operator and pathologist in evaluating cells on ThinPrep Pap tests. Following analysis, bull of interest on the microscopic slide selected by the algorithm are reviewed by a gas system operator. If a sample requires hierarchical review, the pathologist will review the same bull of interest selected by the algorithm prior to final interpretation. Normal [facility] Comment on above: Order Comment: Speci men Type: FLUID SPECIMENOrdering Facility: [facility] Address: [address] [place] [address] Performed By: #### L [id number] ####[facility] LABIA [id number] [address] [place] [address] [place] Reagin and Treponema pallidu m IgG and IgM [Interp]on 12-22-2024 T. pallidum IgG+IgM IA Ql (S) Non-Reactive Normal Nonreactive [facility] Comment on above: Order Comment: Abiola seaman Type: BLOOD SPECIMENOrdering Facility: [facility] Address: [address] [place] [address] Performed By: #### 5 195-3, 37398-9, 20110-2 ####[facility] LABIA [id number] [place] [id number] [place] Reagin+T pallidum IgG+IgM Se rPl-Impon 12-22-2024 Reagin and Treponema pallidum IgG and IgM [Interp] Cannot exclude recent Treponemal infection if specimen collected within 7-10 days after appearance of suspect lesions or 2-3 weeks after an exposure. Clinical correlation is required. Normal [facility] Comment on above: Order Comment: Specryann seaman Type: BLOOD SPECIMENOrdering Facility: [facility] Address: [address] [place] [address] Performed By: #### 5 195-3, 68380-4, 51228-7 ####[facility] LABIA [id number] [place] [id number] [place] Brain/Head without Contrasto n 11-08-2024 Brain/Head without Contrast [facility] Imaging Services [address] [place] [address] Brain/Head without Contrast MR#: [id number] Acct: [id number] Name: GENESIS BRADFORD Rep #: [id number] : 1985 F 39 From: Linda fitzpatrick MD PCP: Care Physician,No Primary Status: [facility] Study: Brain/Head without Contrast Date of Exam: 10/23 12/16 Exam# [id number] Ordering Dr: Christopher Fenton DO PROCEDURE: BRAIN/HEAD WITHOUT CONTRAST 11/08/2024 REASON FOR EXAM: HEADACHE TECHNIQUE: BRAIN/HEAD WITHOUT CONTRAST Coronal and Sagittal reconstruction series were provided. One or more dose reduction techniques were used (e.g., Automated exposure control, adjustment of the mA and/or kV according to patient size, use of iterative reconstruction technique. RADIATION DOSE SUMMARY: CTDlvol: mGy DLP: mGycm COMPARISON: 10-16-2024 FINDINGS: The visualized brain parenchyma shows normal appearance. No focal parenchymal abnormalities are demonstrated. Danielle-white matter differentiation is maintained. Normal CT appearance of the posterior fossa structures. No intracerebral or extra-axial hematoma. No midline shifts or deformity. Normal size and configuration of the cerebral ventricles. No definite calvarial fractures. The osseous structures in the skull base are unremarkable. Paranasal sinuses are unremarkable. Resolution of the left frontal subcutaneous hematoma/edema. CT/Brain/Head without Contrast IMPRESSION: No intra or extra-axial hematomas. No acute cerebrovascular insult. If there is high clinical suspicion, correlate to MRI Unremarkable non-enhanced CT study for the brain. Reading Location: [place] [address] CC: Christopher Fenton DO; No Primary Care Physician Vacuum Pan Tender: Signed Normal [facility] CBC W/Diff, Automatedon 10-23 Absolute Lymph 3.90 X10 3/uL Normal 0.83-4.51 [facility] Comment on above: Performed By: #### L 100.0100, L501.6710, L101.9900 #### [facility] [address] [place], [address] Absolute Neut 3.2 X10 3/uL Normal 2.0-7.7 [facility] Comment on above: Performed By: #### L 100.0100, L501.6710, L101.9900 #### [facility] [address] [place], [address] Basophils/100 WBC (Bld) 0.6 % Normal 0-1 [facility] Comment on above: Performed By: #### L 100.0100, L501.6710, L101.9900 #### [facility] [address] [place], [address] Eosinophils/100 WBC (Bld) 3.8 % Normal 0-5 [facility] Comment on above: Performed By: #### L 100.0100, L501.6710, L101.9900 #### [facility] [address] [place], [address] Erythrocyte distribution width (RBC) [Ratio] 14.9 % High 11.6-14.6 [facility] Comment on above: Performed By: #### L 100.0100, L501.6710, L101.9900 #### [facility] [address] [place], [address] Hematocrit (Bld) [Volume fraction] 35.4 % Low 37-47 [facility] Comment on above: Performed By: #### L 100.0100, L501.6710, L101.9900 #### [facility] [address] [place], [address] Hemoglobin (Bld) [Mass/Vol] 11.0 g/dL Low 12.0-15.0 [facility] Comment on above: Performed By: #### L 100.0100, L501.6710, L101.9900 #### [facility] [address] [place], [address] IG% 0.500 Normal 0.0-0.9 [facility] Comment on above: Result Comment: IG% - Immature Granulocytes (promyelocytes, myelocytes and metamyelocytes) > 1% indicates that a LEFT SHIFT is Present. Performed By: #### L 100.0100, L501.6710, L101.9900 #### [facility] [address] [place], [address] Lymphocytes/100 WBC (Bld) 48.1 % High 19-41 [facility] Comment on above: Performed By: #### L 100.0100, L501.6710, L101.9900 #### [facility] [address] [place], [address] MCH (RBC) [Entitic mass] 24.4 pg Low 27.0-32.0 [facility] Comment on above: Performed By: #### L 100.0100, L501.6710, L101.9900 #### [facility] [address] [place], [address] MCHC (RBC) [Mass/Vol] 31.1 g/dL Low 32-36 [facility] Comment on above: Performed By: #### L 100.0100, L501.6710, L101.9900 #### [facility] [address] [place], [address] MCV (RBC) [Entitic vol] 78.5 fL Low 81-99 [facility] Comment on above: Performed By: #### L 100.0100, L501.6710, L101.9900 #### [facility] [address] [place], [address] Monocytes/100 WBC (Bld) 7.5 % Normal 0-10 [facility] Comment on above: Performed By: #### L 100.0100, L501.6710, L101.9900 #### [facility] [address] [place], [address] Neutrophils/100 WBC (Bld) 39.5 % Low 47-70 [facility] Comment on above: Performed By: #### L 100.0100, L501.6710, L101.9900 #### [facility] [address] [place], [address] Nucleated RBC (Bld) [#/Vol] 0 10*3/uL Normal 0-5 [facility] Comment on above: Performed By: #### L 100.0100, L501.6710, L101.9900 #### [facility] [address] [place], [address] Platelet mean volume (Bld) [Entitic vol] 10.5 fL Normal 6.2-12.0 [facility] Comment on above: Performed By: #### L 100.0100, L501.6710, L101.9900 #### [facility] [address] [place], [address] Platelets (Bld) [#/Vol] 165 10*3/uL Normal 150-450 [facility] Comment on above: Performed By: #### L 100.0100, L501.6710, L101.9900 #### [facility] [address] [place], [address] RBC (Bld) [#/Vol] 4.51 10*6/uL Normal 4.2-5.4 [facility] Comment on above: Performed By: #### L 100.0100, L501.6710, L101.9900 #### [facility] [address] [place], [address] RDW SD 42.9 fl Normal 35.1-43.9 [facility] Comment on above: Performed By: #### L 100.0100, L501.6710, L101.9900 #### [facility] [address] [place], [address] WBC (Bld) [#/Vol] 8.1 10*3/uL Normal 4.4-11.0 [facility] Comment on above: Performed By: #### L 100.0100, L501.6710, L101.9900 #### [facility] [address] [place], [address] CRPon 11-08-2024 C-REACTIVE PROT < 3.00 Normal 0.0-3.0 [facility] Comment on above: Performed By: #### L 100.0100, L501.6710, L101.9900 #### [facility] [address] [place], [address] Emergency Department Summary on 11-08-2024 Emergency Department Summary [facility] Medical Records Department [address] [place] [address] Emergency Department Summary 11/08/24 MR#: [id number] Acct: [id number] Name: GENESIS BRADFORD Rep #: [id number] : 1985 39 From: Christopher Fenton DO PCP: Care Physician,No Primary Status:DEP ER Location: ED HPI History of Present Illness Chief Complaint: Headache Informant: patient Narrative Narrative: Patient is a 39-year-old female with past medical history of of polysubstance abuse and hepatitis C as well as occasional headache. She states that over the past week she has been having intermittent left-sided headache. She denies any trauma or sick symptoms. She states that the headache typically will be sharp in nature and last for a few minutes and then resolve. She denies any family history of brain tumor or aneurysm. She states that as a headache has been recurrent she was concerned there may be some type of infectious process or brain abnormality and therefore comes in for evaluation [facility] Medical History Accidental overdose Active intravenous drug use Anemia Elevated LFTs History of hepatitis C History of heroin use History of methamphetamine use Methamphetamine dependence Opiate withdrawal Severe protein-calorie malnutrition Status post elective Substance abuse Home Medications ???Medication ???Instructions ???Recorded ???Last Taken ???Type albuterol sulfate 90 mcg/actuation 2 puff inhalation Q6H PRN PRN Unknown History aerosol inhaler wheezing multivitamin with folic acid 400 1 tab PO DAILY 11/07/24 Unknown Hi story mcg tablet (Tab-A-Nasir) omeprazole 20 mg capsule,delayed 20 mg PO DAILY 11/07/24 Unknown Hi story release ropinirole 1 mg tablet 1 mg PO QHS 11/07/24 Unknown Histo ry Allergy/AdvReac Type Severity Reaction Status Date / Time ropinirole (From Requip) Allergy Shortness Verified 11/07/24 21:33 of breath Family History Other Cancer Colon cancer Diabetes Heart disease Surgical History Status post Status post tonsillectomy Status post tubal ligation Social History Smoking Status: Current every day smoker tobacco type: cigarettes substance use type: crack/cocaine, IV drugs and methamphetamine ROS ROS ED Constitutional Constitutional ED: Denies chills or fever(s) Eyes Eyes: Denies blurry vision or change in vision ENT ENT ED: Denies rhinorrhea or sore throat Cardiovascular Cardiovascular: Denies chest pain Respiratory/Chest Respiratory/Chest: Denies cough or dyspnea Gastrointestinal Gastrointestinal: Denies abdominal pain, diarrhea, nausea or vomiting Genitourinary Genitourinary ED: Denies dysuria Musculoskeletal Musculoskeletal: Denies myalgias Integumentary Denies rash Neurologic Neurologic: Reports headache(s); Denies paresthesias or weakness Hematologic/Lymphatic Hematologic/Lymphatic: Denies easy bleeding or easy bruising EXAM Physical Exam Const Vital Signs: 11/07/24 21:34 11/08/24 01:32 11/08/24 01:35 Temperature 97.2 F L 98.9 F Temperature Source Temporal Pulse Rate 91 62 67 Respiratory Rate 18 16 12 Blood Pressure 108/63 96/65 96/78 Blood Pressure Mean 78 75 84 Pulse Ox 98 98 95 Oxygen Delivery Method Room Air Room Air Positive well nourished and well developed General Appearance ED: well developed; Negative for pallor HEENT Reports TM's clear HEENT Narrative: Normocephalic atraumatic No pain on palpation along the left temporal region No increased pain with palpation over top the maxillary frontal or ethmoid sinuses Tympanic Membrane ED: Yes TM's clear Eyes PERRL and EOMs intact bilaterally General Eye ED: Negative for scleral icterus Neck supple Neck Narrative: No nuchal rigidity or meningeal sign Resp normal respiratory effort and clear to auscultation bilaterally Cardio regular rate and regular rhythm Extremity normal to inspection Neuro oriented x3, CN's II-XII intact bilaterally and no sensory deficits noted Neuro Narrative: GCS of 15 Cranial nerves II through XII are grossly intact without focal neurologic deficit No pronator drift no dysmetria no truncal ataxia NIH stroke scale score of 0 Sensorium / Orientation: alert Motor Exam: strength 5/5 throughout Psych mental status grossly normal Skin no rashes or lesions noted and no wounds General Skin Exam: Negative for jaundice or pallor MDM MDM MDM Narrative Medical decision making narrative: The patient arrived with stable vitals and reported intermittent headache al (more content not included)... Normal [facility] Erythrocyte Sed Rateon 11-08 SED RATE < 1 Normal 0-30 [facility] Comment on above: Performed By: #### L 100.0100, L501.6710, L101.9900 #### [facility] [address] [place], [address] Absolute lymphocyte countOrd ered By: Christopher Fenton on 11-07-2024 Lymphocytes Auto (Unsp spec) [#/Vol] 3.90 10*3/uL 0.83-4.51 [facility] Absolute neutrophil countOrd ered By: Christopher Fenton on 11-07-2024 Neutrophils (Bld) [#/Vol] 3.2 10*3/uL 2.0-7.7 [facility] Automated lymphocyte count a s percentage of total leukocytesOrdered By: Christopher Fenton on 11-07-2024 Lymphocytes/100 WBC Auto (Unsp spec) 48.1 % High 19-41 [facility] Basophil percentageOrdered B y: Christopher Fenton on 11-07-2024 Basophils/100 WBC (Bld) 0.6 % 0-1 [facility] Eosinophil percentageOrdered By: Christopher Fenton on 11-07-2024 Eosinophils/100 WBC (Bld) 3.8 % 0-5 [facility] Erythrocyte distribution wid th ratioOrdered By: Christopher Fenton on 11-07-2024 Erythrocyte distribution width (RBC) [Ratio] 14.9 % High 11.6-14.6 [facility] Erythrocyte distribution wid th standard deviationOrdered By: Christopher Fenton on 11-07-2024 Erythrocyte distribution width (RBC) [Ratio] 42.9 fl 35.1-43.9 [facility] Erythrocyte sedimentation ra teOrdered By: Christopher Fenton on 11-07-2024 ESR (Bld) [Velocity] mm/h 0-30 [facility] Hematocrit Auto (Bld) [Volum e fraction]Ordered By: Christopher Fenton on 11-07-2024 Hematocrit (Bld) [Volume fraction] 35.4 % Low 37-47 [facility] Hemoglobin measurementOrdere d By: Christopher Fenton on 11-07-2024 Hemoglobin (Bld) [Mass/Vol] 11.0 g/dL Low 12.0-15.0 [facility] Immature granulocytes/100 WB C Auto (Bld)Ordered By: Christopher Fenton on 11-07-2024 Immature granulocytes/100 WBC (Bld) 0.500 % 0.0-0.9 [facility] Comment on above: IG% - Immature Granu locytes (promyelocytes, myelocytes and metamyelocytes) > 1% indicates that a LEFT SHIFT is Present. MCV (mean corpuscular volume ) determinationOrdered By: Christopher Fenton on 11-07-2024 MCV (RBC) [Entitic vol] 78.5 fL Low 81-99 [facility] Mean corpuscular hemoglobin (MCH) determinationOrdered By: Christopher Fenton on 11-07-2024 MCH (RBC) [Entitic mass] 24.4 pg Low 27.0-32.0 [facility] Mean corpuscular hemoglobin concentration (MCHC) determinationOrdered By: Christopher Fenton on 11-07-2024 MCHC (RBC) [Mass/Vol] 31.1 g/dL Low 32-36 [facility] Mean platelet volume determi nationOrdered By: Christopher Fenton on 11-07-2024 Platelet mean volume (Bld) [Entitic vol] 10.5 fL 6.2-12.0 [facility] Monocyte percentageOrdered B y: Christopher Fenton on 11-07-2024 Monocytes/100 WBC (Bld) 7.5 % 0-10 [facility] Neutrophil percentageOrdered By: Christopher Fenton on 11-07-2024 Neutrophils/100 WBC (Bld) 39.5 % Low 47-70 [facility] Nucleated red blood cell per centageOrdered By: Christopher Fenton on 11-07-2024 Nucleated RBC/100 WBC (Bld) [Ratio] 0 % 0-5 [facility] Platelet countOrdered By: Tamiko Fenton on 11-07-2024 Platelets (Bld) [#/Vol] 165 10*3/uL 150-450 [facility] RBC Auto (Bld) [#/Vol]Ordere d By: Christopher Fenton on 11-07-2024 RBC (Bld) [#/Vol] 4.51 10*6/uL 4.2-5.4 [facility] Serum or plasma C reactive p rotein measurement (mass/volume)Ordered By: Christopher Fenton on 11-07-2024 CRP [Mass/Vol] mg/L 0.0-3.0 [facility] White blood cell (WBC) count Ordered By: Christopher Fenton on 11-07-2024 WBC (Bld) [#/Vol] 8.1 10*3/uL 4.4-11.0 [facility] CNOVon 09-03-2024 CNOV Office Visit (UCTR ) GENESIS BRADFORD ([id number]) 1985 F Date Time Provider Department 09/03/24 2:45 PM MARCO ANTONIO ARDON [facility] During your visit today, we recorded the following information about you: Temperature Pulse Respiration Blood pressure 98.5 degrees 87/minute 16/minute 102/68 Weight 65.1 kg Marco Antonio Ardon APRN.ANNUAL CAMPAIGN MANAGER 09/03/2024 3:30 PM Signed Subjective HPI Nontoxic-appearing [...] Grandmother Lipids Maternal Grandfather Heart Paternal Grandmother CA Lung Cancer Paternal Grandmother Colon Cancer Paternal [...] erythema, ri (more content not included)... Normal [facility] UA DIP,URINE HCG (POC)on Beta HCG ( test) Ql (U) Negative Negative [facility] Comment on above: Location:[address], [address] [employer] (POCT) Internal QC [place] [facility] Location:[address], [address] [facility] POINT OF CARE [facility] Hepatitis C,RNA PCR Viral Lo consumer relations specialist 08-13-2024 HCV log 10 TNP Normal . [facility] Comment on above: Performed By: #### L 100.0100, L501.6710, L101.9900 #### [facility] [address] [place], [address] HCV QT RNA PCR Not detected Normal . [facility] Comment on above: Performed By: #### L 100.0100, L501.6710, L101.9900 #### [facility] [address] [place], [place], [id number] TEST INFO: Comment Normal . [facility] Comment on above: Result Comment: The quantitative range of this assay is 15 IU/mL to 100 million IU/mL. Performed at: [address] [id number] Security Intern: Coby De Los Santos MD, Phone: [phone] Performed By: #### L 100.0100, L501.6710, L101.9900 #### [facility] [address] [place], [place], [id number] Breast imaging reportOrdered By: Keith Chow on 08-12-2024 Study report [facility] Imaging Services [address] [place], [place] [address] SCRN MAMM (CAD)W/ESTEVAN BILAT MR#: [id number] Acct: [id number] Name: GENESIS BRADFORD Rep #: [id number] : 1985 F 39 From: Jassi Chow MD PCP: JEANETTE Terry, ORACLE SCM CONSULTANT-C [facility] Study:SCRN MAMM (CAD)W/ESTEVAN BILAT Date of Exa m: 08/11/24 Exam# [id number] Ordering Dr: Aruna García ORACLE SCM CONSULTANT-C EXAM: SCRN MAMM (CAD)W/ESTEVAN BILAT DATE: 08/11/2024 [...] be mailed to the patient. Reading Location: [facility] CC: [facility] ORACLE SCM CONSULTANT-C Aruna García ~ Vacuum Pan Tender: Signed [facility] Addendum DocumentOrdered By: [facility] Aruna García on 08-11-2024 Hepatitis C RNA Qnt (PCR) Test Info Comment . [facility] Comment on above: The quantitative ran ge of this assay is 15 IU/mL to 100million IU/mL.Performed at: [facility] [address] [id number] Director: Coby De Los Santos MD, Phone: [phone] HCV RNA DARIO+probe QnOrdered By: [facility] Aruna García on 08-11-2024 Hepatitis C RNA Quantitative (PCR) Not detected . [facility] Hepatitis C viral load measu rementOrdered By: [facility] Aruna García on 08-11-2024 Hepatitis C RNA (PCR) IU log10 TNP [facility] Comment on above: Test not performed No Panel InformationOrdered By: [facility] Aruna García on 08-11-2024 Addendum Document Comment . [facility] Comment on above: The quantitative ran ge of this assay is 15 IU/mL to 100million IU/mL.Performed at: - [address] [id number] Director: Coby De Los Santos MD, Phone: [phone] SCRN MAMM (CAD)W/ESTEVAN BILATo n 08-11-2024 SCRN MAMM (CAD)W/ESTEVAN BILAT [facility] Imaging Services [address] [place], [place] [id number] SCRN MAMM (CAD)W/ESTEVAN BILAT MR#: [id number] Acct: [id number] Name: GENESIS BRADFORD Rep #: [id number] : 1985 F 39 From: Keith wakefield MD PCP: JEANETTE Terry, ORACLE SCM CONSULTANT-C Status: REG CLI Study: SCRN MAMM (CAD)W/ESTEVAN BILAT Date of Exam: 07/24 Exam# [id number] Ordering Dr: Aruna García [facility] ORACLE SCM CONSULTANT-C EXAM: SCRN MAMM (CAD)W/ESTEVAN BILAT DATE: 08/11/2024 [...] be mailed to the patient. Reading Location: [place] [address] CC: [facility] ORACLE SCM CONSULTANT-C Aruna García Vacuum Pan Tender: Signed Normal [facility] Serum or plasma hepatitis C virus RNA measurement by probe and target amplification mOrdered By: [facility] Aruna García on 08-11-2024 HCV RNA DARIO+probe Qn Not detected . [facility] HIV - WCHon 07-12-2024 HIV Non-Reactive Normal Nonreactive [facility] Comment on above: Performed By: #### L 3890.6005, L509.8000 #### [facility] [address] [place], [place], [address] L509.8000on 07-12-2024 Syphilis Abs Non-Reactive Normal [facility] Comment on above: Performed By: #### L 3890.6005, L509.8000 #### [facility] [address] [place], [place], [address] Hepatitis B/C Profile VIIIon 07-11-2024 HEP B CORE,TOT Positive Abnormal Negative [facility] Comment on above: Performed By: #### L 100.0100, L501.6710, L101.9900 #### [facility] [address] [place], [address] Hep B Madelin AB Reactive Normal . [facility] Comment on above: Result Comment: Non Reactive: Not immune to HBV infection. Equivocal: Unable to determine if anti-HBs is present at levels consistent with immunity. Reactive: Anti-HBs concentration detected at greater than 10 mIU/mL. Individual is considered to be immune to infection with HBV. Performed By: #### L 100.0100, L501.6710, L101.9900 #### [facility] [address] [place], [address] HEP B SURF AG Negative Normal Negative [facility] Comment on above: Performed By: #### L 100.0100, L501.6710, L101.9900 #### [facility] [address] [place], [address] HEP C Antibody Reactive Abnormal Non Reactive [facility] Comment on above: Performed By: #### L 100.0100, L501.6710, L101.9900 #### [facility] [address] [place], [address] Absolute neutrophil countOrd ered By: [facility] Aruna García on 07-07-2024 Neutrophils (Bld) [#/Vol] 3.5 10*3/uL 2.0-7.7 [facility] Albumin to globulin ratioOrd ered By: [facility] Aruna García on 07-07-2024 Albumin/Globulin [Mass ratio] 0.9 {ratio} 0.9-2.4 [facility] Basophil percentageOrdered B y: [facility] Aruna García on 07-07-2024 Basophils/100 WBC (Bld) 1.1 % High 0-1 [facility] Bilirubin, totalOrdered By: [facility] Aruna García on 07-07-2024 Bilirubin [Mass/Vol] 0.10 mg/dL Low 0.20-1.00 [facility] Comment on above: For patients on eltr ombopag therapy, use of Dimension Levant TBIL is not recommended. Blood urea nitrogen (BUN)/cr eatinine ratioOrdered By: [facility] Aruna García on 07-07-2024 Urea nitrogen/Creatinine [Mass ratio] 11.6 mg/mg 10-20 [facility] CBC W/Diff, Automatedon 06-25 Absolute Lymph 1.88 X10 3/uL Normal 0.83-4.51 [facility] Comment on above: Performed By: #### L 100.0100, L501.6710, L101.9900 #### [facility] [address] [place], [address] Absolute Neut 3.5 X10 3/uL Normal 2.0-7.7 [facility] Comment on above: Performed By: #### L 100.0100, L501.6710, L101.9900 #### [facility] [address] [place], [address] Basophils/100 WBC (Bld) 1.1 % High 0-1 [facility] Comment on above: Performed By: #### L 100.0100, L501.6710, L101.9900 #### [facility] [address] [place], [address] Eosinophils/100 WBC (Bld) 8.7 % High 0-5 [facility] Comment on above: Performed By: #### L 100.0100, L501.6710, L101.9900 #### [facility] [address] [place], [address] Erythrocyte distribution width (RBC) [Ratio] 14.9 % High 11.6-14.6 [facility] Comment on above: Performed By: #### L 100.0100, L501.6710, L101.9900 #### [facility] [address] [place], [address] Hematocrit (Bld) [Volume fraction] 36.8 % Low 37-47 [facility] Comment on above: Performed By: #### L 100.0100, L501.6710, L101.9900 #### [facility] [address] [place], [address] Hemoglobin (Bld) [Mass/Vol] 11.5 g/dL Low 12.0-15.0 [facility] Comment on above: Performed By: #### L 100.0100, L501.6710, L101.9900 #### [facility] [address] [place], [address] IG% 0.300 Normal 0.0-0.9 [facility] Comment on above: Result Comment: IG% - Immature Granulocytes (promyelocytes, myelocytes and metamyelocytes) > 1% indicates that a LEFT SHIFT is Present. Performed By: #### L 100.0100, L501.6710, L101.9900 #### [facility] [address] [place], [address] Lymphocytes/100 WBC (Bld) 26.9 % Normal 19-41 [facility] Comment on above: Performed By: #### L 100.0100, L501.6710, L101.9900 #### [facility] [address] [place], [address] MCH (RBC) [Entitic mass] 25.5 pg Low 27.0-32.0 [facility] Comment on above: Performed By: #### L 100.0100, L501.6710, L101.9900 #### [facility] [address] [place], [address] MCHC (RBC) [Mass/Vol] 31.3 g/dL Low 32-36 [facility] Comment on above: Performed By: #### L 100.0100, L501.6710, L101.9900 #### [facility] [address] [place], [address] MCV (RBC) [Entitic vol] 81.6 fL Normal 81-99 [facility] Comment on above: Performed By: #### L 100.0100, L501.6710, L101.9900 #### [facility] [address] [place], [address] Monocytes/100 WBC (Bld) 13.1 % High 0-10 [facility] Comment on above: Performed By: #### L 100.0100, L501.6710, L101.9900 #### [facility] [address] [place], [address] Neutrophils/100 WBC (Bld) 49.9 % Normal 47-70 [facility] Comment on above: Performed By: #### L 100.0100, L501.6710, L101.9900 #### [facility] [address] [place], [address] Nucleated RBC (Bld) [#/Vol] 0 10*3/uL Normal 0-5 [facility] Comment on above: Performed By: #### L 100.0100, L501.6710, L101.9900 #### [facility] [address] [place], [address] Platelet mean volume (Bld) [Entitic vol] 9.3 fL Normal 6.2-12.0 [facility] Comment on above: Performed By: #### L 100.0100, L501.6710, L101.9900 #### [facility] [address] [place], [address] Platelets (Bld) [#/Vol] 371 10*3/uL Normal 150-450 [facility] Comment on above: Performed By: #### L 100.0100, L501.6710, L101.9900 #### [facility] [address] [place], [address] RBC (Bld) [#/Vol] 4.51 10*6/uL Normal 4.2-5.4 [facility] Comment on above: Performed By: #### L 100.0100, L501.6710, L101.9900 #### [facility] [address] [place], [address] RDW SD 44.6 fl High 35.1-43.9 [facility] Comment on above: Performed By: #### L 100.0100, L501.6710, L101.9900 #### [facility] [address] [place], [address] WBC (Bld) [#/Vol] 7.0 10*3/uL Normal 4.4-11.0 [facility] Comment on above: Performed By: #### L 100.0100, L501.6710, L101.9900 #### [facility] [address] [place], [address] Carbon dioxide measurementOr dered By: [facility] Aruna García on 07-07-2024 CO2 [Moles/Vol] 25.0 mmol/L 21.0-32.0 [facility] Chlamydia and Neisseria gono rrhoeae detection by PCROrdered By: [facility] Aruna García on 07-07-2024 Chlamydia/Neisseria (PCR) [facility] Chloride measurementOrdered By: [facility] Aruna García on 07-07-2024 Chloride [Moles/Vol] 106 mmol/L 98-107 [facility] Comprehensive Metabolic Prof ilon 07-07-2024 Albumin [Mass/Vol] 3.7 g/dL Normal 3.2-5.0 [facility] Comment on above: Performed By: #### L 100.0100, L501.6710, L101.9900 #### [facility] [address] [place], [address] Albumin/Globulin [Mass ratio] 0.9 {ratio} Normal 0.9-2.4 [facility] Comment on above: Performed By: #### L 100.0100, L501.6710, L101.9900 #### [facility] [address] [place], [address] ALK P 65 U/L Normal 45-117 [facility] Comment on above: Performed By: #### L 100.0100, L501.6710, L101.9900 #### [facility] [address] [place], [address] ALT [Catalytic activity/Vol] 25 U/L Normal 13-56 [facility] Comment on above: Performed By: #### L 100.0100, L501.6710, L101.9900 #### [facility] [address] [place], [address] AST [Catalytic activity/Vol] 26 U/L Normal 15-37 [facility] Comment on above: Performed By: #### L 100.0100, L501.6710, L101.9900 #### [facility] [address] [place], [address] Bilirubin [Mass/Vol] 0.10 mg/dL Low 0.20-1.00 [facility] Comment on above: Result Comment: For patients on eltrombopag therapy, use of Dimension Levant TBIL is not recommended. Performed By: #### L 100.0100, L501.6710, L101.9900 #### [facility] [address] [place], [address] BUN/CRE 11.6 RATIO Normal 10-20 [facility] Comment on above: Performed By: #### L 100.0100, L501.6710, L101.9900 #### [facility] [address] [place], [address] CA,Total 8.9 mg/dL Normal 8.5-10.1 [facility] Comment on above: Performed By: #### L 100.0100, L501.6710, L101.9900 #### [facility] [address] [place], [address] Chloride [Moles/Vol] 106 mmol/L Normal 98-107 [facility] Comment on above: Performed By: #### L 100.0100, L501.6710, L101.9900 #### [facility] [address] [place], [address] CO2 [Moles/Vol] 25.0 mmol/L Normal 21.0-32.0 [facility] Comment on above: Performed By: #### L 100.0100, L501.6710, L101.9900 #### [facility] [address] [place], [address] Creatinine [Mass/Vol] 0.86 mg/dL Normal 0.55-1.02 [facility] Comment on above: Result Comment: The validity of the calculated GFR GFRAA in patients over 70 years has not been determined. Clinical correlation is essential. Performed By: #### L 100.0100, L501.6710, L101.9900 #### [facility] [address] [place], [address] EST GFR - AA 94 mL/min Normal >60 [facility] Comment on above: Result Comment: Afri can Norwegian GFR Calc Performed By: #### L 100.0100, L501.6710, L101.9900 #### [facility] [address] [place], [address] GAP 6 Normal 5-15 [facility] Comment on above: Performed By: #### L 100.0100, L501.6710, L101.9900 #### [facility] [address] [place], [address] GFR/1.73 sq M.predicted among non-blacks MDRD (S/P/Bld) [Vol rate/Area] 78 mL/min/{1.73_m2} Normal >60 [facility] Comment on above: Result Comment: Non- GFR Calc Performed By: #### L 100.0100, L501.6710, L101.9900 #### [facility] [address] [place], [address] Globulin (S) [Mass/Vol] 4.1 g/dL Normal 2.2-4.2 [facility] Comment on above: Performed By: #### L 100.0100, L501.6710, L101.9900 #### [facility] [address] [place], [address] Glucose [Mass/Vol] 85 mg/dL Normal 74-106 [facility] Comment on above: Performed By: #### L 100.0100, L501.6710, L101.9900 #### [facility] [address] [place], [address] Potassium [Moles/Vol] 4.4 mmol/L Normal 3.5-5.1 [facility] Comment on above: Performed By: #### L 100.0100, L501.6710, L101.9900 #### [facility] [address] [place], [address] Sodium [Moles/Vol] 138 mmol/L Normal 136-145 [facility] Comment on above: Performed By: #### L 100.0100, L501.6710, L101.9900 #### [facility] [address] [place], [address] T PROT 7.8 g/dL Normal 6.4-8.2 [facility] Comment on above: Performed By: #### L 100.0100, L501.6710, L101.9900 #### [facility] [address] [place], [address] Urea nitrogen [Mass/Vol] 10 mg/dL Normal 7-18 [facility] Comment on above: Performed By: #### L 100.0100, L501.6710, L101.9900 #### [facility] [address] [place], [address] Eosinophil percentageOrdered By: [facility] Aruna García on 07-07-2024 Eosinophils/100 WBC (Bld) 8.7 % High 0-5 [facility] Erythrocyte distribution wid th ratioOrdered By: [facility] Aruna García on 07-07-2024 Erythrocyte distribution width (RBC) [Ratio] 14.9 % High 11.6-14.6 [facility] Erythrocyte distribution wid th standard deviationOrdered By: [facility] Aruna García on 07-07-2024 Erythrocyte distribution width (RBC) [Entitic vol] 44.6 fL High 35.1-43.9 [facility] Estimated glomerular filtrat ion rate (GFR) AmericanOrdered By: [facility] Aruna García on 07-07-2024 Estimated GFR (MDRD) Amer 94 mL/min >60 [facility] Comment on above: GFR Calc Glomerular filtration rate ( GFR) estimationOrdered By: [facility] Aruna García on 07-07-2024 Estimated GFR (MDRD) Non-Af Amer 78 mL/min >60 [facility] Comment on above: Non- GFR Calc Glucose measurementOrdered B y: [facility] Aruna García on 07-07-2024 Glucose [Mass/Vol] 85 mg/dL 74-106 [facility] HBV core Ab Ql (S)Ordered By : [facility] Aruna García on 07-07-2024 Hepatitis B Core Total Antibody Positive High Negative [facility] HBV surface Ag IA QlOrdered By: [facility] Aruna García on 07-07-2024 Hepatitis B Surface Antigen Negative Negative [facility] HIV 1+2 Ab+HIV1 p24 Ag IA Ql Ordered By: [facility] Aruna García on 07-07-2024 HIV (1&2) Antibody Non-Reactive Nonreactive [facility] Hematocrit Auto (Bld) [Volum e fraction]Ordered By: [facility] Aruna García on 07-07-2024 Hematocrit (Bld) [Volume fraction] 36.8 % Low 37-47 [facility] Hemoglobin A1con 07-07-2024 HbA1c (Bld) [Mass fraction] 5.7 % High 3.8-5.6 [facility] Comment on above: Result Comment: Norm al < 5.7 % Prediabetic 5.7 - 6.4 % Diabetic >or= 6.5 % Please note range changes. Performed By: #### L 100.0100, L501.6710, L101.9900 #### [facility] [address] [place], [address] Hemoglobin A1c percentageOrd ered By: [facility] Aruna García on 07-07-2024 HbA1c (Bld) [Mass fraction] 5.7 % High 3.8-5.6 [facility] Comment on above: Normal < 5.7 % Predi abetic 5.7 - 6.4 % Diabetic >or= 6.5 % Please note range changes. Hemoglobin measurementOrdere d By: [facility] Aruna García on 07-07-2024 Hemoglobin (Bld) [Mass/Vol] 11.5 g/dL Low 12.0-15.0 [facility] Hepatitis B surface antibody Ordered By: [facility] Aruna García on 07-07-2024 Hepatitis B Surface Antibody Reactive . [facility] Comment on above: Non Reactive: Not im mune to HBV infection. Equivocal: Unable to determine if anti-HBs is present at levels consistent with immunity. Reactive: Anti-HBs concentration detected at greater than 10 mIU/mL. Individual is considered to be immune to infection with HBV. Hepatitis C virus antibody a ssay by recombinant immunoblot assayOrdered By: [facility] Aruna García on 07-07-2024 Hepatitis C Antibody Reactive High Non Reactive [facility] High density lipoprotein (HD L) measurementOrdered By: [facility] Aruna García on 07-07-2024 Cholesterol in HDL [Mass/Vol] 79 mg/dL >40 [facility] Comment on above: The drugs N-Acetylcy steine and Metamizole may falsely depress this assay. Reference Range HDL <40 mg/dL Low HDL Cholesterol HDL >or= 60 mg/dL High HDL Cholesterol Immature granulocytes/100 WB C Auto (Bld)Ordered By: [facility] Aruna García on 07-07-2024 Immature granulocytes/100 WBC (Bld) 0.300 % 0.0-0.9 [facility] Comment on above: IG% - Immature Granu locytes (promyelocytes, myelocytes and metamyelocytes) > 1% indicates that a LEFT SHIFT is Present. Laboratory - Chemistry and C hemistry - challengeOrdered By: [facility] Aruna García on 07-07-2024 AST [Catalytic activity/Vol] 26 U/L 15-37 [facility] Lipid Profileon 07-07-2024 Cholesterol [Mass/Vol] 172 mg/dL Normal 200 [facility] Comment on above: Result Comment: <200 mg/dL Desirable 200-240 mg/dL Borderline >240 mg/dL High Risk Performed By: #### L 100.0100, L501.6710, L101.9900 #### [facility] [address] [place], [address] Cholesterol in HDL [Mass/Vol] 79 mg/dL Normal [facility] Comment on above: Result Comment: The drugs N-Acetylcysteine and Metamizole may falsely depress this assay. Reference Range HDL <40 mg/dL Low HDL Cholesterol HDL >or= 60 mg/dL High HDL Cholesterol Performed By: #### L 100.0100, L501.6710, L101.9900 #### [facility] [address] [place], [address] Cholesterol in LDL [Mass/Vol] 73 mg/dL Normal 0-130 [facility] Comment on above: Performed By: #### L 100.0100, L501.6710, L101.9900 #### [facility] [address] [place], [address] Cholesterol in VLDL [Mass/Vol] 20 mg/dL Normal 5-40 [facility] Comment on above: Performed By: #### L 100.0100, L501.6710, L101.9900 #### [facility] [address] [place], [address] Triglyceride [Mass/Vol] 99 mg/dL Normal [facility] Comment on above: Result Comment: The drugs N-Acetylcysteine and Metamizole may falsely depress this assay. Serum Triglycerides Reference Interval Normal <150 mg/dL Borderline high 150 - 199 mg/dL High 200 - 499 mg/dL Very High > or = 500 mg/dL Performed By: #### L 100.0100, L501.6710, L101.9900 #### [facility] [address] [place], [place], [address] Low density lipoprotein (LDL ) cholesterol measurementOrdered By: [facility] Aruna García on 07-07-2024 Cholesterol in LDL [Mass/Vol] 73 mg/dL 0-130 [facility] Lymphocytes Auto (Unsp spec) [#/Vol]Ordered By: [facility] Aruna García on 07-07-2024 Lymphocytes (Bld) [#/Vol] 1.88 10*3/uL 0.83-4.51 [facility] Lymphocytes/100 WBC Auto (Un sp spec)Ordered By: [facility] Aruna García on 07-07-2024 Lymphocytes/100 WBC (Bld) 26.9 % 19-41 [facility] M8200.2203on 07-07-2024 M8200.2203 Chlamydia Trachomati s PCR NEGATIVE for Chlamydia trachomatis N. gonorrhoeae PCR Negative for N. gonorrhoeae Normal [facility] Comment on above: Performed By: #### L 100.0100, L501.6710, L101.9900 #### [facility] [address] [place], [place], [id number] MCV (mean corpuscular volume ) determinationOrdered By: [facility] Aruna García on 07-07-2024 MCV (RBC) [Entitic vol] 81.6 fL 81-99 [facility] Mean corpuscular hemoglobin (MCH) determinationOrdered By: [facility] Aruna García on 07-07-2024 MCH (RBC) [Entitic mass] 25.5 pg Low 27.0-32.0 [facility] Mean corpuscular hemoglobin concentration (MCHC) determinationOrdered By: [facility] Aruna García on 07-07-2024 MCHC (RBC) [Mass/Vol] 31.3 g/dL Low 32-36 [facility] Mean platelet volume determi nationOrdered By: [facility] Aruna García on 07-07-2024 Platelet mean volume (Bld) [Entitic vol] 9.3 fL 6.2-12.0 [facility] Monocyte percentageOrdered B y: [facility] Aruna García on 07-07-2024 Monocytes/100 WBC (Bld) 13.1 % High 0-10 [facility] Neutrophil percentageOrdered By: [facility] Aruna García on 07-07-2024 Neutrophils/100 WBC (Bld) 49.9 % 47-70 [facility] Nucleated red blood cell per centageOrdered By: [facility] Aruna García on 07-07-2024 Nucleated RBC/100 WBC (Bld) [Ratio] 0 % 0-5 [facility] Platelet countOrdered By: [facility] rAuna García on 07-07-2024 Platelets (Bld) [#/Vol] 371 10*3/uL 150-450 [facility] Potassium measurementOrdered By: [facility] Aruna García on 07-07-2024 Potassium [Moles/Vol] 4.4 mmol/L 3.5-5.1 [facility] RBC Auto (Bld) [#/Vol]Ordere d By: [facility] Aruna García on 07-07-2024 RBC (Bld) [#/Vol] 4.51 10*6/uL 4.2-5.4 [facility] Serum anion gap measurementO rdered By: [facility] Aruna García on 07-07-2024 Anion gap [Moles/Vol] 6 mmol/L 5-15 [facility] Serum globulin measurementOr dered By: [facility] Aruna García on 07-07-2024 Globulin (S) [Mass/Vol] 4.1 g/dL 2.2-4.2 [facility] Serum or plasma alanine browning otransferase (ALT) measurementOrdered By: [facility] Aruna García on 07-07-2024 ALT [Catalytic activity/Vol] 25 U/L 13-56 [facility] Serum or plasma albumin vanessa urement (mass/volume)Ordered By: [facility] Aruna García on 07-07-2024 Albumin [Mass/Vol] 3.7 g/dL 3.2-5.0 [facility] Serum or plasma alkaline calli sphatase measurementOrdered By: [facility] Aruna García on 07-07-2024 ALP [Catalytic activity/Vol] 65 U/L 45-117 [facility] Serum or plasma calcium vanessa urement (mass/volume)Ordered By: [facility] Aruna García on 07-07-2024 Calcium [Mass/Vol] 8.9 mg/dL 8.5-10.1 [facility] Serum or plasma cholesterol measurement (mass/volume)Ordered By: [facility] Aruna García on 07-07-2024 Cholesterol [Mass/Vol] 172 mg/dL <200 [facility] Comment on above: <200 mg/dL Desirable 200-240 mg/dL Borderline >240 mg/dL High Risk Serum or plasma creatinine m easurement (mass/volume)Ordered By: [facility] Aruna García on 07-07-2024 Creatinine [Mass/Vol] 0.86 mg/dL 0.55-1.02 [facility] Comment on above: The validity of the calculated GFR & GFRAA in patients over 70 years has not been determined. Clinical correlation is essential. Serum or plasma urea nitroge n measurement (mass/volume)Ordered By: [facility] Aruna García on 07-07-2024 Urea nitrogen [Mass/Vol] 10 mg/dL 7-18 [facility] Sodium levelOrdered By: [facility] Aruna García on 07-07-2024 Sodium [Moles/Vol] 138 mmol/L 136-145 [facility] TSH QnOrdered By: [facility] Ethan García on 07-07-2024 Thyroid Stimulating Hormone (TSH) 1.370 uIU/mL 0.358-3.740 [facility] Thyroid Stim Hormone (TSH)on 07-07-2024 TSH 1.370 uIU/mL Normal 0.358-3.740 [facility] Comment on above: Performed By: #### L 100.0100, L501.6710, L101.9900 #### [facility] Laboratory [employer] [place] [address], [address] Total proteinOrdered By: [facility] Aruna García on 07-07-2024 Protein [Mass/Vol] 7.8 g/dL 6.4-8.2 [facility] Treponema sp Ab Ql (S)Ordere d By: [facility] Aruna García on 07-07-2024 Syphilis Total Antibody Non-Reactive [facility] Triglycerides measurementOrd ered By: [facility] Aruna García on 07-07-2024 Triglyceride [Mass/Vol] 99 mg/dL <199 [facility] Comment on above: The drugs N-Acetylcy steine and Metamizole may falsely depress this assay.Serum Triglycerides Reference Interval Normal <150 mg/dL Borderline high 150 - 199 mg/dL High 200 - 499 mg/dL Very High > or = 500 mg/dL Very low density lipoprotein (VLDL) cholesterol measurementOrdered By: [facility] Aruna Ricky on 07-07-2024 VLDL Cholesterol 20 mg/dL 5-40 [facility] White blood cell (WBC) count [facility] WBC (Bld) [#/Vol] 7.0 10*3/uL 4.4-11.0 [facility] Progress Noteon 06-07-2024 Progress Note Chief [...] stated that they are currently in the [facility]. If the patient is a minor, permission [...] Strain: Not on File (05/14/2023) Received from [employer] Strain Financial Resource Strain: 0 Food Insecurity: Not on File (02/18/2024) Received from [employer] Food Insecurity Food: 0 Transportation Needs: Not on File (05/14/2023) Received from [employer] Transportation Needs Transportation: 0 Physical Activity: Not on File (05/14/2023) Received from [employer] Physical Activity Physical Activity: 0 Stress: Not on File (05/14/2023) Received from [employer] Stress Stress: 0 Social Connections: Not on File (02/17/2024) Received from [employer] Social Connections Connectedness: 0 Intimate Partner Violence: Not on file Housing Stability: Not on File (05/14/2023) Received from [employer] Housing Stability Housin No family history on [...] 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 5. Keep medicine out [...] in this encounter. No follow-ups on file. [facility] Progress Note This encounter was created in error - please disregard. [facility] 36on 05-12-2024 36 Name of caller: Genesis Frederick Contact phone number: [phone] Relationship to Patient: patient Provider: Dr. Miya Oconnell Practice: [facility] Chief Complaint/Reason for Call: Pt request a [...] business hours to return their call: Yes [facility] Progress Noteon 05-11-2024 Progress Note Chief Complaint [...] that they are currently in the state [facility]. If the patient is a minor, [...] Strain: Not on File (05/14/2023) Received from [employer] Strain Financial Resource Strain: 0 Food Insecurity: Not on File (02/18/2024) Received from [employer] Food Insecurity Food: 0 Transportation Needs: Not on File (05/14/2023) Received from [employer] Transportation Needs Transportation: 0 Physical Activity: Not on File (05/14/2023) Received from [employer] Physical Activity Physical Activity: 0 Stress: Not on File (05/14/2023) Received from [employer] Stress Stress: 0 Social Connections: Not on File (02/17/2024) Received from [employer] Social Connections Connectedness: 0 Intimate Partner Violence: Not on file Housing Stability: Not on File (05/14/2023) Received from [employer] Housing Stability Housin No family history on [...] 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 5. Keep medicine out [...] Medications buprenorphine-naloxone (Suboxone) (more content not included)... Normal [facility] Maite 05-10-2024 [facility] Office Visit (UCWSTR ) GENESIS BRADFORD ([id number]) 1985 F Date Time Provider Department 05/10/24 2:45 PM ARUNA SMILEY During your visit today, we recorded the following information about you: Temperature Pulse Respiration Blood pressure 97.9 degrees 79/minute 18/minute 110/72 Weight 58.6 kg Maura Harry APRN.CNP 05/10/2024 3:33 PM Signed CC: Patient presents [...] Grandmother Lipids Maternal Grandfather Heart Paternal Grandmother CA Lung Cancer Paternal Grandmother Colon Cancer Paternal [...] Unremarkable. IMPRESSION IMPRESSION: No acute radiographic abnormality. Vacuum Pan Tender: LNINETTE Transcribe Date/Time: May 10 2024 3:24P Dictated by : SALMA SINCLAIR MD Medrol dose pack for the cough . Potential red flag symptoms discussed with the patient. Reviewed appropriate action plan to take if red flag symptoms occur. Patient agreeable to treatment plan. Maura Harry APRN.ANNUAL CAMPAIGN MANAGER Allergies As of Date: 05/10/2024 (No Known Allergies) Date Reviewed: 05/10/2024 Reviewed by: Sa Lexy (more content not included)... Normal [facility] XR CHEST 2V FRONTAL/LATon XR CHEST 2V [...] tissues: Unremarkable. IMPRESSION: No acute radiographic abnormality. Vacuum Pan Tender: LINNETTE Transcribe Date/Time: May 10 2024 3:24P Dictated by : SALMA SINCLAIR MD This examination was interpreted and the report reviewed and electronically signed by: SALMA SINCLAIR MD on May 10 2024 3:25PM EST [id number] Normal [facility] XR Chest PA and Lateralon IMPRESSION: No acute radiographic abnormality. Vacuum Pan Tender: LINNETTE Transcribe Date/Time: May 10 2024 3:24P [...] soft tissues: Unremarkable. DIVISION OF RADIOLOGY Provider, [facility] - 05/10/2024 * * *Final Report* * [...] Unremarkable. IMPRESSION IMPRESSION: No acute radiographic abnormality. Vacuum Pan Tender: PSCB Transcribe Date/Time: May 10 2024 3:24P Dictated by : SALMA SINCLAIR MD This examination was interpreted and the report reviewed and electronically signed by: SALMA SINCLAIR MD on May 10 2024 3:25PM EST [facility] Radiology Study observation (narrative) [facility] XR Chest PA and LateralOrder ed By: Ccf Provider on 05-10-2024 [facility] Giovanny 05-09-2024 CNPN Telephone (INTMWS) CESILIAGENESIS Britt ([id number]) 1985 F Date Time Provider Department 05/09/24 [...] the doxycycline? Please advise pt. Aruna Smiley APRN.ANNUAL CAMPAIGN MANAGER 05/09/2024 12:08 PM Signed Reviewed chart and exam Reached out, No answer. VM message left Patient can take the Doxy as prescribed Follow up with PCP Allergies As of Date: 05/09/2024 (No Known Allergies) Date Reviewed: 05/07/2024 Reviewed by: Julia Pugh LPN - Fully Assessed Reason for Visit: Patient Question [2437] Prescriptions as of 05/09/2024 - doxycycline (VIBRA-TABS) [...] Encounter Status:Closed by ARUNA SMILEY on 05/09/24 [facility] CNOVon 05-07-2024 CNOV Office Visit (UCWSTR ) GENESIS BRADFORD ([id number]) 1985 F Date Time Provider Department 05/07/24 2:00 PM MAURA HARRY [facility] During your visit today, we recorded the following information about you: Temperature Pulse Respiration Blood pressure 98.4 degrees 96/minute 18/minute 130/82 Weight 58.4 kg Maura Harry APRN.[facility] 05/07/2024 2:26 PM Signed CC: Patient presents [...] Grandmother Lipids Maternal Grandfather Heart Paternal Grandmother CA Lung Cancer Paternal Grandmother Colon Cancer Paternal [...] Patient agreeable to treatment plan. Maura Harry APRN.ANNUAL CAMPAIGN MANAGER Referring Provider: SELF [200] Allergies As of [...] once daily. (more content not included)... Normal [facility] MEDICATION ASSISTED TREATMEN T PANELOrdered By: Maryann Monk on 04-27-2024 Amphetamines Ql (U) Negative Negative [facility] Barbiturates screen method Nom (U) Negative Negative [facility] Benzodiazepines screen method Nom (U) Negative Negative [facility] BUPRENORPHINE SCREEN Positive Negative [facility] Cocaine Ql (U) Negative Negative [facility] Ethanol [Mass/Vol] Negative Negative [facility] FENTANYL Negative Negative [facility] Methadone Ql (U) Negative Negative [facility] Opiates Screen Ql (U) Negative Negative [facility] OXYCODONE/OXYMORPHONE Negative Negative [facility] PCP Negative Negative [facility] THC Negative Negative [facility] The expected value f or the [...] treatment only. Analysis performed using non-forensic procedures. [facility] MEDICATION ASSISTED TREATMEN T PANELon 04-27-2024 Amphetamines Ql (U) Negative Normal Negative [facility] Comment on above: Performed By: #### L [id number] ####District Court Judge: AMANDA PAK ([id number])[facility] ([facility])[address] [place] [address] BARBITURATES Negative Normal Negative [facility] Comment on above: Performed By: #### L [id number] ####District Court Judge: AMANDA PAK ([id number])[facility])[address] [place] [address] Benzodiazepines Ql (U) Negative Normal Negative [facility] Comment on above: Performed By: #### L [id number] ####District Court Judge: AMANDA PAK ([id number])[facility])[address] [place] [address] BUPRENORPHINE SCREEN Positive Normal Negative [facility] Comment on above: Performed By: #### L [id number] ####District Court Judge: AMANDA PAK ([id number])[facility])[address] [place] [address] Cocaine Ql (U) Negative Normal Negative [facility] Comment on above: Performed By: #### L [id number] ####District Court Judge: AMANDA PAK ([id number])[facility])[address] [place] [address] ETHANOL-ETOHO Negative Normal Negative [facility] Comment on above: Result Comment: ORDE [...] using non-forensic procedures. Performed By: #### L [id number] ####District Court Judge: AMANDA PAK ([id number])[facility] ([facility])[address] [place] [address] FENTANYL Negative Normal Negative [facility] Comment on above: Performed By: #### L [id number] ####District Court Judge: AMANDA PAK ([id number])[address] Methadone Ql (U) Negative Normal Negative [facility] Comment on above: Performed By: #### L [id number] ####District Court Judge: AMANDA PAK ([id number])[facility])[address] [place] [address] Opiates Ql (U) Negative Normal Negative [facility] Comment on above: Performed By: #### L [id number] ####District Court Judge: AMANDA PAK ([id number])[facility])[address] [place] [address] OXYCODONE/OXYMORPHONE Negative Normal Negative [facility] Comment on above: Performed By: #### L [id number] ####District Court Judge: AMANDA PAK ([id number])[facility])[address] [place] [address] PCP Negative Normal Negative [facility] Comment on above: Performed By: #### L [id number] ####District Court Judge: AMANDA PAK ([id number])[facility])[address] [place] [address] THC-MTTHC Negative Normal Negative [facility] Comment on above: Performed By: #### L [id number] ####District Court Judge: AMANDA PAK ([id number])[facility] ([facility])[address] [place] [address] Progress Noteon 04-13-2024 Progress Note Chief Complaint [...] stated that they are currently in the [facility]. If the patient is a minor, permission [...] Strain: Not on File (05/14/2023) Received from [employer] Strain Financial Resource Strain: 0 Food Insecurity: Not on File (02/18/2024) Received from [employer] Food Insecurity Food: 0 Transportation Needs: Not on File (05/14/2023) Received from [employer] Transportation Needs Transportation: 0 Physical Activity: Not on File (05/14/2023) Received from [employer] Physical Activity Physical Activity: 0 Stress: Not on File (05/14/2023) Received from [employer] Stress Stress: 0 Social Connections: Not on File (02/17/2024) Received from [employer] Social [employer]ctions Connectedness: 0 Intimate Partner Violence: Not on file Housing Stability: Not on File (05/14/2023) Received from [employer] Housing Stability Housin No family history on [...] 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 5. Keep medicine out [...] New Medications Ordered (more content not included)... [facility] Giovanny 04-06-2024 ROMMEL Telephone (UCWSTR) GENESIS BRADFORD Kathia ([id number]) 1985 F Date Time Provider Department 04/06/24 MARCO ANTONIO ARDON [facility] During your visit today, we recorded the following information about you: Marco Antonio Ardon APRN.ANATOLY 04/06/2024 7:24 AM Signed Please inform patient that positive for vaginosis bacterial vaginosis. Medication sent to [facility].. Other vaginal swabs and blood work are [...] Status:Closed by ROBERTA FERRER on 04/06/24 Normal [facility] BACTERIAL VAGINOSIS NAATon 1 06-05-2023 Lactobacillus crispatus+gasseri+cornelius enii + Gardnerella vaginalis + Atopobium vaginae rRNA DARIO+probe Ql (Vag fld) Positive Abnormal Negative for bacterial vaginosis [facility] Comment on above: Order Comment: Speci men Type: SWABOrdering Facility: [facility] Address: [address] [place] [address] Performed By: #### Jo-Ann ROTHMAN, [id number] ####[facility] LABCLIA [id number] [place] [address] [place] C. trachomatis+N. gonorrhoea e DNA DARIO+probe Ql (Unsp spec)on 04-05-2024 C. trachomatis rRNA DARIO+probe Ql (Unsp spec) Negative Normal Negative for Chlamydia trachomatis by amplificaton [facility] Comment on above: Order Comment: Speci men Type: SWABOrdering Facility: [facility] Address: [address] [place] [address] Performed By: #### B VAMP, 62624-8 ####[facility] LABCLIA [id number] [place] [address] [place] N. gonorrhoeae rRNA DARIO+probe Ql (Unsp spec) Negative Normal Negative for Neisseria gonorrhoeae by amplification [facility] Comment on above: Order Comment: Speci men Type: SWABOrdering Facility: [facility] Address: [address] [place] [address] Performed By: #### B VAMP, 80142-5 ####[facility] LABCLIA [id number] [place] [address] [place] KEAGAN/TRICHOMONAS NAATon 1 06-05-2023 C. glabrata RNA DARIO+probe Ql (Vag fld) Negative Normal Negative for Keagan glabrata [facility] Comment on above: Order Comment: Speci men Type: SWABOrdering Facility: [facility] Address: [address] [place] [address] Performed By: #### C VTV ####[facility] LABCLIA [id number] [place] [address] [place] Keagan sp DNA DARIO+probe Ql (Vag fld) Positive Abnormal Negative for Keagan species [facility] Comment on above: Order Comment: Speci men Type: SWABOrdering Facility: [facility] Address: [address] [place] [address] Performed By: #### C VTV ####[facility] LABCLIA [id number] [place] [address] [place] T. vaginalis DNA DARIO+probe Ql (Unsp spec) Negative Normal Negative for Trichomonas vaginalis by amplification [facility] Comment on above: Order Comment: Speci men Type: SWABOrdering Facility: [facility] Address: [address] [place] [address] Performed By: #### C VTV ####[facility] LABCLPATT [id number] [address] [id number] [address] [place] CNOVon 04-05-2024 CNOV Office Visit (UCWSTR ) GENESIS BRADFORD ([id number]) 1985 F Date Time Provider Department 04/05/24 7:00 PM GEENA RANGEL [facility] During your visit today, we recorded the following information about you: Temperature Pulse Respiration Blood pressure 97.6 degrees 110/minute 18/minute 139/49 Weight 58 kg Geena Rangel PA 04/05/2024 7:27 PM Signed This note was created using [email or web address]. Subjective Genesis Bradford is a 38 year [...] Grandmother Lipids Maternal Grandfather Heart Paternal Grandmother CA Lung Cancer Paternal Grandmother Colon Cancer Paternal [...] nursing note reviewed. Exam conducted with a early childhood education worker present. Constitutional: General: She is not in [...] Z11.3 (pr (more content not included)... Normal [facility] Progress Noteon 03-16-2024 Progress Note Chief Complaint [...] that they are currently in the state [facility]. If the patient is a minor, [...] Strain: Not on File (05/14/2023) Received from [employer] Strain Financial Resource Strain: 0 Food Insecurity: Not on File (02/18/2024) Received from [employer] Food Insecurity Food: 0 Transportation Needs: Not on File (05/14/2023) Received from [employer] Transportation Needs Transportation: 0 Physical Activity: Not on File (05/14/2023) Received from [employer] Physical Activity Physical Activity: 0 Stress: Not on File (05/14/2023) Received from [employer] Stress Stress: 0 Social Connections: Not on File (02/17/2024) Received from [employer] Connectedness: 0 Intimate Partner Violence: Not on file Housing Stability: Not on File (05/14/2023) Received from [employer] Housing Stability Housin No family history on [...] 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 5. Keep medicine out [...] This Visit Medications (more content not included)... [facility] Progress Noteon 02-17-2024 Progress Note Chief Complaint [...] stated that they are currently in the [facility]. If the patient is a minor, permission [...] Strain: Not on File (05/14/2023) Received from [employer] Strain Financial Resource Strain: 0 Food Insecurity: Not on file (02/01/2024) Transportation Needs: Not on File (05/14/2023) Received from [employer] Transportation Needs Transportation: 0 Physical Activity: Not on File (05/14/2023) Received from [employer] Physical Activity Physical Activity: 0 Stress: Not on File (05/14/2023) Received from [employer] Stress Stress: 0 Social Connections: Not on File (05/14/2023) Received from [employer] Social Connections and Isolation: 0 Intimate Partner Violence: Not on file Housing Stability: Not on File (05/14/2023) Received from [employer] Housing Stability Housin No family history on [...] 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 5. Keep medicine out [...] under the tongue (more content not included)... [facility] Progress Noteon 02-02-2024 Progress Note Chief Complaint [...] that they are currently in the state [facility]. If the patient is a minor, permission has been obtained by the parent or guardian for the patient to receive medical care at this visit. HPI: Genesis Bradford, a 38 y.o. female, who returns for a follow-up MAT appointment. 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 Seeing both POs Cravings : denied Sleep: [...] Strain: Not on File (05/14/2023) Received from [employer] Strain Financial Resource Strain: 0 Food Insecurity: Not on file (02/01/2024) Transportation Needs: Not on File (05/14/2023) Received from [employer] Transportation Needs Transportation: 0 Physical Activity: Not on File (05/14/2023) Received from [employer] Physical Activity Physical Activity: 0 Stress: Not on File (05/14/2023) Received from [employer] Stress Stress: 0 Social Connections: Not on File (05/14/2023) Received from [employer] Social [employer]ctions Social Connections and Isolation: 0 Intimate Partner Violence: Not on file Housing Stability: Not on File (05/14/2023) Received from [employer] Housing Stability Housin No family history on [...] 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 5. Keep medicine out [...] per subli (more content not included)... Normal [facility] MEDICATION ASSISTED TREATMEN T PANELOrdered By: Gwen Vigil on 02-01-2024 Amphetamines Ql (U) Negative Negative [facility] Barbiturates screen method Nom (U) Negative Negative [facility] Benzodiazepines screen method Nom (U) Negative Negative [facility] BUPRENORPHINE SCREEN Positive Negative [facility] Cocaine Ql (U) Negative Negative [facility] Ethanol [Mass/Vol] Negative Negative [facility] FENTANYL Negative Negative [facility] Methadone Ql (U) Negative Negative [facility] Opiates Screen Ql (U) Negative Negative [facility] OXYCODONE/OXYMORPHONE Negative Negative [facility] PCP Negative Negative [facility] THC Negative Negative [facility] The expected value f or the [...] treatment only. Analysis performed using non-forensic procedures. [facility] MEDICATION ASSISTED TREATMEN T PANELon 02-01-2024 Amphetamines Ql (U) Negative Normal Negative [facility] Comment on above: Performed By: #### L [id number] ####District Court Judge: AMANDA PAK ([id number])[facility] ([facility])[address] [place] [address] BARBITURATES Negative Normal Negative [facility] Comment on above: Performed By: #### L [id number] ####District Court Judge: AMANDA PAK ([id number])[facility] ([facility])[address] [place] [address] Benzodiazepines Ql (U) Negative Normal Negative [facility] Comment on above: Performed By: #### L [id number] ####District Court Judge: AMANDA PAK ([id number])[facility] ([facility])[address] [place] [address] BUPRENORPHINE SCREEN Positive Normal Negative [facility] Comment on above: Performed By: #### L [id number] ####District Court Judge: AMANDA PAK ([id number])[facility] ([facility])[address] [place] [address] Cocaine Ql (U) Negative Normal Negative [facility] Comment on above: Performed By: #### L [id number] ####District Court Judge: AMANDA PAK ([id number])[facility] ([facility])[address] [place] [address] ETHANOL-ETOHO Negative Normal Negative [facility] Comment on above: Result Comment: JOHNY [...] using non-forensic procedures. Performed By: #### L [id number] ####District Court Judge: AMANDA PAK ([id number])[facility] ([facility])[address] [place] [address] FENTANYL Negative Normal Negative [facility] Comment on above: Performed By: #### L [id number] ####District Court Judge: AMANDA PAK ([id number])[facility] ([facility])[address] [place] [address] Methadone Ql (U) Negative Normal Negative [facility] Comment on above: Performed By: #### L [id number] ####District Court Judge: AMANDA PAK ([id number])[facility] ([facility])[address] [place] [address] Opiates Ql (U) Negative Normal Negative [facility] Comment on above: Performed By: #### L [id number] ####District Court Judge: AMANDA PAK ([id number])[facility] ([facility])[address] [place] [address] OXYCODONE/OXYMORPHONE Negative Normal Negative [facility] Comment on above: Performed By: #### L [id number] ####District Court Judge: AMANDA PAK ([id number])[facility] ([facility])[address] [place] [address] PCP Negative Normal Negative [facility] Comment on above: Performed By: #### L [id number] ####District Court Judge: AMANDA PAK ([id number])[facility] ([facility])[address] [place] [address] THC-MTTHC Negative Normal Negative [facility] Comment on above: Performed By: #### L [id number] ####District Court Judge: AMANDA PAK ([id number])[facility] ([facility])[address] [place] [address] 36on 01-19-2024 36 Recent results, rout ed to you Normal [facility] Progress Noteon 01-19-2024 Progress Note Chief Complaint [...] stated that they are currently in the [facility]. If the patient is a minor, permission has been obtained by the parent or guardian for the patient to receive medical care at this visit. HPI: Genesis Bradford, a 38 y.o. female, who returns for a follow-up MAT appointment. UDS 12/07 ok--UDS 01/17 Buprenorphine negative OARRS ok In good spirits Staying clean Going to work Started another job at [employer] Cravings : denied Sleep: denied Anxiety: denied [...] Strain: Not on File (05/14/2023) Received from [employer] Strain Financial Resource Strain: 0 Food Insecurity: Not on File (05/14/2023) Received from [employer] Food Insecurity Food: 0 Transportation Needs: Not on File (05/14/2023) Received from [employer] Transportation Needs Transportation: 0 Physical Activity: Not on File (05/14/2023) Received from [employer] Physical Activity Physical Activity: 0 Stress: Not on File (05/14/2023) Received from [employer] Stress Stress: 0 Social Connections: Not on File (05/14/2023) Received from [employer] Social Connections Social Connections and Isolation: 0 Intimate Partner Violence: Not on file Housing Stability: Not on File (05/14/2023) Received from [employer] Housing Stability Housin No family history on [...] 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 5. Keep medicine out [...] This Visit Medications (more content not included)... [facility] 36on 01-18-2024 36 Name of caller: Shey gusman Contact phone number: [phone] Relationship to Patient: patient Provider: Dr Oconnell [...] business hours to return their call: Yes [facility] Progress Noteon 01-05-2024 Progress Note Chief [...] stated that they are currently in the [facility]. If the patient is a minor, permission has been obtained by the parent or guardian for the patient to receive medical care at this visit. HPI: Genesis Bradford, a 38 y.o. female, who returns for a follow-up MAT appointment. UDS 12/07 ok--ordered OARRS ok Working at [employer]--starts fulltime Sees PO every 2 weeks All [...] Strain: Not on File (05/14/2023) Received from [employer] Strain Financial Resource Strain: 0 Food Insecurity: Not on File (05/14/2023) Received from [employer] Food Insecurity Food: 0 Transportation Needs: Not on File (05/14/2023) Received from [employer] Transportation Needs Transportation: 0 Physical Activity: Not on File (05/14/2023) Received from [employer] Physical Activity Physical Activity: 0 Stress: Not on File (05/14/2023) Received from [employer] Stress Stress: 0 Social Connections: Not on File (05/14/2023) Received from [employer] Social Connections Social Connections and Isolation: 0 Intimate Partner Violence: Not on file Housing Stability: Not on File (05/14/2023) Received from [employer] Housing Stability Housin No family history on [...] 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 5. Keep medicine out [...] New Medications (more content not included)... Normal [facility] UA DIP, URINE (POC)on 2023 BILIRUBIN UA (POCT) Negative Negative [facility] CLARITY UA (POCT) Clear [facility] COLOR UA (POCT) Yellow [facility] GLUCOSE UA (POCT) Negative Negative mg/dL [facility] Hemoglobin Ql (U) Negative Negative [facility] Interpretation and review of laboratory results Abnormal [facility] KETONE UA (POCT) Negative Negative mg/dL [facility] LEUKOCYTES UA (POCT) Moderate Abnormal Negative [facility] NITRITE UA (POCT) Negative Negative [facility] PH UA (POCT) 5.5 4.5 - 8.0 [facility] Protein Ql (U) Negative Negative mg/dL [facility] SPECIFIC GRAVITY UA (POCT) >=1.030 1.005 - 1.030 [facility] UROBILINOGEN UA (POCT) 0.2 Normal E.U./d L [facility] Location:[facility], [address], [place], [address] [facility] POINT OF CARE [facility] UA DIP,URINE HCG (POC)on Beta HCG ( test) Ql (U) Negative Negative [facility] Comment on above: Location:[facility], [facility] [address], [place], [address] Vegetable Buncher (POCT) Internal QC [facility] Location:[facility], [address], [place], [address] [facility] POINT OF CARE [facility] Progress Noteon 12-22-2023 Progress Note Chief Complaint [...] stated that they are currently in the [facility]. If the patient is a minor, permission [...] Strain: Not on File (05/14/2023) Received from [employer] Strain Financial Resource Strain: 0 Food Insecurity: Not on File (05/14/2023) Received from [employer] Food Insecurity Food: 0 Transportation Needs: Not on File (05/14/2023) Received from [employer] Transportation Needs Transportation: 0 Physical Activity: Not on File (05/14/2023) Received from [employer] Physical Activity Physical Activity: 0 Stress: Not on File (05/14/2023) Received from [employer] Stress Stress: 0 Social Connections: Not on File (05/14/2023) Received from [employer] Social Connections Social Connections and Isolation: 0 Intimate Partner Violence: Not on file Housing Stability: Not on File (05/14/2023) Received from [employer] Housing Stability Housin No family history on [...] 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 5. Keep medicine out [...] 8-2 MG (more content not included)... Normal [facility] MEDICATION ASSISTED TREATMEN T PANELon 12-08-2023 Amphetamines Ql (U) Negative Normal Negative [facility] Comment on above: Performed By: #### L [id number] ####District Court Judge: AMANDA PAK ([id number])[facility])[address] [place] [address] BARBITURATES Negative Normal Negative [facility] Comment on above: Performed By: #### L [id number] ####District Court Judge: AMANDA PAK ([id number])[facility])[address] [place] [address] Benzodiazepines Ql (U) Negative Normal Negative [facility] Comment on above: Performed By: #### L [id number] ####District Court Judge: AMANDA PAK ([id number])[facility])[address] [place] [address] BUPRENORPHINE SCREEN Positive Normal Negative [facility] Comment on above: Performed By: #### L [id number] ####District Court Judge: AMANDA PAK ([id number])[facility])[address] [place] [address] Cocaine Ql (U) Negative Normal Negative [facility] Comment on above: Performed By: #### L [id number] ####District Court Judge: AMANDA PAK ([id number])[address] ETHANOL-ETOHO Negative Normal Negative [facility] Comment on above: Result Comment: JOHNY R COMMENTS: The expected value for the [...] using non-forensic procedures. Performed By: #### L [id number] ####District Court Judge: AMANDA PAK ([id number])[facility] ([facility])[address] [place] [address] FENTANYL Negative Normal Negative [facility] Comment on above: Performed By: #### L [id number] ####District Court Judge: AMANDA PAK ([id number])[facility] ([facility])[address] [place] [address] Methadone Ql (U) Negative Normal Negative [facility] Comment on above: Performed By: #### L [id number] ####District Court Judge: AMANDA PAK ([id number])[facility] ([facility])[address] [place] [address] Opiates Ql (U) Negative Normal Negative [facility] Comment on above: Performed By: #### L [id number] ####District Court Judge: AMANDA PAK ([id number])[facility] ([facility])[address] [place] [address] OXYCODONE/OXYMORPHONE Negative Normal Negative [facility] Comment on above: Performed By: #### L [id number] ####District Court Judge: AMANDA PAK ([id number])[facility])[address] [place] [address] PCP Negative Normal Negative [facility] Comment on above: Performed By: #### L [id number] ####District Court Judge: AMANDA PAK ([id number])[facility])[address] [place] [address] THC-MTTHC Negative Normal Negative [facility] Comment on above: Performed By: #### L [id number] ####District Court Judge: AMANDA PAK ([id number])[facility])[address] [place] [address] Office Visiton 12-08-2023 Follow-up visit [id number] Oksana Bradford 1985 F Date Provider Department [place] 12/08/2023 [id number]-TALGIMIYA OCONNELL [facility] ACD- None No family history on file Level of Service:62473 LA OFFICE/OUTPATIENT ESTABLISHED MOD MDM 30 MIN Reason for Visit and Comments: Drug / Alcohol Assessment [720336] [facility] Progress Noteon 12-08-2023 Progress Note Chief [...] Strain: Not on File (05/14/2023) Received from [employer] Strain Financial Resource Strain: 0 Food Insecurity: Not on File (05/14/2023) Received from [employer] Food Insecurity Food: 0 Transportation Needs: Not on File (05/14/2023) Received from [employer] Transportation Needs Transportation: 0 Physical Activity: Not on File (05/14/2023) Received from [employer] Physical Activity Physical Activity: 0 Stress: Not on File (05/14/2023) Received from [employer] Stress Stress: 0 Social Connections: Not on File (05/14/2023) Received from [employer] Social Connections Social Connections and Isolation: 0 Intimate Partner Violence: Not on file Housing Stability: Not on File (05/14/2023) Received from [employer] Housing Stability Housin No family history on [...] 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 5. Keep medicine out [...] up in about 2 weeks (around 12/22/2023). Normal [facility] Progress Noteon 12-01-2023 Progress Note Chief Complaint [...] stated that they are currently in the [facility]. If the patient is a minor, permission [...] Strain: Not on File (05/14/2023) Received from [employer] Strain Financial Resource Strain: 0 Food Insecurity: Not on File (05/14/2023) Received from [employer] Food Insecurity Food: 0 Transportation Needs: Not on File (05/14/2023) Received from [employer] Transportation Needs Transportation: 0 Physical Activity: Not on File (05/14/2023) Received from [employer] Physical Activity Physical Activity: 0 Stress: Not on File (05/14/2023) Received from [employer] Stress Stress: 0 Social Connections: Not on File (05/14/2023) Received from [employer] Social Connections and Isolation: 0 Intimate Partner Violence: Not on file Housing Stability: Not on File (05/14/2023) Received from [employer] Housing Stability Housin No family history on [...] 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 5. Keep medicine out [...] in this encounter. No follow-ups on file. Normal [facility] MEDICATION ASSISTED TREATMEN T PANELon 11-18-2023 Amphetamines Ql (U) Negative Normal Negative [facility] Comment on above: Performed By: #### L [id number] ####District Court Judge: AMANDA PAK ([id number])[facility] ([facility])[address] [place] [address] BARBITURATES Negative Normal Negative [facility] Comment on above: Performed By: #### L [id number] ####District Court Judge: AMANDA PAK ([id number])[facility] ([facility])[address] [place] [address] Benzodiazepines Ql (U) Negative Normal Negative [facility] Comment on above: Performed By: #### L [id number] ####District Court Judge: AMANDA PAK ([id number])[facility] ([facility])[address] [place] [address] BUPRENORPHINE SCREEN Positive Normal Negative [facility] Comment on above: Performed By: #### L [id number] ####District Court Judge: AMANDA PAK ([id number])[facility] ([facility])[address] [place] [address] Cocaine Ql (U) Negative Normal Negative [facility] Comment on above: Performed By: #### L [id number] ####District Court Judge: AMANDA PAK ([id number])[facility] ([facility])[address] [place] [address] ETHANOL-ETOHO Negative Normal Negative [facility] Comment on above: Result Comment: JOHNY [...] using non-forensic procedures. Performed By: #### L [id number] ####District Court Judge: AMANDA PAK ([id number])[facility] [place] [address] FENTANYL Negative Normal Negative [facility] Comment on above: Performed By: #### L [id number] ####District Court Judge: AMANDA PAK ([id number])[facility] ([facility])[address] [place] [address] Methadone Ql (U) Negative Normal Negative [facility] Comment on above: Performed By: #### L [id number] ####District Court Judge: AMANDA PAK ([id number])[facility] ([facility])[address] [place] [address] Opiates Ql (U) Negative Normal Negative [facility] Comment on above: Performed By: #### L [id number] ####District Court Judge: AMANDA PAK ([id number])[facility])[address] [place] [address] OXYCODONE/OXYMORPHONE Negative Normal Negative [facility] Comment on above: Performed By: #### L [id number] ####District Court Judge: AMANDA PAK ([id number])[facility] [place] [address] PCP Negative Normal Negative [facility] Comment on above: Performed By: #### L [id number] ####District Court Judge: AMANDA PAK ([id number])[facility] ([facility])[address] [place] [address] THC-MTTHC Negative Normal Negative [facility] Comment on above: Performed By: #### L [id number] ####District Court Judge: AMANDA PAK ([id number])[facility] ([facility])[address] [place] [address] Office Visiton 11-18-2023 Follow-up visit [id number] Oksana Bradford 1985 F Date Provider Department Center 11/18/2023 [id number]-TEHVXMIYA OCONNELL [facility] ACD- None No family history on file Level of Service:43119 LA OFFICE/OUTPATIENT ESTABLISHED MOD MDM 30 MIN Reason for Visit and Comments: Drug / Alcohol Assessment [[id number]] Normal [facility] Progress Noteon 11-18-2023 Progress Note Chief Complaint [...] did provide verification of her treatment at [facility]. She was admitted to their program April 29 and discharged on October 06. She continues in counseling at [facility] She is currently living with her parents. She is attending [facility]. There are legal issues pending with [facility] courts-she is currently on probation. At this [...] Strain: Not on File (05/14/2023) Received from [employer] Strain Financial Resource Strain: 0 Food Insecurity: Not on File (05/14/2023) Received from [employer] Food Insecurity Food: 0 Transportation Needs: Not on File (05/14/2023) Received from [employer] Transportation Needs Transportation: 0 Physical Activity: Not on File (05/14/2023) Received from [employer] Physical Activity Physical Activity: 0 Stress: Not on File (05/14/2023) Received from [employer] Stress Stress: 0 Social Connections: Not on File (05/14/2023) Received from [employer] Social [employer]ctions Social Connections and Isolation: 0 Intimate Partner Violence: Not on file Housing Stability: Not on File (05/14/2023) Received from [employer] No family history on file. 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 5. Keep medicine out [...] up in about 2 weeks (around 12/02/2023). [facility] MEDICATION ASSISTED TREATMEN T PANELOrdered By: Aruna Parson on 11-12-2023 Amphetamines Ql (U) Negative Negative [facility] Barbiturates screen method Nom (U) Negative Negative [facility] Benzodiazepines screen method Nom (U) Negative Negative [facility] BUPRENORPHINE SCREEN Positive Negative [facility] Cocaine Ql (U) Negative Negative [facility] Ethanol [Mass/Vol] Negative Negative [facility] FENTANYL Negative Negative [facility] Methadone Ql (U) Negative Negative [facility] Opiates Screen Ql (U) Negative Negative [facility] OXYCODONE/OXYMORPHONE Negative Negative [facility] PCP Negative Negative [facility] THC Negative Negative [facility] The expected value f or the [...] treatment only. Analysis performed using non-forensic procedures. [facility] MEDICATION ASSISTED TREATMEN T PANELon 11-11-2023 Amphetamines Ql (U) Negative Normal Negative [facility] Comment on above: Performed By: #### L [id number] ####District Court Judge: AMANDA PAK ([id number])[facility])[address] [place] [address] BARBITURATES Negative Normal Negative [facility] Comment on above: Performed By: #### L [id number] ####District Court Judge: AMANDA PAK ([id number])[facility] ([facility])[address] [place] [address] Benzodiazepines Ql (U) Negative Normal Negative [facility] Comment on above: Performed By: #### L [id number] ####District Court Judge: AMANDA PAK ([id number])[facility] ([facility])[address] [place] [address] BUPRENORPHINE SCREEN Positive Normal Negative [facility] Comment on above: Performed By: #### L [id number] ####District Court Judge: AMANDA PAK ([id number])[facility] ([facility])[address] [place] [address] Cocaine Ql (U) Negative Normal Negative [facility] Comment on above: Performed By: #### L [id number] ####District Court Judge: AMANDA PAK ([id number])[facility] ([facility])[address] [place] [address] ETHANOL-ETOHO Negative Normal Negative [facility] Comment on above: Result Comment: JOHNY R COMMENTS: The expected value for the [...] using non-forensic procedures. Performed By: #### L [id number] ####District Court Judge: AMANDA PAK ([id number])[facility] ([facility])[address] [place] [address] FENTANYL Negative Normal Negative [facility] Comment on above: Performed By: #### L [id number] ####District Court Judge: AMANDA PAK ([id number])[facility] ([facility])[address] [place] [address] Methadone Ql (U) Negative Normal Negative [facility] Comment on above: Performed By: #### L [id number] ####District Court Judge: AMANDA PAK ([id number])[facility] [place] [address] Opiates Ql (U) Negative Normal Negative [facility] Comment on above: Performed By: #### L [id number] ####District Court Judge: AMANDA PAK ([id number])[facility] [place] [address] OXYCODONE/OXYMORPHONE Negative Normal Negative [place] [facility] Comment on above: Performed By: #### L [id number] ####District Court Judge: AMANDA PAK ([id number])[facility] ([facility])[address] [place] [address] PCP Negative Normal Negative [facility] Comment on above: Performed By: #### L [id number] ####District Court Judge: AMANDA PAK ([id number])[facility])[address] [place] [address] THC-MTTHC Negative Normal Negative [facility] Comment on above: Performed By: #### L [id number] ####District Court Judge: AMANDA PAK ([id number])[facility] ([facility])[address] [place] [address] Office Visiton 11-11-2023 Follow-up visit [id number] Oksana Bradford fartun Bae 1985 F Date Provider Department Center 11/11/2023 [id number] OCONNELL [facility] ACD- None No family history on file Level of Service:23888 LA OFFICE/OUTPATIENT [facility] 45 MINUTES Reason for Visit and Comments: Drug / Alcohol Assessment [423775] Normal [facility] Progress Noteon 11-11-2023 Progress Note Chief Complaint [...] patient is a 38-year-old female presenting to [facility] for treatment of opiate dependence, stimulant abuse [...] this occurred, she engaged in treatment at [facility] and claims that she completed their program and continues with aftercare with this program. We are in process of trying to obtain information to confirm this. Since leaving [facility], she has not been able to find [...] I have elected to obtain information from [facility] to confirm her engagement in treatment. Urine [...] Strain: Not on File (05/14/2023) Received from [employer] Financial Resource Strain: 0 Food Insecurity: Not on File (05/14/2023) Received from [employer] Food Insecurity Food: 0 Transportation Needs: Not on File (05/14/2023) Received from [employer] Transportation Needs Transportation: 0 Physical Activity: Not on File (05/14/2023) Received from [employer] Physical Activity Physical Activity: 0 Stress: Not on File (05/14/2023) Received from [employer] Stress Stress: 0 Social Connections: Not on File (05/14/2023) Received from [employer] [facility] Social Connections and Isolation: 0 Intimate Partner Violence: Not on file Housing Stability: Not on File (05/14/2023) Received from [employer] Housing Stability Housin No family history on [...] 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 5. Keep medicine out of the reach of children. 6. Follow-up with recommended level of care. (more content not included)... Normal [facility] Cult, Blood 05-03-2023 Cult, Blood Specimen Description .BLOOD .ARM LEFT Special Requests Culture NO GROWTH 5 DAYS Report Status FINAL 05/02/2023 [facility] Comment on above: Performed By: #### C MPX, CK, CALLI, CBCWD, LACTIC, MG #### [place] [address] Security Intern: Nathan Arrieta MD [facility] 05-03-2023 Cult,Blood Specimen Description .BLOOD RIGHT .HAND Special Requests Culture NO GROWTH 5 DAYS Report Status FINAL 05/02/2023 [facility] Comment on above: Performed By: #### C MPX, CK, CALLI, CBCWD, LACTIC, MG #### [place] [address] Security Intern: Nathan Arrieta MD, Blood 05-01-2023 Cult, Blood Specimen Description .BLOOD RIGHT .HAND Special Requests Culture NO GROWTH 5 DAYS Report Status FINAL 05/01/2023 Normal [facility] Comment on above: Performed By: #### C MPX, CK, CALLI, CBCWD, LACTIC, MG #### [place] [address] [facility] [place] [address] Security Intern: Nathan Arrieta MD Cult,Bloodon 05-01-2023 Cult,Blood Specimen Description .BLOOD .ARM LEFT Special Requests Culture NO GROWTH 5 DAYS Report Status FINAL 05/01/2023 Normal [facility] Comment on above: Performed By: #### C MPX, CK, CALLI, CBCWD, LACTIC, MG #### [address] [place] [address] Security Intern: Nathan Arrieta MD Cult,Respiratoryon Cult,Respiratory Specimen Description [...] Vancomycin <=0.5 SUSCEPTIBLE Doxycycline <=0.5 SUSCEPTIBLE Susceptible [facility] Comment on above: Performed By: #### C MPX, CK, CALLI, CBCWD, LACTIC, MG #### [place] [address] [facility] [place] [address] Security Intern: Nathan Arrieta MD Basic Metabolic Profon 04-29 Anion gap [Moles/Vol] 13 mmol/L Normal 7-16 [facility] Comment on above: Performed By: #### C MPX, CK, CALLI, CBCWD, LACTIC, MG #### [address] [place] [address] Security Intern: Nathan Arrieta MD Calcium [Mass/Vol] 8.1 mg/dL Low 8.6-10.2 [facility] Comment on above: Performed By: #### C MPX, CK, CALLI, CBCWD, LACTIC, MG #### [address] [place] [address] Security Intern: Nathan Arrieta MD Chloride [Moles/Vol] 107 mmol/L Normal 98-107 [facility] Comment on above: Performed By: #### C MPX, CK, CLALI, CBCWD, LACTIC, MG #### [place] [address] Security Intern: Nathan Arrieta MD CO2 [Moles/Vol] 23 mmol/L Normal 22-29 [facility] Comment on above: Performed By: #### C MPX, CK, CALLI, CBCWD, LACTIC, MG #### [address] [place] [address] Security Intern: Nathan Arrieta MD Creatinine [Mass/Vol] 0.5 mg/dL Normal 0.50-1.00 [facility] Comment on above: Performed By: #### C MPX, CK, CALLI, CBCWD, LACTIC, MG #### [place] [address] Security Intern: Nathan Arrieta MD GFR/1.73 sq M.predicted among non-blacks MDRD (S/P/Bld) [Vol rate/Area] mL/min/{1.73_m2} Normal >60 [facility] Comment on above: Result Comment: These [...] MPX, CK, CALLI, CBCWD, LACTIC, MG #### [address] [place] [address] Security Intern: Nathan Arrieta MD Glucose [Mass/Vol] 85 mg/dL Normal 74-99 [facility] Comment on above: Performed By: #### C MPX, CK, CALLI, CBCWD, LACTIC, MG #### [address] [place] [address] Security Intern: Nathan Arrieta MD Potassium [Moles/Vol] 3.8 mmol/L Normal 3.5-5.0 [facility] Comment on above: Performed By: #### C MPX, CK, CALLI, CBCWD, LACTIC, MG #### [address] [place] [address] Security Intern: Nathan Arrieta MD Sodium [Moles/Vol] 143 mmol/L Normal 132-146 [facility] Comment on above: Performed By: #### C MPX, CK, CALLI, CBCWD, LACTIC, MG #### [address] [place] [address] Security Intern: Nathan Arrieta MD Urea nitrogen [Mass/Vol] 6 mg/dL Normal 6-20 [facility] Comment on above: Performed By: #### C MPX, CK, CALLI, CBCWD, LACTIC, MG #### [address] [place] [address] Security Intern: Nathan Arrieta MD CBC with Diffon 04-29-2023 Abs. Basophil 0.03 k/uL Normal 0.00-0.20 [facility] Comment on above: Performed By: #### C MPX, CK, CALLI, CBCWD, LACTIC, MG #### [place] [address] Security Intern: Nathan Arrieta MD Abs.Imm.Granulocyte <0.03 Normal 0.00-0.58 [facility] Comment on above: Performed By: #### C MPX, CK, CALLI, CBCWD, LACTIC, MG #### [place] [address] Security Intern: Nathan Arrieta MD Abs.Neutrophil (Seg) 4.02 k/uL Normal 1.80-7.30 [facility] Comment on above: Performed By: #### C MPX, CK, CALLI, CBCWD, LACTIC, MG #### [place] [address] Security Intern: Nathan Arrieta MD Basophils/100 WBC (Bld) 0 % Normal 0.0-2.0 [facility] Comment on above: Performed By: #### C MPX, CK, CALLI, CBCWD, LACTIC, MG #### [place] [address] Security Intern: Nathan Arrieta MD Eosinophils (Bld) [#/Vol] 0.74 10*3/uL High 0.05-0.50 [facility] Comment on above: Performed By: #### C MPX, CK, CALLI, CBCWD, LACTIC, MG #### [place] [address] Security Intern: Nathan Arrieta MD Eosinophils/100 WBC (Bld) 8 % High 0-6 [facility] Comment on above: Performed By: #### C MPX, CK, CALLI, CBCWD, LACTIC, MG #### [place] [address] Security Intern: Nathan Arrieta MD Erythrocyte distribution width (RBC) [Ratio] 14.1 % Normal 11.5-15.0 [facility] Comment on above: Performed By: #### C MPX, CK, CALLI, CBCWD, LACTIC, MG #### [place] [address] Security Intern: Nathan Arrieta MD Hematocrit (Bld) [Volume fraction] 31.0 % Low 34.0-48.0 [facility] Comment on above: Performed By: #### C MPX, CK, CALLI, CBCWD, LACTIC, MG #### [place] [address] Security Intern: Nathan Arrieta MD Hemoglobin (Bld) [Mass/Vol] 9.7 g/dL Low 11.5-15.5 [facility] Comment on above: Performed By: #### C MPX, CK, CALLI, CBCWD, LACTIC, MG #### [place] [address] Security Intern: Nathan Arrieta MD Immature granulocytes/100 WBC (Bld) 0 % Normal 0.0-5.0 [facility] Comment on above: Performed By: #### C MPX, CK, CALLI, CBCWD, LACTIC, MG #### [place] [address] Security Intern: Nathan Arrieta MD Lymphocytes (Bld) [#/Vol] 3.22 10*3/uL Normal 1.50-4.00 [facility] Comment on above: Performed By: #### C MPX, CK, CALLI, CBCWD, LACTIC, MG #### [address] [place] [address] Security Intern: Nathan Arrieta MD Lymphocytes/100 WBC (Bld) 36 % Normal 20.0-42.0 [facility] Comment on above: Performed By: #### C MPX, CK, CALLI, CBCWD, LACTIC, MG #### [address] [place] [address] Security Intern: Nathan Arrieta MD MCH (RBC) [Entitic mass] 26.7 pg Normal 26.0-35.0 [facility] Comment on above: Performed By: #### C MPX, CK, CALLI, CBCWD, LACTIC, MG #### [address] [place] [address] Security Intern: Nathan Arrieta MD MCHC (RBC) [Mass/Vol] 31.3 g/dL Low 32.0-34.5 [facility] Comment on above: Performed By: #### C MPX, CK, CALLI, CBCWD, LACTIC, MG #### [address] [place] [address] Security Intern: Nathan Arrieta MD MCV (RBC) [Entitic vol] 85.4 fL Normal 80.0-99.9 [facility] Comment on above: Performed By: #### C MPX, CK, CALLI, CBCWD, LACTIC, MG #### [address] [place] [address] Security Intern: Nathan Arrieta MD Monocytes (Bld) [#/Vol] 0.86 10*3/uL Normal 0.10-0.95 [facility] Comment on above: Performed By: #### C MPX, CK, CALLI, CBCWD, LACTIC, MG #### [address] [place] [address] Security Intern: Nathan Arrieta MD Monocytes/100 WBC (Bld) 10 % Normal 2.0-12.0 [facility] Comment on above: Performed By: #### C MPX, CK, CALLI, CBCWD, LACTIC, MG #### [address] [place] [address] Security Intern: Nathan Arrieta MD Neutrophil (Seg) 45 % Normal 43.0-80.0 [facility] Comment on above: Performed By: #### C MPX, CK, CALLI, CBCWD, LACTIC, MG #### [address] [place] [address] Security Intern: Nathan Arrieta MD Platelet mean volume (Bld) [Entitic vol] 10.8 fL Normal 7.0-12.0 [facility] Comment on above: Performed By: #### C MPX, CK, CALLI, CBCWD, LACTIC, MG #### [address] [place] [address] Security Intern: Nathan Arrieta MD Platelets (Bld) [#/Vol] 280 10*3/uL Normal 130-450 [facility] Comment on above: Performed By: #### C MPX, CK, CALLI, CBCWD, LACTIC, MG #### [address] [place] [id number] Security Intern: Nathan Arrieta MD RBC (Bld) [#/Vol] 3.63 10*6/uL Normal 3.50-5.50 [facility] Comment on above: Performed By: #### C MPX, CK, CALLI, CBCWD, LACTIC, MG #### [place] [address] Security Intern: Nathan Arrieta MD WBC (Bld) [#/Vol] 8.9 10*3/uL Normal 4.5-11.5 [facility] Comment on above: Performed By: #### C MPX, CK, CALLI, CBCWD, LACTIC, MG #### [place] [address] Security Intern: Nathan Arrieta MD CBC with Diffon 04-28-2023 Abs. Basophil 0.03 k/uL Normal 0.00-0.20 [facility] Comment on above: Performed By: #### C MPX, CK, CALLI, CBCWD, LACTIC, MG #### [place] [address] Security Intern: Nathan Arrieta MD Abs.Imm.Granulocyte 0.06 k/uL Normal 0.00-0.58 [facility] Comment on above: Performed By: #### C MPX, CK, CALLI, CBCWD, LACTIC, MG #### [place] [address] Security Intern: Nathan Arrieta MD Abs.Neutrophil (Seg) 7.98 k/uL High 1.80-7.30 [facility] Comment on above: Performed By: #### C MPX, CK, CALLI, CBCWD, LACTIC, MG #### [place] [address] Security Intern: Nathan Arrieta MD Basophils/100 WBC (Bld) 0 % Normal 0.0-2.0 [facility] Comment on above: Performed By: #### C MPX, CK, CALLI, CBCWD, LACTIC, MG #### [place] [address] Security Intern: Nathan Arrieta MD Eosinophils (Bld) [#/Vol] 0.43 10*3/uL Normal 0.05-0.50 [facility] Comment on above: Performed By: #### C MPX, CK, CALLI, CBCWD, LACTIC, MG #### [place] [address] Security Intern: Nathan Arrieta MD Eosinophils/100 WBC (Bld) 4 % Normal 0-6 [facility] Comment on above: Performed By: #### C MPX, CK, CALLI, CBCWD, LACTIC, MG #### [place] [address] Security Intern: Nathan Arrieta MD Erythrocyte distribution width (RBC) [Ratio] 14.2 % Normal 11.5-15.0 [facility] Comment on above: Performed By: #### C MPX, CK, CALLI, CBCWD, LACTIC, MG #### [place] [address] Security Intern: Nathan Arrieta MD Hematocrit (Bld) [Volume fraction] 30.8 % Low 34.0-48.0 [facility] Comment on above: Performed By: #### C MPX, CK, CALLI, CBCWD, LACTIC, MG #### [place] [address] Security Intern: Nathan Arrieta MD Hemoglobin (Bld) [Mass/Vol] 9.7 g/dL Low 11.5-15.5 [facility] Comment on above: Performed By: #### C MPX, CK, CALLI, CBCWD, LACTIC, MG #### [place] [address] Security Intern: Nathan Arrieta MD Immature granulocytes/100 WBC (Bld) 1 % Normal 0.0-5.0 [facility] Comment on above: Performed By: #### C MPX, CK, CALLI, CBCWD, LACTIC, MG #### [address] [place] [address] Security Intern: Nathan Arrieta MD Lymphocytes (Bld) [#/Vol] 2.72 10*3/uL Normal 1.50-4.00 [facility] Comment on above: Performed By: #### C MPX, CK, CALLI, CBCWD, LACTIC, MG #### [place] [address] Security Intern: Nathan Arrieta MD Lymphocytes/100 WBC (Bld) 22 % Normal 20.0-42.0 [facility] Comment on above: Performed By: #### C MPX, CK, CALLI, CBCWD, LACTIC, MG #### [place] [address] Security Intern: Nathan Arrieta MD MCH (RBC) [Entitic mass] 26.9 pg Normal 26.0-35.0 [facility] Comment on above: Performed By: #### C MPX, CK, CALLI, CBCWD, LACTIC, MG #### [place] [address] Security Intern: Nathan Arrieta MD MCHC (RBC) [Mass/Vol] 31.5 g/dL Low 32.0-34.5 [facility] Comment on above: Performed By: #### C MPX, CK, CALLI, CBCWD, LACTIC, MG #### [place] [address] Security Intern: Nathan Arrieta MD MCV (RBC) [Entitic vol] 85.6 fL Normal 80.0-99.9 [facility] Comment on above: Performed By: #### C MPX, CK, CALLI, CBCWD, LACTIC, MG #### [facility] [address] [place] [address] Security Intern: Nathan Arrieta MD Monocytes (Bld) [#/Vol] 1.11 10*3/uL High 0.10-0.95 [facility] Comment on above: Performed By: #### C MPX, CK, CALLI, CBCWD, LACTIC, MG #### [address] [place] [address] Security Intern: Nathan Arrieta MD Monocytes/100 WBC (Bld) 9 % Normal 2.0-12.0 [facility] Comment on above: Performed By: #### C MPX, CK, CALLI, CBCWD, LACTIC, MG #### [address] [place] [address] Security Intern: Nathan Arrieta MD Neutrophil (Seg) 65 % Normal 43.0-80.0 [facility] Comment on above: Performed By: #### C MPX, CK, CALLI, CBCWD, LACTIC, MG #### [address] [place] [address] Security Intern: Nathan Arrieta MD Platelet mean volume (Bld) [Entitic vol] 10.5 fL Normal 7.0-12.0 [facility] Comment on above: Performed By: #### C MPX, CK, CALLI, CBCWD, LACTIC, MG #### [address] [place] [address] Security Intern: Nathan Arrieta MD Platelets (Bld) [#/Vol] 276 10*3/uL Normal 130-450 [facility] Comment on above: Performed By: #### C MPX, CK, CALLI, CBCWD, LACTIC, MG #### [address] [place], [place] [id number] Security Intern: Nathan Arrieta MD RBC (Bld) [#/Vol] 3.60 10*6/uL Normal 3.50-5.50 [facility] Comment on above: Performed By: #### C MPX, CK, CALLI, CBCWD, LACTIC, MG #### [address] [place] [address] Security Intern: Nathan rArieta MD WBC (Bld) [#/Vol] 12.3 10*3/uL High 4.5-11.5 [facility] Comment on above: Performed By: #### C MPX, CK, CALLI, CBCWD, LACTIC, MG #### [address] [place] [address] Security Intern: Nathan Arrieta MD Comp Metabolic Pr/rfx MGon 1 - Albumin [Mass/Vol] 2.9 g/dL Low 3.5-5.2 [facility] Comment on above: Performed By: #### C MPX, CK, CALLI, CBCWD, LACTIC, MG #### [address] [place] [address] Security Intern: Nathan Arrieta MD Alkaline Phos 50 U/L Normal 35-104 [facility] Comment on above: Performed By: #### C MPX, CK, CALLI, CBCWD, LACTIC, MG #### [address] [place] [address] Security Intern: Nathan Arrieta MD ALT [Catalytic activity/Vol] 26 U/L Normal 0-32 [facility] Comment on above: Performed By: #### C MPX, CK, CALLI, CBCWD, LACTIC, MG #### [address] [place], [place] [id number] Security Intern: Nathan Arrieta MD Anion gap [Moles/Vol] 14 mmol/L Normal 7-16 [facility] Comment on above: Performed By: #### C MPX, CK, CALLI, CBCWD, LACTIC, MG #### [place] [address] Security Intern: Nathan Arrieta MD AST [Catalytic activity/Vol] 40 U/L High 0-31 [facility] Comment on above: Performed By: #### C MPX, CK, CALLI, CBCWD, LACTIC, MG #### [place] [address] Security Intern: Nathan Arrieta MD Bilirubin [Mass/Vol] 0.2 mg/dL Normal 0.0-1.2 [facility] Comment on above: Performed By: #### C MPX, CK, CALLI, CBCWD, LACTIC, MG #### [place] [address] Security Intern: Nathan Arrieta MD Calcium [Mass/Vol] 7.9 mg/dL Low 8.6-10.2 [facility] Comment on above: Performed By: #### C MPX, CK, CALLI, CBCWD, LACTIC, MG #### [address] [place] [address] Security Intern: Nathan Arrieta MD Chloride [Moles/Vol] 107 mmol/L Normal 98-107 [facility] Comment on above: Performed By: #### C MPX, CK, CALLI, CBCWD, LACTIC, MG #### [address] [place] [address] Security Intern: Nathan Arrieta MD CO2 [Moles/Vol] 23 mmol/L Normal 22-29 [facility] Comment on above: Performed By: #### C MPX, CK, CALLI, CBCWD, LACTIC, MG #### [address] [place] [address] Security Intern: Nathan Arrieta MD Creatinine [Mass/Vol] 0.5 mg/dL Normal 0.50-1.00 [facility] Comment on above: Performed By: #### C MPX, CK, CALLI, CBCWD, LACTIC, MG #### [address] [place] [address] Security Intern: Nathan Arrieta MD GFR/1.73 sq M.predicted among non-blacks MDRD (S/P/Bld) [Vol rate/Area] mL/min/{1.73_m2} Normal >60 [facility] Comment on above: Result Comment: These [...] MPX, CK, CALLI, CBCWD, LACTIC, MG #### [address] [place] [address] Security Intern: Nathan Arrieta MD Glucose [Mass/Vol] 79 mg/dL Normal 74-99 [facility] Comment on above: Performed By: #### C MPX, CK, CALLI, CBCWD, LACTIC, MG #### [address] [place] [address] Security Intern: Nathan Arrieta MD Potassium [Moles/Vol] 3.8 mmol/L Normal 3.5-5.0 [facility] Comment on above: Performed By: #### C MPX, CK, CALLI, CBCWD, LACTIC, MG #### [address] [place], [place] [id number] Security Intern: Nathan Arrieta MD Protein [Mass/Vol] 5.6 g/dL Low 6.4-8.3 [facility] Comment on above: Performed By: #### C MPX, CK, CALLI, CBCWD, LACTIC, MG #### [address] [place], [place] [phone] Security Intern: Nathan Arrieta MD Sodium [Moles/Vol] 144 mmol/L Normal 132-146 [facility] Comment on above: Performed By: #### C MPX, CK, CALLI, CBCWD, LACTIC, MG #### [address] [id number] Security Intern: Nathan Arrieta MD Urea nitrogen [Mass/Vol] 6 mg/dL Normal 6-20 [facility] Comment on above: Performed By: #### C MPX, CK, CALLI, CBCWD, LACTIC, MG #### [address] [place] [address] Security Intern: Nathan Arrieta MD HCV Quant with Reflex to HCV Genotypeon 04-28-2023 HCV Qnt by NAAT (IU/mL) Not detected Normal [facility] Comment on above: Performed By: #### C MPX, CK, CALLI, CBCWD, LACTIC, MG #### [address] [place], [place] [id number] Security Intern: Nathan Arrieta MD HCV Qnt by NAAT (log IU/mL) Not detected Normal [facility] Comment on above: Result Comment: (NOT [...] MPX, CK, CALLI, CBCWD, LACTIC, MG #### [address] [place], [place] [id number] Security Intern: Nathan Arrieta MD HCV Qnt by NAAT Interp Not detected Normal Not Detecte d [facility] Comment on above: Result Comment: (NOT [...] and Cellular Tissue-Based Products (HCT/P). Performed By: [facility] [address] [place] [id number] [employer] Br[employer]her: Aimee Bernardo MD, PhD CLIA Number: [id number] Performed By: #### C MPX, CK, CALLI, CBCWD, LACTIC, MG #### [address] [place] [address] Security Intern: Nathan Arrieta MD Magnesiumon 04-28-2023 Magnesium [Mass/Vol] 2.0 mg/dL Normal 1.6-2.6 [facility] Comment on above: Performed By: #### C MPX, CK, CALLI, CBCWD, LACTIC, MG #### [address] [place], [place] [phone] Security Intern: Nathan Arrieta MD Phosphorus, Inorg.on 023 Phosphorus, Inorg. 3.2 mg/dL Normal 2.5-4.5 [facility] Comment on above: Performed By: #### C MPX, CK, CALLI, CBCWD, LACTIC, MG #### [place] [address] Security Intern: Nathan Arrieta MD CBC with Diffon 04-27-2023 Abs. Basophil 0.04 k/uL Normal 0.00-0.20 [facility] Comment on above: Performed By: #### C MPX, CK, CALLI, CBCWD, LACTIC, MG #### [place] [address] Security Intern: Nathan Arrieta MD Abs.Imm.Granulocyte 0.07 k/uL Normal 0.00-0.58 [facility] Comment on above: Performed By: #### C MPX, CK, CALLI, CBCWD, LACTIC, MG #### [place] [address] Security Intern: Nathan Arrieta MD Abs.Neutrophil (Seg) 10.96 k/uL High 1.80-7.30 [facility] Comment on above: Performed By: #### C MPX, CK, CALLI, CBCWD, LACTIC, MG #### [place] [address] Security Intern: Nathan Arrieta MD Basophils/100 WBC (Bld) 0 % Normal 0.0-2.0 [facility] Comment on above: Performed By: #### C MPX, CK, CALLI, CBCWD, LACTIC, MG #### [place] [address] Security Intern: Nathan Arrieta MD Eosinophils (Bld) [#/Vol] 0.46 10*3/uL Normal 0.05-0.50 [facility] Comment on above: Performed By: #### C MPX, CK, CALLI, CBCWD, LACTIC, MG #### [address] [place] [address] Security Intern: Nathan Arrieta MD Eosinophils/100 WBC (Bld) 3 % Normal 0-6 [facility] Comment on above: Performed By: #### C MPX, CK, CALLI, CBCWD, LACTIC, MG #### [place] [address] Security Intern: Nathan Arrieta MD Erythrocyte distribution width (RBC) [Ratio] 14.3 % Normal 11.5-15.0 [facility] Comment on above: Performed By: #### C MPX, CK, CALLI, CBCWD, LACTIC, MG #### [place] [address] Security Intern: Nathan Arrieta MD Hematocrit (Bld) [Volume fraction] 33.7 % Low 34.0-48.0 [facility] Comment on above: Performed By: #### C MPX, CK, CALLI, CBCWD, LACTIC, MG #### [address] [place] [address] Security Intern: Nathan Arrieta MD Hemoglobin (Bld) [Mass/Vol] 10.4 g/dL Low 11.5-15.5 [facility] Comment on above: Performed By: #### C MPX, CK, CALLI, CBCWD, LACTIC, MG #### [place] [address] Security Intern: Nathan Arrieta MD Immature granulocytes/100 WBC (Bld) 1 % Normal 0.0-5.0 [facility] Comment on above: Performed By: #### C MPX, CK, CALLI, CBCWD, LACTIC, MG #### [address] [place] [address] Security Intern: Nathan Arrieta MD Lymphocytes (Bld) [#/Vol] 2.05 10*3/uL Normal 1.50-4.00 [facility] Comment on above: Performed By: #### C MPX, CK, CALLI, CBCWD, LACTIC, MG #### [address] [place] [address] Security Intern: Nathan Arrieta MD Lymphocytes/100 WBC (Bld) 14 % Low 20.0-42.0 [facility] Comment on above: Performed By: #### C MPX, CK, CALLI, CBCWD, LACTIC, MG #### [address] [place] [address] Security Intern: Nathan Arrieta MD MCH (RBC) [Entitic mass] 26.7 pg Normal 26.0-35.0 [facility] Comment on above: Performed By: #### C MPX, CK, CALLI, CBCWD, LACTIC, MG #### [address] [place] [address] Security Intern: Nathan Arrieta MD MCHC (RBC) [Mass/Vol] 30.9 g/dL Low 32.0-34.5 [facility] Comment on above: Performed By: #### C MPX, CK, CALLI, CBCWD, LACTIC, MG #### [address] [place] [address] Security Intern: Nathan Arrieta MD MCV (RBC) [Entitic vol] 86.4 fL Normal 80.0-99.9 [facility] Comment on above: Performed By: #### C MPX, CK, CLALI, CBCWD, LACTIC, MG #### [address] [place] [address] Security Intern: Nathan Arrieta MD Monocytes (Bld) [#/Vol] 1.11 10*3/uL High 0.10-0.95 [facility] Comment on above: Performed By: #### C MPX, CK, CALLI, CBCWD, LACTIC, MG #### [place] [address] Security Intern: Nathan Arrieta MD Monocytes/100 WBC (Bld) 8 % Normal 2.0-12.0 [facility] Comment on above: Performed By: #### C MPX, CK, CALLI, CBCWD, LACTIC, MG #### [address] [place] [address] Security Intern: Nathan Arrieta MD Neutrophil (Seg) 75 % Normal 43.0-80.0 [facility] Comment on above: Performed By: #### C MPX, CK, CALLI, CBCWD, LACTIC, MG #### [address] [place] [address] Security Intern: Nathan Arrieta MD Platelet mean volume (Bld) [Entitic vol] 10.1 fL Normal 7.0-12.0 [facility] Comment on above: Performed By: #### C MPX, CK, CALLI, CBCWD, LACTIC, MG #### [address] [place] [address] Security Intern: Nathan Arrieta MD Platelets (Bld) [#/Vol] 312 10*3/uL Normal 130-450 [facility] Comment on above: Performed By: #### C MPX, CK, CALLI, CBCWD, LACTIC, MG #### [address], [place] [id number] Security Intern: Nathan Arrieta MD RBC (Bld) [#/Vol] 3.90 10*6/uL Normal 3.50-5.50 [facility] Comment on above: Performed By: #### C MPX, CK, CALLI, CBCWD, LACTIC, MG #### [facility] [address] [place] [address]. [place], [place] [phone] Security Intern: Nathan Arrieta MD WBC (Bld) [#/Vol] 14.7 10*3/uL High 4.5-11.5 [facility] Comment on above: Performed By: #### C MPX, CK, CALLI, CBCWD, LACTIC, MG #### [address] [place] [address] Security Intern: Nathan Arrieta MD Comp Metabolic Pr/rfx MGon 1 - Albumin [Mass/Vol] 3.1 g/dL Low 3.5-5.2 [facility] Comment on above: Performed By: #### C MPX, CK, CALLI, CBCWD, LACTIC, MG #### [address] [place] [address] Security Intern: Nathan Arrieta MD Alkaline Phos 52 U/L Normal 35-104 [facility] Comment on above: Performed By: #### C MPX, CK, CALLI, CBCWD, LACTIC, MG #### [address] [place] [address] Security Intern: Nathan Arrieta MD ALT [Catalytic activity/Vol] 22 U/L Normal 0-32 [facility] Comment on above: Performed By: #### C MPX, CK, CALLI, CBCWD, LACTIC, MG #### [address] [place], [place] [phone] Security Intern: Nathan Arrieta MD Anion gap [Moles/Vol] 13 mmol/L Normal 7-16 [facility] Comment on above: Performed By: #### C MPX, CK, CALLI, CBCWD, LACTIC, MG #### [address] [phone] Security Intern: Nathan Arrieta MD AST [Catalytic activity/Vol] 26 U/L Normal 0-31 [facility] Comment on above: Performed By: #### C MPX, CK, CALLI, CBCWD, LACTIC, MG #### [place] [address] Security Intern: Nathan Arrieta MD Bilirubin [Mass/Vol] 0.2 mg/dL Normal 0.0-1.2 [facility] Comment on above: Performed By: #### C MPX, CK, CALLI, CBCWD, LACTIC, MG #### [place] [address] Security Intern: Nathan Arrieta MD Calcium [Mass/Vol] 8.1 mg/dL Low 8.6-10.2 [facility] Comment on above: Performed By: #### C MPX, CK, CALLI, CBCWD, LACTIC, MG #### [address] [address] Security Intern: Nathan Arrieta MD Chloride [Moles/Vol] 108 mmol/L High 98-107 [facility] Comment on above: Performed By: #### C MPX, CK, CALLI, CBCWD, LACTIC, MG #### [address] [address] Security Intern: Nathan Arrieta MD CO2 [Moles/Vol] 20 mmol/L Low 22-29 [facility] Comment on above: Performed By: #### C MPX, CK, CALLI, CBCWD, LACTIC, MG #### [place] [address] Security Intern: Nathan Arrieta MD Creatinine [Mass/Vol] 0.7 mg/dL Normal 0.50-1.00 [facility] Comment on above: Performed By: #### C MPX, CK, CALLI, CBCWD, LACTIC, MG #### [place] [address] Security Intern: Nathan Arrieta MD GFR/1.73 sq M.predicted among non-blacks MDRD (S/P/Bld) [Vol rate/Area] mL/min/{1.73_m2} Normal >60 [facility] Comment on above: Result Comment: These [...] MPX, CK, CALLI, CBCWD, LACTIC, MG #### [place] [address] Security Intern: Nathan Arrieta MD Glucose [Mass/Vol] 103 mg/dL High 74-99 [facility] Comment on above: Performed By: #### C MPX, CK, CALLI, CBCWD, LACTIC, MG #### [place] [address] Security Intern: Nathan Arrieta MD Potassium [Moles/Vol] 3.1 mmol/L Low 3.5-5.0 [facility] Comment on above: Performed By: #### C MPX, CK, CALLI, CBCWD, LACTIC, MG #### [address] [place], [place] [phone] Security Intern: Nathan Arrieta MD Protein [Mass/Vol] 5.6 g/dL Low 6.4-8.3 [facility] Comment on above: Performed By: #### C MPX, CK, CALLI, CBCWD, LACTIC, MG #### [address] [place] [address] Security Intern: Nathan Arrieta MD Sodium [Moles/Vol] 141 mmol/L Normal 132-146 [facility] Comment on above: Performed By: #### C MPX, CK, CALLI, CBCWD, LACTIC, MG #### [address] [phone] Security Intern: Nathan Arrieta MD Urea nitrogen [Mass/Vol] 6 mg/dL Normal 6-20 [facility] Comment on above: Performed By: #### C MPX, CK, CALLI, CBCWD, LACTIC, MG #### [address] [place] [address] Security Intern: Nathan Arrieta MD Creatine Kinaseon 04-27-2023 CK [Catalytic activity/Vol] 381 U/L High 20-180 [facility] Comment on above: Performed By: #### C MPX, CK, CALLI, CBCWD, LACTIC, MG #### [address] [address] Security Intern: Nathan Arrieta MD Glucose,Whole Bloodon 2022 Glucose [Mass/Vol] 93 mg/dL Normal 74-99 [facility] Glucose [Mass/Vol] 79 mg/dL Normal 74-99 [facility] HIV Ag/Abon 04-27-2023 HIV Ag/Ab Non-Reactive Normal NR [facility] Comment on above: Performed By: #### C MPX, CK, CALLI, CBCWD, LACTIC, MG #### [address] [address] Security Intern: Nathan Arrieta MD Hepatitis Acute [facility] 04-27 Hep A Ab,IgM Non-Reactive Normal [facility] Comment on above: Performed By: #### C MPX, CK, CALLI, CBCWD, LACTIC, MG #### [address] [address] Security Intern: Nathan Arrieta MD Hep B Core Ab,IgM Non-Reactive Normal [facility] Comment on above: Performed By: #### C MPX, CK, CALLI, CBCWD, LACTIC, MG #### [place] [address] Security Intern: Nathan Arrieta MD Hep B Surf Ag Non-Reactive Normal [facility] Comment on above: Performed By: #### C MPX, CK, CALLI, CBCWD, LACTIC, MG #### [address] [address] Security Intern: Nathan Arrieta MD Hep C Ab Reactive Abnormal [facility] Comment on above: Performed By: #### C MPX, CK, CALLI, CBCWD, LACTIC, MG #### [address] [address] Security Intern: Nathan Arrieta MD Magnesiumon 04-27-2023 Magnesium [Mass/Vol] 1.9 mg/dL Normal 1.6-2.6 [facility] Comment on above: Performed By: #### C MPX, CK, CALLI, CBCWD, LACTIC, MG #### [address] [address] Security Intern: Nathan Arrieta MD PTon 04-27-2023 INR Coag (PPP) [Relative time] 1.4 {INR} Normal [facility] Comment on above: Result Comment: Therapeutic Range: Moderate Anticoagulant Intensity: INR = 2.0-3.0 High Anticoagulant Intensity: INR = 2.5-3.5 Performed By: #### C MPX, CK, CALLI, CBCWD, LACTIC, MG #### [address] [place], [place] [phone] Security Intern: Nathan Arrieta MD PT Coag (PPP) [Time] 15.1 s High 9.3-12.4 [facility] Comment on above: Performed By: #### C MPX, CK, CALLI, CBCWD, LACTIC, MG #### [address] [place] [address] Security Intern: Nathan Arrieta MD Phosphorus, Inorg.on 023 Phosphorus, Inorg. 2.7 mg/dL Normal 2.5-4.5 [facility] Comment on above: Performed By: #### C MPX, CK, CALLI, CBCWD, LACTIC, MG #### [address] [place] [address] Security Intern: Nathan Arrieta MD RPRon 04-27-2023 Reagin Ab RPR Ql (S) Non-Reactive Normal NR [facility] Comment on above: Performed By: #### C MPX, CK, CALLI, CBCWD, LACTIC, MG #### [address] [place] [address] Security Intern: Nathan Arrieta MD Resp Viral Panelon 3 Adenovirus Not detected Normal NOTDET [facility] Comment on above: Performed By: #### C MPX, CK, CALLI, CBCWD, LACTIC, MG #### [address] [place] [address] Security Intern: Nathan Arrieta MDdepenny.parapertussis Not detected Normal [facility] Comment on above: Performed By: #### C MPX, CK, CALLI, CBCWD, LACTIC, MG #### [address] [place] [address] Security Intern: Nathan Arrieta MD Bordetella pertussis Not detected Normal [facility] Comment on above: Performed By: #### C MPX, CK, CALLI, CBCWD, LACTIC, MG #### [address] [place] [address] Security Intern: Nathan Arrieta MD Chlamyd.pneumoniae Not detected Normal [facility] Comment on above: Performed By: #### C MPX, CK, CALLI, CBCWD, LACTIC, MG #### [address] [place] [address] Security Intern: Nathan Arrieta MD Coronavirus 229E Not detected Normal [facility] Comment on above: Performed By: #### C MPX, CK, CALLI, CBCWD, LACTIC, MG #### [address] [place] [address] Security Intern: Nathan Arrieta MD Coronavirus HKU1 Not detected Normal [facility] Comment on above: Performed By: #### C MPX, CK, CLALI, CBCWD, LACTIC, MG #### [address] [place] [address] Security Intern: Nathan Arrieta MD Coronavirus NL63 Not detected Normal [facility] Comment on above: Performed By: #### C MPX, CK, CALLI, CBCWD, LACTIC, MG #### [facility] [address] [place] [address] Security Intern: Nathan Arrieta MD Coronavirus OC43 Not detected Normal [facility] Comment on above: Performed By: #### C MPX, CK, CALLI, CBCWD, LACTIC, MG #### [address] [place] [address] Security Intern: Nathan Arrieta MD Human Metapneumo Not detected [facility] Comment on above: Performed By: #### C MPX, CK, CALLI, CBCWD, LACTIC, MG #### [address] [place] [address] Security Intern: Nathan Arrieta MD Influenza A Not detected [facility] Comment on above: Performed By: #### C MPX, CK, CALLI, CBCWD, LACTIC, MG #### [address] [place] [address] Security Intern: Nathan Arrieta MD Influenza B Not detected [facility] Comment on above: Performed By: #### C MPX, CK, CALLI, CBCWD, LACTIC, MG #### [address] [place] [address] Security Intern: Nathan Arrieta MD Mycoplas.pneumoniae Not detected Normal [facility] Comment on above: Result Comment: Perf ormed by multiplexed nucleic acid assay. Performed By: #### C MPX, CK, CALLI, CBCWD, LACTIC, MG #### [address] [place] [address] Security Intern: Nathan Arrieta MD Parainfluenza 1 Not detected Normal [facility] Comment on above: Performed By: #### C MPX, CK, CALLI, CBCWD, LACTIC, MG #### [address] [place] [address] Security Intern: Nathan Arrieta MD Parainfluenza 2 Not detected Normal [facility] Comment on above: Performed By: #### C MPX, CK, CALLI, CBCWD, LACTIC, MG #### [address] [place] [address] Security Intern: Nathan Arrieta MD Parainfluenza 3 Not detected Normal [facility] Comment on above: Performed By: #### C MPX, CK, CALLI, CBCWD, LACTIC, MG #### [address] [place] [address] Security Intern: Nathan Arrieta MD Parainfluenza 4 Not detected Normal [facility] Comment on above: Performed By: #### C MPX, CK, CALLI, CBCWD, LACTIC, MG #### [address] [place] [address] Security Intern: Nathan Arrieta MD Resp Syncytial Virus Not detected Normal [facility] Comment on above: Performed By: #### C MPX, CK, CALLI, CBCWD, LACTIC, MG #### [address] [place] [address] Security Intern: Nathan Arrieta MD Rhino/Enterovirus Not detected Normal [facility] Comment on above: Performed By: #### C MPX, CK, CALLI, CBCWD, LACTIC, MG #### [address] [place] [address] Security Intern: Nathan Arrieta MD SARS-CoV-2 (COVID-19) RNA DARIO+probe Ql (Unsp spec) Not detected [facility] Comment on above: Performed By: #### C MPX, CK, CALLI, CBCWD, LACTIC, MG #### [address] [place], [place] [id number] Security Intern: Nathan Arrieta MD Source: .NASOPHARYNGEAL SWAB Normal [facility] Comment on above: Performed By: #### C MPX, CK, CALLI, CBCWD, LACTIC, MG #### [address] [place] [address] Security Intern: Nathan Arrieta MD Rule Out MRSAon 04-27-2023 Rule Out MRSA Specimen Description .NARES Culture POSITIVE FOR: METHICILLIN RESISTANT STAPHYLOCOCCUS AUREUS Report Status FINAL 04/27/2023 Normal [facility] Comment on above: Performed By: #### C MPX, CK, CALLI, CBCWD, LACTIC, MG #### [address] [place] [address] Security Intern: Nathan Arrieta MD B12/Folate Panelon 3 Cobalamin (Vitamin B12) [Mass/Vol] 1995 pg/mL High 211-946 [facility] Comment on above: Performed By: #### C MPX, CK, CALLI, CBCWD, LACTIC, MG #### [address] [place] [address] Security Intern: Nathan Arrieta MD Folic Acid 19.0 ng/mL Normal 4.8-24.2 [facility] Comment on above: Performed By: #### C MPX, CK, CALLI, CBCWD, LACTIC, MG #### [address] [place], [place] [id number] Security Intern: Nathan Arrieta MD CBC with Diffon 04-26-2023 Abs. Basophil 0.05 k/uL Normal 0.00-0.20 [facility] Comment on above: Performed By: #### C MPX, CK, CALLI, CBCWD, LACTIC, MG #### [place] [address] Security Intern: Nathan Arrieta MD Abs.Imm.Granulocyte 0.05 k/uL Normal 0.00-0.58 [facility] Comment on above: Performed By: #### C MPX, CK, CALLI, CBCWD, LACTIC, MG #### [place] [address] Security Intern: Nathan Arrieta MD Abs.Neutrophil (Seg) 8.89 k/uL High 1.80-7.30 [facility] Comment on above: Performed By: #### C MPX, CK, CALLI, CBCWD, LACTIC, MG #### [place] [address] Security Intern: Nathan Arrieta MD Basophils/100 WBC (Bld) 0 % Normal 0.0-2.0 [facility] Comment on above: Performed By: #### C MPX, CK, CALLI, CBCWD, LACTIC, MG #### [place] [address] Security Intern: Nathan Arrieta MD Eosinophils (Bld) [#/Vol] 0.28 10*3/uL Normal 0.05-0.50 [facility] Comment on above: Performed By: #### C MPX, CK, CALLI, CBCWD, LACTIC, MG #### [place] [address] Security Intern: Nathan Arrieta MD Eosinophils/100 WBC (Bld) 2 % Normal 0-6 [facility] Comment on above: Performed By: #### C MPX, CK, CALLI, CBCWD, LACTIC, MG #### [address] [place] [address] Security Intern: Nathan Arrieta MD Erythrocyte distribution width (RBC) [Ratio] 13.5 % Normal 11.5-15.0 [facility] Comment on above: Performed By: #### C MPX, CK, CALLI, CBCWD, LACTIC, MG #### [place] [address] Security Intern: Nathan Arrieta MD Hematocrit (Bld) [Volume fraction] 33.6 % Low 34.0-48.0 [facility] Comment on above: Performed By: #### C MPX, CK, CALLI, CBCWD, LACTIC, MG #### [address] [place] [address] Security Intern: Nathan Arrieta MD Hemoglobin (Bld) [Mass/Vol] 10.6 g/dL Low 11.5-15.5 [facility] Comment on above: Performed By: #### C MPX, CK, CALLI, CBCWD, LACTIC, MG #### [address] [place] [address] Security Intern: Nathan Arrieta MD Immature granulocytes/100 WBC (Bld) 0 % Normal 0.0-5.0 [facility] Comment on above: Performed By: #### C MPX, CK, CALLI, CBCWD, LACTIC, MG #### [address] [place] [address] Security Intern: Nathan Arrieta MD Lymphocytes (Bld) [#/Vol] 2.77 10*3/uL Normal 1.50-4.00 [facility] Comment on above: Performed By: #### C MPX, CK, CALLI, CBCWD, LACTIC, MG #### [address] [place] [address] Security Intern: Nathan Arrieta MD Lymphocytes/100 WBC (Bld) 21 % Normal 20.0-42.0 [facility] Comment on above: Performed By: #### C MPX, CK, CALLI, CBCWD, LACTIC, MG #### [address] [place] [address] Security Intern: Nathan Arrieta MD MCH (RBC) [Entitic mass] 26.8 pg Normal 26.0-35.0 [facility] Comment on above: Performed By: #### C MPX, CK, CALLI, CBCWD, LACTIC, MG #### [place] [address] Security Intern: Nathan Arrieta MD MCHC (RBC) [Mass/Vol] 31.5 g/dL Low 32.0-34.5 [facility] Comment on above: Performed By: #### C MPX, CK, CALLI, CBCWD, LACTIC, MG #### [address] [place] [address] Security Intern: Nathan Arrieta MD MCV (RBC) [Entitic vol] 84.8 fL Normal 80.0-99.9 [facility] Comment on above: Performed By: #### C MPX, CK, CALLI, CBCWD, LACTIC, MG #### [address] [place] [address] Security Intern: Nathan Arrieta MD Monocytes (Bld) [#/Vol] 0.99 10*3/uL High 0.10-0.95 [facility] Comment on above: Performed By: #### C MPX, CK, CALLI, CBCWD, LACTIC, MG #### [address] [place] [address] Security Intern: Nathan Arrieta MD Monocytes/100 WBC (Bld) 8 % Normal 2.0-12.0 [facility] Comment on above: Performed By: #### C MPX, CK, CALLI, CBCWD, LACTIC, MG #### [address] [place] [address] Security Intern: Nathan Arrieta MD Neutrophil (Seg) 68 % Normal 43.0-80.0 [facility] Comment on above: Performed By: #### C MPX, CK, CALLI, CBCWD, LACTIC, MG #### [place] [address] Security Intern: Nathan Arreita MD Platelet mean volume (Bld) [Entitic vol] 10.4 fL Normal 7.0-12.0 [facility] Comment on above: Performed By: #### C MPX, CK, CALLI, CBCWD, LACTIC, MG #### [address] [place] [address] Security Intern: Nathan Arrieta MD Platelets (Bld) [#/Vol] 314 10*3/uL Normal 130-450 [facility] Comment on above: Performed By: #### C MPX, CK, CALLI, CBCWD, LACTIC, MG #### [address] [place] [address] Security Intern: Nathan Arrieta MD RBC (Bld) [#/Vol] 3.96 10*6/uL Normal 3.50-5.50 [facility] Comment on above: Performed By: #### C MPX, CK, CALLI, CBCWD, LACTIC, MG #### [place] [id number] Security Intern: Nathan Arrieta MD WBC (Bld) [#/Vol] 13.0 10*3/uL High 4.5-11.5 [facility] Comment on above: Performed By: #### C MPX, CK, CALLI, CBCWD, LACTIC, MG #### [facility] [address] [place] [address] Security Intern: Nathan Arrieta MD CT HEAD WO CONTRASTon [...] shift. No abnormal extra-axial fluid collection. The danielle-white differentiation is maintained without evidence of an [...] Jarocho Benton MD 04/26/23 Final result Normal [facility] Comment on above: Order Comment: Has a code stroke or stroke alert been called?->NoReason for exam:->Evaluate intracranial abnormalityDecision Support Exception - unselect if not a suspected or confirmed emergency medical condition->Emergency Medical Condition ([place])What reading provider will be dictating this exam?->CRC Comp Metabolic Pr/rfx MGon 1 06-27-2022 Albumin [Mass/Vol] 3.4 g/dL Low 3.5-5.2 [facility] Comment on above: Performed By: #### C MPX, CK, CALLI, CBCWD, LACTIC, MG #### [place] [address] [address] [facility] [place] [address] Security Intern: Nathan Arrieta MD Alkaline Phos 57 U/L Normal 35-104 [facility] Comment on above: Performed By: #### C MPX, CK, CALLI, CBCWD, LACTIC, MG #### [address] [place] [address] Security Intern: Nathan Arrieta MD ALT [Catalytic activity/Vol] 34 U/L High 0-32 [facility] Comment on above: Performed By: #### C MPX, CK, CALLI, CBCWD, LACTIC, MG #### [address] [place] [address] Security Intern: Nathan Arrieta MD Anion gap [Moles/Vol] 17 mmol/L High 7-16 [facility] Comment on above: Performed By: #### C MPX, CK, CALLI, CBCWD, LACTIC, MG #### [address] [place] [address] Security Intern: Nathan Arrieta MD AST [Catalytic activity/Vol] 54 U/L High 0-31 [facility] Comment on above: Performed By: #### C MPX, CK, CALLI, CBCWD, LACTIC, MG #### [address] [place] [address] Security Intern: Nathan Arrieta MD Bilirubin [Mass/Vol] 0.3 mg/dL Normal 0.0-1.2 [facility] Comment on above: Performed By: #### C MPX, CK, CALLI, CBCWD, LACTIC, MG #### [place] [address] [facility] [facility] [place] [address] Security Intern: Nathan Arrieta MD Calcium [Mass/Vol] 8.1 mg/dL Low 8.6-10.2 [facility] Comment on above: Performed By: #### C MPX, CK, CALLI, CBCWD, LACTIC, MG #### [place] [address] [address] [employer] [place] [address] Security Intern: Nathan Arrieta MD Chloride [Moles/Vol] 108 mmol/L High 98-107 [facility] Comment on above: Performed By: #### C MPX, CK, CALLI, CBCWD, LACTIC, MG #### [address] [place] [address] Security Intern: Nathan Arrieta MD CO2 [Moles/Vol] 18 mmol/L Low 22-29 [facility] Comment on above: Performed By: #### C MPX, CK, CALLI, CBCWD, LACTIC, MG #### [address] [place] [address] Security Intern: Nathan Arrieta MD Creatinine [Mass/Vol] 0.6 mg/dL Normal 0.50-1.00 [facility] Comment on above: Performed By: #### C MPX, CK, CALLI, CBCWD, LACTIC, MG #### [address] [place] [address] Security Intern: Nathan Arrieta MD GFR/1.73 sq M.predicted among non-blacks MDRD (S/P/Bld) [Vol rate/Area] mL/min/{1.73_m2} Normal >60 [facility] Comment on above: Result Comment: These [...] MPX, CK, CALLI, CBCWD, LACTIC, MG #### [address] [address] Security Intern: Nathan Arrieta MD Glucose [Mass/Vol] 72 mg/dL Low 74-99 [facility] Comment on above: Performed By: #### C MPX, CK, CALLI, CBCWD, LACTIC, MG #### [address] [address] Security Intern: Nathan Arrieta MD Potassium [Moles/Vol] 3.1 mmol/L Low 3.5-5.0 [facility] Comment on above: Performed By: #### C MPX, CK, CALLI, CBCWD, LACTIC, MG #### [place] [address] Security Intern: Nathan Arrieta MD Protein [Mass/Vol] 6.2 g/dL Low 6.4-8.3 [facility] Comment on above: Performed By: #### C MPX, CK, CALLI, CBCWD, LACTIC, MG #### [address] [address] Security Intern: Nathan Arrieta MD Sodium [Moles/Vol] 143 mmol/L Normal 132-146 [facility] Comment on above: Performed By: #### C MPX, CK, CALLI, CBCWD, LACTIC, MG #### [address] [address] Security Intern: Nathan Arrieta MD Urea nitrogen [Mass/Vol] 7 mg/dL Normal 6-20 [facility] Comment on above: Performed By: #### C MPX, CK, CALLI, CBCWD, LACTIC, MG #### [place] [address] Security Intern: Nathan Arrieta MD Creatine Kinaseon 04-26-2023 CK [Catalytic activity/Vol] 1372 U/L High 20-180 [facility] Comment on above: Performed By: #### C MPX, CK, CALLI, CBCWD, LACTIC, MG #### [place] [address] Security Intern: Nathan Arrieta MD Drug Scr, Abuse, Uron 2022 Amphetamine(s),Ur Positive Abnormal NEG [facility] Comment on above: Result Comment: Cuto ff: 1000 ng/mL High concentrations of ephedrine/pseudoephedrine or phenylpropanolamine may cause false positive results for amphetamine. Therefore, confirmatory testing for amphetamine should be considered if clinically indicated. Performed By: #### C MPX, CK, CALLI, CBCWD, LACTIC, MG #### [place] [address] Security Intern: Nathan Arrieta MD Barbiturate(s),Ur Negative Normal NEG [facility] Comment on above: Result Comment: Cuto ff: 200 ng/ml Performed By: #### C MPX, CK, CALLI, CBCWD, LACTIC, MG #### [place] [address] Security Intern: Nathan Arrieta MD Benzodiazepine(s) Positive Abnormal NEG [facility] Comment on above: Result Comment: Cuto ff: 200 ng/ml Performed By: #### C MPX, CK, CALLI, CBCWD, LACTIC, MG #### [place] [address] Security Intern: Nathan Arrieta MD Buprenorphrine, Ur Negative Normal NEG [facility] Comment on above: Result Comment: Cuto ff: 5 ng/ml Performed By: #### C MPX, CK, CALLI, CBCWD, LACTIC, MG #### [place] [address] [place] [address] Security Intern: Nathan Arrieta MD Cannabinoid(s),Ur Positive Abnormal NEG [facility] Comment on above: Result Comment: Cuto ff: 50 ng/ml Performed By: #### C MPX, CK, CALLI, CBCWD, LACTIC, MG #### [place] [address] [place] [address] Security Intern: Nathan Arrieta MD Cocaine Metabolite Positive Abnormal NEG [facility] Comment on above: Result Comment: Cuto ff: 300 ng/ml Performed By: #### C MPX, CK, CALLI, CBCWD, LACTIC, MG #### [address] [place] [address] Security Intern: Nathan Arrieta MD Fentanyl, Urine Negative Normal NEG [facility] Comment on above: Result Comment: Cuto ff: 1.0 ng/ml Performed By: #### C MPX, CK, CALLI, CBCWD, LACTIC, MG #### [address] [place] [address] Security Intern: Nathan Arrieta MD Interpretive Info These drug screen results are for medical purposes only and should not be Normal [facility] Comment on above: Result Comment: cons idered definitive or confirmed. The drug methodology concentration value must be greater than or equal to the cutoff to be reported as positive. Confirmtory testing orders and/or interpretive sceening questions can be directed to toxicology at [phone]. The absence of expected drug(s) and/or metabolite(s) may be due to inappropriate timing of specimen collection relative to drug administration, poor drug absorption, diluted/adulterated urine, or limitations of screening methodology. Performed By: #### C MPX, CK, CALLI, CBCWD, LACTIC, MG #### [address] [place] [address] Security Intern: Nathan Arrieta MD Methadone Ql (U) Negative Normal NEG [facility] Comment on above: Result Comment: Cuto ff: 300 ng/ml Performed By: #### C MPX, CK, CALLI, CBCWD, LACTIC, MG #### [address] [place] [address] Security Intern: Nathan Arrieta MD Opiate(s), Ur Negative Normal NEG [facility] Comment on above: Result Comment: Cuto ff: 300 ng/ml Note: The Opiate screen is not intended to detect Oxycodone. Performed By: #### C MPX, CK, CALLI, CBCWD, LACTIC, MG #### [place] [address] [place] [address] Security Intern: Nathan Arrieta MD Oxycodone, Urine Negative Normal NEG [facility] Comment on above: Result Comment: Cuto ff: 100 ng/ml Performed By: #### C MPX, CK, CALLI, CBCWD, LACTIC, MG #### [address] [place] [address] Security Intern: Nathan Arrieta MD Phencyclidine, Ur Negative Normal NEG [facility] Comment on above: Result Comment: Cuto ff: 25 ng/ml Performed By: #### C MPX, CK, CALLI, CBCWD, LACTIC, MG #### [address] [place] [address] Security Intern: Nathan Arrieta MD Glucose,Whole Bloodon 2022 Glucose [Mass/Vol] 83 mg/dL Normal 74-99 [facility] Glucose [Mass/Vol] 75 mg/dL Normal 74-99 [facility] Glucose [Mass/Vol] 76 mg/dL Normal 74-99 [facility] Glucose [Mass/Vol] 97 mg/dL Normal 74-99 [facility] Glucose [Mass/Vol] 139 mg/dL High 74-99 [facility] Glucose [Mass/Vol] 63 mg/dL Low 74-99 [facility] HCG Screen, Urineon 04-26-20 23 Beta HCG ( test) Ql (U) Negative Normal NEG [facility] Comment on above: Result Comment: Test results should always be evaluated with all available clinical data. If a urine sample is too dilute, it may not contain a signs sales representative urinary hCG concentration. If a negative result is obtained and is still suspected, a first morning sample should be obtained and tested. Performed By: #### H CGUB #### [address] [place] [address] Security Intern: Nathan Arrieta MD Lactic Acidon 04-26-2023 Lactate [Moles/Vol] 0.8 mmol/L Normal 0.5-2.2 [facility] Comment on above: Performed By: #### C MPX, CK, CALLI, CBCWD, LACTIC, MG #### [address] [place] [address] Security Intern: Nathan Arrieta MD Magnesiumon 04-26-2023 Magnesium [Mass/Vol] 2.2 mg/dL Normal 1.6-2.6 [facility] Comment on above: Performed By: #### C MPX, CK, CALLI, CBCWD, LACTIC, MG #### [address] [place] [address] Security Intern: Nathan Arrieta MD Osmolalityon 04-26-2023 Osmolality [Osmolality] 290 mosm/kg Normal 285-310 [facility] Comment on above: Performed By: #### C MPX, CK, CALLI, CBCWD, LACTIC, MG #### [address] [place] [address] Security Intern: Nathan Arrieta MD Phosphorus, Inorg.on 023 Phosphorus, Inorg. 3.1 mg/dL Normal 2.5-4.5 [facility] Comment on above: Performed By: #### C MPX, CK, CALLI, CBCWD, LACTIC, MG #### [address] [address] Security Intern: Nathan Arrieta MD Procalcitoninon 04-26-2023 Procalcitonin 0.05 ng/mL Normal 0.00-0.08 [facility] Comment on above: Performed By: #### C MPX, CK, CALLI, CBCWD, LACTIC, MG #### [address] [address] Security Intern: Nathan Arrieta MD Thyroid Stim. Horm.on 2022 Thyroid Stim. Horm. 0.76 uIU/mL Normal 0.27-4.20 [facility] Comment on above: Performed By: #### C MPX, CK, CALLI, CBCWD, LACTIC, MG #### [place] [address] Security Intern: Nathan Arrieta MD Thyroxine, Freeon 04-26-2023 Thyroxine, Free 1.6 ng/dL Normal 0.9-1.7 [facility] Comment on above: Performed By: #### C MPX, CK, CALLI, CBCWD, LACTIC, MG #### [place] [address] Security Intern: Nathan Arrieta MD XR CHEST PORTABLEon 04-26-20 [...] Jarocho Benton MD 04/25/23 Final result Normal [facility] Comment on above: Order Comment: Reaso n for exam:->intubatedWhat reading provider will be dictating this exam?->CRC CBC with Diffon 04-25-2023 Abs. Basophil 0 k/uL Normal 0.00-0.20 [facility] Comment on above: Performed By: #### C MPX, CK, CALLI, CBCWD, LACTIC, MG #### [place] [address] Security Intern: Nathan Arrieta MD Abs.Neutrophil (Seg) 8.89 k/uL High 1.80-7.30 [facility] Comment on above: Performed By: #### C MPX, CK, CALLI, CBCWD, LACTIC, MG #### [address] [place] [address] Security Intern: Nathan Arrieta MD Basophils/100 WBC (Bld) 0 % Normal 0.0-2.0 [facility] Comment on above: Performed By: #### C MPX, CK, CALLI, CBCWD, LACTIC, MG #### [address] [place] [address] Security Intern: Nathan Arrieta MD Eosinophils (Bld) [#/Vol] 0.82 10*3/uL High 0.05-0.50 [facility] Comment on above: Performed By: #### C MPX, CK, CALLI, CBCWD, LACTIC, MG #### [address] [address] Security Intern: Nathan Arrieta MD Eosinophils/100 WBC (Bld) 5 % Normal 0-6 [facility] Comment on above: Performed By: #### C MPX, CK, CALLI, CBCWD, LACTIC, MG #### [address] [place] [address] Security Intern: Nathan Arrieta MD Lymphocytes (Bld) [#/Vol] 4.65 10*3/uL High 1.50-4.00 [facility] Comment on above: Performed By: #### C MPX, CK, CALLI, CBCWD, LACTIC, MG #### [address] [place] [address] Security Intern: Nathan Arrieta MD Lymphocytes/100 WBC (Bld) 30 % Normal 20.0-42.0 [facility] Comment on above: Performed By: #### C MPX, CK, CALLI, CBCWD, LACTIC, MG #### [address] [place] [address] Security Intern: Nathan Arrieta MD Monocytes (Bld) [#/Vol] 1.23 10*3/uL High 0.10-0.95 [facility] Comment on above: Performed By: #### C MPX, CK, CALLI, CBCWD, LACTIC, MG #### [address] [place] [address] Security Intern: Nathan Arrieta MD Monocytes/100 WBC (Bld) 8 % Normal 2.0-12.0 [facility] Comment on above: Performed By: #### C MPX, CK, CALLI, CBCWD, LACTIC, MG #### [address] [place] [id number] Security Intern: Nathan Arrieta MD Neutrophil (Seg) 57 % Normal 43.0-80.0 [facility] Comment on above: Performed By: #### C MPX, CK, CALLI, CBCWD, LACTIC, MG #### [address] [place] [address] Security Intern: Nathan Arrieta MD RBC morphology finding Nom (Bld) 1+ Normal [facility] Comment on above: Result Comment: ANNA CELLS 1+ POLYCHROMASIA Performed By: #### C MPX, CK, CALLI, CBCWD, LACTIC, MG #### [address] [place] [address] Security Intern: Nathan Arrieta MD Erythrocyte distribution width (RBC) [Ratio] 13.3 % Normal 11.5-15.0 [facility] Comment on above: Performed By: #### C MPX, CK, CALLI, CBCWD, LACTIC, MG #### [address] [place] [address] Security Intern: Nathan Arrieta MD Hematocrit (Bld) [Volume fraction] 34.9 % Normal 34.0-48.0 [facility] Comment on above: Performed By: #### C MPX, CK, CALLI, CBCWD, LACTIC, MG #### [address] [place] [address] Security Intern: Nathan Arrieta MD Hemoglobin (Bld) [Mass/Vol] 11.2 g/dL Low 11.5-15.5 [facility] Comment on above: Performed By: #### C MPX, CK, CALLI, CBCWD, LACTIC, MG #### [place] [address] Security Intern: Nathan Arrieta MD MCH (RBC) [Entitic mass] 26.5 pg Normal 26.0-35.0 [facility] Comment on above: Performed By: #### C MPX, CK, CALLI, CBCWD, LACTIC, MG #### [address] [place] [address] Security Intern: Nathan Arrieta MD MCHC (RBC) [Mass/Vol] 32.1 g/dL Normal 32.0-34.5 [facility] Comment on above: Performed By: #### C MPX, CK, CALLI, CBCWD, LACTIC, MG #### [address] [place] [address] Security Intern: Nathan Arrieta MD MCV (RBC) [Entitic vol] 82.5 fL Normal 80.0-99.9 [facility] Comment on above: Performed By: #### C MPX, CK, CALLI, CBCWD, LACTIC, MG #### [address] [place] [address] Security Intern: Nathan Arrieta MD Platelet mean volume (Bld) [Entitic vol] 10.5 fL Normal 7.0-12.0 [facility] Comment on above: Performed By: #### C MPX, CK, CALLI, CBCWD, LACTIC, MG #### [address] [place] [address] Security Intern: Nathan Arrieta MD Platelets (Bld) [#/Vol] 493 10*3/uL High 130-450 [facility] Comment on above: Performed By: #### C MPX, CK, CALLI, CBCWD, LACTIC, MG #### [address] [place] [address] Security Intern: Nathan Arrieta MD RBC (Bld) [#/Vol] 4.23 10*6/uL Normal 3.50-5.50 [facility] Comment on above: Performed By: #### C MPX, CK, CALLI, CBCWD, LACTIC, MG #### [address] [place], [place] [id number] Security Intern: Nathan Arrieta MD WBC (Bld) [#/Vol] 15.6 10*3/uL High 4.5-11.5 [facility] Comment on above: Performed By: #### C MPX, CK, CALLI, CBCWD, LACTIC, MG #### [address] [place] [address] Security Intern: Nathan Arrieta MD Comp Metabolic Profon 2022 Albumin [Mass/Vol] 4.4 g/dL Normal 3.5-5.2 [facility] Comment on above: Performed By: #### C MPX, CK, CALLI, CBCWD, LACTIC, MG #### [address] [place] [address] Security Intern: Nathan Arrieta MD Alkaline Phos 66 U/L Normal 35-104 [facility] Comment on above: Performed By: #### C MPX, CK, CALLI, CBCWD, LACTIC, MG #### [address] [place] [address] Security Intern: Nathan Arrieta MD ALT [Catalytic activity/Vol] 45 U/L High 0-32 [facility] Comment on above: Performed By: #### C MPX, CK, CALLI, CBCWD, LACTIC, MG #### [address] [place] [address] Security Intern: Nathan Arrieta MD Anion gap [Moles/Vol] 19 mmol/L High 7-16 [facility] Comment on above: Performed By: #### C MPX, CK, CALLI, CBCWD, LACTIC, MG #### [address] [place] [address] Security Intern: Nathan Arrieta MD AST [Catalytic activity/Vol] 57 U/L High 0-31 [facility] Comment on above: Performed By: #### C MPX, CK, CALLI, CBCWD, LACTIC, MG #### [address] [place] [address] Security Intern: Nathan Arrieta MD Bilirubin [Mass/Vol] 0.5 mg/dL Normal 0.0-1.2 [facility] Comment on above: Performed By: #### C MPX, CK, CALLI, CBCWD, LACTIC, MG #### [address] [place] [address] Security Intern: Nathan Arrieta MD Calcium [Mass/Vol] 9.3 mg/dL Normal 8.6-10.2 [facility] Comment on above: Performed By: #### C MPX, CK, CALLI, CBCWD, LACTIC, MG #### [address] [place] [address] Security Intern: Nathan Arrieta MD Chloride [Moles/Vol] 102 mmol/L Normal 98-107 [facility] Comment on above: Performed By: #### C MPX, CK, CALLI, CBCWD, LACTIC, MG #### [address] [place] [address] Security Intern: Nathan Arrieta MD CO2 [Moles/Vol] 21 mmol/L Low 22-29 [facility] Comment on above: Performed By: #### C MPX, CK, CALLI, CBCWD, LACTIC, MG #### [address] [place] [address] Security Intern: Nathan Arrieta MD Creatinine [Mass/Vol] 0.8 mg/dL Normal 0.50-1.00 [facility] Comment on above: Performed By: #### C MPX, CK, CALLI, CBCWD, LACTIC, MG #### [place] [address] Security Intern: Nathan Arrieta MD GFR/1.73 sq M.predicted among non-blacks MDRD (S/P/Bld) [Vol rate/Area] mL/min/{1.73_m2} Normal >60 [facility] Comment on above: Result Comment: These [...] MPX, CK, CALLI, CBCWD, LACTIC, MG #### [place] [address] Security Intern: Nathan Arrieta MD Glucose [Mass/Vol] 141 mg/dL High 74-99 [facility] Comment on above: Performed By: #### C MPX, CK, CALLI, CBCWD, LACTIC, MG #### [address] [place] [address] Security Intern: Nathan Arrieta MD Potassium [Moles/Vol] 3.3 mmol/L Low 3.5-5.0 [facility] Comment on above: Performed By: #### C MPX, CK, CALLI, CBCWD, LACTIC, MG #### [address] [address] Security Intern: Nathan Arrieta MD Protein [Mass/Vol] 7.9 g/dL Normal 6.4-8.3 [facility] Comment on above: Performed By: #### C MPX, CK, CALLI, CBCWD, LACTIC, MG #### [address] [place] [address] Security Intern: Nathan Arrieta MD Sodium [Moles/Vol] 142 mmol/L Normal 132-146 [facility] Comment on above: Performed By: #### C MPX, CK, CALLI, CBCWD, LACTIC, MG #### [address] [place] [address] Security Intern: Nathan Arrieta MD Urea nitrogen [Mass/Vol] 13 mg/dL Normal 6-20 [facility] Comment on above: Performed By: #### C MPX, CK, CALLI, CBCWD, LACTIC, MG #### [address] [place] [id number] Security Intern: Nathan Arrieta MD Creatine Kinaseon 04-25-2023 CK [Catalytic activity/Vol] 866 U/L High 20-180 [facility] Comment on above: Performed By: #### C MPX, CK, CALLI, CBCWD, LACTIC, MG #### [address] [place] [address] Security Intern: Nathan Arrieta MD Glucose,Whole Bloodon 2022 Glucose [Mass/Vol] 96 mg/dL Normal 74-99 [facility] Tox Scr, Bld, EDon 3 Acetaminophen [Mass/Vol] ug/mL Low 10.0-30.0 [facility] Comment on above: Performed By: #### C MPX, CK, CALLI, CBCWD, LACTIC, MG #### [address] [place] [address] Security Intern: Nathan Arrieta MD Ethanol [Mass/Vol] mg/dL Normal <10 [facility] Comment on above: Performed By: #### C MPX, CK, CALLI, CBCWD, LACTIC, MG #### [address] [place] [address] Security Intern: Nathan Arrieta MD Salicylate <0.3 Normal 0.0-30.0 [facility] Comment on above: Performed By: #### C MPX, CK, CALLI, CBCWD, LACTIC, MG #### [address] [place] [address] Security Intern: Nathan Arrieta MD Toxic Tricyclic Sc,Bl Negative Normal NEG [facility] Comment on above: Result Comment: Cuto ff: 300 ng/ml Performed By: #### C MPX, CK, CALLI, CBCWD, LACTIC, MG #### [address] [place] [address] Security Intern: Nathan Arrieta MD Troponinon 04-25-2023 Troponin, High Sens 11 ng/L High 0-9 [facility] Comment on above: Result Comment: High Sensitivity Troponin values cannot be compared with other Troponin methodologies. Patients with high levels of Biotin oral intake (i.e >5mg/day) may have falsely decreased Troponin levels. Samples collected within 8 hours of biotin intake may require additional information for diagnosis. Performed By: #### T ROPI #### [address] [place] [address] Security Intern: Nathan Arrieta MD Troponin, High Sens 11 ng/L High 0-9 [facility] Comment on above: Result Comment: High Sensitivity Troponin values cannot be compared with other Troponin methodologies. Patients with high levels of Biotin oral intake (i.e >5mg/day) may have falsely decreased Troponin levels. Samples collected within 8 hours of biotin intake may require additional information for diagnosis. Performed By: #### C MPX, CK, CALLI, CBCWD, LACTIC, MG #### [address] [place] [id number] Security Intern: Nathan Arrieta MD XR CHEST PORTABLEon 04-25-20 [...] Etienne Nicholson MD 04/25/23 Final result Normal [facility] Comment on above: Order Comment: Reaso n for exam:->Mainic, tachycardiaWhat reading provider will be dictating this exam?->CRC Basophil percentageOrdered B y: Dr. Crisostomo on 11-04-2022 Basophil percentage TNP [facility] Comment on above: Test not performed No Panel InformationOrdered By: Dr. Crisostomo on 11-04-2022 Addendum Document Comment . [facility] Comment on above: The quantitative ran ge of this assay is 15 IU/mL to 100million IU/mL.Performed at: [address] [id number] Director: Coby De Los Santos MD, Phone: [phone] Serum or plasma hepatitis C virus RNA measurement by probe and target amplification mOrdered By: Dr. Crisostomo on 11-04-2022 HCV RNA DARIO+probe Qn Not detected . [facility] Basophil percentageOrdered B y: Dr. Fletcher on 10-27-2022 Basophil percentage 0 SEEN /hpf 0-5 [facility] Bilirubin [Mass/Vol] 0.40 mg/dL 0.20-1.00 [facility] Comment on above: For patients on eltr ombopag therapy, use of Dimension [place] TBIL is not recommended. Chloride [Moles/Vol] 107 mmol/L 98-107 [facility] Glucose [Mass/Vol] 87 mg/dL 74-106 [facility] Potassium [Moles/Vol] 3.5 mmol/L 3.5-5.1 [facility] Protein [Mass/Vol] 8.2 g/dL 6.4-8.2 [facility] Sodium [Moles/Vol] 139 mmol/L 136-145 [facility] Beta hCG serum qualOrdered B y: Dr. Fletcher on 10-27-2022 Beta HCG ( test) Ql Negative [facility] Bilirubin Test strip Ql (U)O rdered By: Dr. Fletcher on 10-27-2022 Bilirubin Ql (U) Negative Negative [facility] Ketones Test strip Ql (U)Ord ered By: Dr. Fletcher on 10-27-2022 Ketones Ql (U) 15 mg/dl Negative [facility] Laboratory - Chemistry and C hemistry - challengeOrdered By: Dr. Fletcher on 10-27-2022 CK [Catalytic activity/Vol] 1150 U/L 26-192 [facility] ALP [Catalytic activity/Vol] 62 U/L 45-117 [facility] ALT [Catalytic activity/Vol] 32 U/L 13-56 [facility] CO2 [Moles/Vol] 25.0 mmol/L 21.0-32.0 [facility] Globulin (S) [Mass/Vol] 4.0 g/dL 2.2-4.2 [facility] Urea nitrogen/Creatinine [Mass ratio] 19.1 mg/mg 10-20 [facility] Laboratory - Drug toxicology Ordered By: Dr. Fletcher on 10-27-2022 Amphetamines Ql (U) Positive <1000 ng/mL [facility] Benzodiazepines Ql (U) Negative < 200 ng/mL [facility] Cannabinoids Screen Ql (U) Negative < 50 ng/mL [facility] Cocaine Ql (U) Negative < 300 ng/mL [facility] Opiates Ql (U) Negative < 300 ng/mL [facility] Mucus LM Ql (Urine sed)Order ed By: Dr. Fletcher on 10-27-2022 Mucus Ql (Urine sed) 2+ /hpf [facility] Nitrite Test strip Ql (U)Ord ered By: Dr. Fletcher on 10-27-2022 Nitrite Ql (U) Negative Negative [facility] No Panel InformationOrdered By: Dr. Fletcher on 10-27-2022 MDMA (Ecstasy) Screen Positive < 500 ng/mL [facility] Urine Barbiturates Screen Negative < 200 ng/mL [facility] Urine Drug Screen Comment [facility] Comment on above: CONFIRMATORY TESTING FOR [...] Methadone Screen Negative < 300 ng/mL [facility] Estimated Creatinine Clearance Calc 71.82 ml/min [facility] Estimated GFR (MDRD) Amer 98 mL/min >60 [facility] Comment on above: GFR Calc Estimated GFR (MDRD) Non-Af Amer 81 mL/min >60 [facility] Comment on above: Non- GFR Calc Ethyl Alcohol Level 4.0 mg/dL [facility] Comment on above: The serum:whole bloo d ethanol ratio is approximately 1.14and varies slightly with hematocrit. Medical Alcohol reference interval and critical value innon-tolerant individuals; 50 - 100 Impairment 100 Intoxication 100 - 250 Severe Poisoning 250 - 400 Deep/possible fatal coma Protein Test strip Ql (U)Ord ered By: Dr. Fletcher on 10-27-2022 Protein Ql (U) 15 mg/dl Negative [facility] Serum or plasma albumin vanessa urement (mass/volume)Ordered By: Dr. Fletcher on 10-27-2022 Albumin [Mass/Vol] 4.2 g/dL 3.2-5.0 [facility] Serum or plasma albumin/glob ulin mass ratioOrdered By: Dr. Fletcher on 10-27-2022 Albumin/Globulin [Mass ratio] 1.0 {ratio} 0.9-2.4 [facility] Serum or plasma calcium vanessa urement (mass/volume)Ordered By: Dr. Fletcher on 10-27-2022 Calcium [Mass/Vol] 9.2 mg/dL 8.5-10.1 [facility] Serum or plasma creatinine m easurement (mass/volume)Ordered By: Dr. Fletcher on 10-27-2022 Creatinine [Mass/Vol] 0.84 mg/dL 0.55-1.02 [facility] Comment on above: The validity of the calculated GFR & GFRAA in patients over 70 years has not been determined. Clinical correlation is essential. Serum or plasma urea nitroge n measurement (mass/volume)Ordered By: Dr. Fletcher on 10-27-2022 Urea nitrogen [Mass/Vol] 16 mg/dL 7-18 [facility] Squamous epithelial cells de tection in urine sediment by light microscopyOrdered By: Dr. Fletcher on 10-27-2022 Epithelial cells.squamous LM Ql (Urine sed) 5-10 SEEN /hpf 5-10 [facility] Thin prep Papanicolaou smear with manual screeningOrdered By: Dr. Fletcher on 10-27-2022 Thin prep Papanicolaou smear with manual screening 47 U/L 15-37 [facility] Thin prep Papanicolaou smear with manual screening 7 5-15 [facility] Urine blood detectionOrdered By: Dr. Fletcher on 10-27-2022 RBC Ql (U) 150 /ul Negative [facility] RBC Ql (U) 10-25 SEEN /hpf 0-5 [facility] Urine clarityOrdered By: Dr. Fletcher on 10-27-2022 Clarity (U) Clear Clear [facility] Urine color determinationOrd ered By: Dr. Fletcher on 10-27-2022 Color (U) Yellow Yellow [facility] Urine glucose detectionOrder ed By: Dr. Fletcher on 10-27-2022 Glucose Ql (U) Normal mg/dl Normal [facility] Urine leukocyte esterase det ection by dipstickOrdered By: Dr. Fletcher on 10-27-2022 Leukocyte esterase Test strip Ql (U) Negative Negative [facility] Urine pHOrdered By: Dr. Sara osorio on 10-27-2022 pH (U) 5.0 [pH] 5.0 - 8.0 [facility] Urine phencyclidine (PCP) de tectionOrdered By: Dr. Fletcher on 10-27-2022 Phencyclidine Ql (U) Negative < 25 ng/mL [facility] Urine sediment bacteria coun t by microscopy (number/high power field)Ordered By: Dr. Fletcher on 10-27-2022 Bacteria LM.HPF (Urine sed) [#/Area] 2 /[HPF] None Seen [facility] Urine specific gravity measu rementOrdered By: Dr. Fletcher on 10-27-2022 Specific gravity (U) [Rel density] 1.030 1.002-1.030 [facility] Urobilinogen Auto test strip Ql (U)Ordered By: Dr. Fletcher on 10-27-2022 Urobilinogen Ql (U) Normal mg/dl Normal [facility] UA DIP, URINE (POC)on 2022 BILIRUBIN UA (POCT) Negative Negative [facility] CLARITY UA (POCT) Clear [facility] COLOR UA (POCT) Yellow [facility] GLUCOSE UA (POCT) Negative Negative mg/dL [facility] HEMOGLOBIN/BLOOD UA (POCT) Small Abnormal Negative [facility] KETONE UA (POCT) Negative Negative mg/dL [facility] LEUKOCYTES UA (POCT) Trace Abnormal Negative [facility] NITRITE UA (POCT) Negative Negative [facility] PH UA (POCT) 5.5 4.5 - 8.0 [facility] Protein Ql (U) Negative Negative mg/dL [facility] SPECIFIC GRAVITY UA (POCT) >=1.030 1.005 - 1.030 [facility] UROBILINOGEN UA (POCT) 0.2 E.U./dL Normal E.U./ dL [facility] Absolute lymphocyte countOrd ered By: ROBERTA BROWN on 06-09-2022 Lymphocytes Auto (Unsp spec) [#/Vol] 3.63 10*3/uL 0.83-4.51 [facility] Basophil percentageOrdered B y: ROBERTA BROWN on 06-09-2022 Basophil percentage TNP [facility] Comment on above: Test not performed Basophils/100 WBC (Bld) 0.9 % 0-1 [facility] Bilirubin [Mass/Vol] 0.40 mg/dL 0.20-1.00 [facility] Comment on above: For patients on eltr ombopag therapy, use of Dimension Levant TBIL is not recommended. Chloride [Moles/Vol] 101 mmol/L 98-107 [facility] Cholesterol [Mass/Vol] 230 mg/dL <200 [facility] Comment on above: <200 mg/dL Desirable 200-240 mg/dL Borderline >240 mg/dL High Risk Eosinophils/100 WBC (Bld) 5.9 % 0-5 [facility] Glucose [Mass/Vol] 82 mg/dL 74-106 [facility] Neutrophils (Bld) [#/Vol] 4.0 10*3/uL 2.0-7.7 [facility] Neutrophils/100 WBC (Bld) 44.3 % 47-70 [facility] Potassium [Moles/Vol] 4.4 mmol/L 3.5-5.1 [facility] Protein [Mass/Vol] 8.5 g/dL 6.4-8.2 [facility] Sodium [Moles/Vol] 135 mmol/L 136-145 [facility] Triglyceride [Mass/Vol] 88 mg/dL <199 [facility] Comment on above: The drugs N-Acetylcy steine and Metamizole may falsely depress this assay.Serum Triglycerides Reference Interval Normal <150 mg/dL Borderline high 150 - 199 mg/dL High 200 - 499 mg/dL Very High > or = 500 mg/dL WBC (Bld) [#/Vol] 9.0 10*3/uL 4.4-11.0 [facility] Blood erythrocytes count (nu mber/volume)Ordered By: ROBERTA BROWN on 06-09-2022 RBC (Bld) [#/Vol] 5.00 10*6/uL 4.2-5.4 [facility] Blood hemoglobin measurement (mass/volume)Ordered By: ROBERTA BROWN on 06-09-2022 Hemoglobin (Bld) [Mass/Vol] 12.5 g/dL 12.0-15.0 [facility] Blood lymphocytes/100 leukoc ytesOrdered By: ROBERTA BROWN on 06-09-2022 Lymphocytes/100 WBC (Bld) 40.3 % 19-41 [facility] Blood monocytes/100 leukocyt esOrdered By: ROBERTA BROWN on 06-09-2022 Monocytes/100 WBC (Bld) 8.4 % 0-10 [facility] Blood platelet mean volumeOr dered By: ROBERTA BROWN on 06-09-2022 Platelet mean volume (Bld) [Entitic vol] 10.3 fL 6.2-12.0 [facility] Determination of erythrocyte mean corpuscular volume (MCV)Ordered By: ROBERTA BROWN on 06-09-2022 MCV (RBC) [Entitic vol] 82.2 fL 81-99 [facility] Hematocrit Auto (Bld) [Volum e fraction]Ordered By: ROBERTARyann BROWN on 06-09-2022 Hematocrit (Bld) [Volume fraction] 41.1 % 37-47 [facility] Laboratory - Chemistry and C hemistry - challengeOrdered By: [facility] KEVIN on 06-09-2022 ALP [Catalytic activity/Vol] 69 U/L 45-117 [facility] ALT [Catalytic activity/Vol] 21 U/L 13-56 [facility] CO2 [Moles/Vol] 25.0 mmol/L 21.0-32.0 [facility] Cobalamin (Vitamin B12) [Mass/Vol] 749 pg/mL 211-911 [facility] Free T4 [Mass/Vol] 1.08 ng/dL 0.76-1.46 [facility] Globulin (S) [Mass/Vol] 4.5 g/dL 2.2-4.2 [facility] Urea nitrogen/Creatinine [Mass ratio] 13.8 mg/mg 10-20 [facility] Laboratory - Hematology and Cell countsOrdered By: ROBERTARyann BROWN on 06-09-2022 Erythrocyte distribution width (RBC) [Entitic vol] 39.7 fL 35.1-43.9 [facility] Erythrocyte distribution width (RBC) [Ratio] 13.3 % 11.6-14.6 [facility] Immature granulocytes/100 WBC (Bld) 0.200 % 0.0-0.9 [facility] Comment on above: IG% - Immature Granu locytes (promyelocytes, myelocytes and metamyelocytes) > 1% indicates that a LEFT SHIFT is Present. MCH (RBC) [Entitic mass] 25.0 pg 27.0-32.0 [facility] Nucleated RBC/100 WBC (Bld) [Ratio] 0 % 0-5 [facility] Auto (RBC) [Mass/Vol]Or dered By: ROBERTA BROWN on 06-09-2022 MCHC (RBC) [Mass/Vol] 30.4 g/dL 32-36 [facility] No Panel InformationOrdered By: ROBERTA BROWN on 06-09-2022 Addendum Document Comment . [facility] Comment on above: The quantitative ran ge of this assay is 15 IU/mL to 100million IU/mL.Performed at: [facility] [id number] Director: Coby De Los Santos MD, Phone: [phone] Estimated GFR (MDRD) Amer 104 mL/min >60 [facility] Comment on above: GFR Calc Estimated GFR (MDRD) Non-Af Amer 86 mL/min >60 [facility] Comment on above: Non- GFR Calc Thyroid Stimulating Hormone (TSH) 1.59 uIU/mL 0.358-3.74 [facility] Vitamin D 25-Hydroxy 18.1 ng/mL [facility] Comment on above: Vitamin D 25(OH) Sta tus Range Deficiency <20 ng/mL (50nmol/L) Insufficiency 20 - 30 ng/mL (50 - 75 nmol/L) Sufficiency 30 - 100 ng/mL (75 - 250 nmol/L) Toxicity >100 ng/mL (>250 nmol/L) Platelets bldOrdered By: ROBERT BROWN on 06-09-2022 Platelets (Bld) [#/Vol] 443 10*3/uL 150-450 [facility] Serum or plasma albumin vanessa urement (mass/volume)Ordered By: ROBERTA BROWN on 06-09-2022 Albumin [Mass/Vol] 4.0 g/dL 3.2-5.0 [facility] Serum or plasma albumin/glob ulin mass ratioOrdered By: ROBERTA BROWN on 06-09-2022 Albumin/Globulin [Mass ratio] 0.9 {ratio} 0.9-2.4 [facility] Serum or plasma calcium vanessa urement (mass/volume)Ordered By: ROBERTA BROWN on 06-09-2022 Calcium [Mass/Vol] 8.9 mg/dL 8.5-10.1 [facility] Serum or plasma cholesterol in HDL measurement (mass/volume)Ordered By: ROBERTA BROWN on 06-09-2022 Cholesterol in HDL [Mass/Vol] 86 mg/dL >40 [facility] Comment on above: The drugs N-Acetylcy steine and Metamizole may falsely depress this assay. Reference Range HDL <40 mg/dL Low HDL Cholesterol HDL >or= 60 mg/dL High HDL Cholesterol Serum or plasma cholesterol in VLDL measurement (mass/volume)Ordered By: ROBERTA BROWN on 06-09-2022 Cholesterol in VLDL [Mass/Vol] 18 mg/dL 5-40 [facility] Serum or plasma creatinine m easurement (mass/volume)Ordered By: ROBERTA BROWN on 06-09-2022 Creatinine [Mass/Vol] 0.80 mg/dL 0.55-1.02 [facility] Comment on above: The validity of the calculated GFR & GFRAA in patients over 70 years has not been determined. Clinical correlation is essential. Serum or plasma folate measu rement (mass/volume)Ordered By: ROBERTA BROWN on 06-09-2022 Folate [Mass/Vol] 17.30 ng/mL 3.1-55.4 [facility] Serum or plasma hepatitis C virus RNA measurement by probe and target amplification mOrdered By: ROBERTA BROWN on 06-09-2022 HCV RNA DARIO+probe Qn <15 IU/mL . [facility] Comment on above: HCV RNA detected Serum or plasma low density lipoprotein (LDL) cholesterol measurement (mass/volume)Ordered By: ROBERTA BROWN on 06-09-2022 Cholesterol in LDL [Mass/Vol] 126 mg/dL 0-130 [facility] Serum or plasma urea nitroge n measurement (mass/volume)Ordered By: ROBERTA BROWN on 06-09-2022 Urea nitrogen [Mass/Vol] 11 mg/dL 7-18 [facility] Thin prep Papanicolaou smear with manual screeningOrdered By: ROBERTA BROWN on 06-09-2022 Thin prep Papanicolaou smear with manual screening 19 U/L 15-37 [facility] Thin prep Papanicolaou smear with manual screening 9 5-15 [facility] Whole blood hemoglobin A1c/t otal hemoglobin ratio (mass fraction)Ordered By: ROBERTA BROWN on 06-09-2022 HbA1c (Bld) [Mass fraction] 5.6 % 3.8-5.6 [facility] Comment on above: Normal < 5.7 % Predi abetic 5.7 - 6.4 % Diabetic >or= 6.5 % Please note range changes. No Panel InformationOrdered By: Dr. Crisostomo on 04-07-2022 Miscellaneous Test See comment [facility] Comment on above: TEST RESULT LIMITSHC V [...] developed and its performance characteristics determined by [employer]. It has not been cleared or approved by the Food and Drug Administration. The FDA has determined that such clearance or approval is not necessary.For questions regarding this report please contact customer service at . TESTING PERFORMED AT [facility]. ORIGINAL REPORT ON FILE IN LAB CONTAINS ADDITIONAL TEST SITE INFORMATION. Basophil percentageOrdered B y: Dr. Crisostomo on 03-04-2022 WBC (Bld) [#/Vol] 8.7 10*3/uL 4.4-11.0 [facility] Blood erythrocytes count (nu mber/volume)Ordered By: Dr. Crisostomo on 03-04-2022 RBC (Bld) [#/Vol] 4.56 10*6/uL 4.2-5.4 [facility] Blood hemoglobin measurement (mass/volume)Ordered By: Dr. Crisostomo on 03-04-2022 Hemoglobin (Bld) [Mass/Vol] 11.6 g/dL 12.0-15.0 [facility] Blood platelet mean volumeOr dered By: Dr. Crisostomo on 03-04-2022 Platelet mean volume (Bld) [Entitic vol] 10.1 fL 6.2-12.0 [facility] Determination of erythrocyte mean corpuscular volume (MCV)Ordered By: Dr. Crisostomo on 03-04-2022 MCV (RBC) [Entitic vol] 82.7 fL 81-99 [facility] Hematocrit Auto (Bld) [Volum e fraction]Ordered By: Dr. Crisostomo on 03-04-2022 Hematocrit (Bld) [Volume fraction] 37.7 % 37-47 [facility] Laboratory - Hematology and Cell countsOrdered By: Dr. Crisostomo on 03-04-2022 Erythrocyte distribution width (RBC) [Entitic vol] 46.1 fL 35.1-43.9 [facility] Erythrocyte distribution width (RBC) [Ratio] 15.2 % 11.6-14.6 [facility] MCH (RBC) [Entitic mass] 25.4 pg 27.0-32.0 [facility] MCHC Auto (RBC) [Mass/Vol]Or dered By: Dr. Crisostomo on 03-04-2022 MCHC (RBC) [Mass/Vol] 30.8 g/dL 32-36 [facility] Platelets bldOrdered By: Dr. Crisostomo on 03-04-2022 Platelets (Bld) [#/Vol] 339 10*3/uL 150-450 [facility] Magnesiumon 09-17-2021 Magnesium [Mass/Vol] 1.5 mg/dL Low 1.6-2.3 [facility] Comment on above: Performed By: #### C K3, BMP3M, MG3 #### [facility] [address] [place], [place] Basic Metabolic Panelon 08-24 Anion gap [Moles/Vol] 3 mmol/L Normal 3-13 [facility] Comment on above: Performed By: #### C K3, BMP3M, MG3 #### [facility] [address] [place], [place] CO2 [Moles/Vol] 28 mmol/L Normal 22-30 [facility] Comment on above: Performed By: #### C K3, BMP3M, MG3 #### [facility] [address] [place], [place] Chloride [Moles/Vol] 103 mmol/L Normal 98-107 [facility] Comment on above: Performed By: #### C K3, BMP3M, MG3 #### [facility] [address] [place], [place] Potassium [Moles/Vol] 4.4 mmol/L Normal 3.5-5.1 [facility] Comment on above: Performed By: #### C K3, BMP3M, MG3 #### [place] [address] [place], [place] Sodium [Moles/Vol] 135 mmol/L Normal 135-145 [facility] Comment on above: Performed By: #### C K3, BMP3M, MG3 #### [place] [address] [place], [place] Calcium [Mass/Vol] 8.2 mg/dL Low 8.4-10.4 [facility] Comment on above: Performed By: #### C K3, BMP3M, MG3 #### [place] [address] [place], [place] Glucose [Mass/Vol] 110 mg/dL High 70-100 [facility] Comment on above: Performed By: #### C K3, BMP3M, MG3 #### [place] [address] [place], [place] Urea nitrogen [Mass/Vol] 5 mg/dL Low 9-20 [facility] Comment on above: Performed By: #### C K3, BMP3M, MG3 #### [place] [address] [place], [place] Creatinine [Mass/Vol] 0.49 mg/dL Low 0.52-1.25 [facility] Comment on above: Performed By: #### C K3, BMP3M, MG3 #### [place] [address] [place], [place] eGFR OTHER > 90.0 Normal >60 [facility] Comment on above: Result Comment: KDIG O [...] By: #### C K3, BMP3M, MG3 #### [address] GFR/1.73 sq M.predicted among blacks MDRD (S/P/Bld) [Vol rate/Area] mL/min/{1.73_m2} Normal >60 [facility] Comment on above: Performed By: #### C K3, BMP3M, MG3 #### [address] CKon 09-16-2021 CK [Catalytic activity/Vol] 161 U/L Normal 30-170 [facility] Comment on above: Performed By: #### Stevan K3, BMP3M, MG3 #### [address] CR Chest PA/LATon 09-15-2021 CR Chest PA/LAT Patient Name: GENESIS BRADFORD Diagnostic Radiology ACCESSION EXAM DATE/TIME PROCEDURE ORDERING PROVIDER [id number] 09/15/2021 15:29 EDT CR Chest PA and LAT ANATOLY ORTEZ CHRISTINA CPT code 05743 Reason For Exam (CR Chest PA and [...] Transcribed Date and Time: 09/15/2021 3:37 Normal [facility] VL Venous Duplex US Upper Ex t Bilateralon 09-15-2021 VL Venous Duplex US Upper Ext Bilateral Patient Name: GENESIS BRADFORD Ultrasound ACCESSION EXAM DATE/TIME PROCEDURE ORDERING PROVIDER [id number] 09/15/2021 16:16 EDT VL Venous Duplex US ANATOLY ORTEZ, Upper Ext Bilateral CHIKA CPT code 53403 Reason For Exam (VL Venous Duplex US Upper Ext Bilateral) bilateral hand swelling Report [facility] [place] -- Bilateral Upper Extremity Venous Duplex Report Patient Sanchez, : 1985 Study 09/15/2021 Name: Genesis Bae (36yrs) Date: Patient [id number] Age: 36 Account: [id number] ID: Gender: F Loc: 2705 BP: Ordering Physician: Chika Ortez [employer] Finishing Hand: Loree Peraza RDMS, RVT Interpreting Physician: Lambert Traylor MD -- Location: [facility] -- Indications: Bilateral UE edema, including hands. -- Preliminary result was reported to Bre Ortez CNP , by Loree Peraza RVT.[facility] , on 09/15/2021 , at 04:25 PM. [...] supine position. Images were obtained using a [employer] vascular ultrasound machine. -- Venous flow and [...] +Patent +------- (more content not included)... Normal [facility] Basic Metabolic Panelon 08-24 Anion gap [Moles/Vol] 2 mmol/L Low 3-13 [facility] Comment on above: Performed By: #### F ENTU, DRGA4, HCGUR, CUA2 #### [facility] [address] [place] [address] Calcium [Mass/Vol] 7.7 mg/dL Low 8.4-10.4 [facility] Comment on above: Performed By: #### F ENTU, DRGA4, HCGUR, CUA2 #### [facility] [address] [place], [place] CO2 [Moles/Vol] 25 mmol/L Normal 22-30 [facility] Comment on above: Performed By: #### F ENTU, DRGA4, HCGUR, CUA2 #### [facility] [address] [place], [place] Glucose [Mass/Vol] 98 mg/dL Normal 70-100 [facility] Comment on above: Performed By: #### F ENTU, DRGA4, HCGUR, CUA2 #### [facility] [address] [place], [place] Urea nitrogen [Mass/Vol] 8 mg/dL Low 9-20 [facility] Comment on above: Performed By: #### F ENTU, DRGA4, HCGUR, CUA2 #### [facility] [address] [place], [place] Creatinine [Mass/Vol] 0.51 mg/dL Low 0.52-1.25 [facility] Comment on above: Performed By: #### F ENTU, DRGA4, HCGUR, CUA2 #### [facility] [address], [place] eGFR OTHER > 90.0 Normal >60 [facility] Comment on above: Result Comment: KDIG O [...] #### F ENTU, DRGA4, HCGUR, CUA2 #### [place] [address] [place], [place] GFR/1.73 sq M.predicted among blacks MDRD (S/P/Bld) [Vol rate/Area] mL/min/{1.73_m2} Normal >60 [facility] Comment on above: Performed By: #### F ENTU, DRGA4, HCGUR, CUA2 #### [place] [address] [place], [place] Potassium [Moles/Vol] 3.1 mmol/L Low 3.5-5.1 [facility] Comment on above: Performed By: #### F ENTU, DRGA4, HCGUR, CUA2 #### [place] [address] [place], [place] Sodium [Moles/Vol] 135 mmol/L Normal 135-145 [facility] Comment on above: Performed By: #### F ENTU, DRGA4, HCGUR, CUA2 #### [place] [address] [place], [place] Chloride [Moles/Vol] 108 mmol/L High 98-107 [facility] Comment on above: Performed By: #### F ENTU, DRGA4, HCGUR, CUA2 #### [place] [address] [place], [place] Anion gap [Moles/Vol] 2 mmol/L Low 3 - 13 mmol/L [facility] Calcium [Mass/Vol] 7.7 mg/dL Low 8.4 - 10. 4 mg/dL [facility] Chloride [Moles/Vol] 108 mmol/L High 98 - 10 7 mmol/L [facility] CO2 [Moles/Vol] 25 mmol/L 22 - 30 mmol/L [facility] Creatinine [Mass/Vol] 0.51 mg/dL Low 0.52 - 1.25 mg/dL [facility] EGFR IF NonAfrican Norwegian >90.0 >60 mL/min [facility] Comment on above: KDIGO guidelines pro [...] [Mass/Vol] 98 mg/dL 70 - 100 mg/dL [facility] Potassium [Moles/Vol] 3.1 mmol/L Low 3.5 [...] - 10.7 10*3/uL [facility] Test Performed by [id number] [place] [address] LAB [facility] EKG 12 Leadon 09-14-2021 [facility] Test Date: 2021-09-13 Pat Name: GENESIS BRADFORD Department: 1AER Room: [facility] Gender: F A P Supervisor: HUAN : 1985 Requested By: JOÃO STACY Order Number: [id number] Aline MD: Madelin Calle Measurements Intervals [place] Rate: 124 P: 77 LA: 138 QRS: 81 QRSD: 74 T: 3 QT: 304 QTc: 439 Interpretive Statements Sinus tachycardia Left atrial enlargement Borderline T wave abnormalities Electronically Signed On 09-14-2021 5:34:27 EDT by Madelin Calle [facility] Madelin Calle MD - 09/14/2021 [facility] Test Date: 2021-09-13 Pat Name: GENESIS BRADFORD Department: [facility] Room: 1740 Gender: F A P Supervisor: HUAN : 1985 Requested By: JOÃO STACY Order Number: [id number] Reading MD: Madelin Calle Measurements Intervals [place] Rate: 124 P: 77 LA: 138 QRS: 81 QRSD: 74 T: 3 QT: 304 QTc: 439 Interpretive Statements Sinus tachycardia Left atrial enlargement Borderline T wave abnormalities Electronically Signed On 09-14-2021 5:34:27 EDT by Madelin Calle [facility] Work Phone: EKG 12 LeadOrdered By: Best Calle on 09-14-2021 [employer] Work Phone: Hemogram w/ [employer] 09-14 Abs Baso Cnt 0.0 10*3/uL Normal 0.0-0.2 [facility] Comment on above: Performed By: #### F ENTU, DRGA4, HCGUR, CUA2 #### [facility] [place] [address] [place], [place] Abs Neutrophile Cnt 5.1 10*3/uL Normal 1.8-7.0 [facility] Comment on above: Performed By: #### F ENTU, DRGA4, HCGUR, CUA2 #### [facility] [address], [place] Basophils/100 WBC (Bld) 0.5 % Normal 0.0-2.0 [facility] Comment on above: Performed By: #### F ENTU, DRGA4, HCGUR, CUA2 #### [facility] [address] [place], [place] Eosinophils (Bld) [#/Vol] 0.3 10*3/uL Normal 0.0-0.5 [facility] Comment on above: Performed By: #### F ENTU, DRGA4, HCGUR, CUA2 #### [facility] [address] [place], [place] Eosinophils/100 WBC (Bld) 3.6 % Normal 1.0-6.0 [facility] Comment on above: Performed By: #### F ENTU, DRGA4, HCGUR, CUA2 #### [place] [address] [place], [place] Erythrocyte distribution width (RBC) [Ratio] 15.3 % High 11.5-14.5 [facility] Comment on above: Performed By: #### F ENTU, DRGA4, HCGUR, CUA2 #### [place] [address] [place], [place] Granulocytes/100 WBC (Bld) 62.1 % Normal 40.0-80.0 [facility] Comment on above: Performed By: #### F ENTU, DRGA4, HCGUR, CUA2 #### [place] [address] [place], [place] Hematocrit (Bld) [Volume fraction] 28.9 % Low 35.0-47.0 [facility] Comment on above: Performed By: #### F ENTU, DRGA4, HCGUR, CUA2 #### [place] [address] [place], [place] Hemoglobin (Bld) [Mass/Vol] 9.5 g/dL Low 11.7-16.0 [facility] Comment on above: Performed By: #### F ENTU, DRGA4, HCGUR, CUA2 #### [place] [address] [place], [place] Lymphocytes (Bld) [#/Vol] 1.8 10*3/uL Normal 1.0-4.3 [facility] Comment on above: Performed By: #### F ENTU, DRGA4, HCGUR, CUA2 #### [place] [address] [place], [place] Lymphocytes/100 WBC (Bld) 21.7 % Normal 20.0-40.0 [facility] Comment on above: Performed By: #### F ENTU, DRGA4, HCGUR, CUA2 #### [address] [place], [place] MCH (RBC) [Entitic mass] 26.7 pg Normal 26.0-34.0 [facility] Comment on above: Performed By: #### F ENTU, DRGA4, HCGUR, CUA2 #### [facility] [address], [place] MCHC 32.8 % Normal 32.0-36.0 [facility] Comment on above: Performed By: #### F ENTU, DRGA4, HCGUR, CUA2 #### [facility] [address], [place] MCV (RBC) [Entitic vol] 81.4 fL Normal 79.0-98.0 [facility] Comment on above: Performed By: #### F ENTU, DRGA4, HCGUR, CUA2 #### [address] [place], [place] Monocytes (Bld) [#/Vol] 1.0 10*3/uL High 0.0-0.8 [facility] Comment on above: Performed By: #### F ENTU, DRGA4, HCGUR, CUA2 #### [address] [place], [place] Monocytes/100 WBC (Bld) 12.1 % High 2.0-10.0 [facility] Comment on above: Performed By: #### F ENTU, DRGA4, HCGUR, CUA2 #### [address] [place], [place] Platelet mean volume (Bld) [Entitic vol] 8.4 fL Normal 7.4-10.4 [facility] Comment on above: Performed By: #### F ENTU, DRGA4, HCGUR, CUA2 #### [address] [place], [place] Platelets (Bld) [#/Vol] 257 10*3/uL Normal 140-440 [facility] Comment on above: Performed By: #### F ENTU, DRGA4, HCGUR, CUA2 #### [address] [place], [place] RBC (Bld) [#/Vol] 3.55 10*6/uL Low 3.80-5.20 [facility] Comment on above: Performed By: #### F ENTU, DRGA4, HCGUR, CUA2 #### [address] [place], [place] WBC (Bld) [#/Vol] 8.3 10*3/uL Normal 3.6-10.7 [facility] Comment on above: Performed By: #### F ENTU, DRGA4, HCGUR, CUA2 #### [address] [place], [place] Hepatic Functionon 2 ALP [Catalytic activity/Vol] 55 U/L Normal 38-126 [facility] Comment on above: Performed By: #### F ENTU, DRGA4, HCGUR, CUA2 #### [address] [place], [place] ALT [Catalytic activity/Vol] 66 U/L High 0-34 [facility] Comment on above: Result Comment: The ALT test is performed by an updated assay method. Please note that the reference intervals have been changed and are now sex specific. Performed By: #### F ENTU, DRGA4, HCGUR, CUA2 #### [address] [place], [place] AST [Catalytic activity/Vol] 113 U/L High 15-46 [facility] Comment on above: Performed By: #### F ENTU, DRGA4, HCGUR, CUA2 #### [address] [place], [place] Bilirubin [Mass/Vol] 0.5 mg/dL Normal 0.2-1.3 [facility] Comment on above: Performed By: #### F ENTU, DRGA4, HCGUR, CUA2 #### [address] [place], [place] Protein [Mass/Vol] 5.6 g/dL Low 6.3-8.2 [facility] Comment on above: Performed By: #### F ENTU, DRGA4, HCGUR, CUA2 #### [address] [place], [place] Bilirubin.indirect [Mass/Vol] 0.0 mg/dL Normal 0.0-0.3 [facility] Comment on above: Performed By: #### F ENTU, DRGA4, HCGUR, CUA2 #### [address] [place], [place] Albumin [Mass/Vol] 2.7 g/dL Low 3.5-5.0 [facility] Comment on above: Performed By: #### F ENTU, DRGA4, HCGUR, CUA2 #### [address] [place], [place] Hepatic function panelon Albumin [Mass/Vol] 2.7 g/dL Low 3.5 - 5.0 g/dL [facility] ALP (Bld) [Catalytic activity/Vol] 55 U/L 38 [...] 0.5 mg/dL 0.2 - 1 .3 mg/dL [facility] Bilirubin.indirect [Mass/Vol] 0.0 mg/dL 0.0 - 0.3 mg/dL [facility] Free PSA/Total PSA [Mass fraction] 5.6 g/dL Low 6.3 - 8.2 g/dL [facility] Magnesiumon 09-14-2021 Magnesium [Mass/Vol] 1.4 mg/dL Low 1.6-2.3 [facility] Comment on above: Performed By: #### F ENTU, DRGA4, HCGUR, CUA2 #### [address] Interpretation and review of laboratory results Abnormal [facility] Magnesium [Mass/Vol] 1.4 mg/dL Low 1.6 - 2 .3 mg/dL [facility] Test Performed by [facility], [address] [place] [id number] [facility] No Panel Informationon 09-14 Interpretation and review of laboratory results Abnormal [facility] Test Performed by [facility], [address] [place] [id number] [facility] Add On Lab Teston 09-13-2021 Add On Accepted [facility] Comment on above: Specimen available & acceptable for analysis. Test Performed by [facility], [facility] [place] [address] [facility] Add on test from HISon 09-13 Add on test from HIS Accepted Normal [facility] Comment on above: Result Comment: Spec imen available & acceptable for analysis. Performed By: #### F ENTU, DRGA4, HCGUR, CUA2 #### [address] Basic Metabolic Panelon 08-24 Calcium [Mass/Vol] 9.4 mg/dL Normal 8.4-10.4 [facility] Comment on above: Performed By: #### E TOH4, BMP3, LFT3, CK3, HEMDF #### [address] Glucose [Mass/Vol] 95 mg/dL Normal 70-100 [facility] Comment on above: Performed By: #### E TOH4, BMP3, LFT3, CK3, HEMDF #### [address] Anion gap [Moles/Vol] 12 mmol/L Normal 3-13 [facility] Comment on above: Performed By: #### E TOH4, BMP3, LFT3, CK3, HEMDF #### [address] CO2 [Moles/Vol] 22 mmol/L Normal 22-30 [facility] Comment on above: Performed By: #### E TOH4, BMP3, LFT3, CK3, HEMDF #### [address] Creatinine [Mass/Vol] 0.87 mg/dL Normal 0.52-1.25 [facility] Comment on above: Performed By: #### E TOH4, BMP3, LFT3, CK3, HEMDF #### [facility] [address] [place] [address] GFR/1.73 sq M.predicted among blacks MDRD (S/P/Bld) [Vol rate/Area] mL/min/{1.73_m2} Normal >60 [facility] Comment on above: Performed By: #### E TOH4, BMP3, LFT3, CK3, HEMDF #### [facility] [address] [place] [address] GFR/1.73 sq M.predicted among non-blacks MDRD (S/P/Bld) [Vol rate/Area] 85.0 mL/min/{1.73_m2} Normal >60 [facility] Comment on above: Result Comment: KDIG O [...] E TOH4, BMP3, LFT3, CK3, HEMDF #### [facility] [address] [place] [address] Urea nitrogen [Mass/Vol] 26 mg/dL High 9-20 [facility] Comment on above: Performed By: #### E TOH4, BMP3, LFT3, CK3, HEMDF #### [facility] [address] [place] [address] Chloride [Moles/Vol] 97 mmol/L Low 98-107 [facility] Comment on above: Performed By: #### E TOH4, BMP3, LFT3, CK3, HEMDF #### [address] [place], [place] Potassium [Moles/Vol] 3.3 mmol/L Low 3.5-5.1 [facility] Comment on above: Performed By: #### E TOH4, BMP3, LFT3, CK3, HEMDF #### [address] Sodium [Moles/Vol] 131 mmol/L Low 135-145 [facility] Comment on above: Performed By: #### E TOH4, BMP3, LFT3, CK3, HEMDF #### [address] Anion gap [Moles/Vol] 12 mmol/L 3 - 13 mmol/L [facility] Calcium [Mass/Vol] 9.4 mg/dL 8.4 - 10. 4 mg/dL [facility] Chloride [Moles/Vol] 97 mmol/L Low 98 - 10 7 mmol/L [facility] CO2 [Moles/Vol] 22 mmol/L 22 - 30 mmol/L [facility] Creatinine [Mass/Vol] 0.87 mg/dL 0.52 - 1.25 mg/dL [facility] EGFR IF NonAfrican Norwegian 85.0 mL/min >60 [facility] Comment on above: KDIGO guidelines pro [...] [Mass/Vol] 95 mg/dL 70 - 100 mg/dL [facility] Potassium [Moles/Vol] 3.3 mmol/L Low 3.5 [...] - 10.7 10*3/uL [facility] Test Performed by [address] [facility] CKon 09-13-2021 CK [Catalytic activity/Vol] 1414 U/L High 30-170 [facility] Comment on above: Performed By: #### F ENTU, DRGA4, HCGUR, CUA2 #### [address] CK [Catalytic activity/Vol] 1414 U/L High 30 - 170 U/L [facility] Interpretation and review of laboratory results Abnormal [facility] Test Performed by [facility], [address] [place] [address] LAB [facility] CK [Catalytic activity/Vol] 2336 U/L High 30-170 [facility] Comment on above: Performed By: #### F ENTU, DRGA4, HCGUR, CUA2 #### [address] Interpretation and review of laboratory results Abnormal [facility] Test Performed by [address] [facility] CK [Catalytic activity/Vol] 2648 U/L High 30-170 [facility] Comment on above: Performed By: #### C K3 #### [address] CK [Catalytic activity/Vol] 2648 U/L High 30 - 170 U/L [facility] Interpretation and review of laboratory results Abnormal [facility] Test Performed by [facility], [address] [place] [id number] [place] [address] - [facility] CK [Catalytic activity/Vol] 3545 U/L High 30-170 [facility] Comment on above: Performed By: #### F ENTU, DRGA4, HCGUR, CUA2 #### [address] [place], [place] CK [Catalytic activity/Vol] 3545 U/L High 30 - 170 U/L [facility] Interpretation and review of laboratory results Abnormal [facility] Test Performed by [facility], [address] [place] [address] LAB [facility] CK [Catalytic activity/Vol] 5725 U/L High 30-170 [facility] Comment on above: Performed By: #### F ENTU, DRGA4, HCGUR, CUA2 #### [address] [place], [place] CK [Catalytic activity/Vol] 5725 U/L High 30 - 170 U/L [facility] Interpretation and review of laboratory results Abnormal [facility] Test Performed by [facility], [address] [place] [address] - [facility] Complete Urinalysison 2021 Appearance (U) Clear Normal Clear [facility] Comment on above: Result Comment: . Performed By: #### F ENTU, DRGA4, HCGUR, CUA2 #### [address] [place], [place] Bacteria LM.HPF (Urine sed) [#/Area] Negative Normal Negative [facility] Comment on above: Result Comment: . Performed By: #### F ENTU, DRGA4, HCGUR, CUA2 #### [address] [place], [place] Bilirubin,Urine Negative Normal Negative [facility] Comment on above: Result Comment: . Performed By: #### F ENTU, DRGA4, HCGUR, CUA2 #### [address] [place], [place] Cast, Hyaline Negative Normal Negative [facility] Comment on above: Result Comment: . Performed By: #### F ENTU, DRGA4, HCGUR, CUA2 #### [facility] [address], [place] Color (U) Yellow Normal Lt. Yellow [facility] Comment on above: Result Comment: . Performed By: #### F ENTU, DRGA4, HCGUR, CUA2 #### [facility] [address] [place], [place] Glucose Ql (U) Normal Normal Normal (<70) [facility] Comment on above: Result Comment: . Performed By: #### F ENTU, DRGA4, HCGUR, CUA2 #### [address] [place], [place] Ketone,Urine 80 mg/dL Abnormal Negative [facility] Comment on above: Result Comment: . Performed By: #### F ENTU, DRGA4, HCGUR, CUA2 #### [address] [place], [place] Leukocytes,Urine Negative Normal Negative [facility] Comment on above: Result Comment: . Performed By: #### F ENTU, DRGA4, HCGUR, CUA2 #### [address] [place], [place] Nitrites,Urine Negative Normal Negative [facility] Comment on above: Result Comment: . Performed By: #### F ENTU, DRGA4, HCGUR, CUA2 #### [address] [place], [place] Occult Blood,Urine Negative Normal Negative [facility] Comment on above: Result Comment: . Performed By: #### F ENTU, DRGA4, HCGUR, CUA2 #### [address] [place], [place] pH,Urine 5.5 Normal 5.0-8.0 [facility] Comment on above: Result Comment: . Performed By: #### F ENTU, DRGA4, HCGUR, CUA2 #### [address] [place], [place] Protein (U) [Mass/Vol] 10 mg/dL Abnormal Negative [facility] Comment on above: Result Comment: . Performed By: #### F ENTU, DRGA4, HCGUR, CUA2 #### [address] [place], [place] RBC, Urine 0 - 2 Normal 0-2 [facility] Comment on above: Result Comment: . Performed By: #### F ENTU, DRGA4, HCGUR, CUA2 #### [address] [place], [place] Specific [place],Urine 1.019 Normal 1.005 - 1.030 [facility] Comment on above: Result Comment: . Performed By: #### F ENTU, DRGA4, HCGUR, CUA2 #### [address] [place], [place] Squamous Epithelial 0 - 2 Normal 3-5 [facility] Comment on above: Result Comment: . Performed By: #### F ENTU, DRGA4, HCGUR, CUA2 #### [address] [place], [place] Urobilinogen,Urine Normal Normal Normal (0-1) [facility] Comment on above: Result Comment: . Performed By: #### F ENTU, DRGA4, HCGUR, CUA2 #### [address] [place], [place] WBC LM.HPF (Urine sed) [#/Area] Negative Normal 0-5 [facility] Comment on above: Result Comment: . Performed By: #### F ENTU, DRGA4, HCGUR, CUA2 #### [address] [place], [place] Drugs of Abuseon 09-13-2021 Amphetamines, Ur Positive Normal [facility] Comment on above: Performed By: #### F ENTU, DRGA4, HCGUR, CUA2 #### [address] [place], [place] Phencyclidine (PCP), Ur Negative Normal [facility] Comment on above: Result Comment: The expected [...] #### F ENTU, DRGA4, HCGUR, CUA2 #### [address] [place], [place] Opiates, Ur Negative Normal [facility] Comment on above: Performed By: #### F ENTU, DRGA4, HCGUR, CUA2 #### [address] [place], [place] Cocaine, Ur Negative Normal [facility] Comment on above: Performed By: #### F ENTU, DRGA4, HCGUR, CUA2 #### [address] [place], [place] Methadone, Ur Negative Normal [facility] Comment on above: Performed By: #### F ENTU, DRGA4, HCGUR, CUA2 #### [address] [place], [place] Benzodiazepines, Ur Positive Normal [facility] Comment on above: Performed By: #### F ENTU, DRGA4, HCGUR, CUA2 #### [address] [place], [place] Barbiturates, Ur Negative Normal [facility] Comment on above: Performed By: #### F ENTU, DRGA4, HCGUR, CUA2 #### [address] [place], [place] Oxycodone/Oxymorphine, Ur Negative Normal [facility] Comment on above: Performed By: #### F ENTU, DRGA4, HCGUR, CUA2 #### [address] [place] [address] ED Provider Noteon 2 ED Provider Note [...] ck < 2K Emergency Department Encounter Location: [facility] MED SURG Patient: Genesis Bradford : 1985 [...] # 2.4 1.0 - 4.3 10*3/uL [place] # 1.6 (H) 0.0 - 0.8 10*3/uL [...] eGFR >90.0 >60 mL/min EGFR IF NonAfrican Norwegian 85.0 >60 mL/min Calcium 9.4 8.4 - [...] Urine 5.5 5.0 - 8.0 NA Specific [place], Urine 1.019 1.005 - 1.030 NA Occult [...] admission, onward) Start Ordered Status Ordering Provider 09/15/21182909/13/21 180 traMADol (ULTRAM) tablet 100 mg EVERY 8 HOURS Followed by Linked Group Details Acknowledged SIMEON SMITH 09/14/21 18309/13/21 1806 traMADol (ULTRAM) tablet 100 mg EVERY (more content not included)... Normal [facility] ED Provider Note Emergency Department Encounter Location: [facility] EMERGENCY DEPT Patient: Genesis Bradford : 1985 Date of evaluation: 09/12/2021 ED Provider: Jennifer Hurtado, PLATFORM CONSULTANT - ANNUAL CAMPAIGN MANAGER 0600 Genesis Bradford was checked out to me by Guillermo DICKSONP . Please see his/her initial documentation for [...] # 2.4 1.0 - 4.3 10*3/uL [place] # 1.6 (H) 0.0 - 0.8 10*3/uL [...] eGFR >90.0 >60 mL/min EGFR IF NonAfrican Norwegian 85.0 >60 mL/min Calcium 9.4 8.4 - [...] Urine 5.5 5.0 - 8.0 NA Specific [place], Urine 1.019 1.005 - 1.030 NA Occult [...] NA CK (more content not included)... Normal [facility] ED Provider Note Emergency Department Encounter [facility] [...] Temporal, resp. rate 20, SpO2 97 %. [id number] in no acute distress. Alert and oriented [...] Creatinine 0.87 eGFR >90.0 EGFR IF NonAfrican Norwegian 85.0 CALCIUM, SERUM, [id number] 9.4 [SC] 0149 CBC with Auto Differential(!): WBC 15.2(!) RBC 4.37 Hemoglobin Quant 11.8 Hematocrit 35.1 MCV 80.2 MCH 26.9 MCHC 33.5 RDW 14.5 Platelet Count 340 MPV 8.6 [SC] 0149 BP: 116/78 [SC] Sat Sep 14, 2021 0534 EKG with normal sinus rhythm with a rate of 89. Patient with no ST elevations or depressions concerning for STEMI. EKG with normal axis. Intervals within normal limits. No previous EKGs for comparison. EKG interpreted by myself in [place]. [PK] ED Course User Index [PK] Madelin Calle MD [SC] João Stacy, PLATFORM CONSULTANT - ANNUAL CAMPAIGN MANAGER Presentation is concerning for substance abuse side [...] further medical management of rhabdomyolysis. Patient dialysis Lukez not capable of making decisions for self [...] occasionally words are mis-transcribed.) Madelin Calle MD [facility] Madelin Calle MD 09/14/21 0535 [facility] Patient: Genesis Bradford : 1985 [...] not slept in several days. Denies SI/HI. SAVOONGA I was wearing a N95 mask for the entirety of this encounter. Does this patient come from an ECF, SNF, Rehab, Residential or other Congregate setting: No (If yes [...] states to me that she lives in [place] where her mother lives. Patient has a [...] and Family: Not on file ? Attends [employer]: Not on file ? Active Member [...] No Kn (more content not included)... Normal [facility] Ethanolon 09-13-2021 Ethanol Lvl <0.010 0.000 - 0.010 g/dL [facility] Comment on above: NOTE: This result is for medical treatment only. Analysis performed using non-forensic procedures. Ethanol Serum/Plasmaon 09-13 Ethanol-Serum/Plasma < 0.010 Normal 0.000-0.010 [facility] Comment on above: Result Comment: NOTE : This result is for medical treatment only. Analysis performed using non-forensic procedures. Performed By: #### F ENTU, DRGA4, HCGUR, CUA2 #### [address] [id number] FENTANYL, URINEon 09-13-2021 Fentanyl Positive Negative [facility] Comment on above: Fentanyl has been sc reened for by Immunoassay at a 1 ng/ml threshold. POSITIVE results are not confirmed by a more specific alternative method unless requested. If confirmation is needed, request confirmation under separate order. NOTE: These results are for medical treatment only. Analysis performed using non-forensic procedures. Test Performed by [facility], [address] [place] [address] [facility] Fentanyl Screen, Urineon Fentanyl Screen, Urn Positive Normal Negative [facility] Comment on above: Result Comment: Fent anyl has been screened for by Immunoassay at a 1 ng/ml threshold. POSITIVE results are not confirmed by a more specific alternative method unless requested. If confirmation is needed, request confirmation under separate order. NOTE: These results are for medical treatment only. Analysis performed using non-forensic procedures. Performed By: #### F ENTU, DRGA4, HCGUR, CUA2 #### [address] HCG,Urine Qualon 09-13-2021 Beta HCG ( test) Ql (U) Negative Normal Negative [facility] Comment on above: Result Comment: Plea se note: Very dilute urine specimens, as indicated by a low specific gravity, may not contain signs sales representative levels of hCG. If is still suspected, a first morning urine specimen should be collected 48 hours later and tested. is the most common reason for HCG in urine, although choriocarcinoma, hydatidiform mole, and certain nontropho- blastic malignancies also result in detectable urinary HCG levels. Sensitivity = 20mIU/mL. Performed By: #### F ENTU, DRGA4, HCGUR, CUA2 #### [address] Hemogram w/ Autodiffon 09-13 Abs Baso Cnt 0.0 10*3/uL Normal 0.0-0.2 [facility] Comment on above: Performed By: #### F ENTU, DRGA4, HCGUR, CUA2 #### [facility] [address] [place], [place] Abs Neutrophile Cnt 11.0 10*3/uL High 1.8-7.0 [facility] Comment on above: Performed By: #### F ENTU, DRGA4, HCGUR, CUA2 #### [facility] [address] [place], [place] Basophils/100 WBC (Bld) 0.3 % Normal 0.0-2.0 [facility] Comment on above: Performed By: #### F ENTU, DRGA4, HCGUR, CUA2 #### [address] [place], [place] Eosinophils (Bld) [#/Vol] 0.1 10*3/uL Normal 0.0-0.5 [facility] Comment on above: Performed By: #### F ENTU, DRGA4, HCGUR, CUA2 #### [address] [place], [place] Eosinophils/100 WBC (Bld) 0.9 % Low 1.0-6.0 [facility] Comment on above: Performed By: #### F ENTU, DRGA4, HCGUR, CUA2 #### [address] [place], [place] Erythrocyte distribution width (RBC) [Ratio] 14.5 % Normal 11.5-14.5 [facility] Comment on above: Performed By: #### F ENTU, DRGA4, HCGUR, CUA2 #### [address] [place], [place] Granulocytes/100 WBC (Bld) 72.3 % Normal 40.0-80.0 [facility] Comment on above: Performed By: #### F ENTU, DRGA4, HCGUR, CUA2 #### [address] [place], [place] Hematocrit (Bld) [Volume fraction] 35.1 % Normal 35.0-47.0 [facility] Comment on above: Performed By: #### F ENTU, DRGA4, HCGUR, CUA2 #### [address] [place], [place] Hemoglobin (Bld) [Mass/Vol] 11.8 g/dL Normal 11.7-16.0 [facility] Comment on above: Performed By: #### F ENTU, DRGA4, HCGUR, CUA2 #### [address] [place], [place] Lymphocytes (Bld) [#/Vol] 2.4 10*3/uL Normal 1.0-4.3 [facility] Comment on above: Performed By: #### F ENTU, DRGA4, HCGUR, CUA2 #### [address] [place], [place] Lymphocytes/100 WBC (Bld) 15.7 % Low 20.0-40.0 [facility] Comment on above: Performed By: #### F ENTU, DRGA4, HCGUR, CUA2 #### [address] [place], [place] MCH (RBC) [Entitic mass] 26.9 pg Normal 26.0-34.0 [facility] Comment on above: Performed By: #### F ENTU, DRGA4, HCGUR, CUA2 #### [address] [place] MCHC 33.5 % Normal 32.0-36.0 [facility] Comment on above: Performed By: #### F ENTU, DRGA4, HCGUR, CUA2 #### [address] [place] MCV (RBC) [Entitic vol] 80.2 fL Normal 79.0-98.0 [facility] Comment on above: Performed By: #### F ENTU, DRGA4, HCGUR, CUA2 #### [address] [place], [place] Monocytes (Bld) [#/Vol] 1.6 10*3/uL High 0.0-0.8 [facility] Comment on above: Performed By: #### F ENTU, DRGA4, HCGUR, CUA2 #### [address] [place], [place] Monocytes/100 WBC (Bld) 10.8 % High 2.0-10.0 [facility] Comment on above: Performed By: #### F ENTU, DRGA4, HCGUR, CUA2 #### [address] Platelet mean volume (Bld) [Entitic vol] 8.6 fL Normal 7.4-10.4 [facility] Comment on above: Performed By: #### F ENTU, DRGA4, HCGUR, CUA2 #### [facility] [address] [place], [place] Platelets (Bld) [#/Vol] 340 10*3/uL Normal 140-440 [facility] Comment on above: Performed By: #### F ENTU, DRGA4, HCGUR, CUA2 #### [address] [place], [place] RBC (Bld) [#/Vol] 4.37 10*6/uL Normal 3.80-5.20 [facility] Comment on above: Performed By: #### F ENTU, DRGA4, HCGUR, CUA2 #### [address] [place], [place] WBC (Bld) [#/Vol] 15.2 10*3/uL High 3.6-10.7 [facility] Comment on above: Performed By: #### F ENTU, DRGA4, HCGUR, CUA2 #### [address] [place], [place] Hepatic Functionon 2 ALT [Catalytic activity/Vol] 108 U/L High 0-34 [facility] Comment on above: Result Comment: The ALT test is performed by an updated assay method. Please note that the reference intervals have been changed and are now sex specific. Performed By: #### E TOH4, BMP3, LFT3, CK3, HEMDF #### [address] [place], [place] ALP [Catalytic activity/Vol] 93 U/L Normal 38-126 [facility] Comment on above: Performed By: #### E TOH4, BMP3, LFT3, CK3, HEMDF #### [address] [place], [place] AST [Catalytic activity/Vol] 253 U/L High 15-46 [facility] Comment on above: Performed By: #### E TOH4, BMP3, LFT3, CK3, HEMDF #### [address] [place], [place] Bilirubin [Mass/Vol] 1.1 mg/dL Normal 0.2-1.3 [facility] Comment on above: Performed By: #### E TOH4, BMP3, LFT3, CK3, HEMDF #### [address] Bilirubin.indirect [Mass/Vol] 0.0 mg/dL Normal 0.0-0.3 [facility] Comment on above: Performed By: #### E TOH4, BMP3, LFT3, CK3, HEMDF #### [address] Protein [Mass/Vol] 8.6 g/dL High 6.3-8.2 [facility] Comment on above: Performed By: #### E TOH4, BMP3, LFT3, CK3, HEMDF #### [address] Albumin [Mass/Vol] 4.6 g/dL Normal 3.5-5.0 [facility] Comment on above: Performed By: #### E TOH4, BMP3, LFT3, CK3, HEMDF #### [address] Hepatic Function Panelon Albumin [Mass/Vol] 4.6 g/dL 3.5 - 5.0 g/dL [facility] ALP (Bld) [Catalytic activity/Vol] 93 U/L 38 - 126 U/L [facility] ALT [Catalytic activity/Vol] 108 U/L High 0 - 34 U/L [facility] Comment on above: The ALT test is perf ormed by an updated assay method. Please note that the reference intervals have been changed and are now sex specific. AST [Catalytic activity/Vol] 253 U/L High 15 - 46 U/L [facility] Bilirubin [Mass/Vol] 1.1 mg/dL 0.2 - 1 .3 mg/dL [facility] Bilirubin.indirect [Mass/Vol] 0.0 mg/dL 0.0 - 0.3 mg/dL [facility] Free PSA/Total PSA [Mass fraction] 8.6 g/dL High 6.3 - 8.2 g/dL [facility] No Panel Informationon 09-13 Interpretation and review of laboratory results Abnormal [facility] Test Performed by [facility], [address] [place] [id number] [place] [address] LAB [facility] , URINEon 2 Beta HCG ( test) Ql (U) Negative Negative [facility] Comment on above: Please note: Very di lute urine specimens, as indicated by a low specific gravity, may not contain signs sales representative levels of hCG. If is still suspected, a first morning urine specimen should be collected 48 hours later and tested. is the most common reason for HCG in urine, although choriocarcinoma, hydatidiform mole, and certain nontropho- blastic malignancies also result in detectable urinary HCG levels. Sensitivity = 20mIU/mL. Test Performed by [address] SARS-CoV-2 Antigenon 022 SARS-CoV-2 Antigen Negative Normal Negative [facility] Comment on above: Result Comment: A negative result does not rule out the possibility of SARS-CoV-2 infection. NAAT-based methods should be considered for symptomatic patients presenting greater than seven days after onset of symptoms. Method: Lateral flow immunoassay. Fact sheets for healthcare providers and patients can be found at the following sites: https://www.fda.gov/media/783068/download https://www.fda.gov/media/771205/download Performed By: #### F ENTU, DRGA4, HCGUR, CUA2 #### [address] [id number] SARS-CoV-2 Nucleocapsid Antigen Negative Negative [facility] Comment on above: A negative result does not rule out the possibility of SARS-CoV-2 infection. NAAT-based methods should be considered for symptomatic patients presenting greater than seven days after onset of symptoms. Method: Lateral flow immunoassay. Fact sheets for healthcare providers and patients can be found at the following sites: https://www.[employer].gov/media/269571/download https://www.fda.gov/media/281757/download Test Performed by [facility], [address] [place] [id number] [place] [address] LAB [facility] Urinalysison 09-13-2021 Appearance (U) Clear Clear NA [...] Interpretation and review of laboratory results Abnormal [facility] Ketones Ql (U) 80 mg/dL Abnormal Negative [facility] Comment on above: . LEUKOCYTES, UA Negative Negative Kwabena/uL [facility] Comment on above: . Nitrite, Urine Negative Negative NA [facility] Comment on above: . Occult Blood,Urine Negative Negative mg/dL [facility] Comment on above: . pH (U) 5.5 [pH] [facility] Comment on above: . Protein (U) [Mass/Vol] 10 mg/dL Abnormal Negative [facility] Comment on above: . RBC, UA 0-2 0 - 2 /[HPF] [facility] Comment on above: . Specific [place], Urine 1.019 [facility] Comment on above: . Squam Epithel, UA 0-2 3 - 5 /[HPF] [facility] Comment on above: . Urobilinogen, Urine Normal Normal ( 0-1) mg/dL [facility] Comment on above: . WBC, UA Negative 0 - 5 /[HPF] [facility] Comment on above: . Test Performed by [facility], [address] [place] [id number] [place] [address] Urine Drug Screenon 09-14-19 22 Amphetamines, urine Positive [facility] Barbiturates, Urine Negative [facility] Benzodiazepine Ur Qual Positive [facility] Cocaine Metabolites, Ur Negative [facility] Methadone, Urine Negative [facility] Opiates, Urine Negative [facility] Oxycodone Screen, Ur Negative [facility] A PCP, [...] confirmation under separate order. Test Performed by [facility], [address] [place] [address] [facility] CNCOon 09-12-2021 CNCO Letter Text Normal [facility] CNPNon 09-12-2021 CNPN Telephone (AGINTMAC) GENESIS BRADFORD ([id number]) 1985 F Date Time Provider Department 09/12/21 SANJU AN During your visit today, we recorded the following information about you: Luke Plascencia 09/12/2021 1:26 PM Signed No Show Documentation Genesis Bradford no showed [...] Luke Plascencia September 12, 2021 1:22 PM Allergies As [...] Encounter Status:Closed by LUKE PLASCENCIA on 09/12/21 [facility] GENESIS BRADFORD ([id number]) 1985 F Date Time Provider Department 08/22/21 VIBHA CHAVEZ During your visit today, we recorded the following information about you: FAISAL Mccurdy 08/22/2021 10:32 AM Signed SW phoned Pt to check on her wellbeing. Pt reported she went to [place]. Pt also stated no one called to schedule for her GI doctor. SW gave Pt phone numbers for GI [phone] and Infectious Disease [phone] doctor. 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] Prescriptions as of 08/22/2021 - traZODone (DESYREL) [...] without hepatic com*08/06/2021 Encounter Status:Closed by VIBHA CHAVEZ on 08/22/21 [facility] Giovanny 08-15-2021 ANATOLYN Telephone (PSYAGN) GENESIS BRADFORD ([id number]) 1985 F Date Time Provider Department 08/15/21 EMMETT CRYSTAL During your visit today, we recorded the [...] infection without hepatic com*08/06/2021 Encounter Status:Closed by ART MELÉNDEZBERLY on 08/15/21 [facility] CNPN Telephone (TXyavalu) GENESIS BRADFORD ([id number]) 1985 F Date Time Provider Department 08/15/21 SANJU AN During your visit today, we recorded the following information about you: Sanju An DO 08/15/2021 11:35 AM Signed Called the patient regarding her recent HCV quant RNA by PCR result 08/15/2021. Placed a consult for ID and GI. Answered pt's questions to the best of my ability. Pt agrees to follow up with the consults. Sanju An DO August 15, 2021 11:33 AM Allergies As of Date: 08/15/2021 Noted Allergy Reaction environmental [Other] 02/22/2009 5 - Intolerance Comments: Sinus infections/congestion Date Reviewed: 08/06/2021 Reviewed by: Toy Hay LPN - Fully Assessed Reason for Visit: Results [95] Primary Visit Diagnosis:Hepatitis C virus infection without hepatic coma, unspecified chronicity [B19.20] Order(s):CONSULT TO GASTROENTEROLOGY [9010] Order #: [id number]: 1 FUTURE CONSULT TO INFECTIOUS DISEASES [9016] Order #: [id number]: 1 FUTURE Prescriptions as of 08/15/2021 - [...] Status:Closed by SANJU AN on 08/15/21 Normal [facility] CBC panel Auto (Bld)on 08-14 Erythrocyte distribution width (RBC) [Ratio] 14.9 % Normal 11.5-15.0 [facility] Comment on above: Order Comment: Speci men Type: BLOOD SPECIMENOrdering Facility: [facility] Address: [address] [place] [address] Performed By: #### 5 8410-2 ####[facility] LABORATORYCLIA [id number] [address] [facility] Hematocrit (Bld) [Volume fraction] 39.7 % Normal 36.0-46.0 [facility] Comment on above: Order Comment: Speci men Type: BLOOD SPECIMENOrdering Facility: [facility] Address: [address] [place] [address] Performed By: #### 5 8410-2 ####[facility]ORATORYCLIA [id number] [address] [place] Hemoglobin (Bld) [Mass/Vol] 12.5 g/dL Normal 11.5-15.5 [facility] Comment on above: Order Comment: Speci men Type: BLOOD SPECIMENOrdering Facility: [facility] Address: [address] [place] [address] Performed By: #### 5 8410-2 ####[facility] LABORATORYCLIA [id number] [address] [place] MCH (RBC) [Entitic mass] 26.2 pg Normal 26.0-34.0 [facility] Comment on above: Order Comment: Speci men Type: BLOOD SPECIMENOrdering Facility: [facility] Address: [address] [address] Performed By: #### 5 8410-2 ####[facility] LABORATORYCLIA [id number] [address] STATES [facility] MCHC (RBC) [Mass/Vol] 31.5 g/dL Normal 30.5-36.0 [facility] Comment on above: Order Comment: Speci men Type: BLOOD SPECIMENOrdering Facility: [facility] Address: [address] [place] [address] Performed By: #### 5 8410-2 ####[facility] LABORATORYCLIA [id number] [address] [place] MCV (RBC) [Entitic vol] 83.2 fL Normal 80.0-100.0 [facility] Comment on above: Order Comment: Speci men Type: BLOOD SPECIMENOrdering Facility: [facility] Address: [address] [place] [address] Performed By: #### 5 8410-2 ####[facility]ORATORYCLIA [id number] [address] [place] Nucleated RBC (Bld) [#/Vol] 10*3/uL Normal <0.01 [facility] Comment on above: Order Comment: Speci men Type: BLOOD SPECIMENOrdering Facility: [facility] Address: [address] [place] [address] Performed By: #### 5 8410-2 ####[facility]ORATORYCLIA [id number] [address] Platelet mean volume (Bld) [Entitic vol] 9.6 fL Normal 9.0-12.7 [facility] Comment on above: Order Comment: Speci men Type: BLOOD SPECIMENOrdering Facility: [facility] Address: [address] [place] [address] Performed By: #### 5 8410-2 ####[facility] LABORATORYCLIA [id number] [place] [address] [place] Platelets (Bld) [#/Vol] 383 10*3/uL Normal 150-400 [facility] Comment on above: Order Comment: Speci men Type: BLOOD SPECIMENOrdering Facility: [facility] Address: [address] [place] [address] Performed By: #### 5 8410-2 ####[facility] LABORATORYCLIA [id number] [address] STATES OF [facility] RBC (Bld) [#/Vol] 4.77 10*6/uL Normal 3.90-5.20 [facility] Comment on above: Order Comment: Speci men Type: BLOOD SPECIMENOrdering Facility: [facility] Address: [address] [place] [address] Performed By: #### 5 8410-2 ####[facility] LABORATORYCLIA [id number] [address] STATES OF [facility] WBC (Bld) [#/Vol] 7.96 10*3/uL Normal 3.70-11.00 [facility] Comment on above: Order Comment: Speci men Type: BLOOD SPECIMENOrdering Facility: [facility] Address: [address] [place] [address] Performed By: #### 5 8410-2 ####[facility] LABORATORYCLIA [id number] [address] [facility] Comprehensive metabolic 2000 panelon 08-14-2021 Albumin [Mass/Vol] 4.2 g/dL Normal 3.9-4.9 [facility] Comment on above: Order Comment: Speci men Type: BLOOD SPECIMEN [facility]: [facility] Address: [address] [place] [address] Performed By: #### 2 4323-8, 3016-3 #### [facility] CLIA [id number]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 TREATMENT PANEL Lab Routine Uncomplicated opioid dependence (HCC) Expected: 11/18/2023 (Approximate), Expires: 11/17/2024 [facility] Work Phone: Comment on above: Expected: 11/18/2023 (Approximate), Expires: 11/17/2024 Start: 11-12-2023 End: 02-11-2024 Hemoglobin A1c in Blood [facility] Comment on above: Expected: 11/12/2023 , Expires: 02/11/2024 Start: 06-09-2023 Screening for malign ant neoplasm of cervix Cervical Cancer Screening [facility] Start: 05-25-2023 Behavioral Health Screening Behavioral Health Screening [facility] Start: 03-10-2023 [facility] Start: 01-23-2023 Covid-19 Vaccine () Covid-19 Vaccine () [facility] Start: 01-23-2023 Influenza vaccination INFLUENZA (Sea son Ended) [facility] Start: 08-06-2022 Adult depression screening assessment DEPRESSION SCREENING [facility] Start: 06-09-2022 End: 08-09-2022 Hepatitis B virus surface Ag [Presence] in Serum [facility] Work Phone: Comment on above: Expected: 06/09/2022 , Expires: 08/09/2022 Start: 06-09-2022 End: 08-09-2022 HIV 1+2 Ab [Presence] in Serum or Plasma by Immunoassay [facility] Work Phone: Comment on above: Expected: 06/09/2022 , Expires: 08/09/2022 Start: 06-09-2022 End: 08-09-2022 SYPHILIS TOTAL W/REFLEX [facility] Work Phone: Comment on above: Expected: 06/09/2022 , Expires: 08/09/2022 Start: 05-25-2022 DEPRESSION ASSESSMENT DEPRESSION ASS ESSMENT [facility] Start: 04-07-2022 Procedure [facility] Work Phone: Start: 01-23-2022 Influenza vaccination C [facility] Start: 03-11-2021 HPV TESTING HPV TESTING [facility] Start: 03-11-2021 PAP TESTING PAP TESTING [facility] Start: 01-23-2021 Influenza vaccination INFLUENZA (#1) [facility] Start: 01-24-2020 Influenza vaccination Flu vacc ine (Season Ended) [place], [place] Start: 2014 Screening for malign ant neoplasm of cervix [facility] Start: 08-09-2011 HPV Vaccine (1 - 3-d ose SCDM series) HPV Vaccine (1 - 3-dose SCDM series) [facility] Start: 2005 Screening for malign ant neoplasm of cervix Pap Smear [facility] Start: 08-09-2003 Hepatitis A Vaccines (1 of 2 - Risk 2-dose series) Hepatitis A Vaccines (1 of 2 - Risk 2-dose series) [facility] Start: 08-09-2003 Hepatitis B Vaccine (1 of 3 - 19+ 3-dose series) Hepatitis B Vaccine (1 of 3 - 19+ 3-dose series) [facility] Start: 08-09-2003 Hepatitis B Vaccines (1 of 3 - 19+ 3-dose series) Hepatitis B Vaccines (1 of 3 - 19+ 3-dose series) [facility] Start: 08-09-2003 ONE PNEUMOVAX PRIOR TO AGE 65 ONE PNEUMOVAX PRIOR TO AGE 65 [facility] Start: 08-09-2003 Pneumococcal vaccination Pneumococcal Vaccine (1 of 2 - PCV) [facility] Start: 08-09-2003 Pneumococcal Vaccine : Pediatrics (0 to 5 Years) and At-Risk Patients (6 to 49 Years) (1 of 2 - PCV) Pneumococcal Vaccine: Pediatrics (0 to 5 Years) and At-Risk Patients (6 to 49 Years) (1 of 2 - PCV) [facility] Start: 2002 Depression Screening Depression Scre ing [facility] Start: 1997 Varicella vaccination Varicell a Vaccines (1 of 2 - 13+ 2-dose series) [facility] Start: 1996 Depression Screening Depression Scre ing [facility] Start: 1990 PNEUMOCOCCAL (1 - PCV) PNEUMOCOCCAL (1 - PCV) [facility] Start: 1990 Pneumococcal vaccination Pneumococcal Vaccine (1 of 2 - PCV) [facility] Start: 1990 Pneumococcal Vaccine : Pediatrics (0 to 5 Years) and At-Risk Patients (6 to 64 Years) (1 of 2 - PCV) Pneumococcal Vaccine: Pediatrics (0 to 5 Years) and At-Risk Patients (6 to 64 Years) (1 of 2 - PCV) [facility] Start: 1989 COVID-19 VACCINE (1) COVID-19 VACCIN E (1) [facility] Start: 1985 MMR Vaccines (1 of 1 - Standard series) MMR Vaccines (1 of 1 - Standard series) [facility] Start: 02-08-1985 COVID-19 VACCINE (#1) COVID-19 VACCI NE (#1) [facility] Start: 1984 HEPATITIS B (1 of 3 - 3-dose series) HEPATITIS B (1 of 3 - 3-dose series) [facility] Start: 1984 HIV screening HIV Screening [facility] Bacteria identified in Urine by Culture URINE CULTURE Microbiology Routine Dysuria 10/06/2022 12:14 PM EDT [facility] Work Phone: Bacteria identified in Urine by Culture BACTERIAL CULTURE, URINE Microbiology Routine Urinary frequency Ordered: 02/02/2025 [facility] Work Phone: Comment on above: Ordered: 02/02/2025 BACTERIAL VAGINOSIS AMPLIFICATION BACTERIAL VAGINOSIS AMPLIFICATION Lab Routine Screen for STD (sexually transmitted disease) 06/09/2022 2:07 PM DC Devices [facility] Work Phone: BACTERIAL VAGINOSIS AMPLIFICATION BACTERIAL VAGINOSIS AMPLIFICATION Lab Routine Vulvar irritation 10/06/2022 12:14 PM EDT [facility] Work Phone: BACTERIAL VAGINOSIS NAAT BACTERIAL VAGINOSIS NAAT Lab Routine Screening for STD (sexually transmitted disease) Ordered: 04/05/2024 [facility] Comment on above: Ordered: 04/05/2024 Basic metabolic 2000 panel - Serum or Plasma Basic Metabolic Panel Lab Routine Daily until discontinued starting 09/14/2021, 1 completed [facility] Work Phone: Comment on above: Daily until disconti nued starting 09/14/2021, 1 completed KEAGAN / TRICHOMONA S AMPLIFICATION KEAGAN / TRICHOMONAS AMPLIFICATION Microbiology Routine Screen for STD (sexually transmitted disease) 06/09/2022 2:07 PM EST [facility] Work Phone: KEAGAN / TRICHOMONA S AMPLIFICATION KEAGAN / TRICHOMONAS AMPLIFICATION Microbiology Routine Vulvar irritation 10/06/2022 12:14 PM EDT [facility] Work Phone: KEAGAN/TRICHOMONAS NAAT KEAGAN/TRICHOMONAS NAAT Lab Routine Screening for STD (sexually transmitted disease) Ordered: 04/05/2024 [facility] Comment on above: Ordered: 04/05/2024 CBC W [...] STD (sexually transmitted disease) 06/09/2022 2:07 PM [facility] Work Phone: Chlamydia trachomatis+Neisseria gonorrhoeae DNA [Presence] in Unspecified specimen by DARIO with probe detection GC/CHLAMYDIA DNA DET Lab Routine Screen for STD (sexually transmitted disease) Vulvar irritation 10/06/2022 12:14 PM EDT [facility] Work Phone: Chlamydia trachomatis+Neisseria gonorrhoeae DNA [Presence] in Unspecified specimen by DARIO with probe detection GONORRHEA/CHLAMYDIA NAAT Lab Routine Screen for STD (sexually transmitted disease) 01/04/2024 2:00 PM EDT [facility] Chlamydia trachomatis+Neisseria gonorrhoeae DNA [Presence] in Unspecified specimen by DARIO with probe detection GONORRHEA/CHLAMYDIA NAAT Lab Routine Screening for STD (sexually transmitted disease) Ordered: 04/05/2024 [facility] Comment on above: Ordered: 04/05/2024 Chlamydia trachomatis+Neisseria gonorrhoeae DNA [Presence] in Unspecified specimen by DARIO with probe detection GONORRHEA/CHLAMYDIA NAAT Lab Routine Screen for STD (sexually transmitted disease) 12/22/2024 3:20 PM EDT [facility] COLPOSCOPY COLPOSCOPY Proce dures Routine ASCUS with positive high risk HPV cervical Ordered: 11/30/2023 [facility] Work Phone: Comment on above: Ordered: 11/30/2023 Continuous pulse oximetry Pulse oximetry, continuous Respiratory Care Routine Every 4hr until discontinued starting 09/13/2021 [employer] Work Phone: Comment on above: Every 4hr until disc ontinued starting 09/13/2021 COVID & INFLUENZA A/ B & RSV PCR, ROUTINE COVID & INFLUENZA A/B & RSV PCR, ROUTINE Microbiology Routine URI, acute Ordered: 05/10/2024 [facility] Work Phone: Comment on above: Ordered: 05/10/2024 End: 01-21-2026 DBT Breast - bilateral screening JERRI SCREENING W ESTEVAN Radiology Routine Encounter for gynecological examination (general) (routine) without abnormal findings Encounter for screening mammogram for breast cancer 1 Occurrences starting 12/22/2024 until 01/21/2026 [facility] Work Phone: Comment on above: 1 Occurrences starti ng 12/22/2024 until 01/21/2026 Hepatic function 200 0 panel - Serum or Plasma Hepatic function panel Lab Routine Daily until discontinued starting 09/14/2021, 1 completed [employer] Work Phone: Comment on above: Daily until disconti nued starting 09/14/2021, 1 completed Oxygen therapy [[facility] Data Set] Initiate Oxygen Therapy Protocol Respiratory Care Routine Daily until discontinued starting 09/13/2021 [employer] Work Phone: Comment on above: Daily until disconti nued starting 09/13/2021 PAP FLUID CERVICAL SCREENING PAP FLUID CERVICAL SCREENING Lab Routine Encounter for gynecological examination (general) (routine) without abnormal findings Screening for cervical cancer Encounter for screening for human papillomavirus (HPV) 06/09/2022 2:07 PM EST [facility] Work Phone: PAP TEST PAP TEST Lab Rou tawnya Screening for cervical cancer Encounter for screening for human papillomavirus (HPV) Ordered: 11/12/2023 [facility] Work Phone: Comment on above: Ordered: 11/12/2023 PAP TEST PAP TEST Lab Rou tawnya Encounter for gynecological examination (general) (routine) without abnormal findings Screening for cervical cancer Encounter for screening for human papillomavirus (HPV) 12/22/2024 3:20 PM EDT [facility] Patient Education [facility] Work Phone: Patient referral [facility] Work Phone: Procedure [facility] Work Phone: SURGICAL PATHOLOGY SURGICAL PATH OLOGY Lab Routine ASCUS with positive high risk HPV cervical 01/04/2024 2:00 PM EDT [facility] TRICHOMONAS VAGINALI S NAAT TRICHOMONAS VAGINALIS NAAT Lab Routine Screen for STD (sexually transmitted disease) 01/04/2024 2:00 PM EDT [facility] End: 09-13-2021 URINE DRUG SCREEN URINE DRUG SCREEN Lab Add-On One Time for 1 Occurrences starting 09/13/2021 until 09/13/2021 [facility] Work Phone: Comment on above: One Time for 1 Occur rences starting 09/13/2021 until 09/13/2021 Urine test visual color cmprsn meths HCG QUAL UR B/O Lab Routine Encounter for test, result unknown Ordered: 09/03/2024 [facility] Work Phone: Comment on above: Ordered: 09/03/2024 End: 09-13-2021 Wound Consult Wound Consult Wound Ostomy Routine One Time for 1 Occurrences starting 09/13/2021 until 09/13/2021 [facility] Work Phone: Comment on above: One Time for 1 Occur rences starting 09/13/2021 until 09/13/2021 [facility] Immunizations Immunization Date Immunization Notes Care Provider Joey lindquist 11-14-2017 tetanus toxoid, redu kiki diphtheria toxoid, and acellular pertussis vaccine, adsorbed Vibha Chavez AGRICULTURAL ECONOMIST Work Phone: [facility] 03-03-2017 influenza, injectabl e, quadrivalent, contains preservative Vibha Chavez AGRICULTURAL ECONOMIST Work Phone: [facility] 03-03-2017 influenza virus vaccine, unspecified formulation Talia Brito APRN.CNP Work Phone: [facility] 03-11-2016 influenza, injectabl e, quadrivalent, contains preservative Vibha Chavez AGRICULTURAL ECONOMIST Work Phone: [facility] 03-11-2016 influenza, seasonal, injectable Vibha Chavez AGRICULTURAL ECONOMIST Work Phone: [facility] Work Phone: 02-26-2013 influenza virus vaccine, unspecified formulation Vibha Chavez AGRICULTURAL ECONOMIST Work Phone: [facility] Work Phone: 03-01-2011 influenza virus vaccine, unspecified formulation Vibha Parks-Kiel AGRICULTURAL ECONOMIST Work Phone: [facility] Work Phone: 03-14-2010 influenza virus vaccine, unspecified formulation Vibha Chavez AGRICULTURAL ECONOMIST Work Phone: [facility] Work Phone: 02-17-2009 influenza virus vaccine, unspecified formulation Vibha Chavez AGRICULTURAL ECONOMIST Work Phone: [facility] Work Phone: 10-20-2007 tetanus toxoid, redu kiki diphtheria toxoid, and acellular pertussis vaccine, adsorbed Vibha Chavez AGRICULTURAL ECONOMIST Work Phone: [facility] 03-30-2006 influenza virus vaccine, unspecified formulation Vibha Chavez AGRICULTURAL ECONOMIST Work Phone: [facility] Payers Date Payer Category Payer Self-pay [id number] 2022 Medicaid HMO [employer] ODM [id number] 2022 Unknown [id number] 2017 Medicaid [employer] [id number] 2017-Present [phone] [address] [place] [address] Medicaid [id number] 2017 Medicaid [id number] 1984 Unknown [id number] 1984 Unknown [id number] 1984 Unknown [id number] 1984 Unknown [id number] Unknown [id number] Unknown [id number] Unknown [id number] Unknown [id number] Unknown [id number] Unknown [id number] Social History Date Type Detail Facility Start: 09-25-2019 End: 11-07-2024 Tobacco smoking status TXIS Current every day smoker [facility] Work Phone: Start: 09-25-2019 End: 02-02-2025 Alcohol intake Ex-drinker (finding) [employer] [facility] Start: 1985 [facility] -2 (event) [facility] History of tobacco use Cigarette Smoker [facility] Work Phone: Start: 08-06-2021 Alcohol intake Current drinke r of alcohol (finding) [facility] Start: 03-11-2016 History SDOH Alcohol Comment Occasionally [facility] Start: 1985 Sex Assigned At Female [facility] Start: 08-04-2021 End: 08-14-2021 Exposure to SARS-CoV-2 (event) Not sure [facility] Start: 09-03-2021 End: 09-13-2021 Exposure to SARS-CoV-2 (event) Yes [facility] Start: 04-06-2021 End: 03-10-2023 Tobacco smoking status NHIS Unknown if ever smoked [facility] Start: 08-29-2020 None [facility] Start: 08-29-2020 Cocaine;Heroin ;Marijua na [facility] Start: 08-29-2020 Homeless [facility] Start: 08-29-2020 Cigarettes [facility] Start: 06-09-2022 End: 06-11-2023 Cigarettes smoked current (pack per day) - Reported 1 [facility] Start: 06-09-2022 End: 12-22-2024 Tobacco use and exposure Smokeless tobacco non-user [facility] Start: 06-11-2023 End: 11-12-2023 Tobacco use panel [facility] Start: 04-25-2012 Adult Depression Screening Assessment 0 [facility] Start: 07-23-2021 Gender identity Identifies as female gender (finding) [facility] Start: 07-23-2021 Sexual orientation Heterosexual (conrad moreno) [facility] Start: 12-23-2021 End: 08-18-2024 Sex Female (finding) [facility] Start: 12-22-2024 Tobacco smoking stat us NHIS Occasional tobacco smoker [facility] NEGATED: Highlighted row [facility] Functional Status Date Assessment Result Facility 12-13-2014 Are you deaf, or do you have serious difficulty hearing No 12/13/2014 2:40 PM EDT Aguilar Corral [facility] 12-13-2014 Are you blind, or do you have serious difficulty seeing, even when wearing glasses No 12/13/2014 2:40 PM EDT Aguilar Corral [facility] 12-13-2014 Do you have serious difficulty walking or climbing stairs No 12/13/2014 2:40 PM EDT Niki Sheikh [facility] 12-13-2014 Do you have difficul ty dressing or bathing No 12/13/2014 2:40 PM EDT Niki Sheikh [facility] 12-13-2014 Because of a physica l, mental, or emotional condition, do you have difficulty doing errands alone such as visiting a physician's office or shopping No 12/13/2014 2:40 PM EDT Aguilar CorralBeaNiki [facility] Mental Status Date Assessment Result Facility 11-07-2024 Cognitive function Level Of Cons ciousness Awake;Alert;Appropriate;Fol lows Commands [facility] Work Phone: 12-13-2014 Because of a physica l, mental, or emotional condition, do you have serious difficulty concentrating, remembering, or making decisions No 12/13/2014 2:40 PM EDT Niki Sheikh [facility] Clinical Notes 09-17-2006 to 03-14-2025 Patient InstructionsConnor Escobar APRN.[facility] - 02/02/2025 5:00 PM EDTPatient InstructionsYamila Lindsay APRN.[facility] - 01/31/2025 2:21 PM EDAmanda Bain APRN.[facility] - 12/22/2024 2:30 PM EDT Note Date & Type Note Facility 03-14-2025 Note HNO ID: [id number] Author: ALESIA FULLER RT(R) Service: ? Author Type: Technologist Type: Progress Notes Filed: 03/14/2025 14:21 Note Text: Radiology Service Progress Note PATIENT NAME: Genesis Klein DATE OF SERVICE: March 14, 2025 TIME: 2:13 PM PATIENT IDENTITY VERIFICATION COMPLETED USING TWO (2) IDENTIFIERS: Name and Date of confirmed by patient verbally. FALL SCREENING: Has the patient had 2 falls in the last year or 1 fall with injury or currently using an Ambulatory Assistive Device (Walker, Cane, Wheelchair, Crutches, etc.)? No PATIENT GENDER DATA: Assigned female at . status: : No status: NO. PATIENT RELEVANT IMPLANT DATA REVIEWED: Yes PATIENT PRESENTS WITH AN IMPLANTABLE OR ATTACHED SAND CUTTING MACHINE OPERATOR: No RADIOLOGY DEPARTMENT: General X-ray: Exam(s) Completed: Chest X-Ray PERIPHERAL IV DATA: Not applicable SIGNED BY: Alesia Fuller, RT(R) March 14, 2025 2:13 PM [facility] 03-14-2025 Note HNO ID: [id number] Author: GEENA RANGEL PA Service: ? Author Type: Physician Real Estate Sales Associate Type: Progress Notes Filed: 03/14/2025 14:16 Note Text: URGENT CARE [facility]ARCY Libia Genesis Klein is a 39 year old female. Patient presents with: Cough: Cough, Shortness of Breath, green drainage, chest congestion, fever and bodyaches x 3-4 days HPI The patient is a 39-year-old female presenting with dyspnea, cough, and chest pain. Dyspnea and Cough: - Dyspnea and cough x2 days. - Cough is non-productive, with occasional small amounts of sputum. - Woke up in the middle of the night with dyspnea and cough, accompanied rib pain. - Uses inhaler multiple times daily; last used when sick. - Denies asthma diagnosis; scheduled to see a foot drill operator on March 30. - Vapes and occasionally smokes cigarettes; a pack lasts approximately 2 weeks. - Took ibuprofen today. - Reports nasal congestion. PAST MEDICAL HISTORY Diagnosis Date Abnormal glandular Papanicolaou smear of cervix Abn. Pap smear (cervix) Allergic rhinitis, cause unspecified Allergy, airborne subst Generalized anxiety disorder Anxiety, Generalized Hepatitis C treated PAST SURGICAL HISTORY Procedure Laterality Date DELIVERY ONLY , low cervical COLPOSCOPY CERVIX UPPER/ADJACENT VAGINA Colposcopy CONIZATION CERVIX W/WO DANDC RPR ELTRD EXC LEEP-Cervix DILATION AND CURETTAGE DXAND/THER NONOBSTETRIC Dilation AND curettage INDUCED HX TONSILLECTOMY PRIMARY/SECONDARY Tonsillectomy ALLERGIES Patient has no known allergies. MEDICATIONS naproxen (NAPROSYN) 500 mg tablet Take 1 tablet by mouth two times a day as needed (FOR PAIN - TAKE WITH FOOD.). predniSONE (DELTASONE) 20 mg tablet Take 2 tablets by mouth once daily for 5 days. benzonatate (TESSALON PERLE) 100 mg capsule Take 1 capsule by mouth three times a day as needed. albuterol HFA (PROVENTIL HFA, VENTOLIN HFA) 90 mcg/actuation inhaler Inhale 2 puffs as instructed every 4 hours as needed for wheezing/shortness of breath. fluticasone (FLONASE) 50 mcg/actuation nasal spray Use 2 sprays in each nostril once daily. Rinse mouth after use. FAMILY HISTORY Problem Relation Age of Onset Hypertension Mother Thyroid Mother Hypothyroid Diabetes Mother GI Father GB Hypertension Father Lipids Father GI Sister GB No Known Problems Brother Arthritis Maternal Grandmother Heart Maternal Grandmother BYPASS SURGERY Lipids Maternal Grandmother Thyroid Maternal Grandmother Hypothyroid Diabetes Maternal Grandmother COPD Maternal Grandmother Lung Cancer Maternal Grandmother Lipids Maternal Grandfather Heart Paternal Grandmother CA Lung Cancer Paternal Grandmother Colon Cancer Paternal Grandfather Prostate Cancer Paternal Grandfather Thyroid Other MATERNAL 1ST COUSIN BORN WITHOUT THYROID SOCIAL HISTORY[1] Review of Systems Constitutional: (+) subjective fever Ears/Nose/Mouth/Throat: (+) nasal congestion Cardiovascular: (+) chest pain Respiratory: (+) shortness of breath, (+) cough, (+) purulent sputum Musculoskeletal: (+) rib pain Objective BP 122/78 Pulse 100 Temp 36.9 ?C (98.5 ?F) (Tympanic) Resp 18 Wt 69.3 kg (152 lb 12.5 oz) LMP 01/24/2025 (Approximate) SpO2 96% BMI 28.40 kg/m? Physical Exam General: Not in acute distress, normal appearance, well-developed, not toxic-appearing HEENT - Eyes: Conjunctivae normal - Ears: Right ear: Tympanic membrane normal, ear canal normal; Left ear: Tympanic membrane normal, ear canal normal - Nose/Sinuses: Nose normal - Oropharynx: Mucous membranes moist, oropharynx clear, uvula midline Cardiovascular - Rate/Rhythm: Normal rate and regular rhythm - Heart Sounds: Normal heart sounds Pulmonary - Lung Sounds: Wheezing throughout - Respiratory Effort: Pulmonary effort normal Neurologic - Mental Status: Alert Skin: Skin warm and dry Lymphatic - Cervical: No cervical adenopathy { 1. Acute cough (R05.1) 2. Wheezing (R06.2) - Acute cough with wheezing and chest discomfort; exam notable for wheezing - Differential includes bronchitis vs. pneumonia. - Ordered chest X-ray to rule out pneumonia. - Rx for prednisone, refill inhaler, refill Flonase and Rx Tessalon Perles for suspected bronchitis. - Will call in antibiotic if chest x-ray positive for pneumonia - Refill inhaler as requested. - Will call patient with X-ray results and further management plan. - Provided work excuse as requested. 3. Smoker (F17.200) - Patient vapes and occasionally smokes cigarettes. - and Recording using [employer] software for draft documentation of the visit was discussed with the patient/authorized signs sales representative; all questions welcomed and answered. Patient/authorized signs sales representative agreed to proceed Diagnosis and treatment plan were discussed and questions were answered to the patient's satisfaction. Pt acknowled (more content not included)... [facility] 02-02-2025 Connor Jeff, WARREN.ANATOLY - 02/02/2025 5:14 PM EDT ASSESSMENT/PLAN: 1. Urinary frequency - ICD9: 788.41, ICD10: R35.0 (primary diagnosis) acute - UA negative, suspect lower abdominal pain/cramping from doxycycline, take with food to avoid upset stomach - Send urine for culture- Will call if any changes needed in antibiotic , stay on doxycycline and steroid, take naproxen if pain still not improving - Patient education for prevention given - UA DIP, URINE (POC) - BACTERIAL CULTURE, URINE 2. Antibiotic-induced yeast infection - ICD9: 112.9, E930.9, ICD10: B37.9, T36.95XA - take only if signs of yeast infection develop - FLUCONAZOLE 150 MG TABLET 3. Dysuria - ICD9: 788.1, ICD10: R30.0 acute - Send urine for culture - Patient education for prevention given - NAPROXEN 500 MG TABLET - supportive care with rest, hydration Connor Escobar APRN.ANNUAL CAMPAIGN MANAGER -I have reviewed and updated with the patient: allergies, VS, current medications, Past Medical History,Past Surgical History,Past Family Medical History, Past Social History. - Patient education provided today - Discussed with patient medications that are indicated and how to use the medications and what the potential side effects are. - Warning signs of worsening condition explained to patient -Instructed to follow up with PCP if symptoms not improving in next 2-3 days - Patient left in stable condition after questions answered and patient verbalizes understanding - Instructed to go to Emergency Department right away with any severe worsening chest pain, shortness of breath, headache, dizziness, weakness, numbness,leg swelling , tingling, problems walking or speaking or any other concerning symptoms documented in this encounter [facility] 02-02-2025 Note HNO ID: [id number] Author: CONNOR ESCOBAR APRN.ANATOLY Service: ? Author Type: Nurse Practitioner Type: Progress Notes Filed: 02/02/2025 17:27 Note Text: URGENT CARE [facility]ARCY Reza Durgakristieyolis Klein is a 39 year old female c/o left lower abdominal pain and cramping with urinary frequency in last day, just started doxycycline for folliculitis in last 2 days, mild burning urination Patient presents with: Urinary Problem: Frequency, left side groin pain x 8 hours The history is provided by the patient. UTI This is a new problem. The current episode started 6 to 12 hours ago. The problem occurs intermittently. The problem has not changed since onset.The pain is mild. There has been no fever. Associated symptoms include frequency, urgency and flank pain. Pertinent negatives include no chills. Review of Systems Constitutional: Negative for chills, fatigue and fever. HENT: Negative. Respiratory: Negative for cough and shortness of breath. Gastrointestinal: Positive for abdominal pain. Genitourinary: Positive for dysuria, flank pain, frequency and urgency. Objective BP 102/68 Pulse 103 Temp 37.1 ?C (98.7 ?F) Resp 21 Wt 66.9 kg (147 lb 7.8 oz) LMP 01/24/2025 (Approximate) SpO2 96% BMI 27.42 kg/m? Physical Exam Vitals and nursing note reviewed. Constitutional: Appearance: Normal appearance. Pulmonary: Effort: Pulmonary effort is normal. Breath sounds: Normal breath sounds. Abdominal: General: Abdomen is flat. There is no distension. Palpations: Abdomen is soft. There is no mass. Tenderness: There is no abdominal tenderness (none significant per self palpatation). There is no right CVA tenderness, left CVA tenderness, guarding or rebound. Hernia: No hernia is present. Skin: General: Skin is dry. Neurological: General: No focal deficit present. Mental Status: She is alert. ASSESSMENT/PLAN: 1. Urinary frequency - ICD9: 788.41, ICD10: R35.0 (primary diagnosis) acute - UA negative, suspect lower abdominal pain/cramping from doxycycline, take with food to avoid upset stomach - Send urine for culture- Will call if any changes needed in antibiotic , stay on doxycycline and steroid, take naproxen if pain still not improving - Patient education for prevention given - UA DIP, URINE (POC) - BACTERIAL CULTURE, URINE 2. Antibiotic-induced yeast infection - ICD9: 112.9, E930.9, ICD10: B37.9, T36.95XA - take only if signs of yeast infection develop - FLUCONAZOLE 150 MG TABLET 3. Dysuria - ICD9: 788.1, ICD10: R30.0 acute - Send urine for culture - Patient education for prevention given - NAPROXEN 500 MG TABLET - supportive care with rest, hydration Connor Escobar APRN.ANNUAL CAMPAIGN MANAGER -I have reviewed and updated with the patient: allergies, VS, current medications, Past Medical History,Past Surgical History,Past Family Medical History, Past Social History. - Patient education provided today - Discussed with patient medications that are indicated and how to use the medications and what the potential side effects are. - Warning signs of worsening condition explained to patient -Instructed to follow up with PCP if symptoms not improving in next 2-3 days - Patient left in stable condition after questions answered and patient verbalizes understanding - Instructed to go to Emergency Department right away with any severe worsening chest pain, shortness of breath, headache, dizziness, weakness, numbness,leg swelling , tingling, problems walking or speaking or any other concerning symptoms History and Record Review External record(s) reviewed: prior outpatient record. Differential Diagnoses - gi upset from doxycycline is more likely for the following reason(s): suggested by HANDP - uti is less likely for the following reason(s): laboratory studies not suggestive Disposition The patient was discharged. OTC Medications were advised: Procedures [facility] 02-02-2025 History of Presen t illness Narrative [facility] Reza Genesis Klein is a 39 year old female c/o left lower abdominal pain and cramping with urinary frequency in last day, just started doxycycline for folliculitis in last 2 days, mild burning urination Patient presents with: Urinary Problem: Frequency, left side groin pain x 8 hours The history is provided by the patient. UTI This is a new problem. The current episode started 6 to 12 hours ago. The problem occurs intermittently. The problem has not changed since onset.The pain is mild. There has been no fever. Associated symptoms include frequency, urgency and flank pain. Pertinent negatives include no chills. Review of Systems Constitutional: Negative for chills, fatigue and fever. HENT: Negative. Respiratory: Negative for cough and shortness of breath. Gastrointestinal: Positive for abdominal pain. Genitourinary: Positive for dysuria, flank pain, frequency and urgency. Objective BP 102/68 Pulse 103 Temp 37.1 C (98.7 F) Resp 21 Wt 66.9 kg (147 lb 7.8 oz) LMP 01/24/2025 (Approximate) SpO2 96% BMI 27.42 kg/m Physical Exam Vitals and nursing note reviewed. Constitutional: Appearance: Normal appearance. Pulmonary: Effort: Pulmonary effort is normal. Breath sounds: Normal breath sounds. Abdominal: General: Abdomen is flat. There is no distension. Palpations: Abdomen is soft. There is no mass. Tenderness: There is no abdominal tenderness (none significant per self palpatation). There is no right CVA tenderness, left CVA tenderness, guarding or rebound. Hernia: No hernia is present. Skin: General: Skin is dry. Neurological: General: No focal deficit present. Mental Status: She is alert. ASSESSMENT/PLAN: 1. Urinary frequency - ICD9: 788.41, ICD10: R35.0 (primary diagnosis) acute - UA negative, suspect lower abdominal pain/cramping from doxycycline, take with food to avoid upset stomach - Send urine for culture- Will call if any changes needed in antibiotic , stay on doxycycline and steroid, take naproxen if pain still not improving - Patient education for prevention given - UA DIP, URINE (POC) - BACTERIAL CULTURE, URINE 2. Antibiotic-induced yeast infection - ICD9: 112.9, E930.9, ICD10: B37.9, T36.95XA - take only if signs of yeast infection develop - FLUCONAZOLE 150 MG TABLET 3. Dysuria - ICD9: 788.1, ICD10: R30.0 acute - Send urine for culture - Patient education for prevention given - NAPROXEN 500 MG TABLET - supportive care with rest, hydration Connor Escobar APRN.ANATOLY -I have reviewed and updated with the patient: allergies, VS, current medications, Past Medical History,Past Surgical History,Past Family Medical History, Past Social History. - Patient education provided today - Discussed with patient medications that are indicated and how to use the medications and what the potential side effects are. - Warning signs of worsening condition explained to patient -Instructed to follow up with PCP if symptoms not improving in next 2-3 days - Patient left in stable condition after questions answered and patient verbalizes understanding - Instructed to go to Emergency Department right away with any severe worsening chest pain, shortness of breath, headache, dizziness, weakness, numbness,leg swelling , tingling, problems walking or speaking or any other concerning symptoms History and Record Review External record(s) reviewed: prior outpatient record. Differential Diagnoses - gi upset from doxycycline is more likely for the following reason(s): suggested by H&P - uti is less likely for the following reason(s): laboratory studies not suggestive Disposition The patient was discharged. OTC Medications were advised: Procedures documented in this encounter [facility] 01-31-2025 Instructions Yamila Lindsay APRN.CNP - 01/31/2025 2:22 PM EDT 1. Viral bronchitis (J20.8) - Likely triggered by allergies; exam notable for wheezing and inflammation. - Start prednisone. - Refill inhaler. - Educated on difference between bronchodilator and anti-inflammatory medications; advised to take prednisone as soon as possible and not immediately before bed. - Discussed that asthma diagnosis requires pulmonary function testing, which can be ordered by primary care provider. 2. Folliculitis (L73.9) - Start antibiotic. - warm compresses may be helpful - Refill your albuterol inhaler at [facility] and use it as needed for wheezing or shortness of breath. - Begin the prednisone steroid course today; take the first dose as soon as possible in the morning and avoid taking it right before bedtime. - Continue using your albuterol inhaler along with the prednisone; they work together to relieve airway inflammation and tighten breathing. - Take the prescribed antibiotic for the small abscesses in your armpit -warm compresses may be helpful documented in this encounter [facility] 01-31-2025 Note HNO ID: [id number] Author: YAMILA LINDSAY APRN.ANNUAL CAMPAIGN MANAGER Service: ? Author Type: Nurse Practitioner Type: Progress Notes Filed: 01/31/2025 14:23 Note Text: [facility] Subjective Genesis Klein is a 39 year old female. Patient presents with: Cough: Chest congestion, Shortness of Breath, wheeze, increased mucous, x 1.5 weeks Cough The patient is a 39-year-old female presenting with cough, wheezing, dyspnea, and concerns about armpit lesions. Cough and Dyspnea: - Cough and wheezing with dyspnea, worse at night, waking patient around 03:00-04:00. - Requires inhaler use during nocturnal episodes. - Productive cough, sometimes leading to gagging. - Denies fever or chills. - Using Flonase and inhaler for symptom management. - Recent exposure to allergens, including son's cat and dog. - Started allergy shots 3 weeks ago; missed 1 out of 3 doses. - No formal asthma diagnosis; awaiting primary care appointment in February. - Reports similar symptoms seasonally. Arm Lesions: - Noticed scratches on right armpit area, now presenting as painful nodules. - History of similar lesions due to past substance use. - Attempted to shave around scratches; now avoiding shaving. - Denies medication allergies. Review of Systems Respiratory: Positive for cough. Constitutional: (-) fever, (-) chills Ears/Nose/Mouth/Throat: (+) nasal congestion Cardiovascular: (+) chest pain Respiratory: (+) cough, (+) shortness of breath, (+) sputum production Gastrointestinal: (+) gagging Musculoskeletal: (+) back pain, (+) arm pain Skin: (+) painful arm nodules Objective BP 125/72 Pulse 94 Temp 37.2 ?C (98.9 ?F) Resp 22 Wt 67 kg (147 lb 11.3 oz) LMP 01/24/2025 (Approximate) SpO2 97% BMI 27.46 kg/m? PAST MEDICAL HISTORY Diagnosis Date - Abnormal glandular Papanicolaou smear of cervix Abn. Pap smear (cervix) - Allergic rhinitis, cause unspecified Allergy, airborne subst - Generalized anxiety disorder Anxiety, Generalized - Hepatitis C treated PAST SURGICAL HISTORY Procedure Laterality Date - DELIVERY ONLY , low cervical - COLPOSCOPY CERVIX UPPER/ADJACENT VAGINA Colposcopy - CONIZATION CERVIX W/WO DANDC RPR ELTRD EXC LEEP-Cervix - DILATION AND CURETTAGE DXAND/THER NONOBSTETRIC Dilation AND curettage - INDUCED HX - TONSILLECTOMY PRIMARY/SECONDARY Tonsillectomy ALLERGIES Patient has no known allergies. MEDICATIONS - fluticasone (FLONASE ALLERGY RELIEF) 50 mcg/actuation nasal spray Use 2 sprays in each nostril once daily. - doxycycline monohydrate 100 mg tablet Take 1 tablet by mouth two times a day for 7 days. - albuterol HFA (PROVENTIL HFA, VENTOLIN HFA) 90 mcg/actuation inhaler Inhale 2 puffs as instructed every 6 hours as needed for wheezing/shortness of breath. - predniSONE (DELTASONE) 10 mg tablet Take 4 tablets by mouth once daily for 3 days, THEN 3 tablets once daily for 3 days, THEN 1 tablet once daily for 3 days. FAMILY HISTORY Problem Relation Age of Onset - Hypertension Mother - Thyroid Mother Hypothyroid - Diabetes Mother - GI Father GB - Hypertension Father - Lipids Father - GI Sister GB - No Known Problems Brother - Arthritis Maternal Grandmother - Heart Maternal Grandmother BYPASS SURGERY - Lipids Maternal Grandmother - Thyroid Maternal Grandmother Hypothyroid - Diabetes Maternal Grandmother - COPD Maternal Grandmother - Lung Cancer Maternal Grandmother - Lipids Maternal Grandfather - Heart Paternal Grandmother CA - Lung Cancer Paternal Grandmother - Colon Cancer Paternal Grandfather - Prostate Cancer Paternal Grandfather - Thyroid Other MATERNAL 1ST COUSIN BORN WITHOUT THYROID SOCIAL HISTORY[1] Physical Exam Vitals and nursing note reviewed. Constitutional: General: She is not in acute distress. Appearance: Normal appearance. She is not ill-appearing. HENT: Right Ear: Tympanic membrane, ear canal and external ear normal. Left Ear: Tympanic membrane, ear canal and external ear normal. Nose: Nose normal. Mouth/Throat: Mouth: Mucous membranes are moist. Pharynx: Oropharynx is clear. No oropharyngeal exudate or posterior oropharyngeal erythema. Cardiovascular: Rate and Rhythm: Normal rate and regular rhythm. Heart sounds: Normal heart sounds. Pulmonary: Effort: Pulmonary effort is normal. No respiratory distress. Breath sounds: Examination of the right-upper field reveals wheezing. Examination of the left-upper field reveals wheezing. Examination of the right-lower field reveals wheezing. Examination of the left-lower field reveals wheezing. Wheezing present. No rales. Lymphadenopathy: Cervical: No cervical adenopathy. Skin: General: Skin is warm and dry. Findings: No erythema or rash. Neurological: Mental Status: She is alert. { 1. Viral bronchitis (J20.8) - Likely triggered by allergies; exam notable for wheezing and (more content not included)... [facility] 01-31-2025 History of Presen t illness Narrative Images from the original note were not included. [facility] Subjective Genesis Klien is a 39 year old female. Patient presents with: Cough: Chest congestion, Shortness of Breath, wheeze, increased mucous, x 1.5 weeks Cough The patient is a 39-year-old female presenting with cough, wheezing, dyspnea, and concerns about armpit lesions. Cough and Dyspnea: - Cough and wheezing with dyspnea, worse at night, waking patient around 03:00-04:00. - Requires inhaler use during nocturnal episodes. - Productive cough, sometimes leading to gagging. - Denies fever or chills. - Using Flonase and inhaler for symptom management. - Recent exposure to allergens, including son's cat and dog. - Started allergy shots 3 weeks ago; missed 1 out of 3 doses. - No formal asthma diagnosis; awaiting primary care appointment in February. - Reports similar symptoms seasonally. Arm Lesions: - Noticed scratches on right armpit area, now presenting as painful nodules. - History of similar lesions due to past substance use. - Attempted to shave around scratches; now avoiding shaving. - Denies medication allergies. Review of Systems Respiratory: Positive for cough. Constitutional: (-) fever, (-) chills Ears/Nose/Mouth/Throat: (+) nasal congestion Cardiovascular: (+) chest pain Respiratory: (+) cough, (+) shortness of breath, (+) sputum production Gastrointestinal: (+) gagging Musculoskeletal: (+) back pain, (+) arm pain Skin: (+) painful arm nodules Objective BP 125/72 Pulse 94 Temp 37.2 C (98.9 F) Resp 22 Wt 67 kg (147 lb 11.3 oz) LMP 01/24/2025 (Approximate) SpO2 97% BMI 27.46 kg/m PAST MEDICAL HISTORY Diagnosis Date Abnormal glandular Papanicolaou smear of cervix Abn. Pap smear (cervix) Allergic rhinitis, cause unspecified Allergy, airborne subst Generalized anxiety disorder Anxiety, Generalized Hepatitis C treated PAST SURGICAL HISTORY Procedure Laterality Date DELIVERY ONLY , low cervical COLPOSCOPY CERVIX UPPER/ADJACENT VAGINA Colposcopy CONIZATION CERVIX W/WO D&C RPR ELTRD EXC LEEP-Cervix DILATION & CURETTAGE DX&/THER NONOBSTETRIC Dilation & curettage INDUCED HX TONSILLECTOMY PRIMARY/SECONDARY <AGE 12 Tonsillectomy ALLERGIES Patient has no known allergies. MEDICATIONS fluticasone (FLONASE ALLERGY RELIEF) 50 mcg/actuation nasal spray Use 2 sprays in each nostril once daily. doxycycline monohydrate 100 mg tablet Take 1 tablet by mouth two times a day for 7 days. albuterol HFA (PROVENTIL HFA, VENTOLIN HFA) 90 mcg/actuation inhaler Inhale 2 puffs as instructed every 6 hours as needed for wheezing/shortness of breath. predniSONE (DELTASONE) 10 mg tablet Take 4 tablets by mouth once daily for 3 days, THEN 3 tablets once daily for 3 days, THEN 1 tablet once daily for 3 days. FAMILY HISTORY Problem Relation Age of Onset Hypertension Mother Thyroid Mother Hypothyroid Diabetes Mother GI Father GB Hypertension Father Lipids Father GI Sister GB No Known Problems Brother Arthritis Maternal Grandmother Heart Maternal Grandmother BYPASS SURGERY Lipids Maternal Grandmother Thyroid Maternal Grandmother Hypothyroid Diabetes Maternal Grandmother COPD Maternal Grandmother Lung Cancer Maternal Grandmother Lipids Maternal Grandfather Heart Paternal Grandmother CA Lung Cancer Paternal Grandmother Colon Cancer Paternal Grandfather Prostate Cancer Paternal Grandfather Thyroid Other MATERNAL 1ST COUSIN BORN WITHOUT THYROID SOCIAL HISTORY[1] Physical Exam Vitals and nursing note reviewed. Constitutional: General: She is not in acute distress. Appearance: Normal appearance. She is not ill-appearing. HENT: Right Ear: Tympanic membrane, ear canal and external ear normal. Left Ear: Tympanic membrane, ear canal and external ear normal. Nose: Nose normal. Mouth/Throat: Mouth: Mucous membranes are moist. Pharynx: Oropharynx is clear. No oropharyngeal exudate or posterior oropharyngeal erythema. Cardiovascular: Rate and Rhythm: Normal rate and regular rhythm. Heart sounds: Normal heart sounds. Pulmonary: Effort: Pulmonary effort is normal. No respiratory distress. Breath sounds: Examination of the right-upper field reveals wheezing. Examination of the left-upper field reveals wheezing. Examination of the right-lower field reveals wheezing. Examination of the left-lower field reveals wheezing. Wheezing present. No rales. Lymphadenopathy: Cervical: No cervical adenopathy. Skin: General: Skin is warm and dry. Findings: No erythema or rash. Neurological: Mental Status: She is alert. { 1. Viral bronchitis (J20.8) - Likely triggered by allergies; exam notable for wheezing and inflammation. - Start prednisone. - Refill inhaler. - Educated on difference between bronchodilator and anti-inflammatory medications; advised to take prednisone as soon as possible and not immediately before bed. - Discussed that asthma diagnosis requires pulmonary function testing, which can be ordered by primary care provider. 2. Folliculitis (L73.9) - Start antibiotic. - warm compresses may be helpful - Follow-up with your PCP in 3-5 days if symptoms have not improved or sooner if symptoms worsen - Discussed red flags and need for immediate medical evaluation if any occur. - Discussed supportive care treatment with fluids, rest and analgesia. - Discussed expected course of illness Yamila Lindsay APRN.ANNUAL CAMPAIGN MANAGER and Recording using [employer] software for draft documentation of the visit was discussed with the patient/authorized signs sales representative; all questions welcomed and answered. Patient/authorized signs sales representative agreed to proceed Disposition The patient was discharged. Procedures [1] Social History Tobacco Use Smoking status: Some Days Current packs/day: 1.00 Types: Cigarettes Smokeless tobacco: Never Vaping Use Vaping status: current everyday user Substances: Nicotine Substance Use Topics Alcohol use: Not Currently Comment: Occasionally Drug use: Not Currently Types: Cocaine, Crystal Meth, Heroin, IV, Marijuana, Opiates documented in this encounter [facility] 12-22-2024 History of Presen t illness Narrative [employer] Consultant offered: Patient declines. Genesis is a 39 year old who presents for an annual gynecologic exam without complaints. Hepatitis C Exposure: - Patient was treated and cured of hepatitis C a few years ago. - Reports a relapse in April and is concerned about potential re-exposure. - Had testing done at a free clinic about 60 days after the relapse, which was negative. - Requests retesting for hepatitis C and other STDs to ensure no re-exposure. Menses: cycles every 28 days and 4-5 days of flow Sexually active: Yes Contraception: Tubal Ligation HPV: 11/12/2023 other HR positive Last pap smear: 11/12/2023 ASCUS positive. Colposcopy benign. Prior treatment: LEEP History of abnormal pap: Yes [facility] History Gravida4 Para3 Term1 Preterm1 AB1 Living3 SAB0 IAB1 Ectopic0 Multiple0 Live Births3 Cable Respooler History LMP: 12/02/2024 (Approximate), Having periods Age at Menarche: 12 Age at First : Age at Menopause: Cable Respooler History Comments: Sexual Activity: Yes; Male Contraception: Tubal Ligation Menstrual Tracking History Flowsheet Row Appointment from 11/11/2024 in OB/Gynecology Period Cycle (Days) 28 Period Duration (Days) 4 Menstrual Flow Moderate PAST MEDICAL HISTORY Diagnosis Date Abnormal glandular Papanicolaou smear of cervix Abn. Pap smear (cervix) Allergic rhinitis, cause unspecified Allergy, airborne subst Generalized anxiety disorder Anxiety, Generalized Hepatitis C treated PAST SURGICAL HISTORY Procedure Laterality Date DELIVERY [...] Grandmother Lipids Maternal Grandfather Heart Paternal Grandmother CA Lung Cancer Paternal Grandmother Colon Cancer Paternal Grandfather Prostate Cancer Paternal Grandfather Thyroid Other MATERNAL 1ST COUSIN BORN WITHOUT THYROID SOCIAL HISTORY Social History Tobacco Use Smoking status: Some Days Current packs/day: 1.00 Types: Cigarettes Smokeless tobacco: Never Vaping Use Vaping status: current everyday user Substances: Nicotine Substance Use Topics Alcohol use: Not Currently [...] skin retraction. Allergies and current medication updated:Yes SENSITIVE EXAM: The sensitive examination was discussed with the Patient or Patient's Authorized Airline Mechanic. As applicable, any other physician, advance practice provider, medical student, or other health professional student that will be observing or involved in the sensitive examination for educational or training purposes was discussed with the Patient or Authorized Airline Mechanic. The Patient or Authorized Airline Mechanic has agreed to proceed with the sensitive examination. (Sensitive examination includes inspection and/or palpation of the breasts, pelvis, prostate and anorectal regions). EXAM: BP 108/72 Ht 5' 1.5 (1.56m) Wt 146 lb (66.2kg) LMP 12/02/2024 BMI 27.14 kg/(m^2). GENERAL: pleasant, female in no apparent [...] external genitalia normal, normal Bartholin's glands, urethra, Opal's glands, no vulvar lesions, no cervical lesions, good vaginal support, physiologic discharge present, normal appearing perineal body and perianal region BIMANUAL: uterus normal size, shape and consistency, no adnexal masses, and non-tender RECTOVAGINAL: deferred. NEURO: alert and oriented x3,exam grossly non-focal EXTREMITIES: normal ASSESSMENT/PLAN: 1) Health maintenance: Pap done with HPV. Mammogram ordered. Nutrition, exercise and routine health maintenance exams reviewed. Smoking cessation: Benefits of smoking cessation reviewed. Patient encouraged to avoid smoking. 2) Contraception: tubal sterilization. Contraceptive options reviewed and information provided. 3) STD screening: Accepts full STI screeening including HIV, Syphilis and T Vaginalis. 4) Follow up one year or sooner as needed Amanda De La Vega APRN.ANNUAL CAMPAIGN MANAGER documented in this encounter [facility] 12-22-2024 Note HNO ID: [id number] Author: AMANDA DE LA VEGA APRN.ANNUAL CAMPAIGN MANAGER Service: ? Author Type: Nurse Practitioner Type: Progress Notes Filed: 12/22/2024 15:24 Note Text: [employer] Consultant offered: Patient declines. Genesis is a 39 year old who presents for an annual gynecologic exam without complaints. Hepatitis C Exposure: - Patient was treated and cured of hepatitis C a few years ago. - Reports a relapse in April and is concerned about potential re-exposure. - [facility] relapse, which was negative. - Requests retesting for hepatitis C and other STDs to ensure no re-exposure. Menses: cycles every 28 days and 4-5 days of flow Sexually active: Yes Contraception: Tubal Ligation HPV: 11/12/2023 other HR positive Last pap smear: 11/12/2023 ASCUS positive. Colposcopy benign. Prior treatment: LEEP History of abnormal pap: Yes Last mamm[facility]: [facility] History Gravida4 Para3 Term1 Preterm1 AB1 Living3 SAB0 IAB1 Ectopic0 Multiple0 Live Births3 Cable Respooler History LMP: 12/02/2024 (Approximate), Having periods Age at Menarche: 12 Age at First : Age at Menopause: Cable Respooler History Comments: Sexual Activity: Yes; Male Contraception: Tubal Ligation Menstrual Tracking History Flowsheet Row Appointment from 11/11/2024 in OB/Gynecology Period Cycle (Days) 28 Period Duration (Days) 4 Menstrual Flow Moderate PAST MEDICAL HISTORY Diagnosis Date Abnormal glandular Papanicolaou smear of cervix Abn. Pap smear (cervix) Allergic rhinitis, cause unspecified Allergy, airborne subst Generalized anxiety disorder Anxiety, Generalized Hepatitis C treated PAST SURGICAL HISTORY Procedure Laterality Date DELIVERY [...] Grandmother Lipids Maternal Grandfather Heart Paternal Grandmother CA Lung Cancer Paternal Grandmother Colon Cancer Paternal Grandfather Prostate Cancer Paternal Grandfather Thyroid Other MATERNAL 1ST COUSIN BORN WITHOUT THYROID SOCIAL HISTORY Social History Tobacco Use Smoking status: Some Days Current packs/day: 1.00 Types: Cigarettes Smokeless tobacco: Never Vaping Use Vaping status: current everyday user Substances: Nicotine Substance Use Topics Alcohol use: Not Currently [...] skin retraction. Allergies and current medication updated:Yes SENSITIVE EXAM: The sensitive examination was discussed with the Patient or Patient's Authorized Airline Mechanic. As applicable, any other physician, advance practice provider, medical student, or other health professional student that will be observing or involved in the sensitive examination for educational or training purposes was discussed with the Patient or Authorized Airline Mechanic. The Patient or Authorized Airline Mechanic has agreed to proceed with the sensitive examination. (Sensitive examination includes inspection and/or palpation of the breasts, pelvis, prostate and anorectal regions). EXAM: BP 108/72 Ht 5' 1.5 (1.56m) Wt 146 lb (66.2kg) LMP 12/02/2024 BMI 27.14 kg/(m2). GENERAL: pleasant, female in no apparent [...] external genitalia normal, normal Bartholin's glands, urethra, Opal's glands, no vulvar lesions, no cervical lesions, good vaginal support, physiologic discharge present, normal appearing perineal body and perianal region (more content not included)... [facility] 09-03-2024 History of Presen t illness Narrative [...] Grandmother Lipids Maternal Grandfather Heart Paternal Grandmother CA Lung Cancer Paternal Grandmother Colon Cancer Paternal [...] of care. This note was generated using [employer] software. It may contain errors in wording, punctuation, or spelling. Marco Antonio Ardon APRN.ANATOLY documented in this encounter [facility] 09-03-2024 Note HNO ID: [id number] Author: MARCO ANTONIO ARDON APRN.ANATOLY Service: ? [...] Grandmother Lipids Maternal Grandfather Heart Paternal Grandmother CA Lung Cancer Paternal Grandmother Colon Cancer Paternal [...] - ICD9: 786 (more content not included)... [facility] 05-12-2024 Telephone encounter Note Name of caller: Genesis Bradford Contact phone number: [phone] Relationship to Patient: patient Provider: Dr. Miya Oconnell Practice: [facility] Chief Complaint/Reason for Call: Pt request a [...] business hours to return their call: Yes [facility] 05-12-2024 Miscellaneous Notes Name of caller: Genesis Bradford Contact phone number: [phone] Relationship to Patient: patient Provider: Dr. Miya Oconnell Practice: [facility] Chief Complaint/Reason for Call: Pt request a [...] their call: Yes documented in this encounter [facility] 05-11-2024 History of Presen t illness Narrative [...] stated that they are currently in the [facility]. If the patient is a minor, permission [...] Strain: Not on File (05/14/2023) Received from [employer] Resource Strain Financial Resource Strain: 0 Food Insecurity: Not on File (02/18/2024) Received from [employer] Food Insecurity Food: 0 Transportation Needs: Not on File (05/14/2023) Received from [employer] Transportation Needs Transportation: 0 Physical Activity: Not on File (05/14/2023) Received from [employer] Physical Activity Physical Activity: 0 Stress: Not on File (05/14/2023) Received from [employer] Stress Stress: 0 Social Connections: Not on File (02/17/2024) Received from [employer] Social Connections Connectedness: 0 Intimate Partner Violence: Not on file Housing Stability: Not on File (05/14/2023) Received from [employer] Housing Stability Housin No family history on [...] 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 5. Keep medicine out [...] weeks (around 06/08/2024). documented in this encounter [facility] 05-10-2024 History of Presen t illness Narrative [...] PATIENT PRESENTS WITH AN IMPLANTABLE OR ATTACHED SAND CUTTING MACHINE OPERATOR: No RADIOLOGY DEPARTMENT: General X-ray: Exam(s) Completed: Chest X-Ray PERIPHERAL IV DATA: Not applicable SIGNED BY: RT Christoph(David) May 10, 2024 3:17 PM documented in this encounter [facility] 05-10-2024 Note HNO ID: [id number] Author: LARA BATES RT(David) Service: ? Author Type: A P Supervisor Type: Progress Notes Filed: 05/10/2024 15:23 Note [...] PATIENT PRESENTS WITH AN IMPLANTABLE OR ATTACHED SAND CUTTING MACHINE OPERATOR: No RADIOLOGY DEPARTMENT: General X-ray: Exam(s) Completed: Chest X-Ray PERIPHERAL IV DATA: Not applicable SIGNED BY: RT Christoph(R) May 10, 2024 3:17 PM [facility] 05-10-2024 Note HNO ID: [id number] Author: MAURA HARRY APRN.ANNUAL CAMPAIGN MANAGER Service: ? Author Type: Nurse Practitioner Type: [...] Grandmother Lipids Maternal Grandfather Heart Paternal Grandmother CA Lung Cancer Paternal Grandmother Colon Cancer Paternal [...] Unremarkable. IMPRESSION IMPRESSION: No acute radiographic abnormality. Vacuum Pan Tender: LINNETTE Transcribe Date/Time: May 10 2024 3:24P Dictated by : SALMA SINCLAIR MD Medrol dose pack for the cough . Potential red flag symptoms discussed with the patient. Reviewed appropriate action plan to take if red flag symptoms occur. Patient agreeable to treatment plan. Maura Harry APRN.[facility] 05-10-2024 History of Presen t [...] Grandmother Lipids Maternal Grandfather Heart Paternal Grandmother CA Lung Cancer Paternal Grandmother Colon Cancer Paternal [...] Unremarkable. IMPRESSION IMPRESSION: No acute radiographic abnormality. Vacuum Pan Tender: LINNETTE Transcribe Date/Time: May 10 2024 3:24P Dictated by : SALMA SINCLAIR MD Medrol dose pack for the cough . Potential red flag symptoms discussed with the patient. Reviewed appropriate action plan to take if red flag symptoms occur. Patient agreeable to treatment plan. Maura Harry APRN.ANNUAL CAMPAIGN MANAGER documented in this encounter [facility] 05-09-2024 Telephone encounter Note Reviewed chart and exam Reached out, No answer. VM message left Patient can take the Doxy as prescribed Follow up with PCP [facility] Work Phone: 05-09-2024 Miscellaneous Notes Reviewed chart [...] Please advise pt. documented in this encounter [facility] 05-09-2024 Telephone encounter Note Pt reports she was prescribed doxycycline in [facility], and reports the reading on the Rx states talk to your doctor if you have hx of liver disease. Reports she has hx of hep C and hep A. 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 Please advise pt. [facility] 05-07-2024 Note HNO ID: [id number] Author: MAURA HARRY APRN.ANNUAL CAMPAIGN MANAGER Service: ? Author Type: Nurse Practitioner Type: [...] Grandmother Lipids Maternal Grandfather Heart Paternal Grandmother CA Lung Cancer Paternal Grandmother Colon Cancer Paternal [...] Patient agreeable to treatment plan. Maura Harry APRN.[facility] 05-07-2024 History of Presen t [...] Grandmother Lipids Maternal Grandfather Heart Paternal Grandmother CA Lung Cancer Paternal Grandmother Colon Cancer Paternal [...] Patient agreeable to treatment plan. Maura Harry APRN.ANNUAL CAMPAIGN MANAGER documented in this encounter [facility] 04-13-2024 History of Presen t illness Narrative [...] stated that they are currently in the [facility]. If the patient is a minor, permission has been obtained by the parent or guardian for the patient to receive medical care at this visit. HPI: Genesis Bradford, a 38 y.o. female, who returns for a follow-up MAT appointment. UDS9/--ordered OARRS ok In good spirits Very busy [...] Strain: Not on File (05/14/2023) Received from [employer] Strain Financial Resource Strain: 0 Food Insecurity: Not on File (02/18/2024) Received from [employer] Food Insecurity Food: 0 Transportation Needs: Not on File (05/14/2023) Received from [employer] Transportation Needs Transportation: 0 Physical Activity: Not on File (05/14/2023) Received from [employer] Physical Activity Physical Activity: 0 Stress: Not on File (05/14/2023) Received from [employer] Stress Stress: 0 Social Connections: Not on File (02/17/2024) Received from [employer] Social Connections Connectedness: 0 Intimate Partner Violence: Not on file Housing Stability: Not on File (05/14/2023) Received from [employer] Housing Stability Housin No family history on [...] 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 5. Keep medicine out [...] weeks (around 05/11/2024). documented in this encounter [facility] 04-06-2024 Telephone encounter Note Pt was notified of results & instructions, pt voiced understanding. Roberta Ferrer LPN [facility] 04-06-2024 Miscellaneous Notes Pt was notified of results & instructions, pt voiced understanding. Roberta Ferrer LPN phone busy. Olga Lidia Kerr MA Please inform patient that positive for vaginosis bacterial vaginosis. Medication sent to [facility] Other vaginal swabs and blood work are pending. Marco Antonio Ardon APRN.CNP documented in this encounter [facility] 04-06-2024 Telephone encounter Note phone busy. Olga Lidia Kerr MA [facility] 04-06-2024 Telephone encounter Note Please inform patient that positive for vaginosis bacterial vaginosis. Medication sent to [facility] Other vaginal swabs and blood work are pending. Marco Antonio Ardon APRN.ANNUAL CAMPAIGN MANAGER [facility] 04-05-2024 Note HNO ID: [id number] Author: GEENA RANGEL PA Service: ? Author Type: Physician Real Estate Sales Associate Type: Progress Notes Filed: 04/05/2024 19:27 Note Text: This note was created using [employer]ogn[employer]. Subjective Genesis Bradford is a 38 year [...] Grandmother Lipids Maternal Grandfather Heart Paternal Grandmother CA Lung Cancer Paternal Grandmother Colon Cancer Paternal [...] nursing note reviewed. Exam conducted with a early childhood education worker present. Constitutional: General: She is not in [...] diarrhea - ICD9 (more content not included)... [facility] 04-05-2024 History of Presen t illness Narrative This note was created using [employer]ogn[employer]. Subjective Genesis Bradford is a 38 year [...] Grandmother Lipids Maternal Grandfather Heart Paternal Grandmother CA Lung Cancer Paternal Grandmother Colon Cancer Paternal [...] nursing note reviewed. Exam conducted with a early childhood education worker present. Constitutional: General: She is not in [...] evaluation. MARY Copeland documented in this encounter [facility] 03-16-2024 History of Presen t illness Narrative [...] stated that they are currently in the [facility]. If the patient is a minor, permission [...] Strain: Not on File (05/14/2023) Received from [employer] Strain Financial Resource Strain: 0 Food Insecurity: Not on File (02/18/2024) Received from [employer] Food Insecurity Food: 0 Transportation Needs: Not on File (05/14/2023) Received from [employer] Transportation Needs Transportation: 0 Physical Activity: Not on File (05/14/2023) Received from [employer] Physical Activity Physical Activity: 0 Stress: Not on File (05/14/2023) Received from [employer] Stress Stress: 0 Social Connections: Not on File (02/17/2024) Received from [employer] Social Connections Connectedness: 0 Intimate Partner Violence: Not on file Housing Stability: Not on File (05/14/2023) Received from [employer] Housing Stability Housin No family history on [...] 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 5. Keep medicine out [...] weeks (around 04/13/2024). documented in this encounter [facility] 02-17-2024 History of Presen t illness Narrative [...] stated that they are currently in the [facility]. If the patient is a minor, permission [...] Strain: Not on File (05/14/2023) Received from [employer] Strain Financial Resource Strain: 0 Food Insecurity: Not on file (02/01/2024) Transportation Needs: Not on File (05/14/2023) Received from [employer] Transportation Needs Transportation: 0 Physical Activity: Not on File (05/14/2023) Received from [employer] Physical Activity Physical Activity: 0 Stress: Not on File (05/14/2023) Received from [employer] Stress Stress: 0 Social Connections: Not on File (05/14/2023) Received from [employer] Social Connections Social Connections and Isolation: 0 Intimate Partner Violence: Not on file Housing Stability: Not on File (05/14/2023) Received from [employer] Housing Stability Housin No family history on [...] 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 5. Keep medicine out [...] weeks (around 03/16/2024). documented in this encounter [facility] 02-02-2024 History of Presen t illness Narrative [...] that they are currently in the state [facility]. If the patient is a minor, permission has been obtained by the parent or guardian for the patient to receive medical care at this visit. HPI: Genesis Bradford, a 38 y.o. female, who returns for a follow-up MAT appointment. 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 Seeing both POs Cravings : denied Sleep: [...] Strain: Not on File (05/14/2023) Received from [employer] Strain Financial Resource Strain: 0 Food Insecurity: Not on file (02/01/2024) Transportation Needs: Not on File (05/14/2023) Received from [employer] Transportation Needs Transportation: 0 Physical Activity: Not on File (05/14/2023) Received from [employer] Physical Activity Physical Activity: 0 Stress: Not on File (05/14/2023) Received from [employer] Stress Stress: 0 Social Connections: Not on File (05/14/2023) Received from [employer] Social Connections Social Connections and Isolation: 0 Intimate Partner Violence: Not on file Housing Stability: Not on File (05/14/2023) Received from [employer] Housing Stability Housin No family history on [...] 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 5. Keep medicine out [...] weeks (around 02/16/2024). documented in this encounter [facility] 01-19-2024 History of Presen t illness Narrative [...] stated that they are currently in the [facility]. If the patient is a minor, permission has been obtained by the parent or guardian for the patient to receive medical care at this visit. HPI: Genesis Bradford, a 38 y.o. female, who returns for a follow-up MAT appointment. UDS 12/07 ok--UDS 01/17 Buprenorphine negative OARRS ok In good spirits Staying clean Going to work Started another job at [employer] Cravings : denied Sleep: denied Anxiety: denied [...] Strain: Not on File (05/14/2023) Received from [employer] Strain Financial Resource Strain: 0 Food Insecurity: Not on File (05/14/2023) Received from [employer] Food Insecurity Food: 0 Transportation Needs: Not on File (05/14/2023) Received from [employer] Transportation Needs Transportation: 0 Physical Activity: Not on File (05/14/2023) Received from [employer] Physical Activity Physical Activity: 0 Stress: Not on File (05/14/2023) Received from [employer] Stress Stress: 0 Social Connections: Not on File (05/14/2023) Received from [employer] Social Connections Social Connections and Isolation: 0 Intimate Partner Violence: Not on file Housing Stability: Not on File (05/14/2023) Received from [employer] Housing Stability Housin No family history on [...] 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 5. Keep medicine out [...] weeks (around 02/02/2024). documented in this encounter [facility] 01-19-2024 Telephone encounter Note Recent results, routed to you [facility] 01-19-2024 Miscellaneous Notes Recent results, routed to you Name of caller: Genesis Contact phone number: [phone] Relationship to Patient: patient Provider: Dr Oconnell [...] their call: Yes documented in this encounter [facility] 01-18-2024 Telephone encounter Note Name of caller: Genesis Contact phone number: [phone] Relationship to Patient: patient Provider: Dr Oconnell Practice: [facility] Chief Complaint/Reason for Call: pt is calling [...] business hours to return their call: Yes [facility] 01-05-2024 History of Presen t illness Narrative [...] that they are currently in the state [facility]. If the patient is a minor, permission has been obtained by the parent or guardian for the patient to receive medical care at this visit. HPI: Genesis Bradford, a 38 y.o. female, who returns for a follow-up MAT appointment. UDS 12/07 ok--ordered OARRS ok Working at [employer]--starts fulltime Sees PO every 2 weeks All [...] Strain: Not on File (05/14/2023) Received from [employer] Strain Financial Resource Strain: 0 Food Insecurity: Not on File (05/14/2023) Received from [employer] Food Insecurity Food: 0 Transportation Needs: Not on File (05/14/2023) Received from [employer] Transportation Needs Transportation: 0 Physical Activity: Not on File (05/14/2023) Received from [employer] Physical Activity Physical Activity: 0 Stress: Not on File (05/14/2023) Received from [employer] Stress Stress: 0 Social Connections: Not on File (05/14/2023) Received from [employer] Social Connections and Isolation: 0 Intimate Partner Violence: Not on file Housing Stability: Not on File (05/14/2023) Received from [employer] Housing Stability Housin No family history on [...] 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 5. Keep medicine out [...] weeks (around 01/19/2024). documented in this encounter [facility] 01-04-2024 History of Presen t illness Narrative [...] she will consider requests STi screen Rena Alfonso MD documented in this encounter [facility] 01-04-2024 Instructions Rena Alfonso MD - 01/04/2024 1:29 PM EDT Gardasil [...] glands, joint and muscle pain, weakness and Guillain-Salem syndrome. YOUR RECOVERY It may take a [...] your doctor's office. documented in this encounter [facility] 12-22-2023 History of Presen t illness Narrative [...] stated that they are currently in the [facility]. If the patient is a minor, permission [...] Strain: Not on File (05/14/2023) Received from [employer] Strain Financial Resource Strain: 0 Food Insecurity: Not on File (05/14/2023) Received from [employer] Food Insecurity Food: 0 Transportation Needs: Not on File (05/14/2023) Received from [employer] Transportation Needs Transportation: 0 Physical Activity: Not on File (05/14/2023) Received from [employer] Physical Activity Physical Activity: 0 Stress: Not on File (05/14/2023) Received from [employer] Stress Stress: 0 Social Connections: Not on File (05/14/2023) Received from [employer] Social Connections and Isolation: 0 Intimate Partner Violence: Not on file Housing Stability: Not on File (05/14/2023) Received from [employer] Housing Stability Housin No family history on [...] 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 5. Keep medicine out [...] weeks (around 01/05/2024). documented in this encounter [facility] 12-08-2023 History of Presen t illness Narrative [...] Strain: Not on File (05/14/2023) Received from [employer] Strain Financial Resource Strain: 0 Food Insecurity: Not on File (05/14/2023) Received from [employer] Food Insecurity Food: 0 Transportation Needs: Not on File (05/14/2023) Received from [employer] Transportation Needs Transportation: 0 Physical Activity: Not on File (05/14/2023) Received from [employer] Physical Activity Physical Activity: 0 Stress: Not on File (05/14/2023) Received from [employer] Stress Stress: 0 Social Connections: Not on File (05/14/2023) Received from [employer] Social Connections Social Connections and Isolation: 0 Intimate Partner Violence: Not on file Housing Stability: Not on File (05/14/2023) Received from [employer] Housing Stability Housin No family history on [...] 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 5. Keep medicine out [...] weeks (around 12/22/2023). documented in this encounter [facility] 11-30-2023 Telephone encounter Note Pt returned call and was given results and assisted to schedule colposcopy. Sandy Cortez LPN [facility] 11-30-2023 Miscellaneous Notes Pt returned call and was given results and assisted to schedule colposcopy. Sandy Cortez LPN Called and patient answered. States she will have to call back to discuss results. She is unaware of result at this time yet. Mychart message also sent. Sue Cotter RN Pap ASCUS and HPV+, she will need a colp done. Talia Brito APRN.CNP documented in this encounter [facility] 11-30-2023 Telephone encounter Note Called and patient answered. States she will have to call back to discuss results. She is unaware of result at this time yet. Mychart message also sent. Sue Cotter RN [facility] 11-30-2023 Telephone encounter Note Pap ASCUS and HPV+, she will need a colp done. Talia Brito APRN.CNP [facility] 11-18-2023 History of Presen t illness Narrative [...] did provide verification of her treatment at [facility]. She was admitted to their program April 29 and discharged on October 06. She continues in counseling at [facility] She is currently living with her parents. She is attending [employer]. There are legal issues pending with [facility]-she is currently on probation. At this point [...] Strain: Not on File (05/14/2023) Received from [employer] Strain Financial Resource Strain: 0 Food Insecurity: Not on File (05/14/2023) Received from [employer] Food Insecurity Food: 0 Transportation Needs: Not on File (05/14/2023) Received from [employer] Transportation Needs Transportation: 0 Physical Activity: Not on File (05/14/2023) Received from [employer] Physical Activity Physical Activity: 0 Stress: Not on File (05/14/2023) Received from [employer] Stress Stress: 0 Social Connections: Not on File (05/14/2023) Received from [employer] Social Connections Social Connections and Isolation: 0 Intimate Partner Violence: Not on file Housing Stability: Not on File (05/14/2023) Received from [employer] Housing Stability Housin No family history on [...] 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 5. Keep medicine out [...] weeks (around 12/02/2023). documented in this encounter [facility] 11-12-2023 History of Presen t illness Narrative [employer] Consultant offered: Patient declinesDelores Hurtado is a 38 [...] L3 SAB0 IAB1 Ectopic0 Multiple0 Live Births3 Cable Respooler History LMP: 10/27/2023, Having periods Age at Menarche: Age at First : Age at Menopause: Cable Respooler History Comments: Sexual Activity: Yes; Male Contraception: [...] Grandmother Lipids Maternal Grandfather Heart Paternal Grandmother CA Lung Cancer Paternal Grandmother Colon Cancer Paternal [...] external genitalia normal, normal Bartholin's glands, urethra, Opal's glands, no vulvar lesions, no cervical lesions, [...] one year or sooner as needed 5) HgbAlc ordered- shai has a dx of diabetes on her record but pt states she has never been dx w/ that. Reorder her meds, she is trying to find a new PCP Talia Brito APRN.ANNUAL CAMPAIGN MANAGER documented in this encounter [facility] 11-11-2023 History of Presen t illness Narrative [...] patient is a 38-year-old female presenting to [facility] for treatment of opiate dependence, stimulant abuse [...] this occurred, she engaged in treatment at [facility] and claims that she completed their program and continues with aftercare with this program. We are in process of trying to obtain information to confirm this. Since leaving [facility], she has not been able to find [...] I have elected to obtain information from [facility] to confirm her engagement in treatment. Urine [...] Strain: Not on File (05/14/2023) Received from [employer] Strain Financial Resource Strain: 0 Food Insecurity: Not on File (05/14/2023) Received from [employer] Food Insecurity Food: 0 Transportation Needs: Not on File (05/14/2023) Received from [employer] Transportation Needs Transportation: 0 Physical Activity: Not on File (05/14/2023) Received from [employer] Physical Activity Physical Activity: 0 Stress: Not on File (05/14/2023) Received from [employer] Stress Stress: 0 Social Connections: Not on File (05/14/2023) Received from [employer] Social Connections and Isolation: 0 Intimate Partner Violence: Not on file Housing Stability: Not on File (05/14/2023) Received from [employer] No family history on file. 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 5. Keep medicine out [...] week (around 11/18/2023). documented in this encounter [facility] 10-06-2022 History of Presen t illness Narrative [...] external genitalia normal, normal Bartholin's glands, urethra, Opal's glands, no vulvar lesions, no cervical lesions, [...] results- okay to leave a voicemessage Talia Brito APRN.CNP Medical Decision Making: Problems: Moderate: New problem with uncertain prognosis Data: Unique test(s) ordered: 3+ Risk: Low: Low risk from testing/treatment Medical Decision Making Level: 4 - Moderate documented in this encounter [facility] 06-23-2022 Miscellaneous Notes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 Medicine 08/06/21 Sanju An, DO [address] [place] [address] PCP Resident Internal Medicine 08/06/21 Bench Assembly Inspector Relationship Specialty Start Date End Date Osmani Barrow MD [address] [place] [address] [place] [address] PCP - General Internal Medicine 08/06/21 Sanju An, [address] [place] [address] PCP Resident Internal Medicine 08/06/21 Team Status: [...] Dr. Marlena Crisostomo DO Other Provider Active Bench Assembly Inspector Relationship Specialty Start Date End Date Osmani Barrow MD [address] [place] [address] PCP - General Internal Medicine 08/06/21 Sanju An DO [address] [place] [address] PCP Resident Internal Medicine 08/06/21 Bench Assembly Inspector Relationship Specialty Start Date End Date Diego Sanchez DO [address] [place] [address] PCP - General Internal Medicine 09/24/22 Sanju An DO [address] [place] [address] PCP Resident Internal Medicine 08/06/21 Team Status: Inactive Member Role Status Dates No Primary Care Physician Primary Care Provider Active Dr. Carmen Fletcher , DO Emergency Provider Active Team Status: Inactive Member Role Status Dates No Primary Care Physician Primary Care Provider Active Dr. Carmen Fletcher , DO Attending Provider, Emergency P joe Active Team Status: Inactive Member Role Status Dates No Primary Care Physician Primary Care Provider Active Dr. Osmani Feldman , DO Emergency Provider Active Bench Assembly Inspector Relationship Specialty Start Date End Date Diego Sanchez DO [address] [place], [place] [id number] PCP - General Internal Medicine 09/24/22 Sanju An DO [address] [address] [place], [place] [id number] PCP Resident Internal Medicine 08/06/21 Bench Assembly Inspector Relationship Specialty Start Date End Date Diego Sanchez DO [address] [place], [place] [id number] PCP - General Internal Medicine 09/24/22 Gustavo Luke MD [address] [place] [address] [place], [place] [id number] PCP Resident Internal Medicine 11/23/23 Bench Assembly Inspector Relationship Specialty Start Date End Date Diego Sanchez DO [address] [address] [place], [place] [phone] PCP - General Internal Medicine 09/24/22 Gustavo Luke MD [address] [address] [place], [place] [id number] PCP Resident Internal Medicine 11/23/23 Bench Assembly Inspector Relationship Specialty Start Date End Date Diego Sanchez DO [address] [place], [place] [phone] PCP - General Internal Medicine 09/24/22 Gustavo Luke MD [address] [address] [place], [place] [id number] PCP Resident Internal Medicine 11/23/23 Bench Assembly Inspector Relationship Specialty Start Date End Date Diego Sanchez DO [address] [address] [place], [place] [id number] PCP - General Internal Medicine 09/24/22 Gustavo Luke MD [address] [address] [place], [place] [id number] PCP Resident Internal Medicine 11/23/23 Bench Assembly Inspector Relationship Specialty Start Date End Date Gustavo Luke MD [address] [address] [place], [place] [id number] PCP Resident Internal Medicine 11/23/23 Bench Assembly Inspector Relationship Specialty Start Date End Date Gustavo Luke MD [address] [address] [place], [place] [id number] PCP Resident Internal Medicine 11/23/23 Bench Assembly Inspector Relationship Specialty Start Date End Date Gustavo Luke MD [address] [address] [place], [place] [id number] PCP Resident Internal Medicine 11/23/23 Bench Assembly Inspector Relationship Specialty Start Date End Date Gustavo Luke MD [address] [address] [place], [place] [id number] PCP Resident Internal Medicine 11/23/23 Team Status: Active Member Role Status Dates Aruna García VSStevan, [employer] SCM CONSULTANT-C Primary Care Provider Activ e Team Status: Inactive Member Role Status Dates Aruna FLOREZC, [employer]ACLE SCM CONSULTANT-C Primary Care Provider Activ e Start: July 07, 2024 End: July 07, 2024 Aruna García JEANETTE, [employer]ACLE SCM CONSULTANT-C Attending Provider Active Start: July 07, 2024 End: July 07, 2024 Team Status: Inactive Member Role Status Dates Aruna García VSC, ORACLE SCM CONSULTANT-C Primary Care Provider Activ e Start: August 11, 2024 End: August 11, 2024 Aruna Ricky REID, [employer]ACLE SCM CONSULTANT-C Attending Provider Active Start: August 11, 2024 End: August 11, 2024 Aruna Ricky REID, ORACLE SCM CONSULTANT-C Referring Provider Active Start: August 11, 2024 End: August 11, 2024 Bench Assembly Inspector Relationship Specialty Start Date End Date Gustavo Luke MD [address] [place], [place] [id number] PCP Resident Internal Medicine 11/23/23 Team Status: Active Member Role Status Dates No Primary Care Physician Primary Care Provider Active Team Status: Inactive Member Role Status Dates Dr. Christopher Fenton , DO Emergency Provider Active Start: November 07, 2024 End: November 08, 2024 No Primary Care Physician Primary Care Provider Active Start: November 07, 2024 End: November 08, 2024 Bench Assembly Inspector Relationship Specialty Start Date End Date Gustavo Luke MD [address] [place], [place] [id number] PCP Resident Internal Medicine 11/23/23 Bench Assembly Inspector Relationship Specialty Start Date End Date Gustavo Luke MD [address] [place] [address] PCP Resident Internal Medicine 11/23/23 Ordered Prescriptions [...] refused) 08 (Given - Provider: Kath Finnegan RN)1399 (Due)2099 (Due) cloNIDine (CATAPRES) tablet 0.1 mg 0.1 mg, Oral, 3 TIMES DAILY, First dose on Thu09/13/21 at 2100, Until Discontinued, Hold for a systolic BP of 100 or below 2105 (Not Given - Provider: Rima Rene RN - Reason: Patient/family refused) 08 (Given - Provider: Kath Finnegan RN)1400 (Due)2099 (Due) enoxaparin (LOVENOX) injection 40 mg 40 mg, SubCUTAneous, DAILY, First dose on Thu09/13/21 at 1845, Until Discontinued, Indication of Use: Prophylaxis-DVT/PE 1844 (Due) 810 (Given - Provider: Kath Finnegan RN) gabapentin (NEURONTIN) capsule 300 mg 300 mg, Oral, 3 TIMES DAILY, First dose on Thu09/13/21 at 2099, Until Discontinued, Hold for excessive sedation 2105 (Not Given - Provider: Rima Rene RN - Reason: Patient/family refused) 810 (Given - Provider: Kath Finnegan RN)1400 (Due)2099 (Due) lactated ringers bolus (COMPLETED) 500 mL, IntraVENous, at 491.8 mL/hr, Administer over 61 Minutes, ONCE, On Thu09/13/21 at 1600, For 1 dose 1556 (New Bag - Provider: Manan Gagnon RN - Comment: bolus from flv562 MLs given)1632 (Stopped - Provider: Manan Gagnon RN) LORazepam (ATIVAN) injection 2 mg (COMPLETED) 2 mg, IntraMUSCular, ONCE, 1 dose, On Thu09/13/21 at 0100 0059 (Given - Provider: Vannesa Hooker RN) magnesium chloride (MAG DELAY) extended release tablet 128 mg (COMPLETED) 128 mg (2 tablet), Oral, ONCE, 1 dose, On 09/14/21 at 0930 0957 (Given - Provid er: Kath Finnegan RN) magnesium sulfate 4000 mg in 100 mL IVPB premix (CANCELED) 4,000 mg, IntraVENous, at 25 mL/hr, Administer over 4 Hours, ONCE, On 09/14/21 at 0730, For 1 dose, Recommended infusion rate not to exceed 1,000 mg (milligrams) per hour. 0812 (New Bag - Provider: Kath Finnegan RN)0917 (Stopped - Provider: Kath Finnegan RN) PHENobarbital (LUMINAL) tablet 64.8 mg 64.8 mg, Oral, EVERY 4 HOURS, First dose on Thu09/13/21 at 1830, Until Discontinued, Hold if patient unarousable 1830 (Due)2217 (Not Given - Provider: Rima Rene RN [...] 40 mEq, Oral, ONCE, 1 dose, On 09/14/21 at 0730, Do not crush, chew, or [...] refused) 08 (Given - Provider: Kath Finnegan RN)2100 (Due) therapeutic multivitamin-minerals 1 tablet 1 tablet, Oral, DAILY, First dose on Thu09/13/21 at 1830, Until Discontinued 1830 (Due) 0811 (Given - Provider: Kath Finnegan, CHRISTI) traMADol (ULTRAM) tablet 100 mg(Linked Group 1) 100 mg, Oral, EVERY 4 HOURS, 6 doses, First dose on 09/13/21 at 1830, Last dose on 09/14/21 at 1430 1830 (Due)2220 (Not Given - Provider: Rima Rene RN - Reason: Patient/family refused) 0139 (Given - Provider: Rima Rene, RN)0641 (Given - Provider: Rima Rene, CHRISTI)1155 (Not Given - Provider: Kath Finnegan RN [...] Gagnon RN)1245 (New Bag - Provider: Manan Gagonn RN)2105 (Rate/Dose Verify - Provider: Rima Rene [...] on Thu09/13/21 at 1830, Last dose on Thu09/14/21 at 1430 Followed by traMADol (ULTRAM) tablet [...] 6 HOURS PRN, Starting on Thu09/13/21 at 181, Until Discontinued, Nausea, Vomiting
Per [facility] Medication policy #4027: Use ondansetron first; if not relieved after 30 minutes, then use promethazine.
Or ondansetron (ZOFRAN) injection 4 mgJump to med 4 mg, IntraVENous, EVERY 6 HOURS PRN, Starting on Thu09/13/21 at 181, Until Discontinued, Nausea, Vomiting
Administer if oral [...] BE BASED ON THE PRIMARY CLINICAL RECORDS. [facility] [facility]. provides no warranty or guarantee of the accuracy or completeness of information in this document.
--- NOTE | 2025-04-29 23:37 | EX.ED.DYSGE1 ---
HPI History of Present Illness Chief Complaint: Cough Informant: patient and friend Narrative Narrative: Patient is a 39-year-old female with past medical history of polysubstance abuse now sober. However she states that she continues to smoke cigarettes and vape. She states that over the last few days she has been having mild congestion cough and bouts of shortness of breath. With concern for potential infection she presents for evaluation [facility] Medical History Accidental overdose Active intravenous drug use Anemia Elevated LFTs History of hepatitis C History of heroin use History of methamphetamine use Methamphetamine dependence Opiate withdrawal Severe protein-calorie malnutrition Status post elective Substance abuse Home Medications ?Medication ?Instructions ?Recorded ?Last Taken ?Type albuterol sulfate 90 mcg/actuation 2 puff inhalation Q6H PRN PRN 11/07/24 Unknown History aerosol inhaler wheezing multivitamin with folic acid 400 1 tab PO DAILY 11/07/24 Unknown History mcg tablet (Tab-A-Nasir) omeprazole 20 mg capsule,delayed 20 mg PO DAILY 11/07/24 Unknown History release ropinirole 1 mg tablet 1 mg PO QHS 11/07/24 Unknown History ipratropium 0.5 mg-albuterol 3 mg 3 ml inhalation 4X/DAY PRN 04/29/25 Unknown Rx (2.5 mg base)/3 mL nebulization Shortness of breath/wheeze #180 mL soln nebulizer and compressor #1 ea 04/29/25 Unknown Rx prednisone 10 mg tablet 10 mg PO UD #33 tabs 04/29/25 Unknown Rx Allergy/AdvReac Type Severity Reaction Status Date / Time ropinirole (From Requip) Allergy Shortness Verified 04/29/25 22:01 of breath Family History Other Cancer Colon cancer Diabetes Heart disease Surgical History Status post Status post tonsillectomy Status post tubal ligation Social History Smoking Status: Current every day smoker tobacco type: cigarettes substance use type: crack/cocaine, IV drugs and methamphetamine ROS ROS ED Constitutional Constitutional ED: Denies chills or fever(s) ENT ENT ED: Reports rhinorrhea; Denies sore throat Cardiovascular Cardiovascular: Denies chest pain, palpitations or racing heartbeat Respiratory/Chest Respiratory/Chest: Reports cough and dyspnea Gastrointestinal Gastrointestinal: Denies abdominal pain, diarrhea, nausea or vomiting Musculoskeletal Musculoskeletal: Denies myalgias Integumentary Denies rash Neurologic Neurologic: Denies headache(s) Hematologic/Lymphatic Hematologic/Lymphatic: Denies easy bleeding or easy bruising Allergic/Immunologic Allergic/Immunologic ED: Denies mouth swelling, tongue swelling or urticaria EXAM Physical Exam Const Vital Signs: 04/29/25 22:00 04/29/25 22:06 04/29/25 22:29 Temperature 98.4 F Temperature Source Oral Pulse Rate 107 H 82 Respiratory Rate 18 18 Respiratory Effort Normal Respiratory Pattern Normal Blood Pressure 116/69 Blood Pressure Mean 84 Pulse Ox 99 Oxygen Delivery Method Room Air Room Air Positive well nourished and well developed General Appearance ED: well developed; Negative for pallor HEENT HEENT Narrative: Normocephalic atraumatic Bilateral TMs are slightly retracted but show no secondary findings to suggest infection Nasal mucosa is hyperemic and boggy No tongue or lip swelling no oral lesions no airway edema or compromise Patient has cobblestoning noted in the posterior pharynx consistent with sinus drainage but no secondary findings to suggest infection Eyes PERRL and EOMs intact bilaterally General Eye ED: Negative for scleral icterus Neck supple and no JVD Chest Wall palpation of chest normal Resp normal respiratory effort Resp Narrative: Breath sounds are diminished throughout with both inspiratory and expiratory wheezing No nasal flaring retractions tachypnea or accessory muscle use Cardio regular rate and regular rhythm Extremity normal to inspection Extremity Narrative: No asymmetric edema no pitting edema negative Homans' sign bilaterally Neuro oriented x3, CN's II-XII intact bilaterally and no sensory deficits noted Sensorium / Orientation: alert Motor Exam: strength 5/5 throughout Psych mental status grossly normal Skin no rashes or lesions noted General Skin Exam: Negative for jaundice or pallor MDM MDM MDM Narrative Medical decision making narrative: Patient arrived to the ER in no acute respiratory distress and satting in the high 90s on room air. However with reports of congestion cough and shortness of breath symptoms could be related to a viral infection such as influenza COVID or RSV. Patient also could have lung pathology such as pneumonia or spontaneous pneumothorax or vaping lung syndrome. Therefore a chest x-ray is obtained as well as a viral swab. Viral swab was negative and chest x-ray revealed no acute lung pathology. After receiving breathing treatments her breath sounds greatly improved and she reported feeling much better. This would indicate bronchospasm most likely from underlying irritation from smoking and vaping. At this time as she does not have findings of pneumonia or pneumothorax she is not hypoxic or in respiratory distress there is no need for further intervention and she is otherwise safe for discharge. History & Record Review Discussion w/independent historian: Patient Radiography Diagnostic Testing: Clinical Impression(s) from Imaging Studies Chest X-Ray 04/29/25 22:14 IMPRESSION: NO ACUTE FINDINGS. Reading Location: [address] Chest x-ray as interpreted by the emergency medicine physician reveals no acute infiltrate pneumothorax or pleural effusion Discharge Plan Triage Chief Complaint: Cough ED Provider: Christopher Fenton Dx/Rx/DC Orders Clinical Impression: Acute bronchospasm, Tobacco use Instructions: ED Bronchospasm (Adult) Prescriptions: New prednisone 10 mg tablet 10 mg PO UD Qty: 33 0RF Rx Instructions: Take 4 tablets daily for 3 days, then 3 daily for 3 days, then 2 daily for 3 days, then 1 a day for 3 days then 1 QOD for 3 doses. (DME) nebulizer and compressor Device See Rx Instructions .Route Qty: 1 0RF Rx Instructions: As directed ipratropium-albuterol 0.5 mg-3 mg(2.5 mg base)/3 mL solution for nebulization 3 ml inhalation 4X/DAY PRN (Reason: Shortness of breath/wheeze) Qty: 180 0RF No Action ropinirole 1 mg tablet 1 mg PO QHS omeprazole 20 mg capsule,delayed release(DR/EC) 20 mg PO DAILY albuterol sulfate 90 mcg/actuation HFA aerosol inhaler 2 puff inhalation Q6H PRN PRN (Reason: wheezing) multivitamin with folic acid [Tab-A-Nasir] 400 mcg tablet 1 tab PO DAILY Primary Care Provider: Care Physician,No Primary Referrals: Care Physician,No Primary [Primary Care Provider, Medical] Activity Restrictions/Additional Instructions: Your x-ray revealed no pneumonia and your COVID influenza and RSV test was negative. This indicates your bronchospasm is most likely allergic in nature. Continue your albuterol treatments as well as a steroid to help control symptoms and return to the ER should you have any further concerns Print Language: Greenlandic Disposition Disposition: Home, Self Care Discharge Date/Time: 04/29/25 23:44
[2025-04-29] MEDS: Albuterol Sulfate 8 gm Inhaler (60 puffs) 2 PUFF INHALATION (23:42)
[2025-04-29 23:43] VITALS: BP 122/78; PULSE 88; RESP 16; TEMP 36.7; O2SAT 98
== END 2025-04-29 23:44 | disposition home or self-care (01) ==
PROVIDERS: Emergency Provider Emergency Medicine; Visit Provider Emergency Medicine
DX: J98.01 Acute bronchospasm (principal)
CPT/HCPCS: 71046; 87631; 94640; 99283